=== PATIENT | female | born 1955 | race Caucasian/White ===

== ENCOUNTER → 2016-06-18 | Outpatient (CLI) | payer BC ==
[~2016-06-18] MED LIST: ALBU1AER9 INH; CINN500T PO; DOCU100C PO; LEVO75TA PO; NORT50CA PO; PRLSR20 PO; PROB1TAB16 PO; TRAM37.52 PO; TRAZ50TA35 PO; TRIA75TA PO; [UNRECOGNIZED DRUG - CODE] PO
--- NOTE | 2016-06-18 11:00 | DIAGNOSTIC IMAGING REPORT ---
CT OF THE CHEST WITHOUT IV CONTRAST CLINICAL HISTORY: COPD, Eosinophilic granuloma. Lung nodule. COMPARISON STUDY: 12/26/2015, 08/27/2015 CT DOSE: 609.93 mGy.cm TECHNIQUE: CT of the thorax was performed from the thoracic inlet to the lung bases. Images are reviewed in the axial, sagittal, and coronal planes. IV contrast was not administered for this examination. FINDINGS: Thyroid: Imaged portions of the thyroid gland are normal in appearance. Thoracic aorta: The thoracic aorta is normal in course and caliber, noting standard 3 vessel arch anatomy. Heart: There are moderate coronary artery calcifications present. Lungs and pleural spaces: There is right apical pleural and parenchymal scarring. There is evidence for pulmonary emphysema. There is no focal pulmonary consolidation. There is subpleural reticulation and microcyst formation. There is a stable 8 mm left lower lobe pulmonary nodule as visualized in image #[id number]. Mediastinum: There are mildly enlarged paratracheal lymph nodes measuring up to 11 mm in diameter. These are minimally more prominent than on the preceding study. Kalyn: There is no evidence of pathologic hilar adenopathy given the limitations of a noncontrast study Axilla: Clear. Upper abdomen: There is hepatic steatosis. The gallbladder surgically absent. There is calcific material in the region of the gallbladder fossa. Skeletal structures: There are no lytic or blastic osseous lesions. IMPRESSION: 1. Emphysema with persistent subpleural reticulation 2. Right upper lobe pleural and parenchymal scarring similar to the prior study 3. Stable (x9 months) 8 mm left lower lobe pulmonary nodule. Per Fleischner criteria, a follow-up study in 15 months is recommended. 4. Hepatic steatosis 5. Minimally enlarged mediastinal lymph nodes Please refer to below summary of Fleischner criteria recommendations for follow-up of incidental CT nodules (Andreas Forbes, Guidelines for management of small pulmonary nodules detected on CT scans: A statement from the Fleischner Society, Radiology 237: [phone].) Low Risk Patient: Minimal or no smoking or other known risk factors for malignancy <=4 mm: No follow-up needed. >4-6 mm: Initial follow-up CT at 12 months; if unchanged, no further follow-up. >6-8 mm: Initial follow-up CT at 6-12 months then at 18-24 months if no change. >8 mm: Follow-up CT at \R\3, 9, 24 months, or PET and/or biopsy. High Risk Patient: History of smoking or other known risk factors <=4 mm: Follow-up at 12 months; if unchanged, no further follow-up. >4-6 mm: Initial follow-up CT at 6-12 months then at 18-24 months if no change. >6-8 mm: Initial follow-up CT at 3-6 months then at 9-12 and 24 months if no change. >8 mm: Same as low risk patient. Note: Nodule size measured as average of length and width. Ground glass or partly solid nodules may require longer follow-up to exclude indolent adenocarcinoma. Electronically signed by: Adi Haro M.D. 06/18/2016 10:59 AM Dictated Date/Time: 06/18/2016 10:49 AM
== END | disposition home or self-care (01) ==
LOC: C.CTS 10:21
PROVIDERS: ATTEND Internal Medicine Pulmonary Disease
DX: C96.6 Unifocal Langerhans-cell histiocytosis (principal); J44.9 Chronic obstructive pulmonary disease, unspecified; R91.1 Solitary pulmonary nodule; J43.9 Emphysema, unspecified

== ENCOUNTER → 2016-06-21 | Outpatient (CLI) | payer BC ==
--- NOTE | 2016-06-21 15:14 | DIAGNOSTIC IMAGING REPORT ---
LEFT FOOT 3 VIEWS CLINICAL HISTORY: Cellulitis. FINDINGS: 3 views of the left foot are obtained. No prior studies are for comparison at the time of dictation. The skeletal structures appear osteopenic. There is no radiographic evidence of fracture. There is a bony excrescence arising from the dorsal/lateral proximal shaft of the first metatarsal which measures at least 2.5 cm. The appearance is typical for an osteochondroma. Mild arthritic change is present the first metatarsophalangeal joint. The joint spaces of the foot are otherwise well-maintained. Mild soft tissue edema is suggested in the forefoot. No subcutaneous gas or radiodense foreign body is seen. IMPRESSION: 1. Osteopenia and mild arthritic change with no acute bony abnormality seen in the left foot. 2. There is mild soft tissue swelling suggested in the forefoot. This could represent cellulitis as clinically suspected. 3. A 2.5 cm bony excrescence arising from the proximal shaft of the first metatarsal is typical appearance for an osteochondroma. Consider orthopedic follow-up if there is pain at this site. Electronically signed by: Mikhail Prater M.D. 06/21/2016 3:13 PM Dictated Date/Time: 06/21/2016 3:07 PM
== END | disposition home or self-care (01) ==
LOC: C.RAD1850 14:53
PROVIDERS: ATTEND Physician Assistant Medical
DX: L03.119 Cellulitis of unspecified part of limb (principal)

== ENCOUNTER → 2016-08-04 | Outpatient (CLI) | payer BC ==
[2016-08-04 12:27] LABS: ESTIMATED AVERAGE GLUCOSE 137 mg/dl; HA1C FLAG Normal (Normal)
[2016-08-04 13:45] LABS: ALT/SGPT 50 U/L (12-78); AST/SGOT 52 U/L (15-37); BLOOD UREA NITROGEN 15 mg/dl (7-18); BUN/CREATININE RATIO 16.6 (10-20); CALCIUM 9.2 mg/dl (8.5-10.1); CARBON DIOXIDE 29 mmol/L (21-32); CHLORIDE 100 mmol/L (98-107); CREATININE 0.88 mg/dl (0.60-1.20); GLUCOSE 165 mg/dl (70-99); POTASSIUM 3.7 mmol/L (3.5-5.1); SODIUM 137 mmol/L (136-145)
[2016-08-04 13:56] LABS: ALB/GLOB RATIO 0.8 (0.9-2); ALKALINE PHOSPHATASE 118 U/L (45-117)
== END | disposition home or self-care (01) ==
LOC: C.LABBFT 08:59
PROVIDERS: ATTEND Internal Medicine
DX: E11.9 Type 2 diabetes mellitus without complications (principal); E03.9 Hypothyroidism, unspecified; R77.1 Abnormality of globulin

== ENCOUNTER → 2016-08-09 | Outpatient (CLI) | payer BC ==
[2016-08-09 18:02] LABS: ALT/SGPT 44 U/L (12-78); AST/SGOT 62 U/L (15-37); BLOOD UREA NITROGEN 25 mg/dl (7-18); CALCIUM 9.4 mg/dl (8.5-10.1); CARBON DIOXIDE 32 mmol/L (21-32); CHLORIDE 104 mmol/L (98-107); GLUCOSE 89 mg/dl (70-99); POTASSIUM 3.8 mmol/L (3.5-5.1); SODIUM 141 mmol/L (136-145)
[2016-08-09 18:05] LABS: ALB/GLOB RATIO 0.8 (0.9-2); ALKALINE PHOSPHATASE 111 U/L (45-117); CHOLESTEROL 190 mg/dl (0-200); CHOLESTEROL/HDL RATIO 3.5; HDL CHOLESTEROL 54 mg/dl; LDL CHOLESTEROL CALCULATED 109 mg/dl; TRIGLYCERIDES 137 mg/dl (0-150); VERY LOW DENSITY LIPOPROT CALC 27 mg/dl
[2016-08-09 18:09] LABS: RATIO 16.2 mcg/mg (0-30.0)
[2016-08-10 07:15] LABS: ESTIMATED AVERAGE GLUCOSE 143 mg/dl; HA1C FLAG Normal (Normal)
== END | disposition home or self-care (01) ==
LOC: C.LABBFT 09:11
PROVIDERS: ATTEND Nurse Practitioner
DX: M10.9 Gout, unspecified (principal); E11.42 Type 2 diabetes mellitus with diabetic polyneuropathy

== ENCOUNTER → 2016-08-30 | Outpatient (CLI) | payer BC ==
[2016-08-30 12:54] LABS: BLOOD UREA NITROGEN 56 mg/dl (7-18); BUN/CREATININE RATIO 24.3 (10-20); CARBON DIOXIDE 26 mmol/L (21-32); CHLORIDE 103 mmol/L (98-107); GLUCOSE 108 mg/dl (70-99); POTASSIUM 4.1 mmol/L (3.5-5.1); SODIUM 138 mmol/L (136-145)
[2016-08-30 13:03] LABS: CALCIUM 8.5 mg/dl (8.5-10.1)
== END | disposition home or self-care (01) ==
LOC: C.LABBFT 10:50
PROVIDERS: ATTEND Nurse Practitioner
DX: I10 Essential (primary) hypertension (principal); E03.9 Hypothyroidism, unspecified

== ENCOUNTER → 2016-09-06 | Outpatient (CLI) | payer BC ==
[2016-09-06 12:24] LABS: BLOOD UREA NITROGEN 18 mg/dl (7-18); BUN/CREATININE RATIO 15.2 (10-20); CARBON DIOXIDE 27 mmol/L (21-32); CHLORIDE 103 mmol/L (98-107); GLUCOSE 198 mg/dl (70-99); SODIUM 142 mmol/L (136-145)
[2016-09-06 12:29] LABS: CALCIUM 8.8 mg/dl (8.5-10.1)
== END | disposition home or self-care (01) ==
LOC: C.LABBFT 09:43
PROVIDERS: ATTEND Nurse Practitioner
DX: R60.9 Edema, unspecified (principal)

== ENCOUNTER → 2016-09-21 | Outpatient (CLI) | payer BC ==
[2016-09-21 14:02] LABS: BLOOD UREA NITROGEN 19 mg/dl (7-18); BUN/CREATININE RATIO 16.8 (10-20); CALCIUM 8.7 mg/dl (8.5-10.1); CARBON DIOXIDE 28 mmol/L (21-32); CHLORIDE 104 mmol/L (98-107); GLUCOSE 184 mg/dl (70-99); POTASSIUM 4.6 mmol/L (3.5-5.1); SODIUM 139 mmol/L (136-145)
== END | disposition home or self-care (01) ==
LOC: C.LABBFT 10:24
PROVIDERS: ATTEND Nurse Practitioner
DX: N17.9 Acute kidney failure, unspecified (principal)

== ENCOUNTER → 2016-10-05 | Outpatient (CLI) | payer BC ==
[2016-10-05 14:38] LABS: HEMATOCRIT 38.2 % (37-47); MEAN CELL VOLUME 86.2 fL (80-100); MEAN CORPUSCULAR HEMOGLOBIN 29.3 pg (25-34); MEAN PLATELET VOLUME 10.7 fL (7.4-10.4); PLATELET COUNT 193 K/uL (130-400); RED BLOOD COUNT 4.43 M/uL (4.2-5.4); WHITE BLOOD COUNT 9.11 K/uL (4.8-10.8)
[2016-10-05 15:17] LABS: ALT/SGPT 41 U/L (12-78); CREATININE 0.95 mg/dl (0.60-1.20); URIC ACID 8.5 mg/dl (2.6-7.2)
[2016-10-05 15:20] LABS: ALKALINE PHOSPHATASE 103 U/L (45-117); AST/SGOT 48 U/L (15-37)
== END | disposition home or self-care (01) ==
LOC: C.LAB1850 13:38
PROVIDERS: ATTEND Internal Medicine Rheumatology
DX: R60.9 Edema, unspecified (principal); M10.9 Gout, unspecified

== ENCOUNTER → 2017-01-17 | Outpatient (CLI) | payer BC ==
--- NOTE | 2017-01-17 09:28 | DIAGNOSTIC IMAGING REPORT ---
CHEST 2 VIEWS ROUTINE HISTORY: 61 years-old Female R06.89 Adventitious breath sounds symptoms are acute in nature. COMPARISON: Chest CT 06/18/2016 TECHNIQUE: PA and lateral views of the chest FINDINGS: Cardiomediastinal and hilar silhouettes are within normal limits. There is atherosclerosis of the aorta. Postsurgical changes of the right lung apex with adjacent subsegmental pleural-parenchymal scarring. Evidence changes redemonstrated. Previously noted areas of subpleural reticulation on chest CT are not as identified by radiography. No pneumothorax, pleural effusion or focal airspace consolidation. Mild background interstitial coarsening. Bones are grossly intact. Prior cholecystectomy. IMPRESSION: 1. No acute cardiopulmonary process. 2. Emphysema with background chronic reticular interstitial opacities. 3. Postsurgical changes of the right lung apex. The above report was generated using voice recognition software. It may contain grammatical, syntax or spelling errors. Electronically signed by: Lalito Vines M.D. 01/17/2017 9:26 AM Dictated Date/Time: 01/17/2017 9:24 AM
== END | disposition home or self-care (01) ==
LOC: C.RAD1850 09:13
PROVIDERS: ATTEND Nurse Practitioner
DX: R06.89 Other abnormalities of breathing (principal)

== ENCOUNTER → 2017-01-24 | Outpatient (CLI) | payer BC ==
--- NOTE | 2017-01-25 07:26 | MAMMOGRAPHY REPORT ---
BILATERAL DIGITAL SCREENING MAMMOGRAM TOMOSYNTHESIS WITH CAD: 01/24/2017 CLINICAL HISTORY: Routine screening. Patient has no complaints. TECHNIQUE: Breast tomosynthesis in addition to standard 2D mammography was performed. Current study was also evaluated with a Computer Aided Detection (CAD) system. COMPARISON: Comparison is made to exams dated: 01/22/2016 mammogram, 01/20/2015 mammogram, 4 mammogram, 01/18/2013 mammogram, 01/18/2012 mammogram, and 12/29/2009 mammogram - [facility]. BREAST COMPOSITION: There are scattered areas of fibroglandular density in both breasts. FINDINGS: There are scattered punctate benign-appearing micro-calcifications bilaterally. Stable no dularity in the right breast. No new suspicious mass, architectural distortion or cluster of microcal cifications is seen. IMPRESSION: ACR BI-RADS CATEGORY 2: BENIGN There is no mammographic evidence of malignancy. A 1 year screening mammogram is recommended. The pa tient will receive written notification of the results. Approximately 10% of breast cancers are not detected with mammography. A negative mammographic report should not delay biopsy if a clinically suggestive mass is present. Niru Boston M.D. ay/:01/24/2017 20:35:44 Surgical Lead: Leeanna ALEXANDER)(Michelle), [facility] letter sent: Normal 1/2 BI-RADS Code: ACR BI-RADS Category 2: Benign
== END | disposition home or self-care (01) ==
LOC: C.MAMM 10:16
PROVIDERS: ATTEND Internal Medicine
DX: Z12.31 Encounter for screening mammogram for malignant neoplasm of breast (principal)

== ENCOUNTER → 2017-02-09 | Outpatient (CLI) | payer BC ==
[2017-02-09 17:36] LABS: BASO % 0.5 %; BASO ABS # 0.06 K/uL (0-0.2); COMPLETE YES; EOS % 0.7 %; HEMATOCRIT 41.2 % (37-47); IG% 0.2 %; LYMPH % 36.9 %; LYMPH ABS # 4.47 K/uL (1.2-3.4); MEAN CELL VOLUME 87.8 fL (80-100); MEAN CORPUSCULAR HEMOGLOBIN 28.8 pg (25-34); MEAN CORPUSCULAR HGB CONC 32.8 g/dl (32-36); MEAN PLATELET VOLUME 11.2 fL (7.4-10.4); NEUT % 57.7 %; PLATELET COUNT 215 K/uL (130-400); RED BLOOD COUNT 4.69 M/uL (4.2-5.4); WHITE BLOOD COUNT 12.11 K/uL (4.8-10.8)
[2017-02-09 17:48] LABS: ALT/SGPT 51 U/L (12-78); AST/SGOT 67 U/L (15-37); BLOOD UREA NITROGEN 13 mg/dl (7-18); BUN/CREATININE RATIO 17.4 (10-20); CALCIUM 8.6 mg/dl (8.5-10.1); CARBON DIOXIDE 29 mmol/L (21-32); CHLORIDE 104 mmol/L (98-107); CREATININE 0.72 mg/dl (0.60-1.20); GLUCOSE 83 mg/dl (70-99); POTASSIUM 3.6 mmol/L (3.5-5.1); SODIUM 139 mmol/L (136-145); URIC ACID 4.8 mg/dl (2.6-7.2)
[2017-02-09 17:59] LABS: CREATININE RANDOM URINE 63.9 mg/dl
[2017-02-09 18:00] LABS: ALB/GLOB RATIO 0.8 (0.9-2); ALKALINE PHOSPHATASE 115 U/L (45-117); CHOLESTEROL 198 mg/dl (0-200); CHOLESTEROL/HDL RATIO 3.6; HDL CHOLESTEROL 55 mg/dl; LDL CHOLESTEROL CALCULATED 117 mg/dl; THYROID STIMULATING HORMONE 0.296 uIu/ml (0.300-4.500); TRIGLYCERIDES 129 mg/dl (0-150); VERY LOW DENSITY LIPOPROT CALC 26 mg/dl
[2017-02-10 07:45] LABS: ESTIMATED AVERAGE GLUCOSE 134 mg/dl; HA1C FLAG Normal (Normal)
== END | disposition home or self-care (01) ==
LOC: C.LABBFT 12:07
PROVIDERS: ATTEND Internal Medicine Rheumatology
DX: E11.42 Type 2 diabetes mellitus with diabetic polyneuropathy (principal); M10.9 Gout, unspecified; E79.0 Hyperuricemia without signs of inflammatory arthritis and tophaceous disease; E03.9 Hypothyroidism, unspecified; E55.9 Vitamin D deficiency, unspecified; E78.00 Pure hypercholesterolemia, unspecified

== ENCOUNTER → 2017-02-15 | Outpatient (CLI) | payer BC ==
--- NOTE | 2017-02-15 11:35 | DIAGNOSTIC IMAGING REPORT ---
(CHEST) THORAX WITHOUT CT DOSE: 641.77 mGy.cm HISTORY: J44.9 Chronic obstructive pulmonary eqrcngsM91.1 Lung [id number]. TECHNIQUE: Multiaxial CT images of the chest were performed without contrast. A dose lowering technique was utilized adhering to the principles of ALARA. COMPARISON: Chest CT 06/18/2016. FINDINGS: The left lower lobe irregular nodule has increased in size and now measures 9 x 9 mm, previous measuring 8 x 4 mm. This may contain a punctate focus of central cavitation. Emphysema and diffuse residual thickening persists. Suture material within the right lung apex is again noted. No suspicious lytic or blastic osseous lesions. A few mildly enlarged mediastinal lymph nodes are again noted. Dominant lymph node measures 12 mm in short axis diameter. These are not significantly changed. No definite hilar lymphadenopathy. Normal caliber thoracic aorta. The heart is also normal in size. Cholecystectomy. Hepatic steatosis. The liver, spleen, and visualized adrenal glands are unremarkable. IMPRESSION: 1. Increase in size in the 9 x 9 mm irregular nodule within the left lower lobe. This may contain a punctate focus of central cavitation. Therefore, this could be due to inflammatory/infectious change. However, neoplasm remains the diagnosis of exclusion. At a minimum, 2-[address] follow-up is recommended. 2. Emphysema. 3. Chronic interstitial thickening. 4. Stable borderline mediastinal lymphadenopathy. Electronically signed by: Prosper Douglas M.D. 02/15/2017 11:34 AM Dictated Date/Time: 02/15/2017 11:24 AM
== END | disposition home or self-care (01) ==
LOC: C.CTS 10:20
PROVIDERS: ATTEND Internal Medicine Pulmonary Disease
DX: J44.9 Chronic obstructive pulmonary disease, unspecified (principal); R09.89 Other specified symptoms and signs involving the circulatory and respiratory systems; R91.1 Solitary pulmonary nodule

== ENCOUNTER → 2017-04-12 | Outpatient (CLI) | payer BC ==
--- NOTE | 2017-04-12 10:04 | DIAGNOSTIC IMAGING REPORT ---
CT OF THE CHEST WITHOUT IV CONTRAST CLINICAL HISTORY: Pulmonary nodule follow-up. Abnormal chest CT. COMPARISON STUDY: Chest CT July 14, 2016 and February 15, 2017. CT DOSE: 505.24 mGycm TECHNIQUE: Axial images of the chest were obtained without IV contrast. Images were reviewed in the axial, sagittal, and coronal planes. IV contrast was not administered for this examination. A dose lowering technique was utilized adhering to the principles of ALARA. FINDINGS: Prominent mediastinal lymph nodes are unchanged. An index right paratracheal left node measures 1.1 cm in short axis diameter. This is unchanged. The size of the heart is at the upper limits of normal. There is extensive coronary artery calcification. There is no pericardial effusion. Central airways are patent. There is moderate emphysema. A 1.1 x 1 cm irregular solid nodule within the left lower lobe has minimally increased in size since CT of February 15, 2017 when it measured 1 x 0.9 cm. This has spiculated margins. No additional suspicious nodules are present. No consolidation to suggest pneumonia. There is no pneumothorax or pleural effusion. No suspicious osseous lesions are present. Fatty infiltration of the liver is noted. IMPRESSION: 1. Minimal increase in size of a 1.1 x 1 cm spiculated left lower lobe nodule. This nodule is highly suggestive of bronchogenic carcinoma. Pulmonary consultation is recommended. 2. Moderate emphysema. 3. No change in prominent mediastinal lymph nodes. No definite pathologic lymphadenopathy. 4. Extensive coronary artery calcification. Electronically signed by: Delfin Jones M.D. 04/12/2017 10:02 AM Dictated Date/Time: 04/12/2017 9:48 AM
== END | disposition home or self-care (01) ==
LOC: C.CTS 09:38
PROVIDERS: ATTEND Physician Assistant Medical
DX: R91.1 Solitary pulmonary nodule (principal); R93.8 Abnormal findings on diagnostic imaging of other specified body structures; J43.9 Emphysema, unspecified; R59.0 Localized enlarged lymph nodes; I25.10 Atherosclerotic heart disease of native coronary artery without angina pectoris

== ENCOUNTER → 2017-04-25 | Outpatient (CLI) | payer BC ==
[~2017-04-25] MED LIST changes: +ALLO100T PO
[2017-04-25 14:38] LABS: BASO % 0.8 %; BASO ABS # 0.08 K/uL (0-0.2); EOS % 0.4 %; EOS ABS # 0.04 K/uL (0-0.5); HEMOGLOBIN 13.7 g/dL (12.0-16.0); IG# 0.03 K/uL (0.00-0.02); LYMPH % 35.7 %; LYMPH ABS # 3.49 K/uL (1.2-3.4); MEAN CELL VOLUME 88.2 fL (80-100); MEAN CORPUSCULAR HEMOGLOBIN 28.8 pg (25-34); MEAN CORPUSCULAR HGB CONC 32.6 g/dl (32-36); MEAN PLATELET VOLUME 10.9 fL (7.4-10.4); MONO % 3.9 %; MONO ABS # 0.38 K/uL (0.11-0.59); NEUT % 58.9 %; NEUT ABS # 5.75 K/uL (1.4-6.5); PLATELET COUNT 199 K/uL (130-400); RED CELL DISTRIBUTION WIDTH SD 47.8 fL (36.4-46.3); WHITE BLOOD COUNT 9.77 K/uL (4.8-10.8)
[2017-04-25 15:10] LABS: BLOOD UREA NITROGEN 10 mg/dl (7-18); CALCIUM 9.1 mg/dl (8.5-10.1); CARBON DIOXIDE 28 mmol/L (21-32); CREATININE 0.66 mg/dl (0.60-1.20); GLUCOSE 98 mg/dl (70-99); POTASSIUM 3.5 mmol/L (3.5-5.1); SODIUM 137 mmol/L (136-145)
== END | disposition home or self-care (01) ==
LOC: C.LAB1850 12:28
PROVIDERS: ATTEND Surgery
DX: R91.1 Solitary pulmonary nodule (principal); Z01.812 Encounter for preprocedural laboratory examination

== ENCOUNTER → 2017-05-02 | Outpatient (CLI) | payer BC ==
[~2017-05-02] MED LIST changes: +ACET-1047 PO; -ALBU1AER9 INH; +CLC100 PO; +TRAM-453 PO; -TRAM37.52 PO
--- NOTE | 2017-05-02 11:15 | DIAGNOSTIC IMAGING REPORT ---
PET/CT CLINICAL HISTORY: Pulmonary nodule. COMPARISON STUDY: Chest CT scans dated 04/12/2017 and 08/27/2015. TECHNIQUE: One hour following the IV administration of 13.71 mCi of F-18 FDG, PET/CT examination was performed from the orbital meatal line through the bony pelvis. Noncontrast CT is performed for the purposes of anatomic correlation and attenuation correction. Note that this does not reflect a diagnostic CT examination. Images were reviewed on a separate [employer] independent workstation. Fused images were obtained. Standard uptake values reported are maximum values within the region of interest expressed in gm/mL. FINDINGS: PET FINDINGS: Head and neck: There is expected physiologic activity within the visualized brain parenchyma at the skull base and the salivary glands. Thorax: Evaluation of the thorax demonstrates expected physiologic myocardial activity. There is a 1.2 cm spiculated nodule in the left lower lobe seen on image #86. This is FDG avid with a maximum SUV of 4.4. No FDG avid mediastinal or hilar lymph nodes are identified. No additional pulmonary lesion is seen. Abdomen and pelvis: There is expected activity within the liver, spleen, kidneys, renal collecting system, and bladder. Low-level bowel activity is likely within physical limits. Unenhanced CT images: Partially visualized brain parenchyma the skull base is within normal limits. The bony orbits are intact and the orbital contents are unremarkable noting bilateral ocular lens implants. The visualized paranasal sinuses and the mastoid air cells appear clear. The salivary glands are within normal limits. The thyroid appears atrophic. No cervical lymphadenopathy is seen. There is mild atherosclerotic calcification of the thoracic aorta which is normal in caliber. The heart is normal in size. There are coronary artery calcifications. Emphysema is noted. No airspace consolidation or pleural effusion is identified. See above under PET findings for discussion of a left lower lobe pulmonary lesion. Postoperative changes suggested in the right lower lobe. There is no mediastinal, hilar, or axillary lymphadenopathy. There is evidence of hepatic steatosis. The gallbladder is surgically absent. The unenhanced spleen, adrenal glands, and pancreas are grossly normal. The kidneys demonstrate cortical atrophy and are without hydronephrosis. The abdominal aorta is normal in caliber noting advanced atherosclerotic calcification. No bowel obstruction is seen. A normal appendix is identified. There is mild colonic diverticulosis without CT evidence of acute diverticulitis. No intraperitoneal free air or abdominal ascites is identified. There is no abdominal, mesenteric, retroperitoneal, pelvic sidewall, or inguinal lymphadenopathy. The bladder is decompressed and grossly unremarkable. The uterus is surgically absent. No adnexal lesion is seen. Skeletal structures are osteopenic. Mild degenerative change and scoliosis are seen throughout the spine. IMPRESSION: 1. Again seen is a 1.2 cm spiculated pulmonary nodule in the left lower lobe. This is FDG avid and should be considered neoplasm until otherwise. 2. There is no evidence of FDG avid metastatic disease. 3. Emphysema. 4. Hepatic steatosis. 5. Additional findings as above. Electronically signed by: Mikhail Prater M.D. 05/02/2017 11:14 AM Dictated Date/Time: 05/02/2017 11:02 AM
== END | disposition home or self-care (01) ==
LOC: C.PET 07:05
PROVIDERS: ATTEND Surgery
DX: R91.1 Solitary pulmonary nodule (principal); J43.9 Emphysema, unspecified; K76.0 Fatty (change of) liver, not elsewhere classified

== ENCOUNTER 2017-05-04 09:36 | Inpatient (IN) | payer BC, OTHER ==
[2017-04-28 15:16] VITALS: BMI 34.0
[~2017-05-04] VITALS: Ht 165.1 cm; Wt 94.5 kg
[2017-05-04] VITALS (8 sets, daily range): BP systolic 102–152; BP diastolic 60–98; PULSE 86–99; TEMP 36.5–36.8; O2SAT 92–99; Ht 165.1 cm; Wt 94.5 kg
[~2017-05-04 09:36] MED LIST changes: -ACET-1047 PO; -CLC100 PO; +LACTATED RINGER'S 1000ML 1,000 ML IV SCH; -TRAM-453 PO
[2017-05-04] MEDS ORDERED: NEOSTIGMINE METHYLSULFATE 5 MG/5 ML SYR ONE (12:28)
[2017-05-04] MEDS ORDERED: FENTANYL CITRATE INJ 50 MCG/1 ML 2 ML VIAL ONE ×3 (12:28→15:52)
[2017-05-04] MEDS ORDERED: GLYCOPYRROLATE INJ 0.2 MG/ML VIAL ONE (12:28)
[2017-05-04] MEDS ORDERED: MIDAZOLAM HCL 1 MG/ML 2ML VIAL ONE (12:28)
[2017-05-04] MEDS ORDERED: LIDOCAINE HCL 2% 2 ML VIAL (20MG/ML) ONE (12:28)
[2017-05-04] MEDS ORDERED: DEXAMETHASONE SOD INJ 4 MG/ML VIAL ONE (12:28)
[2017-05-04] MEDS ORDERED: PROPOFOL IV EMULSION 10 MG/ML 20 ML VIAL IV ONE (12:28)
[2017-05-04] MEDS ORDERED: ONDANSETRON INJ 2 MG/ML 2 ML VIAL ONE (12:28)
--- NOTE | 2017-05-04 12:52 | History & Physical Bridge Note ---
H&P Re-Evaluation Bridge Note: I have examined the patient, reviewed the History & Physical and in the interval since the performance of the History & Physical I have noted the following changes of clinical significance: No changes noted
[2017-05-04] MEDS ORDERED: ALBUTEROL HFA INHALER 8.5 GM INH ONE (12:57)
[2017-05-04] MEDS ORDERED: SODIUM CHLORIDE 0.9% PF 50 ML VIAL ONE (13:15)
[2017-05-04] MEDS ORDERED: BUPIVACAINE 0.5 % 5 MG/1 ML MPF 30ML VIAL ONE (13:15)
[2017-05-04] MEDS ORDERED: BUPIVACAINE LIPOSOME 1/3% 266 MG/20 ML VIAL INFIL ONE (13:16)
[2017-05-04] MEDS ORDERED: CEFAZOLIN SOD 1 GM VIAL ONE ×2 (14:19→15:52)
[2017-05-04] MEDS ORDERED: ONDANSETRON INJ 2 MG/ML 2 ML VIAL IV PRN ×2 (15:30→18:15)
[2017-05-04] MEDS ORDERED: PROMETHAZINE HCL INJ 12.5 MG in SODIUM CHLORIDE 0.9% 50ML 50 ML IV PRN (15:30)
[2017-05-04] MEDS ORDERED: FLUMAZENIL 0.1 MG/1 ML 10 ML VIAL IV PRN (15:30)
[2017-05-04] MEDS ORDERED: ATROPINE SULFATE 0.1 MG/ML 5ML SYR IV PRN (15:30)
[2017-05-04] MEDS ORDERED: HYDROmorphone INJ 1 MG/ML SYR IV PRN (15:30)
[2017-05-04] MEDS ORDERED: LABETALOL HCL IV 5 MG/ML 20ML IV PRN (15:30)
[2017-05-04] MEDS ORDERED: NALOXONE HCL 0.4 MG/1 ML VIAL/CARP IV PRN (15:30)
[2017-05-04] MEDS ORDERED: EpHEDrine SULFATE INJ 50 MG/ML AMP IV PRN (15:30)
--- NOTE | 2017-05-04 15:46 | OPERATIVE REPORT ---
DATE OF OPERATION: 05/04/2017 PREOPERATIVE DIAGNOSIS: Suspicious left lower lobe mass with mild mediastinal adenopathy. POSTOPERATIVE DIAGNOSIS: Same. PROCEDURE PERFORMED: Video mediastinoscopy. SURGEON: Dr. Glen Vences. MATERIAL CONTROL SPECIALIST: LORI Hameed (Mr. Dalton was present for the entire case and helped hold the scope with the laboratory assistant and also closed the skin at the conclusion of the case). ANESTHESIA: General anesthesia endotracheal intubation. INDICATION OF THE PROCEDURE AND FINDINGS: Yessica Booth is a 61-year-old female with a suspicious lesion in the left lower lobe, which we are going to biopsy. I felt that prior to going in to do a possible lobectomy, we should evaluate the mediastinum even though the PET scan showed no evidence of hypermetabolic uptake. On 05/04/2017, the patient underwent an uncomplicated video mediastinoscopy and biopsy of right level 2, right level 4 and level 7 nodes. They were a bit large, but they were acanthotic. I sent this off to frozen sections. She tolerated it well. DESCRIPTION OF PROCEDURE: The patient was brought to the operating room, laid in supine position. General anesthesia induced and endotracheal intubation was performed. She was prepped and draped in usual sterile fashion. Incision was made one fingerbreadth above the sternal notch. Sharp and blunt dissection was used to dissect down the strap muscles, which were divided in the midline. We stayed in a relatively avascular plane. Blunt dissection was used to create a plane in the pretracheal area and then the video mediastinoscope was inserted. There were rather large right level 2 and right level 4 nodes as a mat of level 7 nodes. These were soft and acanthotic. I biopsied all 3 of these extensively. Bleeding was controlled with a suction cautery. I did not biopsy anything on the left side. She really had very little in the way of bleeding. I slowly withdrew the video mediastinoscope. A 3-0 Vicryl was used to close the strap muscles and 4-0 Monocryl was used in a running subcuticular fashion. I approximated the wound edges. She tolerated it well. I attest to the content of the Intraoperative Record and any orders documented therein. Any exception s are noted below.
[2017-05-04] MEDS ORDERED: SURGICEL ABSORB HEMOSTAT 2IN X 14IN TOP ONE (16:14)
[2017-05-04] MEDS ORDERED: EpHEDrine SULFATE 50MG/5ML SYR ONE (16:58)
[2017-05-04] MEDS ORDERED: PHENYLEPHRINE HCL INJ 10 MG/ML VIAL ONE (16:58)
[2017-05-04] MEDS ORDERED: HYDROmorphone INJ 2 MG/ML SYR/VIAL ONE (17:13)
[2017-05-04] MEDS ORDERED: ROCURONIUM BROMIDE 10 MG/ML 5 ML VIAL IV ONE (17:13)
--- NOTE | 2017-05-04 17:58 | [facility] Post Operative Brief Note ---
Immediate Operative Summary Operative Date May 04, 2017. Pre-Operative Diagnosis Left lung nodule. Post-Operative Diagnosis Carcinoma of the left lower lobe Procedure(s) Performed Video Mediastinoscopy with Biopsy; Left Video-Assisted Thoracoscopy with Left Lower Lobe Wedge Resection, Left Lower Lobectomy and Mediastinal Lymphadenectomy Jose J Surgeon Dr. Vences Blanking Press Operator Surgeon(s) Kenny Dalton, PAC Estimated Blood Loss 150ml Findings Consistent with Post-Op Diagnosis Specimens FS#6 left lower lobe for margins and diagnosis sent to lab at 1729 Anesthesia Type General
[2017-05-04] MEDS ORDERED: MoRPHine SULFATE 2 MG/ML CARP IV PRN (18:15)
--- NOTE | 2017-05-04 19:03 | Anesthesiology Progress Note ---
Anesthesia Post Op Note Date & Time May 04, 2017 at 19:03 Vital Signs Pain Intensity: 0 Vital Signs Past 12 Hours Date Time Temp Pulse Resp B/P (MAP) Pulse Ox O2 Delivery O2 Flow Rate FiO2 05/04/17 18:26 36.1 78 15 104/68 (80) 100 Oxymask 10 05/04/17 10:16 36.8 96 18 138/78 98 Room Air Notes Mental Status: alert / awake / arousable, participated in evaluation Pt Amnestic to Procedure: Yes Nausea / Vomiting: adequately controlled Pain: adequately controlled Airway Patency, RR, SpO2: stable & adequate BP & HR: stable & adequate Hydration State: stable & adequate Anesthetic Complications: no major complications apparent
--- NOTE | 2017-05-04 19:24 | DIAGNOSTIC IMAGING REPORT ---
CHEST ONE VIEW PORTABLE HISTORY: Status post left lower lobectomy. COMPARISON: Chest 01/17/2017. FINDINGS: Small left apical pneumothorax with a pleural gap of 1.5 cm. Left-sided chest tube terminates in the left lateral lung apex. Bibasilar densities favor atelectasis. The heart is mildly enlarged. Patient is slightly rotated. No evidence for pulmonary edema. Cholecystectomy. IMPRESSION: Small left pneumothorax with a left-sided chest tube in good position as described above. Electronically signed by: Prosper Douglas M.D. 05/04/2017 7:23 PM Dictated Date/Time: 05/04/2017 7:21 PM
[2017-05-04] MEDS ORDERED: NURSING VERBAL MED ORDER ONE (19:45)
--- NOTE | 2017-05-04 19:59 | OPERATIVE REPORT ---
DATE OF OPERATION: 05/04/2017 PREOPERATIVE DIAGNOSIS: Hypermetabolic mass, left lower lobe. POSTOPERATIVE DIAGNOSIS: Carcinoma, left lower lobe. PROCEDURE: 1. Robot-assisted thoracoscopic wedge resection of left lower lobe. 2. Thoracoscopic left lower lobectomy. SURGEON: Glen Vences MD. HOSPITAL UNIT CLERK: LORI Hameed, (MrZachery Dalton was present for the entire case and was at the patient's bedside while I was at the console. He was instrumental in first assisting throughout the entirety of the case and was present and closed the skin incisions at the conclusion of the case). ANESTHESIA: General anesthesia endotracheal intubation. INDICATION FOR PROCEDURE AND FINDINGS: Yessica Booth is a 61-year-old patient with a history of cigarette smoking in the past, was found to have a mass which was enlarging and hypermetabolic in her left lower lobe. A metastatic workup showed no evidence of spread. On 05/04/2017, I took the patient to the operating room and did a mediastinoscopy. Frozen section showed no evidence of metastatic disease. I then performed a wedge resection, although I really did not find the mass. Given its hypermetabolic activity, I elected to proceed with lobectomy. I performed the robot-assisted thoracoscopic lobectomy without difficulty. We did dissect out some lymph nodes. She tolerated it well. Frozen section of the mass showed this to be probable adenocarcinoma of the lung. Her margins were negative. DESCRIPTION OF THE PROCEDURE: The patient was brought to the operating room and was placed in supine position. General anesthesia induced and endotracheal intubation was performed. After performing the mediastinoscopy this was switched to a double lumen tube. The patient was placed in a right lateral decubitus position. Left chest prepped and draped in usual sterile fashion. A total of 5 incisions were made. Two 12 mm, two 8 mm and a 5 mm ports were placed in the eight interspace. Upon entering the chest cavity, the fissures were seen to be almost complete. We docked the robot and placed our instruments. We then took down the inferior pulmonary ligament. I really did not see a level 9 lymph node but she had sent several level 8 and we dissected out the inferior pulmonary vein. I then came down on the posterior aspect of the hilum and dissected out several lymph nodes and came up to the fissure. I then switched around anteriorly and took down the pleura and dissected out the vein nicely as well as the bronchus and then came down and the artery from the bronchus. The fissure was just about complete. Endo-MARI stapler was fired around the continuation of pulmonary artery below the takeoff of the lingula and then I fire another stapler to the artery to the superior segment of the lower lobe. We then fired a stapler across the bronchus distal to the lingular bronchus. We then fired a stapler across the vein. This was then delivered into an Endobag and taken off and I removed it from the bag through the assistance port where we had to enlarge. I did dissect out several level 11 and level 12 nodes; however, we lost one lung ventilation, it was difficult to get up around the hilum. We elected to stop. I did do an Exparel block with 266 mg of Exparel and 30 mL of 0.5% bupivacaine mixed with 100 mL of normal saline. We performed intercostal block from the 2nd to the 11th rib and also did injected the incision, especially chest tube site. A 24-Greek chest tube was directed towards the apex of the anterior most port. Sutured in place with heavy silk suture. The incisions were closed with 0 Vicryl to close the muscle layers especially the rn first assistant's port. 4-0 Monocryl was then used in running subcuticular fashion to approximate the wound edges. She tolerated it well and was extubated in the room. I attest to the content of the Intraoperative Record and any orders documented therein. Any exception s are noted below.
[2017-05-04] MEDS: ACETAMINOPHEN IV 1,000 MG in EMPTY BAG 0 ML IV SCH (20:00)
[2017-05-04] MEDS ORDERED: PHARMACY GLYCEMIC MGMT CONSULT PRN (20:01)
[2017-05-04] MEDS: KETOROLAC TROMETHAMINE 15 MG/ML VIAL IV. SCH (20:39)
[2017-05-04] MEDS: SODIUM CHLOR 0.45% + 20MEQ KCL 1,000 ML IV SCH (20:40)
[2017-05-04] MEDS ORDERED: LANTUS PER UNIT CHARGE SQ ONE (21:00)
--- NOTE | 2017-05-04 21:01 | Pharmacy Progress Note ---
Glycemic Control Intl Consult Date of Service May 04, 2017. Scope Glycemic Pharmacist consulted by Dr Vences on 05/04/17 for glycemic control and to write orders per [facility] inpatient glycemic control protocol Objective Weight (Kilograms): 94.55 Accuchecks BSG (last 24hrs): Test 05/04/17 09:57 05/04/17 19:30 05/04/17 20:38 Bedside Glucose 116 mg/dl (70-90) 181 mg/dl (70-90) 181 mg/dl (70-90) HbA1c 6.3% on 02/09/17 Recent Pertinent Medications Outpatient Anti-diabetic Regimen: * Cinnamon 500mg 2 tab po QAM Risk Factors for Insulin Resistance: * Steroids: Dexamethasone 8mg IV x1 at ~1230 05/04/17 * Recent Surgery: Lung lobectomy 05/04/17 * Diet:T2DM Assessment & Plan ASSESSMENT: * Ms. Booth is a 61yo F s/p lung lobectomy. Her most recent A1C is 6.3% from , indicative of pre-diabetes. She takes 2 tablets of 500mg cinnamon QAM, otherwise she takes nothing else for her pre-diabetes. She received 8mg of IV dexamethasone intra-operatively today. Along with her surgery today, I feel she is in a insulin resistant state for the next ~24hrs. PLAN FOR INPATIENT GLYCEMIC CONTROL: * Holding outpatient oral diabetes medications * Basal insulin with LANTUS 30u x1 * Correctional Insulin with NOVOLOG per scale ACHS * Goal Range: Low 110 mg/dL - High 140 mg/dL * Correction Factor: 15 mg/dL/unit * Nutritional / Prandial insulin per carb ratio of 1 unit per 6 grams CHO consumed * Please note that the plan above was derived based on current level of insulin resistance and hospital stress. These recommendations are appropriate for inpatient admission only. Plan of care upon discharge will need to be reassessed to avoid potential outpatient hypo/hyperglycemia. Thank you.
[2017-05-04] MEDS: INSULIN ASPART 100 UNITS/ML 3 ML PEN SC SCH (21:04)
[2017-05-04] MEDS: PREGABALIN 75 MG CAP PO SCH (21:09)
[2017-05-04] MEDS: TRAZODONE HCL 50 MG TAB PO SCH (21:10)
[2017-05-04] MEDS: NORTRIPTYLINE HCL 25 MG CAP PO SCH (21:10)
[2017-05-04] MEDS: PANTOprazole SOD 40 MG TAB PO SCH (21:10)
[2017-05-04] MEDS: DOCUSATE SODIUM 100 MG CAP PO SCH (21:10)
[2017-05-04] MEDS ORDERED: DEXTROSE 50% 50 ML SYR IV PRN (21:15)
[2017-05-04] MEDS ORDERED: GLUCAGON FOR INJ 1 MG VIAL SQ PRN (21:15)
[2017-05-04] MEDS ORDERED: GLUCOSE 10 TABS/TUBE PO PRN (21:15)
[2017-05-04] MEDS ORDERED: GLUCOSE 40% GEL 15 GM TUBE PO PRN (21:15)
[2017-05-04] MEDS: METOCLOPRAMIDE HCL INJ 5 MG/ML 2 ML VIAL IV. SCH (22:08)
[2017-05-05] VITALS (10 sets, daily range): BP systolic 93–128; BP diastolic 63–75; PULSE 78–94; TEMP 36.5–37; O2SAT 88–98
[2017-05-05] MEDS: ACETAMINOPHEN IV 1,000 MG in EMPTY BAG 0 ML IV SCH (03:52)
[2017-05-05] MEDS: KETOROLAC TROMETHAMINE 15 MG/ML VIAL IV. SCH ×3 (03:52→19:56)
[2017-05-05] MEDS: LEVOTHYROXINE 75 MCG TAB PO SCH (06:10)
[2017-05-05] MEDS: METOCLOPRAMIDE HCL INJ 5 MG/ML 2 ML VIAL IV. SCH ×2 (06:10→13:21)
--- NOTE | 2017-05-05 07:10 | DIAGNOSTIC IMAGING REPORT ---
CHEST ONE VIEW PORTABLE CLINICAL HISTORY: Postop examination COMPARISON STUDY: 05/04/2017 FINDINGS: The cardiac and sternal contours remain stable. There is a left-sided chest tube present. There is a left apical pneumothorax the pleural separation is 16 mm. There are improving right basilar airspace opacities. There is slight indistinctness of the left hemidiaphragm suggesting left basilar atelectasis.[ IMPRESSION: Persistent 16mm left apical pneumothorax. No change in the position of the left-sided chest tube Electronically signed by: Adi Haro M.D. 05/05/2017 7:09 AM Dictated Date/Time: 05/05/2017 7:08 AM
[2017-05-05] MEDS: SODIUM CHLOR 0.45% + 20MEQ KCL 1,000 ML IV SCH (07:57)
[2017-05-05 08:24] LABS: CALCIUM 7.9 mg/dl (8.5-10.1); CREATININE 0.63 mg/dl (0.60-1.20); POTASSIUM 3.7 mmol/L (3.5-5.1)
[2017-05-05 08:30] LABS: BASO % 0.2 %; BASO ABS # 0.03 K/uL (0-0.2); EOS % 0.2 %; EOS ABS # 0.02 K/uL (0-0.5); HEMATOCRIT 35.4 % (37-47); HEMOGLOBIN 11.8 g/dL (12.0-16.0); IG# 0.02 K/uL (0.00-0.02); LYMPH % 22.2 %; LYMPH ABS # 2.91 K/uL (1.2-3.4); MEAN CELL VOLUME 87.8 fL (80-100); MEAN CORPUSCULAR HEMOGLOBIN 29.3 pg (25-34); MEAN CORPUSCULAR HGB CONC 33.3 g/dl (32-36); MONO % 7.9 %; MONO ABS # 1.04 K/uL (0.11-0.59); NEUT % 69.3 %; NEUT ABS # 9.07 K/uL (1.4-6.5); PLATELET COUNT 192 K/uL (130-400); RED CELL DISTRIBUTION WIDTH CV 14.6 % (11.5-14.5); WHITE BLOOD COUNT 13.09 K/uL (4.8-10.8)
[2017-05-05] MEDS: DOCUSATE SODIUM 100 MG CAP PO SCH ×2 (08:37→21:02)
[2017-05-05] MEDS: ALLOPURINOL 100 MG TAB PO SCH (08:37)
[2017-05-05] MEDS: INSULIN ASPART 100 UNITS/ML 3 ML PEN SC SCH ×4 (08:41→21:00)
[2017-05-05] MEDS: PREGABALIN 75 MG CAP PO SCH ×3 (08:42→21:02)
[2017-05-05] MEDS ORDERED: NON-FORMULARY MEDICATION (Probiotic Product (Probiotic) 1 TAB) PO SCH (09:00)
[2017-05-05] MEDS ORDERED: CINNAMON PO SCH (09:00)
[2017-05-05 09:21] LABS: INR 1.1 (0.9-1.1); PTT PATIENT 24.7 SECONDS (21.0-31.0)
--- NOTE | 2017-05-05 09:30 | Surgery Progress Note ---
Subjective Date of Service: May 05, 2017. Pt. notes good pain control. No SOB. She is ambulating and tolerating oral intake. She is voiding without difficulty. Objective Vitals Date Time Temp Pulse Resp B/P (MAP) Pulse Ox O2 Delivery O2 Flow Rate FiO2 05/05/17 07:45 36.5 82 16 110/74 (86) 95 Nasal Cannula 1.0 05/05/17 06:00 90 Room Air 05/05/17 05:45 36.7 78 18 93/63 (73) 97 Nasal Cannula 1.0 05/05/17 03:45 36.5 84 16 102/67 (79) 98 Nasal Cannula 1.0 05/05/17 01:45 36.5 84 16 102/68 (79) 97 Nasal Cannula 1.0 05/05/17 00:10 Nasal Cannula 2.0 05/04/17 23:45 36.5 86 16 102/67 (79) 97 Nasal Cannula 1.0 05/04/17 22:46 36.7 91 18 102/60 (74) 97 Nasal Cannula 1.0 05/04/17 22:19 92 Room Air 05/04/17 21:45 36.5 99 18 125/72 (89) 97 Nasal Cannula 1.0 05/04/17 20:52 36.5 92 16 146/85 (105) 96 Nasal Cannula 2.0 05/04/17 20:15 36.5 89 16 142/85 (104) 97 Nasal Cannula 2.0 05/04/17 19:45 36.5 91 16 152/98 (116) 99 Nasal Cannula 2.0 05/04/17 19:45 Nasal Cannula 2.0 05/04/17 19:45 Nasal Cannula 2.0 05/04/17 19:36 145/83 05/04/17 19:32 89 8 99 05/04/17 19:32 89 8 05/04/17 19:31 166/93 05/04/17 19:27 85 13 05/04/17 19:27 85 13 97 05/04/17 19:26 137/98 05/04/17 19:22 88 9 05/04/17 19:22 88 9 98 05/04/17 19:21 155/87 05/04/17 19:17 84 12 98 05/04/17 19:17 84 12 05/04/17 19:16 157/80 05/04/17 19:14 154/89 05/04/17 19:12 86 13 98 05/04/17 19:12 86 13 05/04/17 19:11 153/87 05/04/17 19:07 86 12 05/04/17 19:07 86 12 97 05/04/17 19:06 150/77 05/04/17 19:05 36.2 82 21 150/77 98 Room Air 10 05/04/17 19:02 84 15 97 05/04/17 19:02 84 15 05/04/17 19:01 86 21 05/04/17 19:01 85 21 142/98 98 05/04/17 18:56 81 14 140/78 96 05/04/17 18:56 81 14 05/04/17 18:51 79 11 05/04/17 18:51 79 11 138/83 96 05/04/17 18:46 80 14 05/04/17 18:46 80 14 144/77 98 05/04/17 18:41 78 12 05/04/17 18:41 78 12 142/73 97 05/04/17 18:36 78 14 137/71 100 05/04/17 18:36 78 14 05/04/17 18:31 80 19 05/04/17 18:31 80 19 131/76 100 05/04/17 18:26 78 8 104/68 92 05/04/17 18:26 76 8 05/04/17 18:26 36.1 78 15 104/68 (80) 100 Oxymask 10 05/04/17 10:16 36.8 96 18 138/78 98 Room Air Physical Exam General: + well developed, + well nourished CV: + RRR Pulmonary: + pertinent finding (decreased BS at bases), No accessory muscle use, No respiratory distress Abdomen: + non-distended, + non tender, + soft Extremities: No calf tenderness Neurologic: + alert & oriented x 3 Laboratory Item Value Date Time Sodium Level 138 mmol/L 05/05/17 0745 Potassium Level 3.7 mmol/L 05/05/17 0745 Blood Urea Nitrogen 10 mg/dl 05/05/17 0745 Creatinine 0.63 mg/dl 05/05/17 0745 Item Value Date Time White Blood Count 13.09 K/uL H 05/05/17 0745 Hemoglobin 11.8 g/dL L 05/05/17 0745 Hematocrit 35.4 % L 05/05/17 0745 Platelet Count 192 K/uL 05/05/17 0745 Radiology CXR shows no pleural effusion; small apical left pneumothorax Drains / Tubes chest tube (no air leak, 38 cc last shift ) Assessment & Plan 61 year old female s/p mediastinoscopy, LLL -prelim. path showed adenocarcinoma -chest tube with no air leak -keep CT in x 1 more day and remove tomorrow if no air leak -continue pain control measures -ambulation, coughing, deep breathing, use of IS to be encouraged OTHER -lovenox for DVT prevention
[2017-05-05 09:32] LABS: CREATININE 0.62 mg/dl (0.60-1.20)
[2017-05-05 10:07] LABS: HEMOGLOBIN A1C 6.3 % (4.5-5.6)
[2017-05-05] MEDS: ENOXAPARIN 40 MG/0.4 ML SYR SQ SCH (10:10)
--- NOTE | 2017-05-05 10:13 | SURGERY PROGRESS NOTE ---
DATE: 05/05/2017 Ms. Booth was seen today, 1 day status post a video mediastinoscopy and then a robot-assisted thoracoscopic left lower lobectomy. She looks great. She has no air leak. Her x-ray looks good except for a very small apical pneumo. She has no air leak and has drained very little and has no fluid on her chest x-ray. She is almost off of oxygen. She has her sneakers on and sitting up in a chair after eating breakfast. She is walking in the hallway. This appears to be an early stage lung cancer. I discussed this case with Dr. Chacon. Hopefully, we will send her home tomorrow.
--- NOTE | 2017-05-05 10:24 | Pharmacy Progress Note ---
Glycemic Control Progress Note Date of Service May 05, 2017. Scope Glycemic Pharmacist consulted for glycemic control to write orders per [facility] inpatient glycemic control protocol. Objective Accuchecks BSG (last 24hrs): Test 05/04/17 19:30 05/04/17 20:38 05/05/17 07:45 05/05/17 08:08 Bedside Glucose 181 mg/dl (70-90) 181 mg/dl (70-90) 82 mg/dl (70-90) Random Glucose 81 mg/dl (70-99) HbA1c: Test 05/05/17 07:45 Recent Pertinent Medications The patient is currently receiving: * Basal insulin: Lantus 30 units SQ on 2 pm * Correctional Insulin: Novolog Correction per scale ACHS Goal Range: Low 110 mg/dL - High 140 mg/dL Correction Factor: 15 mg/dL/unit * Prandial insulin: Per carb ratio of 1 unit per 6 grams CHO consumed Risk Factors for Insulin Resistance: * Steroids: Dexamethasone 8mg IV x1 at ~1230 05/04/17 * Recent Surgery: Lung lobectomy 05/04/17 * Diet:T2DM Outpatient Anti-Diabetic Meds * Cinnamon 500mg 2 tab po QAM Assessment & Plan ASSESSMENT: * See progress note from 05/04/17 for more background info, in short: * Pt receiving SQ basal bolus insulin regimen for hyperglycemia secondary to baseline DM (outpatient regimen on hold), recent surgery, and steroids * Patient received 33 units of insulin yesterday (not indicative of full 24 hr needs) * 30 units of basal insulin * 3 units of prandial/correctional insulin * BSGs: 116, 181, 181 * Changes needed to insulin regimen: * AM Fasting BSG = 82 mg/dl. This is in slightly below goal range for patient based on inpatient targets and co-morbidities. Patient is not on basal insulin at home. I suspect she may be adequately managed using bolus insulin only. Hold Lantus unless fasting BSG > 140 mg/dL. * Post-prandial BSGs are near goal range. Continue current CF/CR this morning for tight control since effect of IV steroid remains. Will loosen after lunch. PLAN FOR INPATIENT GLYCEMIC CONTROL: * Basal insulin * no further basal insulin at this time * initiate for fasting BSG > 140 mg/dL * Bolus insulin * NovoLog per scale ACHS or Q6hrs while NPO * Goal Range: Low 110 mg/dL - High 140 mg/dL * Correction Factor: 15 mg/dL/unit - loosen to 20 starting with dinner * Nutritional / Prandial insulin per carb ratio of 1 unit per 6 grams CHO consumed - loosen to 8 starting with dinner * Please note that the plan above was derived based on current level of insulin resistance and hospital stress. These recommendations are appropriate for inpatient admission only. Plan of care upon discharge will need to be reassessed to avoid potential outpatient hypo/hyperglycemia. Thank you.
[2017-05-05] MEDS: ACETAMINOPHEN 325 MG TAB PO SCH ×2 (12:12→18:33)
[2017-05-05] MEDS: OXYCODONE HCL IR 5 MG TAB (IMMEDIATE RELEASE) PO PRN (16:57)
[2017-05-05] MEDS: TRAZODONE HCL 50 MG TAB PO SCH (21:02)
[2017-05-05] MEDS: NORTRIPTYLINE HCL 25 MG CAP PO SCH (21:02)
[2017-05-05] MEDS: PANTOprazole SOD 40 MG TAB PO SCH (21:02)
[2017-05-06] MEDS: ACETAMINOPHEN 325 MG TAB PO SCH ×3 (00:30→11:53)
[2017-05-06] MEDS: OXYCODONE HCL IR 5 MG TAB (IMMEDIATE RELEASE) PO PRN ×2 (00:31→07:25)
[2017-05-06 03:53] VITALS: BP 128/80; PULSE 87; TEMP 37; O2SAT 96
[2017-05-06] MEDS: KETOROLAC TROMETHAMINE 15 MG/ML VIAL IV. SCH ×2 (03:59→11:52)
[2017-05-06] MEDS: LEVOTHYROXINE 75 MCG TAB PO SCH (05:45)
[2017-05-06] MEDS ORDERED: CLC100 PO (07:21)
[2017-05-06] MEDS ORDERED: TRAM-453 PO (07:21)
[2017-05-06] MEDS ORDERED: ACET-1047 PO (07:21)
[2017-05-06] MEDS: PREGABALIN 75 MG CAP PO SCH (07:24)
--- NOTE | 2017-05-06 07:24 | Discharge Instructions ---
Discharge Instructions Date of Service May 06, 2017. Admission Reason for Admission: Left Lower Lung Nodule Discharge Discharge Diagnosis / Problem: Left Lower Lung Nodule Discharge Goals Goal(s): Learn about illness Activity Recommendations Activity Limitations: resume your previous activity 1. Do not drive until cleared o do so by Dr. Vences. 2. Do not drive if taking ultram. 3. You may remove dressings in 3 days and shower thereafter. No tub baths. . Instructions / Follow-Up Instructions / Follow-Up 1. Office appointment with Dr. Vences in 1 week. Office will call you with date and time of appointment. Go to hospital 1 hour before appointment to have a chest x-ray taken. Current Hospital Diet Patient's current hospital diet: Diabetes Type 2 Diet Discharge Diet Recommended Diet: Regular Diet Procedures Procedures Performed: Video Mediastinoscopy with Biopsy; Left Video-Assisted Thoracoscopy with Left Lower Lobe Wedge Resection, Left Lower Lobectomy and Mediastinal Lymphadenectomy DaVinci Pending Studies Studies pending at discharge: no Laboratory Results Hemoglobin A1c Test 05/05/17 07:45 Range/Units Estimated Average Glucose 134 mg/dl Hemoglobin A1c 6.3 H 4.5-5.6 % Lipid Panel Test 02/09/17 12:16 Range/Units Triglycerides Level 129 0-150 mg/dl Cholesterol Level 198 0-200 mg/dl HDL Cholesterol 55 mg/dl Cholesterol/HDL Ratio 3.6 LDL Cholesterol, Calculated 117 mg/dl Medical Emergencies . Who to Call and When: Medical Emergencies: If at any time you feel your situation is an emergency, please call 911 immediately. . Non-Emergent Contact Non-Emergency issues call your: Surgeon Call Non-Emergent contact if: you have a fever, your pain is not controlled, wound has increased drainage . "Provider Documentation" section prepared by Betito Dalton. . VTE Core Measure Inpt VTE Proph given/why not?: Enoxaparin (Lovenox)SQ
[2017-05-06] MEDS: ALLOPURINOL 100 MG TAB PO SCH (07:26)
[2017-05-06] MEDS: DOCUSATE SODIUM 100 MG CAP PO SCH (07:26)
[2017-05-06] MEDS: ENOXAPARIN 40 MG/0.4 ML SYR SQ SCH (07:26)
[2017-05-06 07:30] VITALS: O2SAT 96
--- NOTE | 2017-05-06 07:47 | DIAGNOSTIC IMAGING REPORT ---
SINGLE VIEW CHEST CLINICAL HISTORY: Status post left lower lobe resection. FINDINGS: An AP, portable, upright chest radiograph is compared to study dated 05/05/2017 and correlated with chest CT dated 04/12/2017. The heart is normal for projection. There is atherosclerotic calcification of the thoracic aorta. Emphysema and chronic interstitial thickening are similar to previous. A left-sided chest tube is unchanged in position. There is volume loss in the left lung consistent with left lower lobe resection. Pleural fluid is present both lung bases with bibasilar atelectasis. A small left apical pneumothorax persists. The skeletal structures are osteopenic. The bony thorax is grossly intact. IMPRESSION: 1. Emphysema with postoperative change from left lower lobe resection. 2. A left-sided chest tube is unchanged in position and a small left apical pneumothorax persists. 3. Small pleural effusions with bibasilar atelectasis Electronically signed by: Mikhail Prater M.D. 05/06/2017 7:45 AM Dictated Date/Time: 05/06/2017 7:43 AM
[2017-05-06 07:50] VITALS: BP 102/64; PULSE 91; TEMP 36.3; O2SAT 91
[2017-05-06] MEDS: INSULIN ASPART 100 UNITS/ML 3 ML PEN SC SCH ×2 (08:00→12:00)
--- NOTE | 2017-05-06 08:10 | DIAGNOSTIC IMAGING REPORT ---
CHEST ONE VIEW PORTABLE CLINICAL HISTORY: Chest tube removal COMPARISON STUDY: May 06, 2017 FINDINGS: The left-sided chest tube has been removed. There is an 11 mm left apical pneumothorax. Small pleural effusions are suspected. There are bibasal airspace opacities.[ IMPRESSION: 1. Small bilateral pleural effusions with bibasal airspace opacities likely atelectatic 2. Interval removal of the left-sided chest tube. 11 mm left apical pneumothorax. Electronically signed by: Adi Haro M.D. 05/06/2017 8:09 AM Dictated Date/Time: 05/06/2017 8:08 AM
[2017-05-06 08:29] VITALS: O2SAT 91
[2017-05-06 11:58] VITALS: BP 102/64; PULSE 91; TEMP 36.3; O2SAT 91
--- NOTE | 2017-05-10 11:53 | EDITING REQUIRED CODING QUERY ---
CODING QUERY To promote full compliance with coding requirements relating to patient care, provider participation is requested in all cases of medical biller coder uncertainty. Please assist us with the question(s) below: Coding Question(s): Please clarify below, in your clinical opinion, regarding the apical pneumothorax. ( ) Apical Pneumothorax is a postoperative complication (X ) Apical Pneumothorax is not a postoperative complication Physician's Response(s): Thank you Anu Merchant Principal Diagnosis: "_that condition established after study, to be chiefly responsible for occasioning the admission of the patient to the hospital for care." Co-Existing Principal Diagnosis: "_when two or more diagnoses equally meet the criteria for principal diagnosis as determined by the circumstances of admission, diagnostic work up, and/or therapy provided, and the Alphabetic Index, Tabular List, or another coding guideline does not provide sequencing direction, any one of the diagnoses may be sequenced first." "When the physician has documented what appears to be a current diagnosis in the body of the record, but has not included the diagnosis in the final diagnostic statement, the physician should be asked whether the diagnosis should be added." (Source Coding Clinic 2 QTR90. p3-4)
--- NOTE | 2017-05-12 15:36 | DISCHARGE SUMMARY ---
DISCHARGE DIAGNOSIS: Adenocarcinoma of left lower lobe. HOSPITAL COURSE: This is a very nice 61-year-old patient with a history of cigarette smoking, who was found to have a mass which was enlarging hypermetabolic in the left lower lobe. Dr. Kev Chacon sent her to see me. Unfortunately, it was not in a good place to do a needle biopsy and I felt she was such a good where this patient, we would just go ahead and proceed with a wedge resection with a lobectomy. On 05/04/2017, the patient was admitted and underwent an uncomplicated mediastinoscopy. Her frozen sections, there was no evidence of metastatic disease. We then turned her on right lateral decubitus position and did a robot-assisted thoracoscopic left lower lobectomy without difficulty. She tolerated it very well. She had no air leak. She was watched on the floor. She was discharged home in 48 hours. Her final pathology showed her to be a stage I adenocarcinoma of the lung. She was discharged home on postoperative day #2 after her chest tube had been pulled. I will see her back in the office in next week to go over her pathology.
== END 2017-05-06 13:51 | disposition home or self-care (01) | DRG 164 ==
LOC: C.ACU 09:36 → C.MSW 18:14 → ENRESERV 18:56
PROVIDERS: ADMIT Surgery; ATTEND Surgery
PROC: 07B74ZX Excision of Thorax Lymphatic, Percutaneous Endoscopic Approach, Diagnostic (ICD-10-PCS; principal; 2017-05-04 12:30)
PROC: 8E0W4CZ Robotic Assisted Procedure of Trunk Region, Percutaneous Endoscopic Approach (ICD-10-PCS; principal; 2017-05-04 12:30)
PROC: 0W9B30Z Drainage of Left Pleural Cavity with Drainage Device, Percutaneous Approach (ICD-10-PCS; principal; 2017-05-04 12:30)
PROC: 0BBJ4ZX Excision of Left Lower Lung Lobe, Percutaneous Endoscopic Approach, Diagnostic (ICD-10-PCS; principal; 2017-05-04 12:30)
PROC: 0BTJ4ZZ Resection of Left Lower Lung Lobe, Percutaneous Endoscopic Approach (ICD-10-PCS; principal; 2017-05-04 12:30)
DX: C34.32 Malignant neoplasm of lower lobe, left bronchus or lung (principal); J93.9 Pneumothorax, unspecified; R59.0 Localized enlarged lymph nodes; Z87.891 Personal history of nicotine dependence; J44.9 Chronic obstructive pulmonary disease, unspecified; E11.42 Type 2 diabetes mellitus with diabetic polyneuropathy; I10 Essential (primary) hypertension; F32.9 Major depressive disorder, single episode, unspecified; M10.9 Gout, unspecified; E03.9 Hypothyroidism, unspecified; G47.00 Insomnia, unspecified; G25.81 Restless legs syndrome; K21.9 Gastro-esophageal reflux disease without esophagitis; Z79.899 Other long term (current) drug therapy; Z82.49 Family history of ischemic heart disease and other diseases of the circulatory system; Z83.3 Family history of diabetes mellitus; Z80.3 Family history of malignant neoplasm of breast; Z80.51 Family history of malignant neoplasm of kidney; Z80.1 Family history of malignant neoplasm of trachea, bronchus and lung

== ENCOUNTER → 2017-05-16 | Outpatient (CLI) | payer BC ==
[~2017-05-16] MED LIST changes: +ACET-1047 PO; +CLC100 PO; -LACTATED RINGER'S 1000ML 1,000 ML IV SCH; +TRAM-453 PO
--- NOTE | 2017-05-16 10:35 | DIAGNOSTIC IMAGING REPORT ---
TWO VIEW CHEST CLINICAL HISTORY: Status post left-sided pulmonary resection. FINDINGS: PA and lateral chest radiographs are compared to study dated 05/06/2017 and correlated with chest CT dated 04/12/2017. The cardiomediastinal silhouette is unremarkable. There is atherosclerotic calcification of the thoracic aorta. Emphysema and chronic interstitial thickening are similar to previous. Again seen are postoperative changes and volume loss from left lower lobe resection. Left basilar atelectasis and pleural fluid at the left lung base persist. Fluid tracks to the left apex. No pneumothorax is clearly seen. The skeletal structures are osteopenic. The bony thorax appears intact. Cholecystectomy clips are identified in the right upper quadrant. IMPRESSION: 1. Emphysema with postoperative change from left-sided pulmonary resection. 2. Pleural fluid is seen at the left lung base and tracks to the left apex. No pneumothorax is clearly seen. Electronically signed by: Mikhail Prater M.D. 05/16/2017 10:33 AM Dictated Date/Time: 05/16/2017 10:31 AM
== END | disposition home or self-care (01) ==
LOC: C.RAD1850 10:01
PROVIDERS: ATTEND Surgery
DX: R91.1 Solitary pulmonary nodule (principal)

== ENCOUNTER → 2017-05-24 | Outpatient (CLI) | payer BC ==
[~2017-05-24] MED LIST changes: -TRAM-453 PO
--- NOTE | 2017-05-24 11:04 | DIAGNOSTIC IMAGING REPORT ---
CHEST 2 VIEWS ROUTINE HISTORY: 61 years-old Female C34.90 Carcinoma of [id number] COMPARISON: Chest radiograph 05/16/2017, PET CT 05/02/2017 TECHNIQUE: PA and lateral views of the chest FINDINGS: Cardiac silhouette is again mildly enlarged, unchanged. Atherosclerosis of the aorta. Emphysema with unchanged biapical pleural-parenchymal scarring/pleural thickening postoperative changes are again noted compatible with left-sided pulmonary resection. Unchanged left pleural effusion is noted tracking along the lateral left hemithorax towards the apex. No pneumothorax. Hazy left basilar opacities suggest compressive atelectasis. The bones are grossly intact. Surgical clips of the upper abdomen suggest prior cholecystectomy. IMPRESSION: 1. Stable appearance of left-sided pleural effusion with left basilar opacities suggesting compressive atelectasis. 2. Cardiomegaly. 3. Emphysema. The above report was generated using voice recognition software. It may contain grammatical, syntax or spelling errors. Electronically signed by: Lalito Vines M.D. 05/24/2017 11:02 AM Dictated Date/Time: 05/24/2017 11:00 AM
== END | disposition home or self-care (01) ==
LOC: C.RAD1850 10:46
PROVIDERS: ATTEND Internal Medicine
DX: C34.90 Malignant neoplasm of unspecified part of unspecified bronchus or lung (principal); J90 Pleural effusion, not elsewhere classified; I51.7 Cardiomegaly; J43.9 Emphysema, unspecified

== ENCOUNTER → 2017-05-24 | Outpatient (CLI) | payer BC ==
[2017-05-24 12:15] LABS: BASO % 0.5 %; BASO ABS # 0.06 K/uL (0-0.2); EOS % 2.7 %; HEMATOCRIT 38.6 % (37-47); HEMOGLOBIN 12.6 g/dL (12.0-16.0); IG# 0.03 K/uL (0.00-0.02); LYMPH % 30.9 %; MEAN CELL VOLUME 88.1 fL (80-100); MEAN CORPUSCULAR HEMOGLOBIN 28.8 pg (25-34); MEAN CORPUSCULAR HGB CONC 32.6 g/dl (32-36); MEAN PLATELET VOLUME 10.6 fL (7.4-10.4); MONO % 6.7 %; MONO ABS # 0.74 K/uL (0.11-0.59); NEUT % 58.9 %; NEUT ABS # 6.46 K/uL (1.4-6.5); PLATELET COUNT 302 K/uL (130-400); RED CELL DISTRIBUTION WIDTH CV 14.4 % (11.5-14.5); RED CELL DISTRIBUTION WIDTH SD 46.7 fL (36.4-46.3); WHITE BLOOD COUNT 10.99 K/uL (4.8-10.8)
[2017-05-24 13:02] LABS: ALBUMIN 3.2 gm/dl (3.4-5.0); ALT/SGPT 23 U/L (12-78); AST/SGOT 33 U/L (15-37); BLOOD UREA NITROGEN 16 mg/dl (7-18); CALCIUM 9.2 mg/dl (8.5-10.1); CARBON DIOXIDE 26 mmol/L (21-32); CREATININE 0.78 mg/dl (0.60-1.20); GLUCOSE 94 mg/dl (70-99); POTASSIUM 3.5 mmol/L (3.5-5.1); SODIUM 137 mmol/L (136-145)
[2017-05-24 13:12] LABS: ALKALINE PHOSPHATASE 127 U/L (45-117)
== END | disposition home or self-care (01) ==
LOC: C.LABBFT 09:09
PROVIDERS: ATTEND Internal Medicine
DX: D89.2 Hypergammaglobulinemia, unspecified (principal); E78.00 Pure hypercholesterolemia, unspecified; E03.9 Hypothyroidism, unspecified; E55.9 Vitamin D deficiency, unspecified

== ENCOUNTER → 2017-05-30 | Outpatient (CLI) | payer BC | END | disposition home or self-care (01) | LOC: C.LABBFT 10:48 | PROVIDERS: ATTEND Internal Medicine | DX: R77.1 Abnormality of globulin (principal) ==

== ENCOUNTER → 2017-06-13 | Outpatient (CLI) | payer BC ==
--- NOTE | 2017-06-13 08:50 | DIAGNOSTIC IMAGING REPORT ---
CHEST 2 VIEWS ROUTINE CLINICAL HISTORY: R91.1 Lung [id number] lung nodule. Pleural effusion. COMPARISON STUDY: 05/24/2017 FINDINGS: Unchanging left pleural effusion. Mild stable cardiomegaly. Mild stable emphysematous change. Apical pleural thickening considered chronic and stable. IMPRESSION: Stable left pleural effusion. Mild emphysematous change. No acute process. The above report was generated using voice recognition software. It may contain grammatical, syntax or spelling errors. Electronically signed by: Chance Torres M.D. 06/13/2017 8:48 AM Dictated Date/Time: 06/13/2017 8:48 AM
== END | disposition home or self-care (01) ==
LOC: C.RAD1850 08:20
PROVIDERS: ATTEND Surgery
DX: R91.1 Solitary pulmonary nodule (principal)

== ENCOUNTER 2018-05-31 08:52 | Inpatient (IN) ==
--- NOTE | 2018-05-22 11:04 | Anesthesiology Consultation ---
Date of Service May 22, 2018 Assessment & Plan (1) Encounter for pre-operative examination: Chart Review Chart Review: Acceptable Risk for Surgery and Patient NOT seen in Pre Admission Testing Consults Requested none Additional Notes Scheduled for robotic assisted perigastric, celiac and aortic lymph node biopsy. Pt tolerated lumbar laminectomy with Dr. Valles 01/09/18 without apparent complication and was a grade 1 view with a MAC 3. Order for type and screen placed for DOS. History Surgery Operation Date: 05/31/18 10:50 Proposed Procedures p Robotic Assisted Laparoscopic Lymph Node Biopsy Perigastric Celiac Aortic Area - Glen Vences MD, FACS Height/Weight Height: 5 ft 5 in Weight: 99.337 kg Allergies Allergy/AdvReac Type Severity Reaction Status Date / Time celecoxib Allergy Mild RASH Verified 05/19/18 11:45 silicone Allergy Unknown SKIN MIRANDA Verified 05/19/18 11:45 metoclopramide Allergy FACIAL AND Unverified 05/19/18 11:45 FEET SWELLING, BONE PAIN atorvastatin AdvReac headaches Verified 05/19/18 11:45 Medications Home Medications Medication Instructions Recorded Confirmed Last Taken albuterol sulfate [ProAir HFA] 2 puff INHALATION QID PRN 12/14/17 05/19/18 Unknown allopurinol 100 mg PO QAM 12/14/17 05/19/18 05/19/18 cholecalciferol (vitamin D3) 1 tab PO DAILY 12/14/17 05/19/18 04/18/18 09:00 [Vitamin D3] cinnamon bark [Cinnamon] 1 cap PO QPM 12/14/17 05/19/18 04/18/18 21:00 levothyroxine 88 mcg PO QAM 12/14/17 05/19/18 05/19/18 nortriptyline 100 mg PO HS 12/14/17 05/19/18 04/18/18 21:00 . omeprazole 20 mg PO QAM 12/14/17 05/19/18 05/19/18 pregabalin [Lyrica] 75 mg PO TID 12/14/17 05/19/18 05/19/18 tramadol-acetaminophen 1 - 2 tab PO Q6H PRN 12/14/17 05/19/18 04/18/18 21:00 trazodone 100 mg PO QPM 09/05/19/18 04/18/18 21:00 triamterene-hydrochlorothiazid 1 tab PO QAM 12/14/17 05/19/18 05/19/18 magnesium 400 mg PO HS 04/18/18 05/19/18 04/18/18 21:00 benzonatate [Tessalon Perles] 100 mg PO TID PRN #30 cap 04/24/18 05/19/18 Unknown docusate sodium [Stool Softener] 250 mg PO TID 05/19/18 05/19/18 05/19/18 Past Medical History Medical History Anxiety Asthma Borderline diabetes mellitus Chronic obstructive pulmonary disease never uses inhaler Depression Encounter for pre-operative examination Fatty liver GERD (gastroesophageal reflux disease) Gout Hiatal hernia History of lung cancer S/P LEFT LOWER LOBECTOMY (LANNY) 05/04/2017 Hyperlipidemia Hypertension Hypothyroid Lung cancer Neuropathy Osteoarthritis Past Family History Family History Brother Family history of lung cancer Sister Family history of lung cancer Family history of kidney cancer Family history of skin cancer Family history of breast cancer Family history of uterine cancer Family history of ovarian cancer Past Surgical History Surgical History H/O exploratory laparotomy for abdominal pain, found hiatal hernia History of arthroscopy of right knee History of cataract surgery History of section History of colonoscopy History of esophagogastroduodenoscopy (EGD) History of laminectomy History of lobectomy of lung left lower lobe. [facility] 05/04/17. MAC 3, ETT 7.5, no issues noted in anesthesia record. History of surgery removal of "eccrine" gland History of total abdominal hysterectomy and bilateral salpingo-oophorectomy Hx of cholecystectomy Social History Smoking Status: Former smoker tobacco type: cigarettes Smoking cigarettes per day: QUIT 15 YR AGO, PREVIOUS 1/2-34 PPD X25 YR Do You Dip or Chew Tobacco: No Hx Alcohol Use: No Hx Substance Use: Yes (PAIN MEDICATION NEEDED FOR PAIN) substance use type: prescription drug Testing Electrocardiogram Date: 04/24/18 Findings: + NSR @ (89) and + RBBB; no no change from (QRS duration has increased , inverted T waves have replaced nonspecific T waves in Inferior leads, T wave inversion now evident in Anterior leads, QT has lengthened (QTc 530)) Other Testing Other Testing Chest CT (04/10/18) IMPRESSION: 1. Mild increase in size of several celiac chain lymph nodes since PET/CT of January 02, 2018. 2. Sclerosis of the posterior left ninth rib with mild adjacent pleural/ extrapleural soft tissue thickening. This is nonspecific and may be postsurgical however metastatic disease could appear similar and this should be assessed on subsequent imaging exams. 3. Status post left lower lobectomy. 4. Moderate emphysema. Abdomen/ Pelvic CT (04/10/18) IMPRESSION: 1. Stable slight interval increase in size of the pathologically enlarged celiac axis lymph node likely with few adjacent enlarged celiac axis/ gastrohepatic lymph nodes. No additional sites of disease evident in the abdomen or pelvis. 2. Emphysema. Please see separately dictated CT of the chest.
[~2018-05-31 08:52] MED LIST changes: -ACET-1047 PO; -ALLO100T PO; -CINN500T PO; -CLC100 PO; -DOCU100C PO; -LEVO75TA PO; +LR 15ML/HR IV SCH; -NORT50CA PO; -PRLSR20 PO; -PROB1TAB16 PO; -TRAZ50TA35 PO; -TRIA75TA PO; -[UNRECOGNIZED DRUG - CODE] PO
[2018-05-31] MEDS ORDERED: ROCURONIUM BROMIDE 10 MG/ML 5 ML VIAL ONE ×2 (10:22→13:06)
[2018-05-31] MEDS ORDERED: PROPOFOL IV EMULSION 10 MG/ML 20 ML VIAL IV ONE (10:22)
[2018-05-31] MEDS ORDERED: ONDANSETRON INJ 2 MG/ML 2 ML VIAL ONE (10:22)
[2018-05-31] MEDS ORDERED: LIDOCAINE HCL 2% 2 ML VIAL/AMP(20MG/ML) INFIL ONE (10:22)
[2018-05-31] MEDS ORDERED: MIDAZOLAM HCL 1 MG/ML 2ML VIAL ONE (10:23)
[2018-05-31] MEDS ORDERED: fentaNYL citrate 100 MCG/2 ML VIAL ONE (10:23)
--- NOTE | 2018-05-31 11:26 | History & Physical Bridge Note ---
Date of Service May 31, 2018 History & Physical Bridge Note I have examined the patient, reviewed the History & Physical and in the interval since the performance of the History & Physical I have noted the following changes of clinical significance: no changes noted
[2018-05-31] MEDS ORDERED: ePHEDrine sulfate 50 MG/ML AMP IV PRN (11:32)
[2018-05-31] MEDS ORDERED: ATROPINE SULFATE 0.1 MG/ML 10ML SYR IV PRN (11:32)
[2018-05-31] MEDS ORDERED: fentaNYL citrate 100 MCG/2 ML VIAL IV PRN (11:32)
[2018-05-31] MEDS ORDERED: HYDROmorphone INJ 1 MG/ML SYRINGE IV PRN (11:32)
[2018-05-31] MEDS ORDERED: ONDANSETRON INJ 2 MG/ML 2 ML VIAL IV PRN ×3 (11:32→16:55)
[2018-05-31] MEDS ORDERED: PHENYLEPHRINE 100MCG/ML 5ML SYR ONE (13:06)
[2018-05-31] MEDS ORDERED: KEFZOL SPECIAL PROCEDURE STOCK 1 GM ADDVIAL IV SCH (13:15)
[2018-05-31] MEDS ORDERED: BUPIVACAINE LIPOSOME 1.3% 266 MG/20 ML VIAL ONE (13:19)
[2018-05-31] MEDS ORDERED: SODIUM CHLORIDE 0.9% PF 50 ML VIAL ONE (13:19)
[2018-05-31] MEDS ORDERED: BUPIVACAINE 0.5 % 5 MG/1 ML MPF 30ML VIAL ONE (13:19)
[2018-05-31] MEDS ORDERED: SURGICEL ABSORB HEMOSTAT 2IN X 14IN TOP ONE (14:33)
--- NOTE | 2018-05-31 15:21 | Post Operative Brief Note ---
Immediate Post Op Note v1 Date of Surgery May 31, 2018 Pre & Post Diagnosis Operation Date: 05/31/18 10:50 Pre-Op Diagnosis: Hypermetabolic Lymph Node Post-Op Diagnosis: Hypermetabolic Lymph Node Liver Metastisis Procedure Operation Date: 05/31/18 10:50 Actual Procedures p Robotic Assisted Laparoscopic Lymph Node Biopsy Perigastric Celiac Aortic Area, Liver Biopsy - Glen Vences MD, FACS Surgeon Glen Vences MD, FACS Family Health Nurse Practitioner Luz SANDOVAL Estimated Blood Loss 40 Findings Consistent with Post-Op Diagnosis
--- NOTE | 2018-05-31 16:10 | Anesthesiology Progress Note ---
Date of Service May 31, 2018 Anesthesia Post Procedure Vital Signs Vital Signs: Temp Pulse Pulse Resp BP BP Pulse Ox 05/31/18 15:50 86 26 H 97 05/31/18 15:46 84 23 136/68 97 05/31/18 15:45 86 28 H 98 05/31/18 15:41 87 18 143/71 H 98 05/31/18 15:40 86 21 98 05/31/18 15:38 36.2 C L 92 H 22 143/73 H 99 05/31/18 15:36 89 21 143/73 H 99 05/31/18 15:35 50 H 99 05/31/18 09:31 36.9 C 92 H 20 149/81 H 95 Notes Mental Status: alert / awake / arousable and participated in evaluation Patient Amnestic to Procedure: Yes Nausea / Vomiting: adequately controlled Pain: adequately controlled Airway Patency, RR, SpO2: stable & adequate BP & HR: stable & adequate Hydration State: stable & adequate Anesthetic Complications: no major complications apparent and Pt Satisfied with anesthetic care
[2018-05-31] MEDS ORDERED: D5W AND 1/2NSS 1,000 ML IV SCH (16:30)
[2018-05-31] MEDS ORDERED: ACETAMINOPHEN 325 MG TAB PO PRN (16:55)
[2018-05-31] MEDS ORDERED: MAGNESIUM HYDROXIDE SUSP 30 ML UDC PO PRN (16:55)
[2018-05-31] MEDS ORDERED: ALUMINUM/MAGNESIUM SUSP 30 ML UDC PO PRN (16:55)
[2018-05-31] MEDS ORDERED: ALBUTEROL HFA 8 GM INHALER INH PRN (16:55)
[2018-05-31] MEDS: MoRPHine SULFATE 4 MG/ML 1 ML CARP\\VIAL IV PRN ×3 (17:02→23:47)
[2018-05-31] MEDS ORDERED: ACETAMINOPHEN 1,000 MG/100 ML VIAL IV PRN (17:39)
[2018-05-31 19:17] LABS: INR 1.1 (0.9-1.1); Partial Thromboplastin Ratio 0.9; Partial Thromboplastin Time 24.9 Seconds (21.0-31.0); Prothrombin Time 11.4 Seconds (9.0-12.0)
[2018-05-31 19:20] LABS: Creatinine Clr Calc Pharmacy 87.6 ml/min; Est GFR (African American) 98.5
[2018-05-31] MEDS ORDERED: CINNAMON BARK PO SCH (21:00)
--- NOTE | 2018-05-31 21:37 | Operative Report ---
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 PROCEDURE: 1. Robotic-assisted laparoscopic biopsy of perigastric node. 2. Robot-assisted laparoscopic biopsy of lymph node metastases x2. SURGEON: Glen Vences MD. CHEESE PROCESSOR: LORI Hanson. ANESTHESIA: General anesthesia, endotracheal intubation. INDICATION FOR PROCEDURE AND FINDINGS: Yessica Booth is a very interesting 63-year-old female who was found to have a nonsmall cell lung carcinoma, underwent left lower lobectomy in 04/2017. Upon seeing her in followup, CT scan showed some hilar adenopathy which concerned me a little bit, and it concerned me enough that I ordered a PET scan which showed no hypermetabolic activity in the chest; however, she did have some perigastric and celiac nodules which were enlarged and hypermetabolic. She underwent an endoscopic ultrasound which showed these to be metastatic carcinoma, we could not pinpoint what type. She was presented on our Multidisciplinary Cancer Conference. Consensus was that we needed tissue. I felt that we could offer her a robot-assisted laparoscopic biopsy after I saw the PET scan from 05/08/2018 which showed that she had nodes which were accessible. On 05/31/2018, the patient was brought to the operating room and underwent an uncomplicated robot-assisted laparoscopic surgery. I was surprised to see her liver appeared to be a highly abnormal with apparent cirrhosis. I biopsied a very hard node in the lesser curvature perigastric area and the frozen section came back as hyalinised lymph node with no evidence of metastases. I also saw that she had a lesion on her liver and I biopsied one of the lesions by removing part of it in a piecemeal fashion and giving it to the lab. Dr. Kyle from Pathology stated that this represented a carcinoma, but he did not think he would be able to get special stains such as Genomic and immunohistochemical stains. For this reason, I removed a small peripheral liver nodule and the frozen section that showed this to be obvious carcinoma. We had no bleeding with any of this. She tolerated it well, and was extubated in the room. DETAILS OF PROCEDURE: The patient brought to operating room and laid in supine position. General anesthesia induced and endotracheal intubation was performed with single lumen tube. She was prepped and draped in usual sterile fashion. A camera incision was made in the midline above the umbilicus and then two 8 mm ports were placed in the mid clavicular line anteriorly below the costal margin. Two 5 mm ports were placed laterally on the right and the left side. I then placed a 12 mm occupational therapist assistants's port to the right of the umbilicus. Upon going in, we had seen there was very little in the way of adhesions. The patient was placed in reverse Trendelenburg and then we docked the robot. We had good visualization. The liver looked highly abnormal. There were couple of white raised areas which were quite concerning. It also appeared that she may have cirrhosis. I dissected out the lesser curvature and immediately came upon a large hard node. I took out in its entirety and sent to the lab. I was surprised to hear there was no evidence of metastatic disease in this lymph node. While waiting for this to come back on the frozen section, I did come across a mass in the left lobe of the liver which appeared to be about 2 x 2 cm. I excised portions of this, but I had to use cautery to control the bleeding and I gave Dr. Kyle some fragments which he explained to me, did represent metastatic carcinoma, but he was unable to tell me the origin and we needed more tissue. For this reason, I went back to the liver. There was an area on the periphery. Using cautery scissors, I excised this in its entirety. There was some bleeding controlled with the Aquamantys. Dr. Delmar Mccormick from general surgery did present to the case at my request and upon evaluating things felt that there was no bleeding and there was no real issues with this and he would not need to scrub in. Frozen section of this came back as metastatic carcinoma. We had plenty of tissue. She tolerated it quite well. I removed all of the ports. I used #1 PDS to close the camera port which was 12 mm and 12 mm occupational therapist assistants's port. 4-0 Monocryl was used to close all the incisions in a running subcuticular fashion. It should be noted that we insufflated CO2 15 mmHg into the abdominal wall. She tolerated it quite well. I attest to the content of the Intraoperative Record and any orders documented therein. Any exceptions are noted below. KARYD
[2018-05-31] MEDS: ENOXAPARIN INJ 40 MG/0.4 ML SYR SQ SCH (21:54)
[2018-05-31] MEDS: DOCUSATE SODIUM 100 MG CAP PO SCH (21:54)
[2018-05-31] MEDS: MAGNESIUM OXIDE 400 MG TAB PO SCH (21:54)
[2018-05-31] MEDS: PREGABALIN 75 MG CAP PO SCH (22:33)
[2018-06-01] MEDS: OXYCODONE/ACETAMINOPHEN 5mg/325mg TAB PO PRN ×5 (03:55→22:49)
[2018-06-01] MEDS: LEVOTHYROXINE SODIUM 88 MCG TABLET PO SCH (06:38)
[2018-06-01] MEDS: ALLOPURINOL 100 MG TAB PO SCH (09:16)
[2018-06-01] MEDS: TRIAMTERENE/HCTZ 37.5/25MG TAB PO SCH (09:16)
[2018-06-01] MEDS: DOCUSATE SODIUM 100 MG CAP PO SCH ×3 (09:16→20:21)
[2018-06-01] MEDS: CHOLECALCIFEROL 1,000 UNITS TAB PO SCH (09:16)
[2018-06-01] MEDS: PREGABALIN 75 MG CAP PO SCH ×3 (09:16→20:21)
[2018-06-01] MEDS: PANTOprazole 40 MG TAB PO SCH (09:16)
--- NOTE | 2018-06-01 09:37 | Anesthesiology Progress Note ---
Date of Service June 01, 2018 Anesthesia Post Procedure Vital Signs Vital Signs: Temp Pulse Pulse Pulse Resp BP BP 06/01/18 05:58 97 H 19 06/01/18 03:47 37.1 C 99 H 19 123/78 06/01/18 01:45 36.9 C 96 H 18 129/75 05/31/18 23:45 36.8 C 86 18 148/78 H 05/31/18 21:47 36.4 C L 86 18 131/81 05/31/18 20:46 36.5 C 91 H 17 131/79 05/31/18 19:43 36.7 C 97 H 18 125/75 05/31/18 18:46 36.6 C 96 H 17 138/81 05/31/18 17:42 36.4 C L 91 H 17 146/81 H 05/31/18 17:15 36.3 C L 90 18 149/81 H 05/31/18 16:45 36.4 C L 92 H 18 148/84 H 05/31/18 16:25 95 H 17 146/77 H 05/31/18 16:20 91 H 17 144/77 H 05/31/18 16:15 92 H 15 145/74 H 05/31/18 16:10 36.7 C 90 92 H 16 140/78 140/78 05/31/18 16:05 92 H 15 144/75 H 05/31/18 16:00 89 20 143/73 H 05/31/18 15:56 88 16 138/67 05/31/18 15:55 88 18 05/31/18 15:50 86 26 H 05/31/18 15:46 84 23 136/68 05/31/18 15:45 86 28 H 05/31/18 15:41 87 18 143/71 H 05/31/18 15:40 86 21 05/31/18 15:38 36.2 C L 92 H 22 143/73 H 05/31/18 15:36 89 21 143/73 H 05/31/18 15:35 50 H Pulse Ox 06/01/18 05:58 91 06/01/18 03:47 92 06/01/18 01:45 92 05/31/18 23:45 91 05/31/18 21:47 96 05/31/18 20:46 93 05/31/18 19:43 94 05/31/18 18:46 99 05/31/18 17:42 97 05/31/18 17:15 96 05/31/18 16:45 92 05/31/18 16:25 96 05/31/18 16:20 96 05/31/18 16:15 96 05/31/18 16:10 96 05/31/18 16:05 98 05/31/18 16:00 96 05/31/18 15:56 97 05/31/18 15:55 96 05/31/18 15:50 97 05/31/18 15:46 97 05/31/18 15:45 98 05/31/18 15:41 98 05/31/18 15:40 98 05/31/18 15:38 99 05/31/18 15:36 99 05/31/18 15:35 99 Pain Intensity Medial Abdomen: Pain Intensity: 8 Notes Mental Status: alert / awake / arousable and participated in evaluation Patient Amnestic to Procedure: Yes Nausea / Vomiting: see Notes below Pain: adequately controlled Airway Patency, RR, SpO2: stable & adequate BP & HR: stable & adequate Hydration State: stable & adequate Anesthetic Complications: no major complications apparent and Pt Satisfied with anesthetic care
--- NOTE | 2018-06-01 19:07 | Progress Note ---
DATE: 06/01/2018 Ms. Booth was seen today. Her pain is significant, is requiring parenteral narcotics. The patient also had an inordinate amount of pain after her robotic case last year, but tends to get over this. She is going to require some parenteral narcotics at least for another day or so. We are going to switch her over to an admission. She is able to eat and is able to walk. Needless to say, she is very upset about her diagnosis. We are awaiting for the final. I think we will be able to get her out of the hospital tomorrow.
[2018-06-01] MEDS: MAGNESIUM OXIDE 400 MG TAB PO SCH (20:21)
[2018-06-01] MEDS: ENOXAPARIN INJ 40 MG/0.4 ML SYR SQ SCH (20:21)
[2018-06-01] MEDS: MoRPHine SULFATE 4 MG/ML 1 ML CARP\\VIAL IV PRN (23:41)
[2018-06-02] MEDS: OXYCODONE/ACETAMINOPHEN 5mg/325mg TAB PO PRN ×3 (03:53→11:42)
[2018-06-02] MEDS: LEVOTHYROXINE SODIUM 88 MCG TABLET PO SCH (05:39)
[2018-06-02] MEDS: PREGABALIN 75 MG CAP PO SCH (08:29)
[2018-06-02] MEDS: TRIAMTERENE/HCTZ 37.5/25MG TAB PO SCH (08:29)
[2018-06-02] MEDS: ALLOPURINOL 100 MG TAB PO SCH (08:29)
[2018-06-02] MEDS: CHOLECALCIFEROL 1,000 UNITS TAB PO SCH (08:29)
[2018-06-02] MEDS: PANTOprazole 40 MG TAB PO SCH (08:29)
[2018-06-02] MEDS: DOCUSATE SODIUM 100 MG CAP PO SCH (08:29)
--- NOTE | 2018-06-05 07:59 | Discharge Summary ---
DISCHARGE DIAGNOSES: 1. Apparent metastatic carcinoma. 2. Periaortic nodes and liver metastases. 3. Status post lobectomy for early stage lung cancer. HOSPITAL COURSE: Yessica Booth is a very interesting 63-year-old female who underwent a lobectomy a year ago and on followup was seen to have lymphadenopathy in her celiac area. She underwent an endoscopic ultrasound and was found to have metastatic carcinoma, but we could not identify it, it needed more tissue. On 05/31/2018, I took the patient to the operating room, did a robot-assisted thoracoscopic biopsy of a perigastric node, but also noted the patient had 2 masses in her liver and her liver was markedly cirrhotic. I biopsied one and this had carcinoma too, but Dr. Kyle did not feel we had enough tissue. For this reason, I excised a complete nodule that was about 2 cm in diameter from the edge of the right lobe of the liver. She tolerated this well with negligible bleeding. The following day, she had a great deal of pain. I was not surprised as the patient had a tremendous amount of pain when we did her robotic lobectomy last year. She settled down after a day and I discharged on postop day 2. We admitted her for parenteral narcotic management. The patient was ambulating in the hallway. She was tolerating a regular diet. She looked much better at time of discharge. I will see her back in the office in a week to go over her final pathology. I discussed her pathology in detail with Dr. Viviana Batres from pathology. This mass in her liver has not been completely delineated. It could be pancreatic or primary hepatocellular. Special stains are still pending. It is not from her lung. I will see the patient back in a week.
== END 2018-06-02 13:12 | disposition home or self-care (01) | DRG 421 ==
LOC: ASU 08:52 → 3N 08:52

== ENCOUNTER 2018-08-02 21:11 | Inpatient (IN) ==
[2018-08-02 21:35] LABS: Basophils # (auto) 0.05 K/uL (0-0.2); Basophils % (auto) 0.4 %; Eosinophils # (auto) 0.07 K/uL (0-0.5); Eosinophils % (auto) 0.6 %; Hematocrit (blood only) 36.5 % (37-47); Hemoglobin 12.4 g/dL (12.0-16.0); Immature Granulocytes # (auto) 0.04 K/uL (0.00-0.02); Immature Granulocytes % (auto) 0.3 %; Lymphocytes # (auto) 2.89 K/uL (1.2-3.4); Lymphocytes % (auto) 23.7 %; Mean Corpuscular Volume 81.8 fL (80-100); Mean Platelet Volume 10.1 fL (7.4-10.4); Monocytes # (auto) 0.73 K/uL (0.11-0.59); Neutrophils # (auto) 8.42 K/uL (1.4-6.5); Platelet Count 279 K/uL (130-400); RDW Coefficient of Variation 14.6 % (11.5-14.5); RDW Standard Deviation 43.7 fL (36.4-46.3); Red Blood Count 4.46 M/uL (4.2-5.4)
[2018-08-02] MEDS ORDERED: ONDANSETRON INJ 2 MG/ML 2 ML VIAL IV STA (21:50)
[2018-08-02 21:52] LABS: Creatinine Clr Calc Pharmacy 87.9 ml/min; Est GFR (African American) 93.9; Potassium 3.3 mmol/L (3.5-5.1)
[2018-08-02 21:55] LABS: Albumin Globulin Ratio 0.6 (0.9-2); Bilirubin,Total 0.4 mg/dl (0.2-1); Globulin 5.3 gm/dl (2.5-4.0); Total Protein 8.3 gm/dl (6.4-8.2)
[2018-08-02] MEDS: HYDROmorphone INJ 0.5 MG/0.5 ML SYR IV PRN (22:04)
[2018-08-03] MEDS: HYDROmorphone INJ 0.5 MG/0.5 ML SYR IV PRN ×4 (00:03→21:52)
[2018-08-03] MEDS ORDERED: OPTIRAY 320 125ml IV PRN (00:23)
--- NOTE | 2018-08-03 02:35 | Emergency Department Note ---
Entered by Christel Saldaña acting as a scribe for Kev Feliciano MD ED Provider Note CHIEF COMPLAINT: Abdominal pain HISTORY OF PRESENT ILLNESS: The patient is a 63 year old female who presents to the Emergency Room with complaints of worsening right-sided abdominal pain that began a month ago. She states that the pain began on her left side, and it has been worsening since. The patient notes that she saw Dr. Ruvalcaba five days ago, and she was given pain medications. The patient notes that a CT of the abdomen was done by Dr. Ruvalcaba, and it was unremarkable. She states that these medications did not provide any relief, and the pain she is experiencing today is the same pain for which she saw Dr. Ruvalcaba. The patient complains of vomiting this morning and near-syncope. She complains of constipation, lower extremity swelling, and difficulty taking deep breaths due to the pain. Pt denies LOC, headache, fevers, chills, diap horesis, visual changes, neck pain, chest pain, nausea, back pain, melena, hematochezia, urinary symptoms, numbness, weakness, lymphadenopathy, rash, or other complaints. The patient notes that the patient worsens with deep breaths. She denies using any chemotherapy and radiation currently. REVIEW OF SYSTEMS: See HPI for pertinent positives and negatives. A total of ten systems were reviewed and were otherwise negative. PMHx/PSHx: Lung cancer, liver cancer, left lung lobectomy, depression, anxiety, asthma, C OPD, liver biopsy, cholecystectomy SOCIAL HISTORY: Patient lives at home. PHYSICAL EXAM: GENERAL: Awake, alert, uncomfortable-appearing, in no distress HENT: Normocephalic, atraumatic. Oropharynx unremarkable. EYES: PERRL. Normal conjunctiva. Sclera non-icteric. NECK: Inspection normal. Non-tender. Supple. No nuchal rigidity. FROM. No masses. RESPIRATORY: Clear to auscultation. No wheezes. No rales. Normal respiratory effort. CARDIAC: Normal rate. Normal rhythm. No murmurs. No rubs. Extremities warm and well perfused. Pulses equal. No JVD. GI: Soft, non-distended. RUQ tenderness. No rebound or guarding. No masses. RECTAL: Deferred. MUSCULOSKELETAL: Atraumatic. Chest examination reveals no tenderness. The back is symmetrical on inspection without obvious abnormality. There is no CVA tenderness to palpation. No joint edema. LOWER EXTREMITIES: Calves are equal size bilaterally and non-tender. No edema. No discoloration. NEURO: Normal sensorium. No sensory or motor deficits noted. SKIN: No rash or jaundice noted. EMERGENCY DEPARTMENT COURSE: 2143: Past medical records reviewed. The patient was evaluated in room C07, and a complete history and physical examination were performed. 2318: I reassessed the patient, and she stated that she was feeling better. 0142: I spoke with Dr. Benson, radiology, about the patient's results. He stated that the liver lesion did not look infectious, but it looks like the metastatic process. 0202: I spoke with Dr. Marge Tovar, [facility] hospitalist, about the patient's case. She will further evaluate the patient. MEDICAL DECISION MAKING: Prior records/ancillary studies reviewed. The patient had biopsies performed that revealed metastatic carcinoma. Triage Nursing notes reviewed and agree them. Additional history obtained from family. The patient's history was concerning for abdominal pain. Differential diagnosis: Etiologies such as appendicitis, diverticulitis, PUD, biliary pathology, UTI, pancreatitis, obstruction, mesenteric ischemia, aortic pathology, infections, inflammatory bowel disease, renal colic, as well as others were entertained. Physical examination findings: As above. ER treatment provided: IV Dilaudid x3 IV Zofran Cardiac monitoring On reassessment the patient felt somewhat better. She was still having moderate pain in the right upper quadrant. Diagnostics interpreted by me: ECG: No ischemia. The labs revealed a mild leukocytosis on CBC. Chemistry panel revealed mild hyperglycemia. Troponin negative. LFTs were mildly elevated however these were not significantly changed from prior. Imaging studies: CT PE study and CT scan of the abdomen pelvis were performed due to the patient's symptoms and discomfort. No pulmonary emboli, pneumonia or free air noted. The patient does have an epigastric mass as well as masses in the liver. I did discuss this with radiology from [facility]. No signs of abscess or infection. The patient has significant right upper quadrant tenderness. She has mild leukocytosis. She is received multiple doses of IV narcotics and is still uncomfortable. I did discuss her treating this at home with pain medication and close outpatient follow-up. She is still uncomfortable. The patient did not feel well enough to try treatment at home. I did discuss staying in the hospital for further management. Patient and family were in agreement. Consultation: A consultation was placed with the [facility] hospitalist service. The case was discussed and diagnostics were reviewed. The patient was evaluated in the ER for further treatment. IMPRESSION: RUQ abdominal pain, leukocytosis, nausea, metastatic cancer PLAN: Admitted The scribe's documentation has been prepared under my direction and personally reviewed by me in its entirety. I confirm that the note above accurately reflects all work, treatment, procedures, and medical decision making performed by me. Impression & Plan Abdominal pain, acute, right upper quadrant, Leukocytosis, Nausea, Metastatic cancer Past Med/Surg History Medical History Anxiety Asthma Borderline diabetes mellitus Chronic obstructive pulmonary disease never uses inhaler Depression Encounter for pre-operative examination Fatty liver GERD (gastroesophageal reflux disease) Gout Hiatal hernia History of lung cancer S/P LEFT LOWER LOBECTOMY ([place]) 05/04/2017 Hyperlipidemia Hypertension Hypothyroid Lung cancer Neuropathy [place] feet Osteoarthritis Surgical History H/O exploratory laparotomy for abdominal pain, found hiatal hernia History of arthroscopy of right knee History of cataract surgery History of section History of colonoscopy History of esophagogastroduodenoscopy (EGD) History of laminectomy History of lobectomy of lung left lower lobe. [facility] 05/04/17. MAC 3, ETT 7.5, no issues noted in anesthesia record. History of surgery removal of "eccrine" gland History of total abdominal hysterectomy and bilateral salpingo-oophorectomy Hx of cholecystectomy Family History Brother Family history of lung cancer Sister Family history of lung cancer Family history of kidney cancer Family history of skin cancer Family history of breast cancer Family history of uterine cancer Family history of ovarian cancer Social History Preferred Language: Irish Communication Ability: Effective Visual Impairment: No Limitations Hearing Ability: Normal Beliefs That Will Affect Care: None Current Living Situation: Alone Feels Safe at Home: Yes Smoking Status: Never smoker Tobacco Type: cigarettes Cigarettes Per Day: QUIT 15 YR AGO, PREVIOUS 1/2-34 PPD X25 YR Second Hand Exposure: No Hx Alcohol Use: No Hx Substance Use: Yes (PAIN MEDICATION NEEDED FOR PAIN) substance use type: prescription drug Results & Data Vital Signs Vital Signs - 24 hr 08/02/18 21:18 08/02/18 21:20 08/02/18 21:30 Temperature 37.2 C Temperature Source Oral Sepsis Recent Fever Within 48 Hours No Sepsis Action Taken by Nursing No Action Required Pulse Rate 99 H 97 H 94 H Pulse Rate [Apical] Pulse Rate from SpO2 Sensor 99 H 97 H 94 H Pulse Rhythm Regular Pulse Strength Normal Respiratory Rate 20 21 18 Respiratory Effort / Characteristics Non-Labored Respiratory Depth Normal Respiratory Pattern Regular Blood Pressure 139/73 139/73 136/77 Blood Pressure [Left Arm] Blood Pressure Mean 95 95 96 Blood Pressure Mean [Left Arm] Blood Pressure Position Lying Pulse Oximetry 92 93 93 Oxygen Delivery Method Room Air 08/02/18 22:00 08/02/18 22:30 08/02/18 23:00 Temperature Temperature Source Sepsis Recent Fever Within 48 Hours Sepsis Action Taken by Nursing Pulse Rate 89 87 87 Pulse Rate [Apical] Pulse Rate from SpO2 Sensor 89 88 88 Pulse Rhythm Pulse Strength Respiratory Rate 22 19 19 Respiratory Effort / Characteristics Respiratory Depth Respiratory Pattern Blood Pressure 138/84 134/78 132/77 Blood Pressure [Left Arm] Blood Pressure Mean 102 96 95 Blood Pressure Mean [Left Arm] Blood Pressure Position Pulse Oximetry 94 92 91 Oxygen Delivery Method 08/02/18 23:30 08/03/18 00:00 08/03/18 00:44 Temperature Temperature Source Sepsis Recent Fever Within 48 Hours Sepsis Action Taken by Nursing Pulse Rate 86 87 87 Pulse Rate [Apical] Pulse Rate from SpO2 Sensor 86 87 Pulse Rhythm Pulse Strength Respiratory Rate 17 20 18 Respiratory Effort / Characteristics Respiratory Depth Respiratory Pattern Blood Pressure 133/75 135/77 116/74 Blood Pressure [Left Arm] Blood Pressure Mean 94 96 88 Blood Pressure Mean [Left Arm] Blood Pressure Position Pulse Oximetry 90 95 92 Oxygen Delivery Method 08/03/18 00:45 08/03/18 01:00 08/03/18 01:30 Temperature Temperature Source Sepsis Recent Fever Within 48 Hours Sepsis Action Taken by Nursing Pulse Rate 87 85 85 Pulse Rate [Apical] Pulse Rate from SpO2 Sensor 85 Pulse Rhythm Pulse Strength Respiratory Rate 18 19 18 Respiratory Effort / Characteristics Respiratory Depth Respiratory Pattern Blood Pressure 119/84 117/70 Blood Pressure [Left Arm] Blood Pressure Mean 95 85 Blood Pressure Mean [Left Arm] Blood Pressure Position Pulse Oximetry 96 97 97 Oxygen Delivery Method 08/03/18 02:00 08/03/18 02:01 08/03/18 02:04 Temperature Temperature Source Sepsis Recent Fever Within 48 Hours Sepsis Action Taken by Nursing Pulse Rate 83 85 83 Pulse Rate [Apical] Pulse Rate from SpO2 Sensor 83 Pulse Rhythm Pulse Strength Respiratory Rate 15 15 15 Respiratory Effort / Characteristics Respiratory Depth Respiratory Pattern Blood Pressure 115/70 Blood Pressure [Left Arm] Blood Pressure Mean 85 Blood Pressure Mean [Left Arm] Blood Pressure Position Pulse Oximetry 97 97 97 Oxygen Delivery Method 08/03/18 02:06 Temperature Temperature Source Sepsis Recent Fever Within 48 Hours Sepsis Action Taken by Nursing Pulse Rate 82 Pulse Rate [Apical] 82 Pulse Rate from SpO2 Sensor Pulse Rhythm Pulse Strength Respiratory Rate Respiratory Effort / Characteristics Respiratory Depth Respiratory Pattern Blood Pressure Blood Pressure [Left Arm] 115/70 Blood Pressure Mean Blood Pressure Mean [Left Arm] 85 Blood Pressure Position Pulse Oximetry 97 Oxygen Delivery Method Room Air Home Medications Current Medication List: was personally reviewed by me Laboratory Data Attestation: I reviewed the patient's lab results. Result diagrams: 08/02/18 21:23 08/02/18 21:23 Lab Results 08/02/18 08/02/18 08/02/18 Range/Units 21:23 21:23 21:23 WBC 12.20 H (4.8-10.8) K/uL RBC 4.46 (4.2-5.4) M/uL Hgb 12.4 (12.0-16.0) g/dL Hct 36.5 L (37-47) % MCV 81.8 (80-100) fL MCH 27.8 (25-34) pg MCHC 34.0 (32-36) g/dL RDW Std Deviation 43.7 (36.4-46.3) fL RDW Coeff of Harish 14.6 H (11.5-14.5) % Plt Count 279 (130-400) K/uL MPV 10.1 (7.4-10.4) fL Immature Gran % (Auto) 0.3 % Neut % (Auto) 69.0 % Lymph % (Auto) 23.7 % [place] % (Auto) 6.0 % Eos % (Auto) 0.6 % Baso % (Auto) 0.4 % Immature Gran # (Auto) 0.04 H (0.00-0.02) K/uL Neut # (Auto) 8.42 H (1.4-6.5) K/uL Lymph # (Auto) 2.89 (1.2-3.4) K/uL [place] # (Auto) 0.73 H (0.11-0.59) K/uL Eos # (Auto) 0.07 (0-0.5) K/uL Baso # (Auto) 0.05 (0-0.2) K/uL Sodium 134 L (136-145) mmol/L Potassium 3.3 L (3.5-5.1) mmol/L Chloride 98 (98-107) mmol/L Carbon Dioxide 26 (21-32) mmol/L Anion Gap 10.0 (3-11) BUN 12 (7-18) mg/dl Creatinine 0.77 (0.6-1.2) mg/dl Est Cr Clr Drug Dosing 87.9 ml/min Est GFR ( Amer) 93.9 Est GFR (Non-Af Amer) 81.0 BUN/Creatinine Ratio 16.0 (10-20) Glucose 216 H (70-99) mg/dl Calcium 9.0 (8.5-10.1) mg/dl Total Bilirubin 0.4 (0.2-1) mg/dl AST 38 H (15-37) U/L ALT 25 (12-78) U/L Alkaline Phosphatase 137 H (45-117) U/L Troponin I < 0.015 (0-0.045) ng/ml Total Protein 8.3 H (6.4-8.2) gm/dl Albumin 3.0 L (3.4-5.0) gm/dl Globulin 5.3 H (2.5-4.0) gm/dl Albumin/Globulin Ratio 0.6 L (0.9-2) Lipase 87 (73-393) U/L Administered Medications Hydromorphone HCl (Dilaudid) 0.5 mg IV Q15M PRN PRN Reason: Pain Stop: 08/16/18 21:49 Last Admin: 08/03/18 01:59 Dose: 0.5 mg Documented by: [id number] Admin: 08/03/18 00:03 Dose: 0.5 mg Documented by: [id number] Admin: 08/02/18 22:04 Dose: 0.5 mg Documented by: [id number] Ioversol (Optiray 320 125ml) 120 ml IV ONCE PRN PRN Reason: Interaction Checking Stop: 08/07/18 00:22 Last Admin: 08/03/18 00:23 Dose: 1 ml Documented by: [id number] Discontinued Medications Ondansetron HCl (Zofran) 4 mg IV NOW STA Stop: 08/02/18 21:51 Last Admin: 08/02/18 22:04 Dose: 4 mg Documented by: [id number] Imaging Data Radiologist's Impression: Radiology results as stated below per my review and the radiologist's interpretation: CTA CHEST: No acute findings, no PE Radiologist: Hammad Benson MD Study ready at 00:28 and initial results transmitted at 00:42. CT ABDOMEN & PELVIS With Contrast: 4 cm focus of abnormal epigastric soft tissue in the left upper quadrant, suspicious for neoplasm. Peripherally enhancing liver lesion measuring up to 2 cm near the hilum. Cholecystectomy, non-dilated CBD, no fluid collection. No bowel obstruction or wall thickening. Normal appendix. Radiologist: Hammad Benson MD Study ready at 00:34 and initial results transmitted at 01:07. ECG Data Attestation: I personally reviewed and interpreted this ECG as follows: Indication: abdominal pain Rate (beats per minute): 85 Rhythm: normal sinus Findings: + other (left axis deviation); no PAC, no PVC, no ST depression and no ST elevation Blood Pressure Blood Pressure Findings: Normal blood pressure Blood Pressure Disposition: did not require urgent referral Discharge Plan Visit Data Chief Complaint: Abdominal Pain Stated Complaint: abd pain ED Provider: Kev Feliciano Discharge Problem: Abdominal pain, acute, right upper quadrant, Leukocytosis, Nausea, Metastatic cancer Patient Disposition: Being Evaluated by Hospitalist Forms Stand Alone Forms: Call Back Authorization, [facility] Prescriptions Prescriptions: No Action tramadol-acetaminophen 37.5-325 mg Tablet 1 - 2 tab PO Q6H PRN (Reason: Pain) RF: 0 allopurinol 100 mg Tablet 100 mg PO QAM RF: 0 levothyroxine 88 mcg Tablet 88 mcg PO QAM RF: 0 trazodone 100 mg Tablet 100 mg PO QPM RF: 0 triamterene-hydrochlorothiazid 37.5-25 mg Tablet 1 tab PO QAM RF: 0 omeprazole 20 mg Capsule,Delayed Release(Dr/Ec) 20 mg PO QAM RF: 0 nortriptyline 50 mg Capsule 100 mg PO HS RF: 0 cinnamon bark [Cinnamon] 500 mg Capsule 1 cap PO QPM RF: 0 Lyrica 75 mg Capsule 75 mg PO TID RF: 0 cholecalciferol (vitamin D3) [Vitamin D3] 1,000 unit Tablet 1 tab PO DAILY RF: 0 albuterol sulfate [ProAir HFA] 90 mcg/actuation Hfa Aerosol Inhaler 2 puff INHALATION QID PRN (Reason: Shortness Of Breath) RF: 0 magnesium 200 mg Tablet 400 mg PO HS RF: 0 docusate sodium [Stool Softener] 250 mg Capsule 250 mg PO TID RF: 0 Referrals Referrals: Tawanda Ruvalcaba MD [Primary Care Provider] - Discharge Problem: Leukocytosis Qualifiers: Leukocytosis type: other Qualified Code(s): D72.828 - Other elevated white blood cell count The scribe's documentation has been prepared under my direction and personally reviewed by me in its entirety. I confirm that the note above accurately reflects all work, treatment, procedures, and medical decision making performed by me.
[2018-08-03] MEDS ORDERED: CARBOHYDRATES FOR HYPOGLYCEMIA PO PRN (05:13)
[2018-08-03] MEDS ORDERED: OXYCODONE HCL IR 5 MG TAB (IMMEDIATE RELEASE) PO PRN (05:13)
[2018-08-03] MEDS ORDERED: GLUCOSE 40% GEL 15 GM TUBE PO PRN (05:13)
[2018-08-03] MEDS ORDERED: DEXTROSE 50% 50 ML SYRINGE IV PRN (05:13)
[2018-08-03] MEDS ORDERED: GLUCAGON FOR INJ 1 MG VIAL SQ PRN (05:13)
[2018-08-03] MEDS ORDERED: ONDANSETRON INJ 2 MG/ML 2 ML VIAL IV PRN (05:13)
[2018-08-03] MEDS ORDERED: GLUCOSE 10 TABS/TUBE PO PRN (05:13)
--- NOTE | 2018-08-03 05:40 | History & Physical Report ---
Date of Service August 03, 2018 Assessment & Plan (1) Abdominal pain, acute, right upper quadrant: Uncertain etiology. Labs relatively unremarkable -Pain control, Lidoderm, Toradol, Oxycodone -Zofran PRN -Continue Lyrica, Nortriptyline -Pain management consult (2) Metastatic cancer: Pain control as above Oncology followup to initiate treatment (3) Hypertension: Blood pressure well controlled. -Continue Triamterede/HCTZ -Continue to monitor (4) GERD (gastroesophageal reflux disease): Continue Protonix (5) Gout: Continue Allopurinol (6) Hypothyroidism: Continue Synthroid History of Present Illness Chief Complaint: abdominal pain Primary Care Provider: Ace Ruvalcaba MD 63yo C female with history of lung cancer, HTN/HLP/GERD/Asthma/COPD, active liver cancer presenting with Right sided abdominal pain. Patient reports that pain is severe, 10/10, cramping, present appx 3 weeks. Associated wtih near- syncope and nausea with NB/NB vomiting. Patient was to be seen by pain management, appointment for end of the month. She has been taking Oxycodone 5mg po x 2 tablets daily for the pain with minimal relief. ER Course: Dilaudid, Zofran Allergies Allergy/AdvReac Type Severity Reaction Status Date / Time metoclopramide Allergy Intermediate FACIAL AND Verified 08/03/18 00:11 FEET SWELLING, BONE PAIN celecoxib Allergy Mild RASH Verified 08/03/18 00:11 silicone Allergy Unknown SKIN MIRANDA Verified 08/03/18 00:11 atorvastatin AdvReac Intermediate headaches Verified 08/03/18 00:11 Home Medications Home Medications Medication Instructions Recorded Confirmed Type Lyrica 75 mg PO TID 12/14/17 08/03/18 History albuterol sulfate [ProAir HFA] 2 puff INHALATION QID PRN 12/14/17 08/03/18 History allopurinol 100 mg PO QAM 12/14/17 08/03/18 History cholecalciferol (vitamin D3) 1 tab PO DAILY 12/14/17 08/03/18 History [Vitamin D3] cinnamon bark [Cinnamon] 1 cap PO QPM 12/14/17 08/03/18 History levothyroxine 88 mcg PO QAM 12/14/17 08/03/18 History nortriptyline 100 mg PO HS 12/14/17 08/03/18 History omeprazole 20 mg PO QAM 12/14/17 08/03/18 History tramadol-acetaminophen 1 - 2 tab PO Q6H PRN 12/14/17 08/03/18 History trazodone 100 mg PO QPM 12/14/17 08/03/18 History triamterene-hydrochlorothiazid 1 tab PO QAM 12/14/17 08/03/18 History magnesium 400 mg PO HS 04/18/18 08/03/18 History docusate sodium [Stool Softener] 250 mg PO TID 05/19/18 08/03/18 History Past Med/Surg History Medical History Anxiety Asthma Borderline diabetes mellitus Chronic obstructive pulmonary disease never uses inhaler Depression Encounter for pre-operative examination Fatty liver GERD (gastroesophageal reflux disease) Gout Hiatal hernia History of lung cancer S/P LEFT LOWER LOBECTOMY ([place]) 05/04/2017 Hyperlipidemia Hypertension Hypothyroid Lung cancer Neuropathy [place] feet Osteoarthritis Surgical History H/O exploratory laparotomy for abdominal pain, found hiatal hernia History of arthroscopy of right knee History of cataract surgery History of section History of colonoscopy History of esophagogastroduodenoscopy (EGD) History of laminectomy History of lobectomy of lung left lower lobe. [facility] 05/04/17. MAC 3, ETT 7.5, no issues noted in anesthesia record. History of surgery removal of "eccrine" gland History of total abdominal hysterectomy and bilateral salpingo-oophorectomy Hx of cholecystectomy Family History Brother Family history of lung cancer Sister Family history of lung cancer Family history of kidney cancer Family history of skin cancer Family history of breast cancer Family history of uterine cancer Family history of ovarian cancer Social History Preferred Language: Croatian Communication Ability: Effective Visual Impairment: No Limitations Hearing Ability: Normal Beliefs That Will Affect Care: None Current Living Situation: Alone Feels Safe at Home: Yes Smoking Status: Never smoker Tobacco Type: cigarettes Cigarettes Per Day: QUIT 15 YR AGO, PREVIOUS 1/2-34 PPD X25 YR Second Hand Exposure: No Hx Alcohol Use: No Hx Substance Use: Yes (PAIN MEDICATION NEEDED FOR PAIN) substance use type: prescription drug Review of Systems Review of Systems: All systems reviewed & are unremarkable except as noted in HPI & below + epigastric pain +nausea/vomiting +edema Physical Exam Physical Exam: General: patient resting comfortably, NAD, non-toxic in appearance, AA&O x 4 Skin: warm, dry, intact, no rashes or lesions HEENT: NC/AT, PERRL, EOMI, anicteric sclera, conjunctiva without injection, external ear normal to inspection and nontender, nares patent, moist mucus membranes, dentures in place, no oropharyngeal lesions, neck supple, trachea midline, no LAD, no thyromegaly, no JVD Heart: +S1/S2, regular, no m/r/g Lungs: equal air entry bilaterally, no rales/rhonchi/wheezes Abd: +BS, soft, ND, no masses/organomegaly/ascites, tenderness of right lower abdomen Ext: warm, 2+ pulses in UE/LE bilaterally, no clubbing/cyanosis or edema Neuro: nonfocal, patient AA&O x 4, speech intact, no facial droop, moving all extremities on command with equal strength 5/5 Results & Data Vital Signs (Past 12 Hours) Vital Signs Temp Pulse Pulse Resp BP BP Pulse Ox 08/03/18 04:04 83 18 120/85 98 08/03/18 02:06 82 82 115/70 97 08/03/18 02:04 83 15 115/70 97 08/03/18 02:01 85 15 97 08/03/18 02:00 83 15 97 08/03/18 01:30 85 18 117/70 97 08/03/18 01:00 85 19 119/84 97 08/03/18 00:45 87 18 96 08/03/18 00:44 87 18 116/74 92 08/03/18 00:00 87 20 135/77 95 08/02/18 23:30 86 17 133/75 90 08/02/18 23:00 87 19 132/77 91 08/02/18 22:30 87 19 134/78 92 08/02/18 22:00 89 22 138/84 94 08/02/18 21:30 94 H 18 136/77 93 08/02/18 21:20 37.2 C 97 H 21 139/73 93 08/02/18 21:18 99 H 20 139/73 92 Laboratory Results Lab Results 08/02/18 08/02/18 08/02/18 Range/Units 21:23 21:23 21:23 WBC 12.20 H (4.8-10.8) K/uL RBC 4.46 (4.2-5.4) M/uL Hgb 12.4 (12.0-16.0) g/dL Hct 36.5 L (37-47) % MCV 81.8 (80-100) fL MCH 27.8 (25-34) pg MCHC 34.0 (32-36) g/dL RDW Std Deviation 43.7 (36.4-46.3) fL RDW Coeff of Harish 14.6 H (11.5-14.5) % Plt Count 279 (130-400) K/uL MPV 10.1 (7.4-10.4) fL Immature Gran % (Auto) 0.3 % Neut % (Auto) 69.0 % Lymph % (Auto) 23.7 % [place] % (Auto) 6.0 % Eos % (Auto) 0.6 % Baso % (Auto) 0.4 % Immature Gran # (Auto) 0.04 H (0.00-0.02) K/uL Neut # (Auto) 8.42 H (1.4-6.5) K/uL Lymph # (Auto) 2.89 (1.2-3.4) K/uL [place] # (Auto) 0.73 H (0.11-0.59) K/uL Eos # (Auto) 0.07 (0-0.5) K/uL Baso # (Auto) 0.05 (0-0.2) K/uL Sodium 134 L (136-145) mmol/L Potassium 3.3 L (3.5-5.1) mmol/L Chloride 98 (98-107) mmol/L Carbon Dioxide 26 (21-32) mmol/L Anion Gap 10.0 (3-11) BUN 12 (7-18) mg/dl Creatinine 0.77 (0.6-1.2) mg/dl Est Cr Clr Drug Dosing 87.9 ml/min Est GFR ( Amer) 93.9 Est GFR (Non-Af Amer) 81.0 BUN/Creatinine Ratio 16.0 (10-20) Glucose 216 H (70-99) mg/dl Calcium 9.0 (8.5-10.1) mg/dl Total Bilirubin 0.4 (0.2-1) mg/dl AST 38 H (15-37) U/L ALT 25 (12-78) U/L Alkaline Phosphatase 137 H (45-117) U/L Troponin I < 0.015 (0-0.045) ng/ml Total Protein 8.3 H (6.4-8.2) gm/dl Albumin 3.0 L (3.4-5.0) gm/dl Globulin 5.3 H (2.5-4.0) gm/dl Albumin/Globulin Ratio 0.6 L (0.9-2) Lipase 87 (73-393) U/L Diagnostic Findings CTA - negative CT Abdomen - ?soft tissue mass in LUQ, ?malignancy, +liver masses Code Status & VTE Plan Code Status DNR
[2018-08-03] MEDS ORDERED: ALBUTEROL HFA 8 GM INHALER INH PRN (05:45)
[2018-08-03 06:26] LABS: Magnesium 2.5 mg/dl (1.8-2.4); Phosphorus 5.7 mg/dl (2.5-4.9)
[2018-08-03] MEDS: LEVOTHYROXINE SODIUM 88 MCG TABLET PO SCH (06:38)
[2018-08-03] MEDS: ENOXAPARIN INJ 40 MG/0.4 ML SYR SQ SCH (06:38)
[2018-08-03] MEDS: KETOROLAC TROMETHAMINE 15 MG/ML VIAL IV PRN ×3 (06:38→22:37)
--- NOTE | 2018-08-03 06:52 | CT Scan Report ---
CT abd pelvis oral and IV con CLINICAL HISTORY: ] Quadrant abdominal pain. History of cholecystectomy and liver biopsy. HEPATOCELLU LAR CARCINOMA. COMPARISON STUDY: 07/28/2018 TECHNIQUE: The patient was scanned following administration of dilute oral contrast, and in a dynamic helical fashion during intravenous administration of 120 cc of Optiray 320. A dose lowering techniq ue was utilized adhering to the principles of ALARA. CT DOSE: FINDINGS: Lower chest: There are mild dependent atelectatic changes. There are coronary artery calcifications. Liver: The liver has a cirrhotic morphology. There is a 2 cm ring-enhancing lesion within the right h epatic lobe. A second 13 mm right lobe lesion is also suspected There is a 13 mm hypodense lesion wit hin the lateral segment the left lobe anteriorly. This is adjacent to percutaneous stranding. There i s also a tiny air droplets this level. This may represent postbiopsy change. Gallbladder: Surgically absent Spleen: Normal in size and attenuation. Pancreas: Unremarkable. Adrenal glands: Unremarkable. Kidneys: No solid renal masses are visualized. 2 subcentimeter right renal cysts are delineated. Bowel: There are no transition zones to indicate bowel obstruction. There is chronic diverticulosis. There is no evidence of acute peridiverticular inflammatory change. The appendix appears normal. Peritoneum: There is no intraperitoneal free air or abdominal ascites. Vasculature: The abdominal aorta is normal in course and caliber. Adenopathy: There are enlarged retroperitoneal lymph nodes including a 27 mm celiac axis lymph node m ass. There is also an enlarged lymph node in the gastrohepatic ligament. Pelvic viscera: Uterus is surgically absent Skeletal structures: No destructive osseous lesions are seen. IMPRESSION: 1. No evidence of bowel obstruction. No evidence of free air 2. Interval development of a 2 cm ring-enhancing right lobe hepatic mass. A second 13 mm right lobe l esion is also suspected 3. 13 mm hypodense lesion within the anterior aspect of the lateral segment the left lobe containing a tiny air droplets. This could relate to prior postbiopsy change. 4. Hepatic cirrhosis 5. Retroperitoneal adenopathy including a 3 cm celiac axis kailey mass Electronically signed by: Adi Haro M.D. 08/03/2018 6:50 AM
--- NOTE | 2018-08-03 07:17 | CT Scan Report ---
CT angio chest PE protocol CT DOSE: 1698.57 mGy.cm HISTORY: 63 years-old Female with eval for r chest pain, ?RLL PE. Acute chest pain TECHNIQUE: Multiple CTA images of the chest were obtained after the intravenous administration of 120 ml Optiray 320. Coronal and sagittal MIPS were obtained from the axial data set and were submitted for review. All measurements were obtained according to NASCET criteria. A dose lowering technique w as utilized adhering to the principles of ALARA. COMPARISON: CT abdomen and pelvis of same day, CT the liver 07/28/2018, chest CT 04/10/2018. FINDINGS: CTA: The heart is normal in size without pericardial effusion. Coronary arterial calcifications are noted. There is no thoracic aortic aneurysm or dissection. Moderate mixed plaque formation about the thorac ic aorta. Patency of the imaged great vessels. The pulmonary arterial tree is opacified to level the subsegmental branches and demonstrates no focal filling defects to suggest pulmonary thromboembolic d isease. CT CHEST: No thyroid nodule identified. Mildly prominent mediastinal and hilar lymph nodes are present with lym ph nodes about the right hilum measuring up to 10 mm, unchanged from comparison. There is no pneumoth orax or pleural effusion. Moderate emphysema. Postoperative changes of the right lung apex with prior pulmonary resection about the left lung. Mild dependent subsegmental bibasilar atelectasis. There is a 1.3 x 0.8 cm groundglass opacity of the left lung base, image 23 series 4, previously measuring 1. 2 x 0.6 cm. Central airways are patent. Mild wall thickening about the distal esophagus. Hepatic steatosis. Soft tissues and breast parenchym a appear unremarkable. Bones appear to be intact. No new suspicious bone lesions. IMPRESSION: 1. No evidence of pulmonary thromboembolic disease. 2. Postoperative changes from prior left lower lobectomy. 3. Moderate emphysema. 4. Focal groundglass opacity of the left lung base has slightly increased in size from 04/10/2018 pa uring up to 1.3 cm. Attention at follow-up recommended. The above report was generated using voice recognition software. It may contain grammatical, syntax o r spelling errors. Electronically signed by: Lalito Vines M.D. 08/03/2018 7:16 AM
[2018-08-03] MEDS: INSULIN ASPART 100 UNITS/ML 3 ML PEN SC SCH ×4 (08:57→21:08)
[2018-08-03] MEDS ORDERED: PREGABALIN 75 MG CAP PO SCH (09:00)
[2018-08-03] MEDS: PANTOprazole 40 MG TAB PO SCH (09:01)
[2018-08-03] MEDS: DOCUSATE SODIUM 100 MG CAP PO SCH ×3 (09:01→21:09)
[2018-08-03] MEDS: TRIAMTERENE/HCTZ 37.5/25MG TAB PO SCH (09:01)
[2018-08-03] MEDS: ALLOPURINOL 100 MG TAB PO SCH (09:01)
[2018-08-03] MEDS: LIDOCAINE 5% 1 PATCH TD SCH (09:47)
--- NOTE | 2018-08-03 09:59 | Pain Management Consultation ---
Date of Consultation August 03, 2018 Assessment & Plan (1) Abdominal pain, acute, right upper quadrant: 1. Continue Oxycodone, Lyrica, Nortriptyline, Toradol. 2. Scheduled Baclofen 10mg PO TID was initiated as she does describe a muscle spasm sensation causing the acute pain. 3. Will initiate Hydromorphone 0.5 mg IV x 4 hours PRN breakthrough pain. 4. May consider a Celiac plexus nerve block pending response to medication management. 5. Will continue to follow. History of Present Illness Reason for Consultation: RUQ abdominal pain Attending Physician: Howard Nolan History of Present Illness Mrs. Booth is a 63 year old white female with a previous history of lung cancer and now active liver cancer. Patient has been admitted to the [facility] for pain in the RUQ abdomen. The patient states that the pain has been ongoing for approximately 1 month. She describes a deep aching with in termittent sharp stabbing and spasming pain. The pain is located under the breast/RUQ abdomen area. There are no radicular symptoms. She has been taking Oxycodone with mild pain relief. Patient is also chronically on Lyrica 75mg TID and Nortriptyline 100mg daily for peripheral neuropathy pain. She rates her pain 4/10 at its best and 10/10 at its worst. The pain is aggravated with taking in a deep breath, twisting and bending forwards. She is unable to perform her daily activities due to the pain. She is rarely moving throughout the house since the pain started. Patient denies any associate nausea, vomiting, flank pain, urinary sx. Case discussed with Dr. Elaine Salcido [facility] Combined [facility]: 7-Severe - Pain prevents productive activity. Impossible to tolerate. Pain scale - at its best (0-10): 4 Pain scale - at its worst (0-10): 10 Allergies Allergy/AdvReac Type Severity Reaction Status Date / Time metoclopramide Allergy Intermediate FACIAL AND Verified 08/03/18 00:11 FEET SWELLING, BONE PAIN celecoxib Allergy Mild RASH Verified 08/03/18 00:11 silicone Allergy Unknown SKIN MIRANDA Verified 08/03/18 00:11 atorvastatin AdvReac Intermediate headaches Verified 08/03/18 00:11 Home Medications Home Medications Medication Instructions Recorded Confirmed Type Lyrica 75 mg PO TID 12/14/17 08/03/18 History albuterol sulfate [ProAir HFA] 2 puff INHALATION QID PRN 12/14/17 08/03/18 History allopurinol 100 mg PO QAM 12/14/17 08/03/18 History cholecalciferol (vitamin D3) 1 tab PO DAILY 12/14/17 08/03/18 History [Vitamin D3] cinnamon bark [Cinnamon] 1 cap PO QPM 12/14/17 08/03/18 History levothyroxine 88 mcg PO QAM 12/14/17 08/03/18 History nortriptyline 100 mg PO HS 12/14/17 08/03/18 History omeprazole 20 mg PO QAM 12/14/17 08/03/18 History tramadol-acetaminophen 1 - 2 tab PO Q6H PRN 12/14/17 08/03/18 History trazodone 100 mg PO QPM 12/14/17 08/03/18 History triamterene-hydrochlorothiazid 1 tab PO QAM 12/14/17 08/03/18 History magnesium 400 mg PO HS 04/18/18 08/03/18 History docusate sodium [Stool Softener] 250 mg PO TID 05/19/18 08/03/18 History Pain History Pain Intensity Pain scale - at its best (0-10): 4 Pain scale - at its worst (0-10): 10 Patient History Medical History Anxiety Asthma Borderline diabetes mellitus Chronic obstructive pulmonary disease never uses inhaler Depression Encounter for pre-operative examination Fatty liver GERD (gastroesophageal reflux disease) Gout Hiatal hernia History of lung cancer S/P LEFT LOWER LOBECTOMY ([facility]) 05/04/2017 Hyperlipidemia Hypertension Hypothyroid Lung cancer Neuropathy [place] feet Osteoarthritis Surgical History H/O exploratory laparotomy for abdominal pain, found hiatal hernia History of arthroscopy of right knee History of cataract surgery History of section History of colonoscopy History of esophagogastroduodenoscopy (EGD) History of laminectomy History of lobectomy of lung left lower lobe. [facility] 05/04/17. MAC 3, ETT 7.5, no issues noted in anesthesia record. History of surgery removal of "eccrine" gland History of total abdominal hysterectomy and bilateral salpingo-oophorectomy Hx of cholecystectomy Family History Brother Family history of lung cancer Sister Family history of lung cancer Family history of kidney cancer Family history of skin cancer Family history of breast cancer Family history of uterine cancer Family history of ovarian cancer Social History Preferred Language: Telugu Communication Ability: Effective Visual Impairment: No Limitations Hearing Ability: Normal Sports Book Server Required: No Beliefs That Will Affect Care: None Current Living Situation: Alone Other Information That Helps Us Care for You: No Feels Safe at Home: Yes Safety Concerns: Feels Safe At This Time Smoking Status: Former smoker Tobacco Type: cigarettes Cigarettes Per Day: QUIT 15 YR AGO, PREVIOUS 1/2-34 PPD X25 YR Do You Dip or Chew Tobacco: No Second Hand Exposure: No Tobacco Cessation Education Requested by Patient: No Hx Alcohol Use: No Hx Substance Use: No Physical Exam Physical Exam: GENERAL: 63 year old white female. Speech and cognition is i ntact. Mood and affect is appropriate. In no acute distress. HEAD: Normocephalic; atraumatic. EYES: Pupils are round, equal, and reactive to light; EOM intact. ENT: No external ear discharge or lesions. No rhinorrhea or epistaxis. No mucosal lesions. CHEST: Regular chest respiration and excursion. No intercostal tenderness. No worsening of pain with AP/lateral chest compression testing. ABDOMEN: Active bowel sounds throughout; Mild tenderness along the right upper quadrant without guarding or rebound tenderness. No peritoneal signs. No CVA tenderness bilaterally. BACK: Full ROM. No midline or facet tenderness. No SI joint tenderness. Mild tenderness along the left paravertebral muscle spasm at T10 level. NEURO: CN II-XII grossly intact with no focal deficits noted. SKIN: No lesions, erythema, or rashes noted. Results Diagnostic Review CT Findings: CT abd pelvis oral and IV con CLINICAL HISTORY: ] Quadrant abdominal pain. History of cholecystectomy and liver biopsy. HEPATOCELLULAR CARCINOMA. COMPARISON STUDY: 07/28/2018 TECHNIQUE: The patient was scanned following administration of dilute oral contrast, and in a dynamic helical fashion during intravenous administration of 120 cc of Optiray 320. A dose lowering technique was utilized adhering to the principles of ALARA. CT DOSE: FINDINGS: Lower chest: There are mild dependent atelectatic changes. There are coronary artery calcifications. Liver: The liver has a cirrhotic morphology. There is a 2 cm ring-enhancing lesion within the right hepatic lobe. A second 13 mm right lobe lesion is also suspected There is a 13 mm hypodense lesion within the lateral segment the left lobe anteriorly. This is adjacent to percutaneous stranding. There is also a tiny air droplets this level. This may represent postbiopsy change. Gallbladder: Surgically absent Spleen: Normal in size and attenuation. Pancreas: Unremarkable. Adrenal glands: Unremarkable. Kidneys: No solid renal masses are visualized. 2 subcentimeter right renal cysts are delineated. Bowel: There are no transition zones to indicate bowel obstruction. There is chronic diverticulosis. There is no evidence of acute peridiverticular inflammatory change. The appendix appears normal. Peritoneum: There is no intraperitoneal free air or abdominal ascites. Vasculature: The abdominal aorta is normal in course and caliber. Adenopathy: There are enlarged retroperitoneal lymph nodes including a 27 mm celiac axis lymph node mass. There is also an enlarged lymph node in the gastrohepatic ligament. Pelvic viscera: Uterus is surgically absent Skeletal structures: No destructive osseous lesions are seen. IMPRESSION: 1. No evidence of bowel obstruction. No evidence of free air 2. Interval development of a 2 cm ring-enhancing right lobe hepatic mass. A second 13 mm right lobe lesion is also suspected 3. 13 mm hypodense lesion within the anterior aspect of the lateral segment the left lobe containing a tiny air droplets. This could relate to prior postbiopsy change. 4. Hepatic cirrhosis 5. Retroperitoneal adenopathy including a 3 cm celiac axis kailey mass Electronically signed by: Adi Haro M.D. 08/03/2018 6:50 AM
[2018-08-03] MEDS: BACLOFEN 10 MG TAB PO SCH ×3 (10:19→21:09)
[2018-08-03] MEDS ORDERED: HYDROmorphone INJ 0.5 MG/0.5 ML SYR IV PRN (10:32)
[2018-08-03] MEDS ORDERED: POLYETHYLENE (MIRALAX) 17 GM PACK PO PRN (17:50)
[2018-08-03] MEDS: TRAZODONE HCL 100 MG TAB PO SCH (21:09)
[2018-08-03] MEDS: PREGABALIN 75 MG CAP PO SCH (21:09)
[2018-08-03] MEDS: NORTRIPTYLINE HCL 25 MG CAP PO SCH (21:10)
[2018-08-03] MEDS: MAGNESIUM OXIDE 400 MG TAB PO SCH (21:10)
[2018-08-04] MEDS: LEVOTHYROXINE SODIUM 88 MCG TABLET PO SCH (06:43)
[2018-08-04] MEDS: ENOXAPARIN INJ 40 MG/0.4 ML SYR SQ SCH (06:43)
[2018-08-04] MEDS: HYDROmorphone INJ 0.5 MG/0.5 ML SYR IV PRN (08:18)
[2018-08-04] MEDS: DOCUSATE SODIUM 100 MG CAP PO SCH ×3 (08:19→20:43)
[2018-08-04] MEDS: BACLOFEN 10 MG TAB PO SCH ×3 (08:21→20:43)
[2018-08-04] MEDS: TRIAMTERENE/HCTZ 37.5/25MG TAB PO SCH (08:21)
[2018-08-04] MEDS: PANTOprazole 40 MG TAB PO SCH (08:22)
[2018-08-04] MEDS: ALLOPURINOL 100 MG TAB PO SCH (08:22)
[2018-08-04] MEDS ORDERED: POLYETHYLENE (MIRALAX) 17 GM PACK PO PRN (08:22)
[2018-08-04] MEDS: LIDOCAINE 5% 1 PATCH TD SCH (08:22)
[2018-08-04] MEDS: INSULIN ASPART 100 UNITS/ML 3 ML PEN SC SCH ×4 (08:24→21:04)
[2018-08-04] MEDS: PREGABALIN 75 MG CAP PO SCH ×2 (08:25→20:43)
[2018-08-04 09:32] LABS: Appearance Urine Clear (Clear); Bilirubin Urine Negative (Negative); Blood Urine Negative (Negative); Color Urine Yellow; Glucose Urine UA Negative (Negative); Ketones Urine Negative (Negative); Leukocyte Esterase Urine Negative (Negative); Nitrite Urine Negative (Negative); Protein Urine Negative (Negative); Specific Gravity Urine 1.015 (1.000-1.030); Urobilinogen Urine Negative (Negative)
--- NOTE | 2018-08-04 09:54 | Pain Management Progress Note ---
Date of Service August 04, 2018 Assessment & Plan (1) Abdominal pain, acute, right upper quadrant: * Discontinue oral oxycodone and start oral hydromorphone 2 mg every 3 hours as needed. * Continue IV hydromorphone for breakthrough pain is currently ordered. * Continue remaining, current analgesic regimen. * Diagnostic celiac plexus block discussed with the patient in detail. Potential risks, benefits, diagnostic nature of the procedure discussed with the patient. Patient would like to proceed. Tenably scheduled for a.m. on 08/07/2018 in the main operating room under monitored anesthesia care. Orders written to maintain patient n.p.o. after midnight on Tuesday and PT/INR and PTT ordered for Tuesday a.m. Subjective Abi Booth was seen on rounds today for follow-up. She continues to experience right upper quadrant pain spontaneously and with any minimal activity such as deep breathing, coughing, or minimal ambulation. She reports very minimal efficacy with oral analgesics but reports that the IV analgesics you provide pain relief for approximately 2-3 hour duration after which symptoms recur. She reports no significant change with the addition of oral baclofen and adjustment of other anti-neuropathic medications with regard to the intensity of her pain. She rates the pain is severe and incapacitating. She also reports nausea and dyspepsia this morning. Pain Assessment Pain Assessment Full Body Front + Back: 1. Deep, achy, right upper quadrant pain [facility] Combined Pain Scale: 8-Debilitating - Impairs activity. Can't maintain a conversation. Physical Exam Constitutional: + acute distress and + ill appearing Gastrointestinal (Abdomen): Inspection/Auscultation: abdomen normal to inspection and normal bowel sounds Percussion/Palpation: + abdomen tender (Right upper quadrant) Skin: no rashes, no lesions and no ecchymosis Psychiatric: A+Ox3, euthymic affect
[2018-08-04] MEDS: KETOROLAC TROMETHAMINE 15 MG/ML VIAL IV PRN (12:31)
[2018-08-04] MEDS: HYDROmorphone HCL 2 MG TAB PO PRN ×2 (17:41→23:24)
[2018-08-04] MEDS: NORTRIPTYLINE HCL 25 MG CAP PO SCH (20:42)
[2018-08-04] MEDS: MAGNESIUM OXIDE 400 MG TAB PO SCH (20:43)
[2018-08-04] MEDS: TRAZODONE HCL 100 MG TAB PO SCH (20:45)
--- NOTE | 2018-08-04 23:17 | Hospitalist Progress Note ---
Date of Service August 04, 2018 Assessment & Plan (1) Abdominal pain, acute, right upper quadrant: Uncertain etiology. Labs relatively unremarkable -Pain control managed by pain medicine. -Appreciate recommendations -will have nerve block done on tuesday Will hold lovenox after tuesday's dose. -Zofran PRN -Continue Lyrica, Nortriptyline -Pain management consult Pain appears to be from the cancer (2) Metastatic cancer: Pain control as above Oncology followup to initiate treatment (3) Hypertension: Blood pressure well controlled. -Continue Triamterede/HCTZ -Continue to monitor (4) GERD (gastroesophageal reflux disease): Continue Protonix (5) Gout: Continue Allopurinol (6) Hypothyroidism: Continue Synthroid Spent 25 minutes in management of patient. Candy Juan continues to have abdominal pain today despite having pain medicine. Patient reports she is also constipated and has not had abowel movement as of yet. Patient denies any fever chills, nausea, vomiting. Review of Systems Review of Systems: All systems reviewed & are unremarkable except as noted in HPI & below Physical Exam Physical Exam: General: patient resting comfortably, NAD, non-toxic in appearance, AA&O x 4 Skin: warm, dry, intact, no rashes or lesions HEENT: NC/AT, PERRL, EOMI, anicteric sclera, conjunctiva without injection, external ear normal to inspection and nontender, nares patent, moist mucus membranes, dentures in place, no oropharyngeal lesions, neck supple, trachea midline, no LAD, no thyromegaly, no JVD Heart: +S1/S2, regular, no m/r/g Lungs: equal air entry bilaterally, no rales/rhonchi/wheezes Abd: +BS, soft, ND, no masses/organomegaly/ascites, tenderness of right lower abdomen Ext: warm, 2+ pulses in UE/LE bilaterally, no clubbing/cyanosis or edema Neuro: nonfocal, patient AA&O x 4, speech intact, no facial droop, moving all extremities on command with equal strength 5/5 Results & Data Vital Signs (Past 12 Hours) Vital Signs Temp Pulse Resp BP Pulse Ox 08/04/18 15:26 36.8 C 79 21 120/75 92
[2018-08-05] MEDS: ENOXAPARIN INJ 40 MG/0.4 ML SYR SQ SCH (05:26)
[2018-08-05] MEDS: LEVOTHYROXINE SODIUM 88 MCG TABLET PO SCH (06:21)
[2018-08-05] MEDS: HYDROmorphone HCL 2 MG TAB PO PRN ×3 (06:22→21:38)
[2018-08-05 06:36] LABS: Appearance Urine Clear (Clear); Bilirubin Urine Negative (Negative); Blood Urine Negative (Negative); Color Urine Yellow; Glucose Urine UA Negative (Negative); Ketones Urine Negative (Negative); Leukocyte Esterase Urine Negative (Negative); Nitrite Urine Negative (Negative); Protein Urine Negative (Negative); Specific Gravity Urine 1.015 (1.000-1.030); Urobilinogen Urine Negative (Negative); pH Urine 7.5 (4.5-7.5)
[2018-08-05 06:47] LABS: Basophils # (auto) 0.05 K/uL (0-0.2); Basophils % (auto) 0.5 %; Eosinophils # (auto) 0.09 K/uL (0-0.5); Eosinophils % (auto) 0.9 %; Hematocrit (blood only) 34.5 % (37-47); Hemoglobin 11.2 g/dL (12.0-16.0); Immature Granulocytes # (auto) 0.02 K/uL (0.00-0.02); Immature Granulocytes % (auto) 0.2 %; Lymphocytes # (auto) 3.02 K/uL (1.2-3.4); Lymphocytes % (auto) 31.8 %; Mean Corpuscular Hgb Conc 32.5 g/dL (32-36); Mean Corpuscular Volume 83.3 fL (80-100); Mean Platelet Volume 10.3 fL (7.4-10.4); Monocytes # (auto) 0.57 K/uL (0.11-0.59); Neutrophils # (auto) 5.74 K/uL (1.4-6.5); Neutrophils % (auto) 60.6 %; Platelet Count 257 K/uL (130-400); RDW Coefficient of Variation 14.5 % (11.5-14.5); RDW Standard Deviation 44.1 fL (36.4-46.3); Red Blood Count 4.14 M/uL (4.2-5.4); White Blood Count 9.49 K/uL (4.8-10.8)
[2018-08-05 07:27] LABS: Albumin Level 2.5 gm/dl (3.4-5.0); BUN Creatinine Ratio 19.4 (10-20); Bilirubin,Total 0.3 mg/dl (0.2-1); Calcium 8.7 mg/dl (8.5-10.1); Creatinine Clr Calc Pharmacy 93.4 ml/min; Est GFR (African American) 101.9; Est GFR (Non-African American) 87.9; Potassium 3.6 mmol/L (3.5-5.1); Total Protein 7.2 gm/dl (6.4-8.2)
[2018-08-05] MEDS: LACTULOSE SYRUP 30 GM/45 ML UDP PO SCH (09:24)
[2018-08-05] MEDS: DOCUSATE SODIUM 100 MG CAP PO SCH ×3 (09:24→21:36)
[2018-08-05] MEDS: LIDOCAINE 5% 1 PATCH TD SCH (09:25)
[2018-08-05] MEDS: ALLOPURINOL 100 MG TAB PO SCH (09:27)
[2018-08-05] MEDS: PANTOprazole 40 MG TAB PO SCH (09:27)
[2018-08-05] MEDS: BACLOFEN 10 MG TAB PO SCH ×3 (09:27→21:38)
[2018-08-05] MEDS: TRIAMTERENE/HCTZ 37.5/25MG TAB PO SCH (09:28)
[2018-08-05] MEDS: PREGABALIN 75 MG CAP PO SCH ×2 (09:31→21:37)
[2018-08-05] MEDS: INSULIN ASPART 100 UNITS/ML 3 ML PEN SC SCH ×4 (09:34→21:43)
[2018-08-05] MEDS: KETOROLAC TROMETHAMINE 15 MG/ML VIAL IV PRN (13:10)
[2018-08-05] MEDS: TRAZODONE HCL 100 MG TAB PO SCH (21:37)
[2018-08-05] MEDS: MAGNESIUM OXIDE 400 MG TAB PO SCH (21:38)
[2018-08-05] MEDS: NORTRIPTYLINE HCL 25 MG CAP PO SCH (21:39)
--- NOTE | 2018-08-05 22:31 | Hospitalist Progress Note ---
Date of Service August 05, 2018 Assessment & Plan (1) Abdominal pain, acute, right upper quadrant: Uncertain etiology. Labs relatively unremarkable -Pain control managed by pain medicine. -Appreciate recommendations -will have nerve block done on tuesday Will hold lovenox after tuesday's dose. -Zofran PRN -Continue Lyrica, Nortriptyline -Pain management consult Pain appears to be from the cancer. Constipation which appears to be opiate induced is also improved. (2) Metastatic cancer: Pain control as above Oncology followup to initiate treatment (3) Hypertension: Blood pressure well controlled. -Continue Triamterede/HCTZ -Continue to monitor (4) GERD (gastroesophageal reflux disease): Continue Protonix (5) Gout: Continue Allopurinol (6) Hypothyroidism: Continue Synthroid Spent 25 minutes in management of patient. Candy Juan continues to have abdominal pain today despite having pain medicine. Patient reports she is also constipated and has not had abowel movement as of yet. Patient denies any fever chills, nausea, vomiting. Review of Systems Review of Systems: All systems reviewed & are unremarkable except as noted in HPI & below Physical Exam Physical Exam: General: patient resting comfortably, NAD, non-toxic in appearance, AA&O x 4 Skin: warm, dry, intact, no rashes or lesions HEENT: NC/AT, PERRL, EOMI, anicteric sclera, conjunctiva without injection, external ear normal to inspection and nontender, nares patent, moist mucus membranes, dentures in place, no oropharyngeal lesions, neck supple, trachea midline, no LAD, no thyromegaly, no JVD Heart: +S1/S2, regular, no m/r/g Lungs: equal air entry bilaterally, no rales/rhonchi/wheezes Abd: +BS, soft, ND, no masses/organomegaly/ascites, tenderness of right lower abdomen Ext: warm, 2+ pulses in UE/LE bilaterally, no clubbing/cyanosis or edema Neuro: nonfocal, patient AA&O x 4, speech intact, no facial droop, moving all extremities on command with equal strength 5/5 Results & Data Vital Signs (Past 12 Hours) Vital Signs Temp Pulse Resp BP Pulse Ox 08/05/18 15:00 36.6 C 86 20 114/69 94
--- NOTE | 2018-08-06 00:44 | Progress Note ---
Date of Service August 06, 2018 Received a page earlier this evening from the patient's nurse that the patient was complaining of pain behind her right knee. Brief record review notes patient was admitted for right upper quadrant abdominal pain. She has a history of metastatic lung adenocarcinoma. Does not appear she is has history of blood clots. Saw patient at bedside. She says that it has been sore for much of the day. She also thinks that both of her legs are little swollen but that her right leg has been more swollen throughout today. She denies any distal sensation loss or feeling of generalized weakness. Exam: Patient is awake, alert, appears overall comfortable. Her bilateral legs do not seem overtly swollen. Distal sensation is intact and motor is grossly intact throughout. Plan: - Ordered a right lower extremity ultrasound to evaluate for DVT. This was read by the overnight radiology service as negative. - Will defer further evaluation to day team. Lalito Lanza, PGY2 Overnight call Results & Data Vital Signs (Past 12 Hours) Vital Signs Temp Pulse Resp BP Pulse Ox 08/05/18 23:12 36.9 C 82 20 126/71 92 08/05/18 15:00 36.6 C 86 20 114/69 94
--- NOTE | 2018-08-06 06:00 | Ultrasound Report ---
US venous doppler LE RT CLINICAL HISTORY: Right leg pain, leg swelling, cancer hx; COMPARISON STUDY: No previous studies for comparison. FINDINGS: Real-time and color flow Doppler imaging were performed. Flow was seen within the femoral, popliteal and calf veins with no intraluminal thrombus demonstrated. The saphenous vein is patent. IMPRESSION: No evidence of right lower extremity DVT. Electronically signed by: Adi Haro M.D. 08/06/2018 5:58 AM
[2018-08-06] MEDS: LEVOTHYROXINE SODIUM 88 MCG TABLET PO SCH (06:13)
[2018-08-06 07:26] LABS: INR 1.1 (0.9-1.1); Prothrombin Time 11.4 Seconds (9.0-12.0)
[2018-08-06] MEDS: INSULIN ASPART 100 UNITS/ML 3 ML PEN SC SCH ×4 (08:51→21:26)
[2018-08-06] MEDS: HYDROmorphone HCL 2 MG TAB PO PRN ×2 (09:09→14:48)
[2018-08-06] MEDS: DOCUSATE SODIUM 100 MG CAP PO SCH ×3 (09:12→21:23)
[2018-08-06] MEDS: LACTULOSE SYRUP 30 GM/45 ML UDP PO SCH (09:12)
[2018-08-06] MEDS: BACLOFEN 10 MG TAB PO SCH ×3 (09:14→21:24)
[2018-08-06] MEDS: LIDOCAINE 5% 1 PATCH TD SCH (09:14)
[2018-08-06] MEDS: TRIAMTERENE/HCTZ 37.5/25MG TAB PO SCH (09:16)
[2018-08-06] MEDS: ALLOPURINOL 100 MG TAB PO SCH (09:17)
[2018-08-06] MEDS: PANTOprazole 40 MG TAB PO SCH (09:17)
[2018-08-06] MEDS: PREGABALIN 75 MG CAP PO SCH ×2 (09:24→21:22)
[2018-08-06] MEDS: KETOROLAC TROMETHAMINE 15 MG/ML VIAL IV PRN (16:19)
[2018-08-06] MEDS: NORTRIPTYLINE HCL 25 MG CAP PO SCH (21:23)
[2018-08-06] MEDS: TRAZODONE HCL 100 MG TAB PO SCH (21:23)
[2018-08-06] MEDS: MAGNESIUM OXIDE 400 MG TAB PO SCH (21:24)
--- NOTE | 2018-08-06 23:08 | Hospitalist Progress Note ---
Date of Service August 06, 2018 Assessment & Plan (1) Abdominal pain, acute, right upper quadrant: Uncertain etiology. Labs relatively unremarkable -Pain control managed by pain medicine. -Appreciate recommendations -will have nerve block done on tuesday Will hold lovenox -Zofran PRN -Continue Lyrica, Nortriptyline -Pain management consult Pain appears to be from the cancer. Constipation which appears to be opiate induced is also improved after lactulose. Lactulose will not be ordered going forawrd unless atient becomes constipated again. (2) Metastatic cancer: Pain control as above Oncology followup to initiate treatment (3) Hypertension: Blood pressure well controlled. -Continue Triamterede/HCTZ -Continue to monitor (4) GERD (gastroesophageal reflux disease): Continue Protonix (5) Gout: Continue Allopurinol (6) Hypothyroidism: Continue Synthroid Spent 25 minutes in management of patient. Dispo: Getting diagnostic celiac plexus block procedure on Tuesday Subjective Patient reports that she continues to have pain in her right upper quadrant and her id lumbar back. She reports that she also had 2 stools today. She denies any new symptoms. Oernight she had some right mid knee ain that radiated to the medial calf. Today though she does not have any pain. Review of Systems Review of Systems: All systems reviewed & are unremarkable except as noted in HPI & below Physical Exam Physical Exam: General: patient resting comfortably, NAD, non-toxic in appearance, AA&O x 4 Skin: warm, dry, intact, no rashes or lesions HEENT: NC/AT, PERRL, EOMI, anicteric sclera, conjunctiva without injection, external ear normal to inspection and nontender, nares patent, moist mucus membranes, dentures in place, no oropharyngeal lesions, neck supple, trachea midline, no LAD, no thyromegaly, no JVD Heart: +S1/S2, regular, no m/r/g Lungs: equal air entry bilaterally, no rales/rhonchi/wheezes Abd: +BS, soft, ND, no masses/organomegaly/ascites, tenderness of right lower abdomen Ext: warm, 2+ pulses in UE/LE bilaterally, no clubbing/cyanosis or edema Neuro: nonfocal, patient AA&O x 4, speech intact, no facial droop, moving all extremities on command with equal strength 5/5 Results & Data Vital Signs (Past 12 Hours) Vital Signs Temp Pulse Resp BP BP Pulse Ox 08/06/18 19:27 36.7 C 75 18 119/73 94 08/06/18 15:16 37.0 C 90 18 114/74 96
[2018-08-07] MEDS: KETOROLAC TROMETHAMINE 15 MG/ML VIAL IV PRN (05:47)
[2018-08-07] MEDS: LEVOTHYROXINE SODIUM 88 MCG TABLET PO SCH (05:55)
[2018-08-07] MEDS ORDERED: IOPAMIDOL INJ 61% 15 ML VIAL ONE (07:01)
[2018-08-07] MEDS ORDERED: EPINEPHrine INJ 1 MG/ML AMP ONE (07:02)
[2018-08-07] MEDS ORDERED: LIDOCAINE HCL 1% 20 ML VIAL ONE (07:02)
[2018-08-07] MEDS ORDERED: DEXAMETHASONE **PF** INJ 10 MG/ML VIAL ONE (07:02)
[2018-08-07] MEDS ORDERED: LIDOCAINE HCL 2% (LOCAL) INJ 50 ML VIAL ONE (07:03)
[2018-08-07] MEDS ORDERED: TRIAMCINOLONE ACET 40 MG/ML VIAL ONE (07:03)
[2018-08-07] MEDS ORDERED: MIDAZOLAM HCL 1 MG/ML 2ML VIAL ONE (07:13)
[2018-08-07] MEDS ORDERED: fentaNYL citrate 100 MCG/2 ML VIAL ONE (07:13)
[2018-08-07] MEDS ORDERED: PROPOFOL IV EMULSION 10 MG/ML 20 ML VIAL IV ONE (07:13)
[2018-08-07] MEDS ORDERED: ONDANSETRON INJ 2 MG/ML 2 ML VIAL ONE (07:13)
[2018-08-07] MEDS ORDERED: LIDOCAINE HCL 2% 2 ML VIAL/AMP(20MG/ML) INFIL ONE (07:13)
[2018-08-07] MEDS ORDERED: DexMEDEtomidine HCL IV 100 MCG/ML VIAL ONE (07:17)
--- NOTE | 2018-08-07 07:32 | Anesthesiology Consultation ---
Date of Service August 07, 2018 Assessment & Plan (1) Encounter for pre-operative examination: Chart Review Chart Review: Acceptable Risk for Surgery Consults Requested none ASA ASA3 Proposed Anesthesia Anesthesia Type: MAC Risk / Benefits Reviewed With: PT / POA / Parent / Guardian, Accepts Plan and Informed Consent Obtained History Surgery Operation Date: 08/07/18 08:00 Proposed Procedures p Diagnostic Celiac Plexus Block - Elaine Salcido, Height/Weight Height: 5 ft 6 in Weight: 100.3 kg Allergies Allergy/AdvReac Type Severity Reaction Status Date / Time metoclopramide Allergy Intermediate FACIAL AND Verified 08/03/18 00:11 FEET SWELLING, BONE PAIN celecoxib Allergy Mild RASH Verified 08/03/18 00:11 silicone Allergy Unknown SKIN MIRANDA Verified 08/03/18 00:11 atorvastatin AdvReac Intermediate headaches Verified 08/03/18 00:11 Medications Home Medications Medication Instructions Recorded Confirmed Last Taken Lyrica 75 mg PO TID 12/14/17 08/03/18 05/30/18 21:00 albuterol sulfate [ProAir HFA] 2 puff INHALATION QID PRN 12/14/17 08/03/18 Unknown allopurinol 100 mg PO QAM 12/14/17 08/03/18 05/30/18 08:00 cholecalciferol (vitamin D3) 1 tab PO DAILY 12/14/17 08/03/18 05/30/18 08:00 [Vitamin D3] cinnamon bark [Cinnamon] 1 cap PO QPM 12/14/17 08/03/18 04/18/18 21:00 levothyroxine 88 mcg PO QAM 12/14/17 08/03/18 05/31/18 07:30 nortriptyline 100 mg PO HS 12/14/17 08/03/18 05/30/18 21:00 omeprazole 20 mg PO QAM 12/14/17 08/03/18 05/30/18 07:00 tramadol-acetaminophen 1 - 2 tab PO Q6H PRN 12/14/17 08/03/18 05/30/18 21:00 trazodone 100 mg PO QPM 12/14/17 08/03/18 05/30/18 21:00 triamterene-hydrochlorothiazid 1 tab PO QAM 12/14/17 08/03/18 05/30/18 08:00 magnesium 400 mg PO HS 04/18/18 08/03/18 05/24/18 21:00 docusate sodium [Stool Softener] 250 mg PO TID 05/19/18 08/03/18 05/30/18 21:00 Active Medications Generic Name Dose Route Start Last Admin Trade Name Freq PRN Reason Stop Dose Admin Allopurinol 100 mg 08/03/18 09:00 08/06/18 09:17 Zyloprim PO 09/02/18 08:59 100 mg QAM AUREA Administration Baclofen 10 mg 08/03/18 09:45 08/06/18 21:24 Lioresal PO 09/02/18 09:44 10 mg TID AUREA Administration Docusate Sodium 200 mg 08/03/18 09:00 08/06/18 21:23 Colace PO 09/02/18 08:59 200 mg TID AUREA Administration Enoxaparin Sodium 40 mg 08/03/18 05:13 08/05/18 05:26 Lovenox SQ 09/02/18 05:12 Not Given Q24H AUREA Hydromorphone HCl 0.5 mg 08/03/18 21:30 08/04/18 08:18 Dilaudid IV 08/17/18 21:29 0.5 mg Q3HWA PRN Administration Pain Hydromorphone HCl 2 mg 08/04/18 10:11 08/06/18 14:48 Dilaudid PO 08/18/18 10:10 2 mg Q4RWA PRN Administration Pain Insulin Aspart 0 units 08/03/18 07:30 08/06/18 21:26 Novolog Flexpen SC 09/02/18 07:29 Not Given ACHS [facility] Ketorolac Tromethamine 15 mg 08/03/18 05:13 08/07/18 05:47 Toradol IV 08/08/18 05:12 15 mg Q6H PRN Administration Pain Levothyroxine Sodium 88 mcg 08/03/18 06:30 08/07/18 05:55 Synthroid PO 09/02/18 06:29 88 mcg DAILYBB AUREA Administration Lidocaine 1 patch 08/03/18 09:00 08/06/18 09:14 Lidoderm 5% TD 09/02/18 08:59 1 patch QAM AUREA Administration Magnesium Oxide 400 mg 08/03/18 21:00 08/06/18 21:24 Mag-Ox PO 09/02/18 20:59 400 mg HS AUREA Administration Miscellaneous 1 ea 08/03/18 21:00 08/06/18 21:24 Remove Lidoderm Patch N/A 09/02/18 20:59 1 ea DAILY@2100 AUREA Administration Nortriptyline HCl 100 mg 08/03/18 21:00 08/06/18 21:23 Pamelor PO 09/02/18 20:59 100 mg HS AUREA Administration Pantoprazole Sodium 40 mg 08/03/18 09:00 08/06/18 09:17 Protonix PO 09/02/18 08:59 40 mg DAILY AUREA Administration Polyethylene Glycol 17 gm 08/03/18 17:50 08/04/18 08:37 Miralax Powder Packet PO 09/02/18 17:49 17 gm DAILY PRN Administration Constipation Pregabalin 150 mg 08/03/18 21:00 08/06/18 21:22 Lyrica PO 09/02/18 20:59 150 mg BID AUREA Administration Trazodone HCl 100 mg 08/03/18 21:00 08/06/18 21:23 Desyrel PO 09/02/18 20:59 100 mg QPM AUREA Administration Triamterene/HCTZ 1 tab 08/03/18 09:00 08/06/18 09:16 Maxzide 37.5/25mg PO 09/02/18 08:59 1 tab QAM AUREA Administration NPO Date Last Intake of Fluids: 08/06/18 Time Last Intake of Fluids: 21:30 Last Intake of Fluids Comment: x sips w/ po meds Date Last Intake of Solids: 08/06/18 Time Last Intake of Solids: 18:00 Past Medical History Medical History Anxiety Asthma Borderline diabetes mellitus Chronic obstructive pulmonary disease never uses inhaler Depression Encounter for pre-operative examination Fatty liver GERD (gastroesophageal reflux disease) Gout Hiatal hernia History of lung cancer S/P LEFT LOWER LOBECTOMY (LANNY) 05/04/2017 Hyperlipidemia Hypertension Hypothyroid Lung cancer Neuropathy [place] feet Osteoarthritis Exercise / Class Metabolic Activity III < 4 Walking/Shop/Light housework Past Family History Family History Brother Family history of lung cancer Sister Family history of lung cancer Family history of kidney cancer Family history of skin cancer Family history of breast cancer Family history of uterine cancer Family history of ovarian cancer Past Surgical History Surgical History H/O exploratory laparotomy for abdominal pain, found hiatal hernia History of arthroscopy of right knee History of cataract surgery History of section History of colonoscopy History of esophagogastroduodenoscopy (EGD) History of laminectomy History of lobectomy of lung left lower lobe. [facility] 05/04/17. MAC 3, ETT 7.5, no issues noted in anesthesia record. History of surgery removal of "eccrine" gland History of total abdominal hysterectomy and bilateral salpingo-oophorectomy Hx of cholecystectomy Past Anesthesia History No Hx of Anesthesia Complications and No Family Hx of Anesthesia Complications History of PONV No Hx of PONV and No Hx of Motion Sickness Social History Smoking Status: Former smoker tobacco type: cigarettes Smoking cigarettes per day: QUIT 15 YR AGO, PREVIOUS 1/2-34 PPD X25 YR Do You Dip or Chew Tobacco: No Hx Alcohol Use: No Hx Substance Use: No substance use type: prescription drug Physical Exam Vital Signs Last Vital Signs Temp 98.1 F 08/07/18 03:54 Pulse 77 08/07/18 03:54 Resp 18 08/07/18 03:54 BP 124/79 08/07/18 03:54 Pulse Ox 93 08/07/18 03:54 ENMT Mouth: + edentulous Thyromental Distance: > or= 3.5 Finger Breadths Mallampati Class: II Neck normal visual inspection Respiratory normal respiratory effort Auscultation: lungs clear to auscultation bilaterally Cardiovascular Rate/Rhythm: regular rate and regular rhythm Testing Electrocardiogram Date: 08/02/18 Normal sinus rhythm, rate 99 bpm Right bundle branch block Inferior infarct (cited on or before 02-AUG-2018) When compared with ECG of 24-APR-2018 12:08, No significant change Laboratory Results 08/05/18 05:45 08/05/18 05:45 PT 11.4 Seconds (9.0-12.0) 08/06/18 06:57 INR 1.1 (0.9-1.1) 08/06/18 06:57 APTT 27.0 Seconds (21.0-31.0) 08/06/18 06:57 Urine Color Yellow 08/05/18 06:25 Urine Appearance Clear (Clear) 08/05/18 06:25 Urine pH 7.5 (4.5-7.5) 08/05/18 06:25 Ur Specific [place] 1.015 (1.000-1.030) 08/05/18 06:25 Urine Protein Negative (Negative) 08/05/18 06:25 Urine Glucose (UA) Negative (Negative) 08/05/18 06:25 Urine Ketones Negative (Negative) 08/05/18 06:25 Urine Nitrite Negative (Negative) 08/05/18 06:25 Ur Leukocyte Esterase Negative (Negative) 08/05/18 06:25 08/07/18 08/06/18 06:27 20:09 POC Glucose 128 H 128 H
[2018-08-07] MEDS ORDERED: fentaNYL citrate 100 MCG/2 ML VIAL IV PRN (07:37)
[2018-08-07] MEDS ORDERED: ePHEDrine sulfate 50 MG/ML AMP IV PRN (07:37)
[2018-08-07] MEDS ORDERED: ONDANSETRON INJ 2 MG/ML 2 ML VIAL IV PRN (07:37)
[2018-08-07] MEDS ORDERED: ATROPINE SULFATE 0.1 MG/ML 10ML SYR IV PRN (07:37)
[2018-08-07] MEDS: INSULIN ASPART 100 UNITS/ML 3 ML PEN SC SCH ×4 (08:00→21:35)
[2018-08-07] MEDS ORDERED: CEFAZOLIN 2,000 MG/15 ML IV PUSH IV ONE (08:05)
--- NOTE | 2018-08-07 08:06 | History & Physical Bridge Note ---
Date of Service August 07, 2018 History & Physical Bridge Note I have examined the patient, reviewed the History & Physical and in the interval since the performance of the History & Physical I have noted the following changes of clinical significance: no changes noted. The patient accepts risks of procedure including bleeding, infection, damage to surrounding structures, hypotension, diarrhea, pneumothorax and agrees to proceed.
--- NOTE | 2018-08-07 08:43 | Operative Report ---
Post Operative Report Pre & Post Diagnosis Operation Date: 08/07/18 08:00 Pre-Op Diagnosis: intractable abdominal pain secondary to malignancy Post-Op Diagnosis: intractable abdominal pain secondary to malignancy Procedure Operation Date: 08/07/18 08:00 Actual Procedures p Diagnostic Celiac Plexus Block(Not Applicable) - Elaine Salcido DO Surgeon Elaine Salcido DO [place] none Estimated Blood Loss 0 Findings Consistent with Post-Op Diagnosis Specimens none Drains none Anesthesia Type MAC Complications none Disposition Accompanied Patient To Recovery: No Disposition: Recovery Room Description of Procedure CELIAC PLEXUS BLOCK Diagnosis: Intractable abdominal pain secondary to liver malignancy Side injected: left Surgeon: Dr. Elaine Salcido Anesthesia: local sedation Material forwarded to lab: none Complications noted: none Prior to starting, the Patients diagnosis and the procedure were reviewed with the patient in detail. Possible risks, complications and alternative therapies were also reviewed. Patients questions were answered. Informed consent was obtained. Allergies and medication list was reviewed. A peripheral IV was started and Ancef 2gm was given IV prior to the start of the injection. IV sedation was given per anesthetic record. The patient was brought to the operating room and placed in prone position on the table. Immediately prior to starting the procedure, a time out was conducted with the staff and the patient where the Patient was identified, proposed procedure was verified, consent was reviewed and the proper site for the planned procedure was identified. Fluoroscopy was utilized in performing the procedure to assist in placement of the needle, to evaluate the final position on the needle prior to injection and to avoid intravascular injection. The thoracolumbar spine area was prepped with Duraprep and Betadine solution. Sterile drapes were applied. Next, a true AP view of the L1 vertebral body was identified. The C-arm was then oblique to the appropriate side approximately 30 degrees so that the superior lateral margin of the vertebral body was congruent with the transverse process. 1% lidocaine, 5 cc, was infiltrated in the skin and subcutaneous tissues using a 27 gauge needle. Then a 5 inch Quincke spinal needle was introduced at the superior lateral margin of the L1 vertebral body and advanced until contact was made with the vertebral body. The needle was the rotated and walked off laterally from the vertebral body. Next, a lateral Xray was taken and the needle was advanced until it lied just anterior 2cm to the L1 vertebral body via trans-crural approach. This was confirmed in AP view. A 6 inch micro bore tubing was attached to the needle. Next, 3ml of Isovue 300 contrast was injected showing typical spread along the celiac plexus. Digital subtraction imaging showed no vascular uptake. This was confirmed again in AP view. No heme or paresthesias were noted. No CSF was noted. Next 15ml of 0.5% Ropivacaine with 1:200,000 Epinephrine mixed with 3ml of contrast and 10mg of preservative free dexamethasone was injected in 5ml aliquots after negative aspiration for blood or CSF. No complications were noted. There were no signs or symptoms of local anesthetic toxicity. The needle was withdrawn. Adequate hemostasis was noted. A sterile Band-Aid was applied at the injection site. Patient was able to log roll back to the supine position. Patient was taken to the recovery room without complications noted. Should the patient have relief with this diagnostic procedure, will plan for neurolytic block in the future. I attest to the content of the Intraoperative Record and any orders documented therein. Any exceptions are noted below.
--- NOTE | 2018-08-07 09:21 | Anesthesiology Progress Note ---
Date of Service August 07, 2018 Anesthesia Post Procedure Vital Signs Vital Signs: Temp Pulse Pulse Resp BP BP Pulse Ox 08/07/18 09:15 97.9 F 80 15 115/63 93 08/07/18 09:05 78 19 109/65 94 08/07/18 08:55 83 16 107/67 94 08/07/18 08:49 99.0 F 85 12 112/67 95 08/07/18 07:38 98.1 F 73 20 138/80 94 08/07/18 03:54 98.1 F 77 18 124/79 93 08/06/18 23:20 98.1 F 75 20 109/69 93 08/06/18 19:27 98.1 F 75 18 119/73 94 08/06/18 15:16 98.6 F 90 18 114/74 96 Pain Intensity Abdomen: Pain Intensity: 7 Transfer of Care Handoff Completed per policy Notes Mental Status: alert / awake / arousable and participated in evaluation Patient Amnestic to Procedure: Yes Nausea / Vomiting: adequately controlled Pain: adequately controlled Airway Patency, RR, SpO2: stable & adequate BP & HR: stable & adequate Hydration State: stable & adequate Anesthetic Complications: no major complications apparent and Pt Satisfied with anesthetic care
[2018-08-07] MEDS: ALLOPURINOL 100 MG TAB PO SCH (09:41)
[2018-08-07] MEDS: TRIAMTERENE/HCTZ 37.5/25MG TAB PO SCH (09:41)
[2018-08-07] MEDS: BACLOFEN 10 MG TAB PO SCH ×3 (09:41→21:33)
[2018-08-07] MEDS: PANTOprazole 40 MG TAB PO SCH (09:41)
[2018-08-07] MEDS: DOCUSATE SODIUM 100 MG CAP PO SCH ×3 (09:41→21:32)
[2018-08-07] MEDS: LIDOCAINE 5% 1 PATCH TD SCH (09:42)
[2018-08-07] MEDS: PREGABALIN 75 MG CAP PO SCH ×2 (09:47→21:37)
[2018-08-07 10:30] LABS: Hematocrit (blood only) 33.7 % (37-47); Mean Corpuscular Hgb Conc 32.6 g/dL (32-36); Mean Platelet Volume 10.4 fL (7.4-10.4); Platelet Count 264 K/uL (130-400); RDW Coefficient of Variation 14.6 % (11.5-14.5); RDW Standard Deviation 44.5 fL (36.4-46.3); Red Blood Count 4.06 M/uL (4.2-5.4); White Blood Count 8.41 K/uL (4.8-10.8)
[2018-08-07 10:44] LABS: INR 1.2 (0.9-1.1); Partial Thromboplastin Time 27.8 Seconds (21.0-31.0); Prothrombin Time 11.7 Seconds (9.0-12.0)
[2018-08-07 10:57] LABS: Albumin Level 2.7 gm/dl (3.4-5.0); BUN Creatinine Ratio 19.9 (10-20); Calcium 8.9 mg/dl (8.5-10.1); Est GFR (African American) 93.9
[2018-08-07 11:00] LABS: Albumin Globulin Ratio 0.6 (0.9-2); Bilirubin,Total 0.3 mg/dl (0.2-1); Globulin 4.8 gm/dl (2.5-4.0); Total Protein 7.5 gm/dl (6.4-8.2)
[2018-08-07] MEDS: CHOLECALCIFEROL 1,000 UNITS TAB PO SCH (11:00)
--- NOTE | 2018-08-07 13:20 | Hospitalist Progress Note ---
Date of Service August 07, 2018 Assessment & Plan (1) Abdominal pain, acute, right upper quadrant: - In setting of liver lesions/malignancy -- confirmed via biopsy in May 2018. - Pain management consulted, s/p celiac plexus nerve block today. - Pain significantly improved following nerve block, will monitor over next 24 hours. - Dilaudid IV/PO and Toradol IV prn acute pain - has not been requiring. - Continue home Nortriptyline, Lyrica and Baclofen as prescribed for chronic pain; will d/c Lidoderm patch (pt. refused this AM) - Colace 200 mg TID with Miralax prn in setting of opioid induced constipation. (2) Liver cancer: - Diagnosed via liver biopsy in May 2018. - Has not received treatment yet -- is scheduled to follow up with Dr. Bajwa on Tuesday. - Is going to be evaluated at [facility] in [place] for second opinion this month as well. (3) History of lung cancer: - S/p left lower lobectomy. - CT chest showed opacity in left lung base, slightly increased compared to Mar 2018; will need close follow up. - Not currently receiving treatment. (4) Hypertension: - Continue home HCTZ/Triamterene as prescribed. (5) GERD (gastroesophageal reflux disease): - Continue PPI daily as prescribed. (6) Gout: - Continue Allopurinol 100 mg daily as prescribed. (7) Hypothyroidism: - Continue Synthroid 88 mcg daily as prescribed. - Most recent TSh was 2.4 in June 2018. (8) Type II diabetes mellitus: - Most recent A1C was 7.4 in June 2018. - SSI coverage ordered. - Is not on medication management at home -- will need to follow up with PCP to discuss. (9) Cirrhosis: - Noted on CT A/P; in setting of liver cancer. - Monitored as outpatient. - PT/INR was 1.3 this morning; monitor coags as outpatient if necessary. (10) DVT prophylaxis: - Held Lovenox for nerve block; can resume on 08/08 if pt. is not discharged to home. Dispo: Med/surg; discharge on 08/08 if pain is well controlled. Subjective Pt. is doing well status post celiac plexus nerve block. Had significant pain in RUQ overnight, was using pain medication prn. Pain is now resolved following nerve block. Will monitor throughout course of the day and discharge to home likely tomorrow. Pt. will be evaluated by Dr. Bajwa on Tuesday and will obtain a second opinion in [place] on 08/15/18. Review of Systems Review of Systems: All systems reviewed & are unremarkable except as noted in HPI & below Constitutional: no fever, no chills, no fatigue and no weakness Respiratory: no cough, no dyspnea, no dyspnea on exertion and no wheezing Cardiovascular: no chest pain, no palpitations, no lightheadedness, no syncope and no edema Gastrointestinal: no abdominal pain, no nausea, no vomiting and no constipation Genitourinary: no difficulty urinating Musculoskeletal: no back pain and no joint pain Integumentary: no non-healing lesions Allergy / Immunological: no rash Physical Exam Physical Exam: General: Resting comfortably in no apparent distress HEENT: NC/AT; PERRLA with EOMI; [place] conjunctiva, MMM. No erythema of posterior pharynx Neck: Supple and nontender Cardiac: RRR Lungs: CTA bilaterally Abdomen: Bowel normoactive X 4; Nontender to palpation Extremities: Warm. No edema present Neuro: No focal weakness Skin: No rash Results & Data Vital Signs (Past 12 Hours) Vital Signs Temp Pulse Pulse Resp BP BP Pulse Ox 08/07/18 12:00 36.5 C 79 17 112/71 95 08/07/18 09:15 36.6 C 80 15 115/63 93 08/07/18 09:05 78 19 109/65 94 08/07/18 08:55 83 16 107/67 94 08/07/18 08:49 37.2 C 85 12 112/67 95 08/07/18 07:38 36.7 C 73 20 138/80 94 08/07/18 03:54 36.7 C 77 18 124/79 93 Laboratory Results 08/07/18 08/07/18 08/07/18 Range/Units 11:33 10:16 10:16 WBC (4.8-10.8) K/uL RBC (4.2-5.4) M/uL Hgb (12.0-16.0) g/dL Hct (37-47) % MCV (80-100) fL MCH (25-34) pg MCHC (32-36) g/dL RDW Std Deviation (36.4-46.3) fL RDW Coeff of Harish (11.5-14.5) % Plt Count (130-400) K/uL MPV (7.4-10.4) fL PT 11.7 (9.0-12.0) Seconds INR 1.2 H (0.9-1.1) APTT 27.8 (21.0-31.0) Seconds PTT Ratio 1.0 Sodium 140 (136-145) mmol/L Potassium 4.0 (3.5-5.1) mmol/L Chloride 105 (98-107) mmol/L Carbon Dioxide 29 (21-32) mmol/L Anion Gap 6.0 (3-11) BUN 15 (7-18) mg/dl Creatinine 0.77 (0.6-1.2) mg/dl Est Cr Clr Drug Dosing 87.0 ml/min Est GFR ( Amer) 93.9 Est GFR (Non-Af Amer) 81.0 BUN/Creatinine Ratio 19.9 (10-20) Glucose 154 H (70-99) mg/dl POC Glucose 192 H (70-99) Calcium 8.9 (8.5-10.1) mg/dl Total Bilirubin 0.3 (0.2-1) mg/dl AST 47 H (15-37) U/L ALT 25 (12-78) U/L Alkaline Phosphatase 115 (45-117) U/L Total Protein 7.5 (6.4-8.2) gm/dl Albumin 2.7 L (3.4-5.0) gm/dl Globulin 4.8 H (2.5-4.0) gm/dl Albumin/Globulin Ratio 0.6 L (0.9-2) 08/07/18 08/07/18 08/07/18 Range/Units 10:16 09:16 06:27 WBC 8.41 (4.8-10.8) K/uL RBC 4.06 L (4.2-5.4) M/uL Hgb 11.0 L (12.0-16.0) g/dL Hct 33.7 L (37-47) % MCV 83.0 (80-100) fL MCH 27.1 (25-34) pg MCHC 32.6 (32-36) g/dL RDW Std Deviation 44.5 (36.4-46.3) fL RDW Coeff of Harish 14.6 H (11.5-14.5) % Plt Count 264 (130-400) K/uL MPV 10.4 (7.4-10.4) fL PT (9.0-12.0) Seconds INR (0.9-1.1) APTT (21.0-31.0) Seconds PTT Ratio Sodium (136-145) mmol/L Potassium (3.5-5.1) mmol/L Chloride (98-107) mmol/L Carbon Dioxide (21-32) mmol/L Anion Gap (3-11) BUN (7-18) mg/dl Creatinine (0.6-1.2) mg/dl Est Cr Clr Drug Dosing ml/min Est GFR ( Amer) Est GFR (Non-Af Amer) BUN/Creatinine Ratio (10-20) Glucose (70-99) mg/dl POC Glucose 119 H 128 H (70-99) Calcium (8.5-10.1) mg/dl Total Bilirubin (0.2-1) mg/dl AST (15-37) U/L ALT (12-78) U/L Alkaline Phosphatase (45-117) U/L Total Protein (6.4-8.2) gm/dl Albumin (3.4-5.0) gm/dl Globulin (2.5-4.0) gm/dl Albumin/Globulin Ratio (0.9-2) 08/06/18 08/06/18 Range/Units 20:09 16:43 WBC (4.8-10.8) K/uL RBC (4.2-5.4) M/uL Hgb (12.0-16.0) g/dL Hct (37-47) % MCV (80-100) fL MCH (25-34) pg MCHC (32-36) g/dL RDW Std Deviation (36.4-46.3) fL RDW Coeff of Harish (11.5-14.5) % Plt Count (130-400) K/uL MPV (7.4-10.4) fL PT (9.0-12.0) Seconds INR (0.9-1.1) APTT (21.0-31.0) Seconds PTT Ratio Sodium (136-145) mmol/L Potassium (3.5-5.1) mmol/L Chloride (98-107) mmol/L Carbon Dioxide (21-32) mmol/L Anion Gap (3-11) BUN (7-18) mg/dl Creatinine (0.6-1.2) mg/dl Est Cr Clr Drug Dosing ml/min Est GFR ( Amer) Est GFR (Non-Af Amer) BUN/Creatinine Ratio (10-20) Glucose (70-99) mg/dl POC Glucose 128 H 112 H (70-99) Calcium (8.5-10.1) mg/dl Total Bilirubin (0.2-1) mg/dl AST (15-37) U/L ALT (12-78) U/L Alkaline Phosphatase (45-117) U/L Total Protein (6.4-8.2) gm/dl Albumin (3.4-5.0) gm/dl Globulin (2.5-4.0) gm/dl Albumin/Globulin Ratio (0.9-2)
[2018-08-07] MEDS ORDERED: CINNAMON BARK PO SCH (21:00)
[2018-08-07] MEDS: TRAZODONE HCL 100 MG TAB PO SCH (21:33)
[2018-08-07] MEDS: MAGNESIUM OXIDE 400 MG TAB PO SCH (21:34)
[2018-08-07] MEDS: NORTRIPTYLINE HCL 25 MG CAP PO SCH (21:34)
[2018-08-08] MEDS: LEVOTHYROXINE SODIUM 88 MCG TABLET PO SCH (05:52)
[2018-08-08 07:13] LABS: Hematocrit (blood only) 35.1 % (37-47); Hemoglobin 11.6 g/dL (12.0-16.0)
[2018-08-08 07:26] VITALS: BP 134/79; TEMP 97.7; O2SAT 91
[2018-08-08 07:46] LABS: Albumin Level 2.8 gm/dl (3.4-5.0); Calcium 9.1 mg/dl (8.5-10.1); Creatinine Clr Calc Pharmacy 89.3 ml/min; Est GFR (African American) 96.9; Est GFR (Non-African American) 83.6; Potassium 3.4 mmol/L (3.5-5.1)
[2018-08-08 07:47] LABS: Albumin Globulin Ratio 0.5 (0.9-2); Bilirubin,Total 0.4 mg/dl (0.2-1); Globulin 5.2 gm/dl (2.5-4.0)
[2018-08-08] MEDS: BACLOFEN 10 MG TAB PO SCH (08:01)
[2018-08-08] MEDS: ALLOPURINOL 100 MG TAB PO SCH (08:01)
[2018-08-08] MEDS: CHOLECALCIFEROL 1,000 UNITS TAB PO SCH (08:01)
[2018-08-08] MEDS: TRIAMTERENE/HCTZ 37.5/25MG TAB PO SCH (08:01)
[2018-08-08] MEDS: PANTOprazole 40 MG TAB PO SCH (08:01)
[2018-08-08] MEDS: DOCUSATE SODIUM 100 MG CAP PO SCH (08:01)
[2018-08-08] MEDS: PREGABALIN 75 MG CAP PO SCH (08:04)
[2018-08-08] MEDS: INSULIN ASPART 100 UNITS/ML 3 ML PEN SC SCH (08:38)
--- NOTE | 2018-08-08 08:47 | Pain Management Progress Note ---
Date of Service August 08, 2018 Assessment & Plan (1) Abdominal pain, acute, right upper quadrant: 1. I am pleased with the results of her diagnostic celiac plexus block as the patient has had near resolution of her pain. Should pain recur, she is a candidate for repeat diagnostic block versus neural lysis in the future. She was provided with my office contact information and may call for an appointment when necessary. 2. Recommend continuation of nortriptyline and Lyrica as an outpatient at current dosing. 3. Should oral opiates be considered for discharge, would recommend hydrocodone/acetaminophen 5/325 mg 1 p.o. q. 6-8 as needed to minimize opiate potency. 4. Thank you for this consultation please call if any questions otherwise will sign off. (2) Liver cancer: (3) Type II diabetes mellitus: (4) Cirrhosis: Subjective 63 year old white female with history of lung cancer (s/p resection) and now primary liver malignancy diagnosed in May 2018. Patient was admitted to the [facility] for pain in the RUQ abdomen 5 days ago with pain x1 month described as a deep aching with intermittent sharp stabbing and spasming pain without radicular symptoms. Oxycodone, Lidoderm, nortriptyline, Lyrica, oral hydromorphone were of minimal benefit, therefore, she had a diagnostic celiac plexus block performed 08/07/2018 with near resolution of her pain. The patient is extremely pleased with the results of the procedure without complications and has been able to walk around her room without need for oral analgesics. She is hopeful for discharge today. She offers no new complaints. Pain Assessment Pain Assessment Pain scale - at its best (0-10): 0 Pain scale - at its worst (0-10): 1 Physical Exam Physical Exam: Constitutional: Well-developed, well-nourished, slightly overweight Psych: Awake, alert, and oriented 3 with normal affect and mood. Recent memory appears grossly intact. Calm and cooperative on examination Eyes: Pupils are equally round and reactive to light with normal size pupils, eyelids appear normal Ear, nose, mouth, and throat: Moist nasal and oral membranes, lips and tongues appear normal, no external ear abnormalities are noted Neck: The trachea is midline without deviation and no thyromegaly is noted Respiratory: Normal respiratory effort without distress, no audible wheezes or rhonchi CV: Normal S1 and S2 Chest: Deferred GI/abdomen: Minimally tender over the right upper quadrant without guarding Musculoskeletal: Head is normocephalic and atraumatic, gait is not observed but patient is able to move in bed without significant discomfort Cervical: Lordotic curve: Normal Range of motion is normal with extension, flexion, side-bending, rotation Strength: Strength is grossly equal bilaterally with 5 out of 5 strength in all planes Lumbar: Lordotic curve: Normal Range of motion is normal with extension, flexion, side-bending, rotation Tenderness: Nontender over the axial midline Strength: Strength is grossly equal bilaterally with 5 out of 5 strength in all planes Skin: No rashes, lesions, ulcers, or induration noted. Injection site is well- healing without erythema, fluctuance, or discharge. Neuro: No nystagmus noted, the tongue is midline, the patient is able to rotate their head bilaterally : Deferred
[2018-08-08 13:05] VITALS: PULSE 79
--- NOTE | 2018-08-08 21:14 | Discharge Summary ---
Date of Service August 08, 2018 Admission HPI Per Admitting Provider 63yo C female with history of lung cancer, HTN/HLP/GERD/Asthma/COPD, active liver cancer presenting with Right sided abdominal pain. Patient reports that pain is severe, 10/10, cramping, present appx 3 weeks. Associated wtih near- syncope and nausea with NB/NB vomiting. Patient was to be seen by pain management, appointment for end of the month. She has been taking Oxycodone 5mg po x 2 tablets daily for the pain with minimal relief. ER Course: Shana Hernandez Principal Diagnosis Intractable Pain S/P Celiac Plexus Injection Discharge Exam Constitutional WD/WN, vitals as above Eyes + anicteric sclerae ENMT Ears: no hearing impairment Neck normal visual inspection and trachea midline Respiratory normal respiratory effort, lungs clear to auscultation Cardiovascular RRR, no murmur, no edema Gastrointestinal (Abdomen) Inspection/Auscultation: normal bowel sounds Percussion/Palpation: abdomen soft; abdomen nontender Musculoskeletal Head/Neck/Chest: normocephalic, head atraumatic and neck supple Skin no rashes, warm and dry Neurologic moves all extremities Psychiatric A+Ox3, euthymic affect Discharge Data Allergies Allergy/AdvReac Type Severity Reaction Status Date / Time metoclopramide Allergy Intermediate FACIAL AND Verified 08/03/18 00:11 FEET SWELLING, BONE PAIN celecoxib Allergy Mild RASH Verified 08/03/18 00:11 silicone Allergy Unknown SKIN MIRANDA Verified 08/03/18 00:11 atorvastatin AdvReac Intermediate headaches Verified 08/03/18 00:11 Consultations 08/03/18 02:09 ED Decision to Admit Stat 08/03/18 05:13 Consult Pain Management Routine Procedures Performed Operation Date: 08/07/18 08:00 Actual Procedures p Diagnostic Celiac Plexus Block(Not Applicable) - Elaine Salcido DO Ordered Studies 08/02/18 21:50 CT abd pelvis oral and IV con Urgent 08/02/18 21:56 CT angio chest PE protocol Urgent 08/05/18 22:09 US venous doppler LE RT Urgent 08/07/18 08:00 FL fluoroscopy <1hr Routine FL spine 1V any level Routine Hospital Course (1) Abdominal pain, acute, right upper quadrant: - Likely in setting of liver lesions/malignancy - confirmed on bx in May 2018 - Pain management consulted and S/P celiac plexus nerve block and plans to F/U as outpatient for further intervention if needed - Continued Nortriptyline as previously prescribed; Increased Lyrica to 150 mg BID; Rx given for Hydrocodone/Acetaminophen 1 tab Q6H PRN for breakthrough pain - Maintain bowel regimen due to opioid-induced constipation (2) Liver cancer: - Diagnosed via liver biopsy in May 2018. - Has not received treatment yet -- is scheduled to follow up with Dr. Bajwa on 08/11 - Is going to be evaluated at [facility] in [place] for second opinion this month as well. (3) History of lung cancer: - S/P left lower lobectomy. - CT chest showed opacity in left lung base, slightly increased compared to Mar 2018; will need close follow up. - Not currently receiving treatment. (4) Hypertension: - Continue home HCTZ/Triamterene as prescribed. (5) GERD (gastroesophageal reflux disease): - Continue PPI daily as prescribed. (6) Gout: - Continue Allopurinol 100 mg daily as prescribed. (7) Hypothyroidism: - Continue Synthroid 88 mcg daily as prescribed. - Most recent TSH was 2.4 in June 2018. (8) Type II diabetes mellitus: - Most recent A1C was 7.4 in June 2018. - Is not on medication management at home -- will need to follow up with PCP to discuss. (9) Cirrhosis: - Noted on CT A/P; in setting of liver cancer. - Monitored as outpatient. Total Time Total Time Spent Total Time Spent (In Minutes): Greater than 30 minutes Discharge Plan Discharge Items Patient Disposition: Home - Self-Care Reason For Visit: INTRACTABLE PAIN Discharge Diagnosis: Uncontrolled Pain Discharge Goals: Decrease discomfort, Improve function and Increase independence Activity: Resume your previous activity Non-emergency contact: Primary Care Provider Call non-emergency contact if: you have any medication questions, your symptoms worsen and you have a fever Follow-up/Referrals: Tawanda Ruvalcaba MD [Primary Care Provider] - 08/17/18 7:30 am (Please, follow up at Dr. Ruvalcaba's office with his associate, Susan DAVIDSON, on August 17 at 7:30 am. *If you need to change this appointment, call their office at [phone].) Diet: Regular Addtl Provider Instructions: Pain: - You were seen by pain management in the hospital. You had a celiac plexus nerve block completed which seems to have really helped the pain - Please continue your Nortriptyline and Lyrica. Nortriptyline dosing remains the same however the Lyrica was increased to 150 mg twice a day and a prescription will be provided - Will also give a prescription for some additional pain medication if needed for breakthrough pain. Pain medication can increase constipation so a good bowel regimen is important. Recommend to continue stool softeners and can use laxatives as needed. Recommend to try and walk to help keep the bowels regular. If constipation continues to be an issue please talk with you doctor about other options Type II diabetes mellitus: - The most recent A1c is 7.4 which is a little on the higher side as we would like this closer to 6.5 if possible. Please discuss with your family doctor about this to see if medications need to be added or monitoring - Recommend a carb consistent diet which can help control sugars. Home Medications: - Please continue home medications as previously prescribed as we did not make adjustments to these Prescriptions: New Lyrica 75 mg Capsule 150 mg PO BID 30 Days Qty: 120 RF: 0 hydrocodone-acetaminophen 5-325 mg tablet 1 tab PO Q6H PRN (Reason: pain) 3 Days Qty: 12 RF: 0 Continued allopurinol 100 mg Tablet 100 mg PO QAM RF: 0 levothyroxine 88 mcg Tablet 88 mcg PO QAM RF: 0 trazodone 100 mg Tablet 100 mg PO QPM RF: 0 triamterene-hydrochlorothiazid 37.5-25 mg Tablet 1 tab PO QAM RF: 0 omeprazole 20 mg Capsule,Delayed Release(Dr/Ec) 20 mg PO QAM RF: 0 nortriptyline 50 mg Capsule 100 mg PO HS RF: 0 cinnamon bark [Cinnamon] 500 mg Capsule 1 cap PO QPM RF: 0 cholecalciferol (vitamin D3) [Vitamin D3] 1,000 unit Tablet 1 tab PO DAILY RF: 0 albuterol sulfate [ProAir HFA] 90 mcg/actuation Hfa Aerosol Inhaler 2 puff INHALATION QID PRN (Reason: Shortness Of Breath) RF: 0 magnesium 200 mg Tablet 400 mg PO HS RF: 0 docusate sodium [Stool Softener] 250 mg Capsule 250 mg PO TID RF: 0 Discontinued tramadol-acetaminophen 37.5-325 mg Tablet 1 - 2 tab PO Q6H PRN (Reason: Pain) RF: 0 Lyrica 75 mg Capsule 75 mg PO TID RF: 0 Stand-Alone Forms: Call Back Authorization, [facility] Discharge Orders: Discharge Order (Routine); Ordered 08/08/18 Ordered By: Jelly Cerda Admission Data Admit Date/Time: 08/03/18 04:06 Attending Provider: Jose Ac Admit Provider: Jessica Tovar Primary Care Provider: Tawanda Ruvalcaba Other Providers: Jessica Tovar ; Elaine Salcido Service: Medical Other Interventions: Discharge Summary Assessment (RN) Last Done: 08/08/18 13:03 Pending Studies at Discharge: No DC Date/Time DO NOT enter until pt leaves facility: 08/08/18 13:30 Supervising Physician Co-Signing Physician Notes Attending note: patient seen and examined with Jelly Cerda PA-C. I agree with her discharge summary. Patient feeling much better after her celiac plexus block, no pain ready to go home - RUQ pain, likely from liver tumor: resolved after nerve block, will follow up with Dr. Salcido as needed - Liver tumor: pathology showed carcinoma, was not considered a lung met from prior left lower lobe lung CA plans to get second opinion in [place] soon
== END 2018-08-08 13:30 | disposition home or self-care (01) | DRG 437 ==
LOC: ED 21:11 → 4W 08-03 04:06 → SUATTDRO 08-03 04:06 → 4W 08-03 04:36

== ENCOUNTER 2018-11-23 03:08 | Inpatient (IN) ==
[2018-11-23] MEDS ORDERED: SODIUM CHLORIDE 0.9% 1000ML 1,000 ML IV ONE ×3 (03:27→06:14)
[2018-11-23] MEDS ORDERED: ACETAMINOPHEN 1,000 MG/100 ML VIAL IV STA (04:01)
[2018-11-23 04:02] LABS: Basophils # (auto) 0.02 K/uL (0-0.2); Basophils % (auto) 0.2 %; Eosinophils # (auto) 0.04 K/uL (0-0.5); Eosinophils % (auto) 0.4 %; Hematocrit (blood only) 31.8 % (37-47); Hemoglobin 10.2 g/dL (12.0-16.0); Immature Granulocytes # (auto) 0.05 K/uL (0.00-0.02); Immature Granulocytes % (auto) 0.5 %; Lymphocytes # (auto) 0.68 K/uL (1.2-3.4); Lymphocytes % (auto) 6.5 %; Mean Corpuscular Hemoglobin 27.1 pg (25-34); Mean Corpuscular Hgb Conc 32.1 g/dL (32-36); Mean Corpuscular Volume 84.6 fL (80-100); Mean Platelet Volume 9.7 fL (7.4-10.4); Monocytes # (auto) 0.08 K/uL (0.11-0.59); Monocytes % (auto) 0.8 %; Neutrophils # (auto) 9.66 K/uL (1.4-6.5); Neutrophils % (auto) 91.6 %; Platelet Count 253 K/uL (130-400); RDW Coefficient of Variation 19.6 % (11.5-14.5); Red Blood Count 3.76 M/uL (4.2-5.4); White Blood Count 10.53 K/uL (4.8-10.8)
[2018-11-23 04:18] LABS: Alanine Aminotransferase 13 U/L (12-78); Albumin Level 2.3 gm/dl (3.4-5.0); Aspartate Aminotransferase 26 U/L (15-37); BUN Creatinine Ratio 15.5 (10-20); Blood Urea Nitrogen 12 mg/dl (7-18); Calcium 8.5 mg/dl (8.5-10.1); Carbon Dioxide 29 mmol/L (21-32); Chloride 101 mmol/L (98-107); Creatinine Clr Calc Pharmacy 82.8 ml/min; Est GFR (African American) 95.4; Est GFR (Non-African American) 82.3; Glucose 146 mg/dl (70-99); Lipase 190 U/L (73-393); Magnesium 1.6 mg/dl (1.8-2.4); Sodium 138 mmol/L (136-145)
[2018-11-23 04:29] LABS: Albumin Globulin Ratio 0.5 (0.9-2); Alkaline Phosphatase 215 U/L (45-117); Bilirubin,Total 0.4 mg/dl (0.2-1); Globulin 5.1 gm/dl (2.5-4.0); Total Protein 7.4 gm/dl (6.4-8.2); Troponin I < 0.015 ng/ml (0-0.045)
[2018-11-23] MEDS ORDERED: MAGNESIUM SULFATE / D5W 1 GM/100 ML BAG IV ONE ×2 (04:57→08:12)
[2018-11-23] MEDS ORDERED: OPTIRAY 320 125ml IV PRN ×2 (05:27→05:47)
[2018-11-23] MEDS ORDERED: VANCOMYCIN CONSULT ACTIVE PRN ×2 (06:14→09:28)
[2018-11-23] MEDS ORDERED: VANCOMYCIN HCL 1,750 MG in SODIUM CHLORIDE 0.9% 500 ML IV ONE (06:14)
[2018-11-23] MEDS ORDERED: CEFEPIME 2,000 MG/20 ML VIAL IV STA (06:14)
--- NOTE | 2018-11-23 06:43 | CT Scan Report ---
CT abd pelvis IV con only CT DOSE: HISTORY: Pain fever, abd pain, known ca TECHNIQUE: Multiaxial CT images of the abdomen and pelvis were performed following the use of intrave nous contrast. A dose lowering technique was utilized adhering to the principles of ALARA. COMPARISON STUDY: 09/09/2018 FINDINGS: Minimal dependent basilar atelectasis. Mildly progressive liver metastatic disease. Progressive retrocrural and celiac axis adenopathy. Probable extension to the lateral and inferior as pect of the gastric fundus and gastroesophageal junction, left adrenal, as well as compromise of the splenic vein. Additional extension to the pancreatic tail/pancreatic body. These findings are progres sive compared to the prior study. Nonobstructive bowel pattern. No significant pelvic or inguinal kailey pathology. IMPRESSION: 1. Progressive neoplastic change involving the liver, upper abdominal and retroperitoneal adenopathy as described,. 2. The appearance is consistent with that of progressive neoplastic change. 3. Nonobstructive bowel pattern. The above report was generated using voice recognition software. It may contain grammatical, syntax or spelling errors. Electronically signed by: Chance Torres M.D. 11/23/2018 6:41 AM
[2018-11-23 06:56] LABS: Appearance Urine Clear (Clear); Bacteria Urine Automated 1+ (Negative); Bilirubin Urine Negative (Negative); Blood Urine Negative (Negative); Color Urine Yellow; Epithelial Cell Urine Auto >30 /lpf (0-5); Glucose Urine UA Negative (Negative); Ketones Urine Negative (Negative); Leukocyte Esterase Urine Trace (Negative); Nitrite Urine Negative (Negative); Protein Urine Negative (Negative); RBC Urine Automated 0-4 /hpf (0-4); Specific Gravity Urine > 1.045 (1.000-1.030); Urobilinogen Urine Negative (Negative)
--- NOTE | 2018-11-23 07:00 | CT Scan Report ---
CT angio chest PE protocol CT DOSE: 1337.31 mGy.cm HISTORY: 63 years-old Female with fever, ca, tachy. Acute fever with tachycardia. Postoperative karson nges from prior left lower lobectomy. TECHNIQUE: Multiple CTA images of the chest were obtained after the intravenous administration of 118 ml Optiray 320. Coronal and sagittal MIPS were obtained from the axial data set and were submitted for review. All measurements were obtained according to NASCET criteria. A dose lowering technique w as utilized adhering to the principles of ALARA. COMPARISON: CT abdomen and pelvis of same day, CTA chest 08/03/2018. FINDINGS: CTA: Mild cardiomegaly. No pericardial effusion. Coronary arterial calcifications are noted. No thoracic a ortic aneurysm or dissection. Patency of the imaged great vessels. Moderate calcified plaque of the t horacic aorta. The pulmonary arterial tree is opacified to level of the proximal subsegmental branche s and demonstrates no focal filling defects to suggest pulmonary thromboembolic disease. CT CHEST: No focal thyroid nodule or adenopathy by CT size criteria. A millimeter right paratracheal lymph node is seen on image 152 series 4 which appears unchanged. No pneumothorax or pleural effusion. Postoper ative changes from prior left lower lobectomy. Moderate centrilobular emphysema. Postoperative change s with pleural parenchymal scarring redemonstrated about the right lung apex. Previously described gr oundglass opacity of the left lung base is redemonstrated on image 46 series 4 measuring 1.4 x 0.7 cm which is suggestive of probable pleural parenchymal scarring. Interval development of a few nodular foci adjacent to the right major fissure, largest which measures up to 5 mm on image 155 series 4 and image 151 of series 4. 4 mm nodular opacity of the right lung base on image 70 series 4 also appears new. There is no lobar airspace consolidation typical for pneumonia. Mild scattered bilateral tree-i n-bud nodules redemonstrated suggestive of a chronic bronchiolitis. Central airways appear patent. Th ere are a few mildly prominent lymph nodes seen adjacent to the gastroesophageal junction measuring u p to 7 mm. Mild nonspecific wall thickening of the distal esophagus and gastroesophageal junction. So ft tissues and breast parenchyma appear unremarkable. Right IJ central venous catheter is still tip t erminates within the SVC. IMPRESSION: 1. No evidence of pulmonary thromboembolic disease. 2. Postoperative changes from prior left lower lobectomy. 3. Moderate emphysema with unchanged scattered subtle tree-in-bud nodules suggestive of a chronic bro nchiolitis. 4. Development of several fissural nodules noted adjacent to the superior aspect of the right major f issure measuring up to 5 mm suggestive of lymph nodes. Attention at follow-up recommended. Additional new 4 mm solid nodule of the basal right lower lobe. Please refer to below summary of Fleischner criteria recommendations for follow-up of incidental CT n odules (Andreas Forbes, Guidelines for management of small pulmonary nodules detected on CT scans: A sta tement from the Fleischner Society, Radiology 237: [phone].) SOLID NODULES Multiple nodules size: <6 mm * Low risk patients: no routine follow-up * high risk patients: optional CT at 12 months Note: newly detected indeterminate nodule in persons 35 years of age or older. * Low risk patients: minimal or absent history of smoking and/or other known risk factors * high risk patients: history of smoking or of other known risk factors (e.g. first degree relative with lung cancer, or exposure to asbestos, radon, uranium) * if a nodule up to 8 mm is partly solid or is ground glass further follow-up is required after 24 m onths to exclude possible slow growing adenocarcinoma (KAY) The above report was generated using voice recognition software. It may contain grammatical, syntax o r spelling errors. The above report was generated using voice recognition software. It may contain grammatical, syntax o r spelling errors. Electronically signed by: Lalito Vines M.D. 11/23/2018 6:59 AM
--- NOTE | 2018-11-23 07:17 | XRay Report ---
CHEST AND ABDOMEN 2 VIEWS HISTORY: chills, tachycardia COMPARISON: Chest 08/22/2018. FINDINGS: No pneumothorax. Hazy appearance of left lung base may be due to the prior postoperative ch susan. The heart is normal in size. Mild chronic interstitial thickening persists. Bibasilar linear de nsities favor subsegmental atelectasis. Right jugular Port-A-Cath terminates in the SVC. No pneumoper itoneum. No pneumatosis. Prior cholecystectomy. No dilated loops of bowel to suggest an obstruction. Moderate well-formed stool seen throughout the colon. No renal or ureteral calculi. IMPRESSION: 1. No acute process within the chest. 2. No evidence for bowel obstruction. 3. Moderate well-formed stool within the colon. Electronically signed by: Prosper Douglas M.D. 11/23/2018 7:16 AM
--- NOTE | 2018-11-23 07:25 | Emergency Department Note ---
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 The patient states she was dreaming that she was being chased by a jemal who was going to kill her. She reports she woke up and could not stop shaking. The patient notes she was scared, nervous, and startled upon waking. She states she slept in a cold room last night and may be getting sick. The patient reports she developed mild abdominal pain yesterday. 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 The patient states this is her off week. She reports last Tuesday, she had bleeding from her port area and was told to make sure it is kept clean because it might get infected. The patient notes her oncologist is from [facility] in [place]. She denies changing her me dication, loss of appetite, vomiting, diarrhea, trouble urinating, swelling to her legs, being around anyone sick, a history of SBO, cough, cold symptoms, and chest palpitations. Home Medications Home Medications Medication Instructions Recorded Confirmed Type albuterol sulfate [ProAir HFA] 2 puff INHALATION QID PRN 12/14/17 11/23/18 History allopurinol 100 mg PO QAM 12/14/17 11/23/18 History levothyroxine 88 mcg PO QAM 12/14/17 11/23/18 History nortriptyline 100 mg PO HS 12/14/17 11/23/18 History omeprazole 20 mg PO QAM 12/14/17 11/23/18 History trazodone 100 mg PO QPM 12/14/17 11/23/18 History docusate sodium [Stool Softener] 200 mg PO BID 05/19/18 11/23/18 History triamterene 37.5 1 tab PO DAILY #90 tab 09/08/18 11/23/18 Rx mg-hydrochlorothiazide 25 mg tablet lorazepam 0.5 mg PO DAILY PRN 09/09/18 11/23/18 History oxycodone 5 mg PO Q8H PRN 09/09/18 11/23/18 History pregabalin [Lyrica] 75 mg PO TID 09/09/18 11/23/18 History prochlorperazine maleate 10 mg PO Q6H PRN 09/09/18 11/23/18 History tramadol-acetaminophen 1 tab PO Q8H PRN 09/09/18 11/23/18 History Unknown Chemo Medication 1 dose PO BIDM 11/23/18 11/23/18 History cinnamon bark [Cinnamon] 1,000 mg PO DAILY 11/23/18 11/23/18 History Allergies Allergy/AdvReac Type Severity Reaction Status Date / Time metoclopramide Allergy Intermediate FACIAL AND Verified 11/23/18 03:54 FEET SWELLING, BONE PAIN silicone Allergy Intermediate SKIN MIRANDA Verified 11/23/18 03:54 celecoxib Allergy Mild RASH Verified 11/23/18 03:54 valsartan Allergy Unknown Verified 11/24/18 08:39 atorvastatin AdvReac Intermediate headaches Verified 11/23/18 03:54 Past Med/Surg History Family History Brother Family history of lung cancer Sister Family history of lung cancer sister Family history of kidney cancer Family history of skin cancer Family history of breast cancer Family history of uterine cancer Family history of ovarian cancer Mother , age 89 "old age" No problems noted. 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 and A total of 10 systems reviewed and were otherwise negative Physical Exam Vital Signs Vital Signs - 24 hr 11/23/18 03:12 11/23/18 03:15 11/23/18 03:30 Temperature 39.0 C H Temperature Source Oral Sepsis Recent Fever Within 48 Hours Yes Sepsis New/Unexplained Change in Mental Status No Sepsis Action Taken by Nursing Physician Notified Pulse Rate 136 H Pulse Rate [Apical] 130 H 133 H Respiratory Rate 20 24 20 Respiratory Effort / Characteristics Non-Labored Respiratory Depth Normal Respiratory Pattern Tachypnea Blood Pressure 126/71 Blood Pressure [Right Arm] 129/72 92/67 L Blood Pressure Mean 89 Blood Pressure Mean [Right Arm] 91 75 Pulse Oximetry 92 93 93 Oxygen Delivery Method Room Air Room Air Room Air 11/23/18 04:19 11/23/18 05:00 11/23/18 05:25 Temperature 37.6 C H Temperature Source Oral Sepsis Recent Fever Within 48 Hours Sepsis New/Unexplained Change in Mental Status Sepsis Action Taken by Nursing Pulse Rate Pulse Rate [Apical] 113 H 119 H Respiratory Rate 25 H 29 H Respiratory Effort / Characteristics Respiratory Depth Normal Respiratory Pattern Blood Pressure Blood Pressure [Right Arm] 113/72 132/68 Blood Pressure Mean Blood Pressure Mean [Right Arm] 85 89 Pulse Oximetry 91 95 Oxygen Delivery Method Room Air Room Air 11/23/18 06:00 Temperature Temperature Source Sepsis Recent Fever Within 48 Hours Sepsis New/Unexplained Change in Mental Status Sepsis Action Taken by Nursing Pulse Rate Pulse Rate [Apical] 110 H Respiratory Rate 24 Respiratory Effort / Characteristics Respiratory Depth Respiratory Pattern Blood Pressure Blood Pressure [Right Arm] 103/55 L Blood Pressure Mean Blood Pressure Mean [Right Arm] 71 Pulse Oximetry 93 Oxygen Delivery Method Room Air GENERAL: alert, well appearing, well nourished, no distress, non-toxic EYE EXAM: normal conjunctiva, PERRL and EOM's grossly intact OROPHARYNX: no exudate, no erythema, lips, buccal mucosa, and tongue normal and mucous membranes are moist NECK: supple, no nuchal rigidity, no adenopathy, non-tender LUNGS: Clear to auscultation. Normal chest wall mechanics. No wheezes, rhonchi, or rales. CHEST: Port noted on the right anterior superior chest wall. HEART: Tachycardia, no murmurs, S1 normal and S2 normal ABDOMEN: abdomen soft, upper abdominal tenderness to palpation, normo-active bowel sounds, no masses, no rebound or guarding. BACK: Back is symmetrical on inspection and there is no deformity, no midline tenderness, no CVA tenderness. SKIN: no rashes and no bruising UPPER EXTREMITIES: upper extremities are grossly normal. FROM, nml pulses. LOWER EXTREMITIES: No pitting edema. FROM, nml pulses b/l. No calf tenderness. NEURO EXAM: Normal sensorium, cranial nerves II-XII grossly intact, normal speech, no gross weakness of arms, no gross weakness of legs. Course 0320: Past medical records reviewed. The patient was evaluated in room A10. A complete history and physical exam was performed. 0510: HR improved. Pt denies any worsening abdominal pain. 0618: Upon reevaluation, the patient is resting comfortably. I discussed laboratory and radiographic results with her and her daughter. They verbalized agreement of the treatment plan. The patient will be evaluated for further management and care. 0624: I reviewed the patient's case with Dr. Tovar, [facility] Hospitalist. She will evaluate the patient for further management. Administered Medications Allopurinol (Zyloprim) 100 mg PO QAM [facility] Stop: 12/23/18 09:44 Last Admin: 11/24/18 08:49 Dose: 100 mg Documented by: [id number] Admin: 11/23/18 10:52 Dose: 100 mg Documented by: [id number] Docusate Sodium (Colace) 200 mg PO BID AUREA Stop: 12/23/18 09:44 Last Admin: 11/24/18 20:53 Dose: 200 mg Documented by: [id number] Admin: 11/24/18 08:48 Dose: 200 mg Documented by: [id number] Admin: 11/23/18 20:34 Dose: 200 mg Documented by: [id number] Admin: 11/23/18 10:52 Dose: 200 mg Documented by: [id number] Enoxaparin Sodium (Lovenox) 40 mg SQ BID AUREA Stop: 12/24/18 08:59 Last Admin: 11/24/18 20:53 Dose: 40 mg Documented by: [id number] Admin: 11/24/18 09:04 Dose: 40 mg Documented by: [id number] Piperacillin Sod/Tazobactam (Sod 3.375 gm/ Dextrose) 115 mls @ 28.75 mls/hr IV Q8H AUREA; Protocol Stop: 11/25/18 13:59 Last Admin: 11/25/18 05:42 Dose: 28.8 mls/hr Documented by: [id number] Infusion: 11/25/18 01:40 Dose: 0 mls/hr Documented by: [id number] Admin: 11/24/18 21:35 Dose: 28.8 mls/hr Documented by: [id number] Infusion: 11/24/18 18:27 Dose: 0 mls/hr Documented by: [id number] Admin: 11/24/18 14:27 Dose: 28.8 mls/hr Documented by: [id number] Infusion: 11/24/18 11:07 Dose: 0 mls/hr Documented by: [id number] Admin: 11/24/18 07:07 Dose: 28.8 mls/hr Documented by: [id number] Infusion: 11/24/18 01:35 Dose: 0 mls/hr Documented by: [id number] Admin: 11/23/18 21:35 Dose: 28.8 mls/hr Documented by: [id number] Infusion: 11/23/18 17:45 Dose: 0 mls/hr Documented by: [id number] Admin: 11/23/18 13:39 Dose: 28.8 mls/hr Documented by: [id number] Insulin Aspart (Novolog Flexpen) 0 units SC ACHS [facility] Stop: 12/24/18 13:30 Last Admin: 11/24/18 21:18 Dose: Not Given Documented by: [id number] Cosigned by: [id number] Admin: 11/24/18 18:12 Dose: 5 units Documented by: [id number] Cosigned by: [id number] Admin: 11/24/18 14:33 Dose: Not Given Documented by: [id number] Cosigned by: [id number] Levothyroxine Sodium (Synthroid) 88 mcg PO DAILYBB [facility] Stop: 12/23/18 09:44 Last Admin: 11/25/18 05:42 Dose: 88 mcg Documented by: [id number] Admin: 11/24/18 06:07 Dose: 88 mcg Documented by: [id number] Admin: 11/23/18 10:52 Dose: 88 mcg Documented by: [id number] Nortriptyline HCl (Pamelor) 100 mg PO HS [facility] Stop: 12/23/18 20:59 Last Admin: 11/24/18 20:53 Dose: 100 mg Documented by: [id number] Admin: 11/23/18 20:33 Dose: 100 mg Documented by: [id number] Pantoprazole Sodium (Protonix) 40 mg PO QAM [facility] Stop: 12/23/18 09:44 Last Admin: 11/24/18 08:48 Dose: 40 mg Documented by: [id number] Admin: 11/23/18 10:53 Dose: 40 mg Documented by: [id number] Pregabalin (Lyrica) 75 mg PO TID [facility] Stop: 12/23/18 09:44 Last Admin: 11/24/18 20:53 Dose: 75 mg Documented by: [id number] Admin: 11/24/18 14:31 Dose: 75 mg Documented by: [id number] Admin: 11/24/18 08:55 Dose: 75 mg Documented by: [id number] Admin: 11/23/18 20:33 Dose: 75 mg Documented by: [id number] Admin: 11/23/18 13:41 Dose: 75 mg Documented by: [id number] Admin: 11/23/18 10:54 Dose: 75 mg Documented by: [id number] Thiamine HCl (Vitamin B-1) 100 mg PO DAILY [facility] Stop: 12/24/18 08:59 Last Admin: 11/24/18 08:59 Dose: Not Given Documented by: [id number] Trazodone HCl (Desyrel) 100 mg PO QPM [facility] Stop: 12/23/18 20:59 Last Admin: 11/24/18 20:53 Dose: 100 mg Documented by: [id number] Admin: 11/23/18 20:34 Dose: 100 mg Documented by: [id number] Triamterene/HCTZ (Maxzide 37.5/25mg) 1 tab PO DAILY [facility] Stop: 12/24/18 08:59 Last Admin: 11/24/18 08:49 Dose: 1 tab Documented by: [id number] Discontinued Medications Bacitracin (Bacitracin) Confirm Administered Dose 45 appln .ROUTE .STK-MED ONE Stop: 11/23/18 14:34 Last Admin: 11/23/18 15:07 Dose: 45 appln Documented by: [id number] Bupivacaine HCl (Marcaine 0.5% Mpf) Confirm Administered Dose 30 ml .ROUTE .STK- MED ONE Stop: 11/23/18 14:34 Last Admin: 11/23/18 15:07 Dose: 2 ml Documented by: [id number] Enoxaparin Sodium (Lovenox) 40 mg SQ Q24H [facility] Stop: 12/23/18 11:59 Last Admin: 11/23/18 12:45 Dose: Not Given Documented by: [id number] Enoxaparin Sodium (Lovenox) 40 mg SQ Q24H [facility] Stop: 12/23/18 20:59 Last Admin: 11/23/18 21:56 Dose: 40 mg Documented by: [id number] Sodium Chloride (Nss 1000ml) 1,000 mls @ 999 mls/hr IV .Q1H1M ONE Stop: 11/23/18 04:27 Last Infusion: 11/23/18 04:57 Dose: 0 mls/hr Documented by: [id number] Admin: 11/23/18 03:57 Dose: 999 mls/hr Documented by: [id number] Acetaminophen (Ofirmev) 1,000 mg in 100 mls @ 400 mls/hr IV NOW STA Stop: 11/23/18 04:15 Last Infusion: 11/23/18 04:37 Dose: 0 mls/hr Documented by: [id number] Admin: 11/23/18 04:17 Dose: 400 mls/hr Documented by: [id number] Magnesium Sulfate/Dextrose (Magnesium Sulfate / D5w) 1 gm in 100 mls @ 100 mls/hr IV ONE ONE Stop: 11/23/18 05:56 Last Infusion: 11/23/18 06:10 Dose: 0 mls/hr Documented by: [id number] Admin: 11/23/18 05:05 Dose: 100 mls/hr Documented by: [id number] Sodium Chloride (Nss 1000ml) 1,000 mls @ 999 mls/hr IV .Q1H1M ONE Stop: 11/23/18 05:57 Last Infusion: 11/23/18 06:10 Dose: 0 mls/hr Documented by: [id number] Admin: 11/23/18 05:06 Dose: 999 mls/hr Documented by: [id number] Cefepime HCl (Maxipime) 2,000 mg in 20 mls @ 5 mls/min IV NOW STA; Protocol Stop: 11/23/18 06:17 Last Admin: 11/23/18 06:36 Dose: 5 mls/min Documented by: [id number] Sodium Chloride (Nss 1000ml) 1,000 mls @ 999 mls/hr IV .Q1H1M ONE Stop: 11/23/18 07:14 Last Infusion: 11/23/18 09:02 Dose: 0 mls/hr Documented by: [id number] Admin: 11/23/18 06:36 Dose: 999 mls/hr Documented by: [id number] Vancomycin HCl 1,750 mg/ (Sodium Chloride) 535 mls @ 200 mls/hr IV NOW ONE Stop: 11/23/18 08:54 Last Infusion: 11/23/18 10:15 Dose: 0 mls/hr Documented by: [id number] Admin: 11/23/18 06:37 Dose: 200 mls/hr Documented by: [id number] Magnesium Sulfate/Dextrose (Magnesium Sulfate / D5w) 1 gm in 100 mls @ 100 m ls/hr IV ONE ONE Stop: 11/23/18 09:11 Last Infusion: 11/23/18 10:30 Dose: 0 mls/hr Documented by: [id number] Admin: 11/23/18 08:47 Dose: 100 mls/hr Documented by: [id number] Parenteral Electrolytes (Normosol-R) 1,000 mls @ 80 mls/hr IV .[id number] [facility] Stop: 12/23/18 09:44 Last Infusion: 11/24/18 08:47 Dose: 0 mls/hr Documented by: [id number] Infusion: 11/24/18 04:02 Dose: 0 mls/hr Documented by: [id number] Admin: 11/24/18 00:45 Dose: Not Given Documented by: [id number] Admin: 11/23/18 20:31 Dose: 80 mls/hr Documented by: [id number] Infusion: 11/23/18 20:31 Dose: 80 mls/hr Documented by: [id number] Infusion: 11/23/18 18:45 Dose: 80 mls/hr Documented by: [id number] Infusion: 11/23/18 18:30 Dose: 80 mls/hr Documented by: [id number] Infusion: 11/23/18 15:40 Dose: 0 mls/hr Documented by: [id number] Admin: 11/23/18 10:22 Dose: 150 mls/hr Documented by: [id number] Vancomycin HCl 1,500 mg/ (Sodium Chloride) 530 mls @ 200 mls/hr IV Q12H [facility]A; Protocol Stop: 11/25/18 15:59 Last Infusion: 11/24/18 07:11 Dose: 0 mls/hr Documented by: [id number] Admin: 11/24/18 04:02 Dose: 200 mls/hr Documented by: [id number] Infusion: 11/23/18 18:30 Dose: 0 mls/hr Documented by: [id number] Admin: 11/23/18 15:47 Dose: 200 mls/hr Documented by: [id number] Piperacillin Sod/Tazobactam (Sod 3.375 gm/ Dextrose) 115 mls @ 230 mls/hr IV ONE ONE; Protocol Stop: 11/23/18 10:14 Last Infusion: 11/23/18 11:00 Dose: 0 mls/hr Documented by: [id number] Admin: 11/23/18 10:22 Dose: 230 mls/hr Documented by: [id number] Thiamine HCl 100 mg/ Syringe 10 mls @ 2 mls/min IV QAM [facility] Stop: 12/24/18 08:59 Last Admin: 11/24/18 08:54 Dose: 2 mls/min Documented by: [id number] Thiamine HCl 200 mg/ Sodium (Chloride) 52 mls @ 208 mls/hr IV NOW STA Stop: 11/23/18 17:38 Last Infusion: 11/23/18 18:07 Dose: 0 mls/hr Documented by: [id number] Admin: 11/23/18 17:50 Dose: 208 mls/hr Documented by: [id number] Furosemide 20 mg/ Syringe 2 mls @ 4 mls/min IV NOW ONE Stop: 11/24/18 09:01 Last Admin: 11/24/18 09:05 Dose: 4 mls/min Documented by: [id number] Ioversol (Optiray 320 125ml) 125 ml IV ONCE PRN PRN Reason: Interaction Checking Stop: 11/27/18 05:26 Last Admin: 11/23/18 05:28 Dose: 113 ml Documented by: [id number] Ioversol (Optiray 320 125ml) 125 ml IV ONCE PRN PRN Reason: Interaction Checking Stop: 11/27/18 05:46 Last Admin: 11/23/18 05:47 Dose: 118 ml Documented by: [id number] Lidocaine HCl (Xylocaine 1% (Local)) Confirm Administered Dose 20 ml .ROUTE .STK-MED ONE Stop: 11/23/18 14:34 Last Admin: 11/23/18 15:08 Dose: 2 ml Documented by: [id number] Miscellaneous (Order Awaiting Action) 1 ea N/A QS [facility] Stop: 12/23/18 15:59 Last Admin: 11/24/18 07:25 Dose: Not Given Documented by: [id number] Admin: 11/24/18 00:45 Dose: Not Given Documented by: [id number] Admin: 11/23/18 16:20 Dose: Not Given Documented by: [id number] Potassium Chloride (Klor-Con M10) 20 meq PO Q3H [facility] Stop: 11/24/18 13:01 Last Admin: 11/24/18 16:25 Dose: 20 meq Documented by: [id number] Admin: 11/24/18 10:26 Dose: 20 meq Documented by: [id number] Admin: 11/24/18 07:28 Dose: 20 meq Documented by: [id number] Medical Decision Making Differential Diagnosis Differential diagnosis: Etiologies such as viral syndrome, otitis, pharyngitis, pneumonia, influenza, meningitis, urinary tract infection, sepsis, bacteremia, as well as others were entertained. Medical Records Attestation: I reviewed the patient's medical records. Home Medications Current Medication List: was personally reviewed by me Laboratory Data Attestation: I reviewed the patient's lab results. Result diagrams: 11/25/18 05:50 11/24/18 05:00 Lab Results 11/23/18 11/23/18 11/23/18 Range/Units 03:49 03:49 03:49 WBC 10.53 (4.8-10.8) K/uL RBC 3.76 L (4.2-5.4) M/uL Hgb 10.2 L (12.0-16.0) g/dL Hct 31.8 L (37-47) % MCV 84.6 (80-100) fL MCH 27.1 (25-34) pg MCHC 32.1 (32-36) g/dL RDW Std Deviation 60.0 H (36.4-46.3) fL RDW Coeff of Harish 19.6 H (11.5-14.5) % Plt Count 253 (130-400) K/uL MPV 9.7 (7.4-10.4) fL Immature Gran % (Auto) 0.5 % Neut % (Auto) 91.6 % Lymph % (Auto) 6.5 % [place] % (Auto) 0.8 % Eos % (Auto) 0.4 % Baso % (Auto) 0.2 % Immature Gran # (Auto) 0.05 H (0.00-0.02) K/uL Neut # (Auto) 9.66 H (1.4-6.5) K/uL Lymph # (Auto) 0.68 L (1.2-3.4) K/uL [place] # (Auto) 0.08 L (0.11-0.59) K/uL Eos # (Auto) 0.04 (0-0.5) K/uL Baso # (Auto) 0.02 (0-0.2) K/uL Sodium 138 (136-145) mmol/L Potassium 4.0 (3.5-5.1) mmol/L Chloride 101 (98-107) mmol/L Carbon Dioxide 29 (21-32) mmol/L Anion Gap 8.0 (3-11) BUN 12 (7-18) mg/dl Creatinine 0.76 (0.6-1.2) mg/dl Est Cr Clr Drug Dosing 82.8 ml/min Est GFR ( Amer) 95.4 Est GFR (Non-Af Amer) 82.3 BUN/Creatinine Ratio 15.5 (10-20) Glucose 146 H (70-99) mg/dl POC Lactic Acid Yon (0.90-1.70) mmol/L Calcium 8.5 (8.5-10.1) mg/dl Magnesium 1.6 L (1.8-2.4) mg/dl Total Bilirubin 0.4 (0.2-1) mg/dl AST 26 (15-37) U/L ALT 13 (12-78) U/L Alkaline Phosphatase 215 H (45-117) U/L Troponin I < 0.015 (0-0.045) ng/ml Total Protein 7.4 (6.4-8.2) gm/dl Albumin 2.3 L (3.4-5.0) gm/dl Globulin 5.1 H (2.5-4.0) gm/dl Albumin/Globulin Ratio 0.5 L (0.9-2) Lipase 190 (73-393) U/L Procalcitonin 0.92 H (0-0.5) ng/ml TSH 3.910 (0.300-4.500) uIu/ml Urine Color Urine Appearance (Clear) Urine pH (4.5-7.5) Ur Specific [place] (1.000-1.030) Urine Protein (Negative) Urine Glucose (UA) (Negative) Urine Ketones (Negative) Urine Blood (Negative) Urine Nitrite (Negative) Urine Bilirubin (Negative) Urine Urobilinogen (Negative) Ur Leukocyte Esterase (Negative) Urine WBC (Auto) (0-5) /hpf Urine RBC (Auto) (0-4) /hpf U Hyaline Cast (Auto) (0-5) /lpf U Epithel Cells (Auto) (0-5) /lpf Urine Bacteria (Auto) (Negative) Influenza Type A (PCR) (Neg) Influenza Type B (PCR) (Neg) 11/23/18 11/23/18 11/23/18 Range/Units 03:59 06:36 07:04 WBC (4.8-10.8) K/uL RBC (4.2-5.4) M/uL Hgb (12.0-16.0) g/dL Hct (37-47) % MCV (80-100) fL MCH (25-34) pg MCHC (32-36) g/dL RDW Std Deviation (36.4-46.3) fL RDW Coeff of Harish (11.5-14.5) % Plt Count (130-400) K/uL MPV (7.4-10.4) fL Immature Gran % (Auto) % Neut % (Auto) % Lymph % (Auto) % [place] % (Auto) % Eos % (Auto) % Baso % (Auto) % Immature Gran # (Auto) (0.00-0.02) K/uL Neut # (Auto) (1.4-6.5) K/uL Lymph # (Auto) (1.2-3.4) K/uL [place] # (Auto) (0.11-0.59) K/uL Eos # (Auto) (0-0.5) K/uL Baso # (Auto) (0-0.2) K/uL Sodium (136-145) mmol/L Potassium (3.5-5.1) mmol/L Chloride (98-107) mmol/L Carbon Dioxide (21-32) mmol/L Anion Gap (3-11) BUN (7-18) mg/dl Creatinine (0.6-1.2) mg/dl Est Cr Clr Drug Dosing ml/min Est GFR ( Amer) Est GFR (Non-Af Amer) BUN/Creatinine Ratio (10-20) Glucose (70-99) mg/dl POC Lactic Acid Yon 2.78 H 3.02 H (0.90-1.70) mmol/L Calcium (8.5-10.1) mg/dl Magnesium (1.8-2.4) mg/dl Total Bilirubin (0.2-1) mg/dl AST (15-37) U/L ALT (12-78) U/L Alkaline Phosphatase (45-117) U/L Troponin I (0-0.045) ng/ml Total Protein (6.4-8.2) gm/dl Albumin (3.4-5.0) gm/dl Globulin (2.5-4.0) gm/dl Albumin/Globulin Ratio (0.9-2) Lipase (73-393) U/L Procalcitonin (0-0.5) ng/ml TSH (0.300-4.500) uIu/ml Urine Color Yellow Urine Appearance Clear (Clear) Urine pH 8.0 H (4.5-7.5) Ur Specific [place] > 1.045 H (1.000-1.030) Urine Protein Negative (Negative) Urine Glucose (UA) Negative (Negative) Urine Ketones Negative (Negative) Urine Blood Negative (Negative) Urine Nitrite Negative (Negative) Urine Bilirubin Negative (Negative) Urine Urobilinogen Negative (Negative) Ur Leukocyte Esterase Trace H (Negative) Urine WBC (Auto) 5-10 H (0-5) /hpf Urine RBC (Auto) 0-4 (0-4) /hpf U Hyaline Cast (Auto) 1-5 (0-5) /lpf U Epithel Cells (Auto) >30 H (0-5) /lpf Urine Bacteria (Auto) 1+ H (Negative) Influenza Type A (PCR) (Neg) Influenza Type B (PCR) (Neg) 11/23/18 Range/Units 08:07 WBC (4.8-10.8) K/uL RBC (4.2-5.4) M/uL Hgb (12.0-16.0) g/dL Hct (37-47) % MCV (80-100) fL MCH (25-34) pg MCHC (32-36) g/dL RDW Std Deviation (36.4-46.3) fL RDW Coeff of Harish (11.5-14.5) % Plt Count (130-400) K/uL MPV (7.4-10.4) fL Immature Gran % (Auto) % Neut % (Auto) % Lymph % (Auto) % [place] % (Auto) % Eos % (Auto) % Baso % (Auto) % Immature Gran # (Auto) (0.00-0.02) K/uL Neut # (Auto) (1.4-6.5) K/uL Lymph # (Auto) (1.2-3.4) K/uL [place] # (Auto) (0.11-0.59) K/uL Eos # (Auto) (0-0.5) K/uL Baso # (Auto) (0-0.2) K/uL Sodium (136-145) mmol/L Potassium (3.5-5.1) mmol/L Chloride (98-107) mmol/L Carbon Dioxide (21-32) mmol/L Anion Gap (3-11) BUN (7-18) mg/dl Creatinine (0.6-1.2) mg/dl Est Cr Clr Drug Dosing ml/min Est GFR ( Amer) Est GFR (Non-Af Amer) BUN/Creatinine Ratio (10-20) Glucose (70-99) mg/dl POC Lactic Acid Yon (0.90-1.70) mmol/L Calcium (8.5-10.1) mg/dl Magnesium (1.8-2.4) mg/dl Total Bilirubin (0.2-1) mg/dl AST (15-37) U/L ALT (12-78) U/L Alkaline Phosphatase (45-117) U/L Troponin I (0-0.045) ng/ml Total Protein (6.4-8.2) gm/dl Albumin (3.4-5.0) gm/dl Globulin (2.5-4.0) gm/dl Albumin/Globulin Ratio (0.9-2) Lipase (73-393) U/L Procalcitonin (0-0.5) ng/ml TSH (0.300-4.500) uIu/ml Urine Color Urine Appearance (Clear) Urine pH (4.5-7.5) Ur Specific [place] (1.000-1.030) Urine Protein (Negative) Urine Glucose (UA) (Negative) Urine Ketones (Negative) Urine Blood (Negative) Urine Nitrite (Negative) Urine Bilirubin (Negative) Urine Urobilinogen (Negative) Ur Leukocyte Esterase (Negative) Urine WBC (Auto) (0-5) /hpf Urine RBC (Auto) (0-4) /hpf U Hyaline Cast (Auto) (0-5) /lpf U Epithel Cells (Auto) (0-5) /lpf Urine Bacteria (Auto) (Negative) Influenza Type A (PCR) Neg for Influ A (Neg) Influenza Type B (PCR) Neg for Influ B (Neg) Imaging Data Attestation: I personally reviewed and interpreted this imaging study as follows: My Impression: XR abdomen 2V with PA chest: Pt is rotated. Chest - no c ardiomegaly. no effusion. no focal consolidation. Port noted in right chest. Abdomen - scattered air and stool. no definite SBO. no free air. surgical clips noted. Radiologist's Impression: Radiology results as stated below per my review and the [facility] radiologist's interpretation: CTA CHEST: No evidence for pulmonary embolism. Scattered centrilobular emphysema noted. Irregular linear changes with calcification at the right apex is similar in appearance to the examination dated 08/03/2018. There are multiple subcentimeter pulmonary nodules involving the right upper lobe (for example: series 4; images 138-139, 166 and 193). There is nodular density involving the medial right upper lobe along the major fissure (series 4; image 155). Recommend short-term interval follow-up to ensure stability over time. Subtle hematogenous spread of neoplasm is also a consideration. Right internal jugular approach portacatheter extends into the superior vena cava. The thoracic aorta and cardiac chambers demonstrate no significant interval change. No pericardial effusion. No developing mediastinal adenopathy identified at this time. Radiologist: Pato Pacheco MD Study ready at 05:54 and initial results transmitted at 06:10 CT ABDOMEN & PELVIS With Contrast: There are multiple new abnormal hypoattenuating areas scattered throughout the liver consistent with advancing metastatic disease from the previous examination dated 08/03/2018. The abnormal soft tissue density in the region of the left celiac axis, superior and posterior to the pancreatic tail, is markedly increased in size from the previous examination, now measuring 5.7 x 4 cm from approximately3.6 x 2.4 cm. The mass now abuts and probably involves the left adrenal gland consistent with advancing retroperitoneal lymphadenopathy. 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 Cholecystectomy. The spleen, left adrenal gland and kidneys demonstrate no significant abnormality. No bowel obstruction. No free intraperitoneal fluid or pneumoperitoneum. The bladder is moderately distended without significant abnormality. Status post hysterectomy. No acute osseous or significant overlying soft tissue abnormality. Radiologist: Pato Pacheco MD Study ready at 05:48 and initial results transmitted at 05:57 ECG Data Attestation: I personally reviewed and interpreted this ECG as follows: Indication: tachycardia Rate (beats per minute): 135 Rhythm: sinus tachycardia Findings: + other (Normal axis.), + Q waves (Lead III - no other ischemic change), + RBBB and + prolonged QT Comparison ECG Date: from (08/02/18) Change: no significant change Blood Pressure Blood Pressure Findings: Normal blood pressure Blood Pressure Disposition: did not require urgent referral MDM Narrative Pt here with possible evolving sepsis in the setting of known cancer dx and chemo treatment. Pt currently in an off week and not neutropenic. Pt HR improved with IVF and treatment of fever. Cultures drawn and sent. Pt sent for CT angio chest, and abd/pelvis to evaluate for infection, PE, other etiology of current condition. Pt started on vanc and cefepime while investigating potential source. No known sick contacts. No evidence of cellulitis at port site. Pt states port has been working well. CT shows worsening metastatic disease. BP stable in the ER while awaiting admission. One BP low but then came right back up. No leukocytosis, however procalcitonin elevated. Lactic acid mildly elevated also. Pt made aware of all results and need for additional inpatient mgmt. Pt's oncologist at [facility]. LFT's without any significant change given report of primary cholangiocarcinoma. Discussed with her possible etiology of fever and differential of possible infection. Pt did receive 30ml/kg of IVF. Case discussed with hospitalist for additional evaluation. Impression & Plan Sepsis, Fever, Metastatic disease, Hypomagnesemia Discharge Plan Visit Data *Final* Discharge Date/Time: 11/23/18 09:02 Chief Complaint: Illness Stated Complaint: [facility] ED Provider: Roshni Herman Discharge Problem: Sepsis, Fever, Metastatic disease, Hypomagnesemia Patient Disposition: Admitted As Inpatient Discharge Instructions Interventions: ED Discharge Assessment Last Done: 11/23/18 09:02 Discharge Problem: Sepsis Qualifiers: Sepsis type: sepsis due to unspecified organism Sepsis acute organ dysfunction status: without acute organ dysfunction Qualified Code(s): A41.9 - Sepsis, unspecified organism Fever Qualifiers: Fever type: unspecified Qualified Code(s): R50.9 - Fever, unspecified The scribe's documentation has been prepared under my direction and personally reviewed by me in its entirety. I confirm that the note above accurately reflects all work, treatment, procedures, and medical decision making performed by me.
--- NOTE | 2018-11-23 07:30 | History & Physical Report ---
Date of Service November 23, 2018 Assessment & Plan (1) Severe sepsis: Borderline septic shock. Following 3 L of NS in the ER her SBP was about 90 supine and in the low 80s sitting at bedside. I am concerned she potentially could need pressor agents. Therefore, will admit to ICU; care d/w Dr Patel, ICU attending. Source for her sepsis - port infection vs biliary in nature (although LFTs are unchanged from prior and she is not having RUQ abdominal pain) vs UTI vs other. Blood/urine cx's sent. Will continue IV vancomycin to cover her port; change cefepime to zosyn. Check flu PCR to be complete but doubt this is influenza. Continue copious IV hydration. Patient was on steroids 1-2 weeks ago for gout attack but does NOT take steroids chronically; will defer on stress dose steroids for now. Will defer on checking cortisol level since it may be abnormal any way due to recent steroid use. Recheck lactate at 11am. Present on Admission?: Yes (2) Cholangiocarcinoma: Patient is followed by Dr Guy at [facility] in [place]. She is taking xeloda twice daily in a week on/week off cycle. Her imaging today appears to show progressive disease but there is no signs of biliary tract obstruction on CT. LFTs are stable with exception of mildly elevated alk phos. She last saw Dr Guy about 1 month ago. Present on Admission?: Yes (3) Hypomagnesemia: Was given 1 gm mag sulfate in ER. Will give an additional gram and repeat her mag level at 11am. (4) Hypothyroidism: TSH is wnl. Cont synthroid. (5) GERD (gastroesophageal reflux disease): Cont PPI (6) Hypertension: (7) Chronic obstructive pulmonary disease: No exacerbation at this time. Cont albuterol prn. (8) Neuropathy: Cont lyrica. Cont nortriptyline. (9) Gout: No active flares at this time. Cont allopurinol prophylaxis. (10) DVT prophylaxis: lovenox 40mg daily family updated at bedside History of Present Illness Chief Complaint: rigors/chills Primary Care Provider: Ace Ruvalcaba MD 63yo female with known cholangiocarcinoma who presents with rigors/cold chills that started about 0100 this am. This awoke her from sleep. She had an uneventful day yesterday. She apparently had undergone 3 rounds of IV chemotherapy under the direction of an oncologist at [facility] by the name of Dr. Chance Guy. She had significant side effects from the chemo and was changed to an oral chemo agent about 1 month ago. Her cycle for the oral chemotherapy is 7 days on and 7 days off. She has a central port in the right chest and sometime last week, when she had a routine flush from the home health nurse, it sounds as if the IV infiltrated and the port was swollen and red. Her right arm was swollen for a few days then it resolved. The port is no longer swollen/red. She also mentions 2 weeks of right ear pain and 2 days of left-sided abdominal pain. Eating food does NOT make the stomach pain worse. Appetite has been normal. No recent weight loss. She does not take chronic steroids. No sick contacts. No travel last 1-2 weeks. No tick bites. Allergies Allergy/AdvReac Type Severity Reaction Status Date / Time metoclopramide Allergy Intermediate FACIAL AND Verified 11/23/18 03:54 FEET SWELLING, BONE PAIN silicone Allergy Intermediate SKIN MIRANDA Verified 11/23/18 03:54 celecoxib Allergy Mild RASH Verified 11/23/18 03:54 atorvastatin AdvReac Intermediate headaches Verified 11/23/18 03:54 Home Medications Home Medications Medication Instructions Recorded Confirmed Type albuterol sulfate [ProAir HFA] 2 puff INHALATION QID PRN 12/14/17 11/23/18 History allopurinol 100 mg PO QAM 12/14/17 11/23/18 History levothyroxine 88 mcg PO QAM 12/14/17 11/23/18 History nortriptyline 100 mg PO HS 12/14/17 11/23/18 History omeprazole 20 mg PO QAM 12/14/17 11/23/18 History trazodone 100 mg PO QPM 12/14/17 11/23/18 History docusate sodium [Stool Softener] 200 mg PO BID 05/19/18 11/23/18 History triamterene 37.5 1 tab PO DAILY #90 tab 09/08/18 11/23/18 Rx mg-hydrochlorothiazide 25 mg tablet lorazepam 0.5 mg PO DAILY PRN 09/09/18 11/23/18 History oxycodone 5 mg PO Q8H PRN 09/09/18 11/23/18 History pregabalin [Lyrica] 75 mg PO TID 09/09/18 11/23/18 History prochlorperazine maleate 10 mg PO Q6H PRN 09/09/18 11/23/18 History tramadol-acetaminophen 1 tab PO Q8H PRN 09/09/18 11/23/18 History Unknown Chemo Medication 1 dose PO BIDM 11/23/18 11/23/18 History cinnamon bark [Cinnamon] 1,000 mg PO DAILY 11/23/18 11/23/18 History Past Med/Surg History Family History Brother Family history of lung cancer Sister Family history of lung cancer sister Family history of kidney cancer Family history of skin cancer Family history of breast cancer Family history of uterine cancer Family history of ovarian cancer Mother , age 89 "old age" No problems noted. 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[facility] [employer] Feels Safe at Home: Yes Safety Concerns: Feels Safe At This Time Smoking Status: Former smoker Tobacco Type: cigarettes ; Cigarettes Per Day: QUIT 15 YR AGO, PREVIOUS 1/2 PPD X 25 YR ; Second Hand Exposure: No ; Hx Alcohol Use: No Hx Substance Use: No Review of Systems Constitutional: + chills; no anorexia and no weight loss Eyes: no worsening vision Ear, Nose, Mouth, Throat: + ear pain (right); no nasal congestion and no sore throat Respiratory: no cough and no dyspnea Cardiovascular: no chest pain and no edema Gastrointestinal: + abdominal pain; no vomiting, no diarrhea/loose stools and no blood in stools Genitourinary: no dysuria Musculoskeletal: no joint pain Integumentary: no rash Neurologic: + numbness (feet/hands) Psychiatric: no depression Endocrine: no diabetes Hematologic / Lymphatic: no easy bruising Physical Exam Constitutional: + ill appearing and + altered mental status (modest; falling asleep at times during the encounter); no acute distress Eyes: PERRL (lens implants b/l) ENMT: Ears: no external ear abnormality, no EAC abnormality and no TM abnormality Mouth: + dry oral mucous membranes; no oral mucosal abnormality Neck: trachea midline, no thyromegaly Respiratory: normal respiratory effort Auscultation: + crackles (right base, slight, "dry") Cardiovascular: Rate/Rhythm: regular rhythm and + tachycardic Heart Sounds: normal S1 and normal S2; no murmur Vessels: posterior tibial pulses present (1+) and dorsalis pedis pulses present (1+); no JVD Chest (Breasts): Additional Comments: right a-port - clean, nontender, no erythema Gastrointestinal (Abdomen): Inspection/Auscultation: normal bowel sounds; abdomen not distended Percussion/Palpation: + abdomen tender (LLQ - slight) and abdomen soft; abdomen not rigid and no hepatosplenomegaly Musculoskeletal: no tenderness w/ palpation over tspine or lspine; scar over lspine Skin: no rashes, warm and dry Neurologic: deep tendon reflexes 2+ bilaterally; no focal motor deficits Psychiatric: Orientation: alert and oriented x 3 Lymphatic: + lymphadenopathy (?supraclavicular node on left) Results & Data Vital Signs (Past 12 Hours) Vital Signs Temp Pulse Pulse Resp BP BP Pulse Ox 11/23/18 06:00 110 H 24 103/55 L 93 11/23/18 05:25 37.6 C H 11/23/18 05:00 119 H 29 H 132/68 95 11/23/18 04:19 113 H 25 H 113/72 91 11/23/18 03:30 133 H 20 92/67 L 93 11/23/18 03:15 39.0 C H 136 H 24 126/71 93 11/23/18 03:12 130 H 20 129/72 92 Laboratory Results Laboratory Results - last 24 hr 11/23/18 11/23/18 11/23/18 03:49 03:49 03:49 WBC 10.53 RBC 3.76 L Hgb 10.2 L Hct 31.8 L MCV 84.6 MCH 27.1 MCHC 32.1 RDW Std Deviation 60.0 H RDW Coeff of Harish 19.6 H Plt Count 253 MPV 9.7 Immature Gran % (Auto) 0.5 Neut % (Auto) 91.6 Lymph % (Auto) 6.5 [place] % (Auto) 0.8 Eos % (Auto) 0.4 Baso % (Auto) 0.2 Immature Gran # (Auto) 0.05 H Neut # (Auto) 9.66 H Lymph # (Auto) 0.68 L [place] # (Auto) 0.08 L Eos # (Auto) 0.04 Baso # (Auto) 0.02 Sodium 138 Potassium 4.0 Chloride 101 Carbon Dioxide 29 Anion Gap 8.0 BUN 12 Creatinine 0.76 Est Cr Clr Drug Dosing 82.8 Est GFR ( Amer) 95.4 Est GFR (Non-Af Amer) 82.3 BUN/Creatinine Ratio 15.5 Glucose 146 H POC Lactic Acid Yon Calcium 8.5 Magnesium 1.6 L Total Bilirubin 0.4 AST 26 ALT 13 Alkaline Phosphatase 215 H Troponin I < 0.015 Total Protein 7.4 Albumin 2.3 L Globulin 5.1 H Albumin/Globulin Ratio 0.5 L Lipase 190 Procalcitonin 0.92 H TSH 3.910 Urine Color Urine Appearance Urine pH Ur Specific [place] Urine Protein Urine Glucose (UA) Urine Ketones Urine Blood Urine Nitrite Urine Bilirubin Urine Urobilinogen Ur Leukocyte Esterase Urine WBC (Auto) Urine RBC (Auto) U Hyaline Cast (Auto) U Epithel Cells (Auto) Urine Bacteria (Auto) 11/23/18 11/23/18 11/23/18 03:59 06:36 07:04 WBC RBC Hgb Hct MCV MCH MCHC RDW Std Deviation RDW Coeff of Harish Plt Count MPV Immature Gran % (Auto) Neut % (Auto) Lymph % (Auto) [place] % (Auto) Eos % (Auto) Baso % (Auto) Immature Gran # (Auto) Neut # (Auto) Lymph # (Auto) [place] # (Auto) Eos # (Auto) Baso # (Auto) Sodium Potassium Chloride Carbon Dioxide Anion Gap BUN Creatinine Est Cr Clr Drug Dosing Est GFR ( Amer) Est GFR (Non-Af Amer) BUN/Creatinine Ratio Glucose POC Lactic Acid Yon 2.78 H 3.02 H Calcium Magnesium Total Bilirubin AST ALT Alkaline Phosphatase Troponin I Total Protein Albumin Globulin Albumin/Globulin Ratio Lipase Procalcitonin TSH Urine Color Yellow Urine Appearance Clear Urine pH 8.0 H Ur Specific [place] > 1.045 H Urine Protein Negative Urine Glucose (UA) Negative Urine Ketones Negative Urine Blood Negative Urine Nitrite Negative Urine Bilirubin Negative Urine Urobilinogen Negative Ur Leukocyte Esterase Trace H Urine WBC (Auto) 5-10 H Urine RBC (Auto) 0-4 U Hyaline Cast (Auto) 1-5 U Epithel Cells (Auto) >30 H Urine Bacteria (Auto) 1+ H Diagnostic Findings 1. CTA chest: IMPRESSION: 1. No evidence of pulmonary thromboembolic disease. 2. Postoperative changes from prior left lower lobectomy. 3. Moderate emphysema with unchanged scattered subtle tree-in-bud nodules suggestive of a chronic bronchiolitis. 4. Development of several fissural nodules noted adjacent to the superior aspect of the right major fissure measuring up to 5 mm suggestive of lymph nodes. Attention at follow-up recommended. Additional new 4 mm solid nodule of the basal right lower lobe. 2. CT abd/pelvis: IMPRESSION: 1. Progressive neoplastic change involving the liver, upper abdominal and retroperitoneal adenopathy as described,. 2. The appearance is consistent with that of progressive neoplastic change. 3. Nonobstructive bowel pattern. EKG - my reading - sinus tach, RBBB, minimal NS ST changes Code Status & VTE Plan Code Status DNR - this was discussed in presence of daughter VTE Prophylaxis Plan VTE Prophylaxis will be ordered: Yes Critical Care Time Critical Care Time: Yes Total Critical Care Time: 60 PG Care Time/CCT Total # of Minutes Spent Total Time Spent with Patient: Total time spent is greater than 50% in coordination of care (as documented) at patient's floor/unit and/or counseling patient: Critical Care Time: Yes Total Critical Care Time: 60 (1) Hypothyroidism Hypothyroidism type: acquired Qualified Code(s): E03.9 - Hypothyroidism, unspecified (2) Chronic obstructive pulmonary disease COPD type: unspecified COPD Qualified Code(s): J44.9 - Chronic obstructive pulmonary disease, unspecified (3) GERD (gastroesophageal reflux disease) Esophagitis presence: esophagitis presence not specified Qualified Code(s): K21.9 - Gastro-esophageal reflux disease without esophagitis (4) Hypertension Hypertension type: essential hypertension Qualified Code(s): I10 - Essential (primary) hypertension (5) Gout Gout site: unspecified site Gout etiology: unspecified cause Chronicity: unspecified Qualified Code(s): M10.9 - Gout, unspecified
[2018-11-23 09:00] LABS: Influenza A virus by PCR Neg for Influ A (Neg); Influenza B virus by PCR Neg for Influ B (Neg)
[2018-11-23] MEDS ORDERED: ICU PROTOCOL FOR HYPERGLYCEMIA PRN (09:28)
[2018-11-23] MEDS ORDERED: IPRATROPIUM BROMIDE NEB SOLN 0.02% 2.5 ML VIAL INH PRN (09:28)
[2018-11-23] MEDS ORDERED: OXYCODONE HCL IR 5 MG TAB (IMMEDIATE RELEASE) PO PRN (09:28)
[2018-11-23] MEDS ORDERED: ALBUTEROL HFA 8 GM INHALER INH PRN (09:28)
[2018-11-23] MEDS ORDERED: LEVALBUTEROL HCL 0.63 MG/3 ML NEB INH PRN (09:28)
[2018-11-23] MEDS ORDERED: PIPERACILL/TAZOBAC CONSULT ACTIVE PRN (09:28)
[2018-11-23] MEDS ORDERED: PIPERACILLIN/TAZOBACTAM 3.375 GM in DEXTROSE 5% 100 ML IV ONE (09:45)
--- NOTE | 2018-11-23 10:17 | Pharmacy Report ---
Pharmacy Abx Initial Consult - Date of Service November 23, 2018 - Pharmacy Dosing Scope Date of Consult: 11/23 Consultation requested by: Dr. Rubio Pharmacy is consulted to initiate vancomycin/zosyn IV dosing therapy, order appropriate labs and adjust drug dose/frequency. - Subjective The patient is a 63 year old F admitted on 11/23/18 08:12. - Objective Height: 5 ft 6 in Weight: 88.7 kg Vital Signs (Past 12hrs): Vital Signs Temp Pulse Pulse Resp BP BP Pulse Ox 11/23/18 09:28 36.8 C 96 H 98 H 18 97/60 L 97 11/23/18 08:48 104 H 21 100/52 L 96 11/23/18 08:06 118 H 19 99/57 L 95 11/23/18 06:00 110 H 24 103/55 L 93 11/23/18 05:25 37.6 C H 11/23/18 05:00 119 H 29 H 132/68 95 11/23/18 04:19 113 H 25 H 113/72 91 11/23/18 03:30 133 H 20 92/67 L 93 11/23/18 03:15 39.0 C H 136 H 24 126/71 93 11/23/18 03:12 130 H 20 129/72 92 Lab Results (24hrs): Laboratory Tests (24 Hours) 11/23/18 11/23/18 11/23/18 03:49 03:49 03:49 WBC 10.53 Neut # (Auto) 9.66 H Creatinine 0.76 Est Cr Clr Drug Dosing 82.8 Procalcitonin 0.92 H Micro Results: 11/23/18 06:36 Urine Culture - Pending Urine,Clean Catch 11/23/18 03:49 Aerobic Blood Culture - Pending Blood Anaerobic Blood Culture - Pending 11/23/18 04:28 Aerobic Blood Culture - Pending Blood Anaerobic Blood Culture - Pending - Risk Factors for Resistance * Immunocompromised (chronic steroid therapy, chemotherapy, immunomodulators) - Assessment & Plan Assessment 63 year old F with PMH including cholangiocarcinoma- currently on oral chemotherapy with 7 days on/7day off schedule, this is an off week. Patient presented to the ED with complaints of shaking, developed mild abdominal pain yesterday. Patient febrile in ED with tmax 39c, normal white count, neut e levated. Per physician notes patient reports redness swelling of chest port last week which has resolved. Starting on empiric vancomycin/zosyn for possible infection. Plan Vancomycin IV * Estimated PK Parameters: Vdf 0.7, Parrish 0.7295 hr-1, t1/2 9.5 hr * Loading dose: 1750 mg (20 mg/kg) * Maintenance dose: 1500 mg IV (17 mg/kg) every 12 hours * Goal trough level for 15-20 mcg/mL * Trough ordered for 11/25@0330 Piperacillin/tazobactam * 3.375 g bolus administered over 30 minutes, then 3.375 g IV extended infusion every 8 hours for CrCl greater than 20 mL/min Pharmacy will continue to follow and will adjust dose/frequency as necessary. Thank you.
[2018-11-23] MEDS: NORMOSOL-R 1,000 ML IV SCH ×2 (10:22→20:31)
--- NOTE | 2018-11-23 10:47 | Critical Care Consultation ---
Date of Consultation November 23, 2018 Assessment & Plan (1) Severe sepsis: Reason Critically Ill: Yessica is a 63-year-old female with a past medical history of gout, hypothyroid, hypertension, hyperlipidemia, GERD, prediabetes, lung carcinoma status post left lower lobe resection, and cholangiocarcinoma who presents with febrile rigors and who has been admitted to the intensive care unit for sepsis. Neuro - [facility] ICU: Negative Analgesia: Oxycodone 5 mg p.o. every 8 hours as needed Continue nortriptyline 100 mg p.o. nightly Cardiac - Hypertension Hold extremity hearinghydrochlorothiazide in the setting of hypotension No history of coronary artery disease Respiratory - SPO2 greater than 88% on room air, no tachypnea on arrival to unit History of left lower lobectomy without functional deficit CT chest shows no evidence of pulmonary emboli or pneumonia GI - Type II diabetic diet Cholangiocarcinoma with metastasis to liver Previously on 3 rounds of IV chemotherapy, converted to oral chemo 7 days on 7 days off with Xeloda 1500 mg twice daily. Hold chemotherapeutic agents in the setting of sepsis and infection No acute GI concerns today, continue CBC daily RENAL/LYTES - Sodium 138, potassium 4.0, chloride 101, carbon dioxide 29 Creatinine at baseline, 0.76 today Glucose 146 on admit CMP daily Replace electrolytes as needed per protocol History of gout: Continue LINE WELDER allopurinol 10 mg every morning - Bacteriuria - No symptoms of UTI, UA with 1+ bacteria and leukocyte esterase -Urine reflex to culture, UTI covered with sepsis antibiotics as below ENDO - Prediabetes with neuropathy Glucose 146 on admission, diet controlled prior to admission ICU hyperglycemia protocol, SSI Continue pregabalin 75 mg 3 times daily BMP as above Hypothyroidism Continue Synthroid 88 mcg p.o. daily HEME - No leukocytosis, hemoglobin 10.2 CBC daily ID - Sepsis 2/2 CLABSI of right port Status post 3 L crystalloid resuscitation in the emergency department Blood cultures drawn from port positive for gram-negative bacilli at less than 12 hours Patient given empiric cefepime and vancomycin in emergency department, converted to Vanco Zosyn on transfer Lactate 3.0 Continue vancomycin every 12 hours, Zosyn every 8 hours pending culture results MRSA swab negative. Report not currently required for patient's oncologic treatment. Has been using the port for hydration and convenience. Surgical consult for port removal. Procalcitonin 0.92, morning repeat pending Normosol 150 cc/h INTEGUMENTARY - Right port infection as above, no other acute skin findings LINES/IV ACCESS - PIVs intact. Right port pending removal DVT PROPHYLAXIS - Lovenox 40 mg subcu daily Thank you for allowing us to be part of this patient's care. Please refer to Dr. Patel's documentation for any further recommendations. (2) S/P JAZZY-BSO: (3) S/P right knee arthroscopy: (4) Leukocytosis: (5) Metastatic cancer: (6) Hypertension: (7) Hyperlipidemia: (8) Gout: (9) GERD (gastroesophageal reflux disease): (10) Hypothyroidism: (11) History of lung cancer: (12) Liver cancer: (13) DVT prophylaxis: (14) Type II diabetes mellitus: Supervising Physician Co-Signing Physician Notes Dr. Jeter was resident physician during care of patient. I separately evaluated patient for webster portions of the history and the exam. I was present during the critical portion of medical decision making, and I discussed the case with the resident. I generally agree with the findings and plan. Gram-negative sepsis with most likely source is permacath. Permacath blood culture turn positive in approximately 6 hours from draw. General surgery has subsequently remove the catheter and we will continue line free holiday. I have personally spent 55 minutes of critical care time in the direct management of this patient. This is a life/limb threatening event. This includes time spent evaluating patient, direct bedside care, chart review, placing orders, interpretation of diagnostic studies, discussion with consultants, patient, and/or family members regarding treatment decisions, as well as other required patient management activities. This time is exclusive of all separately billable procedures, and teaching time and separate from and in addition to any other critical care service time. History of Present Illness Reason for Consultation: Sepsis Requesting Physician: Salvatore Rubio Attending Physician: Salvatore Rubio History of Present Illness Delmar is a 63-year-old female with a past medical history of gout, hypothyroid, hypertension, hyperlipidemia, GERD, prediabetes, anxiety/depression, left lower lung lobectomy secondary to cancer without need for adjuvant chemotherapy, and metastatic cholangiocarcinoma previously on IV chemotherapy converted to oral who presents with fever, hypotension, and shaking chills for 1 day. She has a right port which is been used for IV chemotherapy in the past, following conversion to oral she has been using the port for hydration. She reports over the weekend on Tuesday her port infiltrated and suddenly became painful, red, warm and like it had a "blister" on it. She also had severe pain in her right upper arm and shoulder and had difficulty moving her right arm due to the pain. Her port was replaced at that time and she reports her pain and discomfort in her arm and shoulder completely resolved. Swelling and redness gradually went down over the next few days. She also endorses 2 to 3 days of left-sided flank pain prior to admission. She is not sure what her temperature was 1 EMS was called due to her episode of shaking chills, believes it was around 99 F. She denies abdominal pain, vomiting, headache, vision change, dysuria, polyuria, cough, shortness of breath, difficulty breathing, chest pain, chest pressure. She endorses that she has had nausea intermittently with her chemotherapy, and sometimes has decreased appetite but does not have nausea at time of visit. She endorses a history of prediabetes with diet control. She endorses over 10 years of bilateral finger and foot numbness/tingling/neuropathy which has worsened with chemotherapy but which has not acutely changed in the past week. She was previously on IV chemotherapy which she received 3 times, is not sure which medication she received but was not able to tolerate it well. She was converted to oral Xelodo 1 month ago which she takes for 7 days off 7 days on at a 1500 mg twice daily dose regimen. Past medical history: Gout, hypothyroid, hypertension, hyperlipidemia, GERD, prediabetes, anxiety/depression, lung carcinoma status post left lower lobe resection, metastatic cholangiocarcinoma Home medications: Albuterol, allopurinol, levothyroxine 88, nortriptyline, omeprazole, oxycodone, Lyrica, trazodone, triamterenehydrochlorothiazide per chart review, patient unsure of her med list but reports it was reviewed with her and what was in the computer is correct. Xeloda confirmed with her family as her oral chemo agent. Surgical history: Hysterectomy, right knee surgery, back surgery, section x2, cholecystectomy, right lower lobectomy Allergies: Atorvastatin headaches. Silicone, severe swelling. Celecoxib, rash. Reglan, swelling and rash. Social: Tobacco: Approximately 30-year pack per day tobacco use, in remission for 16 years Denies alcohol use Denies recreational drug use Lives home alone, sister is recently in the home to help her around the house PCP: Dr. Ruvalcaba Oncologist: Dr. Guy in [place] Allergies Allergy/AdvReac Type Severity Reaction Status Date / Time metoclopramide Allergy Intermediate FACIAL AND Verified 11/23/18 03:54 FEET SWELLING, BONE PAIN silicone Allergy Intermediate SKIN MIRANDA Verified 11/23/18 03:54 celecoxib Allergy Mild RASH Verified 11/23/18 03:54 atorvastatin AdvReac Intermediate headaches Verified 11/23/18 03:54 Home Medications Home Medications Medication Instructions Recorded Confirmed Type albuterol sulfate [ProAir HFA] 2 puff INHALATION QID PRN 12/14/17 11/23/18 History allopurinol 100 mg PO QAM 12/14/17 11/23/18 History levothyroxine 88 mcg PO QAM 12/14/17 11/23/18 History nortriptyline 100 mg PO HS 12/14/17 11/23/18 History omeprazole 20 mg PO QAM 12/14/17 11/23/18 History trazodone 100 mg PO QPM 12/14/17 11/23/18 History docusate sodium [Stool Softener] 200 mg PO BID 05/19/18 11/23/18 History triamterene 37.5 1 tab PO DAILY #90 tab 09/08/18 11/23/18 Rx mg-hydrochlorothiazide 25 mg tablet lorazepam 0.5 mg PO DAILY PRN 09/09/18 11/23/18 History oxycodone 5 mg PO Q8H PRN 09/09/18 11/23/18 History pregabalin [Lyrica] 75 mg PO TID 09/09/18 11/23/18 History prochlorperazine maleate 10 mg PO Q6H PRN 09/09/18 11/23/18 History tramadol-acetaminophen 1 tab PO Q8H PRN 09/09/18 11/23/18 History Unknown Chemo Medication 1 dose PO BIDM 11/23/18 11/23/18 History cinnamon bark [Cinnamon] 1,000 mg PO DAILY 11/23/18 11/23/18 History Patient History Family History Brother Family history of lung cancer Sister Family history of lung cancer sister Family history of kidney cancer Family history of skin cancer Family history of breast cancer Family history of uterine cancer Family history of ovarian cancer Mother , age 89 "old age" No problems noted. 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 [employer] Feels Safe at Home: Yes Safety Concerns: Feels Safe At This Time Smoking Status: Former smoker Tobacco Type: cigarettes ; Cigarettes Per Day: QUIT 15 YR AGO, PREVIOUS 1/2 PPD X 25 YR ; Second Hand Exposure: No ; Hx Alcohol Use: No Hx Substance Use: No Review of Systems Review of Systems: Constitutional: Endorses fevers chills, fatigue Eyes: Denies double vision, vision change, eye pain ENT: Denies ear pain, sore throat, sinus pain Cardiovascular: Endorses right port pain last week as noted in HPI, otherwise denies chest pain, chest pressure, palpitations, extremity swelling Respiratory: Denies shortness of breath, cough, sputum production, difficulty breathing Gastrointestinal: Denies abdominal pain, vomiting, constipation, diarrhea. Endorses nausea as noted in HPI. Genitourinary: Denies pain with urination, urinary urgency, urinary frequency Musculoskeletal: Denies focal weakness, muscle aches/pain, joint aches/pain Integumentary: Endorses port swelling as noted in HPI, otherwise denies rash, lesions, bruising Neurological: Denies headache, focal weakness. Endorses numbness/tingling/neuropathy as noted in HPI Physical Exam Physical Exam: General: A&Ox3. NAD. Cooperative. HEENT: Atraumatic, normocephalic. Skin is warm and dry. Extraocular movements intact without nystagmus or saccades. Ear canals clear, tympanic membrane intact without erythema, perforation, or effusion bilaterally. Hearing intact. Posterior pharynx without erythema or edema. Facial sensation and strength intact in all distributions, no facial asymmetry. Thoracic: Port present on right upper chest. Without erythema, swelling, warmth, purulence, or discharge. Pulm: Diminished left lower air movement, left upper and right upper lobes clear with good air movement. Trace crackles in right lower lobe. Symmetrical chest rise. No increased work of breathing. No accessory muscle recruitment for breathing. Cardiac: RRR, iii/vi systolic murmur without rubs or gallops. Radial pulses intact and symmetrical. Abdominal: Nontender, nondistended, soft. BS present. Extremities: Warm, dry. Sensation intact but diminished to soft touch in feet bilaterally and fingertips bilaterally. 5/5 strength to ankle plantarflexion/dorsiflexion, hip flexion, news videotape editor, elbow flexion/extension, shoulder flexion/extension/internal rotation/external rotation without pain. Results & Data Vital Signs (Past 12 Hours) Vital Signs Temp Pulse Pulse Resp BP BP Pulse Ox 11/23/18 10:00 93 H 18 97/62 L 94 11/23/18 09:28 36.8 C 96 H 98 H 18 97/60 L 97 11/23/18 08:48 104 H 21 100/52 L 96 11/23/18 08:06 118 H 19 99/57 L 95 11/23/18 06:00 110 H 24 103/55 L 93 11/23/18 05:25 37.6 C H 11/23/18 05:00 119 H 29 H 132/68 95 11/23/18 04:19 113 H 25 H 113/72 91 11/23/18 03:30 133 H 20 92/67 L 93 11/23/18 03:15 39.0 C H 136 H 24 126/71 93 11/23/18 03:12 130 H 20 129/72 92 Pulse Ox 11/23/18 10:00 11/23/18 09:28 97 11/23/18 08:48 11/23/18 08:06 11/23/18 06:00 11/23/18 05:25 11/23/18 05:00 11/23/18 04:19 11/23/18 03:30 11/23/18 03:15 11/23/18 03:12 PG Care Time/CCT Total # of Minutes Spent Total Time Spent with Patient: Total time spent is greater than 50% in coordination of care (as documented) at patient's floor/unit and/or counseling patient: Critical Care Time: Yes Total Critical Care Time: 55 Resident Activity Tracking Resident Involvement: Resident Care Provided Care Provided: Adult Hospital Medicine (1) Hypothyroidism Hypothyroidism type: acquired Qualified Code(s): E03.9 - Hypothyroidism, unspecified (2) Leukocytosis Leukocytosis type: other Qualified Code(s): D72.828 - Other elevated white blood cell count (3) GERD (gastroesophageal reflux disease) Esophagitis presence: esophagitis presence not specified Qualified Code(s): K21.9 - Gastro-esophageal reflux disease without esophagitis (4) Hypertension Hypertension type: essential hypertension Qualified Code(s): I10 - Essential (primary) hypertension
[2018-11-23] MEDS: ALLOPURINOL 100 MG TAB PO SCH (10:52)
[2018-11-23] MEDS: DOCUSATE SODIUM 100 MG CAP PO SCH ×2 (10:52→20:34)
[2018-11-23] MEDS: LEVOTHYROXINE SODIUM 88 MCG TABLET PO SCH (10:52)
[2018-11-23] MEDS: PANTOprazole 40 MG TAB PO SCH (10:53)
[2018-11-23] MEDS: PREGABALIN 75 MG CAP PO SCH ×3 (10:54→20:33)
--- NOTE | 2018-11-23 11:30 | Surgery Consultation ---
Date of Consultation November 23, 2018 Assessment & Plan (1) Severe sepsis: pt is a 63 year-old female who was admitted to ICU for sepsis, infected port, IMP: sepsis, infected port, Plan, I recommend to remove port under local anesthesia, D/W Benefits, risk and alternatives of the surgery, the risks - infection, bleeding, blood clot, sepsis, pt and her sister understood, they agree with the surgery, I answered all questions, History of Present Illness Attending Physician: Salvatore Rubio Chief Complaint: rigors/chills Primary Care Provider: Ace Ruvalcaba MD 63yo female with known cholangiocarcinoma who presents with rigors/cold chills that started about 0100 this am. This awoke her from sleep. She had an uneventful day yesterday. She apparently had undergone 3 rounds of IV chemotherapy under the direction of an oncologist at [facility] by the name of Dr. Chance Guy. She had significant side effects from the chemo and was changed to an oral chemo agent about 1 month ago. Her cycle for the oral chemotherapy is 7 days on and 7 days off. She has a central port in the right chest and sometime last week, when she had a routine flush from the home health nurse, it sounds as if the IV infiltrated and the port was swollen and red. Her right arm was swollen for a few days then it resolved. The port is no longer swollen/red. She also mentions 2 weeks of right ear pain and 2 days of left-sided abdominal pain. Eating food does NOT make the stomach pain worse. Appetite has been normal. No recent weight loss. I ( Remi Mace MD ) got a call for consult to remove infected port, I reviewed pt's H/P with pt and her sister at bedside, pt had blood culture from port which was gram negative bacilli. pt and his ICU attending request to remove the port. Allergies Allergy/AdvReac Type Severity Reaction Status Date / Time metoclopramide Allergy Intermediate FACIAL AND Verified 11/23/18 03:54 FEET SWELLING, BONE PAIN silicone Allergy Intermediate SKIN MIRANDA Verified 11/23/18 03:54 celecoxib Allergy Mild RASH Verified 11/23/18 03:54 atorvastatin AdvReac Intermediate headaches Verified 11/23/18 03:54 Home Medications Home Medications Medication Instructions Recorded Confirmed Type albuterol sulfate [ProAir HFA] 2 puff INHALATION QID PRN 12/14/17 11/23/18 History allopurinol 100 mg PO QAM 12/14/17 11/23/18 History levothyroxine 88 mcg PO QAM 12/14/17 11/23/18 History nortriptyline 100 mg PO HS 12/14/17 11/23/18 History omeprazole 20 mg PO QAM 12/14/17 11/23/18 History trazodone 100 mg PO QPM 12/14/17 11/23/18 History docusate sodium [Stool Softener] 200 mg PO BID 05/19/18 11/23/18 History triamterene 37.5 1 tab PO DAILY #90 tab 09/08/18 11/23/18 Rx mg-hydrochlorothiazide 25 mg tablet lorazepam 0.5 mg PO DAILY PRN 09/09/18 11/23/18 History oxycodone 5 mg PO Q8H PRN 09/09/18 11/23/18 History pregabalin [Lyrica] 75 mg PO TID 09/09/18 11/23/18 History prochlorperazine maleate 10 mg PO Q6H PRN 09/09/18 11/23/18 History tramadol-acetaminophen 1 tab PO Q8H PRN 09/09/18 11/23/18 History Unknown Chemo Medication 1 dose PO BIDM 11/23/18 11/23/18 History cinnamon bark [Cinnamon] 1,000 mg PO DAILY 11/23/18 11/23/18 History Patient History Family History Brother Family history of lung cancer Sister Family history of lung cancer sister Family history of kidney cancer Family history of skin cancer Family history of breast cancer Family history of uterine cancer Family history of ovarian cancer Mother , age 89 "old age" No problems noted. 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 [employer] Feels Safe at Home: Yes Safety Concerns: Feels Safe At This Time Smoking Status: Former smoker Tobacco Type: cigarettes ; Cigarettes Per Day: QUIT 15 YR AGO, PREVIOUS 1/2 PPD X 25 YR ; Second Hand Exposure: No ; Hx Alcohol Use: No Hx Substance Use: No Review of Systems Review of Systems: All systems reviewed & are unremarkable except as noted in HPI & below Physical Exam Constitutional: WD/WN, vitals as above well developed and well nourished ENMT: external ear and nose normal, oropharynx normal Neck: trachea midline, no thyromegaly Respiratory: normal respiratory effort, lungs clear to auscultation one port is loctaed at Right upper chest wall, no redness, no tenderness, Cardiovascular: RRR, no murmur, no edema Rate/Rhythm: regular rate and regular rhythm Gastrointestinal (Abdomen): normal bowel sounds, soft, nontender, no hepatosplenomegaly Percussion/Palpation: abdomen soft NT, ND, BS+ Musculoskeletal: no cyanosis or clubbing, extremities motor strength 5/5 Neurologic: patellar DTR's 2+ bilat, sensation intact Psychiatric: A+Ox3, euthymic affect Orientation: alert and oriented x 3 Results & Data Vital Signs (Past 12 Hours) Vital Signs Temp Pulse Pulse Resp BP BP Pulse Ox 11/23/18 10:00 93 H 18 97/62 L 94 11/23/18 09:28 36.8 C 96 H 98 H 18 97/60 L 97 11/23/18 08:48 104 H 21 100/52 L 96 11/23/18 08:06 118 H 19 99/57 L 95 11/23/18 06:00 110 H 24 103/55 L 93 11/23/18 05:25 37.6 C H 11/23/18 05:00 119 H 29 H 132/68 95 11/23/18 04:19 113 H 25 H 113/72 91 11/23/18 03:30 133 H 20 92/67 L 93 11/23/18 03:15 39.0 C H 136 H 24 126/71 93 11/23/18 03:12 130 H 20 129/72 92 Pulse Ox 11/23/18 10:00 11/23/18 09:28 97 11/23/18 08:48 11/23/18 08:06 11/23/18 06:00 11/23/18 05:25 11/23/18 05:00 11/23/18 04:19 11/23/18 03:30 11/23/18 03:15 11/23/18 03:12 Laboratory Results Abnormal lab results 11/23/18 11/23/18 11/23/18 Range/Units 03:49 03:49 03:49 RBC 3.76 L (4.2-5.4) M/uL Hgb 10.2 L (12.0-16.0) g/dL Hct 31.8 L (37-47) % RDW Std Deviation 60.0 H (36.4-46.3) fL RDW Coeff of Harish 19.6 H (11.5-14.5) % Immature Gran # (Auto) 0.05 H (0.00-0.02) K/uL Neut # (Auto) 9.66 H (1.4-6.5) K/uL Lymph # (Auto) 0.68 L (1.2-3.4) K/uL [place] # (Auto) 0.08 L (0.11-0.59) K/uL Glucose 146 H (70-99) mg/dl POC Glucose (70-99) POC Lactic Acid Yon (0.90-1.70) mmol/L Magnesium 1.6 L (1.8-2.4) mg/dl Alkaline Phosphatase 215 H (45-117) U/L Albumin 2.3 L (3.4-5.0) gm/dl Globulin 5.1 H (2.5-4.0) gm/dl Albumin/Globulin Ratio 0.5 L (0.9-2) Procalcitonin 0.92 H (0-0.5) ng/ml Urine pH (4.5-7.5) Ur Specific [place] (1.000-1.030) Ur Leukocyte Esterase (Negative) Urine WBC (Auto) (0-5) /hpf U Epithel Cells (Auto) (0-5) /lpf Urine Bacteria (Auto) (Negative) 11/23/18 11/23/18 11/23/18 Range/Units 03:59 06:36 07:04 RBC (4.2-5.4) M/uL Hgb (12.0-16.0) g/dL Hct (37-47) % RDW Std Deviation (36.4-46.3) fL RDW Coeff of Harish (11.5-14.5) % Immature Gran # (Auto) (0.00-0.02) K/uL Neut # (Auto) (1.4-6.5) K/uL Lymph # (Auto) (1.2-3.4) K/uL Vernon # (Auto) (0.11-0.59) K/uL Glucose (70-99) mg/dl POC Glucose (70-99) POC Lactic Acid Yon 2.78 H 3.02 H (0.90-1.70) mmol/L Magnesium (1.8-2.4) mg/dl Alkaline Phosphatase (45-117) U/L Albumin (3.4-5.0) gm/dl Globulin (2.5-4.0) gm/dl Albumin/Globulin Ratio (0.9-2) Procalcitonin (0-0.5) ng/ml Urine pH 8.0 H (4.5-7.5) Ur Specific [place] > 1.045 H (1.000-1.030) Ur Leukocyte Esterase Trace H (Negative) Urine WBC (Auto) 5-10 H (0-5) /hpf U Epithel Cells (Auto) >30 H (0-5) /lpf Urine Bacteria (Auto) 1+ H (Negative) 11/23/18 Range/Units 09:49 RBC (4.2-5.4) M/uL Hgb (12.0-16.0) g/dL Hct (37-47) % RDW Std Deviation (36.4-46.3) fL RDW Coeff of Harish (11.5-14.5) % Immature Gran # (Auto) (0.00-0.02) K/uL Neut # (Auto) (1.4-6.5) K/uL Lymph # (Auto) (1.2-3.4) K/uL [place] # (Auto) (0.11-0.59) K/uL Glucose (70-99) mg/dl POC Glucose 133 H (70-99) POC Lactic Acid Yon (0.90-1.70) mmol/L Magnesium (1.8-2.4) mg/dl Alkaline Phosphatase (45-117) U/L Albumin (3.4-5.0) gm/dl Globulin (2.5-4.0) gm/dl Albumin/Globulin Ratio (0.9-2) Procalcitonin (0-0.5) ng/ml Urine pH (4.5-7.5) Ur Specific [place] (1.000-1.030) Ur Leukocyte Esterase (Negative) Urine WBC (Auto) (0-5) /hpf U Epithel Cells (Auto) (0-5) /lpf Urine Bacteria (Auto) (Negative) Blood culture positive for gram negative bacilli, CT abd pelvis IV con only CT DOSE: HISTORY: Pain fever, abd pain, known ca TECHNIQUE: Multiaxial CT images of the abdomen and pelvis were performed following the use of intravenous contrast. A dose lowering technique was utilized adhering to the principles of ALARA. COMPARISON STUDY: 09/09/2018 FINDINGS: Minimal dependent basilar atelectasis. Mildly progressive liver metastatic disease. Progressive retrocrural and celiac axis adenopathy. Probable extension to the lateral and inferior aspect of the gastric fundus and gastroesophageal junction, left adrenal, as well as compromise of the splenic vein. Additional extension to the pancreatic tail/pancreatic body. These findings are progressive compared to the prior study. Nonobstructive bowel pattern. No significant pelvic or inguinal kailey pathology. IMPRESSION: 1. Progressive neoplastic change involving the liver, upper abdominal and retroperitoneal adenopathy as described,. 2. The appearance is consistent with that of progressive neoplastic change. 3. Nonobstructive bowel pattern.
[2018-11-23 11:45] LABS: INR 1.3 (0.9-1.1); Prothrombin Time 13.2 Seconds (9.0-12.0)
[2018-11-23] MEDS ORDERED: ENOXAPARIN INJ 40 MG/0.4 ML SYR SQ SCH ×2 (12:00→21:00)
[2018-11-23] MEDS: PIPERACILLIN/TAZOBACTAM 3.375 GM in DEXTROSE 5% 100 ML IV SCH ×2 (13:39→21:35)
[2018-11-23] MEDS ORDERED: BUPIVACAINE 0.5 % 5 MG/1 ML MPF 30ML VIAL ONE (14:33)
[2018-11-23] MEDS ORDERED: LIDOCAINE HCL 1% 20 ML VIAL ONE (14:33)
[2018-11-23] MEDS ORDERED: BACITRACIN OINT 15 GM TUBE ONE (14:33)
--- NOTE | 2018-11-23 15:10 | Post Operative Brief Note ---
Immediate Post Op Note v1 Date of Surgery November 23, 2018 Pre & Post Diagnosis Operation Date: 11/23/18 11:35 Pre-Op Diagnosis: sepsis Post-Op Diagnosis: sepsis Procedure Operation Date: 11/23/18 11:35 Actual Procedures p Infusaport Removal(Right) - Remi Mace MD Surgeon Remi Mace MD [employer] Coach surgical orderly Estimated Blood Loss 5 Findings Consistent with Post-Op Diagnosis culture tip of catheter Fluids 100ml Specimens none Anesthesia Type Local Complications none Disposition Accompanied Patient To Recovery: Yes Disposition: Recovery Room Overlapping Procedure I was immediately available: during the entire case.
[2018-11-23] MEDS ORDERED: PROCHLORPERAZINE MALEATE 10 MG TAB PO PRN (15:40)
[2018-11-23] MEDS ORDERED: LORazepam 0.5 MG TAB PO PRN (15:40)
[2018-11-23] MEDS ORDERED: TRAMADOL/ACETAMINOPHEN 37.5/325MG TAB PO PRN (15:40)
[2018-11-23] MEDS: VANCOMYCIN HCL 1,500 MG in SODIUM CHLORIDE 0.9% 500 ML IV SCH (15:47)
[2018-11-23] MEDS ORDERED: [UNRECOGNIZED DRUG - REMARK] PO SCH (17:00)
[2018-11-23] MEDS ORDERED: THIAMINE HCL 200 MG in SODIUM CHLORIDE 0.9% 50 ML IV STA (17:24)
[2018-11-23] MEDS: NORTRIPTYLINE HCL 25 MG CAP PO SCH (20:33)
[2018-11-23] MEDS: TRAZODONE HCL 100 MG TAB PO SCH (20:34)
[2018-11-23] MEDS ORDERED: HEPARIN 100 UNIT/ML 5ML FLUSH FLUSH PRN (22:51)
--- NOTE | 2018-11-23 23:03 | Operative Report ---
DATE OF OPERATION: 11/23/2018 PREOPERATIVE DIAGNOSIS: Abscess. POSTOPERATIVE DIAGNOSIS: Abscess. OPERATION: Removal of port catheter. SURGEON: Remi Mace M.D. ANESTHESIA: Local. ESTIMATED BLOOD LOSS: About 5 mL. FINDINGS: Normal finding on the port catheter, intact over the port and the catheter. Tip of the catheter sent for culture. COMPLICATIONS: None. INDICATIONS FOR THE PROCEDURE: This is a 63-year-old female who was admitted to hospital for sepsis. The patient had a blood culture from the port, which was positive for gram negative bacilli and patient will be required to remove the port catheter on the right upper chest. I did talk to the patient about the benefit, risk, alternate procedure. I indicated the risks may include but not limited such as bleeding, infection, sepsis, blood clot. The patient understands. She signed informed consent and I answered all questions. DETAILS OF PROCEDURE: We brought the patient to the OR, put the patient in the supine position. The patient received SCD on bilateral legs to prevent DVT. The patient received vancomycin for prophylactic antibiotic IV and right upper chest was appropriately draped in routine sterile fashion. After time-out, I injected the local anesthesia by using 1% lidocaine mixed with 0.5% Marcaine just around the port. The port has tunneled catheter reach right internal jugular vein. Then, we made an incision, removed the old scar and completely removed the port without difficulty. The tip of the catheter sent to culture. Hemostasis was obtained. Then, I used 3-0 nylon to close the incision interrupted. We put the dressing on. The patient tolerated the procedure well. All instrument, needle and sponge count were correct x2 at the end of the case. The patient transferred to recovery room in stable condition and also patient needed to remove the skin suture after 2 weeks, come by my office. The patient understands. I attest to the content of the Intraoperative Record and any orders documented therein. Any exception s are noted below.
[2018-11-24] MEDS: NORMOSOL-R 1,000 ML IV SCH (00:45)
[2018-11-24] MEDS: VANCOMYCIN HCL 1,500 MG in SODIUM CHLORIDE 0.9% 500 ML IV SCH (04:02)
[2018-11-24 05:28] LABS: Basophils # (auto) 0.05 K/uL (0-0.2); Basophils % (auto) 0.5 %; Eosinophils # (auto) 0.15 K/uL (0-0.5); Eosinophils % (auto) 1.6 %; Hematocrit (blood only) 27.9 % (37-47); Hemoglobin 8.5 g/dL (12.0-16.0); Immature Granulocytes # (auto) 0.03 K/uL (0.00-0.02); Immature Granulocytes % (auto) 0.3 %; Lymphocytes # (auto) 1.76 K/uL (1.2-3.4); Lymphocytes % (auto) 18.6 %; Mean Corpuscular Hemoglobin 26.3 pg (25-34); Mean Corpuscular Hgb Conc 30.5 g/dL (32-36); Mean Corpuscular Volume 86.4 fL (80-100); Mean Platelet Volume 9.7 fL (7.4-10.4); Monocytes # (auto) 0.65 K/uL (0.11-0.59); Monocytes % (auto) 6.9 %; Neutrophils # (auto) 6.81 K/uL (1.4-6.5); Neutrophils % (auto) 72.1 %; Platelet Count 186 K/uL (130-400); RDW Coefficient of Variation 20.3 % (11.5-14.5); RDW Standard Deviation 64.2 fL (36.4-46.3); Red Blood Count 3.23 M/uL (4.2-5.4); White Blood Count 9.45 K/uL (4.8-10.8)
[2018-11-24 06:02] LABS: Albumin Level 1.8 gm/dl (3.4-5.0); Bilirubin Direct 0.1 mg/dl (0-0.2); Bilirubin,Total 0.4 mg/dl (0.2-1); Calcium 7.8 mg/dl (8.5-10.1); Creatinine Clr Calc Pharmacy 114.4 ml/min; Est GFR (African American) 114.1; Est GFR (Non-African American) 98.4; Magnesium 2.3 mg/dl (1.8-2.4); Potassium 3.4 mmol/L (3.5-5.1); Total Protein 6.1 gm/dl (6.4-8.2)
[2018-11-24 06:05] LABS: RBC Morphology Unremarkable
[2018-11-24] MEDS: LEVOTHYROXINE SODIUM 88 MCG TABLET PO SCH (06:07)
[2018-11-24 06:22] LABS: Anisocytosis Present
[2018-11-24] MEDS: PIPERACILLIN/TAZOBACTAM 3.375 GM in DEXTROSE 5% 100 ML IV SCH ×3 (07:07→21:35)
[2018-11-24] MEDS: POTASSIUM CHLORIDE 10 MEQ TABCR PO SCH ×3 (07:28→16:25)
[2018-11-24] MEDS: PANTOprazole 40 MG TAB PO SCH (08:48)
[2018-11-24] MEDS: DOCUSATE SODIUM 100 MG CAP PO SCH ×2 (08:48→20:53)
--- NOTE | 2018-11-24 08:48 | Critical Care Progress Note ---
Date of Service November 24, 2018 Assessment & Plan (1) Severe sepsis: Reason Critically Ill: Yessica is a 63-year-old female with a past medical history of gout, hypothyroid, hypertension, hyperlipidemia, GERD, prediabetes, lung carcinoma status post left lower lobe resection, and cholangiocarcinoma who presents with febrile rigors and who has been admitted to the intensive care unit for sepsis. Neuro - [facility] ICU: Negative Analgesia: Oxycodone 5 mg p.o. every 8 hours as needed Continue nortriptyline 100 mg p.o. nightly Insomnia Continue STORAGE AND BACKUP ADMINISTRATOR trazodone 100 mg every afternoon Cardiac - Hypertension Continue STORAGE AND BACKUP ADMINISTRATOR triameterenehydrochlorothiazide No history of coronary artery disease Respiratory - SPO2 greater than 88% on room air, no tachypnea on arrival to unit History of left lower lobectomy without functional deficit CT chest showed no evidence of pulmonary emboli or pneumonia GI - Type II diabetic diet Cholangiocarcinoma with metastasis to liver Previously on 3 rounds of IV chemotherapy, converted to oral chemo 7 days on 7 days off with Xeloda 1500 mg twice daily. Hold chemotherapeutic agents in the setting of sepsis and infection. Her oncologist is aware and agrees with holding chemotherapy. No acute GI concerns today, continue CBC daily RENAL/LYTES - Potassium 3.4, added potassium chloride 20 MEQ x3 every 3 hours doses - Bacteriuria - No symptoms of UTI, UA with 1+ bacteria and leukocyte esterase -UC with low counts of mixed mele ENDO - Prediabetes with neuropathy Glucose 146 on admission, diet controlled prior to admission Insulin SSI, glucose checks AC/at bedtime Continue pregabalin 75 mg 3 times daily BMP daily Hypothyroidism Continue Synthroid 88 mcg p.o. daily HEME - No leukocytosis, hemoglobin 8.5 CBC daily ID - Sepsis 2/2 CLABSI of right port Source control obtained with right port removal, site without concerns for overlying cellulitis Blood cultures drawn from port positive for gram-negative bacilli at less than 12 hours Patient given empiric cefepime and vancomycin converted to vanc Zosyn on transfer Lactate 3.6 down trended to 2.4 MRSA swab negative. Antibiotics narrowed to Zosyn monotherapy every 8 hours Procalcitonin 0.92 on admit increased to 36 Normosol discontinued INTEGUMENTARY - Right port infection as above, no other acute skin findings LINES/IV ACCESS - PIVs intact. Right port pending removal DVT PROPHYLAXIS - Lovenox 40 mg subcu twice daily Disposition: Patient doing clinically well and hemodynamically stable without vasopressors. Stable for downgrade today Thank you for allowing us to be part of this patient's care. Please refer to Dr. Patel's documentation for any further recommendations. Supervising Physician Co-Signing Physician Notes Dr. Jeter was resident physician during care of patient. I separately evaluated patient for webster portions of the history and the exam. I was present during the critical portion of medical decision making, and I discussed the case with the resident. I generally agree with the findings and plan. Patient clinically feels better tolerating full diet. Repeat blood cultures have been obtained we will continue Zosyn until speciation occurs. Patient's hemodynamics are reassuring, she is stable for downgrade today. Patient was critically ill due to severe sepsis with gram-negative bacteremia secondary to indwelling port. Subjective Yessica reports she feels "much better today "she endorses some mild left flank pain last night, reports that this is not bothersome to her and is improved from yesterday. Otherwise she feels her energy and fatigue are both improved. She denies fevers, chills, sweats overnight. She has not had any chest pain, chest pressure, difficulty breathing, or dyspnea. She has not had a bowel movement yet today, no diarrhea or constipation since antibiotic initiation. No headache, syncope, presyncope. She is aware that her chemo is being held both per hour and her oncologist recommendations. Her port was removed by general surgery without complication. No questions or concerns at time of visit. Review of Systems 2 Review of Systems: Constitutional: Denies fevers, chills, fatigue today Eyes: Denies double vision, vision change, eye pain ENT: Denies ear pain, sore throat, sinus pain Cardiovascular: Denies pain, discomfort, redness, swelling at her port removal surgical site. Respiratory: Denies shortness of breath, cough, sputum production, difficulty breathing Gastrointestinal: Endorses mild left flank pain as noted in HPI, otherwise denies abdominal pain, vomiting, constipation, diarrhea. Denies nausea this morning. Genitourinary: Denies pain with urination, urinary urgency, urinary frequency Musculoskeletal: Denies focal weakness, muscle aches/pain, joint aches/pain Integumentary: Denies new rashes, lesions, bruising. Neurological: Denies headache, focal weakness. Endorses baseline numbness/tingling/neuropathy in distal extremities. Physical Exam Physical Exam: General: A&Ox3. NAD. Cooperative. HEENT: Atraumatic, normocephalic. Skin is warm and dry. Extraocular movements intact without nystagmus or saccades. Posterior pharynx without erythema or edema. Thoracic: Postsurgical site on right chest where port was removed, covered with a surgical dressing C/D/I without erythema, swelling, warmth, purulence, or discharge. Pulm: Trace crackles in the right lower lobe, otherwise clear to auscultation bilaterally. Symmetrical chest rise. No increased work of breathing. No accessory muscle recruitment for breathing. Cardiac: RRR, iii/vi systolic murmur without rubs or gallops. Radial pulses intact and symmetrical. Abdominal: Nontender, nondistended, soft. BS present. Extremities: Warm, dry. Sensation intact but diminished to soft touch in feet bilaterally and fingertips bilaterally. 5/5 strength to ankle plantarflexion/dorsiflexion, hip flexion, car manager, elbow flexion/extension, shoulder flexion/extension/internal rotation/external rotation without pain. Results & Data Vital Signs (Past 12 Hours) Vital Signs Temp Pulse Resp BP Pulse Ox 11/24/18 05:00 82 24 112/55 L 97 11/24/18 04:25 36.4 C L 11/24/18 04:00 73 19 90/47 L 99 11/24/18 03:00 81 24 123/67 98 11/24/18 02:00 81 24 115/66 97 11/24/18 01:00 81 23 97/52 L 97 11/24/18 00:00 36.4 C L 84 27 H 114/60 96 11/23/18 23:01 79 21 90 11/23/18 23:00 83 22 117/63 89 L 11/23/18 22:00 78 24 102/55 L 95 11/23/18 21:00 79 24 112/65 94 11/23/18 20:09 27 H 115/58 L 83 L 11/23/18 20:00 36.4 C L 11/23/18 19:00 74 17 100/54 L 96 PG Care Time/CCT Total # of Minutes Spent Total Time Spent with Patient: Total time spent is greater than 50% in coordination of care (as documented) at patient's floor/unit and/or counseling patient: Resident Activity Tracking Resident Involvement: Resident Care Provided Care Provided: [facility]
[2018-11-24] MEDS: TRIAMTERENE/HCTZ 37.5/25MG TAB PO SCH (08:49)
[2018-11-24] MEDS: ALLOPURINOL 100 MG TAB PO SCH (08:49)
[2018-11-24] MEDS: PREGABALIN 75 MG CAP PO SCH ×3 (08:55→20:53)
[2018-11-24] MEDS: THIAMINE HCL 100 MG TAB PO SCH (08:59)
[2018-11-24] MEDS ORDERED: PANTOprazole 40 MG TAB PO SCH (09:00)
[2018-11-24] MEDS ORDERED: FUROSEMIDE 20 MG in SYRINGE 0 ML IV ONE (09:00)
[2018-11-24] MEDS ORDERED: NON-FORMULARY MEDICATION (Cinnamon Bark [Cinnamon] 1,000 MG) PO SCH (09:00)
[2018-11-24] MEDS ORDERED: THIAMINE HCL 100 MG in SYRINGE 9 ML IV SCH (09:00)
[2018-11-24] MEDS: ENOXAPARIN INJ 40 MG/0.4 ML SYR SQ SCH ×2 (09:04→20:53)
--- NOTE | 2018-11-24 10:04 | Surgery Progress Note ---
Date of Service F/U S/P removed port, pt is doing fine, no fever, November 24, 2018 Assessment & Plan (1) Severe sepsis: pt is a 63 year-old female who was admitted to ICU for sepsis, infected port, IMP: sepsis, infected port, Plan, I recommend to remove port under local anesthesia, D/W Benefits, risk and alternatives of the surgery, the risks - infection, bleeding, blood clot, sepsis, pt and her sister understood, they agree with the surgery, I answered all questions, 11/24/2018 10:06am doing fine, sign off today, please call with questions, Thanks, F/U me 2 weeks, for remove sutures, Physical Exam Constitutional: WD/WN, vitals as above well developed and well nourished ENMT: external ear and nose normal, oropharynx normal Neck: trachea midline, no thyromegaly Respiratory: normal respiratory effort, lungs clear to auscultation Cardiovascular: RRR, no murmur, no edema Rate/Rhythm: regular rate and regular rhythm Gastrointestinal (Abdomen): normal bowel sounds, soft, nontender, no hepatosplenomegaly Percussion/Palpation: abdomen soft Musculoskeletal: no cyanosis or clubbing, extremities motor strength 5/5 Skin: the incision intact, no redness, no drainage Neurologic: patellar DTR's 2+ bilat, sensation intact Psychiatric: A+Ox3, euthymic affect Orientation: alert and oriented x 3 Results & Data Vital Signs (Past 12 Hours) Vital Signs Temp Pulse Resp BP Pulse Ox 11/24/18 07:14 83 11/24/18 06:00 87 23 116/71 96 11/24/18 05:00 82 24 112/55 L 97 11/24/18 04:25 36.4 C L 11/24/18 04:00 73 19 90/47 L 99 11/24/18 03:00 81 24 123/67 98 11/24/18 02:00 81 24 115/66 97 11/24/18 01:00 81 23 97/52 L 97 11/24/18 00:00 36.4 C L 84 27 H 114/60 96 11/23/18 23:01 79 21 90 11/23/18 23:00 83 22 117/63 89 L Laboratory Results Abnormal lab results 11/23/18 11/23/18 11/23/18 Range/Units 11:18 11:18 11:18 RBC (4.2-5.4) M/uL Hgb (12.0-16.0) g/dL Hct (37-47) % MCHC (32-36) g/dL RDW Std Deviation (36.4-46.3) fL RDW Coeff of Harish (11.5-14.5) % Immature Gran # (Auto) (0.00-0.02) K/uL Neut # (Auto) (1.4-6.5) K/uL Trinity # (Auto) (0.11-0.59) K/uL PT 13.2 H (9.0-12.0) Seconds INR 1.3 H (0.9-1.1) Potassium (3.5-5.1) mmol/L Chloride (98-107) mmol/L Creatinine (0.6-1.2) mg/dl Glucose (70-99) mg/dl POC Glucose (70-99) Lactate 3.6 H* (0.4-2.0) mmol/L Calcium (8.5-10.1) mg/dl Magnesium 2.5 H (1.8-2.4) mg/dl Alkaline Phosphatase (45-117) U/L Total Protein (6.4-8.2) gm/dl Albumin (3.4-5.0) gm/dl Procalcitonin (0-0.5) ng/ml 11/23/18 11/23/18 11/23/18 Range/Units 16:29 16:48 20:11 RBC (4.2-5.4) M/uL Hgb (12.0-16.0) g/dL Hct (37-47) % MCHC (32-36) g/dL RDW Std Deviation (36.4-46.3) fL RDW Coeff of Harish (11.5-14.5) % Immature Gran # (Auto) (0.00-0.02) K/uL Neut # (Auto) (1.4-6.5) K/uL Trinity # (Auto) (0.11-0.59) K/uL PT (9.0-12.0) Seconds INR (0.9-1.1) Potassium (3.5-5.1) mmol/L Chloride (98-107) mmol/L Creatinine (0.6-1.2) mg/dl Glucose (70-99) mg/dl POC Glucose 136 H 100 H (70-99) Lactate 2.4 H* (0.4-2.0) mmol/L Calcium (8.5-10.1) mg/dl Magnesium (1.8-2.4) mg/dl Alkaline Phosphatase (45-117) U/L Total Protein (6.4-8.2) gm/dl Albumin (3.4-5.0) gm/dl Procalcitonin (0-0.5) ng/ml 11/24/18 11/24/18 11/24/18 Range/Units 05:00 05:00 05:00 RBC 3.23 L (4.2-5.4) M/uL Hgb 8.5 L (12.0-16.0) g/dL Hct 27.9 L (37-47) % MCHC 30.5 L (32-36) g/dL RDW Std Deviation 64.2 H (36.4-46.3) fL RDW Coeff of Harish 20.3 H (11.5-14.5) % Immature Gran # (Auto) 0.03 H (0.00-0.02) K/uL Neut # (Auto) 6.81 H (1.4-6.5) K/uL Trinity # (Auto) 0.65 H (0.11-0.59) K/uL PT (9.0-12.0) Seconds INR (0.9-1.1) Potassium 3.4 L (3.5-5.1) mmol/L Chloride 109 H (98-107) mmol/L Creatinine 0.55 L (0.6-1.2) mg/dl Glucose 104 H (70-99) mg/dl POC Glucose (70-99) Lactate (0.4-2.0) mmol/L Calcium 7.8 L (8.5-10.1) mg/dl Magnesium (1.8-2.4) mg/dl Alkaline Phosphatase 196 H (45-117) U/L Total Protein 6.1 L (6.4-8.2) gm/dl Albumin 1.8 L (3.4-5.0) gm/dl Procalcitonin 32.36 H (0-0.5) ng/ml
[2018-11-24] MEDS ORDERED: GLUCOSE 40% GEL 15 GM TUBE PO PRN (13:45)
[2018-11-24] MEDS ORDERED: GLUCAGON FOR INJ 1 MG VIAL IM PRN (13:45)
[2018-11-24] MEDS ORDERED: GLUCOSE 10 TABS/TUBE PO PRN (13:45)
[2018-11-24] MEDS ORDERED: CARBOHYDRATES FOR HYPOGLYCEMIA PO PRN (13:45)
[2018-11-24] MEDS ORDERED: DEXTROSE 50% 50 ML SYRINGE IV PRN (13:45)
[2018-11-24] MEDS: INSULIN ASPART 100 UNITS/ML 3 ML PEN SC SCH ×3 (14:33→21:18)
--- NOTE | 2018-11-24 20:21 | Hospitalist Progress Note ---
Date of Service November 24, 2018 Assessment & Plan (1) Gram-negative bacteremia: cause of severe sepsis/septicemia. source? suspected to be from her port - s/p removal yesterday. no GI symptoms or signs that this was biliary in nature but cannot rule it out fully. either way she is clinically improved. cont zosyn for now; narrow once the sensitivities are back. vanco has been d/c. follow repeat blood cultures. (2) Severe sepsis: Borderline septic shock at admission - resolved. see "gram neg bacteremia" above. (3) Cholangiocarcinoma: Patient is followed by Dr Guy at [facility] in [place]. She is taking xeloda twice daily in a week on/week off cycle. Her imaging at admission appeared to show progressive disease but there was no sign of biliary tract obstruction on CT. LFTs stable with exception of mildly elevated alk phos. She last saw Dr Guy about 1 month ago. (4) Hypomagnesemia: Repleted and resolved. (5) Hypothyroidism: TSH is wnl. Cont synthroid. (6) GERD (gastroesophageal reflux disease): Cont PPI (7) Hypertension: Resumed home BP meds. (8) Chronic obstructive pulmonary disease: No exacerbation at this time. Cont albuterol prn. (9) Neuropathy: Cont lyrica. Cont nortriptyline. (10) Gout: No active flares at this time. Cont allopurinol prophylaxis. (11) DVT prophylaxis: lovenox 40mg family updated at bedside progressing nicely transferred out of ICU today Subjective patient feels very good today no fevers, chills, anorexia, fatigue minimal soreness over prior port site Review of Systems Respiratory: no dyspnea Cardiovascular: no chest pain Gastrointestinal: no abdominal pain Physical Exam Constitutional: well developed and well nourished; no acute distress and no altered mental status ENMT: external ear and nose normal, oropharynx normal Respiratory: normal respiratory effort, lungs clear to auscultation Cardiovascular: Rate/Rhythm: regular rhythm and + tachycardic Heart Sounds: normal S1 and normal S2; no murmur Vessels: posterior tibial pulses present and dorsalis pedis pulses present; no JVD Extremities: no edema Gastrointestinal (Abdomen): normal bowel sounds, soft, nontender, no hepatosplenomegaly Skin: prior port site clean Psychiatric: A+Ox3, euthymic affect Results & Data Vital Signs (Past 12 Hours) Vital Signs Temp Pulse Pulse Pulse Resp BP BP 11/24/18 15:25 36.7 C 99 H 17 119/78 11/24/18 13:11 36.9 C 101 H 18 114/74 11/24/18 10:03 100 H 27 H 107/68 11/24/18 09:00 96 H 25 H 104/65 Pulse Ox 11/24/18 15:25 99 11/24/18 13:11 96 11/24/18 10:03 11/24/18 09:00 98 Laboratory Results Laboratory Results - last 24 hr 11/24/18 11/24/18 11/24/18 05:00 05:00 05:00 WBC 9.45 RBC 3.23 L Hgb 8.5 L Hct 27.9 L MCV 86.4 MCH 26.3 MCHC 30.5 L RDW Std Deviation 64.2 H RDW Coeff of Harish 20.3 H Plt Count 186 MPV 9.7 Immature Gran % (Auto) 0.3 Neut % (Auto) 72.1 Lymph % (Auto) 18.6 Grady % (Auto) 6.9 Eos % (Auto) 1.6 Baso % (Auto) 0.5 Immature Gran # (Auto) 0.03 H Neut # (Auto) 6.81 H Lymph # (Auto) 1.76 Grady # (Auto) 0.65 H Eos # (Auto) 0.15 Baso # (Auto) 0.05 RBC Morphology Unremarkable Anisocytosis Present Sodium 142 Potassium 3.4 L Chloride 109 H Carbon Dioxide 28 Anion Gap 5.0 BUN 9 Creatinine 0.55 L Est Cr Clr Drug Dosing 114.4 Est GFR ( Amer) 114.1 Est GFR (Non-Af Amer) 98.4 BUN/Creatinine Ratio 16.0 Glucose 104 H POC Glucose Calcium 7.8 L Magnesium 2.3 Total Bilirubin 0.4 Direct Bilirubin 0.1 AST 24 ALT 13 Alkaline Phosphatase 196 H Total Protein 6.1 L Albumin 1.8 L Procalcitonin 32.36 H 11/24/18 17:20 WBC RBC Hgb Hct MCV MCH MCHC RDW Std Deviation RDW Coeff of Harish Plt Count MPV Immature Gran % (Auto) Neut % (Auto) Lymph % (Auto) Grady % (Auto) Eos % (Auto) Baso % (Auto) Immature Gran # (Auto) Neut # (Auto) Lymph # (Auto) Grady # (Auto) Eos # (Auto) Baso # (Auto) RBC Morphology Anisocytosis Sodium Potassium Chloride Carbon Dioxide Anion Gap BUN Creatinine Est Cr Clr Drug Dosing Est GFR ( Amer) Est GFR (Non-Af Amer) BUN/Creatinine Ratio Glucose POC Glucose 106 H Calcium Magnesium Total Bilirubin Direct Bilirubin AST ALT Alkaline Phosphatase Total Protein Albumin Procalcitonin Diagnostic Findings blood cx's from admission - all bottles - positive for GNR port tip cx thus far negative PG Care Time/CCT Total # of Minutes Spent Total Time Spent with Patient: Total time spent is greater than 50% in coordination of care (as documented) at patient's floor/unit and/or counseling patient: (1) Gout Chronicity: unspecified Gout etiology: unspecified cause Gout site: unspecified site Qualified Code(s): M10.9 - Gout, unspecified (2) Hypothyroidism Hypothyroidism type: acquired Qualified Code(s): E03.9 - Hypothyroidism, unspecified (3) Chronic obstructive pulmonary disease COPD type: unspecified COPD Qualified Code(s): J44.9 - Chronic obstructive pulmonary disease, unspecified (4) GERD (gastroesophageal reflux disease) Esophagitis presence: esophagitis presence not specified Qualified Code(s): K21.9 - Gastro-esophageal reflux disease without esophagitis (5) Hypertension Hypertension type: essential hypertension Qualified Code(s): I10 - Essential (primary) hypertension
[2018-11-24] MEDS: NORTRIPTYLINE HCL 25 MG CAP PO SCH (20:53)
[2018-11-24] MEDS: TRAZODONE HCL 100 MG TAB PO SCH (20:53)
[2018-11-25] MEDS: LEVOTHYROXINE SODIUM 88 MCG TABLET PO SCH (05:42)
[2018-11-25] MEDS: PIPERACILLIN/TAZOBACTAM 3.375 GM in DEXTROSE 5% 100 ML IV SCH (05:42)
[2018-11-25 06:07] LABS: Basophils # (auto) 0.03 K/uL (0-0.2); Basophils % (auto) 0.3 %; Eosinophils # (auto) 0.19 K/uL (0-0.5); Eosinophils % (auto) 2.1 %; Hematocrit (blood only) 28.7 % (37-47); Hemoglobin 8.7 g/dL (12.0-16.0); Immature Granulocytes # (auto) 0.03 K/uL (0.00-0.02); Immature Granulocytes % (auto) 0.3 %; Lymphocytes # (auto) 2.58 K/uL (1.2-3.4); Lymphocytes % (auto) 28.5 %; Mean Corpuscular Hgb Conc 30.3 g/dL (32-36); Mean Corpuscular Volume 85.7 fL (80-100); Mean Platelet Volume 9.9 fL (7.4-10.4); Monocytes # (auto) 0.79 K/uL (0.11-0.59); Monocytes % (auto) 8.7 %; Neutrophils # (auto) 5.42 K/uL (1.4-6.5); Neutrophils % (auto) 60.1 %; Platelet Count 225 K/uL (130-400); RDW Standard Deviation 62.7 fL (36.4-46.3); Red Blood Count 3.35 M/uL (4.2-5.4); White Blood Count 9.04 K/uL (4.8-10.8)
[2018-11-25 06:42] LABS: Alanine Aminotransferase 12 U/L (12-78); Albumin Level 1.9 gm/dl (3.4-5.0); Aspartate Aminotransferase 15 U/L (15-37); BUN Creatinine Ratio 14.3 (10-20); Bilirubin Direct < 0.1 mg/dl (0-0.2); Blood Urea Nitrogen 7 mg/dl (7-18); Calcium 8.1 mg/dl (8.5-10.1); Carbon Dioxide 31 mmol/L (21-32); Chloride 105 mmol/L (98-107); Creatinine Clr Calc Pharmacy 122.2 ml/min; Est GFR (African American) 116.2; Est GFR (Non-African American) 100.3; Glucose 95 mg/dl (70-99); Potassium 3.7 mmol/L (3.5-5.1); Sodium 141 mmol/L (136-145)
[2018-11-25 06:44] LABS: Alkaline Phosphatase 182 U/L (45-117); Bilirubin,Total 0.3 mg/dl (0.2-1); Total Protein 6.5 gm/dl (6.4-8.2)
[2018-11-25 06:45] LABS: Anisocytosis Present; Hypochromasia Present
[2018-11-25] MEDS: THIAMINE HCL 100 MG TAB PO SCH (09:20)
[2018-11-25] MEDS: DOCUSATE SODIUM 100 MG CAP PO SCH ×2 (09:21→21:25)
[2018-11-25] MEDS: ALLOPURINOL 100 MG TAB PO SCH (09:21)
[2018-11-25] MEDS: TRIAMTERENE/HCTZ 37.5/25MG TAB PO SCH (09:21)
[2018-11-25] MEDS: PANTOprazole 40 MG TAB PO SCH (09:21)
[2018-11-25] MEDS: ENOXAPARIN INJ 40 MG/0.4 ML SYR SQ SCH ×2 (09:21→20:58)
[2018-11-25] MEDS: INSULIN ASPART 100 UNITS/ML 3 ML PEN SC SCH ×4 (09:22→21:13)
[2018-11-25] MEDS: PREGABALIN 75 MG CAP PO SCH ×3 (09:27→20:58)
[2018-11-25] MEDS ORDERED: CIPROFLOXACIN 500 MG TAB PO SCH (10:30)
--- NOTE | 2018-11-25 18:48 | Hospitalist Progress Note ---
Date of Service November 25, 2018 Assessment & Plan (1) Gram-negative bacteremia: 2nd to klebsiella. source? suspected to be from her port - s/p removal on hospital day #1. however, port culture was negative. no GI symptoms or signs that this was biliary in nature but cannot rule it out fully. will obtain RUQ u/s to ensure nothing biliary going on that could have caused this. no pneumonia on CT. urine cx w/ contamination. regardless she is clinically improving. stop zosyn. narrow to once-daily rocephin. follow repeat cx's. if repeat cx's negative can likely transition to PO abx tomorrow on Tuesday; potentially d/c home then. (2) Severe sepsis: Borderline septic shock at admission - resolved. see "gram neg bacteremia" above. (3) Cholangiocarcinoma: Patient is followed by Dr Guy at [facility] in [place]. She is taking xeloda twice daily in a week on/week off cycle. Her imaging at admission appeared to show progressive disease but there was no sign of biliary tract obstruction on CT. LFTs stable with exception of mildly elevated alk phos. She last saw Dr Guy about 1 month ago. LFTs cont to be stable. Obtain RUQ u/s in am to r/o biliary cause of bacteremia/septicemia. (4) Hypomagnesemia: Repleted and resolved. (5) Hypothyroidism: TSH is wnl. Cont synthroid. (6) GERD (gastroesophageal reflux disease): Cont PPI (7) Hypertension: Controlled/stable. (8) Chronic obstructive pulmonary disease: No exacerbation at this time. Cont albuterol prn. (9) Neuropathy: Cont lyrica. Cont nortriptyline. (10) Gout: No active flares at this time. Cont allopurinol prophylaxis. (11) DVT prophylaxis: lovenox 40mg family updated at bedside once again PT consult in am to ensure safe for d/c home on Tuesday Subjective patient feeling good. eating well. ambulating w/o dyspnea. fatigue improved -- "I feel much better than when I came in." no diarrhea. c/o vaginal itching and irritation starting yesterday. daughter at bedside. Review of Systems Constitutional: no fever, no chills, no sweats, no body aches and no malaise Respiratory: no cough and no dyspnea Cardiovascular: no chest pain Gastrointestinal: + abdominal pain (left flank / LLQ - same as at admission) Genitourinary: no dysuria Physical Exam Constitutional: well developed and well nourished; no acute distress and no altered mental status ENMT: external ear and nose normal, oropharynx normal Mouth: no oral mucosal abnormality Respiratory: normal respiratory effort, lungs clear to auscultation Cardiovascular: Rate/Rhythm: regular rate and regular rhythm Heart Sounds: normal S1 and normal S2; no murmur Vessels: posterior tibial pulses present and dorsalis pedis pulses present; no JVD Extremities: no edema Gastrointestinal (Abdomen): Inspection/Auscultation: normal bowel sounds; abdomen not distended Percussion/Palpation: + abdomen tender (LLQ - slight) and abdomen soft; abdomen not rigid and no hepatosplenomegaly Skin: no rashes, warm and dry former port site covered w/ dressing Psychiatric: A+Ox3, euthymic affect Orientation: alert Results & Data Vital Signs (Past 12 Hours) Vital Signs Temp Pulse Pulse Resp BP BP Pulse Ox 11/25/18 15:51 37.3 C 98 H 22 114/75 95 11/25/18 07:29 36.5 C 89 16 126/78 95 Laboratory Results repeat cultures thus far negative original cultures from admission - pansensitive klebsiella pneumoniae PG Care Time/CCT Total # of Minutes Spent Total Time Spent with Patient: Total time spent is greater than 50% in coordination of care (as documented) at patient's floor/unit and/or counseling patient: (1) Gout Chronicity: unspecified Gout etiology: unspecified cause Gout site: unspecified site Qualified Code(s): M10.9 - Gout, unspecified (2) Hypothyroidism Hypothyroidism type: acquired Qualified Code(s): E03.9 - Hypothyroidism, unspecified (3) Chronic obstructive pulmonary disease COPD type: unspecified COPD Qualified Code(s): J44.9 - Chronic obstructive pulmonary disease, unspecified (4) GERD (gastroesophageal reflux disease) Esophagitis presence: esophagitis presence not specified Qualified Code(s): K21.9 - Gastro-esophageal reflux disease without esophagitis (5) Hypertension Hypertension type: essential hypertension Qualified Code(s): I10 - Essential (primary) hypertension
[2018-11-25] MEDS: TRAZODONE HCL 100 MG TAB PO SCH (20:58)
[2018-11-25] MEDS: NORTRIPTYLINE HCL 25 MG CAP PO SCH (20:58)
[2018-11-25] MEDS ORDERED: CLOTRIMAZOLE VAGINAL CR 7 APPLN/45 GM TUBE PV SCH (21:00)
[2018-11-25] MEDS ORDERED: cefTRIAXone SODIUM 2,000 MG in DEXTROSE 5% 50 ML IV SCH (21:00)
[2018-11-26 05:53] LABS: Basophils # (auto) 0.03 K/uL (0-0.2); Basophils % (auto) 0.3 %; Eosinophils # (auto) 0.14 K/uL (0-0.5); Eosinophils % (auto) 1.6 %; Hematocrit (blood only) 29.2 % (37-47); Hemoglobin 9.1 g/dL (12.0-16.0); Immature Granulocytes # (auto) 0.04 K/uL (0.00-0.02); Immature Granulocytes % (auto) 0.4 %; Lymphocytes # (auto) 2.57 K/uL (1.2-3.4); Lymphocytes % (auto) 28.8 %; Mean Corpuscular Hemoglobin 26.4 pg (25-34); Mean Corpuscular Hgb Conc 31.2 g/dL (32-36); Mean Corpuscular Volume 84.6 fL (80-100); Mean Platelet Volume 10.2 fL (7.4-10.4); Monocytes # (auto) 0.55 K/uL (0.11-0.59); Monocytes % (auto) 6.2 %; Neutrophils # (auto) 5.58 K/uL (1.4-6.5); Neutrophils % (auto) 62.7 %; Platelet Count 234 K/uL (130-400); RDW Coefficient of Variation 19.8 % (11.5-14.5); RDW Standard Deviation 61.6 fL (36.4-46.3); Red Blood Count 3.45 M/uL (4.2-5.4); White Blood Count 8.91 K/uL (4.8-10.8)
[2018-11-26 06:20] LABS: Alanine Aminotransferase 11 U/L (12-78); Aspartate Aminotransferase 15 U/L (15-37); BUN Creatinine Ratio 16.1 (10-20); Bilirubin Direct < 0.1 mg/dl (0-0.2); Blood Urea Nitrogen 8 mg/dl (7-18); Calcium 8.6 mg/dl (8.5-10.1); Carbon Dioxide 30 mmol/L (21-32); Chloride 104 mmol/L (98-107); Creatinine Clr Calc Pharmacy 132.3 ml/min; Est GFR (African American) 119.3; Est GFR (Non-African American) 102.9; Glucose 115 mg/dl (70-99); Magnesium 2.1 mg/dl (1.8-2.4); Potassium 3.7 mmol/L (3.5-5.1); Sodium 141 mmol/L (136-145)
[2018-11-26 06:23] LABS: Alkaline Phosphatase 156 U/L (45-117); Bilirubin,Total 0.4 mg/dl (0.2-1); Total Protein 6.7 gm/dl (6.4-8.2)
[2018-11-26] MEDS: LEVOTHYROXINE SODIUM 88 MCG TABLET PO SCH (06:33)
--- NOTE | 2018-11-26 08:12 | Ultrasound Report ---
ABDOMINAL ULTRASOUND, RIGHT UPPER QUADRANT HISTORY: cholangiocarcinoma; bacteremia; obstruction?. COMPARISON: Abdomen and pelvis CT 11/23/2018. FINDINGS: Pancreas: The pancreas demonstrates a normal echotexture. Liver: Multiple hepatic masses are again noted. The largest in the right lobe measures 5.7 x 3.1 x 2. 9 cm. Gallbladder: The gallbladder is surgically absent. CBD: 5 mm. Right kidney: No hydronephrosis. Miscellaneous: Periaortic lymphadenopathy measuring 4.5 cm. IMPRESSION: 1. Normal caliber common bile duct. 2. Hepatic masses and periaortic lymphadenopathy again noted. Electronically signed by: Prosper Douglas M.D. 11/26/2018 8:10 AM
[2018-11-26] MEDS: INSULIN ASPART 100 UNITS/ML 3 ML PEN SC SCH ×2 (09:28→13:12)
[2018-11-26] MEDS: ENOXAPARIN INJ 40 MG/0.4 ML SYR SQ SCH (09:31)
[2018-11-26] MEDS: THIAMINE HCL 100 MG TAB PO SCH (09:31)
[2018-11-26] MEDS: PREGABALIN 75 MG CAP PO SCH ×2 (09:31→13:25)
[2018-11-26] MEDS: ALLOPURINOL 100 MG TAB PO SCH (09:32)
[2018-11-26] MEDS: PANTOprazole 40 MG TAB PO SCH (09:32)
[2018-11-26] MEDS: TRIAMTERENE/HCTZ 37.5/25MG TAB PO SCH (09:32)
[2018-11-26] MEDS: DOCUSATE SODIUM 100 MG CAP PO SCH (09:33)
[2018-11-26] MEDS ORDERED: Nursing to Pharmacy Communication STA (17:10)
[2018-11-26] MEDS ORDERED: CEFDINIR 300 MG CAP PO ONE (17:45)
--- NOTE | 2018-12-04 05:20 | Discharge Summary ---
Date of Service date of admission - 11/23/18 date of discharge - 11/26/18 Admission HPI Per Admitting Provider 63yo female with known cholangiocarcinoma who presents with rigors/cold chills that started about 0100 this am. This awoke her from sleep. She had an uneventful day yesterday. She apparently had undergone 3 rounds of IV chemotherapy under the direction of an oncologist at [facility] by the name of Dr. Chance Guy. She had significant side effects from the chemo and was changed to an oral chemo agent about 1 month ago. Her cycle for the oral chemotherapy is 7 days on and 7 days off. She has a central port in the right chest and sometime last week, when she had a routine flush from the home health nurse, it sounds as if the IV infiltrated and the port was swollen and red. Her right arm was swollen for a few days then it resolved. The port is no longer swollen/red. She also mentions 2 weeks of right ear pain and 2 days of left-sided abdominal pain. Eating food does NOT make the stomach pain worse. Appetite has been normal. No recent weight loss. She does not take chronic steroids. No sick contacts. No travel last 1-2 weeks. No tick bites. Principal Diagnosis severe sepsis 2nd klebsiella pneumoniae Discharge Exam Constitutional well developed and well nourished; no acute distress and no altered mental status ENMT external ear and nose normal, oropharynx normal Respiratory normal respiratory effort, lungs clear to auscultation Cardiovascular Rate/Rhythm: regular rate and regular rhythm Heart Sounds: normal S1 and normal S2; no murmur Vessels: posterior tibial pulses present and dorsalis pedis pulses present; no JVD Extremities: no edema Gastrointestinal (Abdomen) Inspection/Auscultation: normal bowel sounds; abdomen not distended Percussion/Palpation: abdomen soft; abdomen not rigid and no hepatosplenomegaly Skin no rashes, warm and dry former port site clean (upper chest) Neurologic no focal motor deficits Psychiatric A+Ox3, euthymic affect Lymphatic + lymphadenopathy (?supraclavicular node on left) Discharge Data Allergies Allergy/AdvReac Type Severity Reaction Status Date / Time metoclopramide Allergy Intermediate FACIAL AND Verified 12/03/18 12:40 FEET SWELLING, BONE PAIN silicone Allergy Intermediate SKIN MIRANDA Verified 12/03/18 12:40 celecoxib Allergy Mild RASH Verified 12/03/18 12:40 valsartan Allergy Unknown Verified 12/03/18 12:40 atorvastatin AdvReac Intermediate headaches Verified 12/03/18 12:40 Consultations 1. critical care 2. general surgery 3. PT Procedures Performed Operation Date: 11/23/18 Actual Procedures Infusaport Removal(Right) - Remi Mace MD Ordered Studies 1. CTA chest - IMPRESSION: 1. No evidence of pulmonary thromboembolic disease. 2. Postoperative changes from prior left lower lobectomy. 3. Moderate emphysema with unchanged scattered subtle tree-in-bud nodules suggestive of a chronic bronchiolitis. 4. Development of several fissural nodules noted adjacent to the superior aspect of the right major fissure measuring up to 5 mm suggestive of lymph nodes. Attention at follow-up recommended. Additional new 4 mm solid nodule of the basal right lower lobe. 2. CT abd/pelvis - IMPRESSION: 1. Progressive neoplastic change involving the liver, upper abdominal and retroperitoneal adenopathy as described,. 2. The appearance is consistent with that of progressive neoplastic change. 3. Nonobstructive bowel pattern. 3. RUQ u/s - IMPRESSION: 1. Normal caliber common bile duct. 2. Hepatic masses and periaortic lymphadenopathy again noted. Hospital Course (1) Gram-negative bacteremia: 2nd to klebsiella pneumoniae. Source? suspected to be from her port - s/p removal on hospital day #1. The blood culture set that had been drawn from her port at the time of ER presentation grew bacteria within 6 hours. Unfortunately the port culture was ultimately negative thus we could not fully confirm if the port was indeed the source for her bacteremia. She had no GI symptoms or signs that this was biliary in nature but cannot rule it out fully. LFTs were noted to be nonobstructive in nature, and RUQ u/s did NOT show biliary obstruction from her cancer either. There was no pneumonia on CT. Urine cx w/ contamination only. Flu PCR was negative. The patient clinically improved with IV antibiotics and repeat blood cultures drawn on hospital day #2 remained negative prior to discharge. At discharge she will complete 11 days more of oral antibiotics (omnicef 300mg BID) for her bacteremia. She will need close follow-up with PCP and her oncologist in [place]. She will also need follow-up with Dr Mace from surgery for suture removal from the former port site. (2) Severe sepsis: Borderline septic shock at admission - resolved. She required copious fluid resuscitation but never needed pressor agents. She was admitted to ICU for 24 hours for close observation purposes only. see "gram neg bacteremia" above. (3) Cholangiocarcinoma: Patient is followed by Dr Guy at [facility] in [place]. She is taking xeloda twice daily in a week on/week off cycle. Her imaging at admission appeared to show progressive disease but there was no sign of biliary tract obstruction on CT. LFTs stable with exception of mildly elevated alk phos. She last saw Dr Guy about 1 month prior to admission. LFTs were stable throughout the visit. Obtained RUQ u/s to r/o biliary cause of bacteremia/septicemia but this showed patent biliary tract. CT of abdomen also did not show biliary obstruction. A CD-ROM with her CTs was given to patient at discharge to take with her to her f/u appointment in [place]. (4) Hypomagnesemia: Repleted and resolved. (5) Hypothyroidism: TSH is wnl. Cont synthroid. (6) GERD (gastroesophageal reflux disease): Cont PPI (7) Hypertension: Controlled/stable. BP agents were held at admission and later resumed. (8) Chronic obstructive pulmonary disease: No exacerbation at this time. Cont albuterol prn. (9) Neuropathy: Cont lyrica. Cont nortriptyline. (10) Gout: No active flares during the hospitalization. Cont allopurinol prophylaxis. Total Time Total Time Spent Total Time Spent (In Minutes): 40 Total Time Includes: Examination of the Patient, Discharge Planning and Medication Reconciliation Discharge Plan Discharge Items Patient Disposition: Home - Home Health Services Reason For Visit: SEVERE SEPSIS Discharge Diagnosis: severe sepsis (infection leading to the body getting systemically ill/sick) -- resolved. sepsis likely due to your port being infected. Discharge Goals: Diagnostic testing Activity: As commented below Activity Comment: please take it easy for 3-4 days then slowly increase your activity level Bathing: Keep incision dry Bathing Comment: OK to shower but keep incision covered/dry; NO TUB BATHS or im mersion Driving/Machine Use: Resume 3 days after discharge Non-emergency contact: Primary Care Provider Call non-emergency contact if: you have any medication questions, your symptoms worsen and your temperature is above 100.5 Follow-up/Referrals: Tawanda Ruvalcaba MD [Primary Care Provider] - (please see Dr Ruvalcaba or one of his partners THIS WEEK) Remi Mace MD [Physician] - (see Dr Mace, general surgery, in 2 weeks) Diet: Carb Consistent or DM2 Addtl Provider Instructions: You were admitted for fever and chills. You had come down with sepsis due to infection in your blood stream. The exact cause of the sepsis/blood-stream infection was thought to be due to your port being infected. We cannot prove that it was the port but it was highly suspected. We did not find evidence of urinary infection, pneumonia, skin infection, or infection of the bile ducts. You rapidly improved with IV antibiotics. Additionally, you developed a vaginal yeast infection and you also told us that the left side of your abdomen is uncomfortable at times. The abdominal pain is likely due to cancer being present in several lymph nodes ("swollen glands") in the abdomen. Recommendations - 1. take cefdinir antibiotic -- 300mg twice daily for 12 days. Take your first dose TONIGHT on 11/26/18. This is for the bloodstream infection. 2. take magnesium oxide 400mg once daily every day. 3. miconazole suppository nightly for 3 nights for the yeast infection. Start TONIGHT. 4. you may take the dressing off your former port site on TUESDAY. 5. please schedule a follow-up appointment with your oncologist in [place] some time in the next 7-10 days. Be sure to bring the CD with the films on them with you to that appointment for his review. 6. may use oxycodone 5mg every 6 hours as needed for pain. Do NOT drink alcohol if you are taking pain pills and DO NOT DRIVE while taking pain pills. 7. the oxycodone WILL cause constipation. Be sure to take a combination of miralax with senna (both are [id number]) to keep the bowels moving. Follow-up -- see separate section and #5 above. return to [facility] if -- * you develop recurrent fevers over 100.5 degrees * you develop severe diarrhea * you have worsening shortness of breath or chest pain * you have worsening abdominal pain despite taking your pain medication * any other concerns Prescriptions: New cefdinir 300 mg capsule 300 mg PO BID 12 Days Qty: 24 RF: 0 magnesium oxide 400 mg (241.3 mg magnesium) tablet 400 mg PO DAILY Qty: 30 RF: 5 Continued cinnamon bark [Cinnamon] 500 mg Capsule 1,000 mg PO DAILY RF: 0 allopurinol 100 mg Tablet 100 mg PO QAM RF: 0 levothyroxine 88 mcg Tablet 88 mcg PO QAM RF: 0 trazodone 100 mg Tablet 100 mg PO HS RF: 0 omeprazole 20 mg Capsule,Delayed Release(Dr/Ec) 20 mg PO QAM RF: 0 nortriptyline 50 mg Capsule 100 mg PO HS RF: 0 pregabalin [Lyrica] 75 mg capsule 75 mg PO TID RF: 0 lorazepam 0.5 mg tablet 0.5 mg PO DAILY PRN (Reason: Anxiety) RF: 0 prochlorperazine maleate 10 mg tablet 10 mg PO Q6H PRN (Reason: Nausea And Vomiting) RF: 0 Changed oxycodone 5 mg tablet 5 mg PO Q6H PRN (Reason: Pain) Qty: 30 RF: 0 Discontinued tramadol-acetaminophen 37.5-325 mg tablet 1 tab PO Q8H PRN (Reason: Pain) RF: 0 No Action docusate sodium 100 mg capsule 100 mg PO TID RF: 0 glimepiride 1 mg tablet 1 mg PO QAM Qty: 30 RF: 0 cholecalciferol (vitamin D3) 1,000 unit capsule 2,000 units PO QAM RF: 0 albuterol sulfate [ProAir HFA] 90 mcg/actuation HFA aerosol inhaler 2 puff INHALATION Q4H PRN (Reason: Shortness Of Breath) RF: 0 capecitabine [Xeloda] 500 mg Tablet 1,500 mg PO BID RF: 0 triamterene-hydrochlorothiazid 37.5-25 mg tablet 1 tab PO QAM RF: 0 Stand-Alone Forms: [employer], Opio[facility] Pain [facility] [employer]/Other Patient Handouts: Sepsis Dc Discharge Orders: Discharge Order (Routine); Ordered 11/26/18 Ordered By: Salvatore Rubio Admission Data Admit Date/Time: 11/23/18 08:12 Attending Provider: Salvatore Rubio Admit Provider: Salvatore Rubio Primary Care Provider: Tawanda Ruvalcaba Other Providers: Jessica Tovar ; Yahir Patel ; Remi Mace Service: Medical Other Interventions: Discharge Summary Assessment (RN) Last Done: 11/26/18 16:06 Pending Studies at Discharge: No DC Date/Time DO NOT enter until pt leaves facility: 11/26/18 17:45
== END 2018-11-26 17:45 | disposition home health service (06) | DRG 314 ==
LOC: ED 03:08 → 1E 08:12 → 3N 11-24 12:42

== ENCOUNTER 2018-12-03 11:17 | Inpatient (IN) ==
[2018-12-03] MEDS ORDERED: ONDANSETRON INJ 2 MG/ML 2 ML VIAL IV STA (12:05)
[2018-12-03] MEDS ORDERED: SODIUM CHLORIDE 0.9% 500 ML IV SCH (12:15)
[2018-12-03 13:09] LABS: Basophils # (auto) 0.06 K/uL (0-0.2); Basophils % (auto) 0.4 %; Eosinophils # (auto) 0.08 K/uL (0-0.5); Eosinophils % (auto) 0.6 %; Hematocrit (blood only) 30.9 % (37-47); Hemoglobin 9.6 g/dL (12.0-16.0); Immature Granulocytes # (auto) 0.04 K/uL (0.00-0.02); Immature Granulocytes % (auto) 0.3 %; Lymphocytes # (auto) 2.51 K/uL (1.2-3.4); Lymphocytes % (auto) 18.8 %; Mean Corpuscular Hgb Conc 31.1 g/dL (32-36); Mean Corpuscular Volume 84.9 fL (80-100); Mean Platelet Volume 10.3 fL (7.4-10.4); Monocytes # (auto) 0.89 K/uL (0.11-0.59); Monocytes % (auto) 6.7 %; Neutrophils # (auto) 9.77 K/uL (1.4-6.5); Neutrophils % (auto) 73.2 %; Platelet Count 303 K/uL (130-400); RDW Coefficient of Variation 18.5 % (11.5-14.5); RDW Standard Deviation 57.4 fL (36.4-46.3); Red Blood Count 3.64 M/uL (4.2-5.4); White Blood Count 13.35 K/uL (4.8-10.8)
--- NOTE | 2018-12-03 13:10 | XRay Report ---
SINGLE VIEW CHEST CLINICAL HISTORY: Generalized weakness. FINDINGS: An AP, portable, upright chest radiograph is compared to chest x-ray and chest CT dated 10/27. A right-sided central venous infusion port has been removed from previous. The heart is mildl y enlarged and there is atherosclerotic calcification of the thoracic aorta. Emphysema and chronic in terstitial thickening are similar to previous. Postoperative change is noted at the right apex. There are low lung volumes with bibasilar atelectasis. No airspace consolidation or pleural effusion is id entified. No pneumothorax is seen. The skeletal structures are osteopenic. The bony thorax is grossly intact. Cholecystectomy clips are noted in the right upper quadrant. IMPRESSION: 1. Cardiomegaly and emphysema with no acute cardiopulmonary abnormality. 2. A right-sided central venous infusion port has been removed from previous. 3. Low lung volumes. Electronically signed by: Mikhail Prater M.D. 12/03/2018 1:09 PM
[2018-12-03] MEDS ORDERED: cefTRIAXone SODIUM 2,000 MG/70 ML BAG IV STA (13:17)
[2018-12-03 13:26] LABS: Alanine Aminotransferase 13 U/L (12-78); Albumin Level 2.3 gm/dl (3.4-5.0); Aspartate Aminotransferase 20 U/L (15-37); BUN Creatinine Ratio 13.3 (10-20); Blood Urea Nitrogen 9 mg/dl (7-18); Calcium 8.8 mg/dl (8.5-10.1); Carbon Dioxide 28 mmol/L (21-32); Chloride 95 mmol/L (98-107); Creatinine Clr Calc Pharmacy 96.9 ml/min; Est GFR (African American) 106.9; Est GFR (Non-African American) 92.2; Glucose 189 mg/dl (70-99); Magnesium 1.9 mg/dl (1.8-2.4); Potassium 3.4 mmol/L (3.5-5.1); Sodium 134 mmol/L (136-145)
[2018-12-03 13:37] LABS: Albumin Globulin Ratio 0.4 (0.9-2); Alkaline Phosphatase 163 U/L (45-117); Bilirubin,Total 0.4 mg/dl (0.2-1); Globulin 5.7 gm/dl (2.5-4.0); Troponin I < 0.015 ng/ml (0-0.045)
--- NOTE | 2018-12-03 14:34 | CT Scan Report ---
CT SCAN OF THE BRAIN WITHOUT IV CONTRAST CLINICAL HISTORY: Change in mental status. COMPARISON STUDY: No priors. TECHNIQUE: Unenhanced axial CT scan of the brain is performed from the vertex to the skull base. A d ose lowering technique was utilized adhering to the principles of ALARA. CT DOSE: 729.78 mGycm FINDINGS: Brain parenchyma: The brain parenchyma is normal in appearance. There is no hemorrhage, mass effect, or evidence of acute territorial ischemia by CT criteria. Harden-white matter differentiation is preser young. No extra-axial fluid collection is seen. Ventricles, sulci, cisterns: Normal in configuration. Intracranial vasculature: There is atherosclerotic calcification of the cavernous carotid arteries. Calvarium: Unremarkable. Sinuses and mastoids: The visualized paranasal sinuses are clear. The mastoid air cells are well pneu matized. Orbits: The bony orbits are grossly intact. There are bilateral ocular lens implants. IMPRESSION: There is no hemorrhage, mass effect, or evidence of acute territorial ischemia by CT gregorio siddiqui. Electronically signed by: Mikhail Prater M.D. 12/03/2018 2:33 PM
[2018-12-03 15:03] LABS: Appearance Urine Clear (Clear); Bilirubin Urine Negative (Negative); Blood Urine Negative (Negative); Color Urine Yellow; Glucose Urine UA Negative (Negative); Ketones Urine Negative (Negative); Leukocyte Esterase Urine Negative (Negative); Nitrite Urine Negative (Negative); Protein Urine Negative (Negative); Specific Gravity Urine 1.013 (1.000-1.030); Urobilinogen Urine Negative (Negative)
--- NOTE | 2018-12-03 17:02 | History & Physical Report ---
Date of Service December 03, 2018 Assessment & Plan (1) Sepsis: Admit to inpatient on telemetry Blood culture pending, urine culture pending Current condition could be related to prior admission and gram-negative septicemia with Klebsiella pneumonia The origin of infection is not completely clear clear. The origin could be related to the cholangiocarcinoma. Patient was treated in the ER with ceftriaxone 2 mg IV which appears to be sensitive to Klebsiella pneumoniae from the previous blood culture. Continue IV hydration Follow-up daily CBC, CMP, BNP pending. CT abdomen and pelvis with IV contrast pending. DVT prophylaxis with Lovenox 40 mg SC daily Full code Present on Admission?: Yes (2) Confusion: Resolved by the time of examination Present on Admission?: Yes (3) Gram-negative bacteremia: As above Present on Admission?: Yes (4) Hypothyroidism: Continue home dose of levothyroxine 88 MCG p.o. every morning Present on Admission?: Yes (5) Type II diabetes mellitus: Glycemic control per pharmacy Present on Admission?: Yes (6) Chronic pain: Continue nortriptyline 100 mg p.o. nightly, oxycodone 5 mg p.o. every 6 as needed, pregabalin 75 mg p.o. 3 times daily, trazodone 100 mg p.o. nightly. (7) Hypertension: Continue triamterene hydrochlorothiazide 1 tablet p.o. q. a.m. Present on Admission?: Yes (8) Cholangiocarcinoma: Patient is followed by Dr. Guy at [facility] in [place]. She is taking Xeloda twice daily in a week on/week of cycle. Her imaging from November 23 show progressive disease but there is no sign of biliary tract obstruction on the CT. LFTs are stable with exception for elevated alkaline phosphatase 163, patient supposed to see on December 05. Present on Admission?: Yes History of Present Illness Chief Complaint: Confusion Primary Care Provider: Ace Ruvalcaba MD Patient is a 63 years old female with past medical history of cholangiocarcinoma, hypertension, hyperlipidemia, GERD, gout, hypothyroidism, liver cirrhosis, type 2 diabetes mellitus, who presents to the emergency room with a complaint of confusion noted by her daughter.Patient had undergone 3 rounds of IV chemotherapy under the direction of an oncologist at [facility] Dr. Chance Guy, and she supposed to have another course of chemotherapy scheduled for December 05. In the meantime patient was admitted at [facility] for severe sepsis and borderline septic shock on November 23, 2018. At that time patient grew gram-negative bacteriuria secondary to Klebsiella. The source of infection was never found and she was treated with Vanco in the beginning and the switched Zosyn and discharged home cefdinir 300 BID for 12 days.( From November 26). Today patient came in complaining of similar symptoms. She denies nausea vomiting chest pain shortness of breath abdominal pain frequency urgency hemoptysis hematemesis dysuria and pyuria. Labs are reviewed: White blood cell 13.35 which is increased in comparison to November 26 and white blood cell count was 8.91. Patient also has neutrophilia with left shift 9.77. No bands hemoglobin 9.6, hematocrit 30.9, platelet count of 303, PT 13.2, INR 1.3. Sodium 134, potassium 3.4 chloride 95 anion gap 11 BUN 9 creatinine 0.67 GFR 92 lactate 2.2 glucose 189 magnesium 1.9 bilirubin 0.4 AST 20, ALT 13 alkaline phosphatase 163 ammonia 19 troponin 0 0.015, albumin 2.3 procalcitonin 0.8 which could be interpreted as a sepsis. Urine HEAD: No headache, dizziness, or head injury. CT head shows no hemorrhage, mass affect no evidence of acute territorial ischemia by CT criteria. Chest x-ray show cardiomegaly and emphysema with no acute cardiopulmonary abnormality. A right- sided central venous infusion port has been removed from previous. Low lung volumes. The case was discussed and decision was made to admit patient to inpatient on telemetry for further evaluation and treatment of sepsis. Allergies Allergy/AdvReac Type Severity Reaction Status Date / Time metoclopramide Allergy Intermediate FACIAL AND Verified 12/03/18 12:40 FEET SWELLING, BONE PAIN silicone Allergy Intermediate SKIN MIRANDA Verified 12/03/18 12:40 celecoxib Allergy Mild RASH Verified 12/03/18 12:40 valsartan Allergy Unknown Verified 12/03/18 12:40 atorvastatin AdvReac Intermediate headaches Verified 12/03/18 12:40 Home Medications Home Medications Medication Instructions Recorded Confirmed Type allopurinol 100 mg PO QAM 12/14/17 12/03/18 History levothyroxine 88 mcg PO QAM 12/14/17 12/03/18 History nortriptyline 100 mg PO HS 12/14/17 12/03/18 History omeprazole 20 mg PO QAM 12/14/17 12/03/18 History trazodone 100 mg PO HS 12/14/17 12/03/18 History lorazepam 0.5 mg PO DAILY PRN 09/09/18 12/03/18 History pregabalin [Lyrica] 75 mg PO TID 09/09/18 12/03/18 History prochlorperazine maleate 10 mg PO Q6H PRN 09/09/18 12/03/18 History cinnamon bark [Cinnamon] 1,000 mg PO DAILY 11/23/18 12/03/18 History cefdinir 300 mg PO BID 12 Days #24 cap 11/26/18 12/03/18 Rx magnesium oxide 400 mg PO DAILY #30 tab 11/26/18 12/03/18 Rx oxycodone 5 mg PO Q6H PRN #30 tab 11/26/18 12/03/18 Rx albuterol sulfate HFA 90 2 puff INHALATION Q4H PRN gm 11/30/18 12/03/18 History mcg/actuation aerosol inhaler cholecalciferol (vitamin D3) 1,000 2,000 units PO QAM cap 11/30/18 12/03/18 History unit capsule docusate sodium 100 mg capsule 100 mg PO TID cap 11/30/18 12/03/18 History glimepiride 1 mg tablet 1 mg PO QAM #30 tab 11/30/18 12/03/18 History capecitabine [Xeloda] 1,500 mg PO BID 12/03/18 12/03/18 History triamterene-hydrochlorothiazid 1 tab PO QAM 12/03/18 12/03/18 History Past Med/Surg History Medical History Severe sepsis (Acute) Lung cancer (Chronic) s/p left lower lobectomy Neuropathy (Chronic) [place] feet Asthma (Chronic) Chronic obstructive pulmonary disease (Chronic) never uses inhaler Gout (Chronic) Hypothyroid (Chronic) Hypertension (Chronic) Hyperlipidemia (Chronic) GERD (gastroesophageal reflux disease) (Chronic) Hiatal hernia (Chronic) Anxiety (Chronic) Depression (Chronic) Borderline diabetes mellitus (Chronic) Fatty liver Osteoarthritis (Chronic) Cholangiocarcinoma (Chronic) diagnosed 2019 - followed by [facility] Encounter for pre-operative examination (Resolved) Port-A-Cath in place Surgical History History of lobectomy of lung (Chronic) left lower lobe. [facility] 05/04/17. MAC 3, ETT 7.5, no issues noted in anesthesia record. H/O exploratory laparotomy (Resolved) for abdominal pain, found hiatal hernia History of arthroscopy of right knee (Resolved) History of cataract surgery (Resolved) History of section (Resolved) History of colonoscopy (Resolved) History of esophagogastroduodenoscopy (EGD) (Resolved) History of laminectomy (Resolved) History of surgery (Resolved) removal of "eccrine" gland History of total abdominal hysterectomy and bilateral salpingo-oophorectomy (Resolved) Hx of cholecystectomy (Resolved) History of laparoscopy 05/2018 [facility] - lymph node biopsy, liver biopsy Family History Brother Family history of lung cancer Sister Family history of lung cancer sister Family history of kidney cancer Family history of skin cancer Family history of breast cancer Family history of uterine cancer Family history of ovarian cancer Mother , age 89 "old age" No problems noted. 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 [employer] Places Feels Safe at Home: Yes Smoking Status: Former smoker Tobacco Type: cigarettes ; Cigarettes Per Day: QUIT 15 YR AGO, PREVIOUS 1/2 PPD X 25 YR ; Second Hand Exposure: No ; Hx Alcohol Use: No Hx Substance Use: No Review of Systems Review of Systems: All systems reviewed & are unremarkable except as noted in HPI & below Physical Exam Constitutional: WD/WN, vitals as above well developed and + ill appearing Eyes: PERRL, conjunctivae normal, anicteric sclerae ENMT: external ear and nose normal, oropharynx normal Neck: trachea midline, no thyromegaly Respiratory: normal respiratory effort, lungs clear to auscultation Cardiovascular: Heart Sounds: normal S1 and normal S2 Palpation: + palpable S3 Gastrointestinal (Abdomen): normal bowel sounds, soft, nontender, no hepatosplenomegaly Musculoskeletal: no cyanosis or clubbing, extremities motor strength 5/5 Skin: no rashes, warm and dry Neurologic: patellar DTR's 2+ bilat, sensation intact Psychiatric: By the time when I saw the patient she was alert and oriented and answers to all questions asked appropriately and correctly. Lymphatic: no cervical or axillary lymphadenopathy Results & Data Vital Signs (Past 12 Hours) Vital Signs Temp Pulse Resp BP Pulse Ox 12/03/18 15:00 101 H 24 122/76 97 12/03/18 14:51 103 H 19 119/77 94 12/03/18 14:33 118 H 21 12/03/18 13:30 104 H 19 94 12/03/18 13:00 104 H 18 94 12/03/18 12:53 104 H 20 12/03/18 12:40 94 12/03/18 11:25 36.8 C 111 H 18 105/69 96 Code Status & VTE Plan Code Status Full code VTE Prophylaxis Plan VTE Prophylaxis will be ordered: Yes PG Care Time/CCT Total # of Minutes Spent Total Time Spent with Patient: Total time spent is greater than 50% in coordination of care (as documented) at patient's floor/unit and/or counseling patient: (1) Sepsis Sepsis acute organ dysfunction status: without acute organ dysfunction Sepsis type: sepsis due to unspecified organism Qualified Code(s): A41.9 - Sepsis, unspecified organism (2) Hypothyroidism Hypothyroidism type: acquired Qualified Code(s): E03.9 - Hypothyroidism, unspecified
[2018-12-03] MEDS ORDERED: NovoLIN-R INSULIN PER UNIT CHARGE IV STA (18:06)
--- NOTE | 2018-12-03 18:22 | Emergency Department Note ---
Entered by Gail Sweeney acting as a scribe for Mikhail Bates MD History of Present Illness General Chief complaint: Confusion Stated complaint: CONFUSION- CANCER PT- HX SEPSIS Time Seen by Provider: 12/03/18 11:56 Source: patient and family History of Present Illness Provider complaint: Confusion Onset (ago): day(s) Location: head, chest and foot Pain Consistency: + constant Maximum Pain Intensity: 2 Quality: + constant Associated symptoms: + shortness of breath and + other (Positive: feet pain, tiredness, confusion, shakiness, sleeping a lot. Negative: diarrhea, urinary symptoms ); no fever/chills and no nausea/vomiting The patient is a 63 year old female with past medical history of gram-negative bacteremia, severe sepsis, abdominal pain, HTN, GERD, who presents to the ED with complaints of constant tiredness and confusion that started a few days ago. The patient reports she has been sleeping a lot due to being tired. She additionally notes she has been shaking and her feet hurt a lot. The patient notes she also has shortness of breath. She reports she was in the hospital for an infection recently and her access port was removed. The patient notes she is currently not getting chemotherapy. She additionally reports she has an appoi ntment with her oncologist on Tuesday. The patient states she has been taking Ceftin. She notes she has positional shortness of breath and it hurts to breathe. The daughter reports the patient has been more confused. She reports she was talking to her on the phone earlier this morning she told her to stop talking so she could listen to other people talk, however, those people were not present. The patient denies fever, chills, diarrhea, nausea, vomiting, or urinary symptoms. Home Medications Home Medications Medication Instructions Recorded Confirmed Type allopurinol 100 mg PO QAM 12/14/17 12/03/18 History levothyroxine 88 mcg PO QAM 12/14/17 12/03/18 History nortriptyline 100 mg PO HS 12/14/17 12/03/18 History omeprazole 20 mg PO QAM 12/14/17 12/03/18 History trazodone 100 mg PO HS 12/14/17 12/03/18 History lorazepam 0.5 mg PO DAILY PRN 09/09/18 12/03/18 History pregabalin [Lyrica] 75 mg PO TID 09/09/18 12/03/18 History prochlorperazine maleate 10 mg PO Q6H PRN 09/09/18 12/03/18 History cinnamon bark [Cinnamon] 1,000 mg PO DAILY 11/23/18 12/03/18 History cefdinir 300 mg PO BID 12 Days #24 cap 11/26/18 12/03/18 Rx magnesium oxide 400 mg PO DAILY #30 tab 11/26/18 12/03/18 Rx oxycodone 5 mg PO Q6H PRN #30 tab 11/26/18 12/03/18 Rx albuterol sulfate HFA 90 2 puff INHALATION Q4H PRN gm 11/30/18 12/03/18 History mcg/actuation aerosol inhaler cholecalciferol (vitamin D3) 1,000 2,000 units PO QAM cap 11/30/18 12/03/18 History unit capsule docusate sodium 100 mg capsule 100 mg PO TID cap 11/30/18 12/03/18 History glimepiride 1 mg tablet 1 mg PO QAM #30 tab 11/30/18 12/03/18 History capecitabine [Xeloda] 1,500 mg PO BID 12/03/18 12/03/18 History triamterene-hydrochlorothiazid 1 tab PO QAM 12/03/18 12/03/18 History Allergies Allergy/AdvReac Type Severity Reaction Status Date / Time metoclopramide Allergy Intermediate FACIAL AND Verified 12/03/18 12:40 FEET SWELLING, BONE PAIN silicone Allergy Intermediate SKIN MIRANDA Verified 12/03/18 12:40 celecoxib Allergy Mild RASH Verified 12/03/18 12:40 valsartan Allergy Unknown Verified 12/03/18 12:40 atorvastatin AdvReac Intermediate headaches Verified 12/03/18 12:40 Past Med/Surg History Medical History Severe sepsis (Acute) Lung cancer (Chronic) s/p left lower lobectomy Neuropathy (Chronic) [place] feet Asthma (Chronic) Chronic obstructive pulmonary disease (Chronic) never uses inhaler Gout (Chronic) Hypothyroid (Chronic) Hypertension (Chronic) Hyperlipidemia (Chronic) GERD (gastroesophageal reflux disease) (Chronic) Hiatal hernia (Chronic) Anxiety (Chronic) Depression (Chronic) Borderline diabetes mellitus (Chronic) Fatty liver Osteoarthritis (Chronic) Cholangiocarcinoma (Chronic) diagnosed 2019 - followed by [facility] Encounter for pre-operative examination (Resolved) Port-A-Cath in place Surgical History History of lobectomy of lung (Chronic) left lower lobe. [facility] 05/04/17. MAC 3, ETT 7.5, no issues noted in anesthesia record. H/O exploratory laparotomy (Resolved) for abdominal pain, found hiatal hernia History of arthroscopy of right knee (Resolved) History of cataract surgery (Resolved) History of section (Resolved) History of colonoscopy (Resolved) History of esophagogastroduodenoscopy (EGD) (Resolved) History of laminectomy (Resolved) History of surgery (Resolved) removal of "eccrine" gland History of total abdominal hysterectomy and bilateral salpingo-oophorectomy (Resolved) Hx of cholecystectomy (Resolved) History of laparoscopy 05/2018 [facility] - lymph node biopsy, liver biopsy Family History Brother Family history of lung cancer Sister Family history of lung cancer sister Family history of kidney cancer Family history of skin cancer Family history of breast cancer Family history of uterine cancer Family history of ovarian cancer Mother , age 89 "old age" No problems noted. 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 and A total of 10 systems reviewed and were otherwise negative Physical Exam Vital Signs Vital Signs - 24 hr 09/08/19 11:25 12/03/18 12:40 12/03/18 12:53 Temperature 36.8 C Temperature Source Oral Sepsis Recent Fever Within 48 Hours No Sepsis New/Unexplained Change in Mental Status No Sepsis Action Taken by Nursing No Action Required Pulse Rate 111 H 104 H Pulse Rate from SpO2 Sensor Respiratory Rate 18 20 Blood Pressure 105/69 Blood Pressure Mean 81 Pulse Oximetry 96 94 Oxygen Delivery Method Room Air Room Air 12/03/18 13:00 12/03/18 13:30 12/03/18 14:33 Temperature Temperature Source Sepsis Recent Fever Within 48 Hours Sepsis New/Unexplained Change in Mental Status Sepsis Action Taken by Nursing Pulse Rate 104 H 104 H 118 H Pulse Rate from SpO2 Sensor 104 H 104 H Respiratory Rate 18 19 21 Blood Pressure Blood Pressure Mean Pulse Oximetry 94 94 Oxygen Delivery Method 12/03/18 14:51 12/03/18 15:00 12/03/18 15:30 Temperature Temperature Source Sepsis Recent Fever Within 48 Hours Sepsis New/Unexplained Change in Mental Status Sepsis Action Taken by Nursing Pulse Rate 103 H 101 H 103 H Pulse Rate from SpO2 Sensor 100 H 101 H 102 H Respiratory Rate 19 24 19 Blood Pressure 119/77 122/76 129/80 Blood Pressure Mean 91 91 96 Pulse Oximetry 94 97 95 Oxygen Delivery Method 12/03/18 16:00 12/03/18 16:30 Temperature Temperature Source Sepsis Recent Fever Within 48 Hours Sepsis New/Unexplained Change in Mental Status Sepsis Action Taken by Nursing Pulse Rate 103 H 103 H Pulse Rate from SpO2 Sensor 103 H 103 H Respiratory Rate 20 22 Blood Pressure 124/79 124/83 Blood Pressure Mean 94 96 Pulse Oximetry 94 93 Oxygen Delivery Method GENERAL: Patient is in no acute distress. HEENT: No acute trauma, normocephalic atraumatic, mucous membranes moist, no nasal congestion, no scleral icterus. NECK: No stridor, no adenopathy, no meningismus, trachea is midline. LUNGS: No respiratory distress. Few crackles throughout. No wheezing. Breath sounds are full. HEART: Mildly tachycardia with a regular rhythm. No murmurs ABDOMEN: Soft, nontender, bowel sounds positive, no hernias, no peritonitis. BACK: No flank discomfort to percussion. EXTREMITIES: No cyanosis or edema, full range of motion of all the joints without pain or difficulty, no signs for acute trauma. NEUROLOGIC: Oriented x 3, no acute motor or sensory deficits, no focal weakness. SKIN: No rash, no jaundice, no diaphoresis. Course 1159: I reviewed the patients old records. The patient was discharged on the first november. She had gram negative sepsis and a source was never found. They remover the patients access port. A phone call was made on November 29 to the patients PCP and she was doing well. 1200: The patient was evaluated in room B8. A complete history and physical exam was performed. 1428: I discussed the patient's case with Dr. Landers, [facility] Hospitalist. She will evaluate the patient for further management. 1436: Upon reevaluation, the patient is resting comfortably. I discussed laboratory and radiographic results with her. The patient verbalized agreement of the treatment plan. The patient will be evaluated for further management and care. Administered Medications Sodium Chloride (Nss 1000ml) 1,000 mls @ 80 mls/hr IV .[id number] AUREA Stop: 01/02/19 18:22 Last Admin: 12/03/18 19:11 Dose: 80 mls/hr Documented by: [id number] Ioversol (Optiray 320 100ml) 91 ml IV ONCE PRN PRN Reason: Interaction Checking Stop: 12/07/18 20:04 Last Admin: 12/03/18 20:05 Dose: 91 ml Documented by: [id number] Discontinued Medications Sodium Chloride (Nss) 500 mls @ 999 mls/hr IV .Q31M AUREA Stop: 12/03/18 12:45 Last Infusion: 12/03/18 15:14 Dose: 0 mls/hr Documented by: [id number] Admin: 12/03/18 13:58 Dose: 999 mls/hr Documented by: [id number] Ceftriaxone Sodium (Rocephin) 2,000 mg in 70 mls @ 140 mls/hr IV NOW STA Stop: 12/03/18 13:46 Last Infusion: 12/03/18 15:15 Dose: 0 mls/hr Documented by: [id number] Admin: 12/03/18 13:59 Dose: 140 mls/hr Documented by: [id number] Insulin Human Regular (Novolin R U-100 Per Unit) 10 units IV NOW STA Stop: 12/03/18 18:07 Last Admin: 12/03/18 19:35 Dose: Not Given Documented by: [id number] Ondansetron HCl (Zofran) 4 mg IV NOW STA Stop: 12/03/18 12:06 Last Admin: 12/03/18 13:58 Dose: 4 mg Documented by: [id number] Medical Decision Making Differential Diagnosis Differential Diagnosis: Dehydration, electrolyte imbalance, anemia, UTI, pneumonia, sepsis, liver or renal failure, stroke, intracranial bleeding. Medical Records Attestation: I reviewed the patient's medical records. Home Medications Current Medication List: was personally reviewed by me Laboratory Data Attestation: I reviewed the patient's lab results. Result diagrams: 12/03/18 12:40 12/03/18 12:40 Lab Results 12/03/18 12/03/18 12/03/18 Range/Units 12:40 12:40 12:40 WBC 13.35 H (4.8-10.8) K/uL RBC 3.64 L (4.2-5.4) M/uL Hgb 9.6 L (12.0-16.0) g/dL Hct 30.9 L (37-47) % MCV 84.9 (80-100) fL MCH 26.4 (25-34) pg MCHC 31.1 L (32-36) g/dL RDW Std Deviation 57.4 H (36.4-46.3) fL RDW Coeff of Harish 18.5 H (11.5-14.5) % Plt Count 303 (130-400) K/uL MPV 10.3 (7.4-10.4) fL Immature Gran % (Auto) 0.3 % Neut % (Auto) 73.2 % Lymph % (Auto) 18.8 % [place] % (Auto) 6.7 % Eos % (Auto) 0.6 % Baso % (Auto) 0.4 % Immature Gran # (Auto) 0.04 H (0.00-0.02) K/uL Neut # (Auto) 9.77 H (1.4-6.5) K/uL Lymph # (Auto) 2.51 (1.2-3.4) K/uL [place] # (Auto) 0.89 H (0.11-0.59) K/uL Eos # (Auto) 0.08 (0-0.5) K/uL Baso # (Auto) 0.06 (0-0.2) K/uL Sodium 134 L (136-145) mmol/L Potassium 3.4 L (3.5-5.1) mmol/L Chloride 95 L (98-107) mmol/L Carbon Dioxide 28 (21-32) mmol/L Anion Gap 11.0 (3-11) BUN 9 (7-18) mg/dl Creatinine 0.67 (0.6-1.2) mg/dl Est Cr Clr Drug Dosing 96.9 ml/min Est GFR ( Amer) 106.9 Est GFR (Non-Af Amer) 92.2 BUN/Creatinine Ratio 13.3 (10-20) Glucose 189 H (70-99) mg/dl Lactate (0.4-2.0) mmol/L Calcium 8.8 (8.5-10.1) mg/dl Magnesium 1.9 (1.8-2.4) mg/dl Total Bilirubin 0.4 (0.2-1) mg/dl AST 20 (15-37) U/L ALT 13 (12-78) U/L Alkaline Phosphatase 163 H (45-117) U/L Ammonia (11-32) umol/L Troponin I < 0.015 (0-0.045) ng/ml Total Protein 8.0 (6.4-8.2) gm/dl Albumin 2.3 L (3.4-5.0) gm/dl Globulin 5.7 H (2.5-4.0) gm/dl Albumin/Globulin Ratio 0.4 L (0.9-2) Procalcitonin 0.80 H (0-0.5) ng/ml TSH 3.590 (0.300-4.500) uIu/ml Urine Color Urine Appearance (Clear) Urine pH (4.5-7.5) Ur Specific [place] (1.000-1.030) Urine Protein (Negative) Urine Glucose (UA) (Negative) Urine Ketones (Negative) Urine Blood (Negative) Urine Nitrite (Negative) Urine Bilirubin (Negative) Urine Urobilinogen (Negative) Ur Leukocyte Esterase (Negative) 12/03/18 12/03/18 12/03/18 Range/Units 12:50 12:50 14:40 WBC (4.8-10.8) K/uL RBC (4.2-5.4) M/uL Hgb (12.0-16.0) g/dL Hct (37-47) % MCV (80-100) fL MCH (25-34) pg MCHC (32-36) g/dL RDW Std Deviation (36.4-46.3) fL RDW Coeff of Harish (11.5-14.5) % Plt Count (130-400) K/uL MPV (7.4-10.4) fL Immature Gran % (Auto) % Neut % (Auto) % Lymph % (Auto) % [place] % (Auto) % Eos % (Auto) % Baso % (Auto) % Immature Gran # (Auto) (0.00-0.02) K/uL Neut # (Auto) (1.4-6.5) K/uL Lymph # (Auto) (1.2-3.4) K/uL [place] # (Auto) (0.11-0.59) K/uL Eos # (Auto) (0-0.5) K/uL Baso # (Auto) (0-0.2) K/uL Sodium (136-145) mmol/L Potassium (3.5-5.1) mmol/L Chloride (98-107) mmol/L Carbon Dioxide (21-32) mmol/L Anion Gap (3-11) BUN (7-18) mg/dl Creatinine (0.6-1.2) mg/dl Est Cr Clr Drug Dosing ml/min Est GFR ( Amer) Est GFR (Non-Af Amer) BUN/Creatinine Ratio (10-20) Glucose (70-99) mg/dl Lactate 2.2 H* (0.4-2.0) mmol/L Calcium (8.5-10.1) mg/dl Magnesium (1.8-2.4) mg/dl Total Bilirubin (0.2-1) mg/dl AST (15-37) U/L ALT (12-78) U/L Alkaline Phosphatase (45-117) U/L Ammonia 19.0 (11-32) umol/L Troponin I (0-0.045) ng/ml Total Protein (6.4-8.2) gm/dl Albumin (3.4-5.0) gm/dl Globulin (2.5-4.0) gm/dl Albumin/Globulin Ratio (0.9-2) Procalcitonin (0-0.5) ng/ml TSH (0.300-4.500) uIu/ml Urine Color Yellow Urine Appearance Clear (Clear) Urine pH 7.0 (4.5-7.5) Ur Specific [place] 1.013 (1.000-1.030) Urine Protein Negative (Negative) Urine Glucose (UA) Negative (Negative) Urine Ketones Negative (Negative) Urine Blood Negative (Negative) Urine Nitrite Negative (Negative) Urine Bilirubin Negative (Negative) Urine Urobilinogen Negative (Negative) Ur Leukocyte Esterase Negative (Negative) Imaging Data Radiologist's Impression: Radiology results as stated below per my review and the radiologist's interpretation: SINGLE VIEW CHEST CLINICAL HISTORY: Generalized weakness. FINDINGS: An AP, portable, upright chest radiograph is compared to chest x-ray and chest CT dated 11/23/2017. A right-sided central venous infusion port has been removed from previous. The heart is mildly enlarged and there is atherosclerotic calcification of the thoracic aorta. Emphysema and chronic interstitial thickening are similar to previous. Postoperative change is noted at the right apex. There are low lung volumes with bibasilar atelectasis. No airspace consolidation or pleural effusion is identified. No pneumothorax is seen. The skeletal structures are osteopenic. The bony thorax is grossly intact. Cholecystectomy clips are noted in the right upper quadrant. IMPRESSION: 1. Cardiomegaly and emphysema with no acute cardiopulmonary abnormality. 2. A right-sided central venous infusion port has been removed from previous. 3. Low lung volumes. Electronically signed by: Mikhail Prater M.D. 12/03/2018 1:[address] SCAN OF THE BRAIN WITHOUT IV CONTRAST CLINICAL HISTORY: Change in mental status. COMPARISON STUDY: No priors. TECHNIQUE: Unenhanced axial CT scan of the brain is performed from the vertex to the skull base. A dose lowering technique was utilized adhering to the principles of ALARA. CT DOSE: 729.78 mGycm FINDINGS: Brain parenchyma: The brain parenchyma is normal in appearance. There is no hemorrhage, mass effect, or evidence of acute territorial ischemia by CT criteria. Harden-white matter differentiation is preserved. No extra-axial fluid collection is seen. Ventricles, sulci, cisterns: Normal in configuration. Intracranial vasculature: There is atherosclerotic calcification of the cavernous carotid arteries. Calvarium: Unremarkable. Sinuses and mastoids: The visualized paranasal sinuses are clear. The mastoid air cells are well pneumatized. Orbits: The bony orbits are grossly intact. There are bilateral ocular lens implants. IMPRESSION: There is no hemorrhage, mass effect, or evidence of acute territorial ischemia by CT criteria. Electronically signed by: Mikhail Prater M.D. 12/03/2018 2:33 PM ECG Data Attestation: I personally reviewed and interpreted this ECG as follows: Indication: SOB/dyspnea Rate (beats per minute): 104 Rhythm: sinus tachycardia Findings: + other (Old inferior infarct ) and + RBBB; no ST elevation and no acute ischemic change Comparison ECG Date: from (11/25/18) Change: no significant change Blood Pressure Blood Pressure Findings: Normal blood pressure Blood Pressure Disposition: did not require urgent referral MDM Narrative There is is a mild leukocytosis at 13,000, this could be consistent with infection. The patient is anemic, however this is baseline looking back at previous testing. No significant electrolyte abnormality or kidney failure. Lactic acid level was somewhat elevated, consistent with possible i nfection/sepsis. Alk phos slightly elevated, no other liver enzyme elevations. The patient appeared to be in a euthyroid state. EKG showed a sinus rhythm, no acute ischemia. Cardiac enzyme testing x1 is not consistent with acute cardiac injury. Procalcitonin level was elevated making bacterial infection more likely. Chest film did not show pneumonia. Urinalysis did not show evidence for infection. Brain CT shows no acute bleed or mass-effect. Blood cultures are pending. Patient received IV Zofran, IV saline, the ceftriaxone. She does seem to be resting comfortably. The patient presents with weakness, fatigue. She has a white count elevation. She was just in the hospital for gram-negative bacteremia, no source was found. I am concerned she is redeveloping the bacteremia. A hospital stay is warranted. The source for this potential infection is not clear. I did speak to the patient and case management. The on-call hospitalist was consulted. Impression & Plan Confusion, Leukocytosis, Weakness, History of sepsis Discharge Plan Visit Data *Final* Discharge Date/Time: 12/03/18 18:32 Chief Complaint: Confusion Stated Complaint: CONFUSION- CANCER PT- HX SEPSIS ED Provider: Mikhail Bates Discharge Problem: Confusion, Leukocytosis, Weakness, History of sepsis Patient Disposition: Admitted As Inpatient Discharge Instructions Interventions: ED Discharge Assessment Last Done: 12/03/18 18:32 Discharge Problem: Leukocytosis Qualifiers: Leukocytosis type: unspecified Qualified Code(s): D72.829 - Elevated white blood cell count, unspecified The scribe's documentation has been prepared under my direction and personally reviewed by me in its entirety. I confirm that the note above accurately reflects all work, treatment, procedures, and medical decision making performed by me.
[2018-12-03] MEDS ORDERED: ZOLPIDEM TARTRATE 5 MG TAB PO PRN (18:23)
[2018-12-03] MEDS ORDERED: PROCHLORPERAZINE MALEATE 10 MG TAB PO PRN (18:23)
[2018-12-03] MEDS ORDERED: ALBUTEROL HFA 8 GM INHALER INH PRN (18:23)
[2018-12-03] MEDS ORDERED: MAGNESIUM HYDROXIDE SUSP 30 ML UDC PO PRN (18:23)
[2018-12-03] MEDS ORDERED: ACETAMINOPHEN 325 MG TAB PO PRN (18:23)
[2018-12-03] MEDS ORDERED: SODIUM CHLORIDE 0.9% 1000ML 1,000 ML IV SCH (18:23)
[2018-12-03] MEDS ORDERED: ALUMINUM/MAGNESIUM SUSP 30 ML UDC PO PRN (18:23)
[2018-12-03] MEDS ORDERED: LORazepam 0.5 MG TAB PO PRN (18:23)
[2018-12-03] MEDS ORDERED: IOVERSOL 100ml IV PRN (20:05)
--- NOTE | 2018-12-03 20:39 | CT Scan Report ---
CT SCAN OF THE ABDOMEN AND PELVIS WITH IV CONTRAST CLINICAL HISTORY: Left-sided abdominal pain. Reported history of lung cancer. Known metastatic dise ase. COMPARISON STUDY: Abdominal CT dated 11/23/2018. TECHNIQUE: Following the IV administration of 91 cc of Optiray 320, CT scan of the abdomen and pelvi s is performed from the lung bases to the proximal femora. Images are reviewed in the axial, sagittal , and coronal planes. IV contrast was administered without complication. A dose lowering technique wa s utilized adhering to the principles of ALARA. CT DOSE: 756.72 mGy.cm FINDINGS: Lung bases: The heart is normal in size and without pericardial effusion. The coronary arteries are d ensely calcified. Emphysematous change is seen at the lung bases. There is no airspace consolidation or pleural effusion. Dependent atelectasis is noted. A 4 mm pulmonary nodule at the right lung base o n image #30 is unchanged. There is a tiny hiatal hernia. Liver: The contrast-enhanced liver is normal in size. The liver is heterogeneous in attenuation and t here is nodularity of the surface contour. There is no intrahepatic biliary ductal dilatation. The he patic veins and portal veins are patent. Again seen are changes of multifocal hepatic metastatic dise ase. There are approximately 10 lesions identified. The largest is present in the hepatic dome and me asures over 3 cm. These are not appreciably changed from 11/23/2018. Gallbladder: Surgically absent noting clips in the gallbladder fossa. Spleen: Normal in size and attenuation. Pancreas: A large retroperitoneal metastasis involves the body of the pancreas. The pancreatic duct i s normal in caliber. Adrenal glands: The right adrenal gland is normal in appearance. The left adrenal gland is involved b y a large retroperitoneal metastasis. Kidneys: The contrast enhanced kidneys demonstrate mild cortical atrophy and are without hydronephros is. The kidneys enhance symmetrically. Abdominal vasculature: The abdominal aorta is normal in course and caliber noting advanced atheroscle rotic calcification. Bowel: There is mild colonic diverticulosis without CT evidence of acute diverticulitis. No bowel obs truction is seen. The appendix is well-visualized and normal. Peritoneum: There is no intraperitoneal free air or abdominal ascites. Foci of induration/fluid withi n the ventral abdominal wall are likely related to subcutaneous injections. There are least 2 tiny pe ritoneal implants. These are subcentimeter in size and seen in the right upper quadrant on image #178 and in the ventral omentum on image #198. Lymphadenopathy: A large retroperitoneal metastasis on image #154 is unchanged. This measures approxi mately 7 x 5 cm and involves the body of the pancreas and the left adrenal gland. Additional smaller pathologically enlarged epicardial lymph nodes are identified (images #191, #213, and #243). A portac aval node on image #163 measures 3.7 x 1.4 cm. Pelvic viscera: The bladder is distended and grossly unremarkable. Uterus is surgically absent. No ad nexal lesion is seen. Skeletal structures: The skeletal structures are osteopenic. Mild lumbosacral spondylosis is observed . Post laminectomy changes noted at L5. No lytic or blastic lesions are seen. IMPRESSION: 1. There are no acute infectious or inflammatory findings in the abdomen or pelvis and there has been no significant change from 11/23/2018. 2. Multifocal metastatic disease is unchanged from previous. 3. There is multifocal hepatic metastatic disease. 4. There is a large left retroperitoneal metastatic implant which involves the left adrenal gland and the pancreas. Additional pathologically enlarged upper abdominal and retroperitoneal nodes are ident ified. 5. There are tiny peritoneal implants. 6. Emphysema. 7. Additional findings as above. Electronically signed by: Mikhail Prater M.D. 12/03/2018 8:37 PM
[2018-12-03] MEDS: ENOXAPARIN INJ 40 MG/0.4 ML SYR SQ SCH (20:44)
[2018-12-03] MEDS: PREGABALIN 75 MG CAP PO SCH (20:44)
[2018-12-03] MEDS: DOCUSATE SODIUM 100 MG CAP PO SCH (20:45)
[2018-12-03] MEDS: TRAZODONE HCL 100 MG TAB PO SCH (20:45)
[2018-12-03] MEDS: NORTRIPTYLINE HCL 25 MG CAP PO SCH (20:46)
[2018-12-03] MEDS ORDERED: CAPECITABINE 1500 MG PO SCH (21:00)
[2018-12-04] MEDS: LEVOTHYROXINE SODIUM 88 MCG TABLET PO SCH (05:48)
[2018-12-04 07:05] LABS: Basophils # (auto) 0.03 K/uL (0-0.2); Basophils % (auto) 0.3 %; Eosinophils # (auto) 0.07 K/uL (0-0.5); Eosinophils % (auto) 0.7 %; Hemoglobin 8.6 g/dL (12.0-16.0); Immature Granulocytes # (auto) 0.03 K/uL (0.00-0.02); Immature Granulocytes % (auto) 0.3 %; Lymphocytes # (auto) 2.18 K/uL (1.2-3.4); Lymphocytes % (auto) 20.3 %; Mean Corpuscular Hgb Conc 30.7 g/dL (32-36); Mean Corpuscular Volume 84.3 fL (80-100); Mean Platelet Volume 9.7 fL (7.4-10.4); Monocytes # (auto) 0.87 K/uL (0.11-0.59); Monocytes % (auto) 8.1 %; Neutrophils # (auto) 7.58 K/uL (1.4-6.5); Neutrophils % (auto) 70.3 %; Platelet Count 262 K/uL (130-400); RDW Coefficient of Variation 18.4 % (11.5-14.5); RDW Standard Deviation 57.4 fL (36.4-46.3); Red Blood Count 3.32 M/uL (4.2-5.4); White Blood Count 10.76 K/uL (4.8-10.8)
[2018-12-04 07:34] LABS: BUN Creatinine Ratio 13.8 (10-20); Calcium 8.3 mg/dl (8.5-10.1); Creatinine Clr Calc Pharmacy 113.8 ml/min; Est GFR (African American) 114.1; Est GFR (Non-African American) 98.4; Potassium 3.3 mmol/L (3.5-5.1)
[2018-12-04 07:36] LABS: Albumin Globulin Ratio 0.4 (0.9-2); Bilirubin,Total 0.5 mg/dl (0.2-1); Globulin 5.2 gm/dl (2.5-4.0); Total Protein 7.2 gm/dl (6.4-8.2)
[2018-12-04] MEDS: PANTOprazole 40 MG TAB PO SCH (08:47)
[2018-12-04] MEDS: CHOLECALCIFEROL 1,000 UNITS TAB PO SCH (08:47)
[2018-12-04] MEDS: MAGNESIUM OXIDE 400 MG TAB PO SCH (08:47)
[2018-12-04] MEDS: ALLOPURINOL 100 MG TAB PO SCH (08:47)
[2018-12-04] MEDS: TRIAMTERENE/HCTZ 37.5/25MG TAB PO SCH (08:47)
[2018-12-04] MEDS: DOCUSATE SODIUM 100 MG CAP PO SCH ×3 (08:47→21:02)
[2018-12-04] MEDS: PREGABALIN 75 MG CAP PO SCH ×3 (08:51→21:06)
[2018-12-04] MEDS ORDERED: NON-FORMULARY MEDICATION (Cinnamon Bark [Cinnamon] 1,000 MG) PO SCH (09:00)
[2018-12-04] MEDS: POTASSIUM CHLORIDE 20 MEQ TABCR PO SCH ×2 (10:00→21:02)
[2018-12-04] MEDS ORDERED: LORazepam 0.5 MG TAB PO SCH (10:45)
[2018-12-04] MEDS ORDERED: POLYETHYLENE (MIRALAX) 17 GM PACK PO ONE (10:55)
--- NOTE | 2018-12-04 12:02 | Gastrointestinal Consultation ---
Date of Consultation December 04, 2018 Assessment & Plan (1) Confusion: (2) Sepsis: (3) Cholangiocarcinoma: Pt is a 63 y/o female w hx of metastatic cholangiocarcinoma, managed by [facility], admitted confusion. Confusion has now resolved. On eval, CT head, ammonia level unremarkable. She was found to be febrile, has elevated WBC, lactic acid. Infectious workup included UA, CXR which were unremarkable. Blood cx pending. She did have hx of Klebsiella UTI last month and placed on Ceftriaxone antibx currently. Her LFTs showed normal Tbili and trasaminases, alk phos mildly up at 150s. ? possibly biliary source of infection - Will obtain MRCP to r/o cholangitis; f/u after MRCP to see if there's any indication for ERCP - Trend LFTs - Miralax 17g daily for constipation Supervising Physician Co-Signing Physician Notes I performed a history and physical examination of the patient, including specifically on physical exam - soft, nontender abdomen. I have discussed the patient's management with Josy. Please refer to the nurse practitioner's note for the documented findings and plan of care. 63 female patient with metastatic cholangiocarcinoma, admitted with sepsis, had prior UTI. GI consulted to evaluate possible biliary etiology. Plan: Obtain MRCP, if negative then need to evaluate recurrent UTI. History of Present Illness Reason for Consultation: Cholangiocarcinoma; ? biliary source of sepsis Requesting Physician: Dr. Acosta Landers Attending Physician: Dr. She Biggs History of Present Illness Pt is a 63 female w metastatic cholangiocarcinoma, HTN, hyperlipidemia, GERD, gouth, hypothyroidism, liver cirrhosis, DM II who was brought to ED by daughter for confusion. Ammonia level normal , CT head w/o acute findings, CXR showed emphysematous changes and cardiomegaly, nothing acute. She did have leukocytosis, elevated lactic acid, and was febrile last night. She did have hx of Klebsiella UTI back in October. Currently on Ceftriaxone for suspected UTI though UA looks clean. Blood cx pending. In regards to her cholangiocarcinoma, she is managed by Dr. Chance Guy in [facility]. She underwent 3 rounds of chemo but DC'd as she couldn't tolerate it and was supposed to meet w Dr. Seth tomorrow to discuss further plans. She is currently on Xeloda. CT abd/pelvis showed no acute infectious/inflammatory findings, + multifocal mets of her cancer to liver, pancreas, retroperitoneal areas. Her LFTs are normal except mild elevation of her alk phos in 150s. On exam today, she is no longer confused. She denies any CP, SOB, abd pain, n/v. She is c/o constipated, last BM 3 days ago. Allergies Allergy/AdvReac Type Severity Reaction Status Date / Time metoclopramide Allergy Intermediate FACIAL AND Verified 12/03/18 12:40 FEET SWELLING, BONE PAIN silicone Allergy Intermediate SKIN MIRANDA Verified 12/03/18 12:40 celecoxib Allergy Mild RASH Verified 12/03/18 12:40 valsartan Allergy Unknown Verified 12/03/18 12:40 atorvastatin AdvReac Intermediate headaches Verified 12/03/18 12:40 Home Medications Home Medications Medication Instructions Recorded Confirmed Type allopurinol 100 mg PO QAM 12/14/17 12/03/18 History levothyroxine 88 mcg PO QAM 12/14/17 12/03/18 History nortriptyline 100 mg PO HS 12/14/17 12/03/18 History omeprazole 20 mg PO QAM 12/14/17 12/03/18 History trazodone 100 mg PO HS 12/14/17 12/03/18 History lorazepam 0.5 mg PO DAILY PRN 09/09/18 12/03/18 History pregabalin [Lyrica] 75 mg PO TID 09/09/18 12/03/18 History prochlorperazine maleate 10 mg PO Q6H PRN 09/09/18 12/03/18 History cinnamon bark [Cinnamon] 1,000 mg PO DAILY 11/23/18 12/03/18 History cefdinir 300 mg PO BID 12 Days #24 cap 11/26/18 12/03/18 Rx magnesium oxide 400 mg PO DAILY #30 tab 11/26/18 12/03/18 Rx oxycodone 5 mg PO Q6H PRN #30 tab 11/26/18 12/03/18 Rx albuterol sulfate HFA 90 2 puff INHALATION Q4H PRN gm 11/30/18 12/03/18 History mcg/actuation aerosol inhaler cholecalciferol (vitamin D3) 1,000 2,000 units PO QAM cap 11/30/18 12/03/18 History unit capsule docusate sodium 100 mg capsule 100 mg PO TID cap 11/30/18 12/03/18 History glimepiride 1 mg tablet 1 mg PO QAM #30 tab 11/30/18 12/03/18 History capecitabine [Xeloda] 1,500 mg PO BID 12/03/18 12/03/18 History triamterene-hydrochlorothiazid 1 tab PO QAM 12/03/18 12/03/18 History Patient History Medical History Severe sepsis (Acute) Lung cancer (Chronic) s/p left lower lobectomy Neuropathy (Chronic) [place] feet Asthma (Chronic) Chronic obstructive pulmonary disease (Chronic) never uses inhaler Gout (Chronic) Hypothyroid (Chronic) Hypertension (Chronic) Hyperlipidemia (Chronic) GERD (gastroesophageal reflux disease) (Chronic) Hiatal hernia (Chronic) Anxiety (Chronic) Depression (Chronic) Borderline diabetes mellitus (Chronic) Fatty liver Osteoarthritis (Chronic) Cholangiocarcinoma (Chronic) diagnosed 2018 - followed by [facility] Encounter for pre-operative examination (Resolved) Port-A-Cath in place Surgical History History of lobectomy of lung (Chronic) left lower lobe. [facility] 05/04/17. MAC 3, ETT 7.5, no issues noted in anesthesia record. H/O exploratory laparotomy (Resolved) for abdominal pain, found hiatal hernia History of arthroscopy of right knee (Resolved) History of cataract surgery (Resolved) History of section (Resolved) History of colonoscopy (Resolved) History of esophagogastroduodenoscopy (EGD) (Resolved) History of laminectomy (Resolved) History of surgery (Resolved) removal of "eccrine" gland History of total abdominal hysterectomy and bilateral salpingo-oophorectomy (Resolved) Hx of cholecystectomy (Resolved) History of laparoscopy 05/2018 [facility] - lymph node biopsy, liver biopsy Family History Brother Family history of lung cancer Sister Family history of lung cancer sister Family history of kidney cancer Family history of skin cancer Family history of breast cancer Family history of uterine cancer Family history of ovarian cancer Mother , age 89 "old age" No problems noted. 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 [employer] Feels Safe at Home: Yes Safety Concerns: Feels Safe At This Time Smoking Status: Former smoker Tobacco Type: cigarettes ; Cigarettes Per Day: QUIT 15 YR AGO, PREVIOUS 1/2 PPD X 25 YR ; Second Hand Exposure: No ; Hx Alcohol Use: No Hx Substance Use: No Review of Systems Review of Systems: All systems reviewed & are unremarkable except as noted in HPI & below Physical Exam Constitutional: WD/WN, vitals as above well groomed, cooperative and comfortable Eyes: PERRL, conjunctivae normal, anicteric sclerae ENMT: external ear and nose normal, oropharynx normal Respiratory: normal respiratory effort, lungs clear to auscultation Cardiovascular: RRR, no murmur, no edema Gastrointestinal (Abdomen): normal bowel sounds, soft, nontender, no hepatosplenomegaly Skin: no rashes, warm and dry no jaundice Neurologic: Motor/Sensory: no asterixis Psychiatric: A+Ox3, euthymic affect Lymphatic: no lymphedema Results & Data Vital Signs (Past 12 Hours) Vital Signs Temp Pulse Pulse Resp BP Pulse Ox 12/04/18 11:36 37.2 C 102 H 18 104/69 90 12/04/18 09:06 92 H 12/04/18 07:24 36.3 C L 94 H 22 111/75 92 12/04/18 02:53 37.5 C 100 H 16 107/72 94 (1) Sepsis Sepsis acute organ dysfunction status: without acute organ dysfunction Sepsis type: sepsis due to unspecified organism Qualified Code(s): A41.9 - Sepsis, unspecified organism
[2018-12-04] MEDS: cefTRIAXone SODIUM 2,000 MG in DEXTROSE 5% 50 ML IV SCH (13:46)
[2018-12-04] MEDS: OXYCODONE HCL IR 5 MG TAB (IMMEDIATE RELEASE) PO PRN ×2 (14:32→23:08)
--- NOTE | 2018-12-04 18:19 | Magnetic Resonance Report ---
MR MRCP CLINICAL HISTORY: 63 years-old Female presenting with hx of cholangiocarcinoma w met; ? cholangitis. TECHNIQUE: Multisequence, multiplanar MR imaging of the abdomen was performed without the use of intr avenous contrast. Dedicated MRCP protocol was utilized. 3-D volumetric and/or maximum intensity proje ction (MIP) images were subsequently reconstructed for review. IV contrast: None. COMPARISON: CT performed the previous day. FINDINGS: Localizer images: Unremarkable. Lung bases: Normal heart size. No pericardial or pleural effusion. Lung base clear. Liver: Multifocal hepatic lesions (at least 10) are mildly T2 hyperintense and noted in the right and left hepatic lobes. An index lesion in the right hepatic lobe measures over 5 cm in diameter. Biliary: No intrahepatic or extrahepatic biliary ductal dilatation. Gallbladder surgically absent. Pancreas: Multiple masses noted along the dorsal aspect of the pancreatic tail and adjacent to the le ft adrenal gland. No pancreatic ductal dilatation to suggest the presence of a pancreatic mass. Mild diffuse pancreatic atrophy. Spleen: Normal noncontrast appearance. Adrenal glands: Normal noncontrast appearance. Kidneys and ureters: Normal noncontrast appearance. No hydronephrosis. Normal ureters. Bowel: Normal. No bowel obstruction. Peritoneal cavity: No free fluid. Lymph nodes: No gross lymphadenopathy allowing for noncontrast technique. Vasculature: Normal noncontrast appearance. Abdominal wall: Normal. Musculoskeletal: Normal. IMPRESSION: 1. No intrahepatic or extrahepatic biliary ductal dilatation. Postsurgical changes of cholecystectom y. 2. Allowing for noncontrast technique, no gross evidence to suggest a diagnosis of cholangitis, whic h does not exclude the diagnosis. 3. Multifocal hepatic metastatic disease. 4. Retroperitoneal masses along the dorsal pancreas and left adrenal gland, possible conglomerate ly mphadenopathy or implants. Electronically signed by: Stewart Sood M.D. 12/04/2018 6:18 PM
[2018-12-04] MEDS: ENOXAPARIN INJ 40 MG/0.4 ML SYR SQ SCH (21:00)
[2018-12-04] MEDS: NORTRIPTYLINE HCL 25 MG CAP PO SCH (21:03)
[2018-12-04] MEDS: TRAZODONE HCL 100 MG TAB PO SCH (21:03)
--- NOTE | 2018-12-04 21:04 | Hospitalist Progress Note ---
Date of Service December 04, 2018 Assessment & Plan (1) Sepsis: Concern for such. Similar presentation just 10+ days ago when she had klebsiella bacteremia. However she was more ill during that hospital stay with borderline shock. During that hospitalization she was thought to have port infection s/p removal. Thus far blood cx's negative. CT abd/pelvis unchanged from prior CT abd/pelvis (specifically no source of infection). MRCP without signs of biliary obstruction. Chest imaging w/o pneumonia. Urine not suggestive of UTI. Cont broad-spectrum IV abx. Follow cultures. Appreciate GI input. (2) Confusion: Metabolic encephalopathy thought 2nd to underlying infectious process (no specific source found to date however). Supportive care. Avoid benzos. (3) Gram-negative bacteremia: 2nd to klebsiella during prior hospitalization. repeat cx's during that admission were negative. took course of omnicef post-d/c. now with concern for recurrent infection -- cx's this admission negative. follow. (4) Hypothyroidism: Continue home dose of levothyroxine 88 Mcg recent TSH wnl (5) Type II diabetes mellitus: Glycemic control per pharmacy holding oral agents (6) Chronic pain: Continue nortriptyline 100 mg p.o. nightly, oxycodone 5 mg p.o. every 6 as needed, pregabalin 75 mg p.o. 3 times daily, trazodone 100 mg p.o. nightly. Will change oxy to norco 7.5's and use q4h prn pain in abdomen likely due to metastatic lesions (7) Hypertension: Continue triamterene hydrochlorothiazide 1 tablet p.o. q. a.m. controlled (8) Cholangiocarcinoma: Patient is followed by Dr. Guy at [facility] in [place]. She is taking Xeloda twice daily in a week on/week of cycle. Her imaging from November 23 showed progressive disease. LFTs are stable with exception for mildly elevated alkaline phosphatase. Will contact Dr Guy tomorrow. (9) Infection due to Port-A-Cath: s/p removal during last admission sutures intact will remove next 1-2 days (10) DVT prophylaxis: lovenox daily family extensively updated at bedside discussed all test results Subjective patient reports feeling tired also with abdominal pain/flank pain - mainly left side of abdomen denies cough, congestion, fevers, chills family at bedside late in the day - numerous questions Review of Systems Constitutional: + fatigue; no fever, no chills and no body aches Respiratory: no cough and no dyspnea Cardiovascular: no chest pain Gastrointestinal: no abdominal pain, no nausea, no vomiting and no diarrhea/loose stools Physical Exam Constitutional: no acute distress ENMT: external ear and nose normal, oropharynx normal Respiratory: no respiratory distress Auscultation: + crackles (fine, dry); no wheezes Cardiovascular: RRR, no murmur, no edema Heart Sounds: normal S1 and normal S2 Vessels: posterior tibial pulses present and dorsalis pedis pulses present; no JVD Extremities: + edema Chest (Breasts): Additional Comments: former port site - right upper chest - clean Gastrointestinal (Abdomen): Inspection/Auscultation: abdomen not distended Percussion/Palpation: + abdomen tender (left flank/upper quadrant) and abdomen soft; no hepatosplenomegaly Psychiatric: Orientation: alert, oriented to person and oriented to place Results & Data Vital Signs (Past 12 Hours) Vital Signs Temp Pulse Pulse Resp BP Pulse Ox 12/04/18 19:31 36.9 C 105 H 18 113/73 92 12/04/18 15:20 37.1 C 92 H 19 108/71 94 12/04/18 15:07 97 H 12/04/18 11:36 37.2 C 102 H 18 104/69 90 12/04/18 09:06 92 H Laboratory Results Laboratory Results - last 24 hr 12/04/18 12/04/18 06:46 06:46 WBC 10.76 RBC 3.32 L Hgb 8.6 L Hct 28.0 L MCV 84.3 MCH 25.9 MCHC 30.7 L RDW Std Deviation 57.4 H RDW Coeff of Harish 18.4 H Plt Count 262 MPV 9.7 Immature Gran % (Auto) 0.3 Neut % (Auto) 70.3 Lymph % (Auto) 20.3 [place] % (Auto) 8.1 Eos % (Auto) 0.7 Baso % (Auto) 0.3 Immature Gran # (Auto) 0.03 H Neut # (Auto) 7.58 H Lymph # (Auto) 2.18 [place] # (Auto) 0.87 H Eos # (Auto) 0.07 Baso # (Auto) 0.03 Sodium 136 Potassium 3.3 L Chloride 99 Carbon Dioxide 29 Anion Gap 8.0 BUN 8 Creatinine 0.55 L Est Cr Clr Drug Dosing 113.8 Est GFR ( Amer) 114.1 Est GFR (Non-Af Amer) 98.4 BUN/Creatinine Ratio 13.8 Glucose 123 H Calcium 8.3 L Total Bilirubin 0.5 AST 18 ALT 12 Alkaline Phosphatase 145 H Total Protein 7.2 Albumin 2.0 L Globulin 5.2 H Albumin/Globulin Ratio 0.4 L PG Care Time/CCT Total # of Minutes Spent Total Time Spent with Patient: Total time spent is greater than 50% in coordination of care (as documented) at patient's floor/unit and/or counseling patient: (1) Sepsis Sepsis acute organ dysfunction status: without acute organ dysfunction Sepsis type: sepsis due to unspecified organism Qualified Code(s): A41.9 - Sepsis, unspecified organism (2) Hypothyroidism Hypothyroidism type: acquired Qualified Code(s): E03.9 - Hypothyroidism, unspecified (3) Type II diabetes mellitus Diabetes mellitus alf insulin use: without long chain beamer use Diabetes mellitus complication status: without complication Qualified Code(s): E11.9 - Type 2 diabetes mellitus without complications (4) Chronic pain Chronic pain type: chronic pain syndrome Qualified Code(s): G89.4 - Chronic pain syndrome (5) Hypertension Hypertension type: essential hypertension Qualified Code(s): I10 - Essential (primary) hypertension (6) Infection due to Port-A-Cath Encounter type: sequela Qualified Code(s): T80.219S - Unspecified infection due to central venous catheter, sequela
[2018-12-05] MEDS: LEVOTHYROXINE SODIUM 88 MCG TABLET PO SCH (06:22)
[2018-12-05 07:38] LABS: Basophils # (auto) 0.04 K/uL (0-0.2); Basophils % (auto) 0.4 %; Eosinophils # (auto) 0.11 K/uL (0-0.5); Hematocrit (blood only) 28.9 % (37-47); Hemoglobin 8.8 g/dL (12.0-16.0); Immature Granulocytes # (auto) 0.03 K/uL (0.00-0.02); Immature Granulocytes % (auto) 0.3 %; Lymphocytes % (auto) 25.6 %; Mean Corpuscular Hgb Conc 30.4 g/dL (32-36); Mean Corpuscular Volume 86.3 fL (80-100); Monocytes # (auto) 0.95 K/uL (0.11-0.59); Monocytes % (auto) 8.4 %; Neutrophils # (auto) 7.32 K/uL (1.4-6.5); Neutrophils % (auto) 64.3 %; Platelet Count 323 K/uL (130-400); RDW Coefficient of Variation 18.4 % (11.5-14.5); RDW Standard Deviation 57.7 fL (36.4-46.3); Red Blood Count 3.35 M/uL (4.2-5.4); White Blood Count 11.35 K/uL (4.8-10.8)
[2018-12-05 08:13] LABS: Albumin Globulin Ratio 0.4 (0.9-2); Albumin Level 2.1 gm/dl (3.4-5.0); BUN Creatinine Ratio 15.1 (10-20); Bilirubin,Total 0.4 mg/dl (0.2-1); Creatinine Clr Calc Pharmacy 113.5 ml/min; Est GFR (African American) 114.8; Globulin 5.5 gm/dl (2.5-4.0); Total Protein 7.6 gm/dl (6.4-8.2)
[2018-12-05] MEDS: MAGNESIUM OXIDE 400 MG TAB PO SCH (08:34)
[2018-12-05] MEDS: PREGABALIN 75 MG CAP PO SCH ×3 (08:34→21:38)
[2018-12-05] MEDS: POLYETHYLENE (MIRALAX) 17 GM PACK PO PRN (08:34)
[2018-12-05] MEDS: PANTOprazole 40 MG TAB PO SCH (08:34)
[2018-12-05] MEDS: TRIAMTERENE/HCTZ 37.5/25MG TAB PO SCH (08:35)
[2018-12-05] MEDS: ALLOPURINOL 100 MG TAB PO SCH (08:35)
[2018-12-05] MEDS: CHOLECALCIFEROL 1,000 UNITS TAB PO SCH (08:35)
[2018-12-05] MEDS: DOCUSATE SODIUM 100 MG CAP PO SCH ×3 (08:35→21:32)
[2018-12-05] MEDS: POTASSIUM CHLORIDE 20 MEQ TABCR PO SCH ×2 (08:35→21:31)
--- NOTE | 2018-12-05 10:27 | Gastroenterology Progress Note ---
Date of Service December 05, 2018 Assessment & Plan (1) Confusion: (2) Sepsis: (3) Cholangiocarcinoma: Pt is a 63 y/o female w hx of metastatic cholangiocarcinoma, managed by [facility], admitted confusion. Confusion has now resolved. On eval, CT head, ammonia level unremarkable. She was found to be febrile, has elevated WBC, lactic acid. Infectious workup included UA, CXR which were unremarkable. Blood cx w/o growth. She did have hx of Klebsiella bacteremia, UTI last month and placed on C eftriaxone antibx currently. Her LFTs showed normal Tbili and trasaminases, alk phos mildly up at 150s. MRCP obtained yesterday w/o signs of cholangitis. She did have another episode of fever last night. - Defer to hospital for further infectious workup - No further plans from GI standpoint; pls recall as needed - Pt to eventually f/u w her primary oncologist (Dr. Chance Seth at [facility]) upon her discharge Supervising Physician Co-Signing Physician Notes I performed a history and physical examination of the patient, including specifically on physical exam - soft, nontender abdomen. I have discussed the patient's management with Josy. Please refer to the nurse practitioner's note for the documented findings and plan of care. MRCP showed normal biliary tree with no obstruction. Recall GI if needed. Review of Systems Review of Systems: All systems reviewed & are unremarkable except as noted in HPI & below Physical Exam Constitutional: WD/WN, vitals as above well groomed, cooperative and comfortable Eyes: PERRL, conjunctivae normal, anicteric sclerae ENMT: external ear and nose normal, oropharynx normal Respiratory: no respiratory distress and does not use accessory muscles Auscultation: + diminished lung sounds Cardiovascular: RRR, no murmur, no edema Gastrointestinal (Abdomen): normal bowel sounds, soft, nontender, no hepatosplenomegaly Skin: no rashes, warm and dry no jaundice Neurologic: Motor/Sensory: no asterixis Psychiatric: A+Ox3, euthymic affect Lymphatic: no lymphedema Results & Data Vital Signs (Past 12 Hours) Vital Signs Temp Pulse Pulse Resp BP Pulse Ox 12/05/18 09:27 92 H 12/05/18 07:06 37.1 C 95 H 18 105/67 91 12/05/18 06:43 37.0 C 107 H 17 132/79 91 09/10/19 03:03 37.0 C 97 H 20 99/66 L 91 12/05/18 00:46 37.3 C 12/05/18 00:38 101 H 12/04/18 23:28 38.3 C H 102 H 19 110/72 91 (1) Sepsis Sepsis acute organ dysfunction status: without acute organ dysfunction Sepsis type: sepsis due to unspecified organism Qualified Code(s): A41.9 - Sepsis, unspecified organism
[2018-12-05 10:55] LABS: Influenza A virus by PCR Neg for Influ A (Neg); Influenza B virus by PCR Neg for Influ B (Neg)
[2018-12-05] MEDS: cefTRIAXone SODIUM 2,000 MG in DEXTROSE 5% 50 ML IV SCH (14:06)
--- NOTE | 2018-12-05 16:58 | XRay Report ---
XR chest 2V routine CLINICAL HISTORY: fever; pneumonia? Dyspnea COMPARISON STUDY: 12/03/2018 FINDINGS: Stable mild emphysematous change. Mild stable cardiac megaly. Slight increase in density left lung base. This presumably secondary to an inflammatory type process. Lungs otherwise are clear. No evidence for pneumothorax. IMPRESSION: Small focal infiltrate left base. The above report was generated using voice recognition software. It may contain grammatical, syntax or spelling errors. Electronically signed by: Chance Torres M.D. 12/05/2018 4:57 PM
[2018-12-05] MEDS: ONDANSETRON INJ 2 MG/ML 2 ML VIAL IV PRN (17:13)
[2018-12-05] MEDS ORDERED: BISACODYL 10 MG SUPP PR STA (19:00)
[2018-12-05] MEDS: ENOXAPARIN INJ 40 MG/0.4 ML SYR SQ SCH (21:31)
[2018-12-05] MEDS: CEFEPIME 2,000 MG in SYRINGE 7.5 ML IV SCH (21:31)
[2018-12-05] MEDS: NORTRIPTYLINE HCL 25 MG CAP PO SCH (21:32)
[2018-12-05] MEDS: TRAZODONE HCL 100 MG TAB PO SCH (21:33)
--- NOTE | 2018-12-05 22:15 | Hospitalist Progress Note ---
Date of Service December 05, 2018 Assessment & Plan (1) LLL pneumonia: source for her recurrent fevers/concern for sepsis was uncertain. blood cx's negative. MRCP negative for biliary obstruction. CT abd/pelvis w/o infectious findings. repeated her cxr today because of rales on exam - appears to have developing LLL infiltrate. will Rx for pneumonia - need to cover for gram negatives in light of recent hospital stay. change rocephin to cefepime. consider adding atypical coverage as well but less likely to be an atypical pneumonia. (2) Sepsis: 2nd to developing LLL pneumonia? change rocephin to cefepime. blood cx's from time of admission negative. (3) Confusion: Metabolic encephalopathy 2nd to sepsis/suspected pneumonia. Improved today. Avoid benzos. (4) Gram-negative bacteremia: 2nd to klebsiella during prior hospitalization. repeat cx's during that admission were negative. took course of omnicef post-d/c. the klebsiella septicemia was thought 2nd to port infection and thus port was removed. now with concern for recurrent infection -- cx's this admission negative, but appears to have LLL infiltrate on cxr today. cont to follow blood cx's. (5) Hypothyroidism: Continue home dose of levothyroxine 88 Mcg recent TSH wnl (6) Type II diabetes mellitus: Glycemic control per pharmacy holding oral agents (7) Chronic pain: Continue nortriptyline 100 mg p.o. nightly, oxycodone 5 mg p.o. every 6 as needed, pregabalin 75 mg p.o. 3 times daily, trazodone 100 mg p.o. nightly. cont norco 7.5's q4h prn pain in abdomen likely due to metastatic lesions (8) Hypertension: Continue triamterene hydrochlorothiazide 1 tablet p.o. q. a.m. controlled (9) Cholangiocarcinoma: Patient is followed by Dr. Guy at [facility] in [place]. She is taking Xeloda twice daily in a week on/week of cycle. Her imaging from November 23 showed progressive disease. LFTs are stable with exception for mildly elevated alkaline phosphatase. Care plan d/w Dr Guy extensively by phone today. He will see her after d/c to discuss options for Rx. (10) Infection due to Port-A-Cath: s/p removal during last admission sutures intact will remove sutures tomorrow (confirmed with surgery PA they can be removed by nursing staff and covered w/ steri-strips). (11) DVT prophylaxis: lovenox daily PT/OT evals ongoing hospitalization due to low-grade fever, anorexia and suspected LLL pneumonia Subjective spoke with patient's oncologist, Dr Guy, in [place] this am. he reports she did poorly w/ first-line IV chemo earlier this year. had decent response to Xeloda therapy. he is concerned by the progression of her disease. there are other IV chemo agents available but he is concerned about her ability to tolerate them. he agrees with holding oral chemo in context of infection. pt reports ongoing poor appetite. she is tired. denies new complaints. tele stable overnight. Review of Systems Constitutional: + fever (last pm), + fatigue and + anorexia Respiratory: no cough and no dyspnea Cardiovascular: no chest pain Gastrointestinal: no abdominal pain, no nausea, no vomiting and no diarrhea/loose stools Physical Exam Constitutional: no acute distress ENMT: external ear and nose normal, oropharynx normal Respiratory: no respiratory distress Auscultation: + crackles (modestly worse in bases today); no wheezes Cardiovascular: RRR, no murmur, no edema Heart Sounds: normal S1 and normal S2 Vessels: posterior tibial pulses present and dorsalis pedis pulses present; no JVD Extremities: + edema Gastrointestinal (Abdomen): Inspection/Auscultation: abdomen not distended Percussion/Palpation: abdomen soft; abdomen nontender and no hepatosplenomegaly Psychiatric: Orientation: alert, oriented to person, oriented to place and oriented to time Results & Data Vital Signs (Past 12 Hours) Vital Signs Temp Pulse Pulse Resp BP Pulse Ox 12/05/18 20:49 37.2 C 92 H 19 100/64 93 12/05/18 16:01 36.8 C 94 H 18 125/82 95 12/05/18 16:00 92 H 12/05/18 10:50 36.9 C 77 18 111/71 94 Laboratory Results Laboratory Results - last 24 hr 12/05/18 12/05/18 12/05/18 07:08 07:08 10:10 WBC 11.35 H RBC 3.35 L Hgb 8.8 L Hct 28.9 L MCV 86.3 MCH 26.3 MCHC 30.4 L RDW Std Deviation 57.7 H RDW Coeff of Harish 18.4 H Plt Count 323 MPV 10.0 Immature Gran % (Auto) 0.3 Neut % (Auto) 64.3 Lymph % (Auto) 25.6 [place] % (Auto) 8.4 Eos % (Auto) 1.0 Baso % (Auto) 0.4 Immature Gran # (Auto) 0.03 H Neut # (Auto) 7.32 H Lymph # (Auto) 2.90 [place] # (Auto) 0.95 H Eos # (Auto) 0.11 Baso # (Auto) 0.04 Sodium 138 Potassium 4.0 D Chloride 101 Carbon Dioxide 30 Anion Gap 7.0 BUN 8 Creatinine 0.54 L Est Cr Clr Drug Dosing 113.5 Est GFR ( Amer) 114.8 Est GFR (Non-Af Amer) 99.0 BUN/Creatinine Ratio 15.1 Glucose 111 H Calcium 9.0 Total Bilirubin 0.4 AST 19 ALT 11 L Alkaline Phosphatase 156 H Total Protein 7.6 Albumin 2.1 L Globulin 5.5 H Albumin/Globulin Ratio 0.4 L Influenza Type A (PCR) Neg for Influ A Influenza Type B (PCR) Neg for Influ B PG Care Time/CCT Total # of Minutes Spent Total Time Spent with Patient: Total time spent is greater than 50% in coordination of care (as documented) at patient's floor/unit and/or counseling patient: (1) Chronic pain Chronic pain type: chronic pain syndrome Qualified Code(s): G89.4 - Chronic pain syndrome (2) Type II diabetes mellitus Diabetes mellitus complication status: without complication Diabetes mellitus snf insulin use: without snf use Qualified Code(s): E11.9 - Type 2 diabetes mellitus without complications (3) Hypothyroidism Hypothyroidism type: acquired Qualified Code(s): E03.9 - Hypothyroidism, unspecified (4) Sepsis Sepsis acute organ dysfunction status: without acute organ dysfunction Sepsis type: sepsis due to unspecified organism Qualified Code(s): A41.9 - Sepsis, unspecified organism (5) Infection due to Port-A-Cath Encounter type: sequela Qualified Code(s): T80.219S - Unspecified infection due to central venous catheter, sequela (6) Hypertension Hypertension type: essential hypertension Qualified Code(s): I10 - Essential (primary) hypertension (7) LLL pneumonia Pneumonia type: due to unspecified organism Qualified Code(s): J18.1 - Lobar pneumonia, unspecified organism
[2018-12-06 04:55] LABS: Basophils # (auto) 0.03 K/uL (0-0.2); Basophils % (auto) 0.2 %; Eosinophils # (auto) 0.09 K/uL (0-0.5); Eosinophils % (auto) 0.7 %; Hematocrit (blood only) 29.3 % (37-47); Immature Granulocytes # (auto) 0.04 K/uL (0.00-0.02); Immature Granulocytes % (auto) 0.3 %; Lymphocytes # (auto) 2.92 K/uL (1.2-3.4); Lymphocytes % (auto) 23.4 %; Mean Corpuscular Hgb Conc 30.7 g/dL (32-36); Mean Corpuscular Volume 85.7 fL (80-100); Mean Platelet Volume 9.7 fL (7.4-10.4); Monocytes # (auto) 0.99 K/uL (0.11-0.59); Monocytes % (auto) 7.9 %; Neutrophils # (auto) 8.41 K/uL (1.4-6.5); Neutrophils % (auto) 67.5 %; Platelet Count 293 K/uL (130-400); RDW Coefficient of Variation 18.2 % (11.5-14.5); RDW Standard Deviation 56.8 fL (36.4-46.3); Red Blood Count 3.42 M/uL (4.2-5.4); White Blood Count 12.48 K/uL (4.8-10.8)
[2018-12-06 05:24] LABS: Albumin Level 2.2 gm/dl (3.4-5.0); BUN Creatinine Ratio 12.8 (10-20); Bilirubin,Total 0.4 mg/dl (0.2-1); Calcium 8.8 mg/dl (8.5-10.1); Creatinine Clr Calc Pharmacy 98.7 ml/min; Est GFR (African American) 109.7; Est GFR (Non-African American) 94.6; Potassium 4.1 mmol/L (3.5-5.1)
[2018-12-06 05:27] LABS: Albumin Globulin Ratio 0.4 (0.9-2); Globulin 5.5 gm/dl (2.5-4.0); Total Protein 7.7 gm/dl (6.4-8.2)
[2018-12-06] MEDS: LEVOTHYROXINE SODIUM 88 MCG TABLET PO SCH (06:13)
[2018-12-06] MEDS: PREGABALIN 75 MG CAP PO SCH ×3 (08:40→20:15)
[2018-12-06] MEDS: CHOLECALCIFEROL 1,000 UNITS TAB PO SCH (08:40)
[2018-12-06] MEDS: POLYETHYLENE (MIRALAX) 17 GM PACK PO PRN (08:40)
[2018-12-06] MEDS: ALLOPURINOL 100 MG TAB PO SCH (08:40)
[2018-12-06] MEDS: DOCUSATE SODIUM 100 MG CAP PO SCH ×3 (08:40→20:15)
[2018-12-06] MEDS: POTASSIUM CHLORIDE 20 MEQ TABCR PO SCH ×2 (08:41→20:15)
[2018-12-06] MEDS: PANTOprazole 40 MG TAB PO SCH (08:41)
[2018-12-06] MEDS: MAGNESIUM OXIDE 400 MG TAB PO SCH (08:41)
[2018-12-06] MEDS: TRIAMTERENE/HCTZ 37.5/25MG TAB PO SCH (08:41)
[2018-12-06] MEDS: CEFEPIME 2,000 MG in SYRINGE 7.5 ML IV SCH ×2 (10:19→20:10)
[2018-12-06] MEDS ORDERED: BISACODYL 10 MG SUPP PR STA (17:21)
[2018-12-06] MEDS ORDERED: MAGNESIUM CITRATE 296 ML/BTL PO STA (17:21)
[2018-12-06] MEDS: SODIUM CHLORIDE 0.9% 1000ML 1,000 ML IV SCH (20:09)
[2018-12-06] MEDS: ENOXAPARIN INJ 40 MG/0.4 ML SYR SQ SCH (20:11)
--- NOTE | 2018-12-06 20:14 | Hospitalist Progress Note ---
Date of Service December 06, 2018 Assessment & Plan (1) LLL pneumonia: source for her recurrent fevers/concern for sepsis was uncertain at time of this admission. blood cx's negative x 3 days. MRCP negative for biliary obstruction. CT abd/pelvis w/o infectious findings. repeated her cxr on 12/05 because of rales on exam - appeared to have developing LLL infiltrate. will Rx for pneumonia - need to cover for gram negatives in light of recent hospital stay. changed rocephin to cefepime on 12/05. consider adding atypical coverage as well but less likely to be an atypical pneumonia. (2) Sepsis: suspect 2nd to developing LLL pneumonia. changed rocephin to cefepime 12/05/18 to cover gram negatives. blood cx's from time of admission negative. prior klebsiella septicemia fully resolved. (3) Confusion: Metabolic encephalopathy 2nd to sepsis/suspected pneumonia. Mild, ongoing. cannot rule out toxic effects from narcotics etc (4) Gram-negative bacteremia: 2nd to klebsiella during prior hospitalization. repeat cx's during that admission were negative. took course of omnicef post-d/c. the klebsiella septicemia was thought 2nd to port infection and thus port was removed. now with concern for recurrent infection -- cx's this admission negative however. cont to follow blood cx's. (5) Hypothyroidism: Continue home dose of levothyroxine 88 Mcg recent TSH wnl (6) Type II diabetes mellitus: Glycemic control per pharmacy holding oral agents (7) Chronic pain: Continue pregabalin 75 mg p.o. 3 times daily, trazodone 100 mg p.o. nightly and norco prn stop nortriptyline due to need for antidepressant (and TCAs cause QT issues and constipation) pain in abdomen likely due to metastatic lesions but recheck lipase due to proximity of a metastatic lesion near the pancreas (8) Hypertension: HOLD diuretic due to poor PO intake and low BPs (9) Cholangiocarcinoma: Patient is followed by Dr. Guy at [facility] in [place]. She is taking Xeloda twice daily in a week on/week of cycle. Her imaging from November 23 showed progressive disease. LFTs are stable with exception for mildly elevated alkaline phosphatase. Care plan d/w Dr Guy extensively by phone 12/05. He will see her after d/c to discuss options for Rx. (10) Infection due to Port-A-Cath: s/p removal during last admission sutures intact will remove sutures today and cover w/ steri strips per instructions from gen surg (11) Depression: stop pamelor start lexapro 5mg qam starting in am cont trazodone for sleep consider outpt counseling (12) Constipation: acute/chronic mag citrate x 1 today dulcolax suppos x 1 again if no results then x-ray to r/o ileus needs aggressive bowel regimen in context of narcotic usage for cancer (13) DVT prophylaxis: lovenox daily PT/OT evals ongoing hospitalization due to anorexia and suspected LLL pneumonia check cortisol in am due to suspected adrenal involvement of her cancer and low- normal BPs IV fluids x 2 liters due to dizziness, poor po intake, and low-normal BPs daughter extensively updated by phone 12/06/18 Subjective main complaint is that of constipation and abd pain related to such. she has not had a BM since before the hospitalization. she typically moves her bowels every 3 days - this is chronic for her. she has poor appetite today. has cramps in abdomen. denies dyspnea or significant cough. tele has been normal. asks how long she will remain hospitalized. updated daughter - daughter reports ongoing confusion. she agrees her mom is depressed. Review of Systems Constitutional: + fatigue and + anorexia; no fever and no chills Respiratory: no dyspnea Cardiovascular: no chest pain Gastrointestinal: + abdominal pain, + nausea and + constipation; no vomiting Physical Exam Constitutional: no acute distress ENMT: external ear and nose normal, oropharynx normal Respiratory: no respiratory distress Auscultation: + crackles (both bases - no change (fine, dry)); no wheezes Cardiovascular: RRR, no murmur, no edema Heart Sounds: normal S1 and normal S2 Vessels: posterior tibial pulses present and dorsalis pedis pulses present; no JVD Gastrointestinal (Abdomen): Inspection/Auscultation: abdomen not distended Percussion/Palpation: + abdomen tender (left side of abdomen ) and abdomen soft; no hepatosplenomegaly Skin: sutures clean right upper chest wall Psychiatric: Orientation: alert, oriented to person, oriented to place and oriented to time Affect: + flat affect Results & Data Vital Signs (Past 12 Hours) Vital Signs Temp Pulse Resp BP Pulse Ox 12/06/18 19:37 37.4 C 112 H 18 104/72 95 12/06/18 15:29 37.3 C 94 H 19 99/63 L 94 12/06/18 11:05 36.5 C 100 H 19 109/72 94 Laboratory Results Laboratory Results - last 24 hr 12/06/18 12/06/18 04:45 04:45 WBC 12.48 H RBC 3.42 L Hgb 9.0 L Hct 29.3 L MCV 85.7 MCH 26.3 MCHC 30.7 L RDW Std Deviation 56.8 H RDW Coeff of Harish 18.2 H Plt Count 293 MPV 9.7 Immature Gran % (Auto) 0.3 Neut % (Auto) 67.5 Lymph % (Auto) 23.4 [place] % (Auto) 7.9 Eos % (Auto) 0.7 Baso % (Auto) 0.2 Immature Gran # (Auto) 0.04 H Neut # (Auto) 8.41 H Lymph # (Auto) 2.92 [place] # (Auto) 0.99 H Eos # (Auto) 0.09 Baso # (Auto) 0.03 Sodium 138 Potassium 4.1 Chloride 102 Carbon Dioxide 32 Anion Gap 4.0 BUN 8 Creatinine 0.62 Est Cr Clr Drug Dosing 98.7 Est GFR ( Amer) 109.7 Est GFR (Non-Af Amer) 94.6 BUN/Creatinine Ratio 12.8 Glucose 103 H Calcium 8.8 Total Bilirubin 0.4 AST 18 ALT 13 Alkaline Phosphatase 152 H Total Protein 7.7 Albumin 2.2 L Globulin 5.5 H Albumin/Globulin Ratio 0.4 L PG Care Time/CCT Total # of Minutes Spent Total Time Spent with Patient: Total time spent is greater than 50% in coordination of care (as documented) at patient's floor/unit and/or counseling patient: (1) Chronic pain Chronic pain type: chronic pain syndrome Qualified Code(s): G89.4 - Chronic pain syndrome (2) Type II diabetes mellitus Diabetes mellitus complication status: without complication Diabetes mellitus meterman insulin use: without care home use Qualified Code(s): E11.9 - Type 2 diabetes mellitus without complications (3) Hypothyroidism Hypothyroidism type: acquired Qualified Code(s): E03.9 - Hypothyroidism, unspecified (4) Sepsis Sepsis acute organ dysfunction status: without acute organ dysfunction Sepsis type: sepsis due to unspecified organism Qualified Code(s): A41.9 - Sepsis, unspecified organism (5) Infection due to Port-A-Cath Encounter type: sequela Qualified Code(s): T80.219S - Unspecified infection due to central venous catheter, sequela (6) LLL pneumonia Pneumonia type: due to unspecified organism Qualified Code(s): J18.1 - Lobar pneumonia, unspecified organism (7) Hypertension Hypertension type: essential hypertension Qualified Code(s): I10 - Essential (primary) hypertension (8) Depression Depression Type: other depression Qualified Code(s): F32.89 - Other specified depressive episodes (9) Constipation Constipation type: slow transit constipation Qualified Code(s): K59.01 - Slow transit constipation
[2018-12-06] MEDS: TRAZODONE HCL 100 MG TAB PO SCH (20:15)
[2018-12-06] MEDS: NORTRIPTYLINE HCL 25 MG CAP PO SCH (20:16)
[2018-12-07] MEDS: SODIUM CHLORIDE 0.9% 1000ML 1,000 ML IV SCH (06:10)
[2018-12-07] MEDS: LEVOTHYROXINE SODIUM 88 MCG TABLET PO SCH (06:10)
[2018-12-07 07:37] LABS: Basophils # (auto) 0.04 K/uL (0-0.2); Basophils % (auto) 0.3 %; Eosinophils # (auto) 0.11 K/uL (0-0.5); Eosinophils % (auto) 0.9 %; Hematocrit (blood only) 29.1 % (37-47); Immature Granulocytes # (auto) 0.03 K/uL (0.00-0.02); Immature Granulocytes % (auto) 0.3 %; Lymphocytes # (auto) 2.39 K/uL (1.2-3.4); Lymphocytes % (auto) 20.3 %; Mean Corpuscular Hgb Conc 30.9 g/dL (32-36); Mean Corpuscular Volume 85.6 fL (80-100); Mean Platelet Volume 10.2 fL (7.4-10.4); Monocytes # (auto) 1.15 K/uL (0.11-0.59); Monocytes % (auto) 9.8 %; Neutrophils # (auto) 8.04 K/uL (1.4-6.5); Neutrophils % (auto) 68.4 %; Platelet Count 312 K/uL (130-400); RDW Coefficient of Variation 18.3 % (11.5-14.5); RDW Standard Deviation 58.3 fL (36.4-46.3); White Blood Count 11.76 K/uL (4.8-10.8)
[2018-12-07] MEDS: DOCUSATE SODIUM 100 MG CAP PO SCH ×3 (08:11→20:35)
[2018-12-07] MEDS: PANTOprazole 40 MG TAB PO SCH (08:11)
[2018-12-07] MEDS: POLYETHYLENE (MIRALAX) 17 GM PACK PO PRN (08:11)
[2018-12-07] MEDS: PREGABALIN 75 MG CAP PO SCH ×3 (08:11→20:35)
[2018-12-07] MEDS: ESCITALOPRAM OXALATE 10 MG TAB PO SCH (08:11)
[2018-12-07] MEDS: CHOLECALCIFEROL 1,000 UNITS TAB PO SCH (08:12)
[2018-12-07] MEDS: POTASSIUM CHLORIDE 20 MEQ TABCR PO SCH (08:12)
[2018-12-07] MEDS: ALLOPURINOL 100 MG TAB PO SCH (08:13)
[2018-12-07] MEDS: MAGNESIUM OXIDE 400 MG TAB PO SCH (08:13)
[2018-12-07] MEDS: CEFEPIME 2,000 MG in SYRINGE 7.5 ML IV SCH ×2 (08:21→21:19)
[2018-12-07] MEDS: SENNA 8.6 MG TAB PO SCH (17:46)
[2018-12-07] MEDS: ENOXAPARIN INJ 40 MG/0.4 ML SYR SQ SCH (19:29)
[2018-12-07] MEDS: TRAZODONE HCL 100 MG TAB PO SCH (20:35)
--- NOTE | 2018-12-07 21:12 | Hospitalist Progress Note ---
Date of Service December 07, 2018 Assessment & Plan (1) LLL pneumonia: suspected. stable, improving. cxr on 12/05/18 with LLL infiltrate. need to cover for gram negatives in light of recent hospital stay and immunocompromised status. MRSA swab neg; defer on coverage for such. changed rocephin to cefepime on 12/05/18. consider adding atypical coverage as well but less likely to be an atypical pneumonia. (2) Sepsis: suspect 2nd to LLL pneumonia. changed rocephin to cefepime 12/05/18 to cover gram negatives. blood cx's from time of this admission negative. prior klebsiella septicemia fully resolved. (3) Confusion: Metabolic encephalopathy 2nd to sepsis/suspected pneumonia. Improved today. cannot rule out toxic effects from narcotics etc but again the confusion is improved. (4) Gram-negative bacteremia: 2nd to klebsiella during prior hospitalization. repeat cx's during that admission were negative. took course of omnicef post-d/c. the klebsiella septicemia was thought 2nd to port infection and thus port was removed. now with concern for recurrent infection (probably LLL pneumonia) -- cx's this admission negative. (5) Hypothyroidism: Continue home dose of levothyroxine 88 Mcg recent TSH wnl (6) Type II diabetes mellitus: Glycemic control per pharmacy holding oral agents control satisfactory (7) Chronic pain: Continue pregabalin 75 mg p.o. 3 times daily, trazodone 100 mg p.o. night ly and norco prn stopped nortriptyline due to need for antidepressant (and TCAs cause QT issues and constipation) pain in abdomen likely due to metastatic lesions lipase today wnl (8) Hypertension: HOLD diuretic due to poor PO intake and low BPs (9) Cholangiocarcinoma: Patient is followed by Dr. Guy at [facility] in [place]. She is taking Xeloda twice daily in a week on/week of cycle. Her imaging from November 23 showed progressive disease. LFTs are stable with exception for mildly elevated alkaline phosphatase. Care plan d/w Dr Guy extensively by phone 12/05. He will see her after d/c to discuss options for Rx. (10) Infection due to Port-A-Cath: s/p removal during last admission sutures removed 12/06/18 (11) Depression: stopped pamelor started lexapro 5mg qam 12/07/18 cont trazodone for sleep consider outpt counseling (12) Constipation: acute/chronic acutely resolved now needs good bowel regimen in light of chronic, slow-transit constipation and current use of narcotics (13) DVT prophylaxis: lovenox daily PT/OT evals appreciated; cleared for home walking well (nearly 200 feet) without issue daughter extensively updated by phone 12/06/18 sisters updated at bedside today d/c tele move to med/surg another 1-2 days of cefepime then d/c home Subjective patient feels much better today. had several BMs finally after suffering from severe constipation in the last week. had large BM this am per staff. abd discomfort better following the BMs. appetite improved today. no fevers/chills. 2 sisters at bedside - they agree she is better today. denies new complaints. tele stable overnight. Review of Systems Constitutional: no fever and no chills Respiratory: no cough and no dyspnea Cardiovascular: no chest pain Gastrointestinal: no abdominal pain, no nausea and no vomiting Physical Exam Constitutional: + frail appearing (but overall looks better today); no acute distress ENMT: external ear and nose normal, oropharynx normal Respiratory: no respiratory distress Auscultation: + crackles (both bases - no change (fine, dry)); no wheezes Cardiovascular: RRR, no murmur, no edema Heart Sounds: normal S1 and normal S2 Vessels: posterior tibial pulses present and dorsalis pedis pulses present; no JVD Extremities: no edema Gastrointestinal (Abdomen): normal bowel sounds, soft, nontender, no hepatosplenomegaly Inspection/Auscultation: abdomen not distended Psychiatric: Orientation: alert, oriented to person, oriented to place and oriented to time Results & Data Vital Signs (Past 12 Hours) Vital Signs Temp Pulse Resp BP BP Pulse Ox 12/07/18 20:01 37.5 C 91 H 19 121/74 96 12/07/18 15:51 36.3 C L 105 H 18 145/82 H 92 12/07/18 13:00 36.9 C 103 H 18 120/74 97 Laboratory Results Laboratory Results - last 24 hr 12/07/18 12/07/18 12/07/18 07:10 07:10 07:10 WBC 11.76 H RBC 3.40 L Hgb 9.0 L Hct 29.1 L MCV 85.6 MCH 26.5 MCHC 30.9 L RDW Std Deviation 58.3 H RDW Coeff of Harish 18.3 H Plt Count 312 MPV 10.2 Immature Gran % (Auto) 0.3 Neut % (Auto) 68.4 Lymph % (Auto) 20.3 [place] % (Auto) 9.8 Eos % (Auto) 0.9 Baso % (Auto) 0.3 Immature Gran # (Auto) 0.03 H Neut # (Auto) 8.04 H Lymph # (Auto) 2.39 [place] # (Auto) 1.15 H Eos # (Auto) 0.11 Baso # (Auto) 0.04 Lipase 70 L Cortisol AM Sample 20.28 Diagnostic Findings blood cx's negative to date PG Care Time/CCT Total # of Minutes Spent Total Time Spent with Patient: Total time spent is greater than 50% in coordination of care (as documented) at patient's floor/unit and/or counseling patient: (1) Chronic pain Chronic pain type: chronic pain syndrome Qualified Code(s): G89.4 - Chronic pain syndrome (2) Type II diabetes mellitus Diabetes mellitus complication status: without complication Diabetes mellitus chcf insulin use: without chcf use Qualified Code(s): E11.9 - Type 2 diabetes mellitus without complications (3) Depression Depression Type: other depression Qualified Code(s): F32.89 - Other specified depressive episodes (4) Hypothyroidism Hypothyroidism type: acquired Qualified Code(s): E03.9 - Hypothyroidism, unspecified (5) Sepsis Sepsis acute organ dysfunction status: without acute organ dysfunction Sepsis type: sepsis due to unspecified organism Qualified Code(s): A41.9 - Sepsis, unspecified organism (6) Infection due to Port-A-Cath Encounter type: sequela Qualified Code(s): T80.219S - Unspecified infection due to central venous catheter, sequela (7) LLL pneumonia Pneumonia type: due to unspecified organism Qualified Code(s): J18.1 - Lobar pneumonia, unspecified organism (8) Hypertension Hypertension type: essential hypertension Qualified Code(s): I10 - Essential (primary) hypertension (9) Constipation Constipation type: slow transit constipation Qualified Code(s): K59.01 - Slow transit constipation
[2018-12-08] MEDS: LEVOTHYROXINE SODIUM 88 MCG TABLET PO SCH (05:59)
[2018-12-08 06:49] LABS: Basophils # (auto) 0.06 K/uL (0-0.2); Basophils % (auto) 0.4 %; Eosinophils % (auto) 0.7 %; Hematocrit (blood only) 29.3 % (37-47); Immature Granulocytes # (auto) 0.07 K/uL (0.00-0.02); Immature Granulocytes % (auto) 0.5 %; Lymphocytes # (auto) 2.23 K/uL (1.2-3.4); Mean Corpuscular Hgb Conc 30.7 g/dL (32-36); Mean Corpuscular Volume 85.4 fL (80-100); Mean Platelet Volume 10.2 fL (7.4-10.4); Monocytes # (auto) 1.26 K/uL (0.11-0.59); Neutrophils # (auto) 10.22 K/uL (1.4-6.5); Neutrophils % (auto) 73.4 %; Platelet Count 340 K/uL (130-400); RDW Standard Deviation 56.7 fL (36.4-46.3); Red Blood Count 3.43 M/uL (4.2-5.4); White Blood Count 13.94 K/uL (4.8-10.8)
[2018-12-08 07:19] LABS: BUN Creatinine Ratio 14.4 (10-20); Calcium 8.9 mg/dl (8.5-10.1); Creatinine Clr Calc Pharmacy 133.4 ml/min; Est GFR (Non-African American) 104.4
[2018-12-08] MEDS: HYDROCODONE/ACETAMINOPHEN 7.5/325MG TAB PO PRN (08:37)
[2018-12-08] MEDS: CEFEPIME 2,000 MG in SYRINGE 7.5 ML IV SCH ×2 (08:38→20:54)
[2018-12-08] MEDS: ONDANSETRON INJ 2 MG/ML 2 ML VIAL IV PRN ×2 (08:38→17:05)
[2018-12-08] MEDS: MAGNESIUM OXIDE 400 MG TAB PO SCH (08:38)
[2018-12-08] MEDS: DOCUSATE SODIUM 100 MG CAP PO SCH ×3 (08:39→20:49)
[2018-12-08] MEDS: CHOLECALCIFEROL 1,000 UNITS TAB PO SCH (08:39)
[2018-12-08] MEDS: ALLOPURINOL 100 MG TAB PO SCH (08:39)
[2018-12-08] MEDS: ESCITALOPRAM OXALATE 10 MG TAB PO SCH (08:40)
[2018-12-08] MEDS: PANTOprazole 40 MG TAB PO SCH (08:40)
[2018-12-08] MEDS: SENNA 8.6 MG TAB PO SCH (08:41)
[2018-12-08] MEDS: PREGABALIN 75 MG CAP PO SCH ×3 (08:45→20:49)
--- NOTE | 2018-12-08 11:08 | XRay Report ---
XR chest 2V routine CLINICAL HISTORY: Left lower lobe pneumonia COMPARISON STUDY: 12/05/2018 FINDINGS: The cardiac and mediastinal contours remain stable. Left hemidiaphragm is somewhat obscured .[While this may be related to technical factors, a minimal left basilar airspace opacity cannot be e xcluded. The right lung is clear. No definite pleural effusions are visualized IMPRESSION: 1. Ill-definition of the left hemidiaphragm. This raises the possibility of a minimal left basilar ai rspace opacity Electronically signed by: Adi Haro M.D. 12/08/2018 11:06 AM
--- NOTE | 2018-12-08 20:46 | Hospitalist Progress Note ---
Date of Service December 08, 2018 Assessment & Plan (1) LLL pneumonia: suspected. stable, improving. cxr on 12/05/18 with LLL infiltrate. cxr today with minimal LLL infiltrate. no complicating effusion. need to cover for gram negatives in light of recent hospital stay and immunocompromised status. MRSA swab neg; defer on coverage for such. changed rocephin to cefepime on 12/05/18. thus, today is day #4 of cefepime. check EKG in am; if QTc is acceptable d/c cefepime and discharge home on several more days of levaquin. (2) Sepsis: suspect 2nd to LLL pneumonia. changed rocephin to cefepime 12/05/18 to cover gram negatives. blood cx's from time of this admission negative. prior klebsiella septicemia fully resolved. (3) Confusion: Metabolic encephalopathy 2nd to sepsis/suspected pneumonia. Fully resolved. cannot rule out toxic effects from narcotics etc but again the confusion is resolved. (4) Gram-negative bacteremia: 2nd to klebsiella during prior hospitalization. repeat cx's during that admission were negative. took course of omnicef post-d/c. the klebsiella septicemia was thought 2nd to port infection and thus port was removed. blood cultures this admission negative. (5) Hypothyroidism: Continue levothyroxine 88 Mcg daily. recent TSH wnl. (6) Type II diabetes mellitus: Glycemic control per pharmacy control satisfactory resume oral agents at d/c (7) Chronic pain: Continue pregabalin 75 mg p.o. 3 times daily, trazodone 100 mg p.o. nightly and norco prn stopped nortriptyline due to need for antidepressant (and TCAs cause QT issues and constipation) pain in abdomen likely due to metastatic lesions which are extensive on CT lipase wnl (8) Hypertension: STOPPED diuretic due to poor PO intake and low BPs despite being off BP meds her BPs are normal (systolics 110-120 range) (9) Cholangiocarcinoma: Stage 4. Progressive despite Rx with several different chemo agents/regimens. Patient is followed by Dr. Guy at [facility] in [place]. She is taking Xeloda twice daily in a week on/week of cycle. Her imaging from November 23 showed progressive disease. LFTs are stable with exception for mildly elevated alkaline phosphatase. Care plan d/w Dr Guy extensively by phone 9/10. He will see her after d/c to discuss options for Rx. f/u appt scheduled for 12/12/18 in [place]/ Dr Guy. (10) Infection due to Port-A-Cath: s/p removal during last admission sutures removed 12/06/18 (11) Depression: stopped pamelor started lexapro 5mg qam 12/07/18 cont trazodone for sleep consider outpt counseling (12) Constipation: acute/chronic acutely resolved now needs good bowel regimen in light of chronic, slow-transit constipation and current use of narcotics recommend senna with miralax every day (13) DVT prophylaxis: lovenox daily PT/OT evals appreciated; cleared for home walking well (nearly 200 feet) without issue daughter extensively updated by phone 12/06/18 and at bedside 12/08/18 hopefully d/c home tomorrow Subjective patient overall feeling well today moved bowels again still with abdominal pain - left upper quadrant/flank/posterior left back - suffered such in middle of night last night leading to poor sleep daughter at bedside - confirms mother's mental status is at baseline no worsening of chronic neuropathy symptoms despite discontinuation of nortriptyline no new complaints Review of Systems Constitutional: no fever, no chills and no anorexia (ate decently today) Respiratory: no cough and no dyspnea Cardiovascular: no chest pain Gastrointestinal: as per Subjective / HPI and + abdominal pain; no nausea, no vomiting, no constipation and no diarrhea/loose stools Physical Exam Constitutional: no acute distress and no altered mental status best she has looked all week ENMT: external ear and nose normal, oropharynx normal Respiratory: no respiratory distress Auscultation: + crackles (both bases - no change (fine, dry)); no wheezes Cardiovascular: RRR, no murmur, no edema Heart Sounds: normal S1 and normal S2 Vessels: posterior tibial pulses present and dorsalis pedis pulses present; no JVD Extremities: no edema Gastrointestinal (Abdomen): Inspection/Auscultation: abdomen not distended Percussion/Palpation: + abdomen tender (left side of abdomen ) and abdomen soft; no hepatosplenomegaly Psychiatric: Orientation: alert, oriented to person, oriented to place and oriented to time Affect: euthymic affect (affect more full today) Results & Data Vital Signs (Past 12 Hours) Vital Signs Temp Pulse Resp BP BP Pulse Ox 12/08/18 20:02 37.1 C 99 H 18 123/80 91 12/08/18 15:51 36.6 C 93 H 18 115/76 96 Laboratory Results Laboratory Results - last 24 hr 12/08/18 12/08/18 12/08/18 06:34 06:34 06:34 WBC 13.94 H RBC 3.43 L Hgb 9.0 L Hct 29.3 L MCV 85.4 MCH 26.2 MCHC 30.7 L RDW Std Deviation 56.7 H RDW Coeff of Harish 18.0 H Plt Count 340 MPV 10.2 Immature Gran % (Auto) 0.5 Neut % (Auto) 73.4 Lymph % (Auto) 16.0 [place] % (Auto) 9.0 Eos % (Auto) 0.7 Baso % (Auto) 0.4 Immature Gran # (Auto) 0.07 H Neut # (Auto) 10.22 H Lymph # (Auto) 2.23 [place] # (Auto) 1.26 H Eos # (Auto) 0.10 Baso # (Auto) 0.06 Sodium 137 Potassium 4.0 Chloride 104 Carbon Dioxide 29 Anion Gap 4.0 BUN 7 Creatinine 0.46 L Est Cr Clr Drug Dosing 133.4 Est GFR ( Amer) 121.0 Est GFR (Non-Af Amer) 104.4 BUN/Creatinine Ratio 14.4 Glucose 128 H Calcium 8.9 Vitamin B12 481 PG Care Time/CCT Total # of Minutes Spent Total Time Spent with Patient: Total time spent is greater than 50% in coordination of care (as documented) at patient's floor/unit and/or counseling patient: (1) Chronic pain Chronic pain type: chronic pain syndrome Qualified Code(s): G89.4 - Chronic pain syndrome (2) Type II diabetes mellitus Diabetes mellitus complication status: without complication Diabetes mellitus alf insulin use: without alf use Qualified Code(s): E11.9 - Type 2 diabetes mellitus without complications (3) Depression Depression Type: other depression Qualified Code(s): F32.89 - Other specified depressive episodes (4) Hypothyroidism Hypothyroidism type: acquired Qualified Code(s): E03.9 - Hypothyroidism, unspecified (5) Sepsis Sepsis acute organ dysfunction status: without acute organ dysfunction Sepsis type: sepsis due to unspecified organism Qualified Code(s): A41.9 - Sepsis, unspecified organism (6) Infection due to Port-A-Cath Encounter type: sequela Qualified Code(s): T80.219S - Unspecified infection due to central venous catheter, sequela (7) LLL pneumonia Pneumonia type: due to unspecified organism Qualified Code(s): J18.1 - Lobar pneumonia, unspecified organism (8) Hypertension Hypertension type: essential hypertension Qualified Code(s): I10 - Essential (primary) hypertension (9) Constipation Constipation type: slow transit constipation Qualified Code(s): K59.01 - Slow transit constipation
[2018-12-08] MEDS: TRAZODONE HCL 100 MG TAB PO SCH (20:49)
[2018-12-08] MEDS: ENOXAPARIN INJ 40 MG/0.4 ML SYR SQ SCH (20:50)
[2018-12-08] MEDS ORDERED: HYDROCODONE/ACETAMINOPHEN 7.5/325MG TAB PO SCH (22:00)
[2018-12-09] MEDS: LEVOTHYROXINE SODIUM 88 MCG TABLET PO SCH (06:06)
[2018-12-09] MEDS: CEFEPIME 2,000 MG in SYRINGE 7.5 ML IV SCH (07:46)
[2018-12-09] MEDS: CHOLECALCIFEROL 1,000 UNITS TAB PO SCH (07:47)
[2018-12-09] MEDS: PREGABALIN 75 MG CAP PO SCH ×2 (07:47→13:40)
[2018-12-09] MEDS: PANTOprazole 40 MG TAB PO SCH (07:47)
[2018-12-09] MEDS: ALLOPURINOL 100 MG TAB PO SCH (07:47)
[2018-12-09] MEDS: MAGNESIUM OXIDE 400 MG TAB PO SCH (07:48)
[2018-12-09] MEDS: SENNA 8.6 MG TAB PO SCH (07:48)
[2018-12-09] MEDS: ESCITALOPRAM OXALATE 10 MG TAB PO SCH (07:48)
[2018-12-09] MEDS: DOCUSATE SODIUM 100 MG CAP PO SCH ×2 (07:52→13:42)
[2018-12-09] MEDS: HYDROCODONE/ACETAMINOPHEN 7.5/325MG TAB PO PRN ×2 (07:52→13:44)
[2018-12-09] MEDS ORDERED: levoFLOXacin 750 MG TAB PO ONE (11:45)
--- NOTE | 2018-12-11 16:08 | Discharge Summary ---
Date of Service date of admission - 12/03/2018 date of discharge - 12/09/2018 Admission HPI Per Admitting Provider Patient is a 63 year old female with past medical history of cholangiocarcinoma, hypertension, hyperlipidemia, GERD, gout, hypothyroidism, type 2 diabetes mellitus, who presents to the emergency room with a complaint of confusion noted by her daughter.Patient had undergone 3 rounds of IV chemotherapy under the direction of an oncologist at [facility] Dr. Chance Guy, and she supposed to have followed up with Dr Guy on December 05. In the meantime patient was admitted at [facility] for severe sepsis and borderline septic shock on November 23, 2018. Blood cultures ultimately were positive for Klebsiella. The source of infection was suspected to be from her indwelling port and the port was removed. Port culture, however, was negative. After receiving 4+ days of IV antibiotics she was discharged home on cefdinir 300 BID for 12 days. Today patient came in complaining of similar symptoms. She denies nausea vomiting chest pain shortness of breath abdominal pain frequency urgency hemoptysis hematemesis dysuria and pyuria. Labs are reviewed: White blood cell 13.35 which is increased in comparison to November 26 when her white blood cell count was 8.91. Patient also has neutrophilia with left shift 9.77. Hemoglobin 9.6, hematocrit 30.9, platelet count of 303, PT 13.2, INR 1.3. Sodium 134, potassium 3.4 chloride 95 anion gap 11 BUN 9 creatinine 0.67 GFR 92 lactate 2.2 glucose 189 magnesium 1.9 bilirubin 0.4 AST 20, ALT 13 alkaline phosphatase 163 ammonia 19 troponin 0 0.015, albumin 2.[address] head shows no hemorrhage or mass affect and no evidence of acute territorial ischemia by CT criteria. Chest x-ray show cardiomegaly and emphysema with no acute cardiopulmonary abnormality. A right-sided central venous infusion port has been removed from previous. Low lung volumes. Principal Diagnosis sepsis - likely due to suspected LLL pneumonia Discharge Exam Constitutional no acute distress and no altered mental status ENMI external ear and nose normal, oropharynx normal Respiratory no respiratory distress Auscultation: + crackles (both bases - no change (fine, dry)); no wheezes Cardiovascular RRR, no murmur, no edema Heart Sounds: normal S1 and normal S2 Vessels: posterior tibial pulses present and dorsalis pedis pulses present; no JVD Extremities: no edema Gastrointestinal (Abdomen) Inspection/Auscultation: abdomen not distended Percussion/Palpation: + abdomen tender (left side of abdomen ) and abdomen soft; no hepatosplenomegaly Skin right upper chest - former port site - clean, healed, no drainage; sutures have been removed. Psychiatric Orientation: alert, oriented to person, oriented to place and oriented to time Affect: euthymic affect (affect more full today) Discharge Data Allergies Allergy/AdvReac Type Severity Reaction Status Date / Time metoclopramide Allergy Intermediate FACIAL AND Verified 12/03/18 12:40 FEET SWELLING, BONE PAIN silicone Allergy Intermediate SKIN MIRANDA Verified 12/03/18 12:40 celecoxib Allergy Mild RASH Verified 12/03/18 12:40 valsartan Allergy Unknown Verified 12/03/18 12:40 atorvastatin AdvReac Intermediate headaches Verified 12/03/18 12:40 Consultations [facility] gastroenterology PT, OT Procedures Performed Removal of sutures from prior port extraction site (right upper chest) Ordered Studies 1. CT abd/pelvis: FINDINGS: Lung bases: The heart is normal in size and without pericardial effusion. The coronary arteries are densely calcified. Emphysematous change is seen at the lung bases. There is no airspace consolidation or pleural effusion. Dependent atelectasis is noted. A 4 mm pulmonary nodule at the right lung base on image #30 is unchanged. There is a tiny hiatal hernia. Liver: The contrast-enhanced liver is normal in size. The liver is heterogeneous in attenuation and there is nodularity of the surface contour. There is no intrahepatic biliary ductal dilatation. The hepatic veins and portal veins are patent. Again seen are changes of multifocal hepatic metastatic disease. There are approximately 10 lesions identified. The largest is present in the hepatic dome and measures over 3 cm. These are not appreciably changed from 11/23/2018. Gallbladder: Surgically absent noting clips in the gallbladder fossa. Spleen: Normal in size and attenuation. Pancreas: A large retroperitoneal metastasis involves the body of the pancreas. The pancreatic duct is normal in caliber. Adrenal glands: The right adrenal gland is normal in appearance. The left adrenal gland is involved by a large retroperitoneal metastasis. Kidneys: The contrast enhanced kidneys demonstrate mild cortical atrophy and are without hydronephrosis. The kidneys enhance symmetrically. Abdominal vasculature: The abdominal aorta is normal in course and caliber noting advanced atherosclerotic calcification. Bowel: There is mild colonic diverticulosis without CT evidence of acute diverticulitis. No bowel obstruction is seen. The appendix is well-visualized and normal. Peritoneum: There is no intraperitoneal free air or abdominal ascites. Foci of induration/fluid within the ventral abdominal wall are likely related to subcutaneous injections. There are least 2 tiny peritoneal implants. These are subcentimeter in size and seen in the right upper quadrant on image #178 and in the ventral omentum on image #198. Lymphadenopathy: A large retroperitoneal metastasis on image #154 is unchanged. This measures approximately 7 x 5 cm and involves the body of the pancreas and the left adrenal gland. Additional smaller pathologically enlarged epicardial lymph nodes are identified (images #191, #213, and #243). A portacaval node on image #163 measures 3.7 x 1.4 cm. Pelvic viscera: The bladder is distended and grossly unremarkable. Uterus is surgically absent. No adnexal lesion is seen. Skeletal structures: The skeletal structures are osteopenic. Mild lumbosacral spondylosis is observed. Post laminectomy changes noted at L5. No lytic or blastic lesions are seen. IMPRESSION: 1. There are no acute infectious or inflammatory findings in the abdomen or pelvis and there has been no significant change from 11/23/2018. 2. Multifocal metastatic disease is unchanged from previous. 3. There is multifocal hepatic metastatic disease. 4. There is a large left retroperitoneal metastatic implant which involves the left adrenal gland and the pancreas. Additional pathologically enlarged upper abdominal and retroperitoneal nodes are identified. 5. There are tiny peritoneal implants. 6. Emphysema. 2. CT head - negative for acute process; no metastatic lesions seen. 3. MRCP - IMPRESSION: 1. No intrahepatic or extrahepatic biliary ductal dilatation. Postsurgical changes of cholecystectomy. 2. Allowing for noncontrast technique, no gross evidence to suggest a diagnosis of cholangitis, which does not exclude the diagnosis. 3. Multifocal hepatic metastatic disease. 4. Retroperitoneal masses along the dorsal pancreas and left adrenal gland, possible conglomerate lymphadenopathy or implants. Hospital Course (1) LLL pneumonia: When the patient was admitted the exact cause for her fever, altered mental status, etc was uncertain. Extensive work-up -- cxr, CT abd/pelvis, MRCP, u/a, etc -- did not show an obvious source. Blood cultures were negative during this stay. The patient had a repeat cxr on 12/05/18 which finally demonstrated a LLL infiltrate. At that point her antibiotics were broadened to cover for the possibility of a nosocomial/gram negative pneumonia. Within 48 hours her fevers were fully resolved and she was starting to feel better. She never had an O2 requirement. Repeat cxr prior to discharge did not demonstrate any complicating pleural effusion or pulmonary edema. She received approximately 4-5 days of IV cefepime and will transition to 3 days of oral high-dose levaquin at discharge. EKG on am of discharge showed a QTc of about 460ms and thus it was felt that levaquin was an acceptable treatment option for her (the patient had had prolonged QTc on past admission). (2) Sepsis: [place] to be 2nd to LLL pneumonia. Initially received IV rocephin which was then changed to cefepime on 12/05/18 to cover gram negatives. She improved clinically with the above. Blood cx's from time of this admission were negative. Thus her prior klebsiella septicemia from the past hospitalization was fully resolved. She will complete 3 more days of high-dose levaquin at home. (3) Confusion: Metabolic encephalopathy 2nd to sepsis/suspected pneumonia. Fully resolved prior to discharge. I cannot rule out toxic effects from narcotics which were being used for abdominal pain (pain attributed to large metastatic cancer lesions as seen on CT). (4) Gram-negative bacteremia: 2nd to klebsiella during prior hospitalization. At time of discharge from the prior hospital stay she was given a course of omnicef. The klebsiella septicemia was thought 2nd to port infection and thus the port was removed. Blood cultures this admission remained negative. (5) Hypothyroidism: Continue levothyroxine 88 Mcg daily. 12/03/18 - TSH wnl. (6) Type II diabetes mellitus: control was satisfactory the entire stay. She will resume oral agents at d/c. (7) Chronic pain: She will continue pregabalin 75 mg p.o. 3 times daily, trazodone 100 mg p.o. nightly and norco prn. We did stop her nortriptyline due to need for antidepressant (and it may have been contributing to her prior QTc prolongation and constipation). Pain in abdomen likely due to metastatic lesions which are extensive on CT abd/pelvis. Lipase was normal, u/a was negative, and there was no infectious source in the abdomen on CT or MRCP. Cholangitis was NOT suspected by the [facility] GI team. With the exception of mildly elevated alk phos level her LFTs were otherwise normal. (8) Hypertension: STOPPED diuretic due to poor PO intake and low BPs seen during the stay. Despite being off her BP meds (HCTZ) her BPs remained normal (systolics 110-120 range). Cortisol level was checked and found to be normal while hospitalized. (9) Cholangiocarcinoma: Stage 4. Progressive despite treatment with several different chemo agents/regimens. Patient is followed by Dr. Guy at [facility] in [place]. She was recently taking Xeloda twice daily in a week on/week of cycle up until her recent bacteremia/septicemia admission. Her imaging from November 23 as well as December 03 showed progressive disease. LFTs were stable with exception of only mildly elevated alkaline phosphatase. Care plan was d/w Dr Guy extensively by phone on 12/05/18. He will see her on 12/12/18 in [place] to discuss remaining treatment options for the cholangiocarcinoma. The patient and family were counseled on the CT findings showing progressive cancer. (10) Infection due to Port-A-Cath: SUSPECTED - s/p port removal during last admission sutures removed this admission on 12/06/18 operative site is fully healed (11) Depression: stopped nortriptyline. started lexapro 5mg qam 12/07/18. cont trazodone for sleep. consider outpatient counseling. (12) Constipation: At baseline has chronic, slow-transit constipation. With current use of narcotics she has had worsening symptoms. Recommended senna with miralax every day for bowel maintenance. Total Time Total Time Spent Total Time Spent (In Minutes): 45 Total Time Includes: Examination of the Patient, Discharge Planning and Medication Reconciliation Discharge Plan Discharge Items Patient Disposition: Home - Self-Care Reason For Visit: fever, concern for recurrent infection Discharge Diagnosis: 1. suspected left sided pneumonia - improved. 2. blood stream infection ruled out. 3. no evidence of infection of the bile ducts based on MRI testing. Goals: 1. determine cause of fever. 2. treat any abdominal pain. 3. obtain more information about the status of the cancer. Activity: As commented below Activity Comment: take it easy for the next 2-3 days then gradually increase activities Bathing: No limitations Non-emergency contact: Primary Care Provider and Oncologist Call non-emergency contact if: you have any medication questions, your symptoms worsen, your pain is not controlled, your pain is worsening and you have a fever Follow-up/Referrals: Dr. Chance Guy [Other] - 12/12/18 11:30 am (Please, follow up with Dr. Chance Guy on TuesdayDecember 12 at 11:30 am. *If you need to change this appointment, call his office at [phone].) Tawanda Ruvalcaba MD [Primary Care Provider] - 12/19/18 2:30 pm (Please, follow up with Dr. Ruvalcaba on TuesdayDecember 19 at 2:30 pm *If you need to change this appointment, call the office at [phone].) Diet: Regular Addtl Attending Provider Instructions: Ms Booth, You presented with fever and concern for infection. Your blood cultures were negative (no bloodstream infection). The prior infection from the last hospitalization was completely resolved. Your urine was not infected. The bile ducts appeared to be free of infection. Chest x-rays ultimately showed a small amount of pneumonia at the bottom of the left lung. You improved slowly with IV antibiotics. Recommendations - 1. levaquin (levofloxacin) antibiotic for 3 more days; start this tomorrow. 2. for depression - * STOP the nortriptyline * START lexapro (escitalopram) 5mg daily, first dose tomorrow 3. for pain - * hydrocodone-acetaminophen 1 tablet every 6 hours as needed for pain 4. for constipation - * senna (senakot) 2 tablets daily - purchase [id number] * miralax powder once daily - purchase [id number] 5. please STOP your blood pressure water pill 6. take [id number] probiotics for 1 week then stop; these may help prevent diarrhea from your antibiotics 7. HOLD your xeloda cancer chemotherapy until you see Dr Guy. follow-up -- see separate section be sure to bring the CD with the CAT scans to your appointment with Dr Guy return to any hospital if -- * you have worsening shortness of breath * you have chest pains * you have worsening abdominal pain that is not being relieved with your pain killer * you have fevers over 100.5 degrees * any other concerns Pending Studies at Discharge: No Stand-Alone Forms: My [facility] Medications and DC Order Prescriptions: New polyethylene glycol 3350 [Miralax] 17 gram Powder In Packet 17 g PO DAILY Qty: 30 RF: 0 hydrocodone-acetaminophen [Maxwell] 7.5-325 mg Tablet 1 tab PO Q6H PRN (Reason: pain) Qty: 30 RF: 0 escitalopram oxalate 10 mg Tablet 5 mg PO QAM Qty: 30 RF: 2 sennosides [Senokot] 8.6 mg Tablet 17.2 mg PO QAM Qty: 30 RF: 0 levofloxacin [Levaquin] 750 mg tablet 750 mg PO DAILY 3 Days Qty: 3 RF: 0 Continued docusate sodium 100 mg capsule 100 mg PO TID RF: 0 glimepiride 1 mg tablet 1 mg PO QAM Qty: 30 RF: 0 cholecalciferol (vitamin D3) 1,000 unit capsule 2,000 units PO QAM RF: 0 cinnamon bark [Cinnamon] 500 mg Capsule 1,000 mg PO DAILY RF: 0 magnesium oxide 400 mg (241.3 mg magnesium) tablet 400 mg PO DAILY Qty: 30 RF: 5 allopurinol 100 mg Tablet 100 mg PO QAM RF: 0 levothyroxine 88 mcg Tablet 88 mcg PO QAM RF: 0 trazodone 100 mg Tablet 100 mg PO HS RF: 0 omeprazole 20 mg Capsule,Delayed Release(Dr/Ec) 20 mg PO QAM RF: 0 albuterol sulfate [ProAir HFA] 90 mcg/actuation HFA aerosol inhaler 2 puff INHALATION Q4H PRN (Reason: Shortness Of Breath) RF: 0 pregabalin [Lyrica] 75 mg capsule 75 mg PO TID RF: 0 lorazepam 0.5 mg tablet 0.5 mg PO DAILY PRN (Reason: Anxiety) RF: 0 prochlorperazine maleate 10 mg tablet 10 mg PO Q6H PRN (Reason: Nausea And Vomiting) RF: 0 Discontinued oxycodone 5 mg tablet 5 mg PO Q6H PRN (Reason: Pain) Qty: 30 RF: 0 nortriptyline 50 mg Capsule 100 mg PO HS RF: 0 capecitabine [Xeloda] 500 mg Tablet 1,500 mg PO BID RF: 0 triamterene-hydrochlorothiazid 37.5-25 mg tablet 1 tab PO QAM RF: 0 Discharge Orders: Discharge Order (Routine); Ordered 12/09/18 Ordered By: Salvatore Rubio Admission Data Admit Date/Time: 12/03/18 17:25 Attending Provider: Salvatore Rubio Admit Provider: Acosta Landers Primary Care Provider: Tawanda Ruvalcaba Other Providers: [facility] ; Acosta Landers ; Adam Haas Other Interventions: Discharge Summary Assessment (RN) Last Done: 12/09/18 13:53 DC Date/Time DO NOT enter until pt leaves facility: 12/09/18 14:45
== END 2018-12-09 14:45 | disposition home or self-care (01) | DRG 871 ==
LOC: ED 11:17 → SUATTDRO 17:25 → 2S 17:25 → 2W 12-07 14:35

== ENCOUNTER 2019-01-20 00:13 | Inpatient (IN) ==
[2019-01-20] MEDS ORDERED: SODIUM CHLORIDE 0.9% 500 ML IV ONE (01:14)
[2019-01-20 01:23] LABS: Basophils # (auto) 0.08 K/uL (0-0.2); Basophils % (auto) 0.4 %; Eosinophils % (auto) 1.1 %; Hematocrit (blood only) 30.3 % (37-47); Hemoglobin 9.4 g/dL (12.0-16.0); Immature Granulocytes # (auto) 0.04 K/uL (0.00-0.02); Immature Granulocytes % (auto) 0.2 %; Lymphocytes # (auto) 3.25 K/uL (1.2-3.4); Lymphocytes % (auto) 17.9 %; Mean Corpuscular Hemoglobin 24.5 pg (25-34); Mean Corpuscular Volume 79.1 fL (80-100); Mean Platelet Volume 9.7 fL (7.4-10.4); Monocytes % (auto) 10.5 %; Neutrophils # (auto) 12.64 K/uL (1.4-6.5); Neutrophils % (auto) 69.9 %; Platelet Count 323 K/uL (130-400); RDW Coefficient of Variation 20.1 % (11.5-14.5); RDW Standard Deviation 57.6 fL (36.4-46.3); Red Blood Count 3.83 M/uL (4.2-5.4); White Blood Count 18.11 K/uL (4.8-10.8)
[2019-01-20 01:45] LABS: Alanine Aminotransferase 12 U/L (12-78); Albumin Level 1.9 gm/dl (3.4-5.0); Aspartate Aminotransferase 24 U/L (15-37); BUN Creatinine Ratio 19.1 (10-20); Blood Urea Nitrogen 13 mg/dl (7-18); Calcium 8.3 mg/dl (8.5-10.1); Carbon Dioxide 31 mmol/L (21-32); Chloride 99 mmol/L (98-107); Creatinine Clr Calc Pharmacy 87.4 ml/min; Est GFR (African American) 105.9; Est GFR (Non-African American) 91.4; Glucose 115 mg/dl (70-99); Potassium 3.7 mmol/L (3.5-5.1); Sodium 136 mmol/L (136-145)
[2019-01-20 01:52] LABS: Appearance Urine Clear (Clear); Bacteria Urine Automated Negative (Negative); Blood Urine Negative (Negative); Cast Urine Automated 0 /lpf (0-5); Color Urine Dark Yellow; Epithelial Cell Urine Auto 0-5 /lpf (0-5); Glucose Urine UA Negative (Negative); Ketones Urine Negative (Negative); Leukocyte Esterase Urine Trace (Negative); Nitrite Urine Negative (Negative); Protein Urine Trace (Negative); RBC Urine Automated 0-4 /hpf (0-4); Urobilinogen Urine Negative (Negative); WBC Urine Automated 0 /hpf (0-5); pH Urine 5.5 (4.5-7.5)
[2019-01-20 01:56] LABS: Albumin Globulin Ratio 0.4 (0.9-2); Alkaline Phosphatase 236 U/L (45-117); Bilirubin,Total 0.6 mg/dl (0.2-1); Globulin 5.4 gm/dl (2.5-4.0); Total Protein 7.3 gm/dl (6.4-8.2)
[2019-01-20 02:04] LABS: Bilirubin Urine 1+ (Negative)
[2019-01-20 02:06] LABS: Ictotest Urine Positive (Negative)
[2019-01-20 02:08] LABS: T4 Free Thyroxine 1.25 ng/dl (0.8-1.6)
[2019-01-20 02:27] LABS: Anisocytosis Present; Spherocytes Occasional; Target Cells 1+
[2019-01-20 02:42] LABS: INR 1.8 (0.9-1.1); Partial Thromboplastin Ratio 1.2; Partial Thromboplastin Time 31.9 Seconds (21.0-31.0); Prothrombin Time 17.5 Seconds (9.0-12.0)
[2019-01-20 04:28] LABS: Troponin I < 0.015 ng/ml (0-0.045)
--- NOTE | 2019-01-20 04:46 | History & Physical Report ---
Date of Service January 20, 2019 Assessment & Plan (1) AMS (altered mental status): 63yoF with hx of metastatic cholangiocarcinoma, HTN, hypothyroidism and depression presents with AMS and hypoxia concerning for narcotic overdose vs. brain metastasis vs. infection vs. stroke. AMS: Very sedated and thus cannot walk, having more frequent myoclonic jerking, L sided facial droop and slurred speech also noted per daughter Concern for toxic effect from narcotics vs. brain metastasis vs. stroke vs. metabolic encephalopathy 2/[address] head no acute findings MRI head w/ot contrast ordered to rule out stroke vs. metastasis Neuro checks Q4H O2 prn Continue to monitor clinically Hypoxia: likely due to narcotic overdose in the setting of cancer related pain Hx of Emphysema/COPD: CXR no acute findings O2 as needed Hold narcotics Continue home albuterol prn Leukocytosis - appears to be chronic Afebrile, WBC 18.1 today, was 19.6 on 01/11 Lactate normal U/a was negative CXR no acute findings Blood cultures x 2 pending Consider abx if develops fever, clinically worsening/not improving despite stopping narcotics or cultures positive Cholangiocarcinoma: Stage 4 with liver, peritoneal and lung metastasis Progressive despite treatment with several different chemo agents/regimens Followed by Dr. Guy at [facility] in [place] - is due to get staging Continue Xeloda twice daily in a week on/week off cycle - next cycle on Tuesday01/22/19 Her imaging from November 23 as well as December 03 showed progressive disease. MRCP: 12/04/2018: Multifocal hepatic metastatic disease. Retroperitoneal masses along the dorsal pancreas and left adrenal gland, possible conglomerate lymphadenopathy or implants. CTA chest 01/01/2019: enlarging pulmonary and pleural-based nodular densities when compared 11/23/2018 concerning for recurrent/metastatic disease LFTs stable with persistently elevated alkaline phosphatase 236 today Low albumin 1.9, INR 1.8, PT 17,5, PTT 31.9 Pain control: hold home oxycodone in the setting of AMS/concern for narcotic overdose Nausea: compazine IV PRN Thoracic Back Pain: likely secondary to cholangiocarcinoma vs. bone metastasis Thoracic Spine XR: negative MRI ordered by pain managament on 01/19 Qt prolongation (not new) and EKG changes: Twave inversion in V2-V4 rate 92, NSR Qtc 514 No chest pain negative troponin Continue to monitor Constipation: Chronic in the setting of narcotic use KUB on 01/18/19 with moderate stool burden, no BM since 01/16/19 per daughter Miralax and colace arlyn Continue home senokot prn Hypertension/edema: Low BPs during last admission, cortisol test was normal Continue home triamterene/HCTZ prn for LE edema Chronic anemia: stable likely anemia of chronic disease vs. due to chemo/bone marrow suppression Hgb 9.4, baseline 9-10 Continue to monitor Depression/Anxiety/Insomnia: Pt has previously been on nortriptyline and lexapro Hold current trazodone, hydroxyzine as it can worsen her mental status Hypothyroidism: Sick euthyroid TSH 6.3 but free T4 - normal Continue home levothyroxine GERD: Continue home omeprazole Gout: Continue home allopurinol Neuropathy: Hold home Lyrica as it can worsen her mental status (2) Hypoxia: (3) Chronic obstructive pulmonary disease: (4) Depression: (5) Fatty liver disease, nonalcoholic: (6) Gastroesophageal reflux disease: (7) Gout: (8) Hypercholesterolemia: (9) Hypertension: (10) Hypothyroidism: (11) Constipation: (12) Leukocytosis: (13) Metastatic cancer: History of Present Illness Chief Complaint: Altered mental status Primary Care Provider: Ace Ruvalcaba MD 63yoF with hx of metastatic cholangiocarcinoma, HTN, hypothyroidism and depression presents with AMS and hypoxia. Per daughter patient very sedated and unable to walk however daughter has also noted left-sided facial droop, slurring of words and worried she may be having a stroke or heart attack. Per daughter patient was here in the ED on 01/18/2019 for back pain and was given to pain medicine shots and also sent home with oxycodone home pack which patient took over night into the morning of 01/19/2019. Daughter says 2 uncles had to help mom get home from the ED. Patient's daughter and friend had to help her get into the car to get into her pain management appointment and did not seem to be able to walk to the bathroom so daughter brought her in. Today patient was complaining of feeling hot, having a headache and having a hard time breathing however patient has not complained of any shortness of breath. Patient does report abdominal pain and back pain right now. Daughter has not noted and patient has not complained of any chest pain, abdominal pain, nausea, vomiting, diarrhea, cold symptoms, melena, dysuria, hematuria. Last bowel movement was on 01/16/2019. ED visit 01/18/19: given dilaudid 1mg IM x 2 for back pain. Pt has also been on oxycodone 10mg Q4-6H per pain management. Allergies Allergy/AdvReac Type Severity Reaction Status Date / Time metoclopramide Allergy Intermediate FACIAL AND Verified 01/20/19 01:47 FEET SWELLING, BONE PAIN silicone Allergy Intermediate SKIN MIRANDA Verified 01/20/19 01:47 celecoxib Allergy Mild RASH Verified 01/20/19 01:47 valsartan Allergy Unknown Verified 01/20/19 01:47 fentanyl AdvReac Severe Arm Unverified 01/20/19 01:47 Numbness atorvastatin AdvReac Intermediate headaches Verified 01/20/19 01:47 acetaminophen [From Tylenol] AdvReac Mild Liver Unverified 01/20/19 01:47 Issues Home Medications Home Medications Medication Instructions Recorded Confirmed Type prochlorperazine maleate 10 mg PO Q6H PRN 09/09/18 01/20/19 History albuterol sulfate HFA 90 2 puff INHALATION Q4H PRN gm 11/30/18 01/20/19 History mcg/actuation aerosol inhaler cholecalciferol (vitamin D3) 1,000 2,000 units PO QAM cap 11/30/18 01/20/19 History unit capsule hydroxyzine pamoate [Vistaril] 25 mg PO HS 7 Days #7 cap 01/01/19 01/20/19 Rx oxycodone 5 - 10 mg PO Q4H PRN 01/01/19 01/20/19 History polyethylene glycol 3350 [Miralax] 17 g PO DAILY PRN 01/01/19 01/20/19 History allopurinol 100 mg PO QAM 01/18/19 01/20/19 History levothyroxine 88 mcg PO QAM 01/18/19 01/20/19 History sennosides [Senokot] 17.2 mg PO QAM PRN 01/18/19 01/20/19 History Capecitaline 1,500 mg PO DIRECTED 01/20/19 01/20/19 History omeprazole 20 mg PO DAILY 01/20/19 01/20/19 History pregabalin [Lyrica] 75 mg PO TID 01/20/19 01/20/19 History trazodone 100 mg PO HS 01/20/19 01/20/19 History triamterene-hydrochlorothiazid 1 tab PO DAILY PRN 01/20/19 01/20/19 History Past Med/Surg History Medical History Severe sepsis (Acute) Lung cancer (Chronic) s/p left lower lobectomy Neuropathy (Chronic) [place] feet Asthma (Chronic) Chronic obstructive pulmonary disease (Chronic) never uses inhaler Gout (Chronic) Hypothyroid (Chronic) Hypertension (Chronic) Hyperlipidemia (Chronic) GERD (gastroesophageal reflux disease) (Chronic) Hiatal hernia (Chronic) Anxiety (Chronic) Depression (Chronic) Borderline diabetes mellitus (Chronic) Fatty liver Osteoarthritis (Chronic) Cholangiocarcinoma (Chronic) diagnosed 2018 - followed by [facility] Encounter for pre-operative examination (Resolved) Port-A-Cath in place Surgical History History of lobectomy of lung (Chronic) left lower lobe. [facility] 05/04/17. MAC 3, ETT 7.5, no issues noted in anesthesia record. H/O exploratory laparotomy (Resolved) for abdominal pain, found hiatal hernia History of arthroscopy of right knee (Resolved) History of cataract surgery (Resolved) History of section (Resolved) History of colonoscopy (Resolved) History of esophagogastroduodenoscopy (EGD) (Resolved) History of laminectomy (Resolved) History of surgery (Resolved) removal of "eccrine" gland History of total abdominal hysterectomy and bilateral salpingo-oophorectomy (Resolved) Hx of cholecystectomy (Resolved) History of laparoscopy 05/2018 [facility] - lymph node biopsy, liver biopsy Family History Brother Family history of lung cancer Sister Family history of lung cancer sister Family history of kidney cancer Family history of skin cancer Family history of breast cancer Family history of uterine cancer Family history of ovarian cancer Mother , age 89 "old age" No problems noted. 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 [employer] Feels Safe at Home: Yes Smoking Status: Former smoker Tobacco Type: cigarettes ; Cigarettes Per Day: QUIT 15 YR AGO, PREVIOUS 1/2 PPD X 25 YR ; Second Hand Exposure: No ; Hx Alcohol Use: No Hx Substance Use: No Review of Systems Review of Systems: As per HPI Physical Exam Physical Exam: General: Sleepy but responds to verbal stimuli HEENT: moist oral mucosa, R external auricular localized erythema/scab from likely trauma (daughter reports pt pulling on ear when in pain) Neuro: A&O to person only, sedated awakens to verbal stimuli and responds to some questions/commands but then goes back to sleep Pulm: R anterior mild crackles appreciated, equal breath sounds bilaterally CV: RRR, no m/r/g, cap refill < 2 secs Abdomen:+BS, no TTP in all quadrants, non-distended, surgical scars LE: 1+ LE pedal/ankle edema, no calf TTP Results & Data Vital Signs (Past 12 Hours) Vital Signs Temp Pulse Resp BP Pulse Ox 01/20/19 04:30 87 18 133/79 100 01/20/19 04:15 89 15 136/78 100 01/20/19 04:00 98 H 13 114/76 98 01/20/19 03:45 81 12 114/74 100 01/20/19 03:30 85 20 107/61 100 01/20/19 03:15 90 17 97/70 L 100 01/20/19 03:00 88 13 109/70 99 01/20/19 02:45 101 H 14 115/79 100 01/20/19 02:43 90 14 112/81 99 01/20/19 02:30 90 10 L 102/69 99 01/20/19 02:00 91 H 16 124/74 99 01/20/19 01:34 95 H 15 134/88 99 01/20/19 01:30 93 H 16 136/85 97 01/20/19 01:20 98 01/20/19 00:30 96 H 9 L 117/70 98 01/20/19 00:18 98 H 19 130/67 97 01/20/19 00:15 36.9 C 98 H 14 130/67 88 L Laboratory Results Abnormal lab results 01/20/19 01/20/19 01/20/19 Range/Units 01:11 01:11 01:30 WBC 18.11 H (4.8-10.8) K/uL RBC 3.83 L (4.2-5.4) M/uL Hgb 9.4 L (12.0-16.0) g/dL Hct 30.3 L (37-47) % MCV 79.1 L (80-100) fL MCH 24.5 L (25-34) pg MCHC 31.0 L (32-36) g/dL RDW Std Deviation 57.6 H (36.4-46.3) fL RDW Coeff of Harish 20.1 H (11.5-14.5) % Immature Gran # (Auto) 0.04 H (0.00-0.02) K/uL Neut # (Auto) 12.64 H (1.4-6.5) K/uL Kings # (Auto) 1.90 H (0.11-0.59) K/uL PT (9.0-12.0) Seconds INR (0.9-1.1) APTT (21.0-31.0) Seconds Glucose 115 H (70-99) mg/dl Calcium 8.3 L (8.5-10.1) mg/dl Alkaline Phosphatase 236 H (45-117) U/L Albumin 1.9 L (3.4-5.0) gm/dl Globulin 5.4 H (2.5-4.0) gm/dl Albumin/Globulin Ratio 0.4 L (0.9-2) TSH 6.300 H (0.300-4.500) uIu/ml Urine Protein Trace H (Negative) Urine Bilirubin 1+ H (Negative) Ur Leukocyte Esterase Trace H (Negative) 01/20/19 Range/Units 02:23 WBC (4.8-10.8) K/uL RBC (4.2-5.4) M/uL Hgb (12.0-16.0) g/dL Hct (37-47) % MCV (80-100) fL MCH (25-34) pg MCHC (32-36) g/dL RDW Std Deviation (36.4-46.3) fL RDW Coeff of Harish (11.5-14.5) % Immature Gran # (Auto) (0.00-0.02) K/uL Neut # (Auto) (1.4-6.5) K/uL Kings # (Auto) (0.11-0.59) K/uL PT 17.5 H (9.0-12.0) Seconds INR 1.8 H (0.9-1.1) APTT 31.9 H (21.0-31.0) Seconds Glucose (70-99) mg/dl Calcium (8.5-10.1) mg/dl Alkaline Phosphatase (45-117) U/L Albumin (3.4-5.0) gm/dl Globulin (2.5-4.0) gm/dl Albumin/Globulin Ratio (0.9-2) TSH (0.300-4.500) uIu/ml Urine Protein (Negative) Urine Bilirubin (Negative) Ur Leukocyte Esterase (Negative) Code Status & VTE Plan Code Status DNR/DNI per daughter VTE Prophylaxis Plan VTE Prophylaxis will be ordered: Yes Supervising Physician Co-Signing Physician Notes Patient seen and examined, chart reviewed, case discussed with Dr. Hatch and I agree with her assessment and plan as documented above -MR brain -Palliative consult -Pain control balance with avoiding over sedation PG Care Time/CCT Total # of Minutes Spent Total Time Spent with Patient: Total time spent is greater than 50% in coordination of care (as documented) at patient's floor/unit and/or counseling patient: Resident Activity Tracking Resident Involvement: Resident Care Provided Care Provided: Adult Hospital Medicine (1) Leukocytosis Leukocytosis type: unspecified Qualified Code(s): D72.829 - Elevated white blood cell count, unspecified (2) AMS (altered mental status) Altered mental status type: unspecified Qualified Code(s): R41.82 - Altered mental status, unspecified (3) Constipation Constipation type: slow transit constipation Qualified Code(s): K59.01 - Slow transit constipation
[2019-01-20] MEDS ORDERED: ALBUTEROL HFA 8 GM INHALER INH PRN (05:49)
[2019-01-20] MEDS ORDERED: [UNRECOGNIZED DRUG - OTHER] PO SCH (05:49)
[2019-01-20] MEDS ORDERED: TRIAMTERENE/HCTZ 37.5/25MG TAB PO PRN (05:49)
[2019-01-20] MEDS ORDERED: PROCHLORPERAZINE 10 MG in SYRINGE 8 ML IV PRN (05:49)
[2019-01-20] MEDS ORDERED: ACETAMINOPHEN 325 MG TAB PO PRN (05:49)
[2019-01-20] MEDS: LEVOTHYROXINE SODIUM 88 MCG TABLET PO SCH (06:32)
[2019-01-20] MEDS: XELODA~ORDER AWAITING ACTION SCH ×3 (06:44→15:28)
--- NOTE | 2019-01-20 07:27 | Emergency Department Note ---
Entered by Magi Morin acting as a scribe for Nhi Nath DO History of Present Illness General Chief complaint: Altered Mental Status Stated complaint: Altered Mental Status Time Seen by Provider: 01/20/19 00:26 Source: patient and other (nursing staff) History of Present Illness Provider complaint: altered mental status Onset (ago): day(s) 1 Location: head Relieved By: + none Exacerbated By: + none Associated symptoms: + denies other symptoms Treatments prior to arrival: other (Oxycodone) The patient is a 63 year old female who presents to the Emergency Room with complaints of altered mental status for the past day. Per the nursing staff, the patient was here yesterday for complaints of flank pain. They state that the patient has a history of lung cancer and is 7 month into chemotherapy which she gets at [facility]. The family reports that yesterday the patient was complaining of right flank pain where she got her nerve block done. They report that the patient was slurring her words and was complaining of a headache today. They state that they were able to get her to the pain clinic today where they gave her Cymbalta. The family decided not to administer the Cymbalta since she is already taking Lyrica. The patient received Oxycodone from her ED visit yesterday and has taken 4 doses last night and 2 at 1999 today. They mention that they have a family history of cancer. The patient states that she currently does not have any pain. Home Medications Home Medications Medication Instructions Recorded Confirmed Type prochlorperazine maleate 10 mg PO Q6H PRN 09/09/18 01/20/19 History albuterol sulfate HFA 90 2 puff INHALATION Q4H PRN gm 11/30/18 01/20/19 History mcg/actuation aerosol inhaler cholecalciferol (vitamin D3) 1,000 2,000 units PO QAM cap 11/30/18 01/20/19 History unit capsule hydroxyzine pamoate [Vistaril] 25 mg PO HS 7 Days #7 cap 01/01/19 01/20/19 Rx oxycodone 5 - 10 mg PO Q4H PRN 01/01/19 01/20/19 History polyethylene glycol 3350 [Miralax] 17 g PO DAILY PRN 01/01/19 01/20/19 History allopurinol 100 mg PO QAM 01/18/19 01/20/19 History levothyroxine 88 mcg PO QAM 01/18/19 01/20/19 History sennosides [Senokot] 17.2 mg PO QAM PRN 01/18/19 01/20/19 History Capecitaline 1,500 mg PO DIRECTED 01/20/19 01/20/19 History omeprazole 20 mg PO DAILY 01/20/19 01/20/19 History pregabalin [Lyrica] 75 mg PO TID 01/20/19 01/20/19 History trazodone 100 mg PO HS 01/20/19 01/20/19 History triamterene-hydrochlorothiazid 1 tab PO DAILY PRN 01/20/19 01/20/19 History Allergies Allergy/AdvReac Type Severity Reaction Status Date / Time metoclopramide Allergy Intermediate FACIAL AND Verified 01/20/19 01:47 FEET SWELLING, BONE PAIN silicone Allergy Intermediate SKIN MIRANDA Verified 01/20/19 01:47 celecoxib Allergy Mild RASH Verified 01/20/19 01:47 valsartan Allergy Unknown Verified 01/20/19 01:47 fentanyl AdvReac Severe Arm Unverified 01/20/19 01:47 Numbness atorvastatin AdvReac Intermediate headaches Verified 01/20/19 01:47 acetaminophen [From Tylenol] AdvReac Mild Liver Unverified 01/20/19 01:47 Issues Past Med/Surg History Medical History Severe sepsis (Acute) Lung cancer (Chronic) s/p left lower lobectomy Neuropathy (Chronic) [place] feet Asthma (Chronic) Chronic obstructive pulmonary disease (Chronic) never uses inhaler Gout (Chronic) Hypothyroid (Chronic) Hypertension (Chronic) Hyperlipidemia (Chronic) GERD (gastroesophageal reflux disease) (Chronic) Hiatal hernia (Chronic) Anxiety (Chronic) Depression (Chronic) Borderline diabetes mellitus (Chronic) Fatty liver Osteoarthritis (Chronic) Cholangiocarcinoma (Chronic) diagnosed 2019 - followed by [facility] Encounter for pre-operative examination (Resolved) Port-A-Cath in place Surgical History History of lobectomy of lung (Chronic) left lower lobe. [facility] 05/04/17. MAC 3, ETT 7.5, no issues noted in anesthesia record. H/O exploratory laparotomy (Resolved) for abdominal pain, found hiatal hernia History of arthroscopy of right knee (Resolved) History of cataract surgery (Resolved) History of section (Resolved) History of colonoscopy (Resolved) History of esophagogastroduodenoscopy (EGD) (Resolved) History of laminectomy (Resolved) History of surgery (Resolved) removal of "eccrine" gland History of total abdominal hysterectomy and bilateral salpingo-oophorectomy (Resolved) Hx of cholecystectomy (Resolved) History of laparoscopy 05/2018 [facility] - lymph node biopsy, liver biopsy Family History Brother Family history of lung cancer Sister Family history of lung cancer sister Family history of kidney cancer Family history of skin cancer Family history of breast cancer Family history of uterine cancer Family history of ovarian cancer Mother , age 89 "old age" No problems noted. 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 and A total of 10 systems reviewed and were otherwise negative Physical Exam Vital Signs Vital Signs - 24 hr 01/20/19 00:15 01/20/19 00:18 01/20/19 00:30 Temperature 36.9 C Temperature Source Oral Sepsis Recent Fever Within 48 Hours Yes Sepsis Action Taken by Nursing No Action Required Pulse Rate 98 H 98 H 96 H Pulse Rate from SpO2 Sensor 99 H 96 H Respiratory Rate 14 19 9 L Respiratory Effort / Characteristics Non-Labored Spontaneous Respiratory Depth Normal Respiratory Pattern Regular Blood Pressure 130/67 130/67 117/70 Blood Pressure Mean 88 88 85 Blood Pressure Position Lying Pulse Oximetry 88 L 97 98 Oxygen Delivery Method Room Air Oxygen Flow Rate 01/20/19 01:20 01/20/19 01:30 01/20/19 01:34 Temperature Temperature Source Sepsis Recent Fever Within 48 Hours Sepsis Action Taken by Nursing Pulse Rate 93 H 95 H Pulse Rate from SpO2 Sensor 92 H 95 H Respiratory Rate 16 15 Respiratory Effort / Characteristics Respiratory Depth Respiratory Pattern Blood Pressure 136/85 134/88 Blood Pressure Mean 102 103 Blood Pressure Position Pulse Oximetry 98 97 99 Oxygen Delivery Method Nasal Cannula Oxygen Flow Rate 3 01/20/19 02:00 01/20/19 02:30 01/20/19 02:43 Temperature Temperature Source Sepsis Recent Fever Within 48 Hours Sepsis Action Taken by Nursing Pulse Rate 91 H 90 90 Pulse Rate from SpO2 Sensor 90 89 91 H Respiratory Rate 16 10 L 14 Respiratory Effort / Characteristics Respiratory Depth Respiratory Pattern Blood Pressure 124/74 102/69 112/81 Blood Pressure Mean 90 80 91 Blood Pressure Position Pulse Oximetry 99 99 99 Oxygen Delivery Method Oxygen Flow Rate 01/20/19 02:45 01/20/19 03:00 01/20/19 03:15 Temperature Temperature Source Sepsis Recent Fever Within 48 Hours Sepsis Action Taken by Nursing Pulse Rate 101 H 88 90 Pulse Rate from SpO2 Sensor 100 H 89 88 Respiratory Rate 14 13 17 Respiratory Effort / Characteristics Respiratory Depth Respiratory Pattern Blood Pressure 115/79 109/70 97/70 L Blood Pressure Mean 91 83 79 Blood Pressure Position Pulse Oximetry 100 99 100 Oxygen Delivery Method Nasal Cannula Nasal Cannula Nasal Cannula Oxygen Flow Rate 4 4 4 01/20/19 03:30 01/20/19 03:45 01/20/19 04:00 Temperature Temperature Source Sepsis Recent Fever Within 48 Hours Sepsis Action Taken by Nursing Pulse Rate 85 81 98 H Pulse Rate from SpO2 Sensor 85 82 99 H Respiratory Rate 20 12 13 Respiratory Effort / Characteristics Respiratory Depth Respiratory Pattern Blood Pressure 107/61 114/74 114/76 Blood Pressure Mean 76 87 88 Blood Pressure Position Pulse Oximetry 100 100 98 Oxygen Delivery Method Nasal Cannula Nasal Cannula Nasal Cannula Oxygen Flow Rate 3 3 3 01/20/19 04:15 01/20/19 04:30 Temperature Temperature Source Sepsis Recent Fever Within 48 Hours Sepsis Action Taken by Nursing Pulse Rate 89 87 Pulse Rate from SpO2 Sensor 89 86 Respiratory Rate 15 18 Respiratory Effort / Characteristics Respiratory Depth Respiratory Pattern Blood Pressure 136/78 133/79 Blood Pressure Mean 97 97 Blood Pressure Position Pulse Oximetry 100 100 Oxygen Delivery Method Nasal Cannula Nasal Cannula Oxygen Flow Rate 4 4 General: Somnolent and difficult to arouse. HEENT: Head - normocephalic and atraumatic Pupils are equal, round, and reactive to light. Extraocular eye muscles are intact, and sclera are anicteric. Nose - moist nasal mucosa without discharge. Mouth - dry buccal mucosa. Oropharynx is nonerythematous and there is no tonsillar exudate or edema noted. Neck: Supple; no JVD, nuchal rigidity, cervical lymphadenopathy, or auscultated bruits. Heart: Regular rate and rhythm. There is a normal S1 and S2 with no murmurs, clicks, or gallops appreciated. Lungs: Clear to auscultation bilaterally with no wheezes, rales, or rhonchi. Abdomen: Soft, completely nontender, nondistended, with hypoactive bowel sounds. There are no palpable pulsatile masses or hepatosplenomegaly. There is no guarding, rigidity, or rebound noted. Extremities: No evidence of cyanosis, clubbing, or edema. There are easily palpable peripheral pulses. Skin: warm and dry with good turgor and no rashes. Neuro: Patient would follow commands slowly, answers appropriately. Course 0102: The patient was evaluated in room B10, and a complete history and physical examination were performed. Previous electronic medical records were reviewed. Labs were drawn as above. The patient was observed on the body builder and pulse oximeter. She remained in normal sinus rhythm. A twelve-lead EKG was obtained. The patient went for CT scan of the brain. 0209: Sodium Chloride was administered through IV. 0245: I reviewed the patient's case with Dr. Tovar- [facility] Hospitalist. She will evaluate the patient for further management. Administered Medications Allopurinol (Zyloprim) 100 mg PO QAM [facility] Stop: 02/19/19 08:59 Last Admin: 01/20/19 09:09 Dose: 100 mg Documented by: [id number] Docusate Sodium (Colace) 100 mg PO BID [facility] Stop: 02/19/19 08:59 Last Admin: 01/20/19 20:42 Dose: 100 mg Documented by: [id number] Admin: 01/20/19 09:09 Dose: 100 mg Documented by: [id number] Levothyroxine Sodium (Synthroid) 88 mcg PO DAILYBB [facility] Stop: 02/19/19 06:29 Last Admin: 01/20/19 06:32 Dose: 88 mcg Documented by: [id number] Oxycodone HCl (Roxicodone Immediate Rel) 5 mg PO Q4H PRN PRN Reason: Pain Stop: 02/03/19 16:46 Last Admin: 01/20/19 22:16 Dose: 5 mg Documented by: [id number] Admin: 01/20/19 18:00 Dose: 5 mg Documented by: [id number] Pantoprazole Sodium (Protonix) 40 mg PO DAILY [facility] Stop: 02/19/19 08:59 Last Admin: 01/20/19 09:09 Dose: 40 mg Documented by: [id number] Polyethylene Glycol (Miralax Powder Packet) 17 gm PO DAILY [facility] Stop: 02/19/19 08:59 Last Admin: 01/20/19 09:10 Dose: 17 gm Documented by: [id number] Vitamin D (Vitamin D3) 2,000 units PO QAM [facility] Stop: 02/19/19 08:59 Last Admin: 01/20/19 09:09 Dose: 2,000 units Documented by: [id number] Discontinued Medications Hydromorphone HCl (Dilaudid) 1 mg IV NOW STA Stop: 01/20/19 12:08 Last Admin: 01/20/19 12:55 Dose: Not Given Documented by: [id number] Hydromorphone HCl (Dilaudid) 0.5 mg IV NOW STA Stop: 01/20/19 12:08 Last Admin: 01/20/19 12:47 Dose: 0.5 mg Documented by: [id number] Sodium Chloride (Nss) 500 mls @ 999 mls/hr IV .Q31M ONE Stop: 01/20/19 01:44 Last Infusion: 01/20/19 02:09 Dose: 0 mls/hr Documented by: [id number] Admin: 01/20/19 01:37 Dose: 999 mls/hr Documented by: [id number] Miscellaneous (Order Awaiting Action) 1 ea N/A QS [facility] Stop: 02/19/19 05:59 Last Admin: 01/20/19 15:28 Dose: 1 ea Documented by: [id number] Admin: 01/20/19 09:08 Dose: Not Given Documented by: [id number] Admin: 01/20/19 06:44 Dose: 1 ea Documented by: [id number] Medical Decision Making Differential Diagnosis Differential diagnosis includes: Intracranial hemorrhage, metastatic disease to the brain, medication side effects, UTI, sepsis, hypoglycemia, and hypergly cemia. Medical Records Attestation: I reviewed the patient's medical records. Home Medications Current Medication List: was personally reviewed by me Laboratory Data Attestation: I reviewed the patient's lab results. Result diagrams: 01/20/19 01:11 01/20/19 01:11 Lab Results 01/20/19 01/20/19 01/20/19 Range/Units 01:11 01:11 01:30 WBC 18.11 H (4.8-10.8) K/uL RBC 3.83 L (4.2-5.4) M/uL Hgb 9.4 L (12.0-16.0) g/dL Hct 30.3 L (37-47) % MCV 79.1 L (80-100) fL MCH 24.5 L (25-34) pg MCHC 31.0 L (32-36) g/dL RDW Std Deviation 57.6 H (36.4-46.3) fL RDW Coeff of Harish 20.1 H (11.5-14.5) % Plt Count 323 (130-400) K/uL MPV 9.7 (7.4-10.4) fL Immature Gran % (Auto) 0.2 % Neut % (Auto) 69.9 % Lymph % (Auto) 17.9 % [place] % (Auto) 10.5 % Eos % (Auto) 1.1 % Baso % (Auto) 0.4 % Immature Gran # (Auto) 0.04 H (0.00-0.02) K/uL Neut # (Auto) 12.64 H (1.4-6.5) K/uL Lymph # (Auto) 3.25 (1.2-3.4) K/uL [place] # (Auto) 1.90 H (0.11-0.59) K/uL Eos # (Auto) 0.20 (0-0.5) K/uL Baso # (Auto) 0.08 (0-0.2) K/uL Hypersegmented Neuts 1+ Anisocytosis Present Spherocytes Occasional Target Cells 1+ PT (9.0-12.0) Seconds INR (0.9-1.1) APTT (21.0-31.0) Seconds PTT Ratio Sodium 136 (136-145) mmol/L Potassium 3.7 (3.5-5.1) mmol/L Chloride 99 (98-107) mmol/L Carbon Dioxide 31 (21-32) mmol/L Anion Gap 6.0 (3-11) BUN 13 (7-18) mg/dl Creatinine 0.69 (0.6-1.2) mg/dl Est Cr Clr Drug Dosing 87.4 ml/min Est GFR ( Amer) 105.9 Est GFR (Non-Af Amer) 91.4 BUN/Creatinine Ratio 19.1 (10-20) Glucose 115 H (70-99) mg/dl Lactate (0.4-2.0) mmol/L Calcium 8.3 L (8.5-10.1) mg/dl Total Bilirubin 0.6 (0.2-1) mg/dl AST 24 (15-37) U/L ALT 12 (12-78) U/L Alkaline Phosphatase 236 H (45-117) U/L Troponin I < 0.015 (0-0.045) ng/ml Total Protein 7.3 (6.4-8.2) gm/dl Albumin 1.9 L (3.4-5.0) gm/dl Globulin 5.4 H (2.5-4.0) gm/dl Albumin/Globulin Ratio 0.4 L (0.9-2) TSH 6.300 H (0.300-4.500) uIu/ml Free T4 1.25 (0.8-1.6) ng/dl Urine Color Dark Yellow Urine Appearance Clear (Clear) Urine pH 5.5 (4.5-7.5) Ur Specific [place] 1.020 (1.000-1.030) Urine Protein Trace H (Negative) Urine Glucose (UA) Negative (Negative) Urine Ketones Negative (Negative) Urine Blood Negative (Negative) Urine Nitrite Negative (Negative) Urine Bilirubin 1+ H (Negative) Urine Urobilinogen Negative (Negative) Ur Leukocyte Esterase Trace H (Negative) Urine WBC (Auto) 0 (0-5) /hpf Urine RBC (Auto) 0-4 (0-4) /hpf U Hyaline Cast (Auto) 0 (0-5) /lpf U Epithel Cells (Auto) 0-5 (0-5) /lpf Urine Bacteria (Auto) Negative (Negative) 01/20/19 01/20/19 Range/Units 02:23 02:23 WBC (4.8-10.8) K/uL RBC (4.2-5.4) M/uL Hgb (12.0-16.0) g/dL Hct (37-47) % MCV (80-100) fL MCH (25-34) pg MCHC (32-36) g/dL RDW Std Deviation (36.4-46.3) fL RDW Coeff of Harish (11.5-14.5) % Plt Count (130-400) K/uL MPV (7.4-10.4) fL Immature Gran % (Auto) % Neut % (Auto) % Lymph % (Auto) % [place] % (Auto) % Eos % (Auto) % Baso % (Auto) % Immature Gran # (Auto) (0.00-0.02) K/uL Neut # (Auto) (1.4-6.5) K/uL Lymph # (Auto) (1.2-3.4) K/uL [place] # (Auto) (0.11-0.59) K/uL Eos # (Auto) (0-0.5) K/uL Baso # (Auto) (0-0.2) K/uL Hypersegmented Neuts Anisocytosis Spherocytes Target Cells PT 17.5 H (9.0-12.0) Seconds INR 1.8 H (0.9-1.1) APTT 31.9 H (21.0-31.0) Seconds PTT Ratio 1.2 Sodium (136-145) mmol/L Potassium (3.5-5.1) mmol/L Chloride (98-107) mmol/L Carbon Dioxide (21-32) mmol/L Anion Gap (3-11) BUN (7-18) mg/dl Creatinine (0.6-1.2) mg/dl Est Cr Clr Drug Dosing ml/min Est GFR ( Amer) Est GFR (Non-Af Amer) BUN/Creatinine Ratio (10-20) Glucose (70-99) mg/dl Lactate 2.0 (0.4-2.0) mmol/L Calcium (8.5-10.1) mg/dl Total Bilirubin (0.2-1) mg/dl AST (15-37) U/L ALT (12-78) U/L Alkaline Phosphatase (45-117) U/L Troponin I (0-0.045) ng/ml Total Protein (6.4-8.2) gm/dl Albumin (3.4-5.0) gm/dl Globulin (2.5-4.0) gm/dl Albumin/Globulin Ratio (0.9-2) TSH (0.300-4.500) uIu/ml Free T4 (0.8-1.6) ng/dl Urine Color Urine Appearance (Clear) Urine pH (4.5-7.5) Ur Specific [place] (1.000-1.030) Urine Protein (Negative) Urine Glucose (UA) (Negative) Urine Ketones (Negative) Urine Blood (Negative) Urine Nitrite (Negative) Urine Bilirubin (Negative) Urine Urobilinogen (Negative) Ur Leukocyte Esterase (Negative) Urine WBC (Auto) (0-5) /hpf Urine RBC (Auto) (0-4) /hpf U Hyaline Cast (Auto) (0-5) /lpf U Epithel Cells (Auto) (0-5) /lpf Urine Bacteria (Auto) (Negative) Imaging Data Attestation: I personally reviewed and interpreted this imaging study as follows: My Impression: XR Chest: No obvious pulmonary infiltrates. Unchanged from 01/13 Radiologist's Impression: Radiology results as stated below per my review and the radiologist's interpretation: CT HEAD: 12/03/18. No evidence of acute intracranial abnormality or skull fracture. Volume loss and small vessel disease. Radiologist: Marika Dempsey M.D. Study ready at 0156 and initial results transmitted at 0210. Blood Pressure Blood Pressure Findings: Elevated blood pressure Blood Pressure Disposition: further management by hospitalist ABILIO Narrative The patient is a 63 year old female who presents to the Emergency Room with complaints of altered mental status for the past day. The patient is slow to answer questions but does follow commands. I question whether the patient could have an accidental overdose of her opioid medications. By the end of her visit here in the emergency department, she did seem to wake a bit more easily but would follow back to sleep during simple conversation. The family does not feel comfortable taking this patient home stating that she can barely stay awake. It seems by history that they gave the patient a total of 6 doses of oxycodone in the past 20 to 24 hours. The patient is also taking Lyrica. Upon presentation to the emergency department, the patient was hypoxic. Without supplemental oxygen, the patient's O2 saturations would dip down once she would fall asleep and become more somnolent. The family explained that the patient complained of a severe headache upon awakening at one point this afternoon. With her history of metastatic cancer, I was concerned for the possibility of mets or intra-cranial hemorrhage. CT scan of the brain was unremarkable. I discussed the case with Dr. Tovar who will evaluate the patient for further management. Impression & Plan AMS (altered mental status), Hypoxia Critical Care Time Critical Care Time: Yes Total Critical Care Time: 30 I have personally spent 30 minutes of critical care time in the direct management of this patient. This includes bedside care, interpretation of diagnostic studies, and testing, discussion with consultants, patient, and family members, and other required patient management activities. This 30 minutes is in excess of all separately billable procedures. Discharge Plan Visit Data *Final* Discharge Date/Time: 01/20/19 05:25 Chief Complaint: Altered Mental Status Stated Complaint: Altered Mental Status ED Provider: Nhi Nath Discharge Problem: AMS (altered mental status), Hypoxia Patient Disposition: Admitted As Inpatient Discharge Instructions Interventions: ED Discharge Assessment Last Done: 01/20/19 05:25 Discharge Problem: AMS (altered mental status) Qualifiers: Altered mental status type: unspecified Qualified Code(s): R41.82 - Altered mental status, unspecified The scribe's documentation has been prepared under my direction and personally reviewed by me in its entirety. I confirm that the note above accurately reflects all work, treatment, procedures, and medical decision making performed by me.
--- NOTE | 2019-01-20 07:57 | Family Medicine Progress Note ---
Date of Service January 20, 2019 Assessment & Plan (1) AMS (altered mental status): 63yoF with hx of metastatic cholangiocarcinoma, HTN, hypothyroidism and depression presents with AMS and hypoxia concerning for narcotic overdose vs. brain metastasis vs. infection vs. stroke. AMS: Myoclonic jerks. No focal neuro deficit. s/p Narcan injection in ED. CT head no acute findings Likely from opiate overuse due to uncontrolled pain. since becoming more alert - MRI cancelled. Neuro checks Q4H O2 prn Continue to monitor clinically Hypoxia: likely due to narcotic overuse in the setting of cancer related pain Hx of Emphysema/COPD: CXR no acute findings O2 as needed Patient became more alert and was requested pain management, ordered Dilaudid 0.5mg x1 and will reassess. Continue home albuterol prn Thoracic Back Pain: likely secondary to cholangiocarcinoma vs. bone metastasis Thoracic Spine XR: negative MRI ordered by pain management on 01/19; again requires sedation for MRI will avoid with current acute episode Will reintroduce narcotics as tolerated. consult pain mx on tuesday if still around. Leukocytosis - appears to be chronic Afebrile, WBC 18.1 today, was 19.6 on 01/11 Lactate normal U/a was negative CXR no acute findings Blood cultures x 2 pending Consider abx if develops fever, clinically worsening/not improving despite stopping narcotics or cultures positive, doubt this will be needed currently Cholangiocarcinoma: Stage 4 with liver, peritoneal and lung metastasis Progressive despite treatment with several different chemo agents/regimens Followed by Dr. Guy at [facility] in [place] - is due to get staging Continue Xeloda twice daily in a week on/week off cycle - next cycle on Tuesday01/22/19 Her imaging from November 23 as well as December 03 showed progressive disease. MRCP: 12/04/2018: Multifocal hepatic metastatic disease. Retroperitoneal masses along the dorsal pancreas and left adrenal gland, possible conglomerate lymphadenopathy or implants. CTA chest 01/01/2019: enlarging pulmonary and pleural-based nodular densities when compared 11/23/2018 concerning for recurrent/metastatic disease LFTs stable with persistently elevated alkaline phosphatase 236 today Low albumin 1.9, INR 1.8, PT 17,5, PTT 31.9 Pain control: home oxycodone was held on admission in the setting of AMS/concern for narcotic overdose; now more alert, will treat pain appropriately Nausea: compazine IV PRN Qt prolongation (not new) and EKG changes: Twave inversion in V2-V4 rate 92, NSR Qtc 514 No chest pain negative troponin Continue to monitor for symptoms Constipation: Chronic in the setting of narcotic use KUB on 01/18/19 with moderate stool burden, no BM since 01/16/19 per daughter Miralax and colace arlyn Continue home senokot prn Hypertension/edema: Low BPs during last admission, cortisol test was normal Continue home triamterene/HCTZ prn for LE edema Chronic anemia: stable likely anemia of chronic disease vs. due to chemo/bone marrow suppression Hgb 9.4, baseline 9-10 Continue to monitor Depression/Anxiety/Insomnia: Pt has previously been on nortriptyline and lexapro Hold current trazodone, hydroxyzine as it can worsen her mental status Hypothyroidism: Sick euthyroid TSH 6.3 but free T4 - normal Continue home levothyroxine GERD: Continue home omeprazole Gout: Continue home allopurinol Neuropathy: Hold home Lyrica as it can worsen her mental status; will most likely restart once perks back up FEN: Regular diet DVT: None as liver dysfunction from cancer with INR 1.8 without anti-coagulation - chemical anticoagulated contraindicated Code: DNR/DNI (2) Hypoxia: (3) Chronic obstructive pulmonary disease: (4) Depression: (5) Fatty liver disease, nonalcoholic: (6) Gastroesophageal reflux disease: (7) Gout: (8) Hypercholesterolemia: (9) Hypertension: (10) Hypothyroidism: (11) Constipation: (12) Leukocytosis: (13) Metastatic cancer: Supervising Physician Co-Signing Physician Notes Resident Physician Supervision Note: I independently interviewed and examined the patient and verified the webster history and physical, reviewed labs and image studies, discussed the case with the resident Dr. Gleason and agree with the findings and care plan. Subjective Nursing staff and patient report improved mental status this morning and is more alert. She states she is still drowsy and not back to her neuro baseline. She denies any head trauma prior to events leading her here. She recalls being at ED prior to ED visit leading to hospitalization. She denies any unilateral weakness/numbness. She did report being hungry and requested food. There was a MRI ordered by admitting team, but patient reports significant clostrophobia and would require sedation for imaging. She notes no acute pain complaints this morning, no chest pain, shortness of breath, nausea, vomiting, diarrhea, abdominal pain, back pain. She notes she lives alone but has a friend and daughter who will stay with her during day and also will check in on her at night. Review of Systems Review of Systems: as noted in HPI Physical Exam Constitutional: WD/WN, vitals as above cooperative Eyes: + anicteric sclerae and EOM intact bilaterally Respiratory: normal respiratory effort; no respiratory distress and no labored breathing Auscultation: lungs clear to auscultation bilaterally Cardiovascular: Rate/Rhythm: regular rate and regular rhythm Gastrointestinal (Abdomen): Inspection/Auscultation: abdomen not distended Percussion/Palpation: abdomen soft; abdomen nontender, no guarding and abdomen not rigid Musculoskeletal: Head/Neck/Chest: + head abnormal to inspection, normocephalic and head atraumatic moves all extremities Skin: generalized pallor Neurologic: CN's II-XI intact bilaterally, moves all extremities and awake; no focal motor deficits and not confused Speech / Cognition: normal speech Motor/Sensory: no sensory deficit Psychiatric: Orientation: alert and oriented x 3 Eye Contact: good eye contact Affect: + flat affect Results & Data Vital Signs (Past 12 Hours) Vital Signs Temp Pulse Pulse Resp BP BP Pulse Ox 01/20/19 07:30 37.0 C 96 H 20 116/71 98 01/20/19 06:47 105 H 01/20/19 05:50 36.5 C 103 H 16 133/81 94 01/20/19 05:15 92 H 11 L 123/87 99 01/20/19 05:00 94 H 11 L 110/75 99 01/20/19 04:45 99 H 14 146/100 H 99 01/20/19 04:30 87 18 133/79 100 01/20/19 04:15 89 15 136/78 100 01/20/19 04:00 98 H 13 114/76 98 01/20/19 03:45 81 12 114/74 100 01/20/19 03:30 85 20 107/61 100 01/20/19 03:15 90 17 97/70 L 100 01/20/19 03:00 88 13 109/70 99 01/20/19 02:45 101 H 14 115/79 100 01/20/19 02:43 90 14 112/81 99 01/20/19 02:30 90 10 L 102/69 99 01/20/19 02:00 91 H 16 124/74 99 01/20/19 01:34 95 H 15 134/88 99 01/20/19 01:30 93 H 16 136/85 97 01/20/19 01:20 98 01/20/19 00:30 96 H 9 L 117/70 98 01/20/19 00:18 98 H 19 130/67 97 01/20/19 00:15 36.9 C 98 H 14 130/67 88 L Laboratory Results Laboratory Results - last 24 hr 01/20/19 01/20/19 01/20/19 01:11 01:11 01:30 WBC 18.11 H RBC 3.83 L Hgb 9.4 L Hct 30.3 L MCV 79.1 L MCH 24.5 L MCHC 31.0 L RDW Std Deviation 57.6 H RDW Coeff of Harish 20.1 H Plt Count 323 MPV 9.7 Immature Gran % (Auto) 0.2 Neut % (Auto) 69.9 Lymph % (Auto) 17.9 Fillmore % (Auto) 10.5 Eos % (Auto) 1.1 Baso % (Auto) 0.4 Immature Gran # (Auto) 0.04 H Neut # (Auto) 12.64 H Lymph # (Auto) 3.25 Fillmore # (Auto) 1.90 H Eos # (Auto) 0.20 Baso # (Auto) 0.08 Hypersegmented Neuts 1+ Anisocytosis Present Spherocytes Occasional Target Cells 1+ PT INR APTT PTT Ratio Sodium 136 Potassium 3.7 Chloride 99 Carbon Dioxide 31 Anion Gap 6.0 BUN 13 Creatinine 0.69 Est Cr Clr Drug Dosing 87.4 Est GFR ( Amer) 105.9 Est GFR (Non-Af Amer) 91.4 BUN/Creatinine Ratio 19.1 Glucose 115 H Lactate Calcium 8.3 L Total Bilirubin 0.6 AST 24 ALT 12 Alkaline Phosphatase 236 H Troponin I < 0.015 Total Protein 7.3 Albumin 1.9 L Globulin 5.4 H Albumin/Globulin Ratio 0.4 L TSH 6.300 H Free T4 1.25 Urine Color Dark Yellow Urine Appearance Clear Urine pH 5.5 Ur Specific Justice 1.020 Urine Protein Trace H Urine Glucose (UA) Negative Urine Ketones Negative Urine Blood Negative Urine Nitrite Negative Urine Bilirubin 1+ H Urine Urobilinogen Negative Ur Leukocyte Esterase Trace H Urine WBC (Auto) 0 Urine RBC (Auto) 0-4 U Hyaline Cast (Auto) 0 U Epithel Cells (Auto) 0-5 Urine Bacteria (Auto) Negative 01/20/19 01/20/19 02:23 02:23 WBC RBC Hgb Hct MCV MCH MCHC RDW Std Deviation RDW Coeff of Harish Plt Count MPV Immature Gran % (Auto) Neut % (Auto) Lymph % (Auto) Fillmore % (Auto) Eos % (Auto) Baso % (Auto) Immature Gran # (Auto) Neut # (Auto) Lymph # (Auto) Fillmore # (Auto) Eos # (Auto) Baso # (Auto) Hypersegmented Neuts Anisocytosis Spherocytes Target Cells PT 17.5 H INR 1.8 H APTT 31.9 H PTT Ratio 1.2 Sodium Potassium Chloride Carbon Dioxide Anion Gap BUN Creatinine Est Cr Clr Drug Dosing Est GFR ( Amer) Est GFR (Non-Af Amer) BUN/Creatinine Ratio Glucose Lactate 2.0 Calcium Total Bilirubin AST ALT Alkaline Phosphatase Troponin I Total Protein Albumin Globulin Albumin/Globulin Ratio TSH Free T4 Urine Color Urine Appearance Urine pH Ur Specific Justice Urine Protein Urine Glucose (UA) Urine Ketones Urine Blood Urine Nitrite Urine Bilirubin Urine Urobilinogen Ur Leukocyte Esterase Urine WBC (Auto) Urine RBC (Auto) U Hyaline Cast (Auto) U Epithel Cells (Auto) Urine Bacteria (Auto) Medications Administered Allopurinol (Zyloprim) 100 mg PO QAM [facility] Stop: 02/19/19 08:59 Last Admin: 01/20/19 09:09 Dose: 100 mg Documented by: [id number] Docusate Sodium (Colace) 100 mg PO BID [facility] Stop: 02/19/19 08:59 Last Admin: 01/20/19 09:09 Dose: 100 mg Documented by: [id number] Levothyroxine Sodium (Synthroid) 88 mcg PO DAILYBB [facility] Stop: 02/19/19 06:29 Last Admin: 01/20/19 06:32 Dose: 88 mcg Documented by: [id number] Miscellaneous (Order Awaiting Action) 1 ea N/A QS [facility] Stop: 02/19/19 05:59 Last Admin: 01/20/19 09:08 Dose: Not Given Documented by: [id number] Admin: 01/20/19 06:44 Dose: 1 ea Documented by: [id number] Pantoprazole Sodium (Protonix) 40 mg PO DAILY [facility] Stop: 02/19/19 08:59 Last Admin: 01/20/19 09:09 Dose: 40 mg Documented by: [id number] Polyethylene Glycol (Miralax Powder Packet) 17 gm PO DAILY [facility] Stop: 02/19/19 08:59 Last Admin: 01/20/19 09:10 Dose: 17 gm Documented by: [id number] Vitamin D (Vitamin D3) 2,000 units PO QAM [facility] Stop: 02/19/19 08:59 Last Admin: 01/20/19 09:09 Dose: 2,000 units Documented by: [id number] PG Care Time/CCT Total # of Minutes Spent Total Time Spent with Patient: Total time spent is greater than 50% in coordination of care (as documented) at patient's floor/unit and/or counseling patient: Resident Activity Tracking Resident Involvement: Resident Care Provided Care Provided: Adult Hospital Medicine (1) Leukocytosis Leukocytosis type: unspecified Qualified Code(s): D72.829 - Elevated white blood cell count, unspecified (2) AMS (altered mental status) Altered mental status type: unspecified Qualified Code(s): R41.82 - Altered mental status, unspecified (3) Constipation Constipation type: slow transit constipation Qualified Code(s): K59.01 - Slow transit constipation
--- NOTE | 2019-01-20 08:47 | XRay Report ---
XR chest 1V portable CLINICAL HISTORY: Sepsis. History of lung cancer. COMPARISON STUDY: Chest radiograph and chest CT January 01, 2019. FINDINGS: There is no pneumothorax or pleural effusion. Mild interstitial thickening is noted. The pu lmonary and pleural nodules shown on CT of January 01, 2019 are not visualized on this exam, likely du e to technique. Mild cardiomegaly is noted. IMPRESSION: 1. Pulmonary vascular congestion with suspected mild pulmonary edema. 2. Pulmonary and pleural nodules shown on CT of January 01, 2019 are not well visualized on this exam due to technique. Electronically signed by: Delfin Jones M.D. 01/20/2019 8:45 AM
--- NOTE | 2019-01-20 08:50 | CT Scan Report ---
CT OF THE HEAD WITHOUT CONTRAST CLINICAL HISTORY: Altered mental status. Lung cancer. COMPARISON STUDY: Head CT December 03, 2018. CT DOSE: 537.48 mGy.cm TECHNIQUE: Helical axial images of the head were obtained without IV contrast. Automated exposure con trol was utilized for the study. A dose lowering technique was utilized adhering to the principles o f ALARA. FINDINGS: No acute intracranial hemorrhage, midline shift or mass effect is present. The ventricular system is unremarkable. The basilar cisterns are patent. No extra-axial collections are present. Ther e are no findings to suggest acute dural sinus thrombosis or acute territorial infarct. No significan t calvarial abnormalities are present. Visualized portions of the sinuses and mastoid air cells are c lear. IMPRESSION: No acute intracranial findings. Electronically signed by: Delfin Jones M.D. 01/20/2019 8:48 AM
[2019-01-20] MEDS: CHOLECALCIFEROL 1,000 UNITS TAB PO SCH (09:09)
[2019-01-20] MEDS: DOCUSATE SODIUM 100 MG CAP PO SCH ×2 (09:09→20:42)
[2019-01-20] MEDS: PANTOprazole 40 MG TAB PO SCH (09:09)
[2019-01-20] MEDS: ALLOPURINOL 100 MG TAB PO SCH (09:09)
[2019-01-20] MEDS: POLYETHYLENE (MIRALAX) 17 GM PACK PO SCH (09:10)
[2019-01-20] MEDS ORDERED: HYDROmorphone INJ 0.5 MG/0.5 ML SYR IV STA (12:07)
[2019-01-20] MEDS ORDERED: HYDROmorphone INJ 1 MG/ML SYRINGE IV STA (12:07)
[2019-01-20] MEDS: OXYCODONE HCL IR 5 MG TAB (IMMEDIATE RELEASE) PO PRN ×2 (18:00→22:16)
[2019-01-21] MEDS ORDERED: OXYCODONE HCL IR 5 MG TAB (IMMEDIATE RELEASE) PO STA (01:13)
[2019-01-21] MEDS: LEVOTHYROXINE SODIUM 88 MCG TABLET PO SCH (05:33)
[2019-01-21 06:36] LABS: Basophils # (auto) 0.04 K/uL (0-0.2); Basophils % (auto) 0.2 %; Eosinophils # (auto) 0.23 K/uL (0-0.5); Eosinophils % (auto) 1.3 %; Hematocrit (blood only) 31.2 % (37-47); Hemoglobin 9.6 g/dL (12.0-16.0); Immature Granulocytes # (auto) 0.05 K/uL (0.00-0.02); Immature Granulocytes % (auto) 0.3 %; Lymphocytes # (auto) 1.58 K/uL (1.2-3.4); Lymphocytes % (auto) 9.1 %; Mean Corpuscular Hemoglobin 24.6 pg (25-34); Mean Corpuscular Hgb Conc 30.8 g/dL (32-36); Mean Corpuscular Volume 79.8 fL (80-100); Mean Platelet Volume 9.9 fL (7.4-10.4); Monocytes # (auto) 1.67 K/uL (0.11-0.59); Monocytes % (auto) 9.7 %; Neutrophils # (auto) 13.71 K/uL (1.4-6.5); Neutrophils % (auto) 79.4 %; Platelet Count 280 K/uL (130-400); RDW Coefficient of Variation 20.2 % (11.5-14.5); RDW Standard Deviation 57.7 fL (36.4-46.3); Red Blood Count 3.91 M/uL (4.2-5.4); White Blood Count 17.28 K/uL (4.8-10.8)
[2019-01-21 07:08] LABS: Anisocytosis Present; Hypochromasia Present; Rouleaux 1+
[2019-01-21] MEDS: DOCUSATE SODIUM 100 MG CAP PO SCH ×2 (08:52→20:53)
[2019-01-21] MEDS: CHOLECALCIFEROL 1,000 UNITS TAB PO SCH (08:52)
[2019-01-21] MEDS: ALLOPURINOL 100 MG TAB PO SCH (08:52)
[2019-01-21] MEDS: OXYCODONE HCL IR 5 MG TAB (IMMEDIATE RELEASE) PO PRN ×2 (08:52→23:41)
[2019-01-21] MEDS: PANTOprazole 40 MG TAB PO SCH (08:52)
[2019-01-21] MEDS: POLYETHYLENE (MIRALAX) 17 GM PACK PO SCH (08:53)
[2019-01-21] MEDS ORDERED: PREGABALIN 75 MG CAP PO SCH ×2 (10:30→14:00)
--- NOTE | 2019-01-21 11:41 | Family Medicine Progress Note ---
Date of Service January 21, 2019 Assessment & Plan (1) AMS (altered mental status): 63yoF with hx of metastatic cholangiocarcinoma, HTN, hypothyroidism and depression presents with AMS and hypoxia concerning for narcotic overdose vs. brain metastasis vs. infection vs. stroke. AMS: Myoclonic jerks. No focal neuro deficit. s/p Narcan injection in ED. CT head no acute findings Likely from opiate overuse due to uncontrolled pain. since becoming more alert but there might be underlying cognitive decline. She is unable to provide appropriate answering to questioning. Neuro checks Q4H O2 prn Continue to monitor clinically Hypoxia: likely due to narcotic overuse in the setting of cancer related pain Hx of Emphysema/COPD: CXR no acute findings O2 as needed Continue home albuterol prn Thoracic Back Pain: likely secondary to cholangiocarcinoma vs. bone metastasis Thoracic Spine XR: negative MRI ordered by pain management on 01/19; again requires sedation for MRI will avoid with current acute episode Will reintroduce narcotics as tolerated. consult pain mx on tuesday. Oxycodone 5mg is scheduled QID. Re-started home Lyrica for associated nerve pain. Re-started home qHS Trazadone. Fever One time isolated febrile temperature of 38.0 C at 7:30pm last night with associated tachycardia. Will re-check UA and get urine culture. Monitor vitals. No current signs of infection. Review of Xeloda (Capecitabine) drug information shows Fever as adverse effect 7-18%, but will make sure to rule out source. Leukocytosis - appears to be chronic Improved at 17.28 today down from initial 18.11; there was a value from 01/01/19 of 19.63. Lactate normal U/a was negative on initial workup; again will re-check to make sure not missing underlying source. CXR no acute findings Blood cultures x 2 pending - NGTD Consider abx if clinically worsening/not improving or cultures positive Cholangiocarcinoma: Stage 4 with liver, peritoneal and lung metastasis Progressive despite treatment with several different chemo agents/regimens Followed by Dr. Guy at [facility] in [place] - is due to get staging Continue Xeloda twice daily in a week on/week off cycle - next cycle on Tuesday01/22/19 Her imaging from November 23 as well as December 03 showed progressive disease. MRCP: 12/04/2018: Multifocal hepatic metastatic disease. Retroperitoneal masses along the dorsal pancreas and left adrenal gland, possible conglomerate lymphadenopathy or implants. CTA chest 01/01/2019: enlarging pulmonary and pleural-based nodular densities when compared 11/23/2018 concerning for recurrent/metastatic disease LFTs stable with persistently elevated alkaline phosphatase 236 today Low albumin 1.9, INR 1.8, PT 17,5, PTT 31.9 Pain control: home oxycodone was held on admission in the setting of AMS/concern for narcotic overdose; now more alert, will treat pain appropriately as noted above Nausea: compazine IV PRN Qt prolongation (not new) and EKG changes: Twave inversion in V2-V4 rate 92, NSR Qtc 514 No chest pain negative troponin Continue to monitor for symptoms Constipation: Chronic in the setting of narcotic use KUB on 01/18/19 with moderate stool burden, no BM since 01/16/19 per daughter Miralax and colace arlyn Continue home senokot prn Hypertension/edema: Low BPs during last admission, cortisol test was normal Continue home triamterene/HCTZ prn for LE edema Chronic anemia: stable likely anemia of chronic disease vs. due to chemo/bone marrow suppression Hgb 9.4, baseline 9-10 Continue to monitor Depression/Anxiety/Insomnia: Pt has previously been on nortriptyline and lexapro Re-started home qHS trazodone. But will hold hydroxyzine as it can worsen her mental status. Hypothyroidism: Sick euthyroid TSH 6.3 but free T4 - normal Continue home levothyroxine GERD: Continue home omeprazole Gout: Continue home allopurinol Neuropathy: Re-started home Lyrica as having pain, but do not want to escalate narcotics. FEN: Regular diet DVT: None as liver dysfunction from cancer with INR 1.8 without anti-coagulation - chemical anticoagulated contraindicated Code: DNR/DNI (2) Hypoxia: (3) Chronic obstructive pulmonary disease: (4) Depression: (5) Fatty liver disease, nonalcoholic: (6) Gastroesophageal reflux disease: (7) Gout: (8) Hypercholesterolemia: (9) Hypertension: (10) Hypothyroidism: (11) Constipation: (12) Leukocytosis: (13) Metastatic cancer: (14) Fever: Supervising Physician Co-Signing Physician Notes Resident Physician Supervision Note: I independently interviewed and examined the patient and verified the webster history and physical, reviewed labs and image studies, discussed the case with the resident Dr. Gleason and agree with the findings and care plan. Subjective Caveat: History Limited by - AMS. Yessica has difficulty answering questions. She was alert, but when asked for orientation she would appear as though she is thinking but wouldn't provide answer, even with prompting. This was after AM does of Oxycodone. She did appear comfortable. She doesn't answer to events [employer] to [facility] ED or to place or time. Nursing later, notified that patient was in significant pain approximately a hour after seeing patient. There was no acute events overnight, but there was a documented temp of 38.0 C at 7:30pm last night. Nursing stated that wasn't mentioned in report. There are no acute complaints mentioned about subjective fever or chills or new acute complaints. Physical Exam Constitutional: WD/WN, vitals as above cooperative Eyes: + anicteric sclerae and EOM intact bilaterally Respiratory: normal respiratory effort; no respiratory distress and no labored breathing Auscultation: lungs clear to auscultation bilaterally Cardiovascular: Rate/Rhythm: regular rate and regular rhythm Gastrointestinal (Abdomen): Inspection/Auscultation: abdomen not distended Percussion/Palpation: abdomen soft; abdomen nontender, no guarding and abdomen not rigid Musculoskeletal: Head/Neck/Chest: + head abnormal to inspection, normocephalic and head atraumatic Neurologic: moves all extremities and awake; no focal motor deficits and not confused Speech / Cognition: normal speech Motor/Sensory: no sensory deficit Psychiatric: Orientation: alert and oriented to person; + not oriented to place and + not oriented to time Affect: + flat affect Difficulty answering questions with difficulty providing response to questioning. She was alert for initial questioning, but when asked for orientation she would appear as though she is thinking but wouldn't provide answer, even with prompting; this was same for orientation to time and on questioning about what might have caused her to be admitted. She would appear drowsy and close her eyes, but was easily arousable. This was in setting of after receiving AM oxycodone. Results & Data Vital Signs (Past 12 Hours) Vital Signs Temp Pulse Resp BP Pulse Ox 01/21/19 07:32 36.7 C 106 H 18 150/76 H 91 01/21/19 03:30 36.9 C 83 15 116/74 99 PG Care Time/CCT Total # of Minutes Spent Total Time Spent with Patient: Total time spent is greater than 50% in coordination of care (as documented) at patient's floor/unit and/or counseling patient: (1) Fever Fever type: unspecified Qualified Code(s): R50.9 - Fever, unspecified (2) Leukocytosis Leukocytosis type: unspecified Qualified Code(s): D72.829 - Elevated white blood cell count, unspecified (3) AMS (altered mental status) Altered mental status type: unspecified Qualified Code(s): R41.82 - Altered mental status, unspecified (4) Constipation Constipation type: slow transit constipation Qualified Code(s): K59.01 - Slow transit constipation
--- NOTE | 2019-01-21 15:02 | CT Scan Report ---
CT head/brain wo con CT DOSE: 537.48 mGy.cm HISTORY: Altered mental status TECHNIQUE: Multiaxial CT images of the head were performed without the use of intravenous contrast. A dose lowering technique was utilized adhering to the principles of ALARA. Comparison: None. Findings: The paranasal sinuses and mastoid air cells are clear. The calvarium and skull base are int act. The ventricles and sulci are within normal limits. There is no mass, hematoma, midline shift, or acute infarct. Impression: No acute intracranial abnormality. The above report was generated using voice recognition software. It may contain grammatical, syntax or spelling errors. Electronically signed by: Chance Torres M.D. 01/21/2019 3:01 PM
[2019-01-21] MEDS ORDERED: VANCOMYCIN CONSULT ACTIVE PRN (15:29)
[2019-01-21] MEDS ORDERED: VANCOMYCIN HCL 1,000 MG in SODIUM CHLORIDE 0.9% 250 ML IV SCH (15:30)
[2019-01-21 15:34] LABS: Lyme Ab IgG w/WB Rflx Negative (Negative); Lyme Ab IgM w/WB Rflx Negative (Negative)
[2019-01-21] MEDS ORDERED: VANCOMYCIN HCL 2,000 MG in SODIUM CHLORIDE 0.9% 500 ML IV SCH (15:45)
--- NOTE | 2019-01-21 15:58 | Pharmacy Report ---
Pharmacy Abx Initial Consult - Date of Service January 21, 2019 - Pharmacy Dosing Scope Date of Consult: 01/21/19 Consultation requested by: Dr. Gleason Pharmacy is consulted to initiate Vancomycin IV dosing therapy, order appropriate labs and adjust drug dose/frequency. - Subjective The patient is a 63 year old F admitted on 01/20/19 04:32. - Objective Height: 5 ft 6 in Weight: 81 kg Vital Signs (Past 12hrs): Vital Signs Temp Pulse Resp BP BP Pulse Ox 01/21/19 11:43 36.7 C 106 H 18 143/84 H 93 01/21/19 07:32 36.7 C 106 H 18 150/76 H 91 Lab Results (24hrs): Laboratory Tests (24 Hours) 01/21/19 06:20 WBC 17.28 H Neut # (Auto) 13.71 H Micro Results: Microbiology 01/20/19 02:23 Blood Aerobic Blood Culture - Preliminary 01/20/19 02:23 Blood Anaerobic Blood Culture - Preliminary No growth in Aerobic bottle after 24 hours. No growth in Anaerobic bottle after 24 hours. 01/20/19 01:11 Blood Aerobic Blood Culture - Preliminary 01/20/19 01:11 Blood Anaerobic Blood Culture - Preliminary No growth in Aerobic bottle after 24 hours. No growth in Anaerobic bottle after 24 hours. - Risk Factors for Resistance * Hospitalization for 48 hours or more within the past 90 days * Immunocompromised (chemotherapy) * Antimicrobial use within the last 90 days - Assessment & Plan Assessment 63 year old F admitted on 01/20/19 for AMS - PMHx significant for Lung CA s/p lobectomy, metastatic cholangiocarcinoma currently on Xeloda - AMS suspected to be secondary to narcotic overdose given cancer pain but patient was febrile to 38 degrees Celsius last evening and presents with leukocytosis (18,100 --> 17,300) - Lactic acid yesterday was 2.0, renal function is at baseline Plan Vancomycin and Rocephin for empiric treatment of meningitis Vancomycin IV * Estimated PK Parameters: Vd 0.6 L/kg, Parrish 0.077 hr-1, t1/2 9 hrs * Loading dose: 2000 mg (25 mg/kg) * Maintenance dose: 1500 mg IV (19 mg/kg) every 12 hours * Goal trough level for meningitis is as close to 20 mcg/mL as possible * Trough level ordered for 01/23/19 prior to the 0400 dose * Vancomycin is ordered empirically so it will discontinue after 48 hrs of therapy Ceftriaxone IV * 2 g IV every 12 hours * Ceftriaxone is ordered empirically so it will discontinue after 48 hrs of therapy Pharmacy will continue to follow and will adjust dose/frequency as necessary. Thank you.
--- NOTE | 2019-01-21 17:34 | XRay Report ---
XR chest 1V portable CLINICAL HISTORY: AMS; lung mets; look for pneumonia; fever COMPARISON STUDY: 01/20/2019 FINDINGS: Mild cardiomegaly. Potential minimal minimal infiltrative process left base. Lungs otherwis e appear clear. IMPRESSION: Minimal parenchymal infiltrate left base. Mild stable cardiomegaly. The above report was generated using voice recognition software. It may contain grammatical, syntax or spelling errors. Electronically signed by: Chance Torres M.D. 01/21/2019 5:33 PM
--- NOTE | 2019-01-21 17:48 | Fluoroscopy Report ---
FL lumbar puncture diagnostic CLINICAL HISTORY: AMS; Fever; cancer patient FLUOROSCOPY TIME: 40 seconds PROCEDURE: The procedure, risks and benefits were discussed with the patient including the risk of s tram headache, bleeding and infection. The patient agreed to the procedure and informed written cons ent was obtained. The procedure was performed by Dr. Torres following a timeout. The left L2-L3 inter laminar space was targeted. Skin overlying the space was prepped and draped in the usual sterile fash ion and local anesthesia was achieved with 1% lidocaine. Under intermittent fluoroscopic guidance, a 20-gauge x 3 1/2 in. Sprotte needle was inserted into the thecal sac. A total of 6cc of clear, colorl ess cerebral spinal fluid was obtained and spread amongst 4 vials. The patient tolerated the procedur e well. There were no immediate complications. The specimens were sent to the laboratory at the [facility] st of the referring physician. IMPRESSION: Successful fluoroscopic guided lumbar puncture with removal of 6 cc of clear, colorless c erebral spinal fluid. No immediate complications. The above report was generated using voice recognition software. It may contain grammatical, syntax or spelling errors. Electronically signed by: Chance Torres M.D. 01/21/2019 5:47 PM
[2019-01-21 17:49] LABS: Total Protein CSF 32.4 mg/dl (15-45)
[2019-01-21 17:52] LABS: Appearance CSF Clear; CSF Count Tube # 2; CSF Xanthrochromic No xanthochromia; Color CSF Colorless; Red Blood Cell CSF (A) 600 /uL (0-); Red Blood Cell CSF (B) 600 /uL (0-); White Blood Cell CSF (A) 3 /uL (0-5); White Blood Cell CSF (B) 2 /uL (0-5)
[2019-01-21] MEDS: cefTRIAXone SODIUM 2,000 MG in DEXTROSE 5% 50 ML IV SCH (17:57)
[2019-01-21 18:41] LABS: Appearance Urine Clear (Clear); Bacteria Urine Automated Negative (Negative); Blood Urine Negative (Negative); Cast Urine Automated 0 /lpf (0-5); Color Urine Dark Yellow; Epithelial Cell Urine Auto >30 /lpf (0-5); Glucose Urine UA Negative (Negative); Ketones Urine Trace (Negative); Leukocyte Esterase Urine Trace (Negative); Nitrite Urine Negative (Negative); Protein Urine 1+ (Negative); RBC Urine Automated 0-4 /hpf (0-4); Specific Gravity Urine 1.021 (1.000-1.030); Urobilinogen Urine Negative (Negative); pH Urine 6.5 (4.5-7.5)
[2019-01-21 19:10] LABS: Bilirubin Urine 1+ (Negative)
[2019-01-21 19:12] LABS: Ictotest Urine Positive (Negative)
[2019-01-21] MEDS: TRAZODONE HCL 100 MG TAB PO SCH (20:52)
[2019-01-21] MEDS: PREGABALIN 75 MG CAP PO SCH (20:52)
[2019-01-22] MEDS ORDERED: VANCOMYCIN HCL 1,500 MG in SODIUM CHLORIDE 0.9% 500 ML IV SCH (04:00)
[2019-01-22] MEDS: LEVOTHYROXINE SODIUM 88 MCG TABLET PO SCH (05:37)
[2019-01-22] MEDS: cefTRIAXone SODIUM 2,000 MG in DEXTROSE 5% 50 ML IV SCH ×2 (05:42→17:48)
[2019-01-22] MEDS: OXYCODONE HCL IR 5 MG TAB (IMMEDIATE RELEASE) PO PRN ×2 (05:50→11:43)
[2019-01-22] MEDS: VANCOMYCIN HCL 1,500 MG in SODIUM CHLORIDE 0.9% 500 ML IV SCH ×2 (06:21→19:25)
[2019-01-22 07:32] LABS: Basophils # (auto) 0.03 K/uL (0-0.2); Basophils % (auto) 0.1 %; Eosinophils # (auto) 0.12 K/uL (0-0.5); Eosinophils % (auto) 0.6 %; Hematocrit (blood only) 29.8 % (37-47); Hemoglobin 9.4 g/dL (12.0-16.0); Immature Granulocytes # (auto) 0.08 K/uL (0.00-0.02); Immature Granulocytes % (auto) 0.4 %; Lymphocytes % (auto) 8.7 %; Mean Corpuscular Hemoglobin 24.3 pg (25-34); Mean Corpuscular Hgb Conc 31.5 g/dL (32-36); Mean Platelet Volume 9.8 fL (7.4-10.4); Monocytes # (auto) 2.02 K/uL (0.11-0.59); Monocytes % (auto) 9.8 %; Neutrophils # (auto) 16.64 K/uL (1.4-6.5); Neutrophils % (auto) 80.4 %; Platelet Count 279 K/uL (130-400); RDW Coefficient of Variation 20.1 % (11.5-14.5); RDW Standard Deviation 56.8 fL (36.4-46.3); Red Blood Count 3.87 M/uL (4.2-5.4); White Blood Count 20.69 K/uL (4.8-10.8)
[2019-01-22 07:53] LABS: Albumin Level 1.8 gm/dl (3.4-5.0); BUN Creatinine Ratio 17.5 (10-20); Calcium 8.4 mg/dl (8.5-10.1); Creatinine Clr Calc Pharmacy 125.8 ml/min; Est GFR (African American) 119.3; Est GFR (Non-African American) 102.9; Potassium 3.5 mmol/L (3.5-5.1)
[2019-01-22 07:55] LABS: Albumin Globulin Ratio 0.3 (0.9-2); Bilirubin,Total 0.8 mg/dl (0.2-1); Globulin 5.2 gm/dl (2.5-4.0)
[2019-01-22 08:01] LABS: Anisocytosis Present; Hypochromasia Present; Microcytosis Present
[2019-01-22] MEDS: CAPECITABINE PO SCH (08:15)
[2019-01-22] MEDS: ALLOPURINOL 100 MG TAB PO SCH (08:17)
[2019-01-22] MEDS: PANTOprazole 40 MG TAB PO SCH (08:17)
[2019-01-22] MEDS: DOCUSATE SODIUM 100 MG CAP PO SCH ×2 (08:18→21:08)
[2019-01-22] MEDS: POLYETHYLENE (MIRALAX) 17 GM PACK PO SCH (08:18)
[2019-01-22] MEDS: CHOLECALCIFEROL 1,000 UNITS TAB PO SCH (08:18)
[2019-01-22] MEDS: PREGABALIN 75 MG CAP PO SCH ×3 (08:54→21:08)
--- NOTE | 2019-01-22 14:56 | Palliative Care Consultation ---
Date of Consultation January 22, 2019 Assessment & Plan (1) Goals of care, counseling/discussion: -63 year old female patient with PMH metastatic cholangiocarcinoma, HTN, hypothyroidism, COPD, and depression presented two days ago with altered mental status. Concern for stroke vs. narcotic use vs. brain mets vs. infectious process. Patient was in ED on 01/18 for new onset lower back pain in the thoracic region. Patient has known metastatic disease to the liver, abdomen and lung. She was given 2 doses of 1mg Dilaudid IM and sent home. She followed up with pain management the next day on 01/19. Patient has been seen by pain management in the past for celiac plexus nerve block for her chest pain-- this thoracic pain is new and different than previous. Patient was ordered to continue her Oxycodone 10mg PO Q4-6h PRN and to start Cymbalta. NABIL from pain management also ordered xray and MRI of spine to assess for origin of this pain. Unfortunately patient started experiencing altered mental status and came back to the ED on 01/20. CT head negative. LP performed, results pending. Patient is currently under the treatment of Dr. Guy and [facility] in [place] for her cancer-- she is taking Xeloda. Was to restart Xeloda today, but of course she is in the hospital. Patient apparently has been declining at home. Palliative care consulted. -Met with patient and her friend Rafaela in room 259. Patient is awake and oriented, but seems distant or almost blunted affect. Patient gave permission to discuss with Rafaela. -Rafaela is one of patient's close friends. She and the patient's daughter take care of her for the most part. Patient does live home alone, but is alone pretty infrequently. Rafaela states patient was "doing great with the chemo pills" before this pain issue started. Rafaela states that patient's pain has been so out of control that patient was not sleeping much at all. When patient finally came to ED and had 2mg Dilaudid, Rafaela states it was "too much" and made patient drowsy with altered mental status. -Patient states her goal is to continue chemo and continue living at home with the help of her daughter and friend Rafaela. -Would recommend obtaining the spine MRI once able, as it was ordered as an outpatient to assess this new pain. -Pain management saw patient on 01/19 and ordered Cymbalta-- patient is on Lyrica and family wanted to know if she should continue both. I'm assuming she was to be taking both of these medications. -Patient states the oxycodone is effective when she takes it, takes the pain to a 4/10 instead of 8/10. -Order PT/OT when appropriate to assess patient's ability to return home safely. -Palliative care will continue to follow for supportive care. (2) AMS (altered mental status): Altered mental status type: unspecified Qualified Code(s): R41.82 - Altered mental status, unspecified (3) Low back pain: Back pain laterality: unspecified Chronicity: acute Sciatica presence: without sciatica Qualified Code(s): M54.5 - Low back pain (4) Carcinoma of lung: Supervising Physician Co-Signing Physician Notes Chart reviewed, patient seen and examined, patient's daughter at bedside. Collaborated with LETY Osorio Patient dosing, appears comfortable, did arouse during visit. HEENT: EOMI, hearing within normal limits Respirations: Unlabored CV: Tachycardic Abdomen: Soft Neuro: Drowsy Agree with above note, assessment and plan as per LETY Osorio Will continue to follow and assist patient and family and medical decision making. History of Present Illness Attending Physician: Bakari Perkins DO History of Present Illness This 63 year old female patient with PMH metastatic cholangiocarcinoma, HTN, hypothyroidism, COPD, and depression presented two days ago with altered mental status. Concern for stroke vs. narcotic use vs. brain mets vs. infectious process. Patient was in ED on 01/18 for new onset lower back pain in the thoracic region. Patient has known metastatic disease to the liver, abdomen and lung. She was given 2 doses of 1mg Dilaudid IM and sent home. She followed up with pain management the next day on 01/19. Patient has been seen by pain management in the past for celiac plexus nerve block for her chest pain-- this thoracic pain is new and different than previous. Patient was ordered to continue her Oxycodone 10mg PO Q4-6h PRN and to start Cymbalta. NABIL from pain management also ordered xray and MRI of spine to assess for origin of this pain. Unfortunately patient started experiencing altered mental status and came back to the ED on 01/20. CT head negative. LP performed, results pending. Patient is currently under the treatment of Dr. Guy and [facility] in [place] for her cancer-- she is taking Xeloda. Was to restart Xeloda today, but of course she is in the hospital. Patient apparently has been declining at home. Palliative care consulted. Thank you kindly for this consult. Palliative care team will follow as needed. Allergies Allergy/AdvReac Type Severity Reaction Status Date / Time metoclopramide Allergy Intermediate FACIAL AND Verified 01/20/19 01:47 FEET SWELLING, BONE PAIN silicone Allergy Intermediate SKIN MIRANDA Verified 01/20/19 01:47 celecoxib Allergy Mild RASH Verified 01/20/19 01:47 valsartan Allergy Unknown Verified 01/20/19 01:47 fentanyl AdvReac Severe Arm Unverified 01/20/19 01:47 Numbness atorvastatin AdvReac Intermediate headaches Verified 01/20/19 01:47 acetaminophen [From Tylenol] AdvReac Mild Liver Unverified 01/20/19 01:47 Issues Home Medications Home Medications Medication Instructions Recorded Confirmed Type prochlorperazine maleate 10 mg PO Q6H PRN 09/09/18 01/20/19 History albuterol sulfate HFA 90 2 puff INHALATION Q4H PRN gm 11/30/18 01/20/19 History mcg/actuation aerosol inhaler cholecalciferol (vitamin D3) 1,000 2,000 units PO QAM cap 11/30/18 01/20/19 History unit capsule hydroxyzine pamoate [Vistaril] 25 mg PO HS 7 Days #7 cap 01/01/19 01/20/19 Rx oxycodone 5 - 10 mg PO Q4H PRN 01/01/19 01/20/19 History polyethylene glycol 3350 [Miralax] 17 g PO DAILY PRN 01/01/19 01/20/19 History allopurinol 100 mg PO QAM 01/18/19 01/20/19 History levothyroxine 88 mcg PO QAM 01/18/19 01/20/19 History sennosides [Senokot] 17.2 mg PO QAM PRN 01/18/19 01/20/19 History Capecitaline 1,500 mg PO DIRECTED 01/20/19 01/20/19 History omeprazole 20 mg PO DAILY 01/20/19 01/20/19 History pregabalin [Lyrica] 75 mg PO TID 01/20/19 01/20/19 History trazodone 100 mg PO HS 01/20/19 01/20/19 History triamterene-hydrochlorothiazid 1 tab PO DAILY PRN 01/20/19 01/20/19 History Patient History Medical History Severe sepsis (Acute) Lung cancer (Chronic) s/p left lower lobectomy Neuropathy (Chronic) [place] feet Asthma (Chronic) Chronic obstructive pulmonary disease (Chronic) never uses inhaler Gout (Chronic) Hypothyroid (Chronic) Hypertension (Chronic) Hyperlipidemia (Chronic) GERD (gastroesophageal reflux disease) (Chronic) Hiatal hernia (Chronic) Anxiety (Chronic) Depression (Chronic) Borderline diabetes mellitus (Chronic) Fatty liver Osteoarthritis (Chronic) Cholangiocarcinoma (Chronic) diagnosed 2018 - followed by [facility] Encounter for pre-operative examination (Resolved) Port-A-Cath in place Surgical History History of lobectomy of lung (Chronic) left lower lobe. [facility] 05/04/17. MAC 3, ETT 7.5, no issues noted in anesthesia record. H/O exploratory laparotomy (Resolved) for abdominal pain, found hiatal hernia History of arthroscopy of right knee (Resolved) History of cataract surgery (Resolved) History of section (Resolved) History of colonoscopy (Resolved) History of esophagogastroduodenoscopy (EGD) (Resolved) History of laminectomy (Resolved) History of surgery (Resolved) removal of "eccrine" gland History of total abdominal hysterectomy and bilateral salpingo-oophorectomy (Resolved) Hx of cholecystectomy (Resolved) History of laparoscopy 05/2018 [facility] - lymph node biopsy, liver biopsy Family History Brother Family history of lung cancer Sister Family history of lung cancer sister Family history of kidney cancer Family history of skin cancer Family history of breast cancer Family history of uterine cancer Family history of ovarian cancer Mother , age 89 "old age" No problems noted. 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 [employer] Feels Safe at Home: Yes Smoking Status: Former smoker Tobacco Type: cigarettes ; Cigarettes Per Day: QUIT 15 YR AGO, PREVIOUS 1/2 PPD X 25 YR ; Second Hand Exposure: No ; Hx Alcohol Use: No Hx Substance Use: No Review of Systems Constitutional: + weakness Ear, Nose, Mouth, Throat: no dysphagia Respiratory: no cough and no dyspnea Cardiovascular: no chest pain Gastrointestinal: no abdominal pain and no nausea Musculoskeletal: + back pain (4-8/10 in thoracic/lower back area) Neurologic: + confusion (reported by patients friend Rafaela) Psychiatric: no anxiety Physical Exam Constitutional: no acute distress ENMT: external ear and nose normal, oropharynx normal Neck: normal visual inspection Respiratory: normal respiratory effort, lungs clear to auscultation Auscultation: + diminished lung sounds Cardiovascular: Rate/Rhythm: regular rate and regular rhythm Extremities: + edema (+2 BLE) Gastrointestinal (Abdomen): Inspection/Auscultation: normal bowel sounds Percussion/Palpation: abdomen soft; abdomen nontender Skin: no rashes, warm and dry Neurologic: moves all extremities and awake Psychiatric: Orientation: oriented x 3 Affect: + blunted affect Insight: + limited insight Results & Data Vital Signs (Past 12 Hours) Vital Signs Temp Pulse Pulse Pulse Resp BP Pulse Ox 01/22/19 11:33 36.7 C 93 H 18 122/79 94 01/22/19 11:22 99 H 01/22/19 07:30 37.5 C 93 H 18 L 128/75 94 01/22/19 03:39 37.0 C 100 H 18 138/78 91 Time Spent Midlevel 50 minutes with >50% of the time spent at bedside with patient and family discussing condition and GOC. Attending Spent 20 minutes in addition to the 50 minutes spent by LETY Espinal for a total of 70 minutes with greater than 50% of the time spent at bedside discussing patient's current condition and goals of care
--- NOTE | 2019-01-22 19:40 | Family Medicine Progress Note ---
Date of Service January 22, 2019 Assessment & Plan (1) AMS (altered mental status): 63yoF with hx of metastatic cholangiocarcinoma, HTN, hypothyroidism and depression presents with AMS and hypoxia concerning for narcotic overdose vs. brain metastasis vs. infection vs. stroke. AMS: Continues to have no focal neuro deficits. CT head no acute findings Family believes this is from opiate overuse due to uncontrolled pain. since becoming more alert but there might be underlying cognitive decline. She is unable to provide appropriate answering to questioning. LP yesterday showing elevated erythrocyte despite non traumatic tap PRevious CT showing no evidence of any obvious bleeding Concerned this could represent new brain metastatic disease Will check MRI this evening Differential includes delirium secondary to hospitalization and medication, and possibly severe depression Continue to monitor clinically Hypoxia: Resolved Hx of Emphysema/COPD: CXR no acute findings O2 as needed Continue home albuterol prn Thoracic Back Pain: No pain reported during my exam today, no bony tenderness likely secondary to cholangiocarcinoma vs. bone metastasis Thoracic Spine XR: negative MRI ordered by pain management on 01/19; again requires sedation for MRI will avoid with current acute episode Will reintroduce narcotics as tolerated. Oxycodone 5mg is scheduled QID. Re- started home Lyrica for associated nerve pain. Re-started home qHS Trazadone. Fever One time febrile temperature of 38.0 C at 7:30pm 01/20 night with associated tachycardia. Will re-check UA and get urine culture. Monitor vitals. No current signs of infection. Review of Xeloda (Capecitabine) drug information shows Fever as adverse effect 7-18%, but will make sure to rule out infectious source. Leukocytosis Appears to be chronic Improved at 17.28 today down from initial 18.11; there was a value from 01/01/19 of 19.63. Lactate normal U/a was negative on initial workup; again will re-check to make sure not missing underlying source. CXR no acute findings Blood cultures x 2 - NGTD CSF cultures pending Will continue abx until CSF cultures resulted Cholangiocarcinoma: Stage 4 with liver, peritoneal and lung metastasis Progressive despite treatment with several different chemo agents/regimens Followed by Dr. Guy at [facility] in [place] - is due to get staging Continue Xeloda twice daily in a week on/week off cycle - next cycle on Tuesday01/22/19 Her imaging from November 23 as well as December 03 showed progressive disease. MRCP: 12/04/2018: Multifocal hepatic metastatic disease. Retroperitoneal masses along the dorsal pancreas and left adrenal gland, possible conglomerate lymphadenopathy or implants. CTA chest 01/01/2019: enlarging pulmonary and pleural-based nodular densities when compared 11/23/2018 concerning for recurrent/metastatic disease LFTs stable with persistently elevated alkaline phosphatase 236 today Low albumin 1.9, INR 1.8, PT 17,5, PTT 31.9 Pain control: home oxycodone was held on admission in the setting of AMS/concern for narcotic overdose; now more alert, will treat pain appropriately as noted above Nausea: compazine IV PRN Qt prolongation (not new) and EKG changes: Twave inversion in V2-V4 rate 92, NSR Qtc 514 No chest pain negative troponin Continue to monitor for symptoms Constipation: Chronic in the setting of narcotic use KUB on 01/18/19 with moderate stool burden, no BM since 01/16/19 per daughter Miralax and colace arlyn Continue home senokot prn Hypertension/edema: Low BPs during last admission, cortisol test was normal Continue home triamterene/HCTZ prn for LE edema Chronic anemia: stable likely anemia of chronic disease vs. due to chemo/bone marrow suppression Hgb 9.4, baseline 9-10 Continue to monitor Depression/Anxiety/Insomnia: Pt has previously been on nortriptyline and lexapro Re-started home qHS trazodone. But will hold hydroxyzine as it can worsen her mental status. Psychomotor retardation could be secondary to severe depression, if unable to find other cause may consider further workup Hypothyroidism: Sick euthyroid TSH 6.3 but free T4 - normal Continue home levothyroxine GERD: Continue home omeprazole Gout: Continue home allopurinol Neuropathy: Re-started home Lyrica as having pain, but do not want to escalate narcotics. FEN: Regular diet DVT: None as liver dysfunction from cancer with INR 1.8 without anti-coagulation - chemical anticoagulated contraindicated Code: DNR/DNI (2) Hypoxia: (3) Chronic obstructive pulmonary disease: (4) Depression: (5) Fatty liver disease, nonalcoholic: (6) Gastroesophageal reflux disease: (7) Gout: (8) Hypercholesterolemia: (9) Hypertension: (10) Hypothyroidism: (11) Constipation: (12) Leukocytosis: (13) Metastatic cancer: (14) Fever: Supervising Physician Co-Signing Physician Notes I personally examined the patient and verified all webster points of history and exam, discussed case, and agree with decision making with Dr Pat. no meaningful HPI or ROS. extensive discussions with family. updated on all working dx's and plans vitals noted nad resting comfortably breathing unlabored no pallor or icterus no notable focal neuro deficits at rest delirium / encephalopathy of probable multifactorial etiologies -definite factors: pain/lack of sleep/medication effect (morphine) -concerning: ?brain mets - MRI brain ordered -possible: ?infectious (nothing focal on exam or workup, but has leukocytosis (albeit chronic) along with temps (that could be malignancy related) and elevated inflammatory markers (that could be malignancy related as well) -- continue empiric antibiotics, serial exams, focused workup, follow cultures -likely will need some type of SNF level care after discharge since delirium likely to take a while to lift otherwise as above Subjective Patient is sitting up eating breakfast, very slow purposeful movement and speech. She is able to carry on conversation though her words are expressed quite haltingly and slowly. Appears to have full understanding of everything I say and expresses herself adequately. She is oriented to person and situation only not aware of place or time. When asked she says that it is 1980. She denies any pain of any kind, denied any abdominal pain, nausea vomiting or diarrhea. Patient denies any chest pain difficulty breathing or any other concerning symptoms Review of Systems Review of Systems: All systems reviewed & are unremarkable except as noted in HPI & below Physical Exam Physical Exam: Constitutional: Clearly altered 63-year-old woman with psychomotor retardation Eyes: Anicteric sclerae extraocular muscle movements intact bilaterally, pupils equal round reactive to light bilaterally ENMT: No unrealized detected Neck: Supple no masses Respiratory: Chest expansion symmetric, breath sounds vesicular in all lung bryant, no wheezes rhonchi or rales Cardiovascular: Heart sounds dual, regular rate regular rhythm, no murmurs rubs skips or gallops, no peripheral edema Skin: Warm dry and intact Neuro: Cranial layers 2 through 12 examined normally, myoclonic jerks not present currently, reflexes normal, no focal weakness though patient does appear globally weak Results & Data Vital Signs (Past 12 Hours) Vital Signs Temp Pulse Pulse Pulse Resp BP Pulse Ox 01/22/19 07:30 37.5 C 93 H 18 L 128/75 94 01/22/19 03:39 37.0 C 100 H 18 138/78 91 01/21/19 23:42 37.1 C 92 H 18 163/89 H 92 01/21/19 23:08 98 H PG Care Time/CCT Total # of Minutes Spent Total Time Spent with Patient: Total time spent is greater than 50% in coordination of care (as documented) at patient's floor/unit and/or counseling patient: Resident Activity Tracking Resident Involvement: Resident Care Provided Care Provided: Adult Hospital Medicine (1) Fever Fever type: unspecified Qualified Code(s): R50.9 - Fever, unspecified (2) Leukocytosis Leukocytosis type: unspecified Qualified Code(s): D72.829 - Elevated white blood cell count, unspecified (3) AMS (altered mental status) Altered mental status type: unspecified Qualified Code(s): R41.82 - Altered mental status, unspecified (4) Constipation Constipation type: slow transit constipation Qualified Code(s): K59.01 - Slow transit constipation
[2019-01-22] MEDS: TRAZODONE HCL 100 MG TAB PO SCH (21:15)
[2019-01-22] MEDS ORDERED: LORazepam 1 MG/2 ML VIAL IV STA (22:25)
[2019-01-22] MEDS ORDERED: GADOBUTROL 65ML VIAL IV PRN (23:53)
[2019-01-23] MEDS ORDERED: VANCOMYCIN TROUGH SCH ×2 (03:30→06:30)
[2019-01-23] MEDS: POLYETHYLENE (MIRALAX) 17 GM PACK PO SCH ×6 (05:30→22:18)
[2019-01-23] MEDS: cefTRIAXone SODIUM 2,000 MG in DEXTROSE 5% 50 ML IV SCH ×2 (06:31→18:57)
[2019-01-23] MEDS: LEVOTHYROXINE SODIUM 88 MCG TABLET PO SCH (06:36)
[2019-01-23 06:42] LABS: Basophils # (auto) 0.04 K/uL (0-0.2); Basophils % (auto) 0.2 %; Eosinophils # (auto) 0.15 K/uL (0-0.5); Eosinophils % (auto) 0.8 %; Hematocrit (blood only) 28.9 % (37-47); Hemoglobin 9.3 g/dL (12.0-16.0); Immature Granulocytes # (auto) 0.07 K/uL (0.00-0.02); Immature Granulocytes % (auto) 0.4 %; Lymphocytes # (auto) 1.98 K/uL (1.2-3.4); Mean Corpuscular Hemoglobin 24.4 pg (25-34); Mean Corpuscular Hgb Conc 32.2 g/dL (32-36); Mean Corpuscular Volume 75.9 fL (80-100); Mean Platelet Volume 10.2 fL (7.4-10.4); Monocytes # (auto) 2.05 K/uL (0.11-0.59); Monocytes % (auto) 10.4 %; Neutrophils # (auto) 15.51 K/uL (1.4-6.5); Neutrophils % (auto) 78.2 %; Platelet Count 302 K/uL (130-400); RDW Coefficient of Variation 20.2 % (11.5-14.5); RDW Standard Deviation 55.5 fL (36.4-46.3); Red Blood Count 3.81 M/uL (4.2-5.4)
[2019-01-23 07:08] LABS: Anisocytosis Present; Hypochromasia Present; Polychromasia 1+; Rouleaux 1+
--- NOTE | 2019-01-23 07:11 | Magnetic Resonance Report ---
MRI OF THE BRAIN WITHOUT AND WITH IV CONTRAST CLINICAL HISTORY: Concern for brain metastases. Altered mental status. COMPARISON STUDY: Head CT January 21, 2019. TECHNIQUE: Utilizing a 1.5 Leanna magnet and dedicated coil, multiplanar, multiecho imaging of the br ain was performed pre and postcontrast administration. IV administration of 8 mL of Gadavist contras t was uneventful. FINDINGS: This exam is compromised by motion artifact. Note is made of a 5 mm hyperintense focus with in the left frontoparietal region on axial image 15 of 44 of the diffusion-weighted sequence. This is hyperintense on the ADC map and therefore reflects T2 shine through. No associated enhancement is pr esent. There is no intracranial mass or pathologic enhancement. Basilar cisterns are patent. There ar e no extra-axial collections. Flow-voids for the major intracranial vessels are present. Calvarial si gnal is unremarkable. Orbits are unremarkable on this nondedicated exam. IMPRESSION: 1. No acute intracranial findings. 2. 5 mm T2 hyperintense focus within the left frontoparietal region suggestive of an old lacunar infa rct. 3. No intracranial mass or pathologic enhancement. 4. Exam mildly compromised by motion artifact. Electronically signed by: Delfin Jonse M.D. 01/23/2019 7:10 AM
[2019-01-23 07:12] LABS: BUN Creatinine Ratio 13.9 (10-20); Calcium 8.3 mg/dl (8.5-10.1); Creatinine Clr Calc Pharmacy 100.1 ml/min; Est GFR (African American) 110.9; Est GFR (Non-African American) 95.7; Potassium 3.3 mmol/L (3.5-5.1)
[2019-01-23] MEDS: VANCOMYCIN HCL 1,500 MG in SODIUM CHLORIDE 0.9% 500 ML IV SCH ×2 (08:20→19:35)
[2019-01-23] MEDS: PREGABALIN 75 MG CAP PO SCH ×3 (08:20→21:18)
[2019-01-23] MEDS: CHOLECALCIFEROL 1,000 UNITS TAB PO SCH (08:21)
[2019-01-23] MEDS: DOCUSATE SODIUM 100 MG CAP PO SCH ×2 (08:21→21:18)
[2019-01-23] MEDS: ALLOPURINOL 100 MG TAB PO SCH (08:21)
[2019-01-23] MEDS: PANTOprazole 40 MG TAB PO SCH (08:36)
[2019-01-23] MEDS ORDERED: BISACODYL 10 MG SUPP PR STA (13:16)
--- NOTE | 2019-01-23 13:57 | Palliative Care Progress Note ---
Date of Service January 23, 2019 Assessment & Plan (1) Goals of care, counseling/discussion: -MRI brain completed last evening with no evidence of metastatic disease, but did show old lacunar infarct. -Her mental status is better than on admission. She is oriented x4. Still drowsy at times and was closing her eyes during my visit. -Patient's plan is to go to rehab on discharge, uncertain where. Case management is following. -Patient's oncologist is currently prescribing her pain medication and it seems to be adequate. Although prior to coming in, patient's pain was apparently out of control in her lower back. This back pain is new. If patient's pain continues to be an issue, can follow up with Dr. Carvalho in palliative care clinic upon discharge. -Palliative care will follow peripherally for now. (2) AMS (altered mental status): (3) Low back pain: (4) Carcinoma of lung: Subjective Patient sitting at edge of bed this morning during my visit. There was a family member present when I entered, but she left. When asked how her pain was, patient said, "much better," but still rated her pain in her back at 7/10. Patient then said her pain is only a 7/10 when she is lying on left side. Currently it is "okay." Patient was upset that the nurses are "keeping her in bed." Review of Systems Review of Systems: + weakness no dysphagia no cough and no dyspnea no chest pain no abdominal pain and no nausea + back pain (7/10 in thoracic/lower back area) + confusion (reported by patients friend Rafaela) no anxiety Physical Exam Constitutional: no acute distress ENMT: external ear and nose normal, oropharynx normal Neck: normal visual inspection Respiratory: normal respiratory effort, lungs clear to auscultation Auscultation: + diminished lung sounds Cardiovascular: Rate/Rhythm: regular rate and regular rhythm Extremities: + edema (+2 BLE) Gastrointestinal (Abdomen): Inspection/Auscultation: normal bowel sounds Percussion/Palpation: abdomen soft; abdomen nontender Skin: no rashes, warm and dry Neurologic: moves all extremities and awake Psychiatric: Orientation: oriented x 3 Affect: + blunted affect Insight: + limited insight Results & Data Vital Signs (Past 12 Hours) Vital Signs Temp Pulse Pulse Resp BP Pulse Ox 01/23/19 11:30 36.6 C 87 18 147/78 H 94 01/23/19 07:31 110 H 01/23/19 06:54 36.7 C 101 H 19 121/78 95 01/23/19 04:49 37.3 C 84 20 123/79 92 Time Spent Midlevel 25 minutes with >50% of the time spent at bedside with patient discussing plan of care and pain medication. (1) AMS (altered mental status) Altered mental status type: unspecified Qualified Code(s): R41.82 - Altered mental status, unspecified (2) Low back pain Back pain laterality: unspecified Chronicity: acute Sciatica presence: without sciatica Qualified Code(s): M54.5 - Low back pain
[2019-01-23] MEDS ORDERED: SOD PHOSPHATE/SOD BIPHOSPHATE ENEMA 132 ML BTL PR STA (15:40)
--- NOTE | 2019-01-23 15:45 | Pharmacy Report ---
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 Thank you.
--- NOTE | 2019-01-23 19:11 | Family Medicine Progress Note ---
Date of Service January 23, 2019 Assessment & Plan (1) AMS (altered mental status): 63yoF with hx of metastatic cholangiocarcinoma, HTN, hypothyroidism and depression presents with AMS and hypoxia concerning for narcotic overdose vs. brain metastasis vs. infection vs. stroke. AMS: Continues to have no focal neuro deficits. CT head no acute findings Family believes this is from opiate overuse due to uncontrolled pain. since becoming more alert but there might be underlying cognitive decline. She is unable to provide appropriate answering to questioning. LP yesterday showing elevated erythrocyte despite non traumatic tap PRevious CT showing no evidence of any obvious bleeding MRI showing no evidence of mets to brain, old stroke in frontotemporal region Differential includes delirium secondary to hospitalization and medication, and possibly severe depression Continue to monitor clinically Hypoxia: Resolved Hx of Emphysema/COPD: CXR no acute findings O2 as needed Continue home albuterol prn Thoracic Back Pain: No pain reported during my exam today, no bony tenderness likely secondary to cholangiocarcinoma vs. bone metastasis Thoracic Spine XR: negative MRI ordered by pain management on 01/19; again requires sedation for MRI will avoid with current acute episode Will reintroduce narcotics as tolerated. Oxycodone 5mg is scheduled QID. Re- started home Lyrica for associated nerve pain. Re-started home qHS Trazadone. Fever One time febrile temperature of 38.0 C at 7:30pm 01/20 night with associated tachycardia. Will re-check UA and get urine culture. Monitor vitals. No current signs of infection. Continuing with antibiotics for now Blood cultures negative x2 Review of Xeloda (Capecitabine) drug information shows Fever as adverse effect 7-18%, but will make sure to rule out infectious source. Leukocytosis Appears to be chronic 19.8 today; initial 18.11; there was a value from 01/01/19 of 19.63. Lactate normal U/a was negative on initial workup; again will re-check to make sure not missing underlying source. CXR no acute findings Blood cultures x 2 - NGTD CSF cultures negative to date Will continue abx for now Cholangiocarcinoma: Stage 4 with liver, peritoneal and lung metastasis Progressive despite treatment with several different chemo agents/regimens Followed by Dr. Guy at [facility] in [place] - is due to get staging Continue Xeloda twice daily in a week on/week off cycle - next cycle on Tuesday01/22/19 Her imaging from November 23 as well as December 03 showed progressive disease. MRCP: 12/04/2018: Multifocal hepatic metastatic disease. Retroperitoneal masses along the dorsal pancreas and left adrenal gland, possible conglomerate lymphadenopathy or implants. CTA chest 01/01/2019: enlarging pulmonary and pleural-based nodular densities when compared 11/23/2018 concerning for recurrent/metastatic disease LFTs stable with persistently elevated alkaline phosphatase 236 today Low albumin 1.9, INR 1.8, PT 17,5, PTT 31.9 Pain control: home oxycodone was held on admission in the setting of AMS/concern for narcotic overdose; now more alert, will treat pain appropriately as noted above Nausea: compazine IV PRN Qt prolongation (not new) and EKG changes: Twave inversion in V2-V4 rate 92, NSR Qtc 514 No chest pain negative troponin Continue to monitor for symptoms Constipation: Chronic in the setting of narcotic use KUB on 01/18/19 with moderate stool burden, no BM since 01/16/19 per daughter Miralax q1h until bowel motion Continue home senokot prn Hypertension/edema: Low BPs during last admission, cortisol test was normal Continue home triamterene/HCTZ prn for LE edema Chronic anemia: stable likely anemia of chronic disease vs. due to chemo/bone marrow suppression Hgb 9.4, baseline 9-10 Continue to monitor Depression/Anxiety/Insomnia: Pt has previously been on nortriptyline and lexapro Re-started home qHS trazodone. But will hold hydroxyzine as it can worsen her mental status. Psychomotor retardation could be secondary to severe depression, if unable to find other cause may consider further workup Hypothyroidism: Sick euthyroid TSH 6.3 but free T4 - normal Continue home levothyroxine GERD: Continue home omeprazole Gout: Continue home allopurinol Neuropathy: Re-started home Lyrica as having pain, but do not want to escalate narcotics. FEN: Regular diet DVT: None as liver dysfunction from cancer with INR 1.8 without anti-coagulation - chemical anticoagulated contraindicated Code: DNR/DNI Dispo: Med/Surg, Here pending complete workup of altered mental status, if we find this to be all secondary to her delirium will be able to discharge home (2) Hypoxia: (3) Chronic obstructive pulmonary disease: (4) Depression: (5) Fatty liver disease, nonalcoholic: (6) Gastroesophageal reflux disease: (7) Gout: (8) Hypercholesterolemia: (9) Hypertension: (10) Hypothyroidism: (11) Constipation: (12) Leukocytosis: (13) Metastatic cancer: (14) Fever: Supervising Physician Co-Signing Physician Notes I personally examined the patient and verified all webster points of history and exam, discussed case, and agree with decision making with Dr Pat. awake and feeling ok, no significant pain, knows she's in a hospital thinks it's 1999. vitals noted nad heent nc at mmm breathing unlabored no pallor or icterus no n otable focal neuro deficits at rest delirium / metabolic and toxic encephalopathy of probable multifactorial etiologies -definite factors: pain/lack of sleep/medication effect (morphine) -fortunatley no brain mets -possible: ?infectious (nothing focal on exam or workup, but has leukocytosis (albeit chronic) along with temps (that could be malignancy related) and elevated inflammatory markers (that could be malignancy related as well) -- continue empiric antibiotics, serial exams, focused workup, follow cultures -- as inflammatory markers are not really changing in a meaningful way pleads more towards malignancy related inflammation but continue empiric abx day to day with serial exams -likely will need some type of SNF level care after discharge since delirium likely to take a while to lift otherwise as above Subjective Blood pressure really seem better this morning, she appears slightly more vivacious this morning, carry on conversation with longer sentences and more complete thoughts of insurance yesterday, remains oriented to person and situation though she does not know which hospital she is then she is aware she is in the hospital. Psychomotor retardation still present she denies any pain at this time Review of Systems Review of Systems: All systems reviewed & are unremarkable except as noted in HPI & below Physical Exam Physical Exam: Constitutional: Clearly altered 63-year-old woman with psychomotor retardation awake alert and oriented x2 not to time or location Eyes: Anicteric sclerae extraocular muscle movements intact bilaterally, pupils equal round reactive to light bilaterally ENMT: No unrealized detected Neck: Supple no masses Respiratory: Chest expansion symmetric, breath sounds vesicular in all lung bryant, no wheezes rhonchi or rales Cardiovascular: Heart sounds dual, regular rate regular rhythm, no murmurs rubs skips or gallops, no peripheral edema Skin: Warm dry and intact Neuro: Cranial layers 2 through 12 examined normally, myoclonic jerks not present currently, reflexes normal, no focal weakness though patient does appear globally weak Results & Data Vital Signs (Past 12 Hours) Vital Signs Temp Pulse Pulse Resp BP Pulse Ox 01/23/19 15:23 36.4 C L 103 H 21 134/83 94 01/23/19 11:30 36.6 C 87 18 147/78 H 94 01/23/19 07:31 110 H PG Care Time/CCT Total # of Minutes Spent Total Time Spent with Patient: Total time spent is greater than 50% in coordination of care (as documented) at patient's floor/unit and/or counseling patient: Resident Activity Tracking Resident Involvement: Resident Care Provided Care Provided: Adult Hospital Medicine (1) Fever Fever type: unspecified Qualified Code(s): R50.9 - Fever, unspecified (2) Leukocytosis Leukocytosis type: unspecified Qualified Code(s): D72.829 - Elevated white blood cell count, unspecified (3) AMS (altered mental status) Altered mental status type: unspecified Qualified Code(s): R41.82 - Altered mental status, unspecified (4) Constipation Constipation type: slow transit constipation Qualified Code(s): K59.01 - Slow transit constipation
[2019-01-23] MEDS: TRAZODONE HCL 100 MG TAB PO SCH (21:18)
[2019-01-23] MEDS: OXYCODONE HCL IR 5 MG TAB (IMMEDIATE RELEASE) PO PRN (21:22)
[2019-01-24] MEDS: POLYETHYLENE (MIRALAX) 17 GM PACK PO SCH ×5 (00:57→08:49)
[2019-01-24 06:43] LABS: Basophils # (auto) 0.04 K/uL (0-0.2); Basophils % (auto) 0.2 %; Eosinophils # (auto) 0.14 K/uL (0-0.5); Eosinophils % (auto) 0.7 %; Hemoglobin 9.3 g/dL (12.0-16.0); Immature Granulocytes # (auto) 0.07 K/uL (0.00-0.02); Immature Granulocytes % (auto) 0.4 %; Lymphocytes # (auto) 1.82 K/uL (1.2-3.4); Lymphocytes % (auto) 9.2 %; Mean Corpuscular Hemoglobin 24.2 pg (25-34); Mean Corpuscular Volume 77.9 fL (80-100); Monocytes # (auto) 1.61 K/uL (0.11-0.59); Monocytes % (auto) 8.1 %; Neutrophils # (auto) 16.16 K/uL (1.4-6.5); Neutrophils % (auto) 81.4 %; Platelet Count 242 K/uL (130-400); RDW Coefficient of Variation 20.3 % (11.5-14.5); RDW Standard Deviation 57.6 fL (36.4-46.3); Red Blood Count 3.85 M/uL (4.2-5.4); White Blood Count 19.84 K/uL (4.8-10.8)
[2019-01-24 07:08] LABS: Anisocytosis Present
[2019-01-24 07:15] LABS: Calcium 8.8 mg/dl (8.5-10.1); Creatinine Clr Calc Pharmacy 104.9 ml/min; Est GFR (African American) 112.1; Est GFR (Non-African American) 96.7; Potassium 3.1 mmol/L (3.5-5.1)
[2019-01-24 07:22] LABS: C Reactive Protein 24.6 mg/dl (0-0.29)
[2019-01-24] MEDS: PANTOprazole 40 MG TAB PO SCH (08:49)
[2019-01-24] MEDS: ALLOPURINOL 100 MG TAB PO SCH (08:49)
[2019-01-24] MEDS: LEVOTHYROXINE SODIUM 88 MCG TABLET PO SCH (08:50)
[2019-01-24] MEDS: DOCUSATE SODIUM 100 MG CAP PO SCH ×2 (08:50→21:10)
[2019-01-24] MEDS: CHOLECALCIFEROL 1,000 UNITS TAB PO SCH (08:50)
[2019-01-24] MEDS: PREGABALIN 75 MG CAP PO SCH ×3 (08:53→21:16)
[2019-01-24] MEDS: POTASSIUM CHLORIDE / WTR 10 MEQ/100 ML PLCT IV SCH ×4 (09:51→14:10)
[2019-01-24] MEDS: OXYCODONE HCL IR 5 MG TAB (IMMEDIATE RELEASE) PO PRN (10:42)
--- NOTE | 2019-01-24 12:22 | Palliative Care Progress Note ---
Date of Service January 24, 2019 Assessment & Plan (1) Goals of care, counseling/discussion: -Patient sitting in her bedside chair during encounter. -Patient closes eyes throughout the encounter and was attempting to eat lunch with her sister at her side. -Patient unable to tell me where her pain is -She did say she has an eventual goal of returning home. -I discussed outpatient palliative care with her and her sister, the patient fell asleep for a lot of our conversation. Her last Oxy IR was at 1042 (almost 2 hours ago) -PT/OT came to see the patient yesterday afternoon, no official recommendations/notes listed yet. -Per the patients sister, plan is for [facility], which during this encounter, may be too rigorous for her, will await further PT/OT recommendations -Possibly, SNF may be more appropriate for her, once evals are in, recommend further discussion with patients daughter, Judi. -A POLST may be helpful prior to discharge. -PPS: 30% (2) AMS (altered mental status): (3) Low back pain: (4) Carcinoma of lung: Subjective Patient sitting in her bedside chair during encounter. Patient closes eyes throughout the encounter and was attempting to eat lunch with her sister at her side. Patient unable to tell me where her pain is She did say she has an eventual goal of returning home. See A/P for further details. Review of Systems Review of Systems: Unobtainable due to cognitive status (Patient falling asleep during conversation and unreliable ROS) Constitutional: + weakness Musculoskeletal: + back pain (4-8/10 in thoracic/lower back area) Neurologic: + confusion (reported by patients friend Rafaela) Physical Exam Constitutional: + frail appearing Respiratory: normal respiratory effort, lungs clear to auscultation (on room air) Cardiovascular: Rate/Rhythm: regular rate and regular rhythm Heart Sounds: normal S1 and normal S2 Extremities: + edema (+ 2 pitting bilateral LE) Gastrointestinal (Abdomen): normal bowel sounds, soft, nontender, no hepatosplenomegaly Skin: no rashes, warm and dry Psychiatric: Orientation: alert, oriented to person and cooperative Eye Contact: + fair eye contact Results & Data Vital Signs (Past 12 Hours) Vital Signs Temp Pulse Pulse Resp BP BP Pulse Ox 01/24/19 11:48 36.8 C 107 H 18 121/80 95 01/24/19 07:37 87 01/24/19 07:18 37.1 C 85 18 134/81 91 01/24/19 03:05 36.3 C L 113 H 20 110/72 97 PG Care Time/CCT Total # of Minutes Spent Total Time Spent with Patient: Total time spent is greater than 50% in coordination of care (as documented) at patient's floor/unit and/or counseling patient: 35 Time Spent Midlevel Total time spent 35 minutes with > 50% of that time spent assessing the patient, discussing discharge plans with patients sister. (1) Low back pain Back pain laterality: unspecified Chronicity: acute Sciatica presence: without sciatica Qualified Code(s): M54.5 - Low back pain (2) AMS (altered mental status) Altered mental status type: unspecified Qualified Code(s): R41.82 - Altered mental status, unspecified
--- NOTE | 2019-01-24 20:16 | Family Medicine Progress Note ---
Date of Service January 24, 2019 Assessment & Plan (1) AMS (altered mental status): 63yoF with hx of metastatic cholangiocarcinoma, HTN, hypothyroidism and depression presents with AMS and hypoxia concerning for narcotic overdose vs. brain metastasis vs. infection vs. stroke. AMS: Continues to have no focal neuro deficits. CT head no acute findings Family believes this is from opiate overuse due to uncontrolled pain. since becoming more alert but there might be underlying cognitive decline. She is unable to provide appropriate answering to questioning. LP yesterday showing elevated erythrocyte despite non traumatic tap PRevious CT showing no evidence of any obvious bleeding MRI showing no evidence of mets to brain, old stroke in frontotemporal region Differential includes delirium secondary to hospitalization and medication, and possibly severe depression Will d/c antibiotics and arrange for discharge to Rehab or SNF Spoke with daughter and she feels patient is doing better and agrees with plan. WIll need to try to orient patient as best we can and keep her awake and up and walking as tolerated during the day and asleep through the night Pain meds only as needed Hypoxia: Resolved Hx of Emphysema/COPD: CXR no acute findings Continue home albuterol prn Thoracic Back Pain: No pain reported during my exam today, no bony tenderness likely secondary to cholangiocarcinoma vs. bone metastasis Thoracic Spine XR: negative MRI ordered by pain management on 01/19; again requires sedation for MRI will avoid with current acute episode Will reintroduce narcotics as tolerated. Oxycodone 5mg is scheduled QID. Re- started home Lyrica for associated nerve pain. Re-started home qHS Trazadone. Fever One time febrile temperature of 38.0 C at 7:30pm 01/20 night with associated tachycardia. Will re-check UA and get urine culture. Monitor vitals. No current signs of infection. Continuing with antibiotics for now Blood cultures negative x2 Review of Xeloda (Capecitabine) drug information shows Fever as adverse effect 7-18%, but will make sure to rule out infectious source. Leukocytosis Appears to be chronic 19.8 today; initial 18.11; there was a value from 01/01/19 of 19.63. Lactate normal U/a was negative on initial workup; again will re-check to make sure not missing underlying source. CXR no acute findings Blood cultures x 2 - NGTD CSF cultures negative to date Will continue abx for now Cholangiocarcinoma: Stage 4 with liver, peritoneal and lung metastasis Progressive despite treatment with several different chemo agents/regimens Followed by Dr. Guy at [facility] in [place] - is due to get staging Continue Xeloda twice daily in a week on/week off cycle - next cycle on Tuesday01/22/19 Her imaging from November 23 as well as December 03 showed progressive disease. MRCP: 12/04/2018: Multifocal hepatic metastatic disease. Retroperitoneal masses along the dorsal pancreas and left adrenal gland, possible conglomerate lymphadenopathy or implants. CTA chest 01/01/2019: enlarging pulmonary and pleural-based nodular densities when compared 11/23/2018 concerning for recurrent/metastatic disease LFTs stable with persistently elevated alkaline phosphatase 236 today Low albumin 1.9, INR 1.8, PT 17,5, PTT 31.9 Pain control: home oxycodone was held on admission in the setting of AMS/concern for narcotic overdose; now more alert, will treat pain appropriately as noted above Nausea: compazine IV PRN Will hold off on chemo and I will call her oncologists office to discuss resu mption of antibiotics Qt prolongation (not new) and EKG changes: Twave inversion in V2-V4 rate 92, NSR Qtc 514 No chest pain negative troponin Continue to monitor for symptoms Constipation: Chronic in the setting of narcotic use KUB on 01/18/19 with moderate stool burden, no BM since 01/16/19 per daughter Miralax q1h until bowel motion ordered yesterday Good bowel motions today, may be contributing to her positive change in mental status Hypertension/edema: Low BPs during last admission, cortisol test was normal Continue home triamterene/HCTZ prn for LE edema Chronic anemia: stable likely anemia of chronic disease vs. due to chemo/bone marrow suppression Hgb 9.4, baseline 9-10 Continue to monitor Depression/Anxiety/Insomnia: Pt has previously been on nortriptyline and lexapro Re-started home qHS trazodone. But will hold hydroxyzine as it can worsen her mental status. Psychomotor retardation could be secondary to severe depression, if unable to find other cause may consider further workup Hypothyroidism: Sick euthyroid TSH 6.3 but free T4 - normal Continue home levothyroxine GERD: Continue home omeprazole Gout: Continue home allopurinol Neuropathy: Re-started home Lyrica as having pain, but do not want to escalate narcotics. FEN: Regular diet DVT: None as liver dysfunction from cancer with INR 1.8 without anti-coagulation - chemical anticoagulated contraindicated Code: DNR/DNI Dispo: Med/Surg, we believe this is likely delirium she will likely be stable for d/c to SNF or acute rehab tomorrow (2) Hypoxia: (3) Chronic obstructive pulmonary disease: (4) Depression: (5) Fatty liver disease, nonalcoholic: (6) Gastroesophageal reflux disease: (7) Gout: (8) Hypercholesterolemia: (9) Hypertension: (10) Hypothyroidism: (11) Constipation: (12) Leukocytosis: (13) Metastatic cancer: (14) Fever: (15) Delirium: (16) Goals of care, counseling/discussion: (17) Low back pain: Supervising Physician Co-Signing Physician Notes I personally examined the patient and verified all webster points of history and exam, discussed case, and agree with decision making with Dr Pat. awake more interactive. Starting to have some bowel movements. vitals noted nad heent nc at mmm breathing unlabored no pallor or icterus no notable focal neuro deficits at rest delirium / metabolic and toxic encephalopathy of probable multifactorial etiologies -definite factors: pain/lack of sleep/medication effect (morphine) -fortunatley no brain mets -possible: ?infectious but this is seeming far less likely given that she is now off of antibiotics and not looking any worse, nor did she really show any dramatic changes while on antibiotics, nor are we seeing any focal areas of infection. -likely will need some type of SNF level care after discharge since delirium likely to take a while to lift otherwise as above Subjective Attending: Bakari Goldstein is a little more alert today. She is oriented to person and situation. She blames herself for what happened, tried to explain to her that this is in no way her fault. Was able to talk to daughter and explain what we believe is patient's delirium and she expressed her understanding and desire to get her to a SNF or rehab hospital quickly. Review of Systems Review of Systems: All systems reviewed & are unremarkable except as noted in HPI & below Physical Exam Physical Exam: Constitutional: Somnolent 63-year-old woman with psychomotor retardation awake alert and oriented x3 not to time but to person place and siutation Eyes: Anicteric sclerae extraocular muscle movements intact bilaterally, pupils equal round reactive to light bilaterally ENMT: No unrealized detected Neck: Supple no masses Respiratory: Chest expansion symmetric, breath sounds vesicular in all lung fiel ds, no wheezes rhonchi or rales Cardiovascular: Heart sounds dual, regular rate regular rhythm, no murmurs rubs skips or gallops, no peripheral edema Skin: Warm dry and intact Neuro: Cranial layers 2 through 12 examined normally, myoclonic jerks not present currently, reflexes normal, no focal weakness though patient does appear globally weak Results & Data Vital Signs (Past 12 Hours) Vital Signs Temp Pulse Pulse Resp BP BP Pulse Ox 01/24/19 11:48 36.8 C 107 H 18 121/80 95 01/24/19 07:37 87 01/24/19 07:18 37.1 C 85 18 134/81 91 01/24/19 03:05 36.3 C L 113 H 20 110/72 97 PG Care Time/CCT Total # of Minutes Spent Total Time Spent with Patient: Total time spent is greater than 50% in coordination of care (as documented) at patient's floor/unit and/or counseling patient: Resident Activity Tracking Resident Involvement: Resident Care Provided Care Provided: Adult Hospital Medicine (1) Low back pain Back pain laterality: unspecified Chronicity: acute Sciatica presence: without sciatica Qualified Code(s): M54.5 - Low back pain (2) Fever Fever type: unspecified Qualified Code(s): R50.9 - Fever, unspecified (3) Leukocytosis Leukocytosis type: unspecified Qualified Code(s): D72.829 - Elevated white blood cell count, unspecified (4) AMS (altered mental status) Altered mental status type: unspecified Qualified Code(s): R41.82 - Altered mental status, unspecified (5) Constipation Constipation type: slow transit constipation Qualified Code(s): K59.01 - Slow transit constipation
[2019-01-24] MEDS: SENNA 8.6 MG TAB PO PRN (21:10)
[2019-01-24] MEDS: TRAZODONE HCL 100 MG TAB PO SCH ×2 (21:10→21:25)
[2019-01-24] MEDS: MAGNESIUM HYDROXIDE SUSP 30 ML UDC PO PRN (21:10)
[2019-01-24] MEDS: POLYETHYLENE (MIRALAX) 17 GM PACK PO PRN (21:11)
[2019-01-25] MEDS: LEVOTHYROXINE SODIUM 88 MCG TABLET PO SCH (06:07)
[2019-01-25 07:23] LABS: Hematocrit (blood only) 32.3 % (37-47); Mean Corpuscular Volume 77.5 fL (80-100); Mean Platelet Volume 10.5 fL (7.4-10.4); Platelet Count 355 K/uL (130-400); RDW Coefficient of Variation 20.7 % (11.5-14.5); RDW Standard Deviation 58.2 fL (36.4-46.3); Red Blood Count 4.17 M/uL (4.2-5.4); White Blood Count 25.15 K/uL (4.8-10.8)
[2019-01-25 07:45] LABS: Anisocytosis Present; Basophils # (auto) 0.03 K/uL (0-0.2); Basophils % (auto) 0.1 %; Eosinophils # (auto) 0.16 K/uL (0-0.5); Eosinophils % (auto) 0.6 %; Immature Granulocytes # (auto) 0.08 K/uL (0.00-0.02); Immature Granulocytes % (auto) 0.3 %; Lymphocytes # (auto) 1.82 K/uL (1.2-3.4); Lymphocytes % (auto) 7.2 %; Microcytosis Present; Monocytes # (auto) 2.26 K/uL (0.11-0.59); Neutrophils % (auto) 82.8 %; Toxic Vacuolation 1+
[2019-01-25 07:49] LABS: BUN Creatinine Ratio 16.2 (10-20); Calcium 8.8 mg/dl (8.5-10.1); Creatinine Clr Calc Pharmacy 82.6 ml/min; Est GFR (African American) 98.5; Potassium 3.5 mmol/L (3.5-5.1)
[2019-01-25] MEDS: PANTOprazole 40 MG TAB PO SCH (08:47)
[2019-01-25] MEDS: PREGABALIN 75 MG CAP PO SCH ×3 (08:47→20:52)
[2019-01-25] MEDS: DOCUSATE SODIUM 100 MG CAP PO SCH ×2 (08:47→20:52)
[2019-01-25] MEDS: CHOLECALCIFEROL 1,000 UNITS TAB PO SCH (08:47)
[2019-01-25] MEDS: POLYETHYLENE (MIRALAX) 17 GM PACK PO PRN (08:47)
[2019-01-25] MEDS: ALLOPURINOL 100 MG TAB PO SCH (08:48)
[2019-01-25] MEDS: SENNA 8.6 MG TAB PO PRN (09:55)
--- NOTE | 2019-01-25 11:26 | XRay Report ---
KUB CLINICAL HISTORY: Constipation, fecal impaction? COMPARISON STUDY: KUB January 18, 2019. FINDINGS: Incidental note is made of cholecystectomy clips. There is gas throughout the small and lar ge bowel. There is no evidence for a bowel obstruction. Moderate amount stool within the rectum has d ecreased in amount since exam January 18, 2019. IMPRESSION: 1. Interval decrease in stool within the rectum. Moderate residual stool. 2. No evidence for a bowel obstruction. Electronically signed by: Delfin Jones M.D. 01/25/2019 11:24 AM
--- NOTE | 2019-01-25 13:22 | Family Medicine Progress Note ---
Date of Service January 25, 2019 Assessment & Plan (1) AMS (altered mental status): 63yoF with hx of metastatic cholangiocarcinoma, HTN, hypothyroidism and depression presents with AMS and hypoxia concerning for narcotic overdose vs. brain metastasis vs. infection vs. stroke. AMS: Much improved today, mentation and psychomotor retardation both improved Continues to have no focal neuro deficits. CT head no acute findings Family believes this is from opiate overuse due to uncontrolled pain. 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 WIll need to try to orient patient as best we can and keep her awake and up and walking as tolerated during the day and asleep through the night Pain meds only as needed Constipation Improved today, though patient still having discomfort and feeling like she has to go May have played a role in her delirium as well Hypoxia: Resolved Hx of Emphysema/COPD: CXR no acute findings Continue home albuterol prn Thoracic Back Pain: No pain reported during my exam today, no bony tenderness likely secondary to cholangiocarcinoma vs. bone metastasis Thoracic Spine XR: negative MRI ordered by pain management on 01/19; again requires sedation for MRI will avoid with current acute episode Will reintroduce narcotics as tolerated. Oxycodone 5mg is scheduled QID. Re- started home Lyrica for associated nerve pain. Re-started home qHS Trazadone. Fever and leukocytosis One time febrile temperature of 38.0 C at 7:30pm 01/20 night with associated tachycardia. Will re-check UA and get urine culture. Monitor vitals. No current signs of infection. Lactate normal U/a was negative on initial workup; again will re-check to make sure not missing underlying source. CXR no acute findings Blood cultures x 2 - NGTD CSF cultures negative to date Antibiotics discontinued Blood cultures negative x2 Review of Xeloda (Capecitabine) drug information shows Fever as adverse effect 7-18%, but will make sure to rule out infectious source. White count up slightly though chronically high up to 25 since stopping antibiotics, still no evidence of infection but will watch for 24 more hours without antibiotics to make sure nothing presents itself Cholangiocarcinoma: Stage 4 with liver, peritoneal and lung metastasis Progressive despite treatment with several different chemo agents/regimens Followed by Dr. Guy at [facility] in [place] - is due to get staging Continue Xeloda twice daily in a week on/week off cycle - next cycle on Tuesday01/22/19 Her imaging from November 23 as well as December 03 showed progressive disease. MRCP: 12/04/2018: Multifocal hepatic metastatic disease. Retroperitoneal masses along the dorsal pancreas and left adrenal gland, possible conglomerate lymphadenopathy or implants. CTA chest 01/01/2019: enlarging pulmonary and pleural-based nodular densities when compared 11/23/2018 concerning for recurrent/metastatic disease LFTs stable with persistently elevated alkaline phosphatase 236 today Low albumin 1.9, INR 1.8, PT 17,5, PTT 31.9 Pain control: home oxycodone was held on admission in the setting of AMS/concern for narcotic overdose; now more alert, will treat pain appropriately as noted above Nausea: compazine IV PRN Will hold off on chemo and I will call her oncologists office to discuss resumption of antibiotics Called Dr. Cao's office at [facility], no answer and no voicemail box, will try again tomorrow and forward our d/c summary to him as well. Qt prolongation (not new) and EKG changes: Twave inversion in V2-V4 rate 92, NSR Qtc 514 No chest pain negative troponin Continue to monitor for symptoms Hypertension/edema: Low BPs during last admission, cortisol test was normal Continue home triamterene/HCTZ prn for LE edema Chronic anemia: stable likely anemia of chronic disease vs. due to chemo/bone marrow suppression Hgb 9.4, baseline 9-10 Continue to monitor Depression/Anxiety/Insomnia: Pt has previously been on nortriptyline and lexapro Re-started home qHS trazodone. But will hold hydroxyzine as it can worsen her mental status. Psychomotor retardation could be secondary to severe depression, if unable to find other cause may consider further workup Hypothyroidism: Sick euthyroid TSH 6.3 but free T4 - normal Continue home levothyroxine GERD: Continue home omeprazole Gout: Continue home allopurinol Neuropathy: Re-started home Lyrica as having pain, but do not want to escalate narcotics. FEN: Regular diet DVT: None as liver dysfunction from cancer with INR 1.8 without anti-coagulation - chemical anticoagulated contraindicated Code: DNR/DNI Dispo: Med/Surg, we believe this is likely delirium she will likely be stable for d/c to SNF or acute rehab in near future, will hold for one more day to reassure that we are not dealing with a hidden infection. (2) Hypoxia: (3) Chronic obstructive pulmonary disease: (4) Depression: (5) Fatty liver disease, nonalcoholic: (6) Gastroesophageal reflux disease: (7) Gout: (8) Hypercholesterolemia: (9) Hypertension: (10) Hypothyroidism: (11) Constipation: (12) Leukocytosis: (13) Metastatic cancer: (14) Fever: (15) Delirium: (16) Goals of care, counseling/discussion: (17) Low back pain: Supervising Physician Co-Signing Physician Notes I personally examined the patient and verified all webster points of history and exam, discussed case, and agree with decision making with Dr Pat. awake more interactive. Starting to have some bowel movements. vitals noted nad heent nc at mmm breathing unlabored no pallor or icterus no notable focal neuro deficits at rest delirium / metabolic and toxic encephalopathy of probable multifactorial etiologies -definite factors: pain/lack of sleep/medication effect (morphine) -fortunatley no brain mets -possible: ?infectious but this is seeming far less likely given that she is now off of antibiotics and not looking any worse, nor did she really show any dramatic changes while on antibiotics, nor are we seeing any focal areas of infection. -likely will need some type of SNF level care after discharge since delirium likely to take a while to lift otherwise as above Subjective Attending Bakari Perkins DO Ms Booth is doing much better this morning, she is able to converse about normally with me. Unfortunately she is having some discomfort from her constipation. She has been moving stool since yesterday, but a lot of liquid stool and discomfort still. Patient's family believe she is more oriented and clear in her speech than she has been. Review of Systems Review of Systems: All systems reviewed & are unremarkable except as noted in HPI & below Physical Exam Physical Exam: Constitutional: 63 year old woman awake alert and oriented x3 not to time but to person place and situtation Eyes: Anicteric sclerae extraocular muscle movements intact bilaterally, pupils equal round reactive to light bilaterally ENMT: No unrealized detected Neck: Supple no masses Respiratory: Chest expansion symmetric, breath sounds vesicular in all lung bryant, no wheezes rhonchi or rales Cardiovascular: Heart sounds dual, regular rate regular rhythm, no murmurs rubs skips or gallops, no peripheral edema Skin: Warm dry and intact Neuro: Cranial nerves 2 through 12 examined normally, myoclonic jerks not present currently, reflexes normal, no focal weakness though patient does appear globally weak Rectal Exam: Large amount of liquid stool expressed during exam, small amount of apricot pit sized stool that is firmer and floating in the liquid stool, it is quite soft and moldable, not able to bring it out at this time. No blood no other issues Results & Data Vital Signs (Past 12 Hours) Vital Signs Temp Pulse Resp BP BP Pulse Ox 01/25/19 11:45 36.6 C 86 16 124/82 96 01/25/19 08:00 36.5 C 112 H 18 136/82 94 01/25/19 03:51 37.0 C 113 H 19 128/72 95 PG Care Time/CCT Total # of Minutes Spent Total Time Spent with Patient: Total time spent is greater than 50% in coordination of care (as documented) at patient's floor/unit and/or counseling patient: Resident Activity Tracking Resident Involvement: Resident Care Provided Care Provided: Adult Hospital Medicine (1) Low back pain Back pain laterality: unspecified Chronicity: acute Sciatica presence: without sciatica Qualified Code(s): M54.5 - Low back pain (2) Fever Fever type: unspecified Qualified Code(s): R50.9 - Fever, unspecified (3) Leukocytosis Leukocytosis type: unspecified Qualified Code(s): D72.829 - Elevated white blood cell count, unspecified (4) AMS (altered mental status) Altered mental status type: unspecified Qualified Code(s): R41.82 - Altered mental status, unspecified (5) Constipation Constipation type: slow transit constipation Qualified Code(s): K59.01 - Slow transit constipation
[2019-01-25] MEDS: OXYCODONE HCL IR 5 MG TAB (IMMEDIATE RELEASE) PO PRN (20:52)
[2019-01-25] MEDS: TRAZODONE HCL 100 MG TAB PO SCH (20:52)
[2019-01-26] MEDS: LEVOTHYROXINE SODIUM 88 MCG TABLET PO SCH (05:37)
[2019-01-26 07:53] LABS: Basophils # (auto) 0.03 K/uL (0-0.2); Basophils % (auto) 0.1 %; Eosinophils # (auto) 0.29 K/uL (0-0.5); Eosinophils % (auto) 1.2 %; Hematocrit (blood only) 30.4 % (37-47); Hemoglobin 9.8 g/dL (12.0-16.0); Immature Granulocytes # (auto) 0.09 K/uL (0.00-0.02); Immature Granulocytes % (auto) 0.4 %; Lymphocytes # (auto) 2.53 K/uL (1.2-3.4); Lymphocytes % (auto) 10.4 %; Mean Corpuscular Hemoglobin 24.8 pg (25-34); Mean Corpuscular Hgb Conc 32.2 g/dL (32-36); Mean Platelet Volume 9.8 fL (7.4-10.4); Monocytes # (auto) 2.64 K/uL (0.11-0.59); Monocytes % (auto) 10.8 %; Neutrophils # (auto) 18.84 K/uL (1.4-6.5); Neutrophils % (auto) 77.1 %; Platelet Count 286 K/uL (130-400); RDW Coefficient of Variation 20.5 % (11.5-14.5); RDW Standard Deviation 56.9 fL (36.4-46.3); Red Blood Count 3.95 M/uL (4.2-5.4); White Blood Count 24.42 K/uL (4.8-10.8)
[2019-01-26 08:14] LABS: Anisocytosis Present; Microcytosis Present; Polychromasia 1+
[2019-01-26] MEDS: PANTOprazole 40 MG TAB PO SCH (08:14)
[2019-01-26] MEDS: ALLOPURINOL 100 MG TAB PO SCH (08:14)
[2019-01-26] MEDS: CHOLECALCIFEROL 1,000 UNITS TAB PO SCH (08:14)
[2019-01-26] MEDS: DOCUSATE SODIUM 100 MG CAP PO SCH ×2 (08:15→20:30)
[2019-01-26] MEDS: POLYETHYLENE (MIRALAX) 17 GM PACK PO SCH (08:15)
[2019-01-26 08:19] LABS: BUN Creatinine Ratio 20.9 (10-20); Calcium 8.6 mg/dl (8.5-10.1); Creatinine Clr Calc Pharmacy 115.2 ml/min; Est GFR (African American) 115.5; Est GFR (Non-African American) 99.6; Potassium 3.7 mmol/L (3.5-5.1)
[2019-01-26] MEDS: PREGABALIN 75 MG CAP PO SCH ×3 (08:19→20:30)
[2019-01-26] MEDS: OXYCODONE HCL IR 5 MG TAB (IMMEDIATE RELEASE) PO PRN ×2 (09:49→20:30)
--- NOTE | 2019-01-26 09:57 | Family Medicine Progress Note ---
Date of Service January 26, 2019 Assessment & Plan (1) AMS (altered mental status): 63yoF with hx of metastatic cholangiocarcinoma, HTN, hypothyroidism and depression presented with AMS and hypoxia. Delirium: likely multifactorial metabolic vs. toxic In the setting of pain, narcotic pain medications, constipation and lack of sleep Much improved today, mentation and psychomotor retardation both improved. No concern for infection. Doing well off abx. No focal neuro deficits. CT head no acute findings MRI showing no evidence of mets to brain, old stroke in frontotemporal region LP showing elevated erythrocyte despite non traumatic tap - concerned for metastasis but MRI reassuring Abx dced Pending discharge to Rehab or SNF Family advised to orient patient, keep her awake and up and walking as tolerated during the day and asleep through the night Pain meds only as needed Constipation-Improving Colace and miralax arlyn May have played a role in her delirium as well Hypoxia: Resolved Hx of Emphysema/COPD: CXR no acute findings Continue home albuterol prn Chronic Thoracic Back Pain: No pain reported today likely secondary to cholangiocarcinoma vs. bone metastasis Thoracic Spine XR: negative MRI ordered by pain management on 01/19; again requires sedation for MRI will avoid with current acute episode Oxycodone 5mg QID PRN Continue home Lyrica and qHS Trazadone. Fever and leukocytosis-Curerntly remained afebrile, likely chronic leukocytosis Hx of elevated WBC at baseline One time febrile temperature of 38.0 C at 7:30pm 01/20 night with associated tachycardia. No current signs of infection. Lactate normal CXR no acute findings Blood cultures x 2 - NGTD UCx neg CSF cultures negative to date CRP and ESR chronically elevated likely due to inflammation in the setting of malignancy - did not improve with abx Antibiotics discontinued Cholangiocarcinoma: Stage 4 with liver, peritoneal and lung metastasis Progressive despite treatment with several different chemo agents/regimens Followed by Dr. Guy at [facility] in [place] - is due to get staging Her imaging from November 23 as well as December 03 showed progressive disease. MRCP: 12/04/2018: Multifocal hepatic metastatic disease. Retroperitoneal masses along the dorsal pancreas and left adrenal gland, possible conglomerate lymphadenopathy or implants. CTA chest 01/01/2019: enlarging pulmonary and pleural-based nodular densities when compared 11/23/2018 concerning for recurrent/metastatic disease LFTs stable with persistently elevated alkaline phosphatase Initial labs: Low albumin 1.9, INR 1.8, PT 17,5, PTT 31.9 Pain control: home oxycodone prn Nausea: compazine IV PRN Hold - Xeloda receives twice daily in a week on/week off cycle - next cycle on Tuesday01/22/[address] Cao's office at [facility], no answer and no voicemail box, forward dc summary Qt prolongation (not new) and EKG changes: Twave inversion in V2-V4 rate 92, NSR Qtc 514 No chest pain negative troponin Continue to monitor for symptoms Hypertension/edema: Low BPs during last admission, cortisol test was normal Continue home triamterene/HCTZ prn for LE edema Chronic anemia: stable likely anemia of chronic disease vs. due to chemo/bone marrow suppression Hgb 9.8, baseline 9-10 Continue to monitor Depression/Anxiety/Insomnia: Pt has previously been on nortriptyline and lexapro Re-started home qHS trazodone. But will hold hydroxyzine as it can worsen her mental status. Psychomotor retardation could be secondary to severe depression, if unable to find other cause may consider further workup Hypothyroidism: Sick euthyroid TSH 6.3 but free T4 - normal Continue home levothyroxine GERD: Continue home omeprazole Gout: Continue home allopurinol Neuropathy: home Lyrica FEN: Regular diet DVT: None as liver dysfunction from cancer with INR 1.8 without anti-coagulation - chemical anticoagulated contraindicated Code: DNR/DNI Dispo: Med/Surg, stable for d/c to SNF or acute rehab (2) Hypoxia: (3) Chronic obstructive pulmonary disease: (4) Depression: (5) Fatty liver disease, nonalcoholic: (6) Gastroesophageal reflux disease: (7) Gout: (8) Hypercholesterolemia: (9) Hypertension: (10) Hypothyroidism: (11) Constipation: (12) Leukocytosis: (13) Metastatic cancer: (14) Fever: (15) Delirium: (16) Goals of care, counseling/discussion: (17) Low back pain: Supervising Physician Co-Signing Physician Notes I personally examined the patient and verified all webster points of history and exam, discussed case, and agree with decision making with Dr Hatch. awake and interactive, doing well overall. awaiting placement decisions vitals noted nad heent nc at mmm breathing unlabored no pallor or icterus no notable focal neuro deficits at rest delirium / metabolic and toxic encephalopathy of probable multifactorial etiologies -definite factors: pain/lack of sleep/medication effect (morphine) -constipation probably played a role - improving. continue bowel regimen -fortunately no brain mets -infectious is seeming far less likely given that she is now off of antibiotics and not looking any worse, nor did she really show any dramatic changes while on antibiotics, nor are we seeing any focal areas of infection. -likely will need some type of SNF level care after discharge since delirium likely to take a while to lift otherwise as above Subjective Attending: Bakari Perkins DO Ms Booth is doing much better this morning. She is able to converse, more alert and oriented. No significant abdominal discomfort this AM from likely improving constipation. Still having loose BMs likely from receiving bowel regimens. Per family she is also doing a lot better. Sister even took her on a walk up and down the hallway. Denies any fever, chills, shortness of breath, chest pain, nausea/vomiting, abdominal pain, dysuria Review of Systems Review of Systems: As per HPI Physical Exam Physical Exam: General: In NAD, able to interact HEENT: moist mucous membranes Neuro: A&O x 4 Pulm: mild crackles appreciated RLL, equal breath sounds bilaterally CV: RRR, no m/r/g Abdomen:+BS-hyperactive, no TTP in all quadrants, non-distended LE: 2+ LE edema, no calf TTP Results & Data Vital Signs (Past 12 Hours) Vital Signs Temp Pulse Pulse Resp BP Pulse Ox 01/26/19 07:28 87 01/26/19 05:34 37.2 C 104 H 21 115/68 93 01/26/19 00:00 82 01/25/19 23:27 37.2 C 100 H 22 114/57 L 94 Laboratory Results Abnormal lab results 01/26/19 01/26/19 01/26/19 Range/Units 07:39 07:39 07:39 WBC 24.42 H (4.8-10.8) K/uL RBC 3.95 L (4.2-5.4) M/uL Hgb 9.8 L (12.0-16.0) g/dL Hct 30.4 L (37-47) % MCV 77.0 L (80-100) fL MCH 24.8 L (25-34) pg RDW Std Deviation 56.9 H (36.4-46.3) fL RDW Coeff of Harish 20.5 H (11.5-14.5) % Immature Gran # (Auto) 0.09 H (0.00-0.02) K/uL Neut # (Auto) 18.84 H (1.4-6.5) K/uL [place] # (Auto) 2.64 H (0.11-0.59) K/uL Sodium 134 L (136-145) mmol/L Creatinine 0.53 L (0.6-1.2) mg/dl BUN/Creatinine Ratio 20.9 H (10-20) Glucose 100 H (70-99) mg/dl C-Reactive Protein 22.40 H (0-0.29) mg/dl Medications Administered Current Inpatient Medications Albuterol (Ventolin Hfa) 2 puffs INH Q4H PRN PRN Reason: Shortness Of Breath Stop: 02/19/19 05:48 [facility]op[facility] [place] Stop: 02/19/19 08:59 Last Admin: 01/26/19 08:14 Dose: 100 mg Documented by: Capecitabine (Xeloda) 3 ea PO BID [facility] Last Admin: 01/22/19 08:15 Dose: Not Given Documented by: Docusate Sodium (Colace) 100 mg PO BID [facility] Stop: 02/19/19 08:59 Last Admin: 01/26/19 08:15 Dose: 100 mg Documented by: Gadobutrol (Gadavist 65ml) 8 ml IV ONCE PRN PRN Reason: Interaction Checking Stop: 01/26/19 23:52 Last Admin: 01/22/19 23:32 Dose: 8 ml Documented by: Prochlorperazine 10 mg/ (Syringe) 10 mls @ 5 mls/min IV Q6H PRN PRN Reason: Nausea And Vomiting Stop: 02/19/19 05:48 Levothyroxine Sodium (Synthroid) 88 mcg PO DAILYBB [facility] Stop: 02/19/19 06:29 Last Admin: 01/26/19 05:37 Dose: 88 mcg Documented by: Magnesium Hydroxide (Milk Of Magnesia) 30 ml PO Q6H PRN PRN Reason: Constipation Stop: 02/23/19 20:25 Last Admin: 01/24/19 21:10 Dose: 30 ml Documented by: Oxycodone HCl (Roxicodone Immediate Rel) 5 mg PO QID PRN PRN Reason: Pain Stop: 02/03/19 16:46 Last Admin: 01/26/19 09:49 Dose: 5 mg Documented by: Pantoprazole Sodium (Protonix) 40 mg PO DAILY ARLYN Stop: 02/19/19 08:59 Last Admin: 01/26/19 08:14 Dose: 40 mg Documented by: Polyethylene Glycol (Miralax Powder Packet) 34 gm PO DAILY ARLYN Stop: 02/22/19 08:59 Last Admin: 01/26/19 08:15 Dose: 34 gm Documented by: Polyethylene Glycol (Miralax Powder Packet) 17 gm PO Q4H PRN PRN Reason: Constipation Stop: 02/23/19 20:25 Last Admin: 01/25/19 08:47 Dose: 17 gm Documented by: Pregabalin (Lyrica) 75 mg PO TID ARLYN Stop: 02/20/19 20:59 Last Admin: 01/26/19 08:19 Dose: 75 mg Documented by: Sennosides (Senokot) 17.2 mg PO QAM PRN PRN Reason: Constipation Stop: 02/19/19 05:48 Last Admin: 01/25/19 09:55 Dose: 17.2 mg Documented by: Trazodone HCl (Desyrel) 100 mg PO HS ARLYN Stop: 02/20/19 20:59 Last Admin: 01/25/19 20:52 Dose: 100 mg Documented by: Triamterene/HCTZ (Maxzide 37.5/25mg) 1 tab PO DAILY PRN PRN Reason: Fluid Retention Stop: 02/19/19 05:48 Vitamin D (Vitamin D3) 2,000 units PO QAM ARLYN Stop: 02/19/19 08:59 Last Admin: 01/26/19 08:14 Dose: 2,000 units Documented by: PG Care Time/CCT Total # of Minutes Spent Total Time Spent with Patient: Total time spent is greater than 50% in coordination of care (as documented) at patient's floor/unit and/or counseling patient: Resident Activity Tracking Resident Involvement: Resident Care Provided Care Provided: Adult Hospital Medicine (1) Low back pain Back pain laterality: unspecified Chronicity: acute Sciatica presence: without sciatica Qualified Code(s): M54.5 - Low back pain (2) Fever Fever type: unspecified Qualified Code(s): R50.9 - Fever, unspecified (3) Leukocytosis Leukocytosis type: unspecified Qualified Code(s): D72.829 - Elevated white blood cell count, unspecified (4) AMS (altered mental status) Altered mental status type: unspecified Qualified Code(s): R41.82 - Altered mental status, unspecified (5) Constipation Constipation type: slow transit constipation Qualified Code(s): K59.01 - Slow transit constipation
[2019-01-26 12:53] LABS: Lyme IgG CSF NO BANDS DETECTED; Lyme IgM CSF NO BANDS DETECTED
[2019-01-26] MEDS: POLYETHYLENE (MIRALAX) 17 GM PACK PO PRN (13:35)
[2019-01-26] MEDS: MAGNESIUM HYDROXIDE SUSP 30 ML UDC PO PRN (20:30)
[2019-01-26] MEDS: TRAZODONE HCL 100 MG TAB PO SCH (21:22)
[2019-01-27] MEDS: OXYCODONE HCL IR 5 MG TAB (IMMEDIATE RELEASE) PO PRN ×3 (02:10→14:47)
[2019-01-27] MEDS: LEVOTHYROXINE SODIUM 88 MCG TABLET PO SCH ×2 (06:05→08:39)
[2019-01-27 08:22] LABS: Hematocrit (blood only) 29.1 % (37-47); Hemoglobin 8.8 g/dL (12.0-16.0); Mean Corpuscular Hemoglobin 23.7 pg (25-34); Mean Corpuscular Hgb Conc 30.2 g/dL (32-36); Mean Corpuscular Volume 78.4 fL (80-100); Platelet Count 257 K/uL (130-400); RDW Coefficient of Variation 20.5 % (11.5-14.5); RDW Standard Deviation 58.8 fL (36.4-46.3); Red Blood Count 3.71 M/uL (4.2-5.4); White Blood Count 20.91 K/uL (4.8-10.8)
[2019-01-27] MEDS: PREGABALIN 75 MG CAP PO SCH ×3 (08:38→20:55)
[2019-01-27] MEDS: CHOLECALCIFEROL 1,000 UNITS TAB PO SCH (08:38)
[2019-01-27] MEDS: ALLOPURINOL 100 MG TAB PO SCH (08:39)
[2019-01-27] MEDS: PANTOprazole 40 MG TAB PO SCH (08:39)
[2019-01-27] MEDS: DOCUSATE SODIUM 100 MG CAP PO SCH (08:39)
[2019-01-27] MEDS: POLYETHYLENE (MIRALAX) 17 GM PACK PO SCH (08:39)
--- NOTE | 2019-01-27 14:55 | Hospitalist Progress Note ---
Date of Service January 27, 2019 Assessment & Plan (1) AMS (altered mental status): Yessica is a 63-year-old female with a past medical history of metastatic cholangiocarcinoma, hypertension, hypothyroidism, and depression who presented with altered mental status and hypoxia and who was admitted for delirium 2/2 metabolic versus narcosis. Delirium, improved In the setting of pain, insomnia, constipation, and recent initiation of narcotic pain treatment Greatly improved today, alert and well-oriented CTH with naf. MRI with no evidence of acute process or metastasis. Lumbar puncture with some erythrocytes, otherwise bland. Empiric antibiotics on admission was continued Near baseline and clinically stable Pending discharge to rehab/SNF Hypoxia, resolved Chest x-ray with no acute findings Improved with supportive care No oxygen requirement History of emphysema/COPD at baseline Continue albuterol every 4 hours as needed Constipation, improved Continue Colace and MiraLAX PRN Large bowel movement today Chronic pain 2/2 cholangio-carcinoma versus bony mets Chronic thoracic back pain Well-controlled today. Thoracic spine x-ray negative Oxycodone 5 mg 4 times daily as needed, minimize were possible for potential to induce narcosis encephalopathy Continue MANAGER FLIGHT Lyrica and trazodone nightly Chronic leukocytosis History of elevated white blood cell count at baseline Lactate normal, chest x-ray with no acute findings, blood culture x2 with no growth Urine culture negative CSF cultures negative CRP/ESR chronically elevated in the setting of cholangiocarcinoma No change or improvement with antibiotics. Likely reflecting patient's baseline. Antibiotics discontinued Trend fever curve Cholangiocarcinoma Stage IV with liver, peritoneal, and lung metastasis Followed by Dr. Guy at [facility] in [place]. MRCP 12/04/2018: Multifocal hepatic metastatic disease with retroperitoneal spread to the dorsal pancreas and left adrenal gland. CTA 01/01/2019: Enlarging pulmonary and pleural nodular densities compared to prior LFT stable Continue pain control as above Nausea: Compazine IV as needed Receive Xeloda twice daily on a 1 week on 1 week off cycle, next cycle was scheduled 01/22/2019. This is been held at admission. Message with Dr. Guy's office at [facility] was left by primary team QT prolongation, chronic No chest pain Negative opponent Continue to follow clinically Hypertension, well controlled Continue home trimaterene/hydrochlorothiazide Normotensive today Lower extremity edema trimaterene/hydrochlorothiazide as above Chronic anemia 2/2 chronic disease versus bone marrow suppression No acute signs of bleeding Hemoglobin at baseline of 910 Hypothyroidism Sick euthyroid TSH 6.3, free T4 normal Continue MANAGER FLIGHT levothyroxine GERD Continue MANAGER FLIGHT omeprazole Gout Continue MANAGER FLIGHT allopurinol Neuropathy Continue home Lyrica DVT prophylaxis: Chemical prophylaxis contraindicated in the setting of coagulopathy, INR 1.8 baseline CODE STATUS: DNR/DNI Supervising Physician Co-Signing Physician Notes I personally examined the patient and verified all webster points of history and exam, discussed case, and agree with decision making with Dr Jeter. awake and interactive, doing well overall. is having diarrhea now vitals noted nad heent nc at mmm breathing unlabored no pallor or icterus no notable focal neuro deficits at rest delirium / metabolic and toxic encephalopathy of probable multifactorial etiologies -definite factors: pain/lack of sleep/medication effect (morphine) -constipation probably played a role - improving. now with diarrhea - will hold on bowel regimen then cautiously resume once needed so as not to provoke further problems with cycle of constipation/diarrhea -fortunately no brain mets -infectious is seeming far less likely given that she is now off of antibiotics and not looking any worse, nor did she really show any dramatic changes while on antibiotics, nor are we seeing any focal areas of infection. -likely will need some type of SNF level care after discharge since delirium likely to take a while to lift cancer -can likely resume xeloda in near future diarrhea -due to bowel regimen from severe constipation - hold for now, but since constipation was primary problem and pain/meds likely to cause this again - will need to continue bowel regimen as a chronic part of her management. otherwise as above ~35min phone call w Paramjit /ZHEN hendricks approx [phone] answered all questions to the best of my ability. Review of Systems Review of Systems: Constitutional: Denies fever, chills, malaise Eyes: Denies Vision change ENT: Denies ear pain, sore throat Cardiovascular: Denies chest pain, chest pressure, palpitations. Endorses leg swelling at baseline Respiratory: Denies shortness of breath, cough, sputum production, difficulty breathing Gastrointestinal: Denies abdominal pain, nausea, vomiting, constipation. Endorses a large bowel movement today. Genitourinary: Denies pain with urination, urinary urgency, urinary frequency Musculoskeletal: Endorses chronic back pain Neurological: Denies headache, numbness, tingling, focal weakness Physical Exam Physical Exam: General: A&Ox3. NAD. Cooperative. HEENT: Atraumatic, normocephalic. Pulm: CTAB A&P. -wheezes, -rales, -rhonchi. Symmetrical chest rise. No increase work of breathing. No respiratory distress. Cardiac: RRR, -mrg. Radial pulses intact and symmetrical. Abdominal: Nontender, nondistended, soft. BS present. Extremities: 2+ LE edema to the knees bilaterally. Homans negative. No calf tenderness. Results & Data Vital Signs (Past 12 Hours) Vital Signs Temp Pulse Pulse Resp BP Pulse Ox 01/27/19 11:33 36.8 C 118 H 16 118/70 96 01/27/19 07:10 86 01/27/19 07:00 36.9 C 100 H 20 107/69 92 01/27/19 06:28 91 H 14 90 PG Care Time/CCT Total # of Minutes Spent Total Time Spent with Patient: Total time spent is greater than 50% in coordination of care (as documented) at patient's floor/unit and/or counseling patient: Prolonged Care Time Prolonged Care Time: Yes Total Prolonged Care Time: 35 Resident Activity Tracking Resident Involvement: Resident Care Provided Care Provided: Adult Hospital Medicine Critical Care Time Prolonged Care Time Prolonged Care Time: Yes Total Prolonged Care Time: 35 indirect time code - phone call with dtr so was not physically in the room (1) AMS (altered mental status) Altered mental status type: unspecified Qualified Code(s): R41.82 - Altered mental status, unspecified
[2019-01-27] MEDS: TRAZODONE HCL 100 MG TAB PO SCH (20:55)
[2019-01-27 23:02] LABS: Appearance Urine Clear (Clear); Bacteria Urine Automated Negative (Negative); Blood Urine Negative (Negative); Color Urine Orange; Glucose Urine UA Negative (Negative); Ketones Urine Negative (Negative); Leukocyte Esterase Urine 1+ (Negative); Nitrite Urine Positive (Negative); Protein Urine 1+ (Negative); RBC Urine Automated 0-4 /hpf (0-4); Specific Gravity Urine 1.025 (1.000-1.030); Urobilinogen Urine Negative (Negative)
[2019-01-27 23:04] LABS: Bilirubin Urine 1+ (Negative); Ictotest Urine Positive (Negative)
[2019-01-27] MEDS: ACETAMINOPHEN 325 MG TAB PO PRN (23:18)
[2019-01-28] MEDS: OXYCODONE HCL IR 5 MG TAB (IMMEDIATE RELEASE) PO PRN ×3 (05:36→20:48)
[2019-01-28] MEDS: LEVOTHYROXINE SODIUM 88 MCG TABLET PO SCH (05:42)
[2019-01-28 07:18] LABS: Hematocrit (blood only) 30.6 % (37-47); Hemoglobin 9.6 g/dL (12.0-16.0); Mean Corpuscular Hemoglobin 24.7 pg (25-34); Mean Corpuscular Hgb Conc 31.4 g/dL (32-36); Mean Corpuscular Volume 78.7 fL (80-100); Mean Platelet Volume 10.1 fL (7.4-10.4); Platelet Count 265 K/uL (130-400); RDW Coefficient of Variation 20.7 % (11.5-14.5); RDW Standard Deviation 58.6 fL (36.4-46.3); Red Blood Count 3.89 M/uL (4.2-5.4); White Blood Count 22.65 K/uL (4.8-10.8)
[2019-01-28 07:52] LABS: BUN Creatinine Ratio 22.6 (10-20); Calcium 9.1 mg/dl (8.5-10.1); Creatinine Clr Calc Pharmacy 113.2 ml/min; Est GFR (African American) 114.8
[2019-01-28] MEDS: PREGABALIN 75 MG CAP PO SCH ×3 (08:40→20:48)
[2019-01-28] MEDS: ACETAMINOPHEN 325 MG TAB PO PRN (08:40)
[2019-01-28] MEDS: PANTOprazole 40 MG TAB PO SCH (08:40)
[2019-01-28] MEDS: ALLOPURINOL 100 MG TAB PO SCH (08:41)
[2019-01-28] MEDS: CHOLECALCIFEROL 1,000 UNITS TAB PO SCH (08:41)
--- NOTE | 2019-01-28 09:57 | Hospitalist Progress Note ---
Date of Service January 28, 2019 Assessment & Plan (1) AMS (altered mental status): Yessica is a 63-year-old female with a past medical history of metastatic cholangiocarcinoma, hypertension, hypothyroidism, and depression who presented with altered mental status and hypoxia and who was admitted for delirium 2/2 metabolic versus narcosis. Delirium, intermittent In the setting of pain, insomnia, constipation, and recent initiation of narcotic pain treatment - Urinary retention ?UTI as below CTH with naf. MRI with no evidence of acute process or metastasis. Lumbar puncture with some erythrocytes, otherwise bland. Pending discharge to rehab/SNF Urinary Retention, ?UTI - 800cc drained on straight cath last night, unable to void x2 this morning with >700cc urine on bladder scan - Straight cath Q6H if bladder scan >300cc, trial of void before cath - UA without bacteria but +LE, +protein - UC pending - Empiric Rocephin 1g Q24H - Transiently febrile overnight with chronic leukocytosis. CBC daily, trend fever curve Hypoxia, resolved Chest x-ray with no acute findings Improved with supportive care No oxygen requirement History of emphysema/COPD at baseline Continue albuterol every 4 hours as needed Constipation, improved Continue Colace and MiraLAX PRN Large bowel movement today Chronic pain 2/2 cholangio-carcinoma versus bony mets Chronic thoracic back pain Adequately ontrolled today. Thoracic spine x-ray negative Oxycodone 5 mg 4 times daily as needed, minimize were possible for potential to induce narcosis encephalopathy Continue PLASTER TENDER Lyrica and trazodone nightly Chronic leukocytosis History of elevated white blood cell count at baseline Lactate normal, chest x-ray with no acute findings, blood culture x2 with no growth Urine culture negative CSF cultures negative CRP/ESR chronically elevated in the setting of cholangiocarcinoma Trend fever curve Cholangiocarcinoma Stage IV with liver, peritoneal, and lung metastasis Followed by Dr. Guy at [facility] in [place]. MRCP 12/04/2018: Multifocal hepatic metastatic disease with retroperitoneal spread to the dorsal pancreas and left adrenal gland. CTA 01/01/2019: Enlarging pulmonary and pleural nodular densities compared to prior LFT stable Continue pain control as above Nausea: Compazine IV as needed Receive Xeloda twice daily on a 1 week on 1 week off cycle, next cycle was scheduled 01/22/2019. This is been held at admission. Message with Dr. Guy's office at [facility] was left by primary team QT prolongation, chronic No chest pain Negative opponent Continue to follow clinically Hypertension, well controlled Continue home trimaterene/hydrochlorothiazide Normotensive today Lower extremity edema trimaterene/hydrochlorothiazide as above Chronic anemia 2/2 chronic disease versus bone marrow suppression No acute signs of bleeding Hemoglobin at baseline of 910 Hypothyroidism Sick euthyroid TSH 6.3, free T4 normal Continue PLASTER TENDER levothyroxine GERD Continue PLASTER TENDER omeprazole Gout Continue PLASTER TENDER allopurinol Neuropathy Continue home Lyrica DVT prophylaxis: Chemical prophylaxis contraindicated in the setting of coagulopathy, INR 1.8 baseline CODE STATUS: DNR/DNI Supervising Physician Co-Signing Physician Notes I personally examined the patient and verified all webster points of history and exam, discussed case, and agree with decision making with Dr Jeter. awake and interactive, upset about diarrhea. has urinary retention. vitals noted nad heent nc at mmm breathing unlabored no pallor or icterus no notable focal neuro deficits at rest delirium / metabolic and toxic encephalopathy of probable multifactorial etiologies -definite factors: pain/lack of sleep/medication effect (morphine) -constipation probably played a role - improved. now with diarrhea - contiue to hold on bowel regimen then cautiously resume once needed so as not to provoke further problems with cycle of constipation/diarrhea -fortunately no brain mets -will need some type of rehab/SNF level care after discharge since delirium likely to take a while to lift cancer -can likely resume xeloda in near future (once diarrhea resolves) diarrhea -due to bowel regimen from severe constipation - hold for now, but since constipation was primary problem and pain/meds likely to cause this again - will need to continue bowel regimen as a chronic part of her management. discussed with pt and family that allowing diarrhea to self resolve safer than adding bowel-slowing agents and risking creating a cycle of constipation/alternating/diarrhea urinary retention -with low grade temp (although admittedly this could also be related to her cancer) and new urinary retention - have to assume UTI - rodrigo since diarrhea almost certainly has pelvic floor more heavily colonized. culture pending, started rocephin, straight cath prn venous stasis edema - explained extensively. anticipate this improving with more movement dispo - needs rehab/SNF. family [facility]. depending on urine cutlure and status of urinary retention, as well as status of diarrhea, hopefully able to go for more PT either tomorrow or tuesday when approved otherwise as above time in room ~1110a, time out ~1140a extensive face to face time answering all of patient and family's questions Subjective Yessica is sitting up in bed eating breakfast at time of exam. She is fatigued, and discouraged by her difficulty urinating, fluctuating delirium, and overall feelings of weakness. No fever, chills, sweats. No abdominal pain, no dysuria, endorses urinary retention overnight. She feels at her normal mental baseline this morning, but fatigued. Continues to have sudden, loose diarrhea/bowel movements. She has no shortness of breath, chest pain, or dyspnea. She was able to get up with physical therapy this morning. Review of Systems Review of Systems: Constitutional: Denies fever, chills. Endorses global fatigue. Eyes: Denies vision change ENT: Denies ear pain, sore throat Cardiovascular: Denies chest pain, chest pressure, palpitations. Endorses leg swelling at baseline Respiratory: Denies shortness of breath, cough, sputum production, difficulty breathing Gastrointestinal: Denies abdominal pain, nausea, vomiting, constipation. +diarrhea Genitourinary: Denies pain with urination, urinary urgency, urinary frequency. Endorses urinary retention. Musculoskeletal: Endorses chronic back pain Neurological: Denies headache, numbness, tingling Physical Exam Physical Exam: General: A&Ox3. NAD. Cooperative. HEENT: Atraumatic, normocephalic. Pulm: CTAB A&P. -wheezes, -rales, -rhonchi. Symmetrical chest rise. No increase work of breathing. No respiratory distress. Cardiac: RRR, -mrg. Radial pulses intact and symmetrical. Abdominal: Softly distended, NT. BS present. Extremities: 2+ LE edema to the knees bilaterally. Homans negative. No calf tenderness. Results & Data Vital Signs (Past 12 Hours) Vital Signs Temp Pulse Pulse Resp BP Pulse Ox 01/28/19 07:40 86 01/28/19 07:00 36.5 C 98 H 16 103/65 94 01/28/19 00:11 37.4 C 01/28/19 00:00 113 H 01/27/19 22:58 37.8 C H 110 H 18 105/65 91 PG Care Time/CCT Total # of Minutes Spent Total Time Spent with Patient: Total time spent is greater than 50% in coordination of care (as documented) at patient's floor/unit and/or counseling patient: Resident Activity Tracking Resident Involvement: Resident Care Provided Care Provided: Adult Hospital Medicine (1) AMS (altered mental status) Altered mental status type: unspecified Qualified Code(s): R41.82 - Altered mental status, unspecified
[2019-01-28] MEDS: cefTRIAXone SODIUM 2,000 MG in DEXTROSE 5% 50 ML IV SCH (11:28)
--- NOTE | 2019-01-28 17:15 | Hospitalist Progress Note ---
Date of Service January 28, 2019 Subjective note created simply due to forgetting to add prolonged service time to shared note with dr cardona. thank you. Results & Data Vital Signs (Past 12 Hours) Vital Signs Temp Pulse Pulse Resp BP Pulse Ox 01/28/19 15:00 97.9 F 78 18 113/78 97 01/28/19 07:40 86 01/28/19 07:00 97.7 F 98 H 16 103/65 94 PG Care Time/CCT Total # of Minutes Spent Total Time Spent with Patient: Total time spent is greater than 50% in coordination of care (as documented) at patient's floor/unit and/or counseling patient: Prolonged Care Time Prolonged Care Time: Yes Total Prolonged Care Time: 30 Critical Care Time Prolonged Care Time Prolonged Care Time: Yes Total Prolonged Care Time: 30 see progress note same date
[2019-01-28] MEDS: TRAZODONE HCL 100 MG TAB PO SCH (20:49)
[2019-01-29] MEDS: OXYCODONE HCL IR 5 MG TAB (IMMEDIATE RELEASE) PO PRN ×3 (02:42→22:28)
[2019-01-29] MEDS: LEVOTHYROXINE SODIUM 88 MCG TABLET PO SCH (06:42)
[2019-01-29 06:59] LABS: Hematocrit (blood only) 28.8 % (37-47); Mean Corpuscular Hgb Conc 31.3 g/dL (32-36); Mean Corpuscular Volume 76.8 fL (80-100); Mean Platelet Volume 10.4 fL (7.4-10.4); Platelet Count 282 K/uL (130-400); RDW Coefficient of Variation 20.6 % (11.5-14.5); RDW Standard Deviation 57.3 fL (36.4-46.3); Red Blood Count 3.75 M/uL (4.2-5.4); White Blood Count 22.19 K/uL (4.8-10.8)
[2019-01-29 07:34] LABS: BUN Creatinine Ratio 24.7 (10-20); Calcium 8.7 mg/dl (8.5-10.1); Creatinine Clr Calc Pharmacy 100.2 ml/min; Est GFR (African American) 110.3; Est GFR (Non-African American) 95.1; Potassium 4.1 mmol/L (3.5-5.1)
[2019-01-29] MEDS: CHOLECALCIFEROL 1,000 UNITS TAB PO SCH (08:34)
[2019-01-29] MEDS: ALLOPURINOL 100 MG TAB PO SCH (08:34)
[2019-01-29] MEDS: PANTOprazole 40 MG TAB PO SCH (08:34)
[2019-01-29] MEDS: PREGABALIN 75 MG CAP PO SCH ×3 (08:34→20:10)
[2019-01-29] MEDS: cefTRIAXone SODIUM 2,000 MG in DEXTROSE 5% 50 ML IV SCH (11:33)
--- NOTE | 2019-01-29 14:23 | Family Medicine Progress Note ---
Date of Service January 29, 2019 Assessment & Plan (1) AMS (altered mental status): Yessica is a 63-year-old female with a past medical history of metastatic cholangiocarcinoma, hypertension, hypothyroidism, and depression who presented with altered mental status and hypoxia and who was admitted for delirium 2/2 metabolic versus narcosis. Delirium, intermittent In the setting of pain, insomnia, constipation, and recent initiation of narcotic pain treatment - Urinary retention ?UTI as below CTH with naf. MRI with no evidence of acute process or metastasis. Lumbar puncture with some erythrocytes, otherwise bland. Pending discharge to rehab/SNF Urinary Retention, ?UTI - 800cc drained on straight cath last night, unable to void x2 this morning with >700cc urine on bladder scan - Straight cath Q6H if bladder scan >300cc, trial of void before cath - UA without bacteria but +LE, +protein - Urine cx- no growth prelim - Empiric Rocephin 1g Q24H. Will dc pending final urine cx - Afebrile overnight with chronic leukocytosis. CBC daily, trend fever curve Diarrhea -due to bowel regimen from severe constipation - hold for now -Since constipation was primary problem and pain/meds likely to cause this aga in, will need to continue bowel regimen as a chronic part of her management and allow diarrhea to self resolve Hypoxia, resolved Chest x-ray with no acute findings Improved with supportive care No oxygen requirement History of emphysema/COPD at baseline Continue albuterol every 4 hours as needed Constipation, improved As above, holding Colace and MiraLAX PRN Chronic pain 2/2 cholangio-carcinoma versus bony mets Chronic thoracic back pain Adequately controlled today. 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 Guy at [facility] in [place]. MRCP 12/04/2018: Multifocal hepatic metastatic disease with retroperitoneal spread to the dorsal pancreas and left adrenal gland. CTA 01/01/2019: Enlarging pulmonary and pleural nodular densities compared to prior LFT stable Continue pain control as above Nausea: Compazine IV as needed Receive Xeloda twice daily on a 1 week on 1 week off cycle, next cycle was scheduled 01/22/2019. This is been held at admission. Will resume once diarrhea resolves. Message with Dr. 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 Family [facility], then [facility]. Do not want [facility]. Supervising Physician Co-Signing Physician Notes I saw the patient concur with the resident physician and confirmed the webster portions of the history and physical exam. I agree with the impression and plan as noted in the resident documentation. Upon examination, the patient is awake; she answers questions appropriately. There is a friend also sleeping in the room whom the patient awakens to participate in the discussion. delirium / metabolic and toxic encephalopathy of probable multifactorial etiologies In review notes and talking to previous providers, this waxes and wanes. She is pretty good this morning which would be expected; will monitor for evidence of owning. We will need to find a balance between appropriate pain control and medication side effects Metastatic cholangiocarcinoma Consider resuming Xeloda if loose stool does not return tomorrow urinary retention Patient is on Rocephin currently and urine culture collected yesterday is pending Continue PRN straight cath Disposition is pending evaluation from [facility] versus [facility], although it sounds as if family favors the former. Subjective 63 yo F found in bed this AM in NAD. No reported overnight events. Reports of poor PO intake today. Bladder scan today showed ~700 ml, olivia put in place. Pt discouraged by her difficulty urinating. She feels at her normal mental baseline this morning. She was able to get up with physical therapy this morning. Case discussed with family. Pending placement at [facility]. No other acute concerns or complaints. Review of Systems Review of Systems: All systems reviewed & are unremarkable except as noted in HPI & below Physical Exam Constitutional: WD/WN, vitals as above Eyes: PERRL, conjunctivae normal, anicteric sclerae ENMT: external ear and nose normal, oropharynx normal Respiratory: normal respiratory effort, lungs clear to auscultation Cardiovascular: RRR, no murmur, no edema Gastrointestinal (Abdomen): normal bowel sounds, soft, nontender, no hepatosplenomegaly Skin: no rashes, warm and dry Psychiatric: A+Ox3, euthymic affect Lymphatic: 2+ LE edema Results & Data Vital Signs (Past 12 Hours) Vital Signs Temp Pulse Resp BP Pulse Ox 01/29/19 07:00 36.8 C 110 H 20 113/75 93 Laboratory Results Laboratory Results - last 24 hr 01/29/19 01/29/19 06:37 06:37 WBC 22.19 H RBC 3.75 L Hgb 9.0 L Hct 28.8 L MCV 76.8 L MCH 24.0 L MCHC 31.3 L RDW Std Deviation 57.3 H RDW Coeff of Harish 20.6 H Plt Count 282 MPV 10.4 Sodium 134 L Potassium 4.1 Chloride 100 Carbon Dioxide 27 Anion Gap 7.0 BUN 15 Creatinine 0.61 Est Cr Clr Drug Dosing 100.2 Est GFR ( Amer) 110.3 Est GFR (Non-Af Amer) 95.1 BUN/Creatinine Ratio 24.7 H Glucose 89 Calcium 8.7 Medications Administered Current Inpatient Medications Acetaminophen (Tylenol) 650 mg PO Q4H PRN PRN Reason: Pain or Fever Stop: 02/26/19 22:38 Last Admin: 01/28/19 08:40 Dose: 650 mg Documented by: Albuterol (Ventolin Hfa) 2 puffs INH Q4H PRN PRN Reason: Shortness Of Breath Stop: 02/19/19 05:48 Allopurinol (Zyloprim) 100 mg PO QAM [facility] Stop: 02/19/19 08:59 Last Admin: 01/29/19 08:34 Dose: 100 mg Documented by: Capecitabine (Xeloda) 3 ea PO BID [facility] Last Admin: 01/22/19 08:15 Dose: Not Given Documented by: Prochlorperazine 10 mg/ (Syringe) 10 mls @ 5 mls/min IV Q6H PRN PRN Reason: Nausea And Vomiting Stop: 02/19/19 05:48 Ceftriaxone Sodium 2,000 mg/ (Dextrose) 70 mls @ 100 mls/hr IV Q24H [facility]; Protocol Stop: 02/02/19 10:59 Last Infusion: 01/29/19 12:23 Dose: Infused Documented by: Levothyroxine Sodium (Synthroid) 88 mcg PO DAILYBB [facility] Stop: 02/19/19 06:29 Last Admin: 01/29/19 06:42 Dose: 88 mcg Documented by: Magnesium Hydroxide (Milk Of Magnesia) 30 ml PO Q6H PRN PRN Reason: Constipation Stop: 02/23/19 20:25 Last Admin: 01/26/19 20:30 Dose: 30 ml Documented by: Oxycodone HCl (Roxicodone Immediate Rel) 5 mg PO QID PRN PRN Reason: Pain Stop: 02/03/19 16:46 Last Admin: 01/29/19 10:55 Dose: 5 mg Documented by: Pantoprazole Sodium (Protonix) 40 mg PO DAILY [facility] Stop: 02/19/19 08:59 Last Admin: 01/29/19 08:34 Dose: 40 mg Documented by: Polyethylene Glycol (Miralax Powder Packet) 34 gm PO DAILY [facility] Stop: 02/22/19 08:59 Last Admin: 01/27/19 08:39 Dose: 34 gm Documented by: Polyethylene Glycol (Miralax Powder Packet) 17 gm PO Q4H PRN PRN Reason: Constipation Stop: 02/23/19 20:25 Last Admin: 01/26/19 13:35 Dose: 17 gm Documented by: Pregabalin (Lyrica) 75 mg PO TID [facility] Stop: 02/20/19 20:59 Last Admin: 01/29/19 14:05 Dose: 75 mg Documented by: Sennosides (Senokot) 17.2 mg PO QAM PRN PRN Reason: Constipation Stop: 02/19/19 05:48 Last Admin: 01/25/19 09:55 Dose: 17.2 mg Documented by: Trazodone HCl (Desyrel) 100 mg PO HS [facility] Stop: 02/20/19 20:59 Last Admin: 01/28/19 20:49 Dose: 100 mg Documented by: Triamterene/HCTZ (Maxzide 37.5/25mg) 1 tab PO DAILY PRN PRN Reason: Fluid Retention Stop: 02/19/19 05:48 Last Admin: 01/29/19 14:05 Dose: 1 tab Documented by: Vitamin D (Vitamin D3) 2,000 units PO QAM [facility] Stop: 02/19/19 08:59 Last Admin: 01/29/19 08:34 Dose: 2,000 units Documented by: PG Care Time/CCT Total # of Minutes Spent Total Time Spent with Patient: Total time spent is greater than 50% in coordination of care (as documented) at patient's floor/unit and/or counseling patient: Resident Activity Tracking Resident Involvement: Resident Care Provided Care Provided: Adult Hospital Medicine (1) AMS (altered mental status) Altered mental status type: unspecified Qualified Code(s): R41.82 - Altered mental status, unspecified
[2019-01-29] MEDS: TRAZODONE HCL 100 MG TAB PO SCH (20:10)
[2019-01-30] MEDS: LEVOTHYROXINE SODIUM 88 MCG TABLET PO SCH (05:35)
[2019-01-30] MEDS: ALLOPURINOL 100 MG TAB PO SCH (08:46)
[2019-01-30] MEDS: PANTOprazole 40 MG TAB PO SCH (08:46)
[2019-01-30] MEDS: CHOLECALCIFEROL 1,000 UNITS TAB PO SCH (08:46)
[2019-01-30] MEDS: PREGABALIN 75 MG CAP PO SCH ×3 (08:49→20:25)
[2019-01-30 08:50] LABS: Hematocrit (blood only) 34.9 % (37-47); Hemoglobin 10.9 g/dL (12.0-16.0); Mean Corpuscular Hemoglobin 24.1 pg (25-34); Mean Corpuscular Hgb Conc 31.2 g/dL (32-36); Mean Corpuscular Volume 77.2 fL (80-100); Mean Platelet Volume 10.1 fL (7.4-10.4); Platelet Count 365 K/uL (130-400); RDW Coefficient of Variation 20.8 % (11.5-14.5); RDW Standard Deviation 57.8 fL (36.4-46.3); Red Blood Count 4.52 M/uL (4.2-5.4); White Blood Count 26.04 K/uL (4.8-10.8)
[2019-01-30 09:24] LABS: BUN Creatinine Ratio 20.1 (10-20); Calcium 9.1 mg/dl (8.5-10.1); Creatinine Clr Calc Pharmacy 83.7 ml/min; Est GFR (African American) 100.2; Est GFR (Non-African American) 86.4
[2019-01-30 09:40] LABS: Anisocytosis Present; Basophils # (auto) 0.03 K/uL (0-0.2); Basophils % (auto) 0.1 %; Eosinophils # (auto) 0.19 K/uL (0-0.5); Eosinophils % (auto) 0.7 %; Hypochromasia Present; Immature Granulocytes % (auto) 0.8 %; Lymphocytes # (auto) 1.86 K/uL (1.2-3.4); Lymphocytes % (auto) 7.1 %; Monocytes # (auto) 2.48 K/uL (0.11-0.59); Monocytes % (auto) 9.5 %; Neutrophils # (auto) 21.28 K/uL (1.4-6.5); Neutrophils % (auto) 81.8 %; Target Cells 1+; Toxic Vacuolation 1+
[2019-01-30] MEDS ORDERED: FUROSEMIDE 40 MG/4 ML VIAL IV STA (10:29)
[2019-01-30] MEDS ORDERED: FUROSEMIDE 40 MG in SYRINGE 0 ML IV ONE (11:00)
--- NOTE | 2019-01-30 17:11 | Hospitalist Progress Note ---
Date of Service January 30, 2019 Assessment & Plan (1) AMS (altered mental status): Yessica is a 63-year-old female with a past medical history of metastatic cholangiocarcinoma, hypertension, hypothyroidism, and depression who presented with altered mental status and hypoxia and who was admitted for delirium 2/2 metabolic versus narcosis. Delirium, intermittent -improved In the setting of pain, insomnia, constipation, and recent initiation of narcotic pain treatment - Urinary retention ?UTI as below CTH with naf. MRI with no evidence of acute process or metastasis. Lumbar puncture with some erythrocytes, otherwise bland. Pending discharge to rehab/SNF Urinary Retention, ?UTI -olivia in place as below - Straight cath Q6H if bladder scan >300cc, trial of void before cath - UA without bacteria but +LE, +protein - Urine cx- no growth -dc'd Empiric Rocephin 1g Q24H - Afebrile overnight with chronic leukocytosis. CBC daily, trend fever curve Concern for Fluid overload/Lower extremity edema -reports of getting SOB/dizzy when working with PT this AM when standing up -Lasix 40 mg IV today. Olivia in place. Draining well. Will re-assess need for additional diuretics moving forward -glenys stockings ordered cont trimaterene/hydrochlorothiazide prn Diarrhea -resolved -due to bowel regimen from severe constipation -Since constipation was primary problem and pain/meds likely to cause this again, will need to continue bowel regimen as a chronic part of her management and allow diarrhea to self resolve Hypoxia, resolved Chest x-ray with no acute findings Improved with supportive care No oxygen requirement History of emphysema/COPD at baseline Continue albuterol every 4 hours as needed Constipation, improved cont Colace and MiraLAX PRN Chronic pain 2/2 cholangio-carcinoma versus bony mets Chronic thoracic back pain Adequately controlled today. 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 Guy at [facility] in [place]. MRCP 12/04/2018: Multifocal hepatic metastatic disease with retroperitoneal spread to the dorsal pancreas and left adrenal gland. CTA 01/01/2019: Enlarging pulmonary and pleural nodular densities compared to prior LFT stable Continue pain control as above Nausea: Compazine IV as needed Receive Xeloda twice daily on a 1 week on 1 week off cycle, next cycle was scheduled 01/22/2019. Now resumed since diarrhea resolved Message with Dr. 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 Family prefers [facility], then [facility]. Do not want [facility]. Supervising Physician Co-Signing Physician Notes I saw the patient current resident physician and agree with the impression and plan as noted above with the following additions. Upon examination, the patient is awake; she answers questions appropriately. Her sister is present today. The patient has two complaints; the first is a sense of fullness in her right ear second is increasing lower extremity edema. Examination of the right ear as noted above -no acute findings and suspect some degree of eustachian dysfunction. She has pitting edema bilaterally to about the knees; this has progressed since yesterday. delirium / metabolic and toxic encephalopathy of probable multifactorial etiologies Metastatic cholangiocarcinoma fluid overload/lower extremity edema There is an element of venous stasis as well as some degree of fluid overload; she is greater than 4 L up over her admission She was given 40 mg of IV Lasix this morning and as of 4 PM she had about 1.6 L out Lower extremity GLENYS stockings were applied and upon recheck this after the patient felt better with less edema. Recheck exam tomorrow as well as BMP. Disposition is pending evaluation from [facility] versus [facility], and in a peer to peer review today the patient was denied [facility]. Subjective 63 yo F found in bed this AM in NAD. No reported overnight events. Pt discourag ed by ne in place. She feels at her normal mental baseline this morning. She was able to get up with physical therapy this morning. Case discussed with family. Pending [facility]. Complaints of SOB/dizzyness with PT this AM along with 3 day h/o R ear pain. No other acute concerns or complaints. Review of Systems Review of Systems: All systems reviewed & are unremarkable except as noted in HPI & below Physical Exam Constitutional: WD/WN, vitals as above Eyes: PERRL, conjunctivae normal, anicteric sclerae ENMT: external ear and nose normal, oropharynx normal Respiratory: normal respiratory effort, lungs clear to auscultation Cardiovascular: RRR, no murmur, no edema Gastrointestinal (Abdomen): normal bowel sounds, soft, nontender, no hepatosplenomegaly Skin: no rashes, warm and dry Psychiatric: A+Ox3, euthymic affect Lymphatic: 2+ LE edema Results & Data Vital Signs (Past 12 Hours) Vital Signs Temp Pulse Resp BP BP Pulse Ox 01/30/19 15:41 37.3 C 103 H 20 115/75 97 01/30/19 11:36 96 01/30/19 11:23 36.7 C 89 18 123/78 96 01/30/19 07:17 36.6 C 92 H 20 118/72 94 Laboratory Results Laboratory Results - last 24 hr 01/30/19 01/30/19 08:38 08:38 WBC 26.04 H RBC 4.52 Hgb 10.9 L Hct 34.9 L MCV 77.2 L MCH 24.1 L MCHC 31.2 L RDW Std Deviation 57.8 H RDW Coeff of Harish 20.8 H Plt Count 365 MPV 10.1 Immature Gran % (Auto) 0.8 Neut % (Auto) 81.8 Lymph % (Auto) 7.1 [place] % (Auto) 9.5 Eos % (Auto) 0.7 Baso % (Auto) 0.1 Immature Gran # (Auto) 0.20 H Neut # (Auto) 21.28 H Lymph # (Auto) 1.86 [place] # (Auto) 2.48 H Eos # (Auto) 0.19 Baso # (Auto) 0.03 Toxic Vacuolation 1+ Hypochromasia Present Anisocytosis Present Target Cells 1+ Sodium 132 L Potassium 4.0 Chloride 97 L Carbon Dioxide 23 Anion Gap 12.0 H BUN 15 Creatinine 0.73 Est Cr Clr Drug Dosing 83.7 Est GFR ( Amer) 100.2 Est GFR (Non-Af Amer) 86.4 BUN/Creatinine Ratio 20.1 H Glucose 141 H Calcium 9.1 Medications Administered Current Inpatient Medications Acetaminophen (Tylenol) 650 mg PO Q4H PRN PRN Reason: Pain or Fever Stop: 02/26/19 22:38 Last Admin: 01/28/19 08:40 Dose: 650 mg Documented by: Albuterol (Ventolin Hfa) 2 puffs INH Q4H PRN PRN Reason: Shortness Of Breath Stop: 02/19/19 05:48 Allopurinol (Zyloprim) 100 mg PO QAM [facility] Stop: 02/19/19 08:59 Last Admin: 01/30/19 08:46 Dose: 100 mg Documented by: Capecitabine (Xeloda) 3 ea PO BID [facility] Stop: 02/06/19 09:01 Last Admin: 01/22/19 08:15 Dose: Not Given Documented by: Prochlorperazine 10 mg/ (Syringe) 10 mls @ 5 mls/min IV Q6H PRN PRN Reason: Nausea And Vomiting Stop: 02/19/19 05:48 Levothyroxine Sodium (Synthroid) 88 mcg PO DAILYBB [facility] Stop: 02/19/19 06:29 Last Admin: 01/30/19 05:35 Dose: 88 mcg Documented by: Magnesium Hydroxide (Milk Of Magnesia) 30 ml PO Q6H PRN PRN Reason: Constipation Stop: 02/23/19 20:25 Last Admin: 01/26/19 20:30 Dose: 30 ml Documented by: Oxycodone HCl (Roxicodone Immediate Rel) 5 mg PO QID PRN PRN Reason: Pain Stop: 02/03/19 16:46 Last Admin: 01/29/19 22:28 Dose: 5 mg Documented by: Pantoprazole Sodium (Protonix) 40 mg PO DAILY [facility] Stop: 02/19/19 08:59 Last Admin: 01/30/19 08:46 Dose: 40 mg Documented by: Polyethylene Glycol (Miralax Powder Packet) 34 gm PO DAILY [facility] Stop: 02/22/19 08:59 Last Admin: 01/27/19 08:39 Dose: 34 gm Documented by: Polyethylene Glycol (Miralax Powder Packet) 17 gm PO Q4H PRN PRN Reason: Constipation Stop: 02/23/19 20:25 Last Admin: 01/26/19 13:35 Dose: 17 gm Documented by: Pregabalin (Lyrica) 75 mg PO TID [facility] Stop: 02/20/19 20:59 Last Admin: 01/30/19 15:43 Dose: 75 mg Documented by: Sennosides (Senokot) 17.2 mg PO QAM PRN PRN Reason: Constipation Stop: 02/19/19 05:48 Last Admin: 01/25/19 09:55 Dose: 17.2 mg Documented by: Trazodone HCl (Desyrel) 100 mg PO HS [facility] Stop: 02/20/19 20:59 Last Admin: 01/29/19 20:10 Dose: 100 mg Documented by: Triamterene/HCTZ (Maxzide 37.5/25mg) 1 tab PO DAILY PRN PRN Reason: Fluid Retention Stop: 02/19/19 05:48 Last Admin: 01/29/19 14:05 Dose: 1 tab Documented by: Vitamin D (Vitamin D3) 2,000 units PO QAM [facility] Stop: 02/19/19 08:59 Last Admin: 01/30/19 08:46 Dose: 2,000 units Documented by: PG Care Time/CCT Total # of Minutes Spent Total Time Spent with Patient: Total time spent is greater than 50% in coordination of care (as documented) at patient's floor/unit and/or counseling patient: Resident Activity Tracking Resident Involvement: Resident Care Provided Care Provided: Adult Hospital Medicine (1) AMS (altered mental status) Altered mental status type: unspecified Qualified Code(s): R41.82 - Altered mental status, unspecified
[2019-01-30] MEDS: OXYCODONE HCL IR 5 MG TAB (IMMEDIATE RELEASE) PO PRN (20:26)
[2019-01-30] MEDS: TRAZODONE HCL 100 MG TAB PO SCH (20:27)
[2019-01-31] MEDS: ACETAMINOPHEN 325 MG TAB PO PRN (04:44)
[2019-01-31] MEDS: LEVOTHYROXINE SODIUM 88 MCG TABLET PO SCH (05:34)
[2019-01-31] MEDS: CHOLECALCIFEROL 1,000 UNITS TAB PO SCH (08:56)
[2019-01-31] MEDS: ALLOPURINOL 100 MG TAB PO SCH (08:56)
[2019-01-31] MEDS: PREGABALIN 75 MG CAP PO SCH ×3 (08:56→20:17)
[2019-01-31] MEDS: PANTOprazole 40 MG TAB PO SCH (08:56)
[2019-01-31 12:25] LABS: Basophils # (auto) 0.02 K/uL (0-0.2); Basophils % (auto) 0.1 %; Eosinophils # (auto) 0.22 K/uL (0-0.5); Hematocrit (blood only) 29.5 % (37-47); Hemoglobin 9.1 g/dL (12.0-16.0); Immature Granulocytes # (auto) 0.09 K/uL (0.00-0.02); Immature Granulocytes % (auto) 0.4 %; Lymphocytes # (auto) 2.24 K/uL (1.2-3.4); Lymphocytes % (auto) 9.9 %; Mean Corpuscular Hemoglobin 23.8 pg (25-34); Mean Corpuscular Hgb Conc 30.8 g/dL (32-36); Mean Platelet Volume 10.4 fL (7.4-10.4); Monocytes # (auto) 2.07 K/uL (0.11-0.59); Monocytes % (auto) 9.1 %; Neutrophils # (auto) 18.04 K/uL (1.4-6.5); Neutrophils % (auto) 79.5 %; Platelet Count 290 K/uL (130-400); RDW Coefficient of Variation 20.9 % (11.5-14.5); RDW Standard Deviation 58.1 fL (36.4-46.3); Red Blood Count 3.83 M/uL (4.2-5.4); White Blood Count 22.68 K/uL (4.8-10.8)
[2019-01-31 12:43] LABS: BUN Creatinine Ratio 19.1 (10-20); Calcium 8.6 mg/dl (8.5-10.1); Creatinine Clr Calc Pharmacy 70.4 ml/min; Est GFR (African American) 82.2; Est GFR (Non-African American) 70.9; Potassium 3.6 mmol/L (3.5-5.1)
[2019-01-31 12:53] LABS: Hypochromasia Present; Microcytosis Present; Polychromasia 1+
[2019-01-31] MEDS: CAPECITABINE PO SCH ×2 (13:25→20:18)
[2019-01-31] MEDS ORDERED: FUROSEMIDE 40 MG TAB PO ONE (14:41)
--- NOTE | 2019-01-31 16:49 | Hospitalist Progress Note ---
Date of Service January 31, 2019 Assessment & Plan (1) AMS (altered mental status): Yessica is a 63-year-old female with a past medical history of metastatic cholangiocarcinoma, hypertension, hypothyroidism, and depression who presented with altered mental status and hypoxia and who was admitted for delirium 2/2 metabolic versus narcosis. Delirium, intermittent -improved In the setting of pain, insomnia, constipation, and recent initiation of narcotic pain treatment CTH with naf. MRI with no evidence of acute process or metastasis. Lumbar puncture with some erythrocytes, otherwise bland. Pending discharge to rehab/SNF Urinary Retention, ?UTI -olivia cath removed - Straight cath Q6H if bladder scan >300cc, trial of void before cath - UA without bacteria but +LE, +protein - Urine cx- no growth -dc'd Empiric Rocephin 1g Q24H - Afebrile overnight with chronic leukocytosis. CBC daily, trend fever curve Concern for Fluid overload/Lower extremity edema -reports of getting SOB/dizzy when working with PT at times (likely component of anxiety/panic attack about future course when she is d/c, per pt) -Lasix 20 mg PO today. Will re-assess need for additional diuretics moving forward. 20 meq KCl daily -padmini stockings ordered cont trimaterene/hydrochlorothiazide prn -daily I/O's. Positive 3.7L this admission Diarrhea -resolved -due to bowel regimen from severe constipation -Since constipation was primary problem and pain/meds likely to cause this again, will need to continue bowel regimen as a chronic part of her management and allow diarrhea to self resolve Hypoxia, resolved Chest x-ray with no acute findings Improved with supportive care No oxygen requirement History of emphysema/COPD at baseline Continue albuterol every 4 hours as needed Constipation, improved cont Colace and MiraLAX PRN Chronic pain 2/2 cholangio-carcinoma versus bony mets Chronic thoracic back pain Adequately controlled today. Thoracic spine x-ray negative Oxycodone 5 mg 4 times daily as needed, minimize were possible for potential to induce narcosis encephalopathy Continue INSTRUMENT PERSON Lyrica and trazodone nightly Chronic leukocytosis History of elevated white blood cell count at baseline Lactate normal, chest x-ray with no acute findings, blood culture x2 with no growth Urine culture negative CSF cultures negative CRP/ESR chronically elevated in the setting of cholangiocarcinoma Trend fever curve Cholangiocarcinoma Stage IV with liver, peritoneal, and lung metastasis Followed by Dr. Guy at [facility] in [place]. MRCP 12/04/2018: Multifocal hepatic metastatic disease with retroperitoneal spread to the dorsal pancreas and left adrenal gland. CTA 01/01/2019: Enlarging pulmonary and pleural nodular densities compared to prior LFT stable Continue pain control as above Nausea: Compazine IV as needed Receive Xeloda twice daily on a 1 week on 1 week off cycle, next cycle was scheduled 01/22/2019. Will likely resume once we touch base with Dr. Guy Message with Dr. Guy's office at [facility] was left by primary team QT prolongation, chronic No chest pain Negative opponent Continue to follow clinically Hypertension, well controlled Continue home trimaterene/hydrochlorothiazide Normotensive today Chronic anemia 2/2 chronic disease versus bone marrow suppression No acute signs of bleeding Hemoglobin at baseline of 910 Hypothyroidism Sick euthyroid TSH 6.3, free T4 normal Continue INSTRUMENT PERSON levothyroxine GERD Continue INSTRUMENT PERSON omeprazole Gout Continue INSTRUMENT PERSON allopurinol Neuropathy Continue home Lyrica FEN/GI: Regular Diet DVT prophylaxis: Chemical prophylaxis contraindicated in the setting of coagulopathy, INR 1.8 baseline DNR/DNI Dispo: Pending discharge to rehab/SNF. Family prefers [facility], then [facility]. Do not want [facility]. Supervising Physician Co-Signing Physician Notes I saw the patient concurrent with the resident physician and agree with the impression and plan as noted above with the following additions. delirium / metabolic and toxic encephalopathy of probable multifactorial etiologies, improved Metastatic cholangiocarcinoma fluid overload/lower extremity edema She has less lower extremity edema; her sodium level improved slightly. No evidence of orthostasis Will switch to oral Lasix daily Monitor electrolytes Patient was denied inpatient rehabilitation because she was not deemed medically stable. Discussed with patient and friend at bedside Will discuss with case management regarding disposition. Subjective 63 yo F found in bed this AM in NAD. No reported overnight events. Pt discouraged by olivia in place. She feels at her normal mental baseline this morning. She was able to get up with physical therapy this morning. Case discussed with family. Pending placement at [facility]. [facility] denied. Some ongoing complaints of SOB/dizzyness with PT this AM, improved. No other acute concerns or complaints. Review of Systems Review of Systems: All systems reviewed & are unremarkable except as noted in HPI & below Physical Exam Constitutional: WD/WN, vitals as above Eyes: PERRL, conjunctivae normal, anicteric sclerae ENMT: external ear and nose normal, oropharynx normal Respiratory: normal respiratory effort, lungs clear to auscultation Cardiovascular: RRR, no murmur, no edema Gastrointestinal (Abdomen): normal bowel sounds, soft, nontender, no hepatosplenomegaly Skin: no rashes, warm and dry Psychiatric: A+Ox3, euthymic affect Lymphatic: 1+ LE edema Results & Data Vital Signs (Past 12 Hours) Vital Signs Temp Pulse Resp BP Pulse Ox 01/31/19 15:04 36.6 C 88 20 113/72 96 01/31/19 11:11 36.7 C 89 16 110/75 96 Laboratory Results Laboratory Results - last 24 hr 01/31/19 01/31/19 11:49 11:49 WBC 22.68 H RBC 3.83 L Hgb 9.1 L Hct 29.5 L MCV 77.0 L MCH 23.8 L MCHC 30.8 L RDW Std Deviation 58.1 H RDW Coeff of Harish 20.9 H Plt Count 290 MPV 10.4 Immature Gran % (Auto) 0.4 Neut % (Auto) 79.5 Lymph % (Auto) 9.9 [place] % (Auto) 9.1 Eos % (Auto) 1.0 Baso % (Auto) 0.1 Immature Gran # (Auto) 0.09 H Neut # (Auto) 18.04 H Lymph # (Auto) 2.24 [place] # (Auto) 2.07 H Eos # (Auto) 0.22 Baso # (Auto) 0.02 Polychromasia 1+ Hypochromasia Present Microcytosis Present Sodium 134 L Potassium 3.6 Chloride 97 L Carbon Dioxide 27 Anion Gap 10.0 BUN 17 Creatinine 0.86 Est Cr Clr Drug Dosing 70.4 Est GFR ( Amer) 82.2 Est GFR (Non-Af Amer) 70.9 BUN/Creatinine Ratio 19.1 Glucose 119 H Calcium 8.6 Medications Administered Current Inpatient Medications Acetaminophen (Tylenol) 650 mg PO Q4H PRN PRN Reason: Pain or Fever Stop: 02/26/19 22:38 Last Admin: 01/31/19 04:44 Dose: 650 mg Documented by: Albuterol (Ventolin Hfa) 2 puffs INH Q4H PRN PRN Reason: Shortness Of Breath Stop: 02/19/19 05:48 Allopurinol (Zyloprim) 100 mg PO QAM [facility] Stop: 02/19/19 08:59 Last Admin: 01/31/19 08:56 Dose: 100 mg Documented by: Capecitabine (Xeloda) 3 ea PO BID [facility] Stop: 02/06/19 09:01 Last Admin: 01/31/19 13:25 Dose: Not Given Documented by: Prochlorperazine 10 mg/ (Syringe) 10 mls @ 5 mls/min IV Q6H PRN PRN Reason: Nausea And Vomiting Stop: 02/19/19 05:48 Levothyroxine Sodium (Synthroid) 88 mcg PO DAILYBB [facility] Stop: 02/19/19 06:29 Last Admin: 01/31/19 05:34 Dose: Not Given Documented by: Magnesium Hydroxide (Milk Of Magnesia) 30 ml PO Q6H PRN PRN Reason: Constipation Stop: 02/23/19 20:25 Last Admin: 01/26/19 20:30 Dose: 30 ml Documented by: Oxycodone HCl (Roxicodone Immediate Rel) 5 mg PO QID PRN PRN Reason: Pain Stop: 02/03/19 16:46 Last Admin: 01/30/19 20:26 Dose: 5 mg Documented by: Pantoprazole Sodium (Protonix) 40 mg PO DAILY [facility] Stop: 02/19/19 08:59 Last Admin: 01/31/19 08:56 Dose: 40 mg Documented by: Polyethylene Glycol (Miralax Powder Packet) 34 gm PO DAILY [facility] Stop: 02/22/19 08:59 Last Admin: 01/27/19 08:39 Dose: 34 gm Documented by: Polyethylene Glycol (Miralax Powder Packet) 17 gm PO Q4H PRN PRN Reason: Constipation Stop: 02/23/19 20:25 Last Admin: 01/26/19 13:35 Dose: 17 gm Documented by: Potassium Chloride (Klor-Con M20) 20 meq PO NOW STA Stop: 01/31/19 16:53 Potassium Chloride (Klor-Con M20) 20 meq PO QAM [facility] Stop: 03/03/19 08:59 Pregabalin (Lyrica) 75 mg PO TID [facility] Stop: 02/20/19 20:59 Last Admin: 01/31/19 14:30 Dose: Not Given Documented by: Sennosides (Senokot) 17.2 mg PO QAM PRN PRN Reason: Constipation Stop: 02/19/19 05:48 Last Admin: 01/25/19 09:55 Dose: 17.2 mg Documented by: Trazodone HCl (Desyrel) 100 mg PO HS [facility] Stop: 02/20/19 20:59 Last Admin: 01/30/19 20:27 Dose: 100 mg Documented by: Triamterene/HCTZ (Maxzide 37.5/25mg) 1 tab PO DAILY PRN PRN Reason: Fluid Retention Stop: 02/19/19 05:48 Last Admin: 01/29/19 14:05 Dose: 1 tab Documented by: Vitamin D (Vitamin D3) 2,000 units PO QAM [facility] Stop: 02/19/19 08:59 Last Admin: 01/31/19 08:56 Dose: 2,000 units Documented by: Resident Activity Tracking Resident Involvement: Resident Care Provided Care Provided: Adult Hospital Medicine (1) AMS (altered mental status) Altered mental status type: unspecified Qualified Code(s): R41.82 - Altered mental status, unspecified
[2019-01-31] MEDS ORDERED: POTASSIUM CHLORIDE 20 MEQ TABCR PO STA (16:52)
[2019-01-31] MEDS: OXYCODONE HCL IR 5 MG TAB (IMMEDIATE RELEASE) PO PRN (17:52)
[2019-01-31] MEDS ORDERED: FAMOTIDINE 20 MG TAB PO ONE (18:01)
[2019-01-31] MEDS: TRAZODONE HCL 100 MG TAB PO SCH (20:18)
[2019-01-31] MEDS ORDERED: OXYCODONE HCL IR 5 MG TAB (IMMEDIATE RELEASE) PO STA (20:42)
[2019-02-01] MEDS: OXYCODONE HCL IR 5 MG TAB (IMMEDIATE RELEASE) PO PRN ×2 (04:38→16:07)
[2019-02-01] MEDS: LEVOTHYROXINE SODIUM 88 MCG TABLET PO SCH (05:58)
[2019-02-01 07:04] LABS: Hematocrit (blood only) 31.5 % (37-47); Hemoglobin 9.7 g/dL (12.0-16.0); Mean Corpuscular Hgb Conc 30.8 g/dL (32-36); Mean Corpuscular Volume 77.8 fL (80-100); Mean Platelet Volume 10.4 fL (7.4-10.4); Platelet Count 314 K/uL (130-400); RDW Standard Deviation 58.6 fL (36.4-46.3); Red Blood Count 4.05 M/uL (4.2-5.4); White Blood Count 26.96 K/uL (4.8-10.8)
[2019-02-01 07:31] LABS: BUN Creatinine Ratio 23.8 (10-20); Calcium 8.8 mg/dl (8.5-10.1); Creatinine Clr Calc Pharmacy 82.3 ml/min; Est GFR (African American) 98.5
[2019-02-01 07:37] LABS: Basophils # (auto) 0.04 K/uL (0-0.2); Basophils % (auto) 0.1 %; Eosinophils # (auto) 0.34 K/uL (0-0.5); Eosinophils % (auto) 1.3 %; Hypochromasia Present; Immature Granulocytes # (auto) 0.14 K/uL (0.00-0.02); Immature Granulocytes % (auto) 0.5 %; Lymphocytes # (auto) 2.43 K/uL (1.2-3.4); Monocytes # (auto) 2.48 K/uL (0.11-0.59); Monocytes % (auto) 9.2 %; Neutrophils # (auto) 21.53 K/uL (1.4-6.5); Neutrophils % (auto) 79.9 %
[2019-02-01] MEDS ORDERED: POTASSIUM CHLORIDE 20 MEQ TABCR PO SCH (09:00)
[2019-02-01] MEDS: CHOLECALCIFEROL 1,000 UNITS TAB PO SCH (09:03)
[2019-02-01] MEDS: ALLOPURINOL 100 MG TAB PO SCH (09:03)
[2019-02-01] MEDS: PANTOprazole 40 MG TAB PO SCH (09:03)
[2019-02-01] MEDS: CAPECITABINE PO SCH ×2 (09:04→21:27)
[2019-02-01] MEDS: PREGABALIN 75 MG CAP PO SCH ×3 (09:04→20:40)
--- NOTE | 2019-02-01 12:44 | Hospitalist Progress Note ---
Date of Service February 01, 2019 Assessment & Plan (1) AMS (altered mental status): Yessica is a 63-year-old female with a past medical history of metastatic cholangiocarcinoma, hypertension, hypothyroidism, and depression who presented with altered mental status and hypoxia and who was admitted for delirium 2/2 metabolic versus narcosis. Delirium, intermittent -improved In the setting of pain, insomnia, constipation, and recent initiation of narcotic pain treatment CTH with naf. MRI with no evidence of acute process or metastasis. Lumbar puncture with some erythrocytes, otherwise bland. Pending discharge to rehab/SNF Concern for Fluid overload/Lower extremity edema -reports of getting SOB/dizzy when working with PT at times (likely component of anxiety/panic attack about future course when she is d/c, per pt). No evidence of orthostasis -Lasix 20 mg PO. Will re-assess need for additional diuretics moving forward. 20 meq KCl daily. Na improved. Will cont monitor electrolytes -glenys stockings ordered cont trimaterene/hydrochlorothiazide prn -daily I/O's. Positive 3.9L this admission Constipation cont Colace and MiraLAX PRN -pt had some diarrhea this admission. Since constipation was primary problem and pain/meds likely to cause this again, will need to continue bowel regimen as a chronic part of her management and allow diarrhea to self resolve if happens again Chronic pain 2/2 cholangio-carcinoma versus bony mets Chronic thoracic back pain Adequately controlled today. Thoracic spine x-ray negative Oxycodone 5 mg 4 times daily as needed, minimize were possible for potential to induce narcosis encephalopathy Continue CERTIFIED SURGICAL TECHNOLOGIST Lyrica and trazodone nightly Chronic leukocytosis History of elevated white blood cell count at baseline Lactate normal, chest x-ray with no acute findings, blood culture x2 with no growth Urine culture negative CSF cultures negative CRP/ESR chronically elevated in the setting of cholangiocarcinoma Trend fever curve Cholangiocarcinoma Stage IV with liver, peritoneal, and lung metastasis Followed by Dr. Guy at [facility] in [place]. MRCP 12/04/2018: Multifocal hepatic metastatic disease with retroperitoneal spread to the dorsal pancreas and left adrenal gland. CTA 01/01/2019: Enlarging pulmonary and pleural nodular densities compared to prior LFT stable Continue pain control as above Nausea: Compazine IV as needed Receive Xeloda twice daily on a 1 week on 1 week off cycle, next cycle was scheduled 01/22/2019. Will likely resume once we touch base with Dr. Guy, pending Message with Dr. Guy's office at [facility] was left by primary team QT prolongation, chronic No chest pain Negative opponent Continue to follow clinically Hypertension, well controlled Continue home trimaterene/hydrochlorothiazide Normotensive today Chronic anemia 2/2 chronic disease versus bone marrow suppression No acute signs of bleeding Hemoglobin at baseline of 910 Hypothyroidism Sick euthyroid TSH 6.3, free T4 normal Continue CERTIFIED SURGICAL TECHNOLOGIST levothyroxine GERD Continue CERTIFIED SURGICAL TECHNOLOGIST omeprazole Gout Continue CERTIFIED SURGICAL TECHNOLOGIST allopurinol Neuropathy Continue home Lyrica FEN/GI: Regular Diet DVT prophylaxis: Chemical prophylaxis contraindicated in the setting of coagulopathy, INR 1.8 baseline DNR/DNI Dispo: Pending discharge to rehab/SNF. Family prefers [facility], then [facility]. Do not want [facility]. Supervising Physician Co-Signing Physician Notes I saw the patient concurrent with the resident physician and agree with the impression and plan as noted above with the following additions. delirium / metabolic and toxic encephalopathy of probable multifactorial etiologies, improved Metastatic cholangiocarcinoma fluid overload/lower extremity edema Improved Continue Lasix 20 mg p.o. daily Potassium supplementation as needed GLENYS stockings Plan is discharge for inpatient rehabilitation at [facility] -insurance approval is pending. Subjective 63 yo F found in bed this AM in NAD. No reported overnight events. She feels at her normal mental baseline this morning. She was able to get up with physical therapy this morning. Case discussed with family. Pending placement at [facility]. No other acute concerns or complaints. Review of Systems Review of Systems: All systems reviewed & are unremarkable except as noted in HPI & below Physical Exam Constitutional: WD/WN, vitals as above Eyes: PERRL, conjunctivae normal, anicteric sclerae ENMT: external ear and nose normal, oropharynx normal Respiratory: normal respiratory effort, lungs clear to auscultation Cardiovascular: RRR, no murmur, no edema Gastrointestinal (Abdomen): normal bowel sounds, soft, nontender, no hepat osplenomegaly Skin: no rashes, warm and dry Psychiatric: A+Ox3, euthymic affect Lymphatic: 1+ LE edema Results & Data Vital Signs (Past 12 Hours) Vital Signs Temp Pulse Resp BP Pulse Ox 02/01/19 11:00 36.8 C 71 16 100/56 L 96 02/01/19 07:00 36.6 C 114 H 18 122/83 92 Laboratory Results Laboratory Results - last 24 hr 01/31/19 01/31/19 02/01/19 11:49 11:49 06:21 WBC 26.96 H RBC 4.05 L Hgb 9.7 L Hct 31.5 L MCV 77.8 L MCH 24.0 L MCHC 30.8 L RDW Std Deviation 58.6 H RDW Coeff of Harish 21.0 H Plt Count 314 MPV 10.4 Immature Gran % (Auto) 0.5 Neut % (Auto) 79.9 Lymph % (Auto) 9.0 [place] % (Auto) 9.2 Eos % (Auto) 1.3 Baso % (Auto) 0.1 Immature Gran # (Auto) 0.14 H Neut # (Auto) 21.53 H Lymph # (Auto) 2.43 [place] # (Auto) 2.48 H Eos # (Auto) 0.34 Baso # (Auto) 0.04 Polychromasia 1+ Hypochromasia Present Present Microcytosis Present Sodium 134 L Potassium 3.6 Chloride 97 L Carbon Dioxide 27 Anion Gap 10.0 BUN 17 Creatinine 0.86 Est Cr Clr Drug Dosing 70.4 Est GFR ( Amer) 82.2 Est GFR (Non-Af Amer) 70.9 BUN/Creatinine Ratio 19.1 Glucose 119 H Calcium 8.6 02/01/19 06:21 WBC RBC Hgb Hct MCV MCH MCHC RDW Std Deviation RDW Coeff of Harish Plt Count MPV Immature Gran % (Auto) Neut % (Auto) Lymph % (Auto) [place] % (Auto) Eos % (Auto) Baso % (Auto) Immature Gran # (Auto) Neut # (Auto) Lymph # (Auto) [place] # (Auto) Eos # (Auto) Baso # (Auto) Polychromasia Hypochromasia Microcytosis Sodium 134 L Potassium 4.0 Chloride 97 L Carbon Dioxide 28 Anion Gap 9.0 BUN 18 Creatinine 0.74 Est Cr Clr Drug Dosing 82.3 Est GFR ( Amer) 98.5 Est GFR (Non-Af Amer) 85.0 BUN/Creatinine Ratio 23.8 H Glucose 82 Calcium 8.8 Medications Administered Current Inpatient Medications Acetaminophen (Tylenol) 650 mg PO Q4H PRN PRN Reason: Pain or Fever Stop: 02/26/19 22:38 Last Admin: 01/31/19 04:44 Dose: 650 mg Documented by: Albuterol (Ventolin Hfa) 2 puffs INH Q4H PRN PRN Reason: Shortness Of Breath Stop: 02/19/19 05:48 Allopurinol (Zyloprim) 100 mg PO QAM [facility] Stop: 02/19/19 08:59 Last Admin: 02/01/19 09:03 Dose: 100 mg Documented by: Capecitabine (Xeloda) 3 ea PO BID [facility] Stop: 02/06/19 09:01 Last Admin: 02/01/19 09:04 Dose: Not Given Documented by: Prochlorperazine 10 mg/ (Syringe) 10 mls @ 5 mls/min IV Q6H PRN PRN Reason: Nausea And Vomiting Stop: 02/19/19 05:48 Levothyroxine Sodium (Synthroid) 88 mcg PO DAILYBB [facility] Stop: 02/19/19 06:29 Last Admin: 02/01/19 05:58 Dose: Not Given Documented by: Magnesium Hydroxide (Milk Of Magnesia) 30 ml PO Q6H PRN PRN Reason: Constipation Stop: 02/23/19 20:25 Last Admin: 01/26/19 20:30 Dose: 30 ml Documented by: Oxycodone HCl (Roxicodone Immediate Rel) 5 mg PO QID PRN PRN Reason: Pain Stop: 02/03/19 16:46 Last Admin: 02/01/19 04:38 Dose: 5 mg Documented by: Pantoprazole Sodium (Protonix) 40 mg PO DAILY [facility] Stop: 02/19/19 08:59 Last Admin: 02/01/19 09:03 Dose: 40 mg Documented by: Polyethylene Glycol (Miralax Powder Packet) 34 gm PO DAILY [facility] Stop: 02/22/19 08:59 Last Admin: 01/27/19 08:39 Dose: 34 gm Documented by: Polyethylene Glycol (Miralax Powder Packet) 17 gm PO Q4H PRN PRN Reason: Constipation Stop: 02/23/19 20:25 Last Admin: 01/26/19 13:35 Dose: 17 gm Documented by: Potassium Chloride (Klor-Con M20) 20 meq PO QAM [facility] Stop: 03/03/19 08:59 Last Admin: 02/01/19 09:03 Dose: 20 meq Documented by: Pregabalin (Lyrica) 75 mg PO TID [facility] Stop: 02/20/19 20:59 Last Admin: 02/01/19 09:04 Dose: 75 mg Documented by: Sennosides (Senokot) 17.2 mg PO QAM PRN PRN Reason: Constipation Stop: 02/19/19 05:48 Last Admin: 01/25/19 09:55 Dose: 17.2 mg Documented by: Trazodone HCl (Desyrel) 100 mg PO HS [facility] Stop: 02/20/19 20:59 Last Admin: 01/31/19 20:18 Dose: 100 mg Documented by: Triamterene/HCTZ (Maxzide 37.5/25mg) 1 tab PO DAILY PRN PRN Reason: Fluid Retention Stop: 02/19/19 05:48 Last Admin: 01/29/19 14:05 Dose: 1 tab Documented by: Vitamin D (Vitamin D3) 2,000 units PO QAM [facility] Stop: 02/19/19 08:59 Last Admin: 02/01/19 09:03 Dose: 2,000 units Documented by: Resident Activity Tracking Resident Involvement: Resident Care Provided Care Provided: Adult Hospital Medicine (1) AMS (altered mental status) Altered mental status type: unspecified Qualified Code(s): R41.82 - Altered mental status, unspecified
[2019-02-01] MEDS ORDERED: MECLIZINE HCL 25 MG TAB PO STA (13:42)
[2019-02-01] MEDS: MECLIZINE HCL 25 MG TAB PO STA ×2 (14:38→14:40)
[2019-02-01] MEDS: POLYETHYLENE (MIRALAX) 17 GM PACK PO PRN (16:07)
[2019-02-01] MEDS: TRAZODONE HCL 100 MG TAB PO SCH (20:38)
[2019-02-02] MEDS: OXYCODONE HCL IR 5 MG TAB (IMMEDIATE RELEASE) PO PRN ×4 (00:39→20:34)
[2019-02-02] MEDS: LEVOTHYROXINE SODIUM 88 MCG TABLET PO SCH (05:06)
[2019-02-02 06:47] LABS: Hematocrit (blood only) 31.1 % (37-47); Hemoglobin 9.7 g/dL (12.0-16.0); Mean Corpuscular Hemoglobin 24.3 pg (25-34); Mean Corpuscular Hgb Conc 31.2 g/dL (32-36); Mean Corpuscular Volume 77.9 fL (80-100); Mean Platelet Volume 10.7 fL (7.4-10.4); Platelet Count 327 K/uL (130-400); RDW Coefficient of Variation 21.3 % (11.5-14.5); RDW Standard Deviation 59.8 fL (36.4-46.3); Red Blood Count 3.99 M/uL (4.2-5.4)
[2019-02-02 07:14] LABS: Basophils # (auto) 0.02 K/uL (0-0.2); Basophils % (auto) 0.1 %; Eosinophils # (auto) 0.15 K/uL (0-0.5); Eosinophils % (auto) 0.5 %; Immature Granulocytes # (auto) 0.15 K/uL (0.00-0.02); Immature Granulocytes % (auto) 0.5 %; Lymphocytes # (auto) 1.83 K/uL (1.2-3.4); Lymphocytes % (auto) 6.5 %; Monocytes # (auto) 2.14 K/uL (0.11-0.59); Monocytes % (auto) 7.6 %; Neutrophils # (auto) 23.71 K/uL (1.4-6.5); Neutrophils % (auto) 84.8 %
[2019-02-02 07:20] LABS: Calcium 8.9 mg/dl (8.5-10.1); Creatinine Clr Calc Pharmacy 77.1 ml/min; Est GFR (African American) 89.7; Est GFR (Non-African American) 77.4; Potassium 4.7 mmol/L (3.5-5.1)
[2019-02-02] MEDS: ALLOPURINOL 100 MG TAB PO SCH (09:53)
[2019-02-02] MEDS: POTASSIUM CHLORIDE 10 MEQ TABCR PO SCH (09:53)
[2019-02-02] MEDS: PANTOprazole 40 MG TAB PO SCH (09:53)
[2019-02-02] MEDS: CHOLECALCIFEROL 1,000 UNITS TAB PO SCH (09:53)
[2019-02-02] MEDS: PREGABALIN 75 MG CAP PO SCH ×3 (09:55→20:34)
[2019-02-02] MEDS: SENNA 8.6 MG TAB PO PRN (12:19)
[2019-02-02] MEDS ORDERED: FUROSEMIDE 40 MG TAB PO ONE (13:18)
--- NOTE | 2019-02-02 15:10 | Hospitalist Progress Note ---
Date of Service February 02, 2019 Assessment & Plan (1) AMS (altered mental status): Yessica is a 63-year-old female with a past medical history of metastatic cholangiocarcinoma, hypertension, hypothyroidism, and depression who presented with altered mental status and hypoxia and who was admitted for delirium 2/2 metabolic versus narcosis that is now improved. Now awaiting placement. Delirium, intermittent -improved In the setting of pain, insomnia, constipation, and recent initiation of narcotic pain treatment CTH with naf. MRI with no evidence of acute process or metastasis. Lumbar puncture with some erythrocytes, otherwise bland. Pending discharge to rehab/SNF Concern for Fluid overload/Lower extremity edema -reports of getting SOB/dizzy when working with PT at times (likely component of anxiety/panic attack about future course when she is d/c, per pt). No evidence of orthostasis -Lasix 20 mg PO daily. Will re-assess need for additional diuretics moving forward. 20 meq KCl daily. Will cont monitor electrolytes -padmini stockings ordered cont trimaterene/hydrochlorothiazide prn -daily I/O's. Positive 3.7L this admission Constipation cont Colace and MiraLAX PRN -pt had some diarrhea this admission. Since constipation was primary problem and pain/meds likely to cause this again, will need to continue bowel regimen as a chronic part of her management and allow diarrhea to self resolve if happens again Chronic pain 2/2 cholangio-carcinoma versus bony mets Chronic thoracic back pain Adequately controlled today. Thoracic spine x-ray negative Oxycodone 5 mg 4 times daily as needed, minimize were possible for potential to induce narcosis encephalopathy Continue [employer] Lyrica and trazodone nightly Chronic leukocytosis History of elevated white blood cell count at baseline Lactate normal, chest x-ray with no acute findings, blood culture x2 with no growth Urine culture negative CSF cultures negative CRP/ESR chronically elevated in the setting of cholangiocarcinoma Trend fever curve Cholangiocarcinoma Stage IV with liver, peritoneal, and lung metastasis Followed by Dr. Guy at [facility] in [place]. MRCP 12/04/2018: Multifocal hepatic metastatic disease with retroperitoneal spread to the dorsal pancreas and left adrenal gland. CTA 01/01/2019: Enlarging pulmonary and pleural nodular densities compared to prior LFT stable Continue pain control as above Nausea: Compazine IV as needed Receive Xeloda twice daily on a 1 week on 1 week off cycle, next cycle was scheduled 01/22/2019. Will likely resume once we touch base with Dr. Guy, pending Message with Dr. Guy's office at [place] was left by primary team QT prolongation, chronic No chest pain Negative opponent Continue to follow clinically Hypertension, well controlled held home trimaterene/hydrochlorothiazide, Lasix as above Normotensive today Chronic anemia 2/2 chronic disease versus bone marrow suppression No acute signs of bleeding Hemoglobin at baseline of 910 Hypothyroidism Sick euthyroid TSH 6.3, free T4 normal Continue [employer] levothyroxine GERD Continue [employer] omeprazole Gout Continue [employer] allopurinol Neuropathy Continue home Lyrica FEN/GI: Regular Diet DVT prophylaxis: Chemical prophylaxis contraindicated in the setting of coagulopathy, INR 1.8 baseline DNR/DNI Dispo: Pending discharge to rehab/SNF. Family prefers [facility], then [facility]. Do not want [facility]. Supervising Physician Co-Signing Physician Notes Patient seen and examined with PGY-2 Dr. Perez. Agree with history, exam findings, assessment and plan of care. Admitted with AMS. Improving, but quite deconditioned. Previously living indep endently. Was able to walk in the hallway earlier today, but made her quite tired. Fatigued appearing. 1+ edema of the knee bilaterally. Lungs are clear--no crackles or rales. 1. delirium. Resolved. 2. metastatic cholangiocarcinoma. 3. lower extremity edema. ?some protein malnutrition. Lasix 20mg po. Supplement K. Ambulate as able. Did [id number] for acute rehab, but patient does not meet insurance criteria for this. Family requesting acute rehab/[facility]. Care management aware and we will start the auth process for a SNF--likely [facility]. Appreciate care management assistance with this. She is medically stable for discharge. At this point, we are working on disposition. Subjective 63 yo F found in bed this AM in NAD. No reported overnight events. She feels at her normal mental baseline this morning. Pt states feels tired today. Was only able to walk to corner of hallway today. Case discussed with family. Pending pl acement at [facility]. No other acute concerns or complaints. Review of Systems Review of Systems: All systems reviewed & are unremarkable except as noted in HPI & below Physical Exam Constitutional: WD/WN, vitals as above Eyes: PERRL, conjunctivae normal, anicteric sclerae ENMT: external ear and nose normal, oropharynx normal Respiratory: crackles, worse at bases Cardiovascular: RRR, no murmur, no edema Gastrointestinal (Abdomen): normal bowel sounds, soft, nontender, no hepatosplenomegaly Skin: no rashes, warm and dry Psychiatric: A+Ox3, euthymic affect Lymphatic: trace to 1+ LE edema Results & Data Vital Signs (Past 12 Hours) Vital Signs Temp Pulse Resp BP BP Pulse Ox 02/02/19 12:17 36.8 C 111 H 18 130/72 94 02/02/19 09:37 36.9 C 02/02/19 07:18 39.5 C H 107 H 18 125/82 94 Laboratory Results Laboratory Results - last 24 hr 02/02/19 02/02/19 02/02/19 06:18 06:18 13:47 WBC 28.00 H RBC 3.99 L Hgb 9.7 L Hct 31.1 L MCV 77.9 L MCH 24.3 L MCHC 31.2 L RDW Std Deviation 59.8 H RDW Coeff of Harish 21.3 H Plt Count 327 MPV 10.7 H Immature Gran % (Auto) 0.5 Neut % (Auto) 84.8 Lymph % (Auto) 6.5 Elmore % (Auto) 7.6 Eos % (Auto) 0.5 Baso % (Auto) 0.1 Immature Gran # (Auto) 0.15 H Neut # (Auto) 23.71 H Lymph # (Auto) 1.83 Elmore # (Auto) 2.14 H Eos # (Auto) 0.15 Baso # (Auto) 0.02 Sodium 132 L Potassium 4.7 D Chloride 96 L Carbon Dioxide 25 Anion Gap 11.0 BUN 22 H Creatinine 0.80 Est Cr Clr Drug Dosing 77.1 Est GFR ( Amer) 89.7 Est GFR (Non-Af Amer) 77.4 BUN/Creatinine Ratio 28.0 H Glucose 109 H POC Glucose 139 H Calcium 8.9 Medications Administered Current Inpatient Medications Acetaminophen (Tylenol) 650 mg PO Q4H PRN PRN Reason: Pain or Fever Stop: 02/26/19 22:38 Last Admin: 01/31/19 04:44 Dose: 650 mg Documented by: Albuterol (Ventolin Hfa) 2 puffs INH Q4H PRN PRN Reason: Shortness Of Breath Stop: 02/19/19 05:48 Allopurinol (Zyloprim) 100 mg PO QAM [facility] Stop: 02/19/19 08:59 Last Admin: 02/02/19 09:53 Dose: 100 mg Documented by: Capecitabine (Xeloda) 3 ea PO BID [facility] Last Admin: 02/01/19 21:27 Dose: Not Given Documented by: Furosemide (Lasix) 20 mg PO QAM [facility] Stop: 03/05/19 08:59 Prochlorperazine 10 mg/ (Syringe) 10 mls @ 5 mls/min IV Q6H PRN PRN Reason: Nausea And Vomiting Stop: 02/19/19 05:48 Last Admin: 02/02/19 01:05 Dose: 5 mls/min Documented by: Levothyroxine Sodium (Synthroid) 88 mcg PO DAILYBB [facility] Stop: 02/19/19 06:29 Last Admin: 02/02/19 05:06 Dose: 88 mcg Documented by: Magnesium Hydroxide (Milk Of Magnesia) 30 ml PO Q6H PRN PRN Reason: Constipation Stop: 02/23/19 20:25 Last Admin: 01/26/19 20:30 Dose: 30 ml Documented by: Oxycodone HCl (Roxicodone Immediate Rel) 5 mg PO QID PRN PRN Reason: Pain Stop: 02/03/19 16:46 Last Admin: 02/02/19 12:19 Dose: 5 mg Documented by: Pantoprazole Sodium (Protonix) 40 mg PO DAILY [facility] Stop: 02/19/19 08:59 Last Admin: 02/02/19 09:53 Dose: 40 mg Documented by: Polyethylene Glycol (Miralax Powder Packet) 34 gm PO DAILY [facility] Stop: 02/22/19 08:59 Last Admin: 01/27/19 08:39 Dose: 34 gm Documented by: Polyethylene Glycol (Miralax Powder Packet) 17 gm PO Q4H PRN PRN Reason: Constipation Stop: 02/23/19 20:25 Last Admin: 02/01/19 16:07 Dose: 17 gm Documented by: Potassium Chloride (Klor-Con M10) 10 meq PO QAM [facility] Stop: 03/04/19 08:59 Last Admin: 02/02/19 09:53 Dose: 10 meq Documented by: Pregabalin (Lyrica) 75 mg PO TID [facility] Stop: 02/20/19 20:59 Last Admin: 02/02/19 13:43 Dose: 75 mg Documented by: Sennosides (Senokot) 17.2 mg PO QAM PRN PRN Reason: Constipation Stop: 02/19/19 05:48 Last Admin: 02/02/19 12:19 Dose: 17.2 mg Documented by: Trazodone HCl (Desyrel) 100 mg PO HS [facility] Stop: 02/20/19 20:59 Last Admin: 02/01/19 20:38 Dose: 100 mg Documented by: Triamterene/HCTZ (Maxzide 37.5/25mg) 1 tab PO DAILY PRN PRN Reason: Fluid Retention Stop: 02/19/19 05:48 Last Admin: 01/29/19 14:05 Dose: 1 tab Documented by: Vitamin D (Vitamin D3) 2,000 units PO QAM [facility] Stop: 02/19/19 08:59 Last Admin: 02/02/19 09:53 Dose: 2,000 units Documented by: Resident Activity Tracking Resident Involvement: Resident Care Provided Care Provided: Adult Hospital Medicine (1) AMS (altered mental status) Altered mental status type: unspecified Qualified Code(s): R41.82 - Altered mental status, unspecified
[2019-02-02] MEDS: TRAZODONE HCL 100 MG TAB PO SCH (20:34)
[2019-02-03] MEDS: OXYCODONE HCL IR 5 MG TAB (IMMEDIATE RELEASE) PO PRN ×2 (05:04→16:27)
[2019-02-03] MEDS: LEVOTHYROXINE SODIUM 88 MCG TABLET PO SCH (06:07)
[2019-02-03 07:38] LABS: Hematocrit (blood only) 31.3 % (37-47); Hemoglobin 9.6 g/dL (12.0-16.0); Mean Corpuscular Hemoglobin 23.8 pg (25-34); Mean Corpuscular Hgb Conc 30.7 g/dL (32-36); Mean Corpuscular Volume 77.5 fL (80-100); Mean Platelet Volume 10.3 fL (7.4-10.4); Platelet Count 348 K/uL (130-400); RDW Coefficient of Variation 21.6 % (11.5-14.5); RDW Standard Deviation 59.4 fL (36.4-46.3); Red Blood Count 4.04 M/uL (4.2-5.4); White Blood Count 34.16 K/uL (4.8-10.8)
[2019-02-03 08:04] LABS: BUN Creatinine Ratio 28.7 (10-20); Calcium 8.8 mg/dl (8.5-10.1); Creatinine Clr Calc Pharmacy 69.2 ml/min; Est GFR (African American) 78.8; Potassium 4.5 mmol/L (3.5-5.1)
[2019-02-03 08:07] LABS: Basophils # (auto) 0.04 K/uL (0-0.2); Basophils % (auto) 0.1 %; Eosinophils # (auto) 0.49 K/uL (0-0.5); Eosinophils % (auto) 1.4 %; Immature Granulocytes # (auto) 0.25 K/uL (0.00-0.02); Immature Granulocytes % (auto) 0.7 %; Lymphocytes # (auto) 3.12 K/uL (1.2-3.4); Lymphocytes % (auto) 9.1 %; Microcytosis Present; Monocytes # (auto) 2.52 K/uL (0.11-0.59); Monocytes % (auto) 7.4 %; Neutrophils # (auto) 27.74 K/uL (1.4-6.5); Neutrophils % (auto) 81.3 %; Toxic Vacuolation 1+
[2019-02-03] MEDS: ALLOPURINOL 100 MG TAB PO SCH (08:40)
[2019-02-03] MEDS: CHOLECALCIFEROL 1,000 UNITS TAB PO SCH (08:40)
[2019-02-03] MEDS: PANTOprazole 40 MG TAB PO SCH (08:40)
[2019-02-03] MEDS: POTASSIUM CHLORIDE 10 MEQ TABCR PO SCH (08:41)
[2019-02-03] MEDS: FUROSEMIDE 20 MG TAB PO SCH (08:41)
[2019-02-03] MEDS: PREGABALIN 75 MG CAP PO SCH ×3 (08:44→20:39)
[2019-02-03] MEDS: POLYETHYLENE (MIRALAX) 17 GM PACK PO PRN (13:21)
[2019-02-03] MEDS: SENNA 8.6 MG TAB PO PRN (13:21)
--- NOTE | 2019-02-03 14:31 | Hospitalist Progress Note ---
Date of Service February 03, 2019 Assessment & Plan (1) Delirium: 63-year-old female was admitted on January 20, 2019 for altered mental status. Delirium: In the setting of pain, insomnia, constipation, and recent initiation of narcotic pain treatment. Improved. Head CT and MRI brain both non-acute. LP noted multi-RBCs. - Continued delirium care / reorientation / encouragement. Pending discharge to rehab/SNF. - Was seen briefly by psych liaison, see related notes. Concern for fluid overload/Lower extremity edema: Reports of getting SOB/dizzy when working with PT at times (likely component of anxiety/panic attack about future course when she is d/c, per pt). No evidence of orthostasis. - Lasix 20 mg PO daily for now. KCl 20 mEq daily as well. GLENYS stockings. Held home triamterene/HCTZ. Constipation: On Colace and MiraLAX as needed. Did not have some diarrhea during admission. Likely needs a chronic bowel regimen. 31Oct KUB noted some stool burden without evidence of a bowel obstruction. Ongoing medical issues: - Chronic pain secondary to cholangiocarcinoma vs bony mets, chronic thoracic back pain: Thoracic spine x-ray negative. On oxycodone, Lyrica, trazodone. Trying to avoid potential narcosis encephalopathy. - Chronic leukocytosis: CSF and urine cultures negative. Lactate normal. Chest x-ray clear. Blood cultures without growth. CRP and ESR chronically elevated in the setting of cholangiocarcinoma. - Cholangiocarcinoma: Stage IV with liver, peritoneal, and lung metastasis. Followed by Dr. Guy at [facility] in [place]. MRCP 12/04/2018: Multifocal hepatic metastatic disease with retroperitoneal spread to the dorsal pancreas and left adrenal gland. CTA 01/01/2019: Enlarging pulmonary and pleural nodular densities compared to prior. --- Continue pain control as above. Compazine as needed for nausea. Receive Xeloda twice daily on a 1 week on 1 week off cycle, next cycle was scheduled 01/22/2019. Will likely resume once we touch base with Dr. Guy (Message with Dr. Guy's office at [facility] was left by primary team). - QT prolongation. - Hypertension: Held home triamterene and hydrochlorothiazide. - Chronic anemia 2/2 chronic disease versus bone marrow suppression: No evidence of active bleeding. Baseline hemoglobin 910. - Hypothyroidism: Sick euthyroid. TSH 6.3, free T4 normal. Continue [employer] levothyroxine. - GERD: Continue [employer] omeprazole. - Gout: Continue [employer] allopurinol. - Neuropathy: Continue home Lyrica. Code status: DNR/DNI Diet: Regular Diet DVT prophy: Chemical prophylaxis contraindicated in the setting of coagulopathy, INR 1.8 baseline. PT/OT: See related notes. Disbo: Pending discharge to rehab/SNF. Family prefers [facility], then [facility]. Do not want [facility]. Working on [facility] for now. (2) AMS (altered mental status): (3) Lymphadenopathy: (4) Constipation: (5) Chronic pain: (6) Cholangiocarcinoma: (7) Leukocytosis: (8) QT prolongation: (9) Hypertension: (10) Chronic anemia: (11) Hypothyroidism: (12) GERD (gastroesophageal reflux disease): (13) Gout: (14) Neuropathy: Supervising Physician Co-Signing Physician Notes Patient seen and examined with PGY-3 Dr. Lanza. Agree with history, exam findings, assessment and plan of care. Admitted with AMS. Improving, but quite deconditioned. Previously living independently. Wanting to take a shower, walk in the hallway or move about in the wheelchair. There was concern that she was expressing suicidal ideation. She was seen by the psychiatry liason nurse. Today, she reports wanting to move on, feeling stir-crazy in the hospital room. She is eager to move to [facility]. Her daughter is at the bedside this morning. 1+ edema of the knee bilaterally. Lungs are clear--no crackles or rales. 1. delirium. Resolved. 2. metastatic cholangiocarcinoma. 3. lower extremity edema. ?some protein malnutrition. Lasix 20mg po. Supplement K. Ambulate as able. Discharge planning. Starting auth process and waiting for a bed at [facility]. Appreciate care management (Ruth) hard work on this. She is medically stable for discharge. At this point, we are working on disposition. Subjective Initially found patient lying in bed earlier this morning, awake, and somewhat conversational. Her primary concerns were that she was going "stir crazy" and wanted to get out of this room, preferably to go home. She also wanted her ears checked, stating that time she feels lightheaded as well as vertiginous, mostly with movement such as getting out of bed to the chair. Revisited the patient later in the morning. Again spoke with her and her daughter at bedside. Discussed that she is welcome to have a shower and move about to the hospital in a wheelchair with her daughter. Review of Systems Review of Systems: Per HPI as above. Physical Exam Physical Exam: General Appearance: Awake, alert, quickly fatigable and often closes her eyes during conversations. Does not appear in immediate distress. Ears: Otoscopic evaluation of bilateral ear canals and TMs were unremarkable, specifically no noted TM erythema, bulging, effusion, or canal obstruction. CV: +S1S2 RRR, no murmur. Pulm: Crackles at bases. Abdomen: +BS, soft, non-tender, non-distended. Extremities: 1+ pitting edema in bilateral shins. Can stand with mild assistance though only briefly. Neuro: No gross neuro deficits. Oriented to person, location, city, and Jan 2019. Results & Data Vital Signs (Past 12 Hours) Vital Signs Temp Pulse Resp BP Pulse Ox 02/03/19 11:21 36.8 C 65 20 107/72 98 02/03/19 07:42 36.9 C 107 H 20 104/66 92 02/03/19 04:00 37.1 C 111 H 18 117/75 93 Laboratory Results 02/03/19 02/03/19 Range/Units 07:13 07:13 WBC 34.16 H* (4.8-10.8) K/uL RBC 4.04 L (4.2-5.4) M/uL Hgb 9.6 L (12.0-16.0) g/dL Hct 31.3 L (37-47) % MCV 77.5 L (80-100) fL MCH 23.8 L (25-34) pg MCHC 30.7 L (32-36) g/dL RDW Std Deviation 59.4 H (36.4-46.3) fL RDW Coeff of Harish 21.6 H (11.5-14.5) % Plt Count 348 (130-400) K/uL MPV 10.3 (7.4-10.4) fL Immature Gran % (Auto) 0.7 % Neut % (Auto) 81.3 % Lymph % (Auto) 9.1 % [place] % (Auto) 7.4 % Eos % (Auto) 1.4 % Baso % (Auto) 0.1 % Immature Gran # (Auto) 0.25 H (0.00-0.02) K/uL Neut # (Auto) 27.74 H (1.4-6.5) K/uL Lymph # (Auto) 3.12 (1.2-3.4) K/uL [place] # (Auto) 2.52 H (0.11-0.59) K/uL Eos # (Auto) 0.49 (0-0.5) K/uL Baso # (Auto) 0.04 (0-0.2) K/uL Toxic Vacuolation 1+ Microcytosis Present Sodium 133 L (136-145) mmol/L Potassium 4.5 (3.5-5.1) mmol/L Chloride 96 L (98-107) mmol/L Carbon Dioxide 29 (21-32) mmol/L Anion Gap 9.0 (3-11) BUN 25 H (7-18) mg/dl Creatinine 0.89 (0.6-1.2) mg/dl Est Cr Clr Drug Dosing 69.2 ml/min Est GFR ( Amer) 78.8 Est GFR (Non-Af Amer) 68.0 BUN/Creatinine Ratio 28.7 H (10-20) Glucose 93 (70-99) mg/dl Calcium 8.8 (8.5-10.1) mg/dl Medications Administered Acetaminophen (Tylenol) 650 mg PO Q4H PRN PRN Reason: Pain or Fever Stop: 02/26/19 22:38 Last Admin: 01/31/19 04:44 Dose: 650 mg Documented by: [id number] Admin: 01/28/19 08:40 Dose: 650 mg Documented by: [id number] Admin: 01/27/19 23:18 Dose: 650 mg Documented by: [id number] Allopurinol (Zyloprim) 100 mg PO [facility] Stop: 02/19/19 08:59 Last Admin: 02/03/19 08:40 Dose: 100 mg Documented by: [id number] Admin: 02/02/19 09:53 Dose: 100 mg Documented by: [id number] Admin: 02/01/19 09:03 Dose: 100 mg Documented by: [id number] Admin: 01/31/19 08:56 Dose: 100 mg Documented by: [id number] Admin: 01/30/19 08:46 Dose: 100 mg Documented by: [id number] Admin: 01/29/19 08:34 Dose: 100 mg Documented by: [id number] Admin: 01/28/19 08:41 Dose: 100 mg Documented by: [id number] Admin: 01/27/19 08:39 Dose: 100 mg Documented by: [id number] Admin: 01/26/19 08:14 Dose: 100 mg Documented by: [id number] Admin: 01/25/19 08:48 Dose: 100 mg Documented by: [id number] Admin: 01/24/19 08:49 Dose: 100 mg Documented by: [id number] Admin: 01/23/19 08:21 Dose: 100 mg Documented by: [id number] Admin: 01/22/19 08:17 Dose: 100 mg Documented by: [id number] Admin: 01/21/19 08:52 Dose: 100 mg Documented by: [id number] Admin: 01/20/19 09:09 Dose: 100 mg Documented by: [id number] Capecitabine (Xeloda) 3 ea PO BID [facility] Last Admin: 02/01/19 21:27 Dose: Not Given Documented by: [id number] Admin: 02/01/19 09:04 Dose: Not Given Documented by: [id number] Admin: 01/31/19 20:18 Dose: Not Given Documented by: [id number] Admin: 01/31/19 13:25 Dose: Not Given Documented by: [id number] Admin: 01/22/19 08:15 Dose: Not Given Documented by: [id number] Furosemide (Lasix) 20 mg PO QAM [facility] Stop: 03/05/19 08:59 Last Admin: 02/03/19 08:41 Dose: 20 mg Documented by: [id number] Prochlorperazine 10 mg/ (Syringe) 10 mls @ 5 mls/min IV Q6H PRN PRN Reason: Nausea And Vomiting Stop: 02/19/19 05:48 Last Admin: 02/02/19 01:05 Dose: 5 mls/min Documented by: [id number] Levothyroxine Sodium (Synthroid) 88 mcg PO DAILYBB [facility] Stop: 02/19/19 06:29 Last Admin: 02/03/19 06:07 Dose: 88 mcg Documented by: [id number] Admin: 02/02/19 05:06 Dose: 88 mcg Documented by: [id number] Admin: 02/01/19 05:58 Dose: Not Given Documented by: [id number] Admin: 01/31/19 05:34 Dose: Not Given Documented by: [id number] Admin: 01/30/19 05:35 Dose: 88 mcg Documented by: [id number] Admin: 01/29/19 06:42 Dose: 88 mcg Documented by: [id number] Admin: 01/28/19 05:42 Dose: 88 mcg Documented by: [id number] Admin: 01/27/19 08:39 Dose: 88 mcg Documented by: [id number] Admin: 01/27/19 06:05 Dose: Not Given Documented by: [id number] Admin: 01/26/19 05:37 Dose: 88 mcg Documented by: [id number] Admin: 01/25/19 06:07 Dose: 88 mcg Documented by: [id number] Admin: 01/24/19 08:50 Dose: 88 mcg Documented by: [id number] Admin: 01/23/19 06:36 Dose: 88 mcg Documented by: [id number] Admin: 01/22/19 05:37 Dose: 88 mcg Documented by: [id number] Admin: 01/21/19 05:33 Dose: 88 mcg Documented by: [id number] Admin: 01/20/19 06:32 Dose: 88 mcg Documented by: [id number] Magnesium Hydroxide (Milk Of Magnesia) 30 ml PO Q6H PRN PRN Reason: Constipation Stop: 02/23/19 20:25 Last Admin: 01/26/19 20:30 Dose: 30 ml Documented by: [id number] Admin: 01/24/19 21:10 Dose: 30 ml Documented by: [id number] Oxycodone HCl (Roxicodone Immediate Rel) 5 mg PO QID PRN PRN Reason: Pain Stop: 02/03/19 16:46 Last Admin: 02/03/19 05:04 Dose: 5 mg Documented by: [id number] Admin: 02/02/19 20:34 Dose: 5 mg Documented by: [id number] Admin: 02/02/19 12:19 Dose: 5 mg Documented by: [id number] Admin: 02/02/19 05:06 Dose: 5 mg Documented by: [id number] Admin: 02/02/19 00:39 Dose: 5 mg Documented by: [id number] Admin: 02/01/19 16:07 Dose: 5 mg Documented by: [id number] Admin: 02/01/19 04:38 Dose: 5 mg Documented by: [id number] Admin: 01/31/19 17:52 Dose: 5 mg Documented by: [id number] Admin: 01/30/19 20:26 Dose: 5 mg Documented by: [id number] Admin: 01/29/19 22:28 Dose: 5 mg Documented by: [id number] Admin: 01/29/19 10:55 Dose: 5 mg Documented by: [id number] Admin: 01/29/19 02:42 Dose: 5 mg Documented by: [id number] Admin: 01/28/19 20:48 Dose: 5 mg Documented by: [id number] Admin: 01/28/19 13:04 Dose: 5 mg Documented by: [id number] Admin: 01/28/19 05:36 Dose: 5 mg Documented by: [id number] Admin: 01/27/19 14:47 Dose: 5 mg Documented by: [id number] Admin: 01/27/19 08:46 Dose: 5 mg Documented by: [id number] Admin: 01/27/19 02:10 Dose: 5 mg Documented by: [id number] Admin: 01/26/19 20:30 Dose: 5 mg Documented by: [id number] Admin: 01/26/19 09:49 Dose: 5 mg Documented by: [id number] Admin: 01/25/19 20:52 Dose: 5 mg Documented by: [id number] Admin: 01/24/19 10:42 Dose: 5 mg Documented by: [id number] Admin: 01/23/19 21:22 Dose: 5 mg Documented by: [id number] Admin: 01/22/19 11:43 Dose: 5 mg Documented by: [id number] Admin: 01/22/19 05:50 Dose: 5 mg Documented by: [id number] Admin: 01/21/19 23:41 Dose: 5 mg Documented by: [id number] Pantoprazole Sodium (Protonix) 40 mg PO DAILY [facility] Stop: 02/19/19 08:59 Last Admin: 02/03/19 08:40 Dose: 40 mg Documented by: [id number] Admin: 02/02/19 09:53 Dose: 40 mg Documented by: [id number] Admin: 02/01/19 09:03 Dose: 40 mg Documented by: [id number] Admin: 01/31/19 08:56 Dose: 40 mg Documented by: [id number] Admin: 01/30/19 08:46 Dose: 40 mg Documented by: [id number] Admin: 01/29/19 08:34 Dose: 40 mg Documented by: [id number] Admin: 01/28/19 08:40 Dose: 40 mg Documented by: [id number] Admin: 01/27/19 08:39 Dose: 40 mg Documented by: [id number] Admin: 01/26/19 08:14 Dose: 40 mg Documented by: [id number] Admin: 01/25/19 08:47 Dose: 40 mg Documented by: [id number] Admin: 01/24/19 08:49 Dose: 40 mg Documented by: [id number] Admin: 01/23/19 08:36 Dose: 40 mg Documented by: [id number] Admin: 01/22/19 08:17 Dose: 40 mg Documented by: [id number] Admin: 01/21/19 08:52 Dose: 40 mg Documented by: [id number] Admin: 01/20/19 09:09 Dose: 40 mg Documented by: [id number] Polyethylene Glycol (Miralax Powder Packet) 34 gm PO DAILY [facility] Stop: 02/22/19 08:59 Last Admin: 01/27/19 08:39 Dose: 34 gm Documented by: [id number] Admin: 01/26/19 08:15 Dose: 34 gm Documented by: [id number] Admin: 01/24/19 08:49 Dose: 34 gm Documented by: [id number] Admin: 01/23/19 08:21 Dose: 34 gm Documented by: [id number] Admin: 01/23/19 05:30 Dose: 34 gm Documented by: [id number] Polyethylene Glycol (Miralax Powder Packet) 17 gm PO Q4H PRN PRN Reason: Constipation Stop: 02/23/19 20:25 Last Admin: 02/03/19 13:21 Dose: 17 gm Documented by: [id number] Admin: 02/01/19 16:07 Dose: 17 gm Documented by: [id number] Admin: 01/26/19 13:35 Dose: 17 gm Documented by: [id number] Admin: 01/25/19 08:47 Dose: 17 gm Documented by: [id number] Admin: 01/24/19 21:11 Dose: 17 gm Documented by: [id number] Potassium Chloride (Klor-Con M10) 10 meq PO QAM [facility] Stop: 03/04/19 08:59 Last Admin: 02/03/19 08:41 Dose: 10 meq Documented by: [id number] Admin: 02/02/19 09:53 Dose: 10 meq Documented by: [id number] Pregabalin (Lyrica) 75 mg PO TID [facility] Stop: 02/20/19 20:59 Last Admin: 02/03/19 13:29 Dose: 75 mg Documented by: [id number] Admin: 02/03/19 08:44 Dose: 75 mg Documented by: [id number] Admin: 02/02/19 20:34 Dose: 75 mg Documented by: [id number] Admin: 02/02/19 13:43 Dose: 75 mg Documented by: [id number] Admin: 02/02/19 09:55 Dose: 75 mg Documented by: [id number] Admin: 02/01/19 20:40 Dose: 75 mg Documented by: [id number] Admin: 02/01/19 14:37 Dose: 75 mg Documented by: [id number] Admin: 02/01/19 09:04 Dose: 75 mg Documented by: [id number] Admin: 01/31/19 20:17 Dose: 75 mg Documented by: [id number] Admin: 01/31/19 14:30 Dose: Not Given Documented by: [id number] Admin: 01/31/19 08:56 Dose: 75 mg Documented by: [id number] Admin: 01/30/19 20:25 Dose: 75 mg Documented by: [id number] Admin: 01/30/19 15:43 Dose: 75 mg Documented by: [id number] Admin: 01/30/19 08:49 Dose: 75 mg Documented by: [id number] Admin: 01/29/19 20:10 Dose: 75 mg Documented by: [id number] Admin: 01/29/19 14:05 Dose: 75 mg Documented by: [id number] Admin: 01/29/19 08:34 Dose: 75 mg Documented by: [id number] Admin: 01/28/19 20:48 Dose: 75 mg Documented by: [id number] Admin: 01/28/19 13:32 Dose: 75 mg Documented by: [id number] Admin: 01/28/19 08:40 Dose: 75 mg Documented by: [id number] Admin: 01/27/19 20:55 Dose: 75 mg Documented by: [id number] Admin: 01/27/19 14:47 Dose: 75 mg Documented by: [id number] Admin: 01/27/19 08:38 Dose: 75 mg Documented by: [id number] Admin: 01/26/19 20:30 Dose: 75 mg Documented by: [id number] Admin: 01/26/19 13:32 Dose: 75 mg Documented by: [id number] Admin: 01/26/19 08:19 Dose: 75 mg Documented by: [id number] Admin: 01/25/19 20:52 Dose: 75 mg Documented by: [id number] Admin: 01/25/19 13:42 Dose: 75 mg Documented by: [id number] Cosigned by: [id number] Admin: 01/25/19 08:47 Dose: 75 mg Documented by: [id number] Admin: 01/24/19 21:16 Dose: 75 mg Documented by: [id number] Admin: 01/24/19 14:11 Dose: Not Given Documented by: [id number] Admin: 01/24/19 08:53 Dose: 75 mg Documented by: [id number] Admin: 01/23/19 21:18 Dose: 75 mg Documented by: [id number] Admin: 01/23/19 14:19 Dose: 75 mg Documented by: [id number] Admin: 01/23/19 08:20 Dose: 75 mg Documented by: [id number] Admin: 01/22/19 21:08 Dose: 75 mg Documented by: [id number] Admin: 01/22/19 16:42 Dose: 75 mg Documented by: [id number] Admin: 01/22/19 08:54 Dose: 75 mg Documented by: [id number] Admin: 01/21/19 20:52 Dose: 75 mg Documented by: [id number] Sennosides (Senokot) 17.2 mg PO QAM PRN PRN Reason: Constipation Stop: 02/19/19 05:48 Last Admin: 02/03/19 13:21 Dose: 17.2 mg Documented by: [id number] Admin: 02/02/19 12:19 Dose: 17.2 mg Documented by: [id number] Admin: 01/25/19 09:55 Dose: 17.2 mg Documented by: [id number] Admin: 01/24/19 21:10 Dose: 17.2 mg Documented by: [id number] Trazodone HCl (Desyrel) 100 mg PO HS [facility] Stop: 02/20/19 20:59 Last Admin: 02/02/19 20:34 Dose: 100 mg Documented by: [id number] Admin: 02/01/19 20:38 Dose: 100 mg Documented by: [id number] Admin: 01/31/19 20:18 Dose: 100 mg Documented by: [id number] Admin: 01/30/19 20:27 Dose: 100 mg Documented by: [id number] Admin: 01/29/19 20:10 Dose: 100 mg Documented by: [id number] Admin: 01/28/19 20:49 Dose: 100 mg Documented by: [id number] Admin: 01/27/19 20:55 Dose: 100 mg Documented by: [id number] Admin: 01/26/19 21:22 Dose: 100 mg Documented by: [id number] Admin: 01/25/19 20:52 Dose: 100 mg Documented by: [id number] Admin: 01/24/19 21:25 Dose: Not Given Documented by: [id number] Admin: 01/23/19 21:18 Dose: 100 mg Documented by: [id number] Admin: 01/22/19 21:15 Dose: Not Given Documented by: [id number] Admin: 01/21/19 20:52 Dose: 100 mg Documented by: [id number] Triamterene/HCTZ (Maxzide 37.5/25mg) 1 tab PO DAILY PRN PRN Reason: Fluid Retention Stop: 02/19/19 05:48 Last Admin: 01/29/19 14:05 Dose: 1 tab Documented by: [id number] Vitamin D (Vitamin D3) 2,000 units PO QAM [facility] Stop: 02/19/19 08:59 Last Admin: 02/03/19 08:40 Dose: 2,000 units Documented by: [id number] Admin: 02/02/19 09:53 Dose: 2,000 units Documented by: [id number] Admin: 02/01/19 09:03 Dose: 2,000 units Documented by: [id number] Admin: 01/31/19 08:56 Dose: 2,000 units Documented by: [id number] Admin: 01/30/19 08:46 Dose: 2,000 units Documented by: [id number] Admin: 01/29/19 08:34 Dose: 2,000 units Documented by: [id number] Admin: 01/28/19 08:41 Dose: 2,000 units Documented by: [id number] Admin: 01/27/19 08:38 Dose: 2,000 units Documented by: [id number] Admin: 01/26/19 08:14 Dose: 2,000 units Documented by: [id number] Admin: 01/25/19 08:47 Dose: 2,000 units Documented by: [id number] Admin: 01/24/19 08:50 Dose: 2,000 units Documented by: [id number] Admin: 01/23/19 08:21 Dose: 2,000 units Documented by: [id number] Admin: 01/22/19 08:18 Dose: 2,000 units Documented by: [id number] Admin: 01/21/19 08:52 Dose: 2,000 units Documented by: [id number] Admin: 01/20/19 09:09 Dose: 2,000 units Documented by: [id number] Discontinued Medications Bisacodyl (Dulcolax) 10 mg [place] NOW STA Stop: 01/23/19 13:17 Last Admin: 01/23/19 14:10 Dose: 10 mg Documented by: [id number] Docusate Sodium (Colace) 100 mg PO BID [facility] Stop: 02/19/19 08:59 Last Admin: 01/27/19 08:39 Dose: 100 mg Documented by: [id number] Admin: 01/26/19 20:30 Dose: 100 mg Documented by: [id number] Admin: 01/26/19 08:15 Dose: 100 mg Documented by: [id number] Admin: 01/25/19 20:52 Dose: 100 mg Documented by: [id number] Admin: 01/25/19 08:47 Dose: 100 mg Documented by: [id number] Admin: 01/24/19 21:10 Dose: 100 mg Documented by: [id number] Admin: 01/24/19 08:50 Dose: 100 mg Documented by: [id number] Admin: 01/23/19 21:18 Dose: 100 mg Documented by: [id number] Admin: 01/23/19 08:21 Dose: 100 mg Documented by: [id number] Admin: 01/22/19 21:08 Dose: 100 mg Documented by: [id number] Admin: 01/22/19 08:18 Dose: 100 mg Documented by: [id number] Admin: 01/21/19 20:53 Dose: 100 mg Documented by: [id number] Admin: 01/21/19 08:52 Dose: 100 mg Documented by: [id number] Admin: 01/20/19 20:42 Dose: 100 mg Documented by: [id number] Admin: 01/20/19 09:09 Dose: 100 mg Documented by: [id number] Famotidine (Pepcid) 20 mg PO NOW ONE Stop: 01/31/19 18:02 Last Admin: 01/31/19 18:26 Dose: 20 mg Documented by: [id number] Furosemide (Lasix) 20 mg PO NOW ONE Stop: 01/31/19 14:42 Last Admin: 01/31/19 15:55 Dose: 20 mg Documented by: [id number] Furosemide (Lasix) 20 mg PO NOW ONE Stop: 02/02/19 13:19 Last Admin: 02/02/19 13:43 Dose: 20 mg Documented by: [id number] Gadobutrol (Gadavist 65ml) 8 ml IV ONCE PRN PRN Reason: Interaction Checking Stop: 01/26/19 23:52 Last Admin: 01/22/19 23:32 Dose: 8 ml Documented by: [id number] Hydromorphone HCl (Dilaudid) 1 mg IV NOW STA Stop: 01/20/19 12:08 Last Admin: 01/20/19 12:55 Dose: Not Given Documented by: [id number] Hydromorphone HCl (Dilaudid) 0.5 mg IV NOW STA Stop: 01/20/19 12:08 Last Admin: 01/20/19 12:47 Dose: 0.5 mg Documented by: [id number] Sodium Chloride (Nss) 500 mls @ 999 mls/hr IV .Q31M ONE Stop: 01/20/19 01:44 Last Infusion: 01/20/19 02:09 Dose: 0 mls/hr Documented by: [id number] Admin: 01/20/19 01:37 Dose: 999 mls/hr Documented by: [id number] Ceftriaxone Sodium 2,000 mg/ (Dextrose) 70 mls @ 100 mls/hr IV Q12H [facility]; Protocol Stop: 01/24/19 05:59 Last Infusion: 01/23/19 19:46 Dose: 0 mls/hr Documented by: [id number] Admin: 01/23/19 18:57 Dose: 100 mls/hr Documented by: [id number] Infusion: 01/23/19 07:13 Dose: 0 mls/hr Documented by: [id number] Admin: 01/23/19 06:31 Dose: 100 mls/hr Documented by: [id number] Infusion: 01/22/19 18:51 Dose: 0 mls/hr Documented by: [id number] Admin: 01/22/19 17:48 Dose: 100 mls/hr Documented by: [id number] Infusion: 01/22/19 06:24 Dose: 0 mls/hr Documented by: [id number] Admin: 01/22/19 05:42 Dose: 100 mls/hr Documented by: [id number] Infusion: 01/21/19 18:43 Dose: 0 mls/hr Documented by: [id number] Admin: 01/21/19 17:57 Dose: 100 mls/hr Documented by: [id number] Vancomycin HCl 2,000 mg/ (Sodium Chloride) 540 mls @ 200 mls/hr IV TODAY@1545 [facility]; Protocol Stop: 01/21/19 21:41 Last Infusion: 01/21/19 22:29 Dose: 0 mls/hr Documented by: [id number] Admin: 01/21/19 18:38 Dose: 200 mls/hr Documented by: [id number] Vancomycin HCl 1,500 mg/ (Sodium Chloride) 530 mls @ 200 mls/hr IV Q12H [facility]; Protocol Stop: 01/24/19 06:59 Last Infusion: 01/24/19 02:28 Dose: 0 mls/hr Documented by: [id number] Infusion: 01/23/19 22:20 Dose: 100 mls/hr Documented by: [id number] Infusion: 01/23/19 19:46 Dose: 0 mls/hr Documented by: [id number] Admin: 01/23/19 19:35 Dose: 150 mls/hr Documented by: [id number] Infusion: 01/23/19 12:00 Dose: 0 mls/hr Documented by: [id number] Admin: 01/23/19 08:20 Dose: 150 mls/hr Documented by: [id number] Infusion: 01/22/19 22:36 Dose: 0 mls/hr Documented by: [id number] Admin: 01/22/19 19:25 Dose: 200 mls/hr Documented by: [id number] Infusion: 01/22/19 09:15 Dose: 0 mls/hr Documented by: [id number] Admin: 01/22/19 06:21 Dose: 200 mls/hr Documented by: [id number] Lorazepam (Ativan) 1 mg in 2 mls @ 2 mls/min IV NOW STA Stop: 01/22/19 22:26 Last Admin: 01/22/19 22:49 Dose: 2 mls/min Documented by: [id number] Potassium Chloride (K Pool / Wtr) 10 meq in 100 mls @ 100 mls/hr IV Q1H [facility] Stop: 01/24/19 12:59 Last Infusion: 01/24/19 15:53 Dose: 0 mls/hr Documented by: [id number] Admin: 01/24/19 14:10 Dose: 75 mls/hr Documented by: [id number] Infusion: 01/24/19 14:10 Dose: 75 mls/hr Documented by: [id number] Admin: 01/24/19 14:09 Dose: 75 mls/hr Documented by: [id number] Infusion: 01/24/19 12:50 Dose: 75 mls/hr Documented by: [id number] Admin: 01/24/19 11:21 Dose: 75 mls/hr Documented by: [id number] Infusion: 01/24/19 10:51 Dose: 75 mls/hr Documented by: [id number] Admin: 01/24/19 09:51 Dose: 100 mls/hr Documented by: [id number] Ceftriaxone Sodium 2,000 mg/ (Dextrose) 70 mls @ 100 mls/hr IV Q24H AUREA; Protocol Stop: 02/02/19 10:59 Last Infusion: 01/29/19 12:23 Dose: 0 mls/hr Documented by: [id number] Admin: 01/29/19 11:33 Dose: 100 mls/hr Documented by: [id number] Infusion: 01/28/19 12:27 Dose: 0 mls/hr Documented by: [id number] Admin: 01/28/19 11:28 Dose: 100 mls/hr Documented by: [id number] Furosemide 40 mg/ Syringe 4 mls @ 4 mls/min IV NOW ONE Stop: 01/30/19 11:01 Last Admin: 01/30/19 11:49 Dose: 4 mls/min Documented by: [id number] Meclizine HCl (Antivert) 25 mg PO NOW STA Stop: 02/01/19 13:43 Last Admin: 02/01/19 15:21 Dose: Not Given Documented by: [id number] Meclizine HCl (Antivert) 12.5 mg PO NOW STA Stop: 02/01/19 14:01 Last Admin: 02/01/19 14:40 Dose: 12.5 mg Documented by: [id number] Miscellaneous (Order Awaiting Action) 1 ea N/A QS AUREA Stop: 02/19/19 05:59 Last Admin: 01/20/19 15:28 Dose: 1 ea Documented by: [id number] Admin: 01/20/19 09:08 Dose: Not Given Documented by: [id number] Admin: 01/20/19 06:44 Dose: 1 ea Documented by: [id number] Oxycodone HCl (Roxicodone Immediate Rel) 5 mg PO Q4H PRN PRN Reason: Pain Stop: 02/03/19 16:46 Last Admin: 01/21/19 08:52 Dose: 5 mg Documented by: [id number] Admin: 01/20/19 22:16 Dose: 5 mg Documented by: [id number] Admin: 01/20/19 18:00 Dose: 5 mg Documented by: [id number] Oxycodone HCl (Roxicodone Immediate Rel) 10 mg PO NOW STA Stop: 01/21/19 01:14 Last Admin: 01/21/19 01:19 Dose: 10 mg Documented by: [id number] Oxycodone HCl (Roxicodone Immediate Rel) 5 mg PO NOW STA Stop: 01/31/19 20:43 Last Admin: 01/31/19 21:05 Dose: 5 mg Documented by: [id number] Polyethylene Glycol (Miralax Powder Packet) 17 gm PO DAILY AUREA Stop: 02/19/19 08:59 Last Admin: 01/22/19 08:18 Dose: 17 gm Documented by: [id number] Admin: 01/21/19 08:53 Dose: 17 gm Documented by: [id number] Admin: 01/20/19 09:10 Dose: 17 gm Documented by: [id number] Polyethylene Glycol (Miralax Powder Packet) 17 gm PO Q1H AUREA Stop: 02/22/19 18:59 Last Admin: 01/24/19 03:13 Dose: Not Given Documented by: [id number] Admin: 01/24/19 02:30 Dose: 17 gm Documented by: [id number] Admin: 01/24/19 00:58 Dose: Not Given Documented by: [id number] Admin: 01/24/19 00:57 Dose: Not Given Documented by: [id number] Admin: 01/24/19 00:57 Dose: Not Given Documented by: [id number] Admin: 01/23/19 22:18 Dose: Not Given Documented by: [id number] Admin: 01/23/19 21:18 Dose: 17 gm Documented by: [id number] Admin: 01/23/19 21:12 Dose: Not Given Documented by: [id number] Admin: 01/23/19 19:30 Dose: 17 gm Documented by: [id number] Potassium Chloride (Klor-Con M20) 20 meq PO NOW STA Stop: 01/31/19 16:53 Last Admin: 01/31/19 17:50 Dose: 20 meq Documented by: [id number] Potassium Chloride (Klor-Con M20) 20 meq PO QAM AUREA Stop: 03/03/19 08:59 Last Admin: 02/01/19 09:03 Dose: 20 meq Documented by: [id number] Pregabalin (Lyrica) 75 mg PO BID AUREA Stop: 02/20/19 10:29 Last Admin: 01/21/19 11:44 Dose: 75 mg Documented by: [id number] Sodium Biphosphate/Sodium Phosphate (Fleet Enema) 132 ml [place] NOW STA Stop: 01/23/19 15:41 Last Admin: 01/23/19 16:36 Dose: 132 ml Documented by: [id number] Resident Activity Tracking Resident Involvement: Resident Care Provided Care Provided: Adult Hospital Medicine (1) Gout Chronicity: unspecified Gout etiology: unspecified cause Gout site: unspecified site Qualified Code(s): M10.9 - Gout, unspecified (2) Chronic pain Chronic pain type: chronic pain syndrome Qualified Code(s): G89.4 - Chronic pain syndrome (3) Hypothyroidism Hypothyroidism type: acquired Qualified Code(s): E03.9 - Hypothyroidism, unspecified (4) Leukocytosis Leukocytosis type: other Qualified Code(s): D72.828 - Other elevated white blood cell count (5) AMS (altered mental status) Altered mental status type: unspecified Qualified Code(s): R41.82 - Altered mental status, unspecified (6) GERD (gastroesophageal reflux disease) Esophagitis presence: esophagitis presence not specified Qualified Code(s): K21.9 - Gastro-esophageal reflux disease without esophagitis
[2019-02-03] MEDS: TRAZODONE HCL 100 MG TAB PO SCH (20:39)
[2019-02-04] MEDS: OXYCODONE HCL IR 5 MG TAB (IMMEDIATE RELEASE) PO PRN ×3 (00:03→18:53)
[2019-02-04] MEDS: LEVOTHYROXINE SODIUM 88 MCG TABLET PO SCH (06:22)
[2019-02-04] MEDS: ALLOPURINOL 100 MG TAB PO SCH (08:07)
[2019-02-04] MEDS: CHOLECALCIFEROL 1,000 UNITS TAB PO SCH (08:07)
[2019-02-04] MEDS: PANTOprazole 40 MG TAB PO SCH (08:07)
[2019-02-04] MEDS: POTASSIUM CHLORIDE 10 MEQ TABCR PO SCH (08:08)
[2019-02-04] MEDS: FUROSEMIDE 20 MG TAB PO SCH (08:08)
[2019-02-04] MEDS: MAGNESIUM HYDROXIDE SUSP 30 ML UDC PO PRN (08:38)
[2019-02-04] MEDS: PREGABALIN 75 MG CAP PO SCH ×3 (08:38→20:17)
--- NOTE | 2019-02-04 09:57 | Psychiatric Consultation ---
Date of Consultation February 04, 2019 Impression / Recommendations Impression 63-year-old female admitted medically on 01/20/19 after presenting to the ED with altered mental status, sedation, and difficulty getting around her home. Pt had been doing well prior to an ER visit on 01/18/19 for complaints of back pain. Pt was admitted medically for work-up to determine etiology of AMS. 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 Pt's responses to questions are delayed, and she seems to be uncertain of how she is feeling. She appeared sedated during encounter and responses were brief. Productivity of visit with the patient herself lacked productivity at specific time of the encounter. Pt did provider permission for this provider and psychiatric nurse liaison to speak with her daughter separately. Pt's daughter is requesting medication that may be beneficial for her mother's mood, as she admits she has been appearing depressed and flat for at least the past month. Daughter admits the patient appears significantly more depressed since being admitted to the hospital, but believes this to be a long- standing issue. Pt had prior adverse reactions to low-dose sertraline and escitalopram (dizziness, slurred speech, and confusion). Daughter states the patient had not yet started the prescription for duloxetine, prescribed 01/19/19. Duloxetine should be used with caution in patient's with hepatic impairment, and given metastasis to liver it may be better to avoid this medication presently. Daughter inquired about fluoxetine, which would ideally help with improving mood and energy - but there is concern regarding the long half-life of the medication and potential for reduced plasma clearance. Of the more energizing antidepressant agents, bupropion seems to be the mildest option given concern for hepatic impairment due to metastasis to liver. Would suggest utilizing a dose of 100mg bupropion qAM if patient is agreeable to initiation of a medication to target depressive symptoms. Dr. Sylvia Sharif was directly involved in review and discussion of the patient's case and participated in medical decision making regarding treatment recommendations. RECOMMENDATIONS: 02/04 - Consider initiation of bupropion SR 100mg qAM for depression - Recommended outpatient therapy, which patient declines presently; daughter provided with booklet of mental health services in [facility] - Pt does verbalize desire to , stating she would like to "kill myself", but is unable to verbalize plan. Safety planning reviewed with daughter, who denies concerns related to patient potentially acting on these thoughts/desires. Crisis services included in mental health booklet. No indication that patiashleigh t's current condition is amenable to inpatient psychiatric treatment - Continue conversations with palliative care to discuss end of life wishes and encourage communication between patient and family members - Appreciate the opportunity to participate in the care of this patient Psych History Identifying Data 63-year-old female admitted medically on 01/20/19 due to reports of altered mental status and hypoxia, with concern for possible stroke. Pt has a history of metastatic cholangiocarcinoma, with spread to with liver, peritoneal, and lung. Psychiatric consultation was requested to evaluate patient for depression. Information is gathered from hospital documentation, patient's daughter, and the patient herself - the combination of which is considered to be reliable. Chief Complaint "Not good. I don't really know." History of Present Illness Yessica Booth is a 63-year-old female admitted medically on 01/20/19 due to concerns for altered mental status, hypoxia, and sedation. PMH includes metastatic cholangiocarcinoma, HTN, hypothyroidism, depression, and chronic back pain. Pt was reportedly brought to the ED on 01/18/19 due to exacerbation of back pain, and received "two doses of morphine." It was reported that prior to the exacerbation of her back pain, the patient had been at her baseline. She was admitted due to AMS, and is reportedly demonstrating some improvement in cognition since the time of her admission. Psychiatric consultation was requested to evaluate patient for "depression". Patient's case was reviewed and discussed with supervising psychiatrist and psychiatric nurse liaison during morning report. Pt is cooperative with interview, though is unable to participate to a productive level. She answers questions, but after significant delay and often with vague, uncertain answers. When asked about her mood, patient initially says she is "good", then states "I don't know", then states "ok." Although she admits to understanding the questions, her responses are rather vague, and she is observed to be drifting off to sleep rather frequently during our interview. Pt is observed while sitting upright in a bedside chair, episodically with her mouth agape and head drifting back as if falling asleep. Pt is able to verbalize that she is having thoughts of life not being worth living and desire pass on. She states she has thoughts "to kill myself", but after multiple questions, does not verbalize a specific plan or intent. Patient is currently being visited by her daughter, son-in-law, and a good friend. She gives permission for this provider to speak with her daughter in the hallway privately, in order to gather additional history. Daughter, Judi, states that her mother had been demonstrating increased signs of depression for the past several weeks, especially after the of the patient's sister in 12/2018 due to cancer. Daughter states the patient and her sister were "really close", and daughter had noticed significantly lower mood in the patient since her passing. Daughter states that her mother is "very sensitive to medications", and has experienced dizziness with recent prescription of escitalopram and confusion/slurred speech when sertraline had been initiated in combination with Fentanyl. Pt was recently prescribed duloxetine, but family was informed by a pharmacist that it should not be taken in combination with Lyrica, which the patient was also prescribed. Prescription for duloxetine was filled on 01/19/19, but has reportedly not been taken. Daughter states that she is worried her mother has given up hope of getting back to the condition she had been in a few weeks ago. She reports realization that her mother is "tired of fighting", but states her expression of suicidal ideation has worsened over the course of this admission. Daughter admits that while she is concerned to hear her mother make these statements, she does not believe that her mother would actually follow though with any actions to harm herself or end her life. Daughter verbalizes hope that her mother would be willing to take an antidepressant medication to "help her snap out of this." We discussed ideally utilizing a medication which would improve energy level, while also targeting depressed mood. Daughter questions if fluoxetine would be a good option for her mother. This, in addition to consideration for bupropion, were reviewed - along with risk of utilizing these medications given patient's cancer metastasis to her liver. Daughter verbalizes understanding and states she will speak with her mother about medications and about therapy, which the patient is currently declining. Past Psychiatric History Previous Psych History: Per daughter, patient has dealt with depression in the past, "but never this bad." Has had trial of several different antidepressant medications. No known history of suicide attempts. Outpatient Services: None Previous Psych Admissions: None known Past Medication Trials: Per daughter: 1. Zoloft - confusion, slurred speech (in combination with Fentanyl, added at the same time) 2. Lexapro - dizziness 3. Cymbalta - prescribed, but not taken due to concern for potential i nteractions with Lyrica Allergies Allergy/AdvReac Type Severity Reaction Status Date / Time metoclopramide Allergy Intermediate FACIAL AND Verified 01/20/19 01:47 FEET SWELLING, BONE PAIN silicone Allergy Intermediate SKIN MIRANDA Verified 01/20/19 01:47 celecoxib Allergy Mild RASH Verified 01/20/19 01:47 valsartan Allergy Unknown Verified 01/20/19 01:47 escitalopram AdvReac Severe Dizziness Unverified 02/04/19 15:52 fentanyl AdvReac Severe Arm Unverified 01/20/19 01:47 Numbness atorvastatin AdvReac Intermediate headaches Verified 01/20/19 01:47 acetaminophen [From Tylenol] AdvReac Mild Liver Unverified 01/20/19 01:47 Issues sertraline AdvReac Unknown Unknown Unverified 02/04/19 15:52 Home Medications Home Medications Medication Instructions Recorded Confirmed Type prochlorperazine maleate 10 mg PO Q6H PRN 09/09/18 01/20/19 History albuterol sulfate HFA 90 2 puff INHALATION Q4H PRN gm 11/30/18 01/20/19 History mcg/actuation aerosol inhaler cholecalciferol (vitamin D3) 1,000 2,000 units PO QAM cap 11/30/18 01/20/19 History unit capsule oxycodone 5 - 10 mg PO Q4H PRN 01/01/19 01/20/19 History polyethylene glycol 3350 [Miralax] 17 g PO DAILY PRN 01/01/19 01/20/19 History allopurinol 100 mg PO QAM 01/18/19 01/20/19 History levothyroxine 88 mcg PO QAM 01/18/19 01/20/19 History sennosides [Senokot] 17.2 mg PO QAM PRN 01/18/19 01/20/19 History Capecitaline 1,500 mg PO DIRECTED 01/20/19 01/20/19 History omeprazole 20 mg PO DAILY 01/20/19 01/20/19 History pregabalin [Lyrica] 75 mg PO TID 01/20/19 01/20/19 History trazodone 100 mg PO HS 01/20/19 01/20/19 History triamterene-hydrochlorothiazid 1 tab PO DAILY PRN 01/20/19 01/20/19 History Personal History Marital Status: Number Of Children: 2 daughters Patient History Medical History Severe sepsis (Acute) Lung cancer (Chronic) s/p left lower lobectomy Neuropathy (Chronic) [place] feet Asthma (Chronic) Chronic obstructive pulmonary disease (Chronic) never uses inhaler Gout (Chronic) Hypothyroid (Chronic) Hypertension (Chronic) Hyperlipidemia (Chronic) GERD (gastroesophageal reflux disease) (Chronic) Hiatal hernia (Chronic) Anxiety (Chronic) Depression (Chronic) Borderline diabetes mellitus (Chronic) Fatty liver Osteoarthritis (Chronic) Cholangiocarcinoma (Chronic) diagnosed 2018 - followed by [facility] Encounter for pre-operative examination (Resolved) Port-A-Cath in place Surgical History History of lobectomy of lung (Chronic) left lower lobe. [facility] 05/04/17. MAC 3, ETT 7.5, no issues noted in anesthesia record. H/O exploratory laparotomy (Resolved) for abdominal pain, found hiatal hernia History of arthroscopy of right knee (Resolved) History of cataract surgery (Resolved) History of section (Resolved) History of colonoscopy (Resolved) History of esophagogastroduodenoscopy (EGD) (Resolved) History of laminectomy (Resolved) History of surgery (Resolved) removal of "eccrine" gland History of total abdominal hysterectomy and bilateral salpingo-oophorectomy (Resolved) Hx of cholecystectomy (Resolved) History of laparoscopy 05/2018 [facility] - lymph node biopsy, liver biopsy Family History Brother Family history of lung cancer Sister Family history of lung cancer sister Family history of kidney cancer Family history of skin cancer Family history of breast cancer Family history of uterine cancer Family history of ovarian cancer Mother , age 89 "old age" No problems noted. 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 [employer] Feels Safe at Home: Yes Smoking Status: Former smoker (QUIT 2003, SMOKED FOR 25 YEARS) Tobacco Type: cigarettes ; Cigarettes Per Day: 10 ; Second Hand Exposure: No ; Hx Alcohol Use: No Hx Substance Use: No Physical Exam Psychiatric: Orientation: alert and oriented to person Apperance: appropriately dressed (in hospital gown) and + disheveled; + did not appear stated age (appearing significantly older than stated age) Appearing cachectic, appears to be in and out of sleep while sitting up in chair, mouth remains open for most of conversation, with some drooling noted Eye Contact: + fair eye contact Motor Behavior: no abnormal motor movements (observed while sitting upright in bedside chair) Speech: + abnormal rate/rhythm/volume of speech (soft tone, delayed response to questions, brief answers) Affect: + flat affect and mood congruent with affect Mood: + depressed mood ("Not good") Thought Process: goal directed thought process and + concrete thought process Thought Content: reality based without delusions Suicidal Thoughts: + reports suicidal thoughts Pt verbalizes a desire to be . States she has had thoughts to "kill myself", but does not verbalize a specific plan when asked. Homicidal Thoughts: denies homicidal thoughts Cognition: language grossly intact; + attention not intact Insight: + fair insight Judgement: + fair judgement Vital Signs (Past 24 Hours): Last Vital Signs Temp 37.0 C 02/04/19 07:23 Pulse 110 H 02/04/19 07:23 Resp 20 02/04/19 07:23 BP 115/77 02/04/19 07:23 Pulse Ox 91 02/04/19 07:23 Review of Systems Constitutional: reports fatigue Cardiovascular: denied Respiratory: denied Gastrointestinal: reports lack of appetite Neurological: denied Psychiatric: denies symptoms other than stated above Total of at least 10 systems reviewed, pertinent positives as above and in HPI. Results & Data Medications Administered Acetaminophen (Tylenol) 650 mg PO Q4H PRN PRN Reason: Pain or Fever Stop: 02/26/19 22:38 Last Admin: 01/31/19 04:44 Dose: 650 mg Documented by: [id number] Admin: 01/28/19 08:40 Dose: 650 mg Documented by: [id number] Admin: 01/27/19 23:18 Dose: 650 mg Documented by: [id number] Allopurinol (Zyloprim) 100 mg PO QAM [facility] Stop: 02/19/19 08:59 Last Admin: 02/04/19 08:07 Dose: 100 mg Documented by: [id number] Admin: 02/03/19 08:40 Dose: 100 mg Documented by: [id number] Admin: 02/02/19 09:53 Dose: 100 mg Documented by: [id number] Admin: 02/01/19 09:03 Dose: 100 mg Documented by: [id number] Admin: 01/31/19 08:56 Dose: 100 mg Documented by: [id number] Admin: 01/30/19 08:46 Dose: 100 mg Documented by: [id number] Admin: 01/29/19 08:34 Dose: 100 mg Documented by: [id number] Admin: 01/28/19 08:41 Dose: 100 mg Documented by: [id number] Admin: 01/27/19 08:39 Dose: 100 mg Documented by: [id number] Admin: 01/26/19 08:14 Dose: 100 mg Documented by: [id number] Admin: 01/25/19 08:48 Dose: 100 mg Documented by: [id number] Admin: 01/24/19 08:49 Dose: 100 mg Documented by: [id number] Admin: 01/23/19 08:21 Dose: 100 mg Documented by: [id number] Admin: 01/22/19 08:17 Dose: 100 mg Documented by: [id number] Admin: 01/21/19 08:52 Dose: 100 mg Documented by: [id number] Admin: 01/20/19 09:09 Dose: 100 mg Documented by: [id number] Capecitabine (Xeloda) 3 ea PO BID [facility] Last Admin: 02/01/19 21:27 Dose: Not Given Documented by: [id number] Admin: 02/01/19 09:04 Dose: Not Given Documented by: [id number] Admin: 01/31/19 20:18 Dose: Not Given Documented by: [id number] Admin: 01/31/19 13:25 Dose: Not Given Documented by: [id number] Admin: 01/22/19 08:15 Dose: Not Given Documented by: [id number] Furosemide (Lasix) 20 mg PO QAM [facility] Stop: 03/05/19 08:59 Last Admin: 02/04/19 08:08 Dose: 20 mg Documented by: [id number] Admin: 02/03/19 08:41 Dose: 20 mg Documented by: [id number] Prochlorperazine 10 mg/ (Syringe) 10 mls @ 5 mls/min IV Q6H PRN PRN Reason: Nausea And Vomiting Stop: 02/19/19 05:48 Last Admin: 02/02/19 01:05 Dose: 5 mls/min Documented by: [id number] Levothyroxine Sodium (Synthroid) 88 mcg PO DAILYBB [facility] Stop: 02/19/19 06:29 Last Admin: 02/04/19 06:22 Dose: 88 mcg Documented by: [id number] Admin: 02/03/19 06:07 Dose: 88 mcg Documented by: [id number] Admin: 02/02/19 05:06 Dose: 88 mcg Documented by: [id number] Admin: 02/01/19 05:58 Dose: Not Given Documented by: [id number] Admin: 01/31/19 05:34 Dose: Not Given Documented by: [id number] Admin: 01/30/19 05:35 Dose: 88 mcg Documented by: [id number] Admin: 01/29/19 06:42 Dose: 88 mcg Documented by: [id number] Admin: 01/28/19 05:42 Dose: 88 mcg Documented by: [id number] Admin: 01/27/19 08:39 Dose: 88 mcg Documented by: [id number] Admin: 01/27/19 06:05 Dose: Not Given Documented by: [id number] Admin: 01/26/19 05:37 Dose: 88 mcg Documented by: [id number] Admin: 01/25/19 06:07 Dose: 88 mcg Documented by: [id number] Admin: 01/24/19 08:50 Dose: 88 mcg Documented by: [id number] Admin: 01/23/19 06:36 Dose: 88 mcg Documented by: [id number] Admin: 01/22/19 05:37 Dose: 88 mcg Documented by: [id number] Admin: 01/21/19 05:33 Dose: 88 mcg Documented by: [id number] Admin: 01/20/19 06:32 Dose: 88 mcg Documented by: [id number] Magnesium Hydroxide (Milk Of Magnesia) 30 ml PO Q6H PRN PRN Reason: Constipation Stop: 02/23/19 20:25 Last Admin: 02/04/19 08:38 Dose: 30 ml Documented by: [id number] Admin: 01/26/19 20:30 Dose: 30 ml Documented by: [id number] Admin: 01/24/19 21:10 Dose: 30 ml Documented by: [id number] Oxycodone HCl (Roxicodone Immediate Rel) 5 mg PO Q6H PRN PRN Reason: Pain Stop: 02/17/19 23:41 Last Admin: 02/04/19 06:22 Dose: 5 mg Documented by: [id number] Admin: 02/04/19 00:03 Dose: 5 mg Documented by: [id number] Pantoprazole Sodium (Protonix) 40 mg PO DAILY [facility] Stop: 02/19/19 08:59 Last Admin: 02/04/19 08:07 Dose: 40 mg Documented by: [id number] Admin: 02/03/19 08:40 Dose: 40 mg Documented by: [id number] Admin: 02/02/19 09:53 Dose: 40 mg Documented by: [id number] Admin: 02/01/19 09:03 Dose: 40 mg Documented by: [id number] Admin: 01/31/19 08:56 Dose: 40 mg Documented by: [id number] Admin: 01/30/19 08:46 Dose: 40 mg Documented by: [id number] Admin: 01/29/19 08:34 Dose: 40 mg Documented by: [id number] Admin: 01/28/19 08:40 Dose: 40 mg Documented by: [id number] Admin: 01/27/19 08:39 Dose: 40 mg Documented by: [id number] Admin: 01/26/19 08:14 Dose: 40 mg Documented by: [id number] Admin: 01/25/19 08:47 Dose: 40 mg Documented by: [id number] Admin: 01/24/19 08:49 Dose: 40 mg Documented by: [id number] Admin: 01/23/19 08:36 Dose: 40 mg Documented by: [id number] Admin: 01/22/19 08:17 Dose: 40 mg Documented by: [id number] Admin: 01/21/19 08:52 Dose: 40 mg Documented by: [id number] Admin: 01/20/19 09:09 Dose: 40 mg Documented by: [id number] Polyethylene Glycol (Miralax Powder Packet) 34 gm PO DAILY [facility] Stop: 02/22/19 08:59 Last Admin: 01/27/19 08:39 Dose: 34 gm Documented by: [id number] Admin: 01/26/19 08:15 Dose: 34 gm Documented by: [id number] Admin: 01/24/19 08:49 Dose: 34 gm Documented by: [id number] Admin: 01/23/19 08:21 Dose: 34 gm Documented by: [id number] Admin: 01/23/19 05:30 Dose: 34 gm Documented by: [id number] Polyethylene Glycol (Miralax Powder Packet) 17 gm PO Q4H PRN PRN Reason: Constipation Stop: 02/23/19 20:25 Last Admin: 02/03/19 13:21 Dose: 17 gm Documented by: [id number] Admin: 02/01/19 16:07 Dose: 17 gm Documented by: [id number] Admin: 01/26/19 13:35 Dose: 17 gm Documented by: [id number] Admin: 01/25/19 08:47 Dose: 17 gm Documented by: [id number] Admin: 01/24/19 21:11 Dose: 17 gm Documented by: [id number] Potassium Chloride (Klor-Con M10) 10 meq PO QAM [facility] Stop: 03/04/19 08:59 Last Admin: 02/04/19 08:08 Dose: 10 meq Documented by: [id number] Admin: 02/03/19 08:41 Dose: 10 meq Documented by: [id number] Admin: 02/02/19 09:53 Dose: 10 meq Documented by: [id number] Pregabalin (Lyrica) 75 mg PO TID [facility] Stop: 02/20/19 20:59 Last Admin: 02/04/19 08:38 Dose: 75 mg Documented by: [id number] Admin: 02/03/19 20:39 Dose: 75 mg Documented by: [id number] Admin: 02/03/19 13:29 Dose: 75 mg Documented by: [id number] Admin: 02/03/19 08:44 Dose: 75 mg Documented by: [id number] Admin: 02/02/19 20:34 Dose: 75 mg Documented by: [id number] Admin: 02/02/19 13:43 Dose: 75 mg Documented by: [id number] Admin: 02/02/19 09:55 Dose: 75 mg Documented by: [id number] Admin: 02/01/19 20:40 Dose: 75 mg Documented by: [id number] Admin: 02/01/19 14:37 Dose: 75 mg Documented by: [id number] Admin: 02/01/19 09:04 Dose: 75 mg Documented by: [id number] Admin: 01/31/19 20:17 Dose: 75 mg Documented by: [id number] Admin: 01/31/19 14:30 Dose: Not Given Documented by: [id number] Admin: 01/31/19 08:56 Dose: 75 mg Documented by: [id number] Admin: 01/30/19 20:25 Dose: 75 mg Documented by: [id number] Admin: 01/30/19 15:43 Dose: 75 mg Documented by: [id number] Admin: 01/30/19 08:49 Dose: 75 mg Documented by: [id number] Admin: 01/29/19 20:10 Dose: 75 mg Documented by: [id number] Admin: 01/29/19 14:05 Dose: 75 mg Documented by: [id number] Admin: 01/29/19 08:34 Dose: 75 mg Documented by: [id number] Admin: 01/28/19 20:48 Dose: 75 mg Documented by: [id number] Admin: 01/28/19 13:32 Dose: 75 mg Documented by: [id number] Admin: 01/28/19 08:40 Dose: 75 mg Documented by: [id number] Admin: 01/27/19 20:55 Dose: 75 mg Documented by: [id number] Admin: 01/27/19 14:47 Dose: 75 mg Documented by: [id number] Admin: 01/27/19 08:38 Dose: 75 mg Documented by: [id number] Admin: 01/26/19 20:30 Dose: 75 mg Documented by: [id number] Admin: 01/26/19 13:32 Dose: 75 mg Documented by: [id number] Admin: 01/26/19 08:19 Dose: 75 mg Documented by: [id number] Admin: 01/25/19 20:52 Dose: 75 mg Documented by: [id number] Admin: 01/25/19 13:42 Dose: 75 mg Documented by: [id number] Cosigned by: [id number] Admin: 01/25/19 08:47 Dose: 75 mg Documented by: [id number] Admin: 01/24/19 21:16 Dose: 75 mg Documented by: [id number] Admin: 01/24/19 14:11 Dose: Not Given Documented by: [id number] Admin: 01/24/19 08:53 Dose: 75 mg Documented by: [id number] Admin: 01/23/19 21:18 Dose: 75 mg Documented by: [id number] Admin: 01/23/19 14:19 Dose: 75 mg Documented by: [id number] Admin: 01/23/19 08:20 Dose: 75 mg Documented by: [id number] Admin: 01/22/19 21:08 Dose: 75 mg Documented by: [id number] Admin: 01/22/19 16:42 Dose: 75 mg Documented by: [id number] Admin: 01/22/19 08:54 Dose: 75 mg Documented by: [id number] Admin: 01/21/19 20:52 Dose: 75 mg Documented by: [id number] Sennosides (Senokot) 17.2 mg PO QAM PRN PRN Reason: Constipation Stop: 02/19/19 05:48 Last Admin: 02/03/19 13:21 Dose: 17.2 mg Documented by: [id number] Admin: 02/02/19 12:19 Dose: 17.2 mg Documented by: [id number] Admin: 01/25/19 09:55 Dose: 17.2 mg Documented by: [id number] Admin: 01/24/19 21:10 Dose: 17.2 mg Documented by: [id number] Trazodone HCl (Desyrel) 100 mg PO HS [facility] Stop: 02/20/19 20:59 Last Admin: 02/03/19 20:39 Dose: 100 mg Documented by: [id number] Admin: 02/02/19 20:34 Dose: 100 mg Documented by: [id number] Admin: 02/01/19 20:38 Dose: 100 mg Documented by: [id number] Admin: 01/31/19 20:18 Dose: 100 mg Documented by: [id number] Admin: 01/30/19 20:27 Dose: 100 mg Documented by: [id number] Admin: 01/29/19 20:10 Dose: 100 mg Documented by: [id number] Admin: 01/28/19 20:49 Dose: 100 mg Documented by: [id number] Admin: 01/27/19 20:55 Dose: 100 mg Documented by: [id number] Admin: 01/26/19 21:22 Dose: 100 mg Documented by: [id number] Admin: 01/25/19 20:52 Dose: 100 mg Documented by: [id number] Admin: 01/24/19 21:25 Dose: Not Given Documented by: [id number] Admin: 01/23/19 21:18 Dose: 100 mg Documented by: [id number] Admin: 01/22/19 21:15 Dose: Not Given Documented by: [id number] Admin: 01/21/19 20:52 Dose: 100 mg Documented by: [id number] Triamterene/HCTZ (Maxzide 37.5/25mg) 1 tab PO DAILY PRN PRN Reason: Fluid Retention Stop: 02/19/19 05:48 Last Admin: 01/29/19 14:05 Dose: 1 tab Documented by: [id number] Vitamin D (Vitamin D3) 2,000 units PO QAM [facility] Stop: 02/19/19 08:59 Last Admin: 02/04/19 08:07 Dose: 2,000 units Documented by: [id number] Admin: 02/03/19 08:40 Dose: 2,000 units Documented by: [id number] Admin: 02/02/19 09:53 Dose: 2,000 units Documented by: [id number] Admin: 02/01/19 09:03 Dose: 2,000 units Documented by: [id number] Admin: 01/31/19 08:56 Dose: 2,000 units Documented by: [id number] Admin: 01/30/19 08:46 Dose: 2,000 units Documented by: [id number] Admin: 01/29/19 08:34 Dose: 2,000 units Documented by: [id number] Admin: 01/28/19 08:41 Dose: 2,000 units Documented by: [id number] Admin: 01/27/19 08:38 Dose: 2,000 units Documented by: [id number] Admin: 01/26/19 08:14 Dose: 2,000 units Documented by: [id number] Admin: 01/25/19 08:47 Dose: 2,000 units Documented by: [id number] Admin: 01/24/19 08:50 Dose: 2,000 units Documented by: [id number] Admin: 01/23/19 08:21 Dose: 2,000 units Documented by: [id number] Admin: 01/22/19 08:18 Dose: 2,000 units Documented by: [id number] Admin: 01/21/19 08:52 Dose: 2,000 units Documented by: [id number] Admin: 01/20/19 09:09 Dose: 2,000 units Documented by: [id number] Coding Level of Care Code 03805 [facility] Lvl 3
[2019-02-04] MEDS ORDERED: FUROSEMIDE 20 MG TAB PO ONE (12:45)
--- NOTE | 2019-02-04 12:57 | Hospitalist Progress Note ---
Date of Service February 04, 2019 Assessment & Plan (1) Delirium: 63-year-old female was admitted on January 20, 2019 for altered mental status. Delirium: In the setting of pain, insomnia, constipation, and recent initiation of narcotic pain treatment. Improved. Head CT and MRI brain both non-acute. LP noted multi-RBCs. - Continued delirium care / reorientation / encouragement. Concern for fluid overload/Lower extremity edema: Reports of getting SOB/dizzy when working with PT at times (likely component of anxiety/panic attack about future course when she is d/c, per pt). No evidence of orthostasis. Presently on lasix 20 mg PO daily and KCl 10 mEq daily. GLENYS stockings. Held home triamterene/HCTZ. - Added additional dose of Lasix 20 mg PO x 1 today for increased edema. Likely needs some ongoing adjustment. Tachycardia: Patient has some persistent tachycardia, mostly in the 104-119 range. Regular on exam. Last EKG was NSR with RBBB. Does not seem symptomatic (i.e. palpitations, pain) though patient is generally quite deconditioned. BP is okay. For now, monitoring instead of adding a new rate-lowering medication that may impact her already limited mobility. Depressive symptoms: Over past couple of days patient has mentioned to her nursing staff a desire to stop living. No noted plans. Consulted psychiatry for their thoughts. Constipation: On Colace and MiraLAX, both as needed. Did have some diarrhea during admission. 31Oct KUB noted some stool burden without evidence of a bowel obstruction. Ongoing medical issues: - Chronic pain secondary to cholangiocarcinoma vs bony mets, chronic thoracic back pain: Thoracic spine x-ray negative. On oxycodone, Lyrica, trazodone. Trying to avoid potential narcotic-induced encephalopathy. - Chronic leukocytosis: CSF and UCx negative. Lactate normal. CXR clear. BCx without growth (final). CRP and ESR chronically elevated in the setting of cholangiocarcinoma. - Cholangiocarcinoma: Stage IV with liver, peritoneal, and lung metastasis. Followed by Dr. Guy at [facility] in [place]. MRCP 12/04/2018: Multifocal hepatic metastatic disease with retroperitoneal spread to the dorsal pancreas and left adrenal gland. CTA 01/01/2019: Enlarging pulmonary and pleural nodular densities compared to prior. --- Continue pain control as above. Compazine as needed for nausea. Receive Xeloda twice daily on a 1 week on 1 week off cycle, next cycle was scheduled 28Oct. Will likely resume once we touch base with Dr. Guy (Message with Dr. Guy's office at [facility] was left by primary team). - QT prolongation. - Hypertension: Held home triamterene and hydrochlorothiazide. - Chronic anemia secondary to chronic disease vs. bone marrow suppression: No evidence of active bleeding. Baseline hemoglobin 910. - Hypothyroidism: Sick euthyroid. TSH 6.3, free T4 normal. Continue LEAD PRINTER levothyroxine. - GERD: Continue LEAD PRINTER omeprazole. - Gout: Continue LEAD PRINTER allopurinol. - Neuropathy: Continue home Lyrica. Code status: DNR/DNI Diet: Regular Diet DVT prophy: Chemical prophy contraindicated due to coagulopathy. PT/OT: See related notes. Disbo: Pending discharge, likely to [facility] (see related case management notes). (2) AMS (altered mental status): (3) Lymphadenopathy: (4) Constipation: (5) Chronic pain: (6) Cholangiocarcinoma: (7) Leukocytosis: (8) QT prolongation: (9) Hypertension: (10) Chronic anemia: (11) Hypothyroidism: (12) GERD (gastroesophageal reflux disease): (13) Gout: (14) Neuropathy: (15) Tachycardia: (16) Depression: Supervising Physician Co-Signing Physician Notes Patient seen and examined with PGY-3 Dr. Lanza. Agree with history, exam findings, assessment and plan of care. Admitted with AMS. Improving, but quite deconditioned. Previously living independently. There was concern that she was expressing suicidal ideation. She was seen by the psychiatry liason nurse. She continues to be eager to move to [facility]. Feeling a bit short of breath today. 1+ edema of the knee bilaterally. Crackles in the bases to the mid-lung. 1. delirium. Resolved. 2. metastatic cholangiocarcinoma. 3. lower extremity edema. ?some protein malnutrition. Increased home lasix to 40mg daily. Supplement K. Will continue to monitor edema and follow lung exam, I/O's. Ambulate as able. 4. Tachycardia. Asymptomatic. Monitor. If becomes symptomatic, can consider additional rate control being mindful of her blood pressures. Discharge planning. Started auth process and waiting for a bed at [facility]. Appreciate care management. She is medically stable for discharge. At this point, we are working on disposition. Subjective Found patient sitting in her bedside chair. She speaks very slowly and with very few words. At times, she closes her eyes in the middle of the conversation. Overall, she denies any particular acute medical concerns on general questioning. On review of systems, she does say she has a little bit of increased shortness of breath today compared to yesterday. She does not notice that her legs seem more edematous. She says she enjoyed traveling about the hospital in the wheelchair yesterday. Review of Systems Review of Systems: Per HPI as above. Physical Exam Physical Exam: General Appearance: Awake, alert, quickly fatigable and often closes her eyes during conversations. Does not appear in immediate distress. CV: +S1S2 regular tachycardia, no murmur. Pulm: Crackles about [facility] up the bilateral lung bryant. Abdomen: +BS, soft, non-tender, non-distended. Extremities: 2+ pitting edema in bilateral shins (worse than yesterday). Neuro: No gross neuro deficits. Results & Data Vital Signs (Past 12 Hours) Vital Signs Temp Pulse Resp BP Pulse Ox 02/04/19 11:25 36.6 C 119 H 20 109/77 94 02/04/19 10:42 94 02/04/19 07:23 37.0 C 110 H 20 115/77 91 Laboratory Results 02/03/19 Range/Units 20:16 POC Glucose 117 H (70-99) Medications Administered Current Inpatient Medications Acetaminophen (Tylenol) 650 mg PO Q4H PRN PRN Reason: Pain or Fever Stop: 02/26/19 22:38 Last Admin: 01/31/19 04:44 Dose: 650 mg Documented by: Albuterol (Ventolin Hfa) 2 puffs INH Q4H PRN PRN Reason: Shortness Of Breath Stop: 02/19/19 05:48 Allopurinol (Zyloprim) 100 mg PO QAM [facility] Stop: 02/19/19 08:59 Last Admin: 02/04/19 08:07 Dose: 100 mg Documented by: Capecitabine (Xeloda) 3 ea PO BID [facility] Last Admin: 02/01/19 21:27 Dose: Not Given Documented by: Furosemide (Lasix) 20 mg PO QAM [facility] Stop: 03/05/19 08:59 Last Admin: 02/04/19 08:08 Dose: 20 mg Documented by: Prochlorperazine 10 mg/ (Syringe) 10 mls @ 5 mls/min IV Q6H PRN PRN Reason: Nausea And Vomiting Stop: 02/19/19 05:48 Last Admin: 02/02/19 01:05 Dose: 5 mls/min Documented by: Levothyroxine Sodium (Synthroid) 88 mcg PO DAILYBB AUREA Stop: 02/19/19 06:29 Last Admin: 02/04/19 06:22 Dose: 88 mcg Documented by: Magnesium Hydroxide (Milk Of Magnesia) 30 ml PO Q6H PRN PRN Reason: Constipation Stop: 02/23/19 20:25 Last Admin: 02/04/19 08:38 Dose: 30 ml Documented by: Oxycodone HCl (Roxicodone Immediate Rel) 5 mg PO Q6H PRN PRN Reason: Pain Stop: 02/17/19 23:41 Last Admin: 02/04/19 06:22 Dose: 5 mg Documented by: Pantoprazole Sodium (Protonix) 40 mg PO DAILY AUREA Stop: 02/19/19 08:59 Last Admin: 02/04/19 08:07 Dose: 40 mg Documented by: Polyethylene Glycol (Miralax Powder Packet) 34 gm PO DAILY AUREA Stop: 02/22/19 08:59 Last Admin: 01/27/19 08:39 Dose: 34 gm Documented by: Polyethylene Glycol (Miralax Powder Packet) 17 gm PO Q4H PRN PRN Reason: Constipation Stop: 02/23/19 20:25 Last Admin: 02/03/19 13:21 Dose: 17 gm Documented by: Potassium Chloride (Klor-Con M10) 10 meq PO QAM AUREA Stop: 03/04/19 08:59 Last Admin: 02/04/19 08:08 Dose: 10 meq Documented by: Pregabalin (Lyrica) 75 mg PO TID AUREA Stop: 02/20/19 20:59 Last Admin: 02/04/19 08:38 Dose: 75 mg Documented by: Sennosides (Senokot) 17.2 mg PO QAM PRN PRN Reason: Constipation Stop: 02/19/19 05:48 Last Admin: 02/03/19 13:21 Dose: 17.2 mg Documented by: Trazodone HCl (Desyrel) 100 mg PO HS AUREA Stop: 02/20/19 20:59 Last Admin: 02/03/19 20:39 Dose: 100 mg Documented by: Triamterene/HCTZ (Maxzide 37.5/25mg) 1 tab PO DAILY PRN PRN Reason: Fluid Retention Stop: 02/19/19 05:48 Last Admin: 01/29/19 14:05 Dose: 1 tab Documented by: Vitamin D (Vitamin D3) 2,000 units PO QAM AUREA Stop: 02/19/19 08:59 Last Admin: 02/04/19 08:07 Dose: 2,000 units Documented by: Resident Activity Tracking Resident Involvement: Resident Care Provided Care Provided: Adult Hospital Medicine (1) Gout Chronicity: unspecified Gout etiology: unspecified cause Gout site: unspecified site Qualified Code(s): M10.9 - Gout, unspecified (2) Chronic pain Chronic pain type: chronic pain syndrome Qualified Code(s): G89.4 - Chronic pain syndrome (3) Hypothyroidism Hypothyroidism type: acquired Qualified Code(s): E03.9 - Hypothyroidism, unspecified (4) Leukocytosis Leukocytosis type: other Qualified Code(s): D72.828 - Other elevated white blood cell count (5) AMS (altered mental status) Altered mental status type: unspecified Qualified Code(s): R41.82 - Altered mental status, unspecified (6) GERD (gastroesophageal reflux disease) Esophagitis presence: esophagitis presence not specified Qualified Code(s): K21.9 - Gastro-esophageal reflux disease without esophagitis
[2019-02-04] MEDS: TRAZODONE HCL 100 MG TAB PO SCH (20:17)
[2019-02-05] MEDS: OXYCODONE HCL IR 5 MG TAB (IMMEDIATE RELEASE) PO PRN ×3 (02:13→17:29)
[2019-02-05] MEDS: LEVOTHYROXINE SODIUM 88 MCG TABLET PO SCH (05:34)
[2019-02-05 06:54] VITALS: TEMP 98.2
[2019-02-05 07:09] LABS: Hematocrit (blood only) 30.6 % (37-47); Hemoglobin 9.5 g/dL (12.0-16.0); Mean Corpuscular Hemoglobin 24.4 pg (25-34); Mean Corpuscular Volume 78.7 fL (80-100); Mean Platelet Volume 10.7 fL (7.4-10.4); Platelet Count 283 K/uL (130-400); RDW Coefficient of Variation 22.3 % (11.5-14.5); RDW Standard Deviation 61.9 fL (36.4-46.3); Red Blood Count 3.89 M/uL (4.2-5.4); White Blood Count 30.44 K/uL (4.8-10.8)
[2019-02-05 07:14] LABS: Anisocytosis Present; Basophils # (auto) 0.03 K/uL (0-0.2); Basophils % (auto) 0.1 %; Eosinophils # (auto) 0.31 K/uL (0-0.5); Immature Granulocytes # (auto) 0.14 K/uL (0.00-0.02); Immature Granulocytes % (auto) 0.5 %; Lymphocytes # (auto) 2.22 K/uL (1.2-3.4); Lymphocytes % (auto) 7.3 %; Monocytes # (auto) 2.04 K/uL (0.11-0.59); Monocytes % (auto) 6.7 %; Neutrophils % (auto) 84.4 %; Target Cells 1+
[2019-02-05 07:26] LABS: BUN Creatinine Ratio 36.6 (10-20); Calcium 8.4 mg/dl (8.5-10.1); Creatinine Clr Calc Pharmacy 79.6 ml/min; Est GFR (African American) 93.9; Potassium 4.6 mmol/L (3.5-5.1)
[2019-02-05] MEDS: ALLOPURINOL 100 MG TAB PO SCH (08:55)
[2019-02-05] MEDS: PREGABALIN 75 MG CAP PO SCH ×2 (08:55→14:34)
[2019-02-05] MEDS: CHOLECALCIFEROL 1,000 UNITS TAB PO SCH (08:55)
[2019-02-05] MEDS: PANTOprazole 40 MG TAB PO SCH (08:55)
[2019-02-05] MEDS: FUROSEMIDE 20 MG TAB PO SCH (08:55)
[2019-02-05] MEDS: POTASSIUM CHLORIDE 10 MEQ TABCR PO SCH (08:55)
[2019-02-05] MEDS ORDERED: BuPROPion SR 100 MG TABCR PO SCH (09:00)
[2019-02-05] MEDS ORDERED: FUROSEMIDE 20 MG TAB PO ONE (09:45)
[2019-02-05 09:51] LABS: Albumin Level 1.5 gm/dl (3.4-5.0); Bilirubin Direct 3.1 mg/dl (0-0.2); Bilirubin,Total 3.9 mg/dl (0.2-1); Total Protein 7.1 gm/dl (6.4-8.2)
--- NOTE | 2019-02-05 13:04 | XRay Report ---
XR chest 1V portable CLINICAL HISTORY: Shortness of breath COMPARISON STUDY: 01/21/2019 FINDINGS: The cardiac and mediastinal contours remain stable. There is stable mild interstitial thick ening/edema. There is no lobar consolidation[. There are no pleural effusions IMPRESSION: 1. Stable mild interstitial thickening 2. No evidence of focal pulmonary consolidation Electronically signed by: Adi Haro M.D. 02/05/2019 1:03 PM
[2019-02-05] MEDS ORDERED: SODIUM CHLORIDE 0.9% 1000ML 250 ML IV ONE (14:00)
--- NOTE | 2019-02-05 14:37 | Discharge Summary ---
Date of Service February 05, 2019 Admission HPI Per Admitting Provider Yessica Booth is a 63-year-old female admitted medically on 01/20/19 due to concerns for altered mental status, hypoxia, and sedation. PMH includes metastatic cholangiocarcinoma, HTN, hypothyroidism, depression, and chronic back pain. Pt was reportedly brought to the ED on 01/18/19 due to exacerbation of back pain, and received "two doses of morphine." It was reported that prior to the exacerbation of her back pain, the patient had been at her baseline. She was admitted due to AMS, and is reportedly demonstrating some improvement in cognition since the time of her admission. Psychiatric consultation was requested to evaluate patient for "depression". Patient's case was reviewed and discussed with supervising psychiatrist and psychiatric nurse liaison during morning report. Pt is cooperative with interview, though is unable to participate to a productive level. She answers questions, but after significant delay and often with vague, uncertain answers. When asked about her mood, patient initially says she is "good", then states "I don't know", then states "ok." Although she admits to understanding the questions, her responses are rather vague, and she is observed to be drifting off to sleep rather frequently during our interview. Pt is observed while sitting upright in a bedside chair, episodically with her mouth agape and head drifting back as if falling asleep. Pt is able to verb amandeep that she is having thoughts of life not being worth living and desire pass on. She states she has thoughts "to kill myself", but after multiple questions, does not verbalize a specific plan or intent. Patient is currently being visited by her daughter, son-in-law, and a good friend. She gives permission for this provider to speak with her daughter in the hallway privately, in order to gather additional history. Daughter, Judi, states that her mother had been demonstrating increased signs of depression for the past several weeks, especially after the of the patient's sister in 12/2018 due to cancer. Daughter states the patient and her sister were "really close", and daughter had noticed significantly lower mood in the patient since her passing. Daughter states that her mother is "very sensitive to medications", and has experienced dizziness with recent prescription of escitalopram and confusion/slurred speech when sertraline had been initiated in combination with Fentanyl. Pt was recently prescribed duloxetine, but family was informed by a pharmacist that it should not be taken in combination with Lyrica, which the patient was also prescribed. Prescription for duloxetine was filled on 01/19/19, but has reportedly not been taken. Daughter states that she is worried her mother has given up hope of getting back to the condition she had been in a few weeks ago. She reports realization that her mother is "tired of fighting", but states her expression of suicidal ideation has worsened over the course of this admission. Daughter admits that while she is concerned to hear her mother make these statements, she does not believe that her mother would actually follow though with any actions to harm herself or end her life. Daughter verbalizes hope that her mother would be willing to take an antidepressant medication to "help her snap out of this." We discussed ideally utilizing a medication which would improve energy level, while also targeting depressed mood. Daughter questions if fluoxetine would be a good option for her mother. This, in addition to consideration for bupropion, were reviewed - along with risk of utilizing these medications given patient's cancer metastasis to her liver. Daughter verbalizes understanding and states she will speak with her mother about medications and about therapy, which the patient is currently declining. Principal Diagnosis choangiocarcinoma Discharge Exam Constitutional WD/WN, vitals as above Eyes PERRL, conjunctivae normal, anicteric sclerae ENMT pressure abrasion R ear Respiratory normal respiratory effort; no respiratory distress crackles mid to lower lung bryant Cardiovascular RRR, no murmur, no edema Gastrointestinal (Abdomen) normal bowel sounds, soft, nontender, no hepatosplenomegaly Skin no rashes, warm and dry Psychiatric A+Ox3, euthymic affect Discharge Data Allergies Allergy/AdvReac Type Severity Reaction Status Date / Time metoclopramide Allergy Intermediate FACIAL AND Verified 01/20/19 01:47 FEET SWELLING, BONE PAIN silicone Allergy Intermediate SKIN MIRANDA Verified 01/20/19 01:47 celecoxib Allergy Mild RASH Verified 01/20/19 01:47 valsartan Allergy Unknown Verified 01/20/19 01:47 escitalopram AdvReac Severe Dizziness Unverified 02/04/19 15:52 fentanyl AdvReac Severe Arm Unverified 01/20/19 01:47 Numbness atorvastatin AdvReac Intermediate headaches Verified 01/20/19 01:47 acetaminophen [From Tylenol] AdvReac Mild Liver Unverified 01/20/19 01:47 Issues sertraline AdvReac Unknown Unknown Unverified 02/04/19 15:52 Consultations 01/20/19 02:57 ED Decision to Admit Stat 01/20/19 05:49 Consult Palliative Care Routine Consult Palliative Care Routine 02/03/19 17:13 Consult Psychiatry Routine Ordered Studies 01/20/19 01:13 CT head/brain wo con Urgent 01/21/19 13:57 CT head/brain wo con Stat 01/21/19 15:46 FL lumbar puncture diagnostic Routine 01/22/19 17:11 MR brain wo/w con Urgent Hospital Course (1) Delirium: Yessica is a 63-year-old female with a past medical history of metastatic cholangiocarcinoma, hypertension, hypothyroidism, and depression who presented with altered mental status and hypoxia and who was admitted for delirium 2/2 metabolic versus narcosis that is now improved. The following was the medical mangement during stay here: Delirium, intermittent -improved In the setting of pain, insomnia, constipation, and recent initiation of narcotic pain treatment CTH with naf. MRI with no evidence of acute process or metastasis. Lumbar puncture with some erythrocytes, otherwise bland. Continued delirium care / reorientation / encouragement Concern for Fluid overload/Lower extremity edema -reports of getting SOB/dizzy when working with PT at times (likely component of anxiety/panic attack about future course when she is d/c, per pt). Evidence of orthostasis as well, likely 2/2 multiple days of Lasix tx. Given fuid bolus 250cc on day of discharge -Will need to re-assess need for additional diuretics moving forward, pt will not be d/c on any -padmini stockings, increased movement, feet elevation, sodium restriction will all help move LE fluid held home trimaterene/hydrochlorothiazide prn in favor of Lasix, this will be resumed on d/c -measure daily I/O's Depressive symptoms -Psych: Recommended outpatient therapy, which patient declines presently; daughter provided with booklet of mental health services in [facility] -pt started on wellbutrin 100 mg qam Constipation cont Colace and MiraLAX PRN -pt had some diarrhea this admission. Since constipation was primary problem and pain/meds likely to cause this again, will need to continue bowel regimen as a chronic part of her management and allow diarrhea to self resolve if happens again Chronic pain 2/2 cholangio-carcinoma versus bony mets Chronic thoracic back pain Adequately controlled today. Thoracic spine x-ray negative Oxycodone 5 mg 4 times daily as needed, minimize were possible for potential to induce narcosis encephalopathy Continue [employer] Lyrica and trazodone nightly Chronic leukocytosis History of elevated white blood cell count at baseline Lactate normal, chest x-ray with no acute findings, blood culture x2 with no growth Urine culture negative CSF cultures negative CRP/ESR chronically elevated in the setting of cholangiocarcinoma Trend fever curve Cholangiocarcinoma Stage IV with liver, peritoneal, and lung metastasis [facility] [place] MRCP 12/04/2018: Multifocal hepatic metastatic disease with retroperitoneal spread to the dorsal pancreas and left adrenal gland. CTA 01/01/2019: Enlarging pulmonary and pleural nodular densities compared to prior LFT stable Continue pain control as above Nausea: Compazine IV as needed Receive Xeloda twice daily on a 1 week on 1 week off cycle, next cycle was scheduled 01/22/2019. Will need to touch base with Dr. Guy regarding restarting this. Pt's family has contact info Message with Dr. Guy's office at [facility] was left by primary team QT prolongation, chronic No chest pain Negative opponent Continue to follow clinically Hypertension, well controlled held home trimaterene/hydrochlorothiazide, Lasix as above Normotensive throughout Chronic anemia 2/2 chronic disease versus bone marrow suppression No acute signs of bleeding Hemoglobin at baseline of 910 Hypothyroidism Sick euthyroid TSH 6.3, free T4 normal Continue [employer] levothyroxine GERD Continue [employer] omeprazole Gout Continue [employer] allopurinol Neuropathy Continue home Lyrica DVT prophylaxis: Chemical prophylaxis contraindicated in the setting of coagulopathy, INR 1.8 baseline. At time of d/c, pt had no other acute concerns or complaints. Total Time Total Time Spent Total Time Spent (In Minutes): <30 min Discharge Plan Discharge Items Patient Disposition: Transfer [facility] Reason For Visit: HYPOXIA,SEDATION Discharge Diagnosis: cholangio-carcinoma Activity: Per Instructions section Non-emergency contact: Primary Care Provider Call non-emergency contact if: you have any medication questions and your symptoms worsen Follow-up/Referrals: Tawanda Ruvalcaba MD [Primary Care Provider] - Diet: Regular Addtl Attending Provider Instructions: Yessica is a 63-year-old female with a past medical history of metastatic cholangiocarcinoma, hypertension, hypothyroidism, and depression who presented with altered mental status and hypoxia and who was admitted for delirium 2/2 metabolic versus narcosis that is now improved. The following was the medical mangement during stay here: Delirium, intermittent -improved In the setting of pain, insomnia, constipation, and recent initiation of narcotic pain treatment CTH with naf. MRI with no evidence of acute process or metastasis. Lumbar puncture with some erythrocytes, otherwise bland. Continued delirium care / reorientation / encouragement Concern for Fluid overload/Lower extremity edema -reports of getting SOB/dizzy when working with PT at times (likely component of anxiety/panic attack about future course when she is d/c, per pt). Evidence of orthostasis as well, likely 2/2 multiple days of Lasix tx. Given fuid bolus 250cc on day of discharge -Will need to re-assess need for additional diuretics moving forward, pt will not be d/c on any -padmini stockings, increased movement, feet elevation, sodium restriction will all help move LE fluid held home trimaterene/hydrochlorothiazide prn in favor of Lasix, this will be resumed on d/c -measure daily I/O's Depressive symptoms -Psych: Recommended outpatient therapy, which patient declines presently; daughter provided with booklet of mental health services in [facility] -pt started on wellbutrin 100 mg qam, script given Constipation cont Colace and MiraLAX PRN -pt had some diarrhea this admission. Since constipation was primary problem and pain/meds likely to cause this again, will need to continue bowel regimen as a chronic part of her management and allow diarrhea to self resolve if happens again Chronic pain 2/2 cholangio-carcinoma versus bony mets Chronic thoracic back pain Adequately controlled today. Thoracic spine x-ray negative Oxycodone 5 mg 4 times daily as needed, minimize were possible for potential to induce narcosis encephalopathy Continue [employer] Lyrica and trazodone nightly Chronic leukocytosis History of elevated white blood cell count at baseline Lactate normal, chest x-ray with no acute findings, blood culture x2 with no growth Urine culture negative CSF cultures negative CRP/ESR chronically elevated in the setting of cholangiocarcinoma Trend fever curve Cholangiocarcinoma Stage IV with liver, peritoneal, and lung metastasis [facility] [place] MRCP 12/04/2018: Multifocal hepatic metastatic disease with retroperitoneal spread to the dorsal pancreas and left adrenal gland. CTA 01/01/2019: Enlarging pulmonary and pleural nodular densities compared to prior LFT stable Continue pain control as above Nausea: Compazine IV as needed Receive Xeloda twice daily on a 1 week on 1 week off cycle, next cycle was scheduled 01/22/2019. Will need to touch base with Dr. Guy regarding restarting this. Pt's family has contact info Message with Dr. Guy's office at [facility] was left by primary team QT prolongation, chronic No chest pain Negative opponent Continue to follow clinically Hypertension, well controlled held home trimaterene/hydrochlorothiazide, Lasix as above Normotensive throughout Chronic anemia 2/2 chronic disease versus bone marrow suppression No acute signs of bleeding Hemoglobin at baseline of 910 Hypothyroidism Sick euthyroid TSH 6.3, free T4 normal Continue [employer] levothyroxine GERD Continue [employer] omeprazole Gout Continue [employer] allopurinol Neuropathy Continue home Lyrica DVT prophylaxis: Chemical prophylaxis contraindicated in the setting of coagulopathy, INR 1.8 baseline. At time of d/c, pt had no other acute concerns o r complaints. Pending Studies at Discharge: No Stand-Alone Forms: My [facility] Skilled Items Patient informed of condition?: Yes DNR: Yes Discharge Level of Care: Skilled Communicable Disease: No Discharge Prognosis: Stable Lines: None Urinary Catheter: No Medications and DC Order Prescriptions: New bupropion HCl 100 mg Tablet Sustained-Release 12 Hr 100 mg PO QAM 30 Days Qty: 30 RF: 0 bupropion HCl 100 mg tablet 100 mg PO ONCE Qty: 30 RF: 0 Continued cholecalciferol (vitamin D3) 1,000 unit capsule 2,000 units PO QAM RF: 0 sennosides [Senokot] 8.6 mg tablet 17.2 mg PO QAM PRN (Reason: Constipation) RF: 0 allopurinol 100 mg tablet 100 mg PO QAM RF: 0 levothyroxine 88 mcg tablet 88 mcg PO QAM RF: 0 albuterol sulfate [ProAir HFA] 90 mcg/actuation HFA aerosol inhaler 2 puff INHALATION Q4H PRN (Reason: Shortness Of Breath) RF: 0 prochlorperazine maleate 10 mg tablet 10 mg PO Q6H PRN (Reason: Nausea And Vomiting) RF: 0 polyethylene glycol 3350 [Miralax] 17 gram powder in packet 17 g PO DAILY PRN (Reason: Constipation) RF: 0 oxycodone 5 mg tablet 5 - 10 mg PO Q4H PRN (Reason: Pain) RF: 0 Capecitaline 1,500 mg PO DIRECTED RF: 0 pregabalin [Lyrica] 75 mg Capsule 75 mg PO TID RF: 0 omeprazole 20 mg Tablet,Delayed Release (Dr/Ec) 20 mg PO DAILY RF: 0 trazodone 100 mg Tablet 100 mg PO HS RF: 0 triamterene-hydrochlorothiazid 37.5-25 mg Tablet 1 tab PO DAILY PRN (Reason: Fluid Retention) RF: 0 Discharge Orders: Discharge Order (Routine); Ordered 02/05/19 Ordered By: Jeffy Perez Admission Data Admit Date/Time: 01/20/19 04:32 Attending Provider: Bakari Perkins Admit Provider: Jessica Tovar Primary Care Provider: Tawanda Ruvalcaba Other Providers: Socorro Hunter ; [facility] ; Janene Philippe at [place] ; Jessica Tovar ; Sylvia Sharif ; Shadi Skinner. Other Interventions: Discharge Summary Assessment (RN) Last Done: 02/05/19 16:30 DC Date/Time DO NOT enter until pt leaves facility: 02/05/19 18:27 Supervising Physician Co-Signing Physician Notes I personally examined the patient and verified all webster points of history and exam, discussed case, and agree with decision making with Dr Perez. feeling suprisingly well for having been in the hospital an additional week. mental status appearing the same or better as when i last saw her. eating as well as she can. hopeful for discharge today. feet swelling about the same as it's been. observed during OT. vitals noted nad heent nc at mmm breathing unlabored no accessory muscles good e ffort ongoing b/l LE ~2+ edema no focal neuro deficits delirium/multifactorial metabolic encephalopathy - improving. stable for discharge to SNF LE edema - venous stasis related. movement, compression. suspect orthostasis related to lasix -- stopped. thiazide resumed with caution but depending on PO intake, BP/HR and clinical presentation - low threshold to stop this as well. deconditioning/malnutrition - encourage PT/OT and PO intake constipation - improved with bowel regimen here - will need to continue to follow and utilize bowel regimen at SNF otherwise as above Resident Activity Tracking Resident Involvement: Resident Care Provided Care Provided: Adult Hospital Medicine
[2019-02-05 14:50] VITALS: PULSE 109; O2SAT 94
[2019-02-05 16:33] VITALS: BP 128/81
--- NOTE | 2019-02-05 19:06 | Billing Data ---
Coding Level of Care Code D/C Day Management <30 mins
== END 2019-02-05 18:27 | DRG 917 ==
LOC: ED 00:13 → 2W 04:32 → SUATTDRO 04:32 → 2W 05:25

== ENCOUNTER 2019-02-09 18:32 | Inpatient (IN) ==
[2019-02-09 19:35] LABS: INR 2.3 (0.9-1.1); Partial Thromboplastin Ratio 1.2; Prothrombin Time 22.5 Seconds (9.0-12.0)
--- NOTE | 2019-02-09 19:37 | XRay Report ---
XR chest 1V portable CLINICAL HISTORY: weakness COMPARISON STUDY: 02/05/2019 FINDINGS: The cardiac and mediastinal contours remain stable. There is no focal pulmonary consolidati on. There are no significant pleural effusions. There is minor interstitial thickening perhaps slight ly less pronounced than on the prior study[ IMPRESSION: No acute findings. Electronically signed by: Adi Haro M.D. 02/09/2019 7:35 PM
[2019-02-09 19:44] LABS: Alanine Aminotransferase 21 U/L (12-78); Albumin Level 1.7 gm/dl (3.4-5.0); Aspartate Aminotransferase 55 U/L (15-37); BUN Creatinine Ratio 39.1 (10-20); Bilirubin Direct 4.8 mg/dl (0-0.2); Blood Urea Nitrogen 41 mg/dl (7-18); Calcium 8.9 mg/dl (8.5-10.1); Carbon Dioxide 25 mmol/L (21-32); Chloride 96 mmol/L (98-107); Creatinine Clr Calc Pharmacy 59.2 ml/min; Est GFR (African American) 63.8; Est GFR (Non-African American) 55.1; Glucose 90 mg/dl (70-99); Potassium 4.4 mmol/L (3.5-5.1); Sodium 135 mmol/L (136-145)
[2019-02-09] MEDS ORDERED: SODIUM CHLORIDE 0.9% 1000ML 1,000 ML IV ONE (19:46)
[2019-02-09 19:47] LABS: Hematocrit (blood only) 35.8 % (37-47); Hemoglobin 11.1 g/dL (12.0-16.0); Mean Corpuscular Volume 80.6 fL (80-100); Mean Platelet Volume 11.3 fL (7.4-10.4); Platelet Count 228 K/uL (130-400); RDW Coefficient of Variation 24.8 % (11.5-14.5); Red Blood Count 4.44 M/uL (4.2-5.4); White Blood Count 31.37 K/uL (4.8-10.8)
[2019-02-09] MEDS ORDERED: PIPERACILLIN/TAZOBACTAM 4.5 GM/120 ML BAG IV ONE (19:52)
[2019-02-09] MEDS ORDERED: LEVOFLOXACIN/D5W 750 MG/150 ML BAG IV STA (19:52)
[2019-02-09] MEDS ORDERED: PIPERACILL/TAZOBAC CONSULT ACTIVE PRN (19:52)
[2019-02-09] MEDS ORDERED: DAPTOmycin 375 MG in SYRINGE 0 ML IV ONE (19:52)
[2019-02-09 19:53] LABS: Alkaline Phosphatase 575 U/L (45-117); Bilirubin,Total 5.9 mg/dl (0.2-1); Creatine Kinase 21 U/L (26-192); Creatine Kinase MB < 1.0 ng/ml (0.5-3.6); Total Protein 7.9 gm/dl (6.4-8.2); Troponin I < 0.015 ng/ml (0-0.045)
[2019-02-09 20:10] LABS: Anisocytosis Present; Basophils # (auto) 0.01 K/uL (0-0.2); Eosinophils # (auto) 0.18 K/uL (0-0.5); Eosinophils % (auto) 0.6 %; Howell-Jolly Bodies Occasional; Immature Granulocytes # (auto) 0.26 K/uL (0.00-0.02); Immature Granulocytes % (auto) 0.8 %; Lymphocytes # (auto) 2.58 K/uL (1.2-3.4); Lymphocytes % (auto) 8.2 %; Macrocytosis Present; Monocytes # (auto) 1.66 K/uL (0.11-0.59); Monocytes % (auto) 5.3 %; Neutrophils # (auto) 26.68 K/uL (1.4-6.5); Neutrophils % (auto) 85.1 %; Polychromasia 1+; Target Cells 1+
[2019-02-09] MEDS ORDERED: HYDROmorphone INJ 0.5 MG/0.5 ML SYR IV PRN (20:14)
[2019-02-09 20:34] LABS: Influenza A virus by PCR Neg for Influ A (Neg); Influenza B virus by PCR Neg for Influ B (Neg)
--- NOTE | 2019-02-09 20:39 | CT Scan Report ---
CT head/brain wo con CLINICAL HISTORY: Acute change in mental status COMPARISON STUDY: 01/21/2019 TECHNIQUE: Axial CT of the brain is performed from the vertex to the skull base. IV contrast was not administered for this examination. A dose lowering technique was utilized adhering to the principles of ALARA. CT DOSE: FINDINGS: No intra or extra-axial mass lesions are visualized. There is no CT evidence of acute cortical infarc tion. There is no evidence of midline shift. There is no acute hemorrhage. No calvarial fractures ar e visualized. There are minor white matter hypodensities likely on a small vessel basis. There is no evidence of pathologic ventricular dilatation. There is no evidence of acute sinusitis IMPRESSION: No acute intracranial findings Electronically signed by: Adi Haro M.D. 02/09/2019 8:37 PM
--- NOTE | 2019-02-09 20:50 | CT Scan Report ---
CT SCAN OF THE ABDOMEN AND PELVIS WITHOUT CONTRAST CLINICAL HISTORY: Abdominal bloating. Elevated INR. Evaluate for hemorrhage. REPORTED HISTORY OF PRIO R CANCER WITH METASTATIC DISEASE COMPARISON STUDY: 12/03/2017 TECHNIQUE: CT scan of the abdomen and pelvis was performed from the lung bases to the proximal femurs . Images are reviewed in the axial, sagittal, and coronal planes. IV contrast was not administered fo r this examination. A dose lowering technique was utilized adhering to the principles of ALARA. CT DOSE: 1791.77 mGy.cm FINDINGS: Lower chest: There is a 4 mm right upper lobe pulmonary nodule. There is an 11 mm pleural-based right lower lobe pulmonary nodule. There is a 13 mm nodule abutting the right hemidiaphragm. There is a 12 mm left lower lobe para-aortic opacity. Multiple additional smaller nodules are visualized. Liver: There are innumerable hepatic masses consistent with extensive metastatic disease. This appear s progressive when compared the preceding study. Gallbladder: Surgically absent Spleen: Normal in size and attenuation. Pancreas: There is a large retroperitoneal mass engulfing the pancreas celiac and superior mesenteric arteries. This measures 10 cm and has enlarged significantly when compared the preceding study. Adrenal glands: The left adrenal gland has engulfed by the above-mentioned large retroperitoneal mass Kidneys: The unenhanced kidneys are normal in size without hydronephrosis. There is no contour deform ing renal mass lesion. No renal calculi are identified. Bowel: There are no transition zones indicate bowel obstruction. There is colonic diverticulosis. Peritoneum: There is been interval development of low to moderate volume ascites. There are multiple small mesenteric tumor implants. Vasculature: The abdominal aorta is normal in course and caliber. Adenopathy: There is progressive retroperitoneal aortocaval adenopathy. Pelvic viscera: There is a moderate amount of stool within the rectosigmoid. The uterus appears surgi amanda absent Skeletal structures: There is a T12 compression fracture, possibly pathologic there is an S5 lytic fo cus. IMPRESSION: 1. Marked progression in the extensive hepatic metastasis 2. Significant enlargement in the retroperitoneal metastatic implant which engulfs the left adrenal g land pancreas as well as the celiac and superior mesenteric origins 3. Progressive metastatic adenopathy within the abdomen 4. Multiple small mesenteric tumor implants with interval development of low to moderate volume ascit es 5. Probable pulmonary metastasis 6. Probable skeletal metastasis with a pathologic T12 compression fracture Electronically signed by: Adi Haro M.D. 02/09/2019 8:48 PM
--- NOTE | 2019-02-09 22:42 | History & Physical Report ---
Date of Service February 09, 2019 Assessment & Plan (1) Goals of care, counseling/discussion: Yessica is a 63-year-old female with a past medical history of metastatic cholangiocarcinoma, hypertension, hypothyroidism, and depression, recently admitted 01/20-02/05/19 for delirium, who presents today from [facility] due to generalized weakness, fatigue, abdominal pain, and abnormal labs as noted at [facility]. As noted in HPI, decision was made to make her comfort measures only after extensive discussion with 4 family members present at bedside. Goals of care discussion -Comfort measures only -Palliative and CM referrals placed. Pt and family had discussed hospice on previous admission -Atropine drops for secretions prn Chronic pain 2/2 cholangio-carcinoma versus bony mets -Pain control with morphine and dilaudid Depressed mood -ativan prn for agitation Chronic leukocytosis, elevated lactate -Declining further workup, fluids, antibiotics Cholangiocarcinoma Stage IV with liver, peritoneal, and lung metastasis MRCP 12/04/2018: Multifocal hepatic metastatic disease with retroperitoneal spread to the dorsal pancreas and left adrenal gland. CTA 01/01/2019: Enlarging pulmonary and pleural nodular densities compared to prior Continue pain control as above Nausea: Compazine IV as needed Hypertension, well controlled, with current hypotension -No intervention desired by family -NO transfer to ICU or pressors Code: DNR/DNI DVTP: declined by family Dispo: Comfort measures (2) Non-small cell cancer of left lung: (3) Metastatic cancer: (4) Cirrhosis: (5) Weakness: (6) Anxiety: (7) Depression: (8) Hypotension: (9) Elevated lactic acid level: (10) Elevated INR: History of Present Illness Chief Complaint: Weakness Primary Care Provider: Ace Ruvalcaba MD Yessica is a 63-year-old female with a past medical history of metastatic cholangiocarcinoma, hypertension, hypothyroidism, and depression, recently admitted 01/20-02/05/19 for delirium, who presents today from [facility] due to generalized weakness, fatigue, abdominal pain with movement, and abnormal labs as noted at [facility]. Patient notes since discharge her mood has been low, and admits to some suicidal ideation and passive wish. In the ER, she was found to be mildly tachycardic with borderline low BP. Labs revealed an elevated WBC of 31, worsening INR of 2.3, lactate of 9.5, and elevated LFTs. CT abdo/pelvis revealed: Marked progression in extensive hepatic metastasis, significant enlargement in the retroperitoneal metastatic implant, engulfing the left adrenal gland pancreas as well as the celiac and superior mesenteric origins, progressive metastatic adenopathy within the abdomen, multiple small mesenteric tumor implants with interval development of low to moderate volume ascites, probable pulmonary metastasis, probable skeletal metastasis with a pathologic T12 compression fracture. She was started on daptomycin, hydromorphone, levaquin, and zosyn along with IVF. Her blood pressure was noted to continue to drop, and upon discussing whether patient would agree to transfer to ICU in the event of requiring pressors to keep her BP elevated, patient and family both noted that they would NOT want that, and stated that she does not want to extend her illness any longer. After extensive discussion with patient and all 4 family members and at bedside, the decision was made to make her comfort measures only and requested in-hospital hospice. They declined further fluids and antibiotics. Allergies Allergy/AdvReac Type Severity Reaction Status Date / Time metoclopramide Allergy Intermediate FACIAL AND Verified 02/09/19 21:25 FEET SWELLING, BONE PAIN silicone Allergy Intermediate SKIN MIRANDA Verified 02/09/19 21:25 celecoxib Allergy Mild RASH Verified 02/09/19 21:25 valsartan Allergy Unknown Unknown Verified 02/09/19 21:25 escitalopram AdvReac Severe Dizziness Unverified 02/04/19 15:52 fentanyl AdvReac Severe Arm Unverified 02/09/19 21:25 Numbness atorvastatin AdvReac Intermediate headaches Verified 02/09/19 21:25 sertraline AdvReac Unknown Unknown Unverified 02/04/19 15:52 acetaminophen [From Tylenol] AdvReac Liver Verified 02/09/19 21:25 Issues lorazepam AdvReac Confusion Verified 02/10/19 02:05 Home Medications Home Medications Medication Instructions Recorded Confirmed Type prochlorperazine maleate 10 mg PO TID PRN 09/09/18 02/09/19 History albuterol sulfate 90 mcg/actuation 2 puff INHALATION Q4H PRN gm 11/30/18 02/09/19 History aerosol inhaler cholecalciferol (vitamin D3) 1,000 2,000 units PO QAM cap 11/30/18 02/09/19 History unit capsule oxycodone 5 mg PO Q4H PRN 01/01/19 02/09/19 History polyethylene glycol 3350 [Miralax] 17 g PO QAM 01/01/19 02/09/19 History allopurinol 100 mg PO QAM 01/18/19 02/09/19 History levothyroxine 88 mcg PO QAM 01/18/19 02/09/19 History omeprazole 20 mg PO DAILY 01/20/19 02/09/19 History pregabalin [Lyrica] 75 mg PO TID 01/20/19 02/09/19 History bisacodyl [Dulcolax (bisacodyl)] 10 mg WI DIRECTED PRN 02/09/19 02/09/19 History bupropion HCl [Wellbutrin SR] 100 mg PO QAM 02/09/19 02/09/19 History furosemide 20 mg PO QAM 02/09/19 02/09/19 History magnesium hydroxide [Milk of 30 ml PO DIRECTED PRN 02/09/19 02/09/19 History Magnesia] mirtazapine 15 mg PO HS 02/09/19 02/09/19 History nystatin 5 ml PO QID 02/09/19 02/09/19 History oxycodone 10 mg PO Q4H PRN 02/09/19 02/09/19 History potassium chloride 10 meq PO DAILY 02/09/19 02/09/19 History sennosides 17.2 mg PO AMHS 02/09/19 02/09/19 History sodium phosphates [Fleet Enema] 118 ml WI DIRECTED PRN 02/09/19 02/09/19 History Past Med/Surg History Medical History Anxiety (Chronic) Asthma (Chronic) Borderline diabetes mellitus (Chronic) Cholangiocarcinoma (Chronic) diagnosed 2019 - followed by [facility] Chronic obstructive pulmonary disease (Chronic) never uses inhaler Depression (Chronic) Encounter for pre-operative examination (Resolved) Fatty liver GERD (gastroesophageal reflux disease) (Chronic) Gout (Chronic) Hiatal hernia (Chronic) Hyperlipidemia (Chronic) Hypertension (Chronic) Hypothyroid (Chronic) Lung cancer (Chronic) s/p left lower lobectomy Neuropathy (Chronic) [place] feet Osteoarthritis (Chronic) Port-A-Cath in place Severe sepsis (Acute) Surgical History H/O exploratory laparotomy (Resolved) for abdominal pain, found hiatal hernia History of arthroscopy of right knee (Resolved) History of cataract surgery (Resolved) History of section (Resolved) History of colonoscopy (Resolved) History of esophagogastroduodenoscopy (EGD) (Resolved) History of laminectomy (Resolved) History of laparoscopy 05/2018 [facility] - lymph node biopsy, liver biopsy History of lobectomy of lung (Chronic) left lower lobe. [facility] 05/04/17. MAC 3, ETT 7.5, no issues noted in anesthesia record. History of surgery (Resolved) removal of "eccrine" gland History of total abdominal hysterectomy and bilateral salpingo-oophorectomy (Resolved) Hx of cholecystectomy (Resolved) Family History Brother Family history of lung cancer Sister Family history of lung cancer sister Family history of kidney cancer Family history of skin cancer Family history of breast cancer Family history of uterine cancer Family history of ovarian cancer Mother , age 89 "old age" No problems noted. 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 [employer] Feels Safe at Home: Yes Safety Concerns: Feels Safe At This Time Smoking Status: Former smoker Tobacco Type: cigarettes ; Cigarettes Per Day: QUIT 15 YR AGO, PREVIOUS 1/2 PPD X 25 YR ; Second Hand Exposure: No ; Hx Alcohol Use: No Hx Substance Use: No Review of Systems Review of Systems: All systems reviewed & are unremarkable except as noted in HPI & below Constitutional: + fatigue, + malaise, + weakness and + anorexia Ear, Nose, Mouth, Throat: + dry mouth Cardiovascular: + edema; no chest pain and no dyspnea Gastrointestinal: + abdominal pain, + bloating, + early satiety and + cramping Musculoskeletal: + back pain Psychiatric: + depression, + hopelessness, + anhedonia, + suicidal ideation and + anxiety Physical Exam Constitutional: + ill appearing and + cachectic Eyes: PERRL, conjunctivae normal, anicteric sclerae ENMT: Nose: + dry nasal mucous membranes Mouth: + edentulous Neck: normal visual inspection Respiratory: normal respiratory effort, lungs clear to auscultation Cardiovascular: Rate/Rhythm: regular rate and regular rhythm Extremities: + edema (2+ bilaterally to knees) Gastrointestinal (Abdomen): Inspection/Auscultation: normal bowel sounds Percussion/Palpation: + abdomen tender (RUQ) Musculoskeletal: Extremities: + limited ROM of extremities, + abnormal strength and + abnormal muscle tone Skin: no rashes, warm and dry Neurologic: PERRL, EOMI, accommodation nl, no face palsy, no dysarthria Psychiatric: Orientation: alert and oriented x 3 Affect: + depressed affect and + flat affect Mood: + depressed mood Insight: good insight Judgement: good judgement Results & Data Vital Signs (Past 12 Hours) Vital Signs Temp Pulse Pulse Resp BP BP Pulse Ox 02/09/19 22:00 105 H 22 98/64 L 95 02/09/19 21:30 97 H 19 103/67 96 02/09/19 21:08 93 H 16 106/70 96 02/09/19 20:00 96 H 26 H 107/66 95 02/09/19 19:00 97 H 22 110/66 96 02/09/19 18:36 98.4 F 96 H 26 H 109/66 97 Laboratory Results 02/09/19 02/09/19 02/09/19 Range/Units 19:52 19:08 19:08 WBC 31.37 H* (4.8-10.8) K/uL RBC 4.44 (4.2-5.4) M/uL Hgb 11.1 L (12.0-16.0) g/dL Hct 35.8 L (37-47) % MCV 80.6 (80-100) fL MCH 25.0 (25-34) pg MCHC 31.0 L (32-36) g/dL RDW Std Deviation 70.0 H (36.4-46.3) fL RDW Coeff of Harish 24.8 H (11.5-14.5) % Plt Count 228 (130-400) K/uL MPV 11.3 H (7.4-10.4) fL Immature Gran % (Auto) 0.8 % Neut % (Auto) 85.1 % Lymph % (Auto) 8.2 % [place] % (Auto) 5.3 % Eos % (Auto) 0.6 % Baso % (Auto) 0.0 % Immature Gran # (Auto) 0.26 H (0.00-0.02) K/uL Neut # (Auto) 26.68 H (1.4-6.5) K/uL Lymph # (Auto) 2.58 (1.2-3.4) K/uL [place] # (Auto) 1.66 H (0.11-0.59) K/uL Eos # (Auto) 0.18 (0-0.5) K/uL Baso # (Auto) 0.01 (0-0.2) K/uL Polychromasia 1+ Anisocytosis Present Macrocytosis Present Target Cells 1+ [place] Bodies Occasional PT (9.0-12.0) Seconds INR (0.9-1.1) APTT (21.0-31.0) Seconds PTT Ratio Sodium (136-145) mmol/L Potassium (3.5-5.1) mmol/L Chloride (98-107) mmol/L Carbon Dioxide (21-32) mmol/L Anion Gap (3-11) BUN (7-18) mg/dl Creatinine (0.6-1.2) mg/dl Est Cr Clr Drug Dosing ml/min Est GFR ( Amer) Est GFR (Non-Af Amer) BUN/Creatinine Ratio (10-20) Glucose (70-99) mg/dl Lactate 9.5 H* (0.4-2.0) mmol/L Calcium (8.5-10.1) mg/dl Total Bilirubin (0.2-1) mg/dl Direct Bilirubin (0-0.2) mg/dl AST (15-37) U/L ALT (12-78) U/L Alkaline Phosphatase (45-117) U/L Total Creatine Kinase (26-192) U/L CK-MB (CK-2) (0.5-3.6) ng/ml CK/CKMB % Calc Troponin I (0-0.045) ng/ml Total Protein (6.4-8.2) gm/dl Albumin (3.4-5.0) gm/dl TSH (0.300-4.500) uIu/ml Influenza Type A (PCR) Neg for Influ A (Neg) Influenza Type B (PCR) Neg for Influ B (Neg) 02/09/19 02/09/19 Range/Units 19:03 19:03 WBC (4.8-10.8) K/uL RBC (4.2-5.4) M/uL Hgb (12.0-16.0) g/dL Hct (37-47) % MCV (80-100) fL MCH (25-34) pg MCHC (32-36) g/dL RDW Std Deviation (36.4-46.3) fL RDW Coeff of Harish (11.5-14.5) % Plt Count (130-400) K/uL MPV (7.4-10.4) fL Immature Gran % (Auto) % Neut % (Auto) % Lymph % (Auto) % [place] % (Auto) % Eos % (Auto) % Baso % (Auto) % Immature Gran # (Auto) (0.00-0.02) K/uL Neut # (Auto) (1.4-6.5) K/uL Lymph # (Auto) (1.2-3.4) K/uL [place] # (Auto) (0.11-0.59) K/uL Eos # (Auto) (0-0.5) K/uL Baso # (Auto) (0-0.2) K/uL Polychromasia Anisocytosis Macrocytosis Target Cells [place] Bodies PT 22.5 H (9.0-12.0) Seconds INR 2.3 H (0.9-1.1) APTT 33.0 H (21.0-31.0) Seconds PTT Ratio 1.2 Sodium 135 L (136-145) mmol/L Potassium 4.4 (3.5-5.1) mmol/L Chloride 96 L (98-107) mmol/L Carbon Dioxide 25 (21-32) mmol/L Anion Gap 14.0 H (3-11) BUN 41 H (7-18) mg/dl Creatinine 1.06 (0.6-1.2) mg/dl Est Cr Clr Drug Dosing 59.2 ml/min Est GFR ( Amer) 63.8 Est GFR (Non-Af Amer) 55.1 BUN/Creatinine Ratio 39.1 H (10-20) Glucose 90 (70-99) mg/dl Lactate (0.4-2.0) mmol/L Calcium 8.9 (8.5-10.1) mg/dl Total Bilirubin 5.9 H (0.2-1) mg/dl Direct Bilirubin 4.8 H (0-0.2) mg/dl AST 55 H (15-37) U/L ALT 21 (12-78) U/L Alkaline Phosphatase 575 H (45-117) U/L Total Creatine Kinase 21 L (26-192) U/L CK-MB (CK-2) < 1.0 (0.5-3.6) ng/ml CK/CKMB % Calc TNP Troponin I < 0.015 (0-0.045) ng/ml Total Protein 7.9 (6.4-8.2) gm/dl Albumin 1.7 L (3.4-5.0) gm/dl TSH 4.330 (0.300-4.500) uIu/ml Influenza Type A (PCR) (Neg) Influenza Type B (PCR) (Neg) Diagnostic Findings CT SCAN OF THE ABDOMEN AND PELVIS WITHOUT CONTRAST CLINICAL HISTORY: Abdominal bloating. Elevated INR. Evaluate for hemorrhage. REPORTED HISTORY OF PRIOR CANCER WITH METASTATIC DISEASE COMPARISON STUDY: 12/03/2017 TECHNIQUE: CT scan of the abdomen and pelvis was performed from the lung bases to the proximal femurs. Images are reviewed in the axial, sagittal, and coronal planes. IV contrast was not administered for this examination. A dose lowering technique was utilized adhering to the principles of ALARA. CT DOSE: 1791.77 mGy.cm FINDINGS: Lower chest: There is a 4 mm right upper lobe pulmonary nodule. There is an 11 mm pleural-based right lower lobe pulmonary nodule. There is a 13 mm nodule abutting the right hemidiaphragm. There is a 12 mm left lower lobe para-aortic opacity. Multiple additional smaller nodules are visualized. Liver: There are innumerable hepatic masses consistent with extensive metastatic disease. This appears progressive when compared the preceding study. Gallbladder: Surgically absent Spleen: Normal in size and attenuation. Pancreas: There is a large retroperitoneal mass engulfing the pancreas celiac and superior mesenteric arteries. This measures 10 cm and has enlarged signif icantly when compared the preceding study. Adrenal glands: The left adrenal gland has engulfed by the above-mentioned large retroperitoneal mass Kidneys: The unenhanced kidneys are normal in size without hydronephrosis. There is no contour deforming renal mass lesion. No renal calculi are identified. Bowel: There are no transition zones indicate bowel obstruction. There is colonic diverticulosis. Peritoneum: There is been interval development of low to moderate volume ascites. There are multiple small mesenteric tumor implants. Vasculature: The abdominal aorta is normal in course and caliber. Adenopathy: There is progressive retroperitoneal aortocaval adenopathy. Pelvic viscera: There is a moderate amount of stool within the rectosigmoid. The uterus appears surgically absent Skeletal structures: There is a T12 compression fracture, possibly pathologic there is an S5 lytic focus. IMPRESSION: 1. Marked progression in the extensive hepatic metastasis 2. Significant enlargement in the retroperitoneal metastatic implant which engulfs the left adrenal gland pancreas as well as the celiac and superior mesenteric origins 3. Progressive metastatic adenopathy within the abdomen 4. Multiple small mesenteric tumor implants with interval development of low to moderate volume ascites 5. Probable pulmonary metastasis 6. Probable skeletal metastasis with a pathologic T12 compression fracture Code Status & VTE Plan Code Status DNR/DNI VTE Prophylaxis Plan Reason for no VTE drug order: Drug declined by patient Reason for no VTE mechanical prophylaxis: Refusal of treatmnt by pt Supervising Physician Co-Signing Physician Notes Attending addendum: I have physically seen this patient, have supervised the medical residents activities, and agree with the H&P unless as otherwise noted. Assessment and Plan: Metastatic cholangiocarcinoma of the liver/mets to liver, peritoneal cavity and lungs- Severe pain. After long discussion with family, they and the patient opted for comfort measures. We will consult palliative care and social worker psychiatric. Available Zofran, morphine, atropine eyedrops and the other usual PRN's for patient comfort. Remaining orders and notations as noted. Resident Activity Tracking Resident Involvement: Resident Care Provided Care Provided: Adult [facility] Medicine (1) Depression Depression Type: other depression Qualified Code(s): F32.89 - Other specified depressive episodes
[2019-02-10] MEDS ORDERED: MoRPHine SULFATE 2 MG/ML CARP ONE (00:06)
[2019-02-10] MEDS ORDERED: MoRPHine SULFATE 2 MG/ML CARP IV PRN (00:10)
[2019-02-10] MEDS ORDERED: LORazepam 1 MG/2 ML VIAL IV PRN (00:10)
[2019-02-10] MEDS ORDERED: PROCHLORPERAZINE 5 MG in SYRINGE 4 ML IV PRN (00:10)
[2019-02-10] MEDS ORDERED: ATROPINE SULFATE 1% OP SOLN 2 ML BTL PO PRN (00:10)
[2019-02-10] MEDS: HYDROmorphone INJ 0.5 MG/0.5 ML SYR IV PRN ×6 (01:28→15:39)
--- NOTE | 2019-02-10 17:11 | Hospitalist Progress Note ---
Date of Service February 10, 2019 Assessment & Plan (1) Goals of care, counseling/discussion: Yessica is a 63-year-old female with a past medical history of metastatic cholangiocarcinoma, hypertension, hypothyroidism, and depression, recently admitted 01/20-02/05/19 for delirium, who presents today from [facility] due to generalized weakness, fatigue, abdominal pain, and abnormal labs as noted at [facility]. As noted in HPI, decision was made to make her comfort measures only after extensive discussion with 4 family members present at bedside. Goals of care discussion -Comfort measures only -Palliative and CM referrals placed. Pt and family had discussed hospice on previous admission -Atropine drops for secretions prn - discussed morphine drip with risks and benefits such as sedation and suppression of respiratory drive. Family would like to initiate drip after all of patient's family has arrived this evening. She continues to have quite a bit of pain. Chronic pain 2/2 cholangio-carcinoma versus bony mets -Pain control with morphine and dilaudid - transition to morphine gtt as above Depressed mood -ativan prn for agitation Chronic leukocytosis, elevated lactate -Declining further workup, fluids, antibiotics Cholangiocarcinoma Stage IV with liver, peritoneal, and lung metastasis MRCP 12/04/2018: Multifocal hepatic metastatic disease with retroperitoneal spread to the dorsal pancreas and left adrenal gland. CTA 01/01/2019: Enlarging pulmonary and pleural nodular densities compared to prior Continue pain control as above Nausea: Compazine IV as needed Hypertension, well controlled, with current hypotension -No intervention desired by family -NO transfer to ICU or pressors Code: DNR/DNI DVTP: declined by family Dispo: Comfort measures (2) Non-small cell cancer of left lung: (3) Metastatic cancer: (4) Cirrhosis: (5) Weakness: (6) Anxiety: (7) Depression: (8) Hypotension: (9) Elevated lactic acid level: (10) Elevated INR: Subjective Ms. Booth has mostly been laying still with eyes closed today, she does awaken with verbal stimulus. She has been having pain most of the day. I discussed morphine drip with the family and its risks and benefits. They would like to start a drip when Ms. Booth's son gets to the hospital and has some time with her first. Physical Exam Constitutional: + ill appearing Respiratory: normal respiratory effort, lungs clear to auscultation Cardiovascular: RRR, no murmur, no edema Gastrointestinal (Abdomen): Inspection/Auscultation: abdomen normal to inspection and normal bowel sounds; abdomen not distended Percussion/Palpation: abdomen soft; abdomen nontender Neurologic: moves all extremities and awake Psychiatric: Affect: + flat affect drowsy Results & Data Vital Signs (Past 12 Hours) Vital Signs Pulse 02/10/19 15:45 118 H PG Care Time/CCT Total # of Minutes Spent Total Time Spent with Patient: Total time spent is greater than 50% in coordination of care (as documented) at patient's floor/unit and/or counseling patient: (1) Depression Depression Type: other depression Qualified Code(s): F32.89 - Other specified depressive episodes
[2019-02-10] MEDS: MoRPHine SULF/NSS 250 MG/250 ML BTL IV PRN ×3 (18:07→20:24)
--- NOTE | 2019-02-10 22:05 | Emergency Department Note ---
Entered by Magi Morin acting as a scribe for Jun Fuentes MD History of Present Illness General Chief complaint: Weakness Stated complaint: weakness Time Seen by Provider: 02/09/19 18:34 Source: patient and family History of Present Illness Provider complaint: weakness Onset (ago): week(s) 1 Pain Consistency: + other (worsening) Relieved By: + none Exacerbated By: + none Associated symptoms: + cough and + other (-abdominal pain) The patient is a 63 year old female who presents to the Emergency Room with complaints of worsening weakness for the past week. Per EMS, the patient was not able to lift her arms up today. The patient's family states that the patient's T bili levels have been increasing throughout the week. They note that the patient's levels today were elevated. They state that the patient is currently on Lasix. The patient denies any abdominal pain. Home Medications Home Medications Medication Instructions Recorded Confirmed Type prochlorperazine maleate 10 mg PO TID PRN 09/09/18 02/09/19 History albuterol sulfate 90 mcg/actuation 2 puff INHALATION Q4H PRN gm 11/30/18 02/09/19 History aerosol inhaler cholecalciferol (vitamin D3) 1,000 2,000 units PO QAM cap 11/30/18 02/09/19 History unit capsule oxycodone 5 mg PO Q4H PRN 01/01/19 02/09/19 History polyethylene glycol 3350 [Miralax] 17 g PO QAM 01/01/19 02/09/19 History allopurinol 100 mg PO QAM 01/18/19 02/09/19 History levothyroxine 88 mcg PO QAM 01/18/19 02/09/19 History omeprazole 20 mg PO DAILY 01/20/19 02/09/19 History pregabalin [Lyrica] 75 mg PO TID 01/20/19 02/09/19 History bisacodyl [Dulcolax (bisacodyl)] 10 mg MN DIRECTED PRN 02/09/19 02/09/19 History bupropion HCl [Wellbutrin SR] 100 mg PO QAM 02/09/19 02/09/19 History furosemide 20 mg PO QAM 02/09/19 02/09/19 History magnesium hydroxide [Milk of 30 ml PO DIRECTED PRN 02/09/19 02/09/19 History Magnesia] mirtazapine 15 mg PO HS 02/09/19 02/09/19 History nystatin 5 ml PO QID 02/09/19 02/09/19 History oxycodone 10 mg PO Q4H PRN 02/09/19 02/09/19 History potassium chloride 10 meq PO DAILY 02/09/19 02/09/19 History sennosides 17.2 mg PO AMHS 02/09/19 02/09/19 History sodium phosphates [Fleet Enema] 118 ml MN DIRECTED PRN 02/09/19 02/09/19 History Allergies Allergy/AdvReac Type Severity Reaction Status Date / Time metoclopramide Allergy Intermediate FACIAL AND Verified 02/09/19 21:25 FEET SWELLING, BONE PAIN silicone Allergy Intermediate SKIN MIRANDA Verified 02/09/19 21:25 celecoxib Allergy Mild RASH Verified 02/09/19 21:25 valsartan Allergy Unknown Unknown Verified 02/09/19 21:25 escitalopram AdvReac Severe Dizziness Unverified 02/04/19 15:52 fentanyl AdvReac Severe Arm Unverified 02/09/19 21:25 Numbness atorvastatin AdvReac Intermediate headaches Verified 02/09/19 21:25 sertraline AdvReac Unknown Unknown Unverified 02/04/19 15:52 acetaminophen [From Tylenol] AdvReac Liver Verified 02/09/19 21:25 Issues lorazepam AdvReac Confusion Verified 02/10/19 02:05 Past Med/Surg History Medical History Anxiety (Chronic) Asthma (Chronic) Borderline diabetes mellitus (Chronic) Cholangiocarcinoma (Chronic) diagnosed 2019 - followed by [facility] Chronic obstructive pulmonary disease (Chronic) never uses inhaler Depression (Chronic) Encounter for pre-operative examination (Resolved) Fatty liver GERD (gastroesophageal reflux disease) (Chronic) Gout (Chronic) Hiatal hernia (Chronic) Hyperlipidemia (Chronic) Hypertension (Chronic) Hypothyroid (Chronic) Lung cancer (Chronic) s/p left lower lobectomy Neuropathy (Chronic) [place] feet Osteoarthritis (Chronic) Port-A-Cath in place Severe sepsis (Acute) Surgical History H/O exploratory laparotomy (Resolved) for abdominal pain, found hiatal hernia History of arthroscopy of right knee (Resolved) History of cataract surgery (Resolved) History of section (Resolved) History of colonoscopy (Resolved) History of esophagogastroduodenoscopy (EGD) (Resolved) History of laminectomy (Resolved) History of laparoscopy 05/2018 [facility] - lymph node biopsy, liver biopsy History of lobectomy of lung (Chronic) left lower lobe. [facility] 05/04/17. MAC 3, ETT 7.5, no issues noted in anesthesia record. History of surgery (Resolved) removal of "eccrine" gland History of total abdominal hysterectomy and bilateral salpingo-oophorectomy (Resolved) Hx of cholecystectomy (Resolved) Family History Brother Family history of lung cancer Sister Family history of lung cancer sister Family history of kidney cancer Family history of skin cancer Family history of breast cancer Family history of uterine cancer Family history of ovarian cancer Mother , age 89 "old age" No problems noted. 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 and A total of 10 systems reviewed and were otherwise negative Physical Exam Vital Signs Vital Signs - 24 hr 02/09/19 22:30 Pulse Rate 103 H Pulse Rate from SpO2 Sensor 101 H Respiratory Rate 23 Blood Pressure 112/69 Blood Pressure Mean 76 Pulse Oximetry 97 Oxygen Delivery Method Room Air GENERAL: Awake, alert, well-appearing, in no acute distress HENT: Normocephalic, atraumatic. Oropharynx unremarkable. EYES: Normal conjunctiva. Sclera icteric. NECK: Supple. No nuchal rigidity. FROM. No JVD. RESPIRATORY: Clear to auscultation. CARDIAC: Regular rate, normal rhythm. Extremities warm and well perfused. Pulses equal. ABDOMEN: Soft, distended. No tenderness to palpation. No rebound or guarding. No masses. RECTAL: Deferred. MUSCULOSKELETAL: Chest examination reveals no tenderness. The back is symmetrical on inspection without obvious abnormality. There is no CVA tenderness to palpation. No joint edema. LOWER EXTREMITIES: Calves are equal size bilaterally and non-tender. No edema. No discoloration. NEURO: Normal sensorium. No sensory or motor deficits noted. SKIN: No rash or jaundice noted. Course Course 1838: The patient was evaluated in room B9, and a complete history and physical examination were performed. 2012: I had a discussion with the patient's daughter and her two sons over the phone. They state that they want to make her comfortable. 2014: I reviewed the patient's case with Dr. Arriaga- [facility] Hospitalist. He will evaluate the patient for further management. Administered Medications Morphine Sulfate (Morphine Sulf/Nss) 250 mg in 250 mls @ 3 mls/hr IV .Q24H PRN; Protocol PRN Reason: Pain Stop: 02/24/19 17:10 Last Titration: 02/10/19 20:24 Dose: 3 mg/hr, 3 mls/hr Documented by: [id number] Admin: 02/10/19 18:59 Dose: 2 mg/hr, 2 mls/hr Documented by: [id number] Titration: 02/10/19 18:59 Dose: 1 mg/hr, 1 mls/hr Documented by: [id number] Admin: 02/10/19 18:07 Dose: 1 mg/hr, 1 mls/hr Documented by: [id number] Morphine Sulfate (Morphine Sulfate) 2 mg IV Q2H PRN PRN Reason: Pain Stop: 02/24/19 00:09 Last Admin: 02/10/19 11:37 Dose: 2 mg Documented by: [id number] Discontinued Medications Hydromorphone HCl (Dilaudid) 0.5 mg IV Q15M PRN PRN Reason: Pain Stop: 02/23/19 20:13 Last Admin: 02/09/19 20:18 Dose: 0.5 mg Documented by: [id number] Hydromorphone HCl (Dilaudid) 0.5 mg IV Q2H PRN PRN Reason: Pain Stop: 02/23/19 18:19 Last Admin: 02/10/19 15:39 Dose: 0.5 mg Documented by: [id number] Admin: 02/10/19 13:02 Dose: 0.5 mg Documented by: [id number] Admin: 02/10/19 10:52 Dose: 0.5 mg Documented by: [id number] Admin: 02/10/19 08:15 Dose: 0.5 mg Documented by: [id number] Admin: 02/10/19 06:00 Dose: 0.5 mg Documented by: [id number] Admin: 02/10/19 01:28 Dose: 0.5 mg Documented by: [id number] Sodium Chloride (Nss 1000ml) 1,000 mls @ 999 mls/hr IV .Q1H1M ONE Stop: 02/09/19 20:46 Last Infusion: 02/09/19 20:51 Dose: 0 mls/hr Documented by: [id number] Admin: 02/09/19 19:50 Dose: 999 mls/hr Documented by: [id number] Piperacillin Sod/Tazobactam Sod (Zosyn) 4.5 gm in 120 mls @ 240 mls/hr IV NOW ONE Stop: 02/09/19 20:21 Last Infusion: 02/09/19 20:36 Dose: 0 mls/hr Documented by: [id number] Admin: 02/09/19 20:06 Dose: 240 mls/hr Documented by: [id number] Levofloxacin/Dextrose (Levaquin/D5w) 750 mg in 150 mls @ 100 mls/hr IV NOW STA Stop: 02/09/19 21:21 Last Infusion: 02/09/19 22:35 Dose: 0 mls/hr Documented by: [id number] Admin: 02/09/19 21:05 Dose: 100 mls/hr Documented by: [id number] Daptomycin 375 mg/ Syringe 7.5 mls @ 3.75 mls/min IV NOW ONE; Protocol Stop: 02/09/19 19:53 Last Admin: 02/09/19 21:02 Dose: 3.75 mls/min Documented by: [id number] Morphine Sulfate (Morphine Sulfate) Confirm Administered Dose 2 mg .ROUTE .Oncopeptides- [employer] ONE Stop: 02/10/19 00:07 Last Admin: 02/10/19 00:11 Dose: 2 mg Documented by: [id number] Medical Decision Making Differential Diagnosis Differential diagnosis: Etiologies such as metabolic, infection, hypo/hyperglycemia, electrolyte abnormalities, cardiac sources, intracerebral event, toxicologic, neurologic, as well as others were entertained. Medical Records Attestation: I reviewed the patient's medical records. Home Medications Current Medication List: was personally reviewed by me Laboratory Data Attestation: I reviewed the patient's lab results. Result diagrams: 02/09/19 19:08 02/09/19 19:03 Lab Results 02/09/19 02/09/19 02/09/19 Range/Units 19:03 19:03 19:08 WBC (4.8-10.8) K/uL RBC (4.2-5.4) M/uL Hgb (12.0-16.0) g/dL Hct (37-47) % MCV (80-100) fL MCH (25-34) pg MCHC (32-36) g/dL RDW Std Deviation (36.4-46.3) fL RDW Coeff of Harish (11.5-14.5) % Plt Count (130-400) K/uL MPV (7.4-10.4) fL Immature Gran % (Auto) % Neut % (Auto) % Lymph % (Auto) % [place] % (Auto) % Eos % (Auto) % Baso % (Auto) % Immature Gran # (Auto) (0.00-0.02) K/uL Neut # (Auto) (1.4-6.5) K/uL Lymph # (Auto) (1.2-3.4) K/uL [place] # (Auto) (0.11-0.59) K/uL Eos # (Auto) (0-0.5) K/uL Baso # (Auto) (0-0.2) K/uL Polychromasia Anisocytosis Macrocytosis Target Cells [place] Bodies PT 22.5 H (9.0-12.0) Seconds INR 2.3 H (0.9-1.1) APTT 33.0 H (21.0-31.0) Seconds PTT Ratio 1.2 Sodium 135 L (136-145) mmol/L Potassium 4.4 (3.5-5.1) mmol/L Chloride 96 L (98-107) mmol/L Carbon Dioxide 25 (21-32) mmol/L Anion Gap 14.0 H (3-11) BUN 41 H (7-18) mg/dl Creatinine 1.06 (0.6-1.2) mg/dl Est Cr Clr Drug Dosing 59.2 ml/min Est GFR ( Amer) 63.8 Est GFR (Non-Af Amer) 55.1 BUN/Creatinine Ratio 39.1 H (10-20) Glucose 90 (70-99) mg/dl Lactate 9.5 H* (0.4-2.0) mmol/L Calcium 8.9 (8.5-10.1) mg/dl Total Bilirubin 5.9 H (0.2-1) mg/dl Direct Bilirubin 4.8 H (0-0.2) mg/dl AST 55 H (15-37) U/L ALT 21 (12-78) U/L Alkaline Phosphatase 575 H (45-117) U/L Total Creatine Kinase 21 L (26-192) U/L CK-MB (CK-2) < 1.0 (0.5-3.6) ng/ml CK/CKMB % Calc TNP Troponin I < 0.015 (0-0.045) ng/ml Total Protein 7.9 (6.4-8.2) gm/dl Albumin 1.7 L (3.4-5.0) gm/dl TSH 4.330 (0.300-4.500) uIu/ml Influenza Type A (PCR) (Neg) Influenza Type B (PCR) (Neg) 02/09/19 02/09/19 Range/Units 19:08 19:52 WBC 31.37 H* (4.8-10.8) K/uL RBC 4.44 (4.2-5.4) M/uL Hgb 11.1 L (12.0-16.0) g/dL Hct 35.8 L (37-47) % MCV 80.6 (80-100) fL MCH 25.0 (25-34) pg MCHC 31.0 L (32-36) g/dL RDW Std Deviation 70.0 H (36.4-46.3) fL RDW Coeff of Harish 24.8 H (11.5-14.5) % Plt Count 228 (130-400) K/uL MPV 11.3 H (7.4-10.4) fL Immature Gran % (Auto) 0.8 % Neut % (Auto) 85.1 % Lymph % (Auto) 8.2 % [place] % (Auto) 5.3 % Eos % (Auto) 0.6 % Baso % (Auto) 0.0 % Immature Gran # (Auto) 0.26 H (0.00-0.02) K/uL Neut # (Auto) 26.68 H (1.4-6.5) K/uL Lymph # (Auto) 2.58 (1.2-3.4) K/uL [place] # (Auto) 1.66 H (0.11-0.59) K/uL Eos # (Auto) 0.18 (0-0.5) K/uL Baso # (Auto) 0.01 (0-0.2) K/uL Polychromasia 1+ Anisocytosis Present Macrocytosis Present Target Cells 1+ [place] Bodies Occasional PT (9.0-12.0) Seconds INR (0.9-1.1) APTT (21.0-31.0) Seconds PTT Ratio Sodium (136-145) mmol/L Potassium (3.5-5.1) mmol/L Chloride (98-107) mmol/L Carbon Dioxide (21-32) mmol/L Anion Gap (3-11) BUN (7-18) mg/dl Creatinine (0.6-1.2) mg/dl Est Cr Clr Drug Dosing ml/min Est GFR ( Amer) Est GFR (Non-Af Amer) BUN/Creatinine Ratio (10-20) Glucose (70-99) mg/dl Lactate (0.4-2.0) mmol/L Calcium (8.5-10.1) mg/dl Total Bilirubin (0.2-1) mg/dl Direct Bilirubin (0-0.2) mg/dl AST (15-37) U/L ALT (12-78) U/L Alkaline Phosphatase (45-117) U/L Total Creatine Kinase (26-192) U/L CK-MB (CK-2) (0.5-3.6) ng/ml CK/CKMB % Calc Troponin I (0-0.045) ng/ml Total Protein (6.4-8.2) gm/dl Albumin (3.4-5.0) gm/dl TSH (0.300-4.500) uIu/ml Influenza Type A (PCR) Neg for Influ A (Neg) Influenza Type B (PCR) Neg for Influ B (Neg) Imaging Data Radiologist's Impression: Radiology results as stated below per my review and the radiologist's interpretation: XR chest 1V portable CLINICAL HISTORY: weakness COMPARISON STUDY: 02/05/2019 FINDINGS: The cardiac and mediastinal contours remain stable. There is no focal pulmonary consolidation. There are no significant pleural effusions. There is minor interstitial thickening perhaps slightly less pronounced than on the prior study[ IMPRESSION: No acute findings. Electronically signed by: Adi Haro M.D. 02/09/2019 7:[address] head/brain wo con CLINICAL HISTORY: Acute change in mental status COMPARISON STUDY: 01/21/2019 TECHNIQUE: Axial CT of the brain is performed from the vertex to the skull base. IV contrast was not administered for this examination. A dose lowering technique was utilized adhering to the principles of ALARA. CT DOSE: FINDINGS: No intra or extra-axial mass lesions are visualized. There is no CT evidence of acute cortical infarction. There is no evidence of midline shift. There is no acute hemorrhage. No calvarial fractures are visualized. There are minor white matter hypodensities likely on a small vessel basis. There is no evidence of pathologic ventricular dilatation. There is no evidence of acute sinusitis IMPRESSION: No acute intracranial findings Electronically signed by: Adi Haro M.D. 02/09/2019 8:[address] SCAN OF THE ABDOMEN AND PELVIS WITHOUT CONTRAST CLINICAL HISTORY: Abdominal bloating. Elevated INR. Evaluate for hemorrhage. REPORTED HISTORY OF PRIOR CANCER WITH METASTATIC DISEASE COMPARISON STUDY: 12/03/2017 TECHNIQUE: CT scan of the abdomen and pelvis was performed from the lung bases to the proximal femurs. Images are reviewed in the axial, sagittal, and coronal planes. IV contrast was not administered for this examination. A dose lowering technique was utilized adhering to the principles of ALARA. CT DOSE: 1791.77 mGy.cm FINDINGS: Lower chest: There is a 4 mm right upper lobe pulmonary nodule. There is an 11 mm pleural-based right lower lobe pulmonary nodule. There is a 13 mm nodule abutting the right hemidiaphragm. There is a 12 mm left lower lobe para-aortic opacity. Multiple additional smaller nodules are visualized. Liver: There are innumerable hepatic masses consistent with extensive metastatic disease. This appears progressive when compared the preceding study. Gallbladder: Surgically absent Spleen: Normal in size and attenuation. Pancreas: There is a large retroperitoneal mass engulfing the pancreas celiac and superior mesenteric arteries. This measures 10 cm and has enlarged significantly when compared the preceding study. Adrenal glands: The left adrenal gland has engulfed by the above-mentioned large retroperitoneal mass Kidneys: The unenhanced kidneys are normal in size without hydronephrosis. There is no contour deforming renal mass lesion. No renal calculi are identified. Bowel: There are no transition zones indicate bowel obstruction. There is colonic diverticulosis. Peritoneum: There is been interval development of low to moderate volume ascites. There are multiple small mesenteric tumor implants. Vasculature: The abdominal aorta is normal in course and caliber. Adenopathy: There is progressive retroperitoneal aortocaval adenopathy. Pelvic viscera: There is a moderate amount of stool within the rectosigmoid. The uterus appears surgically absent Skeletal structures: There is a T12 compression fracture, possibly pathologic there is an S5 lytic focus. IMPRESSION: 1. Marked progression in the extensive hepatic metastasis 2. Significant enlargement in the retroperitoneal metastatic implant which engulfs the left adrenal gland pancreas as well as the celiac and superior mesenteric origins 3. Progressive metastatic adenopathy within the abdomen 4. Multiple small mesenteric tumor implants with interval development of low to moderate volume ascites 5. Probable pulmonary metastasis 6. Probable skeletal metastasis with a pathologic T12 compression fracture Electronically signed by: Adi Haro M.D. 02/09/2019 8:48 PM ECG Data Attestation: I personally reviewed and interpreted this ECG as follows: Indication: + weakness Rate (beats per minute): 96 Rhythm: + sinus rhythm ECG Intervals/blocks: + Incomplete right bundle branch block and + Prolonged QT Comparison ECG Date: from (01/24/19) Change: no significant change Blood Pressure Blood Pressure Findings: Low blood pressure Blood Pressure Disposition: further management by hospitalist ABILIO Narrative This 63-year-old female who presents emergency department over concerns that the patient has increasing jaundice and injected sclera. I am grossly concerned about the patient's elevation in her lactic acid as well as INR levels T bilirubin and white blood cell count. I had a lengthy discussion with the patient's family about the dire situation she is in. At this point they would just like to make the patient comfortable. They do not want her to be resuscitated if she expires. They did agree to fluids as well as antibiotics. She was given Dilaudid here for her pain. I did discuss the case with the hospitalist service who did agree to admit the patient. Impression & Plan Leukocytosis, Weakness Discharge Plan Visit Data *Final* Discharge Date/Time: 02/09/19 23:26 Chief Complaint: Weakness Stated Complaint: weakness ED Provider: Jun Fuentes Discharge Problem: Leukocytosis, Weakness Patient Disposition: Admitted As Inpatient Discharge Instructions Interventions: ED Discharge Assessment Last Done: 02/09/19 23:26 The scribe's documentation has been prepared under my direction and personally reviewed by me in its entirety. I confirm that the note above accurately reflects all work, treatment, procedures, and medical decision making performed by me.
--- NOTE | 2019-02-11 00:52 | Billing Data ---
Coding Level of Care Code 88936 Initial Inpt Care Lvl 2
--- NOTE | 2019-02-11 09:21 | Hospitalist Progress Note ---
Date of Service February 11, 2019 Assessment & Plan (1) Goals of care, counseling/discussion: Yessica is a 63-year-old female with a past medical history of metastatic cholangiocarcinoma, hypertension, hypothyroidism, and depression, recently admitted 01/20-02/05/19 for delirium, who presents today from [facility] due to generalized weakness, fatigue, abdominal pain, and abnormal labs as noted at [facility]. As noted in HPI, decision was made to make her comfort measures only after extensive discussion with 4 family members present at bedside. Goals of care discussion -Comfort measures only -Palliative and CM referrals placed -Atropine drops for secretions prn -continue morphine drip which appears to be controlling patient's discomfort well. Chronic pain 2/2 cholangio-carcinoma versus bony mets -Pain control with morphine gtt Depressed mood -ativan prn for agitation Chronic leukocytosis, elevated lactate -Declining further workup, fluids, antibiotics Cholangiocarcinoma Stage IV with liver, peritoneal, and lung metastasis MRCP 12/04/2018: Multifocal hepatic metastatic disease with retroperitoneal spread to the dorsal pancreas and left adrenal gland. CTA 01/01/2019: Enlarging pulmonary and pleural nodular densities compared to prior Continue pain control as above Nausea: Compazine IV as needed Hypertension, well controlled, with current hypotension -No intervention desired by family -NO transfer to ICU or pressors Code: DNR/DNI DVTP: declined by family Dispo: Comfort measures (2) Non-small cell cancer of left lung: (3) Metastatic cancer: (4) Cirrhosis: (5) Weakness: (6) Anxiety: (7) Depression: (8) Hypotension: (9) Elevated lactic acid level: (10) Elevated INR: Subjective Ms. Booth appears comfortable, sleeping, does not awaken when I call her name or examine her. Her family is bedside. Morphine drip at 3 mls/hr Physical Exam Physical Exam: General: no distress Respiratory: chest non tender, clear to auscultation, normal breath sounds, no respiratory distress, no accessory muscle use Cardiac: regular rate and rhythm, no rub or gallop, no murmur, +1 pitting edema bilateral lower extremities Neuro/Psych: obtunded Skin: jaundiced, dry PG Care Time/CCT Total # of Minutes Spent Total Time Spent with Patient: Total time spent is greater than 50% in coordination of care (as documented) at patient's floor/unit and/or counseling patient: (1) Depression Depression Type: other depression Qualified Code(s): F32.89 - Other specified depressive episodes
--- NOTE | 2019-02-14 20:53 | Death Summary ---
Date of Service February 11, 2019 Pronouncement Note PCOD Preliminary cause of : Non-small cell carcinoma of lung Contributing Factors (1) Goals of care, counseling/discussion: Contributing factors: on comfort care. (2) Non-small cell cancer of left lung: (3) Metastatic cancer: (4) Cirrhosis: (5) Weakness: (6) Anxiety: (7) Depression: (8) Hypotension: (9) Elevated lactic acid level: (10) Elevated INR: Additional Data Attending/PCP notified?: Yes Attending physician: Lucien Kwong MD
== END 2019-02-12 06:22 | disposition expired | DRG 436 ==
LOC: ED 18:32 → SUATTDRO 22:41 → 4W 22:41